=== PATIENT | female | born 1950 | race Two or more races ===

== ENCOUNTER 2024-10-14 10:28 | Inpatient (IN) | payer OTHER, MEDICAID ==
[~2024-10-14] VITALS: Ht 157.5 cm; Wt 70.5 kg
--- NOTE | 2024-10-14 10:34 | ED.PDOC ---
Altered Mental Status HPI Comments HPI: 74y F who presents to the ED via EMS for chief complaint of altered mental status and presents to the ED with the following: - EMS states pt has been having weakness for the past 2 days according to family - pt has been having nausea and vomiting in this time period and has been unable to keep anything down - pt is noted to be awake and alert in the ED and is alert and oriented x 1 only oriented to self name. - pt has history of liver cirrhosis and is noted to have abdominal distention with pt family telling EMS pt had paracentesis recently - pt noted to have lower extremity swelling and is known to not be complaint with Lasix. - pt unable to answer any further questions due to alerted mental status. VITALS: Temp: 98.0F RR: 14 02 sat : 98% on room air HR: 88 BP: 120/76 PMH: cirrhosis, HTN, PSH: unknown Social history: denies tobacco use, denies ETOH use, denies drug use Medications: spironolactone, lasix, omeprazole Allergies: nkda HPI: Poor Historian. Past Medcial History: Past Surgical History: REVIEW OF SYSTEMS: CONSTITUTIONAL: Denies acute: fever, diaphoresis, chills, HEAD: Denies acute: headache, photophobia Eyes: Denies acute: Double vision, vision loss, eye pain, eye discharge. EARS: Denies acute: tinnitus, hearing loss, ear discharge, ear pain, THROAT: Denies acute: sore throat, swelling, difficulty swallowing , pain with swallowing, change in voice. NECK: Denies acute: neck pain, neck swelling, stiff neck. HEART: Denies acute : chest pain, palpitations, LUNGS: Denies acute: SOB, wheezing, cough, hemoptysis ABDOMEN: Denies acute: abdominal pain, diarrhea, melena , hematemesis, hematochezia SKIN: Denies acute: rash, redness, lesions, itchiness. EXTREMITIES: Denies acute: calf pain, numbness, tingling, weakness, denies pain in extremity. Denies acute: Low back pain. Neuro: Denies acute: focal neurological deficit, motor or sensory focal neurological deficit, tremors, seizure like activity, loss of bowel or bladder function, cauda equina like symptoms. : Denies acute: dysuria, hematuria, flank pain, increase in urinary frequency. PSYCH: Denies acute: hallucination, suicidal ideation, homicidal ideation. FEMALE: Denies acute: abnormal vaginal bleeding, foul odor, unusual discharge. PHYSICAL EXAM: General: no acute distress, awake and alert. Head: normocephalic, atraumatic. Neck: supple, trachea is midline, no swelling. Throat: Normal phonation. Eyes:, no erythema, no purulent discharge, no proptosis, no icterus. Heart: regular rate, regular rhythm, no significant murmur appreciated. Lungs: no apparent respiratory distress, Able to speak in full sentences. No wheezing, no rhonchi, no crackles. No stridors Clear to auscultation bilaterally. Abdomen: non tender to palpation, noted distention , soft, no guarding, no rebound, + bowel sounds. Neuro: Awake, Alert, oriented to name, self, follows commands Skin: no petechia, no purpura, no cyanosis, non-pale, not jaundice. Lower extremities: --1/4 - Pitting edema no deformity, no focal swelling, no calf TTP. Makes eye contact. moves all four extremities. Face: no apparent facial droop. Time Seen by MD: 10:31 Reviewed Notes: Nurses Notes, Allergies Allergies: Coded Allergies: NO KNOWN ALLERGIES (Unverified , 10/14/24) Information Source: Patient, Emergency Med Personnel Mode of Arrival: EMS Past Medical History PAST MEDICAL HISTORY: HTN, Liver Surgical History: Unknown [employer]IC History: Unknown Family History Family History: Unknown Social History Smoker: Non-Smoker Alcohol: Denies ETOH Use Drugs: Denies Drug Use Lives In: Home Was a procedure done? Was a procedure done?: No Differential Diagnosis (ALOC) Differential Diagnosis: Other (DDX include CVA, TGA, cerebellar ischemia/infarct, carotid stenosis, Intracranial mass/infection/bleed, encephalopathy, electrolyte abnormality, thyroid disease, hydrocephalus, hypoglycemia, drug toxicity, cardiac arrhythmia, seizure, infection in the elderly, Hyperammonemia., kidney failure., sepsis.) X-Ray, Labs, Meds, VS Vital Signs Date Time Temp Pulse Resp B/P (MAP) Pulse Ox O2 Delivery O2 Flow Rate FiO2 10/14/24 14:00 86 12 108/61 (77) 100 10/14/24 12:00 86 10/14/24 11:27 80 18 98 Room Air* 0 21 10/14/24 11:26 98.0 80 18 122/72 (89) 98 98.0 10/14/24 10:52 126/42 10/14/24 10:36 98.0 88 14 120/76 (91) 98 10/14/24 10:33 83 Lab Test 10/14/24 11:00 Range/Units White Blood Count 3.0 L 4.4-10.8 10^3/uL Red Blood Count 3.34 L 4.0-5.20 10^6/uL Hemoglobin 8.0 L 12.2-16.2 g/dL Hematocrit 26.5 L 36.0-46.0 % Mean Corpuscular Volume 79.4 L 80.0-100.0 fL Mean Corpuscular Hemoglobin 24.0 L 28.0-32.0 pg Mean Corpuscular Hemoglobin Concent 30.3 L 32.0-36.0 g/dL Red Cell Distribution Width 17.5 H 11.8-14.3 % Platelet Count 74 L 140-450 10^3/uL Mean Platelet Volume 8.4 6.9-10.8 fL Neutrophils (%) (Auto) 70.4 37.0-80.0 % Lymphocytes (%) (Auto) 21.9 10.0-50.0 % Monocytes (%) (Auto) 6.3 0.0-12.0 % Eosinophils (%) (Auto) 0.1 0.0-7.0 % Basophils (%) (Auto) 1.3 0.0-2.0 % Neutrophils # (Auto) 2.1 1.6-8.6 10 ^3/uL Lymphocytes # (Auto) 0.7 0.4-5.4 10 ^3/uL Monocytes # (Auto) 0.2 0-1.3 10 ^3/uL Eosinophils # (Auto) 0 0-0.8 10 ^3/uL Basophils # (Auto) 0 0-0.2 10 ^3/uL Nucleated Red Blood Cells 0.7 % Sodium Level 146 H 136-145 mmol/L Potassium Level 4.4 3.5-5.1 mmol/L Chloride Level 118 H 98-107 mmol/L Carbon Dioxide Level 19 L 20-31 mmol/L Anion Gap 9 5-15 Blood Urea Nitrogen 44 H 9-23 mg/dL Creatinine 1.79 H 0.550-1.02 mg/dL Glomerular Filtration Rate Calc 30 >90 mL/min BUN/Creatinine Ratio 24.6 H 10.0-20.0 Serum Glucose 74 74-106 mg/dL Lactic Acid Level 1.7 0.4-2.0 mmol/L Calcium Level 9.0 8.7-10.4 mg/dL Magnesium Level 2.6 1.6-2.6 mg/dL Total Bilirubin 0.8 0.2-1.0 mg/dL Aspartate Amino Transferase (AST) 66 H 13-40 U/L Alanine Aminotransferase (ALT) 36 7-40 U/L Alkaline Phosphatase 97 46-116 U/L Ammonia 105 H 11-32 umol/L Troponin I High Sensitivity 74 *H </=34 ng/L B-Type Natriuretic Peptide 128.70 0-100 pg/mL Total Protein 5.2 L 5.7-8.2 g/dL Albumin 2.4 L 3.2-4.8 g/dL Current Medications Medications (Trade) Dose Ordered Sig/Leti Route Start Time Stop Time Status Last Admin Furosemide (Lasix Injection) 40 mg ONCE ONCE IV 10/14/24 10:45 10/14/24 10:46 DC 10/14/24 10:52 Lactulose 60 ml ONCE ONCE PO 10/14/24 10:45 10/14/24 10:46 DC 10/14/24 10:52 Ondansetron HCl (Zofran) 4 mg ONCE ONCE IV 10/14/24 12:15 10/14/24 12:16 DC 10/14/24 12:19 [place] [id number] Ph: [phone] DIAGNOSTIC IMAGING Diagnostic Imaging Report : [id number] Signed PATIENT: GEORGE ZUNIGA ACCT: [id number] UNIT: [id number] : 1950 LOC: ER ROOM / BED: / AGE / SEX: 74 / F ADM STATUS: REG ER SERVICE 1418 ORDERING PHYSICIAN: KEVIN RYDER DO PROCEDURE(s): ABDL - ABDOMEN LIMITED REASON: EVAL ASCITES ORDER NUMBER(s): [id number], ACCESSION NUMBER(s): [id number] ULTRASOUND ABDOMEN LIMITED INDICATION: EVAL ASCITES TECHNIQUE: Ultrasound of the 4 quadrants of the abdominal cavity. COMPARISON: None FINDINGS: There is moderate amount of fluid seen in all 4 quadrants of the abdominal cavity. IMPRESSION: 1. Moderate amount of ascites. HS:Y ATED BY: HUSSEIN CARMONA MD DICTATED DATE/TIME: 10/14/24 1440 SIGNED BY: HUSSEIN CARMONA MD SIGNED DATE/TIME: 10/14/24 1440 CC: [place] [id number] Ph: [phone] DIAGNOSTIC IMAGING Diagnostic Imaging Report : [id number] Signed PATIENT: GEORGE ZUNIGA ACCT: [id number] UNIT: [id number] : 1950 LOC: ER ROOM / BED: / AGE / SEX: 74 / F ADM STATUS: REG ER SERVICE 1238 ORDERING PHYSICIAN: KEVIN RYDER DO PROCEDURE(s): HWOCT - HEAD WITHOUT CONTRAST REASON: [facility] ORDER NUMBER(s): [id number], ACCESSION NUMBER(s): [id number] EXAM: CT HEAD WITHOUT CONTRAST HISTORY: AMS COMPARISON: None TECHNIQUE: Axial images of the head were obtained and reformatted in coronal and sagittal planes. All CT scans at this medical facility are performed using dose modulation techniques as appropriate to a performed exam including the following: Automated exposure control was utilized; adjustment of the MA and/or KV according to patient size; and use of iterative reconstruction technique. CT Dose: CTDI volume is 52 mGy. Dose-length product is 925 mGy*cm FINDINGS: There is no evidence of acute intracranial hemorrhage, mass, mass effect midline shift. There is no hydrocephalus or extra-axial fluid collection. There are several small hypodense foci in the left caudate head region which may represent chronic lacunar infarcts. Cardenas-white matter differentiation is maintained. Cardenas- white matter differentiation otherwise appears maintained. The visualized paranasal sinuses and mastoid air cells are clear. The calvarium is intact. IMPRESSION: 1. No acute intracranial process. HS:Y ATED BY: HUSSEIN CARMONA MD DICTATED DATE/TIME: 10/14/24 1320 SIGNED BY: HUSSEIN CARMONA MD SIGNED DATE/TIME: 10/14/24 1320 CC: [place] [id number] Ph: [phone] DIAGNOSTIC IMAGING Diagnostic Imaging Report : [id number] Signed PATIENT: GEORGE ZUNIGA ACCT: [id number] UNIT: [id number] : 1950 LOC: ER ROOM / BED: / AGE / SEX: 74 / F ADM STATUS: REG ER SERVICE 10 ORDERING PHYSICIAN: KEVIN RYDER DO PROCEDURE(s): ABPL - CT AB PEL WO CON-NO ORAL OR IV REASON: NAUSEA/VOMITING ORDER NUMBER(s): [id number], ACCESSION NUMBER(s): [id number] Exam: CT CT AB PEL WO CON-NO ORAL OR IV History: NAUSEA/VOMITING Comparison Study: None available at time of dictation. TECHNIQUE: Multidetector CT of the abdomen was performed from lung bases to pubic symphysis. Imaging was performed without IV contrast. Axial, coronal and sagittal multiplanar reformats were obtained from the axial data set by the technologist. Radiation Dose Information: CT Dose: CTDI volume is 14.47 mGy. Dose-length product is 794.27 mGy*cm FINDINGS: Evaluation of solid organs is limited due to lack of intravenous contrast use. Findings: Lung Bases: Scattered bibasilar ground-glass opacities. Normal heart size. No pleural or pericardial effusion. Liver: Cirrhotic liver morphology. No focal lesions are identified, though evaluation is severely limited in the absence of IV contrast. Gallbladder and Biliary Tree: Cholelithiasis. Spleen: Unremarkable Pancreas: The pancreas is grossly normal in appearance. Adrenal Glands: Unremarkable Kidneys: Kidneys are grossly normal without calculi or hydronephrosis. Bladder: Issa catheter within the urinary bladder. Bowel: Large hiatal hernia Small bowel and colon are normal in caliber and distribution. Diverticulosis. The appendix is not visualized. Ascites: Absent Lymphadenopathy: No mesenteric, retroperitoneal or periportal lymphadenopathy. Abdominal Wall and Mesentery: Diffuse corporal anasarca. Mesenteric edema. Vasculature: The visualized abdominal aorta is normal in size and caliber. Evaluation of abdominal and pelvic vessels is limited due to lack of intravenous contrast. Pelvic Organs: Curvilinear metallic density within the lower pelvis Musculoskeletal: No aggressive focal bony lesions, acute fractures or dislocation. Severe degenerative changes of the spine. Soft tissues: Unremarkable IMPRESSION: 1. Cirrhosis with large volume abdominal ascites. 2. Corporal anasarca and mesenteric edema. 3. Curvilinear metallic density within the lower pelvis of uncertain significance. 4. Cholelithiasis. 5. Large hiatal hernia. 6. Issa catheter in place. 7. Nonvisualized appendix. 8. Diverticulosis. Radiation optimization: All CT scans at this facility use at least one of these dose optimization techniques: automated exposure control mA and/or kV adjustment per patient size (includes targeted exams where dose is matched to clinical indication) or iterative reconstruction. HS:Y ATED BY: MANDIE ODELL DO DICTATED DATE/TIME: 10/14/241306 SIGNED BY: MANDIE ODELL DO SIGNED DATE/TIME: 10/14/241306 CC: [place] [id number] Ph: [phone] DIAGNOSTIC IMAGING Diagnostic Imaging Report : [id number] Signed PATIENT: GEORGE ZUNIGA ACCT: [id number] UNIT: [id number] : 1950 LOC: ER ROOM / BED: / AGE / SEX: 74 / F ADM STATUS: REG ER SERVICE 1034 ORDERING PHYSICIAN: KEVIN RYEDR DO PROCEDURE(s): CXRP - CHEST PORTABLE REASON: AMS ORDER NUMBER(s): [id number], ACCESSION NUMBER(s): [id number] CHEST RADIOGRAPH Indication: AMS Technique: Single frontal view of the chest was obtained COMPARISON: None FINDINGS: Lines and Tubes: None Lungs: Congestion Pleura: No effusion. No pneumothorax. Cardiomediastinal contours: Unremarkable Bones: Unremarkable IMPRESSION: Congestion ATED BY: REJI MACEDO MD DICTATED DATE/TIME: 10/14/241107 SIGNED BY: REJI MACEDO MD SIGNED DATE/TIME: 10/14/241107 CC: Time of 1ST Reevaluation: 12:41 (The case was discussed with the admitting team (HPI, physical exam, labs and diagnostic tests that were available at the time of disposition, ED course, treatment plan) on the phone. They agreed to admit the patient to their service and assume care of this patient from this point forward. ) Patient Education/Counseling: Other (altered) Family Education/Counseling: No Family Present Comments Patient presented with the above HPI.---altered mental status---workup was initiated. patient was found with the above mentioned diagnosis. the following medications were ordered: Lasix, lactulose, the following tests were ordered: EKGx1, chest x-ray, ammonia level, UA, troponin 1, magnesium, lactic acid, CMP, CBC, BNP, Patient ED course and VS have been stabilized. Patient has been reassessed in the ED and remained in a stable condition. Patient has been observed in the ED adequate length of time to insure improvement/stability. Escalation of care considered: Consideration of escalation to observation or admission. patient was admitted to the medicine team for further evaluation and treatment of their presentation. All the reports of any imaging studies that were ordered by myself were reviewed by myself. Departure 1 Departure Time of Disposition: 12:04 Impression: Primary Impression: Hepatic encephalopathy Additional Impressions: Hyperammonemia Anemia Thrombocytopenia Ascites Liver cirrhosis Disposition: ADMITTED INPATIENT Admit to: Tele Condition: Guarded Discharged With: Self Critical Care Note Critical Care Time?: No I personally scribed for KEVIN RYDER DO ([email or web address]) on 10/14/24 at 10:34. Electronically submitted by Jillian Rankin ([email or web address] I personally scribed for KEVIN RYDER DO ([email or web address]) on 10/14/24 at 11:22. Electronically submitted by Jillian Rankin ([email or web address]). I personally scribed for KEVIN RYDER DO ([email or web address]) on 10/14/24 at 14:36. Electronically submitted by Jillian Rankin ([email or web address]). I personally scribed for KEVIN RYDER DO ([email or web address]) on 10/14/24 at 21:59. Electronically submitted by Jillian Rankin ([email or web address]). KEVIN RYDER DO Oct 14, 2024 10:34
[2024-10-14] MEDS: LACTULOSE 20Gm/30ML SOLN PO ONE (10:52)
[2024-10-14] MEDS: FUROSEMIDE 40 MG/4 ML VIAL IV ONE (10:52)
--- NOTE | 2024-10-14 11:10 | DVH ---
CHEST RADIOGRAPH Indication: AMS Technique: Single frontal view of the chest was obtained COMPARISON: None FINDINGS: Lines and Tubes: None Lungs: Congestion Pleura: No effusion. No pneumothorax. Cardiomediastinal contours: Unremarkable Bones: Unremarkable IMPRESSION: Congestion
[2024-10-14 11:25] LABS: Basophils # (auto) 0 10 ^3/uL (0-0.2); Eosinophils # (auto) 0 10 ^3/uL (0-0.8); Eosinophils % (auto) 0.1 % (0.0-7.0); Monocytes # (auto) 0.2 10 ^3/uL (0-1.3); Monocytes % (auto) 6.3 % (0.0-12.0); Neutrophils # (auto) 2.1 10 ^3/uL (1.6-8.6); Red Cell Distribution Width 17.5 % (11.8-14.3)
[2024-10-14 11:27] VITALS: PULSE 80; RESP 18; O2SAT 98
[2024-10-14 11:27] LABS: Basophils % (auto) 1.3 % (0.0-2.0); Hematocrit 26.5 % (36.0-46.0); Lymphocytes # (auto) 0.7 10 ^3/uL (0.4-5.4); Lymphocytes % (auto) 21.9 % (10.0-50.0); Mean Corpuscular Hgb Conc. 30.3 g/dL (32.0-36.0); Mean Corpuscular Volume 79.4 fL (80.0-100.0); Neutrophils % (auto) 70.4 % (37.0-80.0); Nucleated Red Blood Cells % 0.7 %; Platelet Count (auto) 74 10^3/uL (140-450); Red Blood Cells 3.34 10^6/uL (4.0-5.20)
[2024-10-14 11:39] LABS: Alanine Aminotransferase 36 U/L (7-40); Alkaline Phosphatase 97 U/L (46-116); Anion Gap 9 (5-15); BUN/Creatinine Ratio 24.6 (10.0-20.0); Glucose 74 mg/dL (74-106); Magnesium 2.6 mg/dL (1.6-2.6); Potassium 4.4 mmol/L (3.5-5.1)
[2024-10-14 11:52] LABS: Albumin 2.4 g/dL (3.2-4.8); Aspartate Aminotransferase 66 U/L (13-40); Blood Urea Nitrogen 44 mg/dL (9-23); Carbon Dioxide 19 mmol/L (20-31); Chloride 118 mmol/L (98-107); Sodium 146 mmol/L (136-145); Total Protein 5.2 g/dL (5.7-8.2)
[2024-10-14 12:16] LABS: Bilirubin, Total 0.8 mg/dL (0.2-1.0)
[2024-10-14] MEDS: ONDANSETRON HCL 4 MG/2 ML VIAL IV ONE (12:19)
--- NOTE | 2024-10-14 13:09 | DVH ---
Exam: CT CT AB PEL WO CON-NO ORAL OR IV History: NAUSEA/VOMITING Comparison Study: None available at time of dictation. TECHNIQUE: Multidetector CT of the abdomen was performed from lung bases to pubic symphysis. Imaging was performed without IV contrast. Axial, coronal and sagittal multiplanar reformats were obtained fr om the axial data set by the technologist. Radiation Dose Information: CT Dose: CTDI volume is 14.47 mGy. Dose-length product is 794.27 mGy*cm FINDINGS: Evaluation of solid organs is limited due to lack of intravenous contrast use. Findings: Lung Bases: Scattered bibasilar ground-glass opacities. Normal heart size. No pleural or pericardial effusion. Liver: Cirrhotic liver morphology. No focal lesions are identified, though evaluation is severely li mited in the absence of IV contrast. Gallbladder and Biliary Tree: Cholelithiasis. Spleen: Unremarkable Pancreas: The pancreas is grossly normal in appearance. Adrenal Glands: Unremarkable Kidneys: Kidneys are grossly normal without calculi or hydronephrosis. Bladder: Issa catheter within the urinary bladder. Bowel: Large hiatal hernia Small bowel and colon are normal in caliber and distribution. Diverticulos is. The appendix is not visualized. Ascites: Absent Lymphadenopathy: No mesenteric, retroperitoneal or periportal lymphadenopathy. Abdominal Wall and Mesentery: Diffuse corporal anasarca. Mesenteric edema. Vasculature: The visualized abdominal aorta is normal in size and caliber. Evaluation of abdominal a nd pelvic vessels is limited due to lack of intravenous contrast. Pelvic Organs: Curvilinear metallic density within the lower pelvis Musculoskeletal: No aggressive focal bony lesions, acute fractures or dislocation. Severe degenerativ e changes of the spine. Soft tissues: Unremarkable IMPRESSION: 1. Cirrhosis with large volume abdominal ascites. 2. Corporal anasarca and mesenteric edema. 3. Curvilinear metallic density within the lower pelvis of uncertain significance. 4. Cholelithiasis. 5. Large hiatal hernia. 6. Issa catheter in place. 7. Nonvisualized appendix. 8. Diverticulosis. Radiation optimization: All CT scans at this facility use at least one of these dose optimization te chniques: automated exposure control mA and/or kV adjustment per patient size (includes targeted exa ms where dose is matched to clinical indication) or iterative reconstruction. HS:Y
--- NOTE | 2024-10-14 13:21 | DVH ---
EXAM: CT HEAD WITHOUT CONTRAST HISTORY: AMS COMPARISON: None TECHNIQUE: Axial images of the head were obtained and reformatted in coronal and sagittal planes. All CT scans at this medical facility are performed using dose modulation techniques as appropriate t o a performed exam including the following: Automated exposure control was utilized; adjustment of th e MA and/or KV according to patient size; and use of iterative reconstruction technique. CT Dose: CTDI volume is 52 mGy. Dose-length product is 925 mGy*cm FINDINGS: There is no evidence of acute intracranial hemorrhage, mass, mass effect midline shift. There is no h ydrocephalus or extra-axial fluid collection. There are several small hypodense foci in the left caud ate head region which may represent chronic lacunar infarcts. Cardenas-white matter differentiation is ma intained. Cardenas-white matter differentiation otherwise appears maintained. The visualized paranasal sinuses and mastoid air cells are clear. The calvarium is intact. IMPRESSION: 1. No acute intracranial process. HS:Y
[2024-10-14] MEDS ORDERED: MORPHINE SULFATE INJ 2 MG/ml SYRG IV PRN (14:30)
[2024-10-14] MEDS ORDERED: NITROGLYCERIN 0.4 MG SL TAB SL PRN (14:30)
[2024-10-14] MEDS: SODIUM CHLORIDE 0.9% 1,000 ML IV SCH (14:30)
--- NOTE | 2024-10-14 14:41 | DVH ---
ULTRASOUND ABDOMEN LIMITED INDICATION: EVAL ASCITES TECHNIQUE: Ultrasound of the 4 quadrants of the abdominal cavity. COMPARISON: None FINDINGS: There is moderate amount of fluid seen in all 4 quadrants of the abdominal cavity. IMPRESSION: 1. Moderate amount of ascites. HS:Y
[2024-10-14 15:33] LABS: INR 1.41 (0.9-1.15); Partial Thromboplastin Time 38.8 SEC (24.5-34.5); Prothrombin Time 14.6 sec (9.3-11.8)
--- NOTE | 2024-10-14 15:55 | DVHHP2 ---
History of Present Illness Reason for Visit: Altered level of sensorium History of Present Illness - EMS states pt has been having weakness for the past 2 days according to family - pt has been having nausea and vomiting in this time period and has been unable to keep anything down - pt is noted to be awake and alert in the ED and is alert and oriented x 1 only oriented to self name. - pt has history of liver cirrhosis and is noted to have abdominal distention with pt family telling EMS pt had paracentesis recently - pt noted to have lower extremity swelling and is known to not be complaint with Lasix. - pt unable to answer any further questions due to alerted mental status. Past Medical History Cirrhosis of the liver, end-stage liver disease with ascites, hepatic encephalopathy Past Surgical History: None Family History: Hypertension Smoke: No ALCOHOL: rare Drugs: None Lives: with Family Review of Systems Review of Systems Swazi-speaking female. Says yes no but unable to give much history when asked questions. Allergies: Coded Allergies: NO KNOWN ALLERGIES (Unverified , 10/14/24) Medications Current Medications Medications Dose Ordered Sig/Leti Route Start Time Stop Time Status Last Admin Dose Admin Nitroglycerin 0.4 mg Q5MINP PRN SL 10/14/24 14:30 Morphine Sulfate 2 mg Q30M PRN IV 10/14/24 14:30 Sodium Chloride 1,000 ml @ 100 mls/hr Q10H IV 10/14/24 14:30 10/14/24 14:30 100 MLS/HR Lactulose 30 ml Q4HR PO 10/14/24 18:00 Rifaximin 550 mg BID PO 10/14/24 22:00 Ondansetron HCl 4 mg Q4HPRN PRN IV 10/14/24 14:30 Acetaminophen 650 mg Q4HP PRN PO 10/14/24 14:30 Pantoprazole Sodium 40 mg BID IV 10/14/24 22:00 Exam Vital Signs Vital Signs Date Time Temp Pulse Resp B/P (MAP) Pulse Ox O2 Delivery O2 Flow Rate FiO2 10/14/24 15:37 82 18 118/68 (85) 100 10/14/24 11:27 Room Air* 0 21 10/14/24 11:26 98.0 98.0 Exam Elderly female in bed comfortable alert awake oriented to self only. HEENT notable for poor dentition. Pupils equal round react to light. Neck supple no JVD. Heart regular rate and rhythm S1 plus S2 without audible murmurs. Lungs fair air movement chest tube will expansion. No wheezing noted. Abdomen is distended. Tympanic to palpation. Nontender. Positive bowel sounds. Unable to palpate any organomegaly. Extremities trace edema around the ankles. Chronic venous stasis noted around the ankles/calf region in lower extremities. No focal neurological deficits noted Labs/Xrays Labs Test 10/14/24 14:48 10/14/24 11:00 Range/Units Prothrombin Time 14.6 H 9.3-11.8 sec Prothrombin Time INR 1.41 H 0.9-1.15 Activated Partial Thromboplast Time 38.8 H 24.5-34.5 SEC Lactic Acid Level 1.7 0.4-2.0 mmol/L Troponin I High Sensitivity 64 *H </=34 ng/L White Blood Count 3.0 L 4.4-10.8 10^3/uL Red Blood Count 3.34 L 4.0-5.20 10^6/uL Hemoglobin 8.0 L 12.2-16.2 g/dL Hematocrit 26.5 L 36.0-46.0 % Mean Corpuscular Volume 79.4 L 80.0-100.0 fL Mean Corpuscular Hemoglobin 24.0 L 28.0-32.0 pg Mean Corpuscular Hemoglobin Concent 30.3 L 32.0-36.0 g/dL Red Cell Distribution Width 17.5 H 11.8-14.3 % Platelet Count 74 L 140-450 10^3/uL Mean Platelet Volume 8.4 6.9-10.8 fL Neutrophils (%) (Auto) 70.4 37.0-80.0 % Lymphocytes (%) (Auto) 21.9 10.0-50.0 % Monocytes (%) (Auto) 6.3 0.0-12.0 % Eosinophils (%) (Auto) 0.1 0.0-7.0 % Basophils (%) (Auto) 1.3 0.0-2.0 % Neutrophils # (Auto) 2.1 1.6-8.6 10 ^3/uL Lymphocytes # (Auto) 0.7 0.4-5.4 10 ^3/uL Monocytes # (Auto) 0.2 0-1.3 10 ^3/uL Eosinophils # (Auto) 0 0-0.8 10 ^3/uL Basophils # (Auto) 0 0-0.2 10 ^3/uL Nucleated Red Blood Cells 0.7 % Sodium Level 146 H 136-145 mmol/L Potassium Level 4.4 3.5-5.1 mmol/L Chloride Level 118 H 98-107 mmol/L Carbon Dioxide Level 19 L 20-31 mmol/L Anion Gap 9 5-15 Blood Urea Nitrogen 44 H 9-23 mg/dL Creatinine 1.79 H 0.550-1.02 mg/dL Glomerular Filtration Rate Calc 30 >90 mL/min BUN/Creatinine Ratio 24.6 H 10.0-20.0 Serum Glucose 74 74-106 mg/dL Calcium Level 9.0 8.7-10.4 mg/dL Magnesium Level 2.6 1.6-2.6 mg/dL Total Bilirubin 0.8 0.2-1.0 mg/dL Aspartate Amino Transferase (AST) 66 H 13-40 U/L Alanine Aminotransferase (ALT) 36 7-40 U/L Alkaline Phosphatase 97 46-116 U/L B-Type Natriuretic Peptide 128.70 0-100 pg/mL Total Protein 5.2 L 5.7-8.2 g/dL Albumin 2.4 L 3.2-4.8 g/dL Assessment/Plan Assessment/Plan Head CT is negative for any acute stroke. Labs reviewed. We will admit to hospital. We will do serial troponins, 2D echo and cardiac eval. Patient is started on lactulose for elevated ammonia level. We will continue this. We will have GI consultation. We will try to obtain a paracentesis once again given abdominal distention. Otherwise continue rest of supportive care and t reatment. Further clinical management per clinical course and pending evaluations studies. Overall prognosis remains guarded given her advanced liver cirrhosis with ascites and hepatic encephalopathy. Plan discussed with: Patient, Other My Orders Orders - ABHISHEK FINE MD Procedure Category Date Status Time Paracentesis 10/14/24 Logged 14:16 * Radiologist Consult CONS 10/14/24 Transmitted 14:16 Admit ADMIT 10/14/24 Transmitted 14:20 Clear Liq Diet DIET 10/14/24 Transmitted Dinner * Gi Dvh Blind Lacer CONS 10/14/24 Transmitted 14:20 * Cardiology Consult CONS 10/14/24 Transmitted 14:20 Ammonia LAB 10/14/24 In Process 14:20 Complete Blood Count LAB 10/15/24 Verified 04:00 Comprehensive LAB 10/15/24 Verified Metabolic Panel 04:00 Ammonia LAB 10/15/24 Verified 04:00 Urinalysis LAB 10/15/24 Verified 04:00 Urine Bacterial BERT 10/14/24 Logged Culture 14:20 Lactic Acid W/ Reflex LAB 10/15/24 Verified Order 04:00 Nitroglycerin PHA 10/14/24 In Process Sublingual (Ntrostat 14:30 Morphine Sulfate PHA 10/14/24 In Process Injection 14:30 Stat Ekg For Chest ARCHANA 10/14/24 In Process Pain 14:20 Notify Of Changes ARCHANA 10/14/24 In Process From Base 14:20 Dress Shoe Inspector For ARCHANA 10/14/24 In Process 24 Hours 14:20 Emergency Dysrhythmia [facility] 10/14/24 In Process Protocol 14:20 Rhythm Strips Once [facility] 10/14/24 In Process Every Shift 14:20 Oxygen By Nasal RT 10/14/24 Transmitted Cannula 14:20 Troponin-I Hs LAB 10/14/24 Logged 17:20 Sodium Chloride 0.9% PHA 10/14/24 In Process 14:30 Lactulose Oral PHA 10/14/24 In Process 18:00 Rifaximin (Xifaxan) PHA 10/14/24 In Process 22:00 Ondansetron Hcl PHA 10/14/24 In Process (Zofran) 14:30 Acetaminophen Tablet PHA 10/14/24 In Process (Tylenol Tablet) 14:30 Pantoprazole PHA 10/14/24 In Process (Protonix) 22:00 Troponin-I Hs LAB 10/15/24 Verified 06:00 Covid19 Antigen [facility] LAB 10/14/24 Logged Rapid Influenza A&B LAB 10/14/24 Logged 14:25 Pt Request For Service PT 10/14/24 Logged 14:26 *Consult CONS 10/14/24 Transmitted / 15:34 Problem List: (1) Hepatic encephalopathy (2) Anemia (3) Thrombocytopenia (4) Hyperammonemia ABHISHEK FINE MD Oct 14, 2024 15:55
--- NOTE | 2024-10-14 16:29 | DVHINCON2 ---
Date of service: Oct 14, [address] Soledad Garvin Reason for Consultation Hepatic encephalopathy History of Present Illness 74y F who presents to the ED via EMS for chief complaint of altered mental status ; two day history of weakness nausea vomiting and inability to keep food down. There was no reported GI bleeding. Patient has some mild abdominal discomfort and has a history of ascites and had recent paracentesis. Patient is somewhat altered awake and alert and oriented x1. I was asked to evaluate her for underlying history of cirrhosis ascites and hepatic encephalopathy Past Medical History Past Medical History Cirrhosis of the liver, end-stage liver disease with ascites, hepatic encephalopathy Past Surgical History Past Surgical History: Paracentesis Allergies: Coded Allergies: NO KNOWN ALLERGIES (Unverified , 10/14/24) Current Medications Current Medications Medications (Trade) Dose Ordered Sig/Leti Route PRN Reason Start Time Stop Time Status Last Admin Nitroglycerin (Ntrostat Sublingual) 0.4 mg Q5MINP PRN SL FOR CHEST PAIN 10/14/24 14:30 Morphine Sulfate 2 mg Q30M PRN IV FOR CHEST PAIN 10/14/24 14:30 Sodium Chloride 1,000 ml @ 100 mls/hr Q10H IV 10/14/24 14:30 10/14/24 14:30 Lactulose 30 ml Q4HR PO 10/14/24 18:00 Rifaximin (Xifaxan) 550 mg BID PO 10/14/24 22:00 Ondansetron HCl (Zofran) 4 mg Q4HPRN PRN IV NAUSEA / VOMITING 10/14/24 14:30 Acetaminophen (Tylenol Tablet) 650 mg Q4HP PRN PO PAIN SCALE 1-3 OR TEMP>100.4 10/14/24 14:30 Pantoprazole Sodium (Protonix) 40 mg BID IV 10/14/24 22:00 Vital Signs Vital Signs Date Time Temp Pulse Resp B/P (MAP) Pulse Ox O2 Delivery O2 Flow Rate FiO2 10/14/24 15:37 82 18 118/68 (85) 100 10/14/24 11:27 Room Air* 0 21 10/14/24 11:26 98.0 98.0 Physical Exam Elderly thin female in bed comfortable alert awake oriented to self only. HEENT notable for poor dentition. Pupils equal round react to light. Neck supple no JVD. Lungs fair air movement chest tube will expansion. No wheezing noted Heart regular rate and rhythm S1 plus S2 without audible murmurs. Abdomen is distended. Tympanic to palpation. Nontender. Positive bowel sounds. Extremities trace edema around the ankles. Chronic venous stasis noted around the ankles/calf region in lower extremities. No focal neurological deficits noted Labs/Diagnostic Data Labs Test 10/14/24 14:48 10/14/24 11:00 Range/Units Prothrombin Time 14.6 H 9.3-11.8 sec Prothrombin Time INR 1.41 H 0.9-1.15 Activated Partial Thromboplast Time 38.8 H 24.5-34.5 SEC Lactic Acid Level 1.7 0.4-2.0 mmol/L Ammonia 89 H 11-32 umol/L Troponin I High Sensitivity 64 *H </=34 ng/L White Blood Count 3.0 L 4.4-10.8 10^3/uL Red Blood Count 3.34 L 4.0-5.20 10^6/uL Hemoglobin 8.0 L 12.2-16.2 g/dL Hematocrit 26.5 L 36.0-46.0 % Mean Corpuscular Volume 79.4 L 80.0-100.0 fL Mean Corpuscular Hemoglobin 24.0 L 28.0-32.0 pg Mean Corpuscular Hemoglobin Concent 30.3 L 32.0-36.0 g/dL Red Cell Distribution Width 17.5 H 11.8-14.3 % Platelet Count 74 L 140-450 10^3/uL Mean Platelet Volume 8.4 6.9-10.8 fL Neutrophils (%) (Auto) 70.4 37.0-80.0 % Lymphocytes (%) (Auto) 21.9 10.0-50.0 % Monocytes (%) (Auto) 6.3 0.0-12.0 % Eosinophils (%) (Auto) 0.1 0.0-7.0 % Basophils (%) (Auto) 1.3 0.0-2.0 % Neutrophils # (Auto) 2.1 1.6-8.6 10 ^3/uL Lymphocytes # (Auto) 0.7 0.4-5.4 10 ^3/uL Monocytes # (Auto) 0.2 0-1.3 10 ^3/uL Eosinophils # (Auto) 0 0-0.8 10 ^3/uL Basophils # (Auto) 0 0-0.2 10 ^3/uL Nucleated Red Blood Cells 0.7 % Sodium Level 146 H 136-145 mmol/L Potassium Level 4.4 3.5-5.1 mmol/L Chloride Level 118 H 98-107 mmol/L Carbon Dioxide Level 19 L 20-31 mmol/L Anion Gap 9 5-15 Blood Urea Nitrogen 44 H 9-23 mg/dL Creatinine 1.79 H 0.550-1.02 mg/dL Glomerular Filtration Rate Calc 30 >90 mL/min BUN/Creatinine Ratio 24.6 H 10.0-20.0 Serum Glucose 74 74-106 mg/dL Calcium Level 9.0 8.7-10.4 mg/dL Magnesium Level 2.6 1.6-2.6 mg/dL Total Bilirubin 0.8 0.2-1.0 mg/dL Aspartate Amino Transferase (AST) 66 H 13-40 U/L Alanine Aminotransferase (ALT) 36 7-40 U/L Alkaline Phosphatase 97 46-116 U/L B-Type Natriuretic Peptide 128.70 0-100 pg/mL Total Protein 5.2 L 5.7-8.2 g/dL Albumin 2.4 L 3.2-4.8 g/dL USG IMPRESSION: 1. Moderate amount of ascites. CT SCAN ABD PELVIS IMPRESSION: 1. Cirrhosis with large volume abdominal ascites. 2. Corporal anasarca and mesenteric edema. 3. Curvilinear metallic density within the lower pelvis of uncertain s ignificance. 4. Cholelithiasis. 5. Large hiatal hernia. 6. Issa catheter in place. 7. Nonvisualized appendix. 8. Diverticulosis. Problems(with codes): (1) Hyperammonemia (2) Thrombocytopenia (3) Anemia (4) Hepatic encephalopathy Plan/Recommendation Plan IV fluid hydration Lactulose 30 mL p.o. q.6 hours until diarrhea and then drop it down to 30 mL p.o. twice a day Patient has also been started on Xifaxan Patient is awaiting paracentesis and we will send fluid for analysis Vitamin K 10 mg IV to correct her coagulopathy Repeat labs in a.m. including CBC CMP PT INR hepatitis profile JORGE and ferritin Prognosis remains guarded Plan discussed with: Patient LINA DIAZ MD Oct 14, 2024 16:29
[2024-10-14] MEDS: phytonadione 10 MG in SODIUM CHL 0.9% 50 ML IV ONE (16:47)
[2024-10-14] MEDS: LACTULOSE 20Gm/30ML SOLN PO SCH (17:52)
--- NOTE | 2024-10-14 18:55 | ECG ---
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
[2024-10-14 19:25] LABS: Urine Bacteria None Seen /hpf (None Seen); Urine WBC None Seen /hpf (0 - 5)
[2024-10-14 19:40] LABS: Urine Blood Negative /uL (Negative); Urine Clarity Clear (Clear); Urine Color Light-Yellow (Yellow); Urine Hyaline Cast MOD /lpf (0 - 2); Urine Protein, UAD Negative (Negative); Urine Specific Gravity 1.011 (1.001-1.035); Urine Urobilinogen Normal (Negative)
[2024-10-14 20:38] VITALS: PULSE 98; RESP 12; O2SAT 100
[2024-10-14 21:57] LABS: COVID19 ANTIGEN SOFIA FIA NEGATIVE (NEGATIVE); Rapid Influenza A Negative (Negative); Rapid Influenza B Negative (Negative)
[2024-10-14] MEDS: rifAXIMin 550 MG TAB PO SCH (22:55)
[2024-10-14] MEDS: PANTOPRAZOLE 40 MG/10 ML VIAL INJ IV SCH (22:55)
[2024-10-15 07:15] LABS: Basophils # (auto) 0 10 ^3/uL (0-0.2); Basophils % (auto) 0.8 % (0.0-2.0); Eosinophils # (auto) 0 10 ^3/uL (0-0.8); Eosinophils % (auto) 0.2 % (0.0-7.0); Hematocrit 25.9 % (36.0-46.0); Hemoglobin 7.7 g/dL (12.2-16.2); Lymphocytes # (auto) 0.9 10 ^3/uL (0.4-5.4); Lymphocytes % (auto) 21.2 % (10.0-50.0); Mean Corpuscular Hemoglobin 24.2 pg (28.0-32.0); Mean Corpuscular Hgb Conc. 29.8 g/dL (32.0-36.0); Mean Corpuscular Volume 81.2 fL (80.0-100.0); Monocytes # (auto) 0.4 10 ^3/uL (0-1.3); Monocytes % (auto) 8.7 % (0.0-12.0); Neutrophils # (auto) 2.9 10 ^3/uL (1.6-8.6); Neutrophils % (auto) 69.1 % (37.0-80.0); Nucleated Red Blood Cells % 0.7 %; Platelet Count (auto) 84 10^3/uL (140-450); Red Blood Cells 3.19 10^6/uL (4.0-5.20); Red Cell Distribution Width 18.1 % (11.8-14.3); White Blood Cell 4.2 10^3/uL (4.4-10.8)
[2024-10-15 07:37] LABS: Alanine Aminotransferase 36 U/L (7-40); Alkaline Phosphatase 93 U/L (46-116); Anion Gap 12 (5-15); BUN/Creatinine Ratio 17.4 (10.0-20.0); Potassium 4.2 mmol/L (3.5-5.1)
[2024-10-15 07:38] LABS: Bilirubin, Total 0.9 mg/dL (0.2-1.0)
[2024-10-15 07:43] LABS: Albumin 2.4 g/dL (3.2-4.8); Aspartate Aminotransferase 58 U/L (13-40); Blood Urea Nitrogen 37 mg/dL (9-23); Carbon Dioxide 17 mmol/L (20-31); Chloride 121 mmol/L (98-107); Glucose 62 mg/dL (74-106); Sodium 150 mmol/L (136-145); Total Protein 5.3 g/dL (5.7-8.2)
[2024-10-15] MEDS: LACTULOSE 20Gm/30ML SOLN PO SCH ×2 (08:07→14:06)
[2024-10-15 08:25] VITALS: PULSE 101; RESP 12; O2SAT 100
--- NOTE | 2024-10-15 11:23 | DVHSR ---
APPROVED REPORT EXAM: Two-dimensional and M-mode echocardiogram with Doppler and color Doppler. Blood Pressure: 122/72 mmHg INDICATION eval for right heart failure elevated trop RISK FACTORS Height: 5'2, Weight: 99 DIMENSIONS LVDd3.6 (3.8-5.7cm)LA (2D)3.7 (1.9-4.0cm)Aortic Root3.2 (2.0-3.7cm) LVDs2.8 (2.5-4.0cm)LA (MM) (1.9-4.0cm)Aortic Cusp Exc1.7 (1.5-2.0cm) EF (%) 50.0 (55-70%)Rt. Atrium3.9 (1.9-4.0cm)Asc. Aorta3.6 cm IVSd1.1 (0.7-1.1cm)RV (D) (1.8-2.4cm) PWd1.0 (0.7-1.1cm) Mitral Valve MitralMitral Stenosis E wave0.49m/sMV Mean GR.mmHg A wave0.78m/sMV Peak GR.mmHg E/A ratio0.62D MVAcm2 DECEL [id number] 1/2 [place] Aortic Valve Aortic ValveAortic Stenosis V11.11m/[place] Mean GR.3mmHg V21.17m/[place] Peak GR.5mmHg LVOT Diameter2.2 (1.8-2.4cm)Doppler AVA3.60cm2 Pulmonic Valve V21.07m/s Tricuspid Valve TR Velocity2.38m/s [id number] Other Information Technically limited study due to pt confused unable to follow directions Conclusion lvef 65% LA markedly enlarged RV enlarged, normal function mild tricuspid regurg, not well seen however
[2024-10-15] MEDS: ACETAMINOPHEN 325 MG TAB PO PRN (12:07)
[2024-10-15] MEDS: ONDANSETRON HCL 4 MG/2 ML VIAL IV PRN (12:07)
[2024-10-15] MEDS: D5W 5% 1,000 ML IV SCH (12:09)
--- NOTE | 2024-10-15 12:40 | DVHINCON2 ---
Date of service: Oct 15, 2024 History of Present Illness History of Present Illness - EMS states pt has been having weakness for the past 2 days according to family - pt has been having nausea and vomiting in this time period and has been unable to keep anything down - pt is noted to be awake and alert in the ED and is alert and oriented x 1 only oriented to self name. - pt has history of liver cirrhosis and is noted to have abdominal distention with pt family telling EMS pt had paracentesis recently - pt noted to have lower extremity swelling and is known to not be complaint with Lasix. - pt unable to answer any further questions due to alerted mental status. Past Medical History Cirrhosis of the liver, end-stage liver disease with ascites, hepatic encephalopathy Past Surgical History: None Family History: Hypertension Smoke: No ALCOHOL: rare Drugs: None Lives: with Family Past Medical History reviewed Allergies: Coded Allergies: NO KNOWN ALLERGIES (Unverified , 10/14/24) Current Medications Current Medications Medications (Trade) Dose Ordered Sig/Leti Route PRN Reason Start Time Stop Time Status Last Admin Nitroglycerin (Ntrostat Sublingual) 0.4 mg Q5MINP PRN SL FOR CHEST PAIN 10/14/24 14:30 Morphine Sulfate 2 mg Q30M PRN IV FOR CHEST PAIN 10/14/24 14:30 Sodium Chloride 1,000 ml @ 100 mls/hr Q10H IV 10/14/24 14:30 10/15/24 11:43 DC 10/15/24 10:13 Lactulose 30 ml Q4HR PO 10/14/24 18:00 10/15/24 06:07 DC 10/15/24 04:02 Rifaximin (Xifaxan) 550 mg BID PO 10/14/24 22:00 10/15/24 10:03 Ondansetron HCl (Zofran) 4 mg Q4HPRN PRN IV NAUSEA / VOMITING 10/14/24 14:30 10/15/24 12:07 Acetaminophen (Tylenol Tablet) 650 mg Q4HP PRN PO PAIN SCALE 1-3 OR TEMP>100.4 10/14/24 14:30 10/15/24 12:07 Pantoprazole Sodium (Protonix) 40 mg BID IV 10/14/24 22:00 10/15/24 10:01 Lactulose 30 ml Q4H PO 10/15/24 08:00 10/15/24 11:43 DC 10/15/24 08:07 Lactulose 30 ml Q6H PO 10/15/24 14:00 Dextrose 1,000 ml @ 100 mls/hr Q10H IV 10/15/24 11:45 10/15/24 12:09 Review of Systems 10 pt ros otherwise negative Vital Signs Vital Signs Date Time Temp Pulse Resp B/P (MAP) Pulse Ox O2 Delivery O2 Flow Rate FiO2 10/15/24 09:30 98.0 101 11 102/61 (75) 100 98.0 10/15/24 08:25 Room Air* 0 21 Physical Exam nad s1 s2 rrr ctab +tender no edema Labs/Diagnostic Data Labs Test 10/15/24 06:24 10/14/24 20:24 10/14/24 19:05 10/14/24 14:48 Range/Units White Blood Count 4.2 #L 4.4-10.8 10^3/uL Red Blood Count 3.19 L 4.0-5.20 10^6/uL Hemoglobin 7.7 L 12.2-16.2 g/dL Hematocrit 25.9 L 36.0-46.0 % Mean Corpuscular Volume 81.2 80.0-100.0 fL Mean Corpuscular Hemoglobin 24.2 L 28.0-32.0 pg Mean Corpuscular Hemoglobin Concent 29.8 L 32.0-36.0 g/dL Red Cell Distribution Width 18.1 H 11.8-14.3 % Platelet Count 84 L 140-450 10^3/uL Mean Platelet Volume 8.4 6.9-10.8 fL Neutrophils (%) (Auto) 69.1 37.0-80.0 % Lymphocytes (%) (Auto) 21.2 10.0-50.0 % Monocytes (%) (Auto) 8.7 0.0-12.0 % Eosinophils (%) (Auto) 0.2 0.0-7.0 % Basophils (%) (Auto) 0.8 0.0-2.0 % Neutrophils # (Auto) 2.9 1.6-8.6 10 ^3/uL Lymphocytes # (Auto) 0.9 0.4-5.4 10 ^3/uL Monocytes # (Auto) 0.4 0-1.3 10 ^3/uL Eosinophils # (Auto) 0 0-0.8 10 ^3/uL Basophils # (Auto) 0 0-0.2 10 ^3/uL Nucleated Red Blood Cells 0.7 % Sodium Level 150 H 136-145 mmol/L Potassium Level 4.2 3.5-5.1 mmol/L Chloride Level 121 H 98-107 mmol/L Carbon Dioxide Level 17 L 20-31 mmol/L Anion Gap 12 5-15 Blood Urea Nitrogen 37 H 9-23 mg/dL Creatinine 2.13 H 0.550-1.02 mg/dL Glomerular Filtration Rate Calc 24 >90 mL/min BUN/Creatinine Ratio 17.4 10.0-20.0 Serum Glucose 62 L 74-106 mg/dL Lactic Acid Level 1.7 0.4-2.0 mmol/L Calcium Level 9.0 8.7-10.4 mg/dL Ferritin 35.4 10-291 ng/mL Total Bilirubin 0.9 0.2-1.0 mg/dL Aspartate Amino Transferase (AST) 58 H 13-40 U/L Alanine Aminotransferase (ALT) 36 7-40 U/L Alkaline Phosphatase 93 46-116 U/L Ammonia 61 H 11-32 umol/L Troponin I High Sensitivity 73 *H </=34 ng/L Total Protein 5.3 L 5.7-8.2 g/dL Albumin 2.4 L 3.2-4.8 g/dL Influenza Type A Antigen Negative Negative Influenza Type B Antigen Negative Negative SARS-CoV-2 Antigen (Rapid) Negative NEGATIVE Urine Color Light-yellow Yellow Urine Clarity Clear Clear Urine pH 5.0 5.0-9.0 Urine Specific [place] 1.011 1.001-1.035 Urine Protein Negative Negative Urine Ketones Negative Negative Urine Blood Negative Negative /uL Urine Nitrite Negative Negative Urine Bilirubin Negative Negative Urine Urobilinogen Normal Negative mg/dL Urine Leukocyte Esterase Negative Negative /uL Urine RBC None seen 0 - 4 /hpf Urine WBC None seen 0 - 5 /hpf Urine Squamous Epithelial Cells Few <5 /hpf Urine Bacteria None seen None Seen /hpf Urine Hyaline Casts Mod 0 - 2 /lpf Urine Glucose Normal Normal mg/dL Prothrombin Time 14.6 H 9.3-11.8 sec Prothrombin Time INR 1.41 H 0.9-1.15 Activated Partial Thromboplast Time 38.8 H 24.5-34.5 SEC Test 10/14/24 11:00 Range/Units Magnesium Level 2.6 1.6-2.6 mg/dL B-Type Natriuretic Peptide 128.70 0-100 pg/mL Assessment live failure ascites frailty hypotension elevated troponin Plan/Recommendation GI workup non cardiac cause of troponin rise normal lvef on echo diastolic dysfunction liver workup ongoing no further cv testing indicated Plan discussed with: Patient CHRISTIANO WORLEY MD Oct 15, 2024 12:40
--- NOTE | 2024-10-15 16:04 | DVHINCON2 ---
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 Nephrology consulted due to elevated creatinine level. Patient's baseline renal function is unknown to me. Patient is mildly lethargic and could not provide history. Allergies: Coded Allergies: NO KNOWN ALLERGIES (Unverified , 10/14/24) Current Medications Current Medications Medications (Trade) Dose Ordered Sig/Leti Route PRN Reason Start Time Stop Time Status Last Admin Lactulose 30 ml Q4HR PO 10/14/24 18:00 10/15/24 06:07 DC 10/15/24 04:02 Rifaximin (Xifaxan) 550 mg BID PO 10/14/24 22:00 10/15/24 10:03 Pantoprazole Sodium (Protonix) 40 mg BID IV 10/14/24 22:00 10/15/24 10:01 Lactulose 30 ml Q4H PO 10/15/24 08:00 10/15/24 11:43 DC 10/15/24 08:07 Lactulose 30 ml Q6H PO 10/15/24 14:00 10/15/24 14:06 Dextrose 1,000 ml @ 100 mls/hr Q10H IV 10/15/24 11:45 10/15/24 12:09 Review of Systems Abdominal distention decreased appetite H&P Exam Vital Signs/I&O Vital Sign Date Time Temp Pulse Resp B/P (MAP) Pulse Ox O2 Delivery O2 Flow Rate FiO2 10/15/24 15:27 83 12 104/77 (86) 97 10/15/24 09:30 98.0 98.0 10/15/24 08:25 Room Air* 0 21 Intake and Output 10/14/24 10/15/24 19:00 07:00 Intake Total 100 ml Balance 100 ml Intake IV Total 100 ml Physical Exam Elderly female Mildly lethargic but arousable Low blood pressure Mildly elevated JVD No peripheral edema Significantly distended abdomen with positive fluid wave Issa catheter minimal urinary output Jaundice Labs/Diagnostic Data Labs/Diagnostic Data Laboratory Tests Test 10/15/24 06:24 10/14/24 20:24 10/14/24 19:05 10/14/24 17:25 Range/Units White Blood Count 4.2 #L 4.4-10.8 10^3/uL Red Blood Count 3.19 L 4.0-5.20 10^6/uL Hemoglobin 7.7 L 12.2-16.2 g/dL Hematocrit 25.9 L 36.0-46.0 % Mean Corpuscular Volume 81.2 80.0-100.0 fL Mean Corpuscular Hemoglobin 24.2 L 28.0-32.0 pg Mean Corpuscular Hemoglobin Concent 29.8 L 32.0-36.0 g/dL Red Cell Distribution Width 18.1 H 11.8-14.3 % Platelet Count 84 L 140-450 10^3/uL Mean Platelet Volume 8.4 6.9-10.8 fL Neutrophils (%) (Auto) 69.1 37.0-80.0 % Lymphocytes (%) (Auto) 21.2 10.0-50.0 % Monocytes (%) (Auto) 8.7 0.0-12.0 % Eosinophils (%) (Auto) 0.2 0.0-7.0 % Basophils (%) (Auto) 0.8 0.0-2.0 % Neutrophils # (Auto) 2.9 1.6-8.6 10 ^3/uL Lymphocytes # (Auto) 0.9 0.4-5.4 10 ^3/uL Monocytes # (Auto) 0.4 0-1.3 10 ^3/uL Eosinophils # (Auto) 0 0-0.8 10 ^3/uL Basophils # (Auto) 0 0-0.2 10 ^3/uL Nucleated Red Blood Cells 0.7 % Sodium Level 150 H 136-145 mmol/L Potassium Level 4.2 3.5-5.1 mmol/L Chloride Level 121 H 98-107 mmol/L Carbon Dioxide Level 17 L 20-31 mmol/L Anion Gap 12 5-15 Blood Urea Nitrogen 37 H 9-23 mg/dL Creatinine 2.13 H 0.550-1.02 mg/dL Glomerular Filtration Rate Calc 24 >90 mL/min BUN/Creatinine Ratio 17.4 10.0-20.0 Serum Glucose 62 L 74-106 mg/dL Lactic Acid Level 1.7 0.4-2.0 mmol/L Calcium Level 9.0 8.7-10.4 mg/dL Ferritin 35.4 10-291 ng/mL Total Bilirubin 0.9 0.2-1.0 mg/dL Aspartate Amino Transferase (AST) 58 H 13-40 U/L Alanine Aminotransferase (ALT) 36 7-40 U/L Alkaline Phosphatase 93 46-116 U/L Ammonia 61 H 11-32 umol/L Troponin I High Sensitivity 73 *H 67 *H </=34 ng/L Total Protein 5.3 L 5.7-8.2 g/dL Albumin 2.4 L 3.2-4.8 g/dL Influenza Type A Antigen Negative Negative Influenza Type B Antigen Negative Negative SARS-CoV-2 Antigen (Rapid) Negative NEGATIVE Urine Color Light-yellow Yellow Urine Clarity Clear Clear Urine pH 5.0 5.0-9.0 Urine Specific [place] 1.011 1.001-1.035 Urine Protein Negative Negative Urine Ketones Negative Negative Urine Blood Negative Negative /uL Urine Nitrite Negative Negative Urine Bilirubin Negative Negative Urine Urobilinogen Normal Negative mg/dL Urine Leukocyte Esterase Negative Negative /uL Urine RBC None seen 0 - 4 /hpf Urine WBC None seen 0 - 5 /hpf Urine Squamous Epithelial Cells Few <5 /hpf Urine Bacteria None seen None Seen /hpf Urine Hyaline Casts Mod 0 - 2 /lpf Urine Glucose Normal Normal mg/dL Test 10/14/24 14:48 10/14/24 11:00 Range/Units Prothrombin Time 14.6 H 9.3-11.8 sec Prothrombin Time INR 1.41 H 0.9-1.15 Activated Partial Thromboplast Time 38.8 H 24.5-34.5 SEC Lactic Acid Level 1.7 1.7 0.4-2.0 mmol/L Ammonia 89 H 105 H 11-32 umol/L Troponin I High Sensitivity 64 *H 74 *H </=34 ng/L White Blood Count 3.0 L 4.4-10.8 10^3/uL Red Blood Count 3.34 L 4.0-5.20 10^6/uL Hemoglobin 8.0 L 12.2-16.2 g/dL Hematocrit 26.5 L 36.0-46.0 % Mean Corpuscular Volume 79.4 L 80.0-100.0 fL Mean Corpuscular Hemoglobin 24.0 L 28.0-32.0 pg Mean Corpuscular Hemoglobin Concent 30.3 L 32.0-36.0 g/dL Red Cell Distribution Width 17.5 H 11.8-14.3 % Platelet Count 74 L 140-450 10^3/uL Mean Platelet Volume 8.4 6.9-10.8 fL Neutrophils (%) (Auto) 70.4 37.0-80.0 % Lymphocytes (%) (Auto) 21.9 10.0-50.0 % Monocytes (%) (Auto) 6.3 0.0-12.0 % Eosinophils (%) (Auto) 0.1 0.0-7.0 % Basophils (%) (Auto) 1.3 0.0-2.0 % Neutrophils # (Auto) 2.1 1.6-8.6 10 ^3/uL Lymphocytes # (Auto) 0.7 0.4-5.4 10 ^3/uL Monocytes # (Auto) 0.2 0-1.3 10 ^3/uL Eosinophils # (Auto) 0 0-0.8 10 ^3/uL Basophils # (Auto) 0 0-0.2 10 ^3/uL Nucleated Red Blood Cells 0.7 % Sodium Level 146 H 136-145 mmol/L Potassium Level 4.4 3.5-5.1 mmol/L Chloride Level 118 H 98-107 mmol/L Carbon Dioxide Level 19 L 20-31 mmol/L Anion Gap 9 5-15 Blood Urea Nitrogen 44 H 9-23 mg/dL Creatinine 1.79 H 0.550-1.02 mg/dL Glomerular Filtration Rate Calc 30 >90 mL/min BUN/Creatinine Ratio 24.6 H 10.0-20.0 Serum Glucose 74 74-106 mg/dL Calcium Level 9.0 8.7-10.4 mg/dL Magnesium Level 2.6 1.6-2.6 mg/dL Total Bilirubin 0.8 0.2-1.0 mg/dL Aspartate Amino Transferase (AST) 66 H 13-40 U/L Alanine Aminotransferase (ALT) 36 7-40 U/L Alkaline Phosphatase 97 46-116 U/L B-Type Natriuretic Peptide 128.70 0-100 pg/mL Total Protein 5.2 L 5.7-8.2 g/dL Albumin 2.4 L 3.2-4.8 g/dL Assessment Acute kidney injury likely prerenal can not exclude hepatorenal syndrome No previous baseline to determine evidence of CKD at this time Cirrhosis due to liver disease with large volume ascites Anemia likely due to blood loss Thrombocytopenia Hepatic encephalopathy Hypoalbuminemia Recommend low-salt diet Avoid hypotension IV albumin Maintain mean arterial pressure greater than 65 Midodrine, octreotide, Paracentesis Strict Is&Os Monitor urinary output Iron replacement Gastroenterology No evidence of urinary obstruction Plan discussed with: Patient DEEPA SHANKS MD Oct 15, 2024 16:04
[2024-10-15] MEDS: ALBUMIN 25% 50 ML IV SCH (16:28)
--- NOTE | 2024-10-15 17:25 | DVHPN2 ---
Progress Note - Dictate Date Seen: Oct 15, 2024 Medical Necessity Reason Pt with a Central, PICC or Fol: No Subjective Comfortable in bed. No complaints. Ammonia level has improved. Evaluated by clinical laboratory aide. vital signs Vital Sign Date Time Temp Pulse Resp B/P (MAP) Pulse Ox O2 Delivery O2 Flow Rate FiO2 10/15/24 15:27 83 12 104/77 (86) 97 10/15/24 09:30 98.0 98.0 10/15/24 08:25 Room Air* 0 21 Total Intake and Output 10/14/24 10/14/24 10/15/24 15:00 23:00 07:00 Intake Total 100 ml Balance 100 ml medications Current Medications Medications Dose Ordered Sig/Leti Route Start Time Stop Time Status Last Admin Dose Admin Nitroglycerin 0.4 mg Q5MINP PRN SL 10/14/24 14:30 Morphine Sulfate 2 mg Q30M PRN IV 10/14/24 14:30 Rifaximin 550 mg BID PO 10/14/24 22:00 10/15/24 10:03 550 MG Ondansetron HCl 4 mg Q4HPRN PRN IV 10/14/24 14:30 10/15/24 12:07 4 MG Acetaminophen 650 mg Q4HP PRN PO 10/14/24 14:30 10/15/24 12:07 650 MG Pantoprazole Sodium 40 mg BID IV 10/14/24 22:00 10/15/24 10:01 40 MG Lactulose 30 ml Q6H PO 10/15/24 14:00 10/15/24 14:06 30 ML Albumin Human 50 ml @ 100 mls/hr Q8H IV 10/15/24 16:15 10/16/24 08:44 10/15/24 16:28 100 MLS/HR Midodrine 2.5 mg TID@0600,1200,1800 PO 10/15/24 18:00 objective Abdomen soft positive bowel sounds nontender. Extremities no edema. Heart regular rate and rhythm S1 plus S2. Lungs without rales wheezes. laboratory and microbiology Laboratory Tests 10/15/24 06:24 Test 10/15/24 06:24 Range/Units Serum Glucose 62 L 74-106 mg/dL Assessment/Plan Advance diet as tolerated. Physical therapy evaluation. Continue rest of supportive care and treatment. Follow clinical management per clinical course. Still waiting for paracentesis. Problems(with codes): (1) Liver cirrhosis (2) Thrombocytopenia (3) Hyperammonemia (4) Ascites (5) Hepatic encephalopathy Plan discussed with: Other ABHISHEK FINE MD Oct 15, 2024 17:25
[2024-10-15] MEDS: MIDODRINE HCL 10 MG TAB PO SCH (17:31)
[2024-10-15 19:43] VITALS: PULSE 80; RESP 14; O2SAT 99
--- NOTE | 2024-10-15 22:14 | DVHPN2 ---
Progress Note - Dictate Date Seen: Oct 15, 2024 Medical Necessity Reason Pt with a Central, PICC or Fol: No Subjective Patient seen at bedside in ER bed 18 She is tolerating clear liquid diet Patient is more awake alert however she is still oriented x2 There was no GI bleeding reported vital signs Vital Sign Date Time Temp Pulse Resp B/P (MAP) Pulse Ox O2 Delivery O2 Flow Rate FiO2 10/15/24 21:00 100 13 110/68 (82) 100 10/15/24 19:43 Room Air* 0 21 10/15/24 19:43 98.0 98.0 Total Intake and Output 10/14/24 10/14/24 10/15/24 15:00 23:00 07:00 Intake Total 100 ml Balance 100 ml medications Current Medications Medications Dose Ordered Sig/Leti Route Start Time Stop Time Status Last Admin Dose Admin Nitroglycerin 0.4 mg Q5MINP PRN SL 10/14/24 14:30 Morphine Sulfate 2 mg Q30M PRN IV 10/14/24 14:30 Rifaximin 550 mg BID PO 10/14/24 22:00 10/15/24 10:03 550 MG Ondansetron HCl 4 mg Q4HPRN PRN IV 10/14/24 14:30 10/15/24 12:07 4 MG Acetaminophen 650 mg Q4HP PRN PO 10/14/24 14:30 10/15/24 12:07 650 MG Pantoprazole Sodium 40 mg BID IV 10/14/24 22:00 10/15/24 10:01 40 MG Lactulose 30 ml Q6H PO 10/15/24 14:00 10/15/24 20:15 30 ML Albumin Human 50 ml @ 100 mls/hr Q8H IV 10/15/24 16:15 10/16/24 08:44 10/15/24 16:28 100 MLS/HR Midodrine 2.5 mg TID@0600,1200,1800 PO 10/15/24 18:00 10/15/24 17:31 2.5 MG objective Elderly thin female in bed comfortable alert awake oriented to self only. HEENT notable for poor dentition. Pupils equal round react to light. Neck supple no JVD. Lungs fair air movement chest tube will expansion. No wheezing noted Heart regular rate and rhythm S1 plus S2 without audible murmurs. Abdomen is distended. Tympanic to palpation. Nontender. Positive bowel sounds. Extremities trace edema around the ankles. Chronic venous stasis noted around the ankles/calf region in lower extremities. No focal neurological deficits noted laboratory and microbiology Laboratory Tests 10/15/24 06:24 Test 10/15/24 06:24 Range/Units Serum Glucose 62 L 74-106 mg/dL Problems(with codes): (1) Hyperammonemia (2) Thrombocytopenia (3) Liver cirrhosis (4) Ascites (5) Anemia (6) Hepatic encephalopathy Prognosis Plan MELD score is 18 points, low mortality risk IV fluid hydration Lactulose 30 mL p.o. q.6 hours until diarrhea and then drop it down to 30 mL p.o. twice a day Patient has also been started on Xifaxan Patient is awaiting paracentesis and we will send fluid for analysis Vitamin K 10 mg IV to correct her coagulopathy Repeat labs in a.m. including CBC CMP PT INR hepatitis profile JORGE and ferritin Prognosis remains guarded Plan discussed with: Patient, Other (ER Nurse) LINA DIAZ MD Oct 15, 2024 22:14
[2024-10-15 22:50] VITALS: BP 111/64; PULSE 84; RESP 16; TEMP 97.9; O2SAT 98
[2024-10-16] VITALS (8 sets, daily range): BP systolic 94–101; BP diastolic 44–62; PULSE 57–86; RESP 16–19; TEMP 97.6–98.3; O2SAT 95–99
[2024-10-16 06:09] LABS: Calcium 9.1 mg/dL (8.7-10.4); Potassium 3.8 mmol/L (3.5-5.1)
[2024-10-16 06:10] LABS: Anion Gap 11 (5-15)
[2024-10-16 06:15] LABS: BUN/Creatinine Ratio 16.4 (10.0-20.0)
[2024-10-16 06:17] LABS: Blood Urea Nitrogen 40 mg/dL (9-23); Carbon Dioxide 17 mmol/L (20-31); Chloride 121 mmol/L (98-107); Glucose 65 mg/dL (74-106); Sodium 149 mmol/L (136-145)
[2024-10-16 06:21] LABS: % Iron Saturation 4.8 % (15-50)
--- NOTE | 2024-10-16 13:47 | DVHPN2 ---
Progress Note Date Seen: Oct 16, 2024 Medical Necessity Reason Pt with a Central, PICC or Fol: Yes The following are medically ne: Issa Catheter Subjective Patient reports: Other Review of Systems: GI:Abnormal Objective vital signs Vital Sign Date Time Temp Pulse Resp B/P (MAP) Pulse Ox O2 Delivery O2 Flow Rate FiO2 10/16/24 12:33 98.1 86 17 101/44 (63) 95 98.1 10/16/24 07:50 Room Air* 0 21 Total Intake and Output 10/15/24 10/15/24 10/16/24 15:00 23:00 07:00 Intake Total 800 ml 150 ml 240 ml Output Total 350 ml Balance 800 ml 150 ml -110 ml medications Current Medications Medications Dose Ordered Sig/Leti Route Start Time Stop Time Status Last Admin Dose Admin Nitroglycerin 0.4 mg Q5MINP PRN SL 10/14/24 14:30 Morphine Sulfate 2 mg Q30M PRN IV 10/14/24 14:30 Rifaximin 550 mg BID PO 10/14/24 22:00 10/16/24 09:03 550 MG Ondansetron HCl 4 mg Q4HPRN PRN IV 10/14/24 14:30 10/15/24 12:07 4 MG Acetaminophen 650 mg Q4HP PRN PO 10/14/24 14:30 10/15/24 12:07 650 MG Pantoprazole Sodium 40 mg BID IV 10/14/24 22:00 10/16/24 09:03 40 MG Midodrine 2.5 mg TID@0600,1200,1800 PO 10/15/24 18:00 10/16/24 12:03 2.5 MG Lactulose 30 ml Q8H PO 10/16/24 16:00 UNV Examination: GENERAL:Abnormal, CVS:Abnormal, ABDOMEN:Abnormal, SKIN:Abnormal laboratory and microbiology Laboratory Tests 10/16/24 05:01 10/15/24 06:24 Test 10/16/24 05:01 Range/Units Serum Glucose 65 L 74-106 mg/dL Microbiology Date/Time Source Procedure Growth Status 10/14/24 19:05 Urine - Midstream Clean Catch Urine Culture - Preliminary Resulted Problem List/Assessment/Plan Problem List/Assessment/Plan Acute kidney injury likely prerenal can not exclude hepatorenal syndrome No previous baseline to determine evidence of CKD at this time Cirrhosis due to liver disease with large volume ascites Anemia likely due to blood loss Thrombocytopenia Hepatic encephalopathy Hypoalbuminemia Recommend low-salt diet Avoid hypotension IV albumin completed Maintain mean arterial pressure greater than 65 Midodrine, octreotide, Paracentesis Strict Is&Os Monitor urinary output Iron replacement IV IVF Gastroenterology No evidence of urinary obstruction Plan discussed with: Patient My Orders My Orders Orders - DEEPA SHANKS MD Procedure Category Date Status Time Midodrine Tablet PHA 10/15/24 In Process (Proamatine Tablet) 18:00 DEEPA SHANKS MD Oct 16, 2024 13:47
--- NOTE | 2024-10-16 15:24 | DVHPN2 ---
Progress Note - Dictate Date Seen: Oct 16, 2024 Medical Necessity Reason Pt with a Central, PICC or Fol: Yes The following are medically ne: Issa Catheter Subjective Comfortable in bed. No complaints. Patient's granddaughters are at bedside. Ammonia level is normalized. vital signs Vital Sign Date Time Temp Pulse Resp B/P (MAP) Pulse Ox O2 Delivery O2 Flow Rate FiO2 10/16/24 12:33 98.1 86 17 101/44 (63) 95 98.1 10/16/24 07:50 Room Air* 0 21 Total Intake and Output 10/15/24 10/15/24 10/16/24 15:00 23:00 07:00 Intake Total 800 ml 150 ml 240 ml Output Total 350 ml Balance 800 ml 150 ml -110 ml medications Current Medications Medications Dose Ordered Sig/Leti Route Start Time Stop Time Status Last Admin Dose Admin Nitroglycerin 0.4 mg Q5MINP PRN SL 10/14/24 14:30 Morphine Sulfate 2 mg Q30M PRN IV 10/14/24 14:30 Rifaximin 550 mg BID PO 10/14/24 22:00 10/16/24 09:03 550 MG Ondansetron HCl 4 mg Q4HPRN PRN IV 10/14/24 14:30 10/15/24 12:07 4 MG Acetaminophen 650 mg Q4HP PRN PO 10/14/24 14:30 10/15/24 12:07 650 MG Pantoprazole Sodium 40 mg BID IV 10/14/24 22:00 10/16/24 09:03 40 MG Midodrine 2.5 mg TID@0600,1200,1800 PO 10/15/24 18:00 10/16/24 12:03 2.5 MG Lactulose 30 ml Q8H PO 10/16/24 16:00 Iron Sucrose 110 ml @ 110 mls/hr DAILY@1200 IV 10/17/24 12:00 10/21/24 12:59 objective Alert and awake knows her name. HEENT notable for poor dentition. Pupils equal round react to light. Abdomen soft positive bowel sounds nontender. Extremities no edema. Heart regular rate and rhythm S1 plus S2. Lungs without rales wheezes. laboratory and microbiology Laboratory Tests 10/16/24 05:01 10/15/24 06:24 Test 10/16/24 05:01 Range/Units Serum Glucose 65 L 74-106 mg/dL Assessment/Plan Advance diet as tolerated. Physical therapy evaluation. Proceed with paracentesis hopefully will done tomorrow. No interventional radiologist or GI available for paracentesis over the weekend. Cut down lactulose to twice a day. Continue rest of supportive care and treatment. Further management for clinical course and recommendations of the consultants. Discussed with the the patient's/granddaughters as well as nurse regarding care plan at bedside. Problems(with codes): (1) Hepatic encephalopathy (2) Anemia (3) Ascites (4) Liver cirrhosis (5) Thrombocytopenia (6) Hyperammonemia Plan discussed with: Patient, Other ABHISHEK FINE MD Oct 16, 2024 15:24
[2024-10-16] MEDS: SOD CHL 0.45% 1,000 ML IV ONE (16:16)
[2024-10-16] MEDS: LACTULOSE 20Gm/30ML SOLN PO SCH (16:17)
--- NOTE | 2024-10-16 21:30 | DVHPN2 ---
Progress Note - Dictate Date Seen: Oct 16, 2024 Medical Necessity Reason Pt with a Central, PICC or Fol: Yes The following are medically ne: Issa Catheter Subjective Patient is clinically improving Awake and alert Tolerating diet Ammonia has normalized vital signs Vital Sign Date Time Temp Pulse Resp B/P (MAP) Pulse Ox O2 Delivery O2 Flow Rate FiO2 10/16/24 21:00 98.0 74 19 97/55 (69) 98 98.0 10/16/24 20:00 Room Air* 0 21 Total Intake and Output 10/15/24 10/15/24 10/16/24 15:00 23:00 07:00 Intake Total 800 ml 150 ml 240 ml Output Total 350 ml Balance 800 ml 150 ml -110 ml medications Current Medications Medications Dose Ordered Sig/Leti Route Start Time Stop Time Status Last Admin Dose Admin Nitroglycerin 0.4 mg Q5MINP PRN SL 10/14/24 14:30 Morphine Sulfate 2 mg Q30M PRN IV 10/14/24 14:30 Rifaximin 550 mg BID PO 10/14/24 22:00 10/16/24 09:03 550 MG Ondansetron HCl 4 mg Q4HPRN PRN IV 10/14/24 14:30 10/15/24 12:07 4 MG Acetaminophen 650 mg Q4HP PRN PO 10/14/24 14:30 10/15/24 12:07 650 MG Pantoprazole Sodium 40 mg BID IV 10/14/24 22:00 10/16/24 09:03 40 MG Midodrine 2.5 mg TID@0600,1200,1800 PO 10/15/24 18:00 10/16/24 18:58 2.5 MG Lactulose 30 ml Q8H PO 10/16/24 16:00 10/16/24 16:17 30 ML Iron Sucrose 110 ml @ 110 mls/hr DAILY@1200 IV 10/17/24 12:00 10/21/24 12:59 objective Elderly thin female in bed comfortable alert awake oriented to self only. HEENT notable for poor dentition. Pupils equal round react to light. Neck supple no JVD. Lungs fair air movement chest tube will expansion. No wheezing noted Heart regular rate and rhythm S1 plus S2 without audible murmurs. Abdomen is distended. Tympanic to palpation. Nontender. Positive bowel sounds. Extremities trace edema around the ankles. Chronic venous stasis noted around the ankles/calf region in lower extremities. No focal neurological deficits noted laboratory and microbiology Laboratory Tests 10/16/24 05:01 10/15/24 06:24 Test 10/16/24 05:01 Range/Units Serum Glucose 65 L 74-106 mg/dL Problems(with codes): (1) Hyperammonemia (2) Thrombocytopenia (3) Liver cirrhosis (4) Ascites (5) Anemia (6) Hepatic encephalopathy Prognosis Plan Waiting paracentesis and fluid analysis Discharge planning after above Outpatient follow up with GI Services for further monitoring of her chronic liver disease MELD score is 18 points, low mortality risk IV fluid hydration Lactulose 30 mL p.o. twice a day Patient has also been started on Xifaxan Vitamin K 10 mg IV was given to correct her coagulopathy Ferritin is normal, hemoglobin is down to 7.7 Prognosis remains guarded Plan discussed with: Patient, Other (None) LINA DIAZ MD Oct 16, 2024 21:29
[2024-10-17] VITALS (13 sets, daily range): BP systolic 83–119; BP diastolic 43–80; PULSE 52–83; RESP 14–19; TEMP 94.3–98.1; O2SAT 65–99
[2024-10-17 09:29] LABS: Hepatitis B Surface Antigen Negative (Negative)
[2024-10-17 09:35] LABS: Hepatitis B Core Total AB Negative (Negative)
[2024-10-17 09:46] LABS: Basophils # (auto) 0 10 ^3/uL (0-0.2); Basophils % (auto) 1.1 % (0.0-2.0); Eosinophils # (auto) 0 10 ^3/uL (0-0.8); Eosinophils % (auto) 0.3 % (0.0-7.0); Hematocrit 23.2 % (36.0-46.0); Lymphocytes # (auto) 0.5 10 ^3/uL (0.4-5.4); Lymphocytes % (auto) 21.6 % (10.0-50.0); Mean Corpuscular Hemoglobin 24.2 pg (28.0-32.0); Mean Corpuscular Hgb Conc. 29.9 g/dL (32.0-36.0); Mean Corpuscular Volume 80.9 fL (80.0-100.0); Monocytes # (auto) 0.2 10 ^3/uL (0-1.3); Monocytes % (auto) 6.9 % (0.0-12.0); Neutrophils # (auto) 1.6 10 ^3/uL (1.6-8.6); Neutrophils % (auto) 70.1 % (37.0-80.0); Nucleated Red Blood Cells % 0.3 %; Platelet Count (auto) 55 10^3/uL (140-450); Red Blood Cells 2.87 10^6/uL (4.0-5.20); Red Cell Distribution Width 17.7 % (11.8-14.3); White Blood Cell 2.3 10^3/uL (4.4-10.8)
[2024-10-17 09:55] LABS: Hemoglobin 6.9 g/dL (12.2-16.2)
[2024-10-17 09:56] LABS: Hepatitis C Antibody Negative (Negative)
[2024-10-17 10:10] LABS: Alanine Aminotransferase 29 U/L (7-40); Alkaline Phosphatase 79 U/L (46-116); Anion Gap 10 (5-15); Glucose 75 mg/dL (74-106)
[2024-10-17 10:11] LABS: Bilirubin, Total 0.7 mg/dL (0.2-1.0)
[2024-10-17 10:28] LABS: INR 1.45 (0.9-1.15); Partial Thromboplastin Time 46.5 SEC (24.5-34.5)
[2024-10-17 10:47] LABS: Albumin 2.3 g/dL (3.2-4.8); Aspartate Aminotransferase 65 U/L (13-40); BUN/Creatinine Ratio 14.3 (10.0-20.0); Blood Urea Nitrogen 37 mg/dL (9-23); Calcium 8.7 mg/dL (8.7-10.4); Carbon Dioxide 17 mmol/L (20-31); Chloride 120 mmol/L (98-107); Potassium 3.3 mmol/L (3.5-5.1); Sodium 147 mmol/L (136-145); Total Protein 4.7 g/dL (5.7-8.2)
[2024-10-17] MEDS: MIDODRINE HCL 10 MG TAB PO SCH (11:54)
[2024-10-17] MEDS: IRON SUCROSE COMPLEX 110 ML IV SCH (11:54)
[2024-10-17 12:33] LABS: Hepatitis A Total Antibody Positive (Negative); Hepatitis B Surface Antibody Negative (Negative); Hepatitis B Surface Antigen Negative (Negative); Hepatitis C Antibody Negative (Negative)
--- NOTE | 2024-10-17 12:37 | DVHPN2 ---
Progress Note Date Seen: Oct 17, 2024 Medical Necessity Reason Pt with a Central, PICC or Fol: Yes The following are medically ne: Issa Catheter Subjective Patient reports: No new complaints Other Systems: Patient seen and examined by myself on follow-up today Objective vital signs Vital Sign Date Time Temp Pulse Resp B/P (MAP) Pulse Ox O2 Delivery O2 Flow Rate FiO2 10/17/24 09:00 97.7 77 16 90/49 (63) 98 97.7 10/16/24 20:00 Room Air* 0 21 Total Intake and Output 10/16/24 10/16/24 10/17/24 15:00 23:00 07:00 Intake Total 50 ml 360 ml 1260 ml Output Total 200 ml 250 ml Balance 50 ml 160 ml 1010 ml medications Current Medications Medications Dose Ordered Sig/Leti Route Start Time Stop Time Status Last Admin Dose Admin Nitroglycerin 0.4 mg Q5MINP PRN SL 10/14/24 14:30 Morphine Sulfate 2 mg Q30M PRN IV 10/14/24 14:30 Rifaximin 550 mg BID PO 10/14/24 22:00 10/17/24 09:26 550 MG Ondansetron HCl 4 mg Q4HPRN PRN IV 10/14/24 14:30 10/15/24 12:07 4 MG Acetaminophen 650 mg Q4HP PRN PO 10/14/24 14:30 10/15/24 12:07 650 MG Pantoprazole Sodium 40 mg BID IV 10/14/24 22:00 10/17/24 09:19 40 MG Lactulose 30 ml Q8H PO 10/16/24 16:00 10/17/24 09:19 30 ML Iron Sucrose 110 ml @ 110 mls/hr DAILY@1200 IV 10/17/24 12:00 10/21/24 12:59 10/17/24 11:54 110 MLS/HR Midodrine 10 mg TID@0600,1200,1800 PO 10/17/24 10:45 10/17/24 11:54 10 MG Octreotide Acetate 100 mcg TID SUBCUT 10/17/24 14:00 Examination: LUNGS:Normal, CVS:Normal, MSK:Normal laboratory and microbiology Laboratory Tests 10/17/24 09:36 Test 10/17/24 09:36 Range/Units Serum Glucose 75 74-106 mg/dL Microbiology Date/Time Source Procedure Growth Status 10/14/24 19:05 Urine - Midstream Clean Catch Urine Culture - Preliminary Resulted Problem List/Assessment/Plan Problem List/Assessment/Plan Acute kidney injury likely prerenal can not exclude hepatorenal syndrome Cirrhosis due to liver disease with large volume ascites Anemia likely due to blood loss Thrombocytopenia Hepatic encephalopathy Hypoalbuminemia Hyponatremia due to dehydration Recommendations IV fluid half NS at 100 cc/hour Octreotide Midodrine Avoid hypotension IV albumin completed Maintain mean arterial pressure greater than 65 Midodrine, octreotide, Paracentesis Strict Is&Os Continue to follow up Plan discussed with: Patient My Orders My Orders Orders - ZAINAB QUIJANO MD Procedure Category Date Status Time Midodrine Tablet PHA 10/17/24 In Process (Proamatine Tablet) 10:45 Octreotide Acetate PHA 10/17/24 In Process (Sandostatin) 14:00 Urine Sodium LAB 10/17/24 Logged 10:40 Urine Creatinine LAB 10/17/24 Logged 10:40 1/2 Ns PHA 10/17/24 Verified 12:45 ZAINAB QUIJANO MD Oct 17, 2024 12:37
--- NOTE | 2024-10-17 12:42 | DVH ---
US PARACENTESIS, HISTORY: ASCITES PROCEDURE: Informed consent was obtained. The patient was placed in supine position. A limited locali zation ultrasound of the abdomen was obtained, and the skin site over the largest pocket of fluid was marked and entry site was prepped with chlorhexidine which was allowed to dry and draped in the usua l sterile fashion. Time out was performed. Following administration of 1% lidocaine local anesthetic, a 5 [place] centesis needle catheter was percutaneously inserted into the peritoneal collection until fluid was aspirated. The catheter was advanced into the fluid collection and the needle removed. Abo ut 7100 cc of fluid was aspirated . The catheter was then removed and a sterile dressing applied. No immediate complication was identified. FINDINGS: Limited ultrasound imaging demonstrates moderate ascites. Aspirated fluid was clear and ser ous. IMPRESSION: US-guided paracentesis with 7.1L removed.
[2024-10-17 12:45] LABS: Body Fluid Polymorphonuclear 3 % (0-25); Body Fluid Red Blood Cells 173 CUMM (0-2000); Body Fluid White Blood Cells 214 CUMM (0-200)
[2024-10-17] MEDS: OCTREOTIDE ACETATE 100 MCG/ML VL SUBCUT SCH (13:33)
[2024-10-17] MEDS: SOD CHL 0.45% 1,000 ML IV SCH (13:34)
--- NOTE | 2024-10-17 15:39 | DVHPN2 ---
Progress Note - Dictate Date Seen: Oct 17, 2024 Medical Necessity Reason Pt with a Central, PICC or Fol: Yes The following are medically ne: Issa Catheter Subjective Comfortable in bed. No complaints. Underwent paracentesis in the apparently 7 L of fluid removed. Patient is mildly hypotensive post removal. vital signs Vital Sign Date Time Temp Pulse Resp B/P (MAP) Pulse Ox O2 Delivery O2 Flow Rate FiO2 10/17/24 12:30 97.8 62 16 83/43 (56) 99 97.8 10/17/24 08:00 Room Air* 0 21 Total Intake and Output 10/16/24 10/16/24 10/17/24 15:00 23:00 07:00 Intake Total 50 ml 360 ml 1260 ml Output Total 200 ml 250 ml Balance 50 ml 160 ml 1010 ml medications Current Medications Medications Dose Ordered Sig/Leti Route Start Time Stop Time Status Last Admin Dose Admin Nitroglycerin 0.4 mg Q5MINP PRN SL 10/14/24 14:30 Morphine Sulfate 2 mg Q30M PRN IV 10/14/24 14:30 Rifaximin 550 mg BID PO 10/14/24 22:00 10/17/24 09:26 550 MG Ondansetron HCl 4 mg Q4HPRN PRN IV 10/14/24 14:30 10/15/24 12:07 4 MG Acetaminophen 650 mg Q4HP PRN PO 10/14/24 14:30 10/15/24 12:07 650 MG Pantoprazole Sodium 40 mg BID IV 10/14/24 22:00 10/17/24 09:19 40 MG Lactulose 30 ml Q8H PO 10/16/24 16:00 10/17/24 09:19 30 ML Iron Sucrose 110 ml @ 110 mls/hr DAILY@1200 IV 10/17/24 12:00 10/21/24 12:59 10/17/24 11:54 110 MLS/HR Midodrine 10 mg TID@0600,1200,1800 PO 10/17/24 10:45 10/17/24 11:54 10 MG Octreotide Acetate 100 mcg TID SUBCUT 10/17/24 14:00 10/17/24 13:33 100 MCG Sodium Chloride 1,000 ml @ 100 mls/hr Q10H IV 10/17/24 12:45 10/17/24 13:34 100 MLS/HR objective Alert and awake knows her name. HEENT notable for poor dentition. Pupils equal round react to light. Abdomen soft positive bowel sounds nontender. Extremities no edema. Heart regular rate and rhythm S1 plus S2. Lungs without rales wheezes. laboratory and microbiology Laboratory Tests 10/17/24 09:36 Test 10/17/24 09:36 Range/Units Serum Glucose 75 74-106 mg/dL Assessment/Plan Given the low blood pressure we will transfuse 1 unit of blood and IV albumin. Continue physical therapy evaluation. Social Service consultation for discharge planning. Otherwise continue rest of supportive care and treatment further clinical management per clinical course. Discussed with the nurse regarding care plan Problems(with codes): (1) Hepatic encephalopathy (2) Anemia (3) Ascites (4) Liver cirrhosis (5) Thrombocytopenia (6) Hyperammonemia Plan discussed with: Other ABHISHEK FINE MD Oct 17, 2024 15:39
[2024-10-17] MEDS: ALBUMIN 25% 100 ML IV SCH (18:55)
[2024-10-17 19:34] LABS: Urine Bacteria FEW /hpf (None Seen); Urine Blood 3+ /uL (Negative); Urine Clarity Turbid (Clear); Urine Color Light-Orange (Yellow); Urine Hyaline Cast MOD /lpf (0 - 2); Urine Protein, UAD 1+ (Negative); Urine Urobilinogen Normal (Negative); Urine WBC 217 /hpf (0 - 5); Urine WBC Clumps PRESENT /hpf (None Seen)
[2024-10-17 19:42] LABS: Creatinine, Urine 164.31 mg/dL (30.0-125.0)
[2024-10-18] VITALS (63 sets, daily range): BP systolic 77–159; BP diastolic 44–98; PULSE 55–99; RESP 7–16; TEMP 97.1–99.2; O2SAT 94–99
[2024-10-18 06:00] LABS: Hematocrit 25.3 % (36.0-46.0); Mean Corpuscular Hemoglobin 25.9 pg (28.0-32.0); Mean Corpuscular Hgb Conc. 31.5 g/dL (32.0-36.0); Mean Corpuscular Volume 82.1 fL (80.0-100.0); Platelet Count (auto) 46 10^3/uL (140-450); Red Blood Cells 3.08 10^6/uL (4.0-5.20); Red Cell Distribution Width 18.2 % (11.8-14.3); White Blood Cell 2.8 10^3/uL (4.4-10.8)
[2024-10-18 06:04] LABS: Anion Gap 13 (5-15); Potassium 3.7 mmol/L (3.5-5.1)
[2024-10-18 06:05] LABS: Calcium 8.8 mg/dL (8.7-10.4)
[2024-10-18 06:10] LABS: BUN/Creatinine Ratio 13.6 (10.0-20.0); Glucose 76 mg/dL (74-106)
[2024-10-18 06:15] LABS: Blood Urea Nitrogen 33 mg/dL (9-23); Carbon Dioxide 16 mmol/L (20-31); Chloride 119 mmol/L (98-107); Sodium 148 mmol/L (136-145)
[2024-10-18 06:41] LABS: Band Neutrophils % (manual) 0; Basophils % (manual) 0 (0.0-2.0); Blast Cells 0; Metamyelocytes % 0; Promyelocytes % 0; Reactive Lymphocytes 0
[2024-10-18 09:15] LABS: Eosinophils % (manual) 1 (0-7); Lymphocytes % (manual) 14 (10.0-50.0); Monocytes % (manual) 7 (0-12); Myelocytes % 1; Platelet Estimate Decreased
[2024-10-18 09:16] LABS: Ovalocytes FEW
--- NOTE | 2024-10-18 10:03 | DVH ---
EXAM: MRI BRAIN HEAD WO CONTRAST HISTORY: RULE OUT STROKE COMPARISON: CT HEAD WITHOUT CONTRAST on DOS: 10/14/24 TECHNIQUE: MRI was performed utilizing multiple appropriate imaging planes and pulse sequences. FINDINGS: SUPRATENTORIAL REGION: No evidence for acute ischemia or intracranial hemorrhage. Scattered ill-defi sandra FLAIR hyperintensities are noted within the bilateral periventricular region, garcia radiata and subcortical white matter. POSTERIOR FOSSA: Unremarkable. BRAINSTEM: Unremarkable. SELLAR/SUPRASELLAR REGION: Unremarkable. VENTRICLES, CISTERNS, SULCI: Age-appropriate. ORBITS: Unremarkable. PARANASAL SINUSES: Mild diffuse paranasal sinus mucosal thickening reflecting mild chronic sinusitis . MASTOID AIR CELLS: Unremarkable. VASCULATURE: Unremarkable. BONES/ SOFT TISSUES: Unremarkable. OTHER: A 1.4 x 1.1 cm septated cystic extra-axial structure noted in the region of confluence of the left transverse and sigmoid dural venous sinuses. IMPRESSION: 1. No acute intracranial process identified. Wall 2. Moderate chronic microvascular ischemic changes. 3. A 1.4 cm septated extra-axial cystic lesion in the left parietal region at the confluence of the t ransverse and sigmoid dural venous sinuses most likely an arachnoid cyst or granulation tissue. Evalu ation is limited without IV contrast. 4. Mild chronic paranasal sinusitis.
--- NOTE | 2024-10-18 10:08 | DVHINCON2 ---
Date of service: Oct 17, 2024 Referring Physician Miguelangel Zamora MD Reason for Consultation Shortness of breath, paracentesis. History of Present Illness A 74-year-old woman w/ past medical history of liver cirrhosis, end-stage liver disease with ascites, and hepatic encephalopathy who presented to the ED via EMS on 10/14/24 with chief complaint of altered mental status along with 2-day history of weakness, nausea, vomiting and inability to keep anything down. History is limited as patient was somewhat altered; awake, alert and oriented x1 (only to self). Patient was noted to have abdominal distention, per family she is s/p recent paracentesis. Patient also with SOB and bilateral lower extremity swelling (known to be noncompliant with Lasix). CXR was notable for pulmonary congestion. Patient was admitted for further care and pulmonary consultation is requested for evaluation and management d/t the above findings. Review of Systems: 14-point review of systems negative unless otherwise noted above. Past Medical History: Liver cirrhosis, end-stage liver disease with ascites, and hepatic encephalopathy Past Surgical History: Paracentesis. Medications: Reviewed. Allergies: No known drug allergies. Family History: Hypertension, Alzheimer's disease, CVA. Social History: Nonsmoker. Rare alcohol use. No illicit drug use. Family History: Alzheimer's disease Cerebrovascular accident (CVA) G8 SISTER G8 SISTER Allergies: Coded Allergies: NO KNOWN ALLERGIES (Unverified , 10/14/24) Current Medications Current Medications Medications (Trade) Dose Ordered Sig/Leti Route PRN Reason Start Time Stop Time Status Last Admin Iron Sucrose 110 ml @ 110 mls/hr DAILY@1200 IV 10/17/24 12:00 10/21/24 12:59 10/17/24 11:54 Midodrine (Proamatine Tablet) 10 mg TID@0600,1200,1800 PO 10/17/24 10:45 10/18/24 05:54 Octreotide Acetate (SandoSTATIN) 100 mcg TID SUBCUT 10/17/24 14:00 10/18/24 06:26 Sodium Chloride 1,000 ml @ 100 mls/hr Q10H IV 10/17/24 12:45 10/17/24 22:48 Albumin Human 100 ml @ 100 mls/hr Q8H IV 10/17/24 15:45 10/18/24 08:44 DC 10/18/24 08:01 Vital Signs Vital Signs Date Time Temp Pulse Resp B/P (MAP) Pulse Ox O2 Delivery O2 Flow Rate FiO2 10/18/24 09:00 98.4 90 14 90/50 (63) 95 98.4 10/17/24 20:00 Room Air* 0 21 Physical Exam Gen.: Patient lying in bed in no apparent distress. Breathing on room air. Head: Normocephalic, atraumatic. Eyes: EOMI/PERRLA. Ears: Normal hearing. Normal anatomy. Neck/trachea: Trachea midline, supple. Nose: Normal external anatomy. Mouth: Moist mucous membranes. Chest: Decreased air entry bilaterally. No wheezing or rhonchi. Cardiovascular: Positive S1, positive S2. Regular rate and rhythm. Abdomen: Positive bowel sounds in all 4 quadrants. Soft, non-tender, non- distended. : Deferred. Rectal: Deferred. Skin: Warm, dry. Intact. Extremities: 2+ radial pulses bilaterally. No lower extremity edema. Neuro: Awake, alert, oriented x3. No gross motor or sensory deficits. Cranial nerves II through XII intact. Gait not assessed. Labs/Diagnostic Data Labs Test 10/18/24 05:13 10/17/24 18:16 10/17/24 17:23 10/17/24 10:25 Range/Units White Blood Count 2.8 L 4.4-10.8 10^3/uL Red Blood Count 3.08 L 4.0-5.20 10^6/uL Hemoglobin 8.0 #L 12.2-16.2 g/dL Hematocrit 25.3 L 36.0-46.0 % Mean Corpuscular Volume 82.1 80.0-100.0 fL Mean Corpuscular Hemoglobin 25.9 L 28.0-32.0 pg Mean Corpuscular Hemoglobin Concent 31.5 L 32.0-36.0 g/dL Red Cell Distribution Width 18.2 H 11.8-14.3 % Platelet Count 46 L 140-450 10^3/uL Mean Platelet Volume 8.6 6.9-10.8 fL Neutrophils (%) (Auto) 37.0-80.0 % Lymphocytes (%) (Auto) 10.0-50.0 % Monocytes (%) (Auto) 0.0-12.0 % Basophils (%) (Auto) 0.0-2.0 % Neutrophils # (Auto) 1.6-8.6 10 ^3/uL Lymphocytes # (Auto) 0.4-5.4 10 ^3/uL Monocytes # (Auto) 0-1.3 10 ^3/uL Differential Total Cells Counted 100.0 100 Neutrophils % (Manual) 77 37.0-80.0 Band Neutrophils % (Manual) 0 Lymphocytes % (Manual) 14 10.0-50.0 Monocytes % (Manual) 7 0-12 Eosinophils % (Manual) 1 0-7 Basophils % (Manual) 0 0.0-2.0 Metamyelocytes % (manual) 0 Myelocytes % (Manual) 1 Promyelocytes % (Manual) 0 Blast Cells % (Manual) 0 Nucleated Red Blood Cells 1.0 % Reactive Lymphocytes 0 Platelet Estimate Decreased Ovalocytes Few Schistocytes Few Sodium Level 148 H 136-145 mmol/L Potassium Level 3.7 3.5-5.1 mmol/L Chloride Level 119 H 98-107 mmol/L Carbon Dioxide Level 16 L 20-31 mmol/L Anion Gap 13 5-15 Blood Urea Nitrogen 33 H 9-23 mg/dL Creatinine 2.43 H 0.550-1.02 mg/dL Glomerular Filtration Rate Calc 21 >90 mL/min BUN/Creatinine Ratio 13.6 10.0-20.0 Serum Glucose 76 74-106 mg/dL Calcium Level 8.8 8.7-10.4 mg/dL Urine Color Light-orange Yellow Urine Clarity Turbid H Clear Urine pH 5.0 5.0-9.0 Urine Specific [place] 1.020 1.001-1.035 Urine Protein 1+ H Negative Urine Ketones Negative Negative Urine Blood 3+ H Negative /uL Urine Nitrite Negative Negative Urine Bilirubin Negative Negative Urine Urobilinogen Normal Negative mg/dL Urine Leukocyte Esterase 3+ Negative /uL Urine RBC 746 0 - 4 /hpf Urine WBC 217 0 - 5 /hpf Urine WBC Clumps Present None Seen /hpf Urine Squamous Epithelial Cells Few <5 /hpf Urine Bacteria Few H None Seen /hpf Urine Hyaline Casts Mod 0 - 2 /lpf Urine Creatinine 164.31 H 30.0-125.0 mg/dL Urine Sodium 15 L 40-220 mmol/L Urine Glucose Normal Normal mg/dL Free Thyroxine (T4) Calculated 0.79 L 0.89-1.76 ng/dL Body Fluid Source Peritoneal fluid Body Fluid pH 8.0 Body Fluid WBC (Manual) 214 H 0-200 CUMM Body Fluid RBC (Manual) 173 0-2000 CUMM Body Fluid Mononuclear Cells 97 % Body Fluid Polymorphonuclear Cells 3 0-25 % Test 10/17/24 10:10 10/17/24 09:36 10/16/24 05:01 10/15/24 06:24 Range/Units Eosinophils (%) (Auto) 0.3 0.0-7.0 % Eosinophils # (Auto) 0 0-0.8 10 ^3/uL Basophils # (Auto) 0 0-0.2 10 ^3/uL Prothrombin Time 15.0 H 9.3-11.8 sec Prothrombin Time INR 1.45 H 0.9-1.15 Activated Partial Thromboplast Time 46.5 H 24.5-34.5 SEC Total Bilirubin 0.7 0.2-1.0 mg/dL Aspartate Amino Transferase (AST) 65 H 13-40 U/L Alanine Aminotransferase (ALT) 29 7-40 U/L Alkaline Phosphatase 79 46-116 U/L Total Protein 4.7 L 5.7-8.2 g/dL Albumin 2.3 L 3.2-4.8 g/dL Thyroid Stimulating Hormone (TSH) 10.24 H 0.55-4.78 uIU/mL Iron Level 13 L 50-170 ug/dL Total Iron Binding Capacity 272 250-425 ug/dL Percent Iron Saturation 4.8 L 15-50 % Ferritin 32.6 10-291 ng/mL Ammonia 18 11-32 umol/L Hepatitis B Surface Antigen Negative Negative Hepatitis C Antibody Negative Negative Lactic Acid Level 1.7 0.4-2.0 mmol/L Troponin I High Sensitivity 73 *H </=34 ng/L Hepatitis A Antibody Total Positive H Negative Hepatitis B Surface Antibody Negative Negative Hepatitis B Core Total Antibody Negative Negative Test 10/14/24 20:24 10/14/24 11:00 Range/Units Influenza Type A Antigen Negative Negative Influenza Type B Antigen Negative Negative SARS-CoV-2 Antigen (Rapid) Negative NEGATIVE Magnesium Level 2.6 1.6-2.6 mg/dL B-Type Natriuretic Peptide 128.70 0-100 pg/mL Microbiology Date/Time Source Procedure Growth Status 10/14/24 19:05 Urine - Midstream Clean Catch Urine Culture - Final Complete Assessment Impression: Dyspnea Hepatic encephalopathy Anemia Ascites Liver cirrhosis Thrombocytopenia Hyperammonemia Plan: Supplemental oxygen PRN Titrate to keep O2 sats above 92%. Patient noted to be confused. Patient underwent ultrasound-guided paracentesis by IR with removal of 7.1 L ascitic fluid. Monitor hemoglobin Transfusing 1 unit PRBC. Monitor abdominal distension. On lactulose. Monitor renal function. Monitor electrolytes. Supplement as necessary. Monitor ins and outs. Updated daughter at bedside. GI prophylaxis - Protonix DVT prophylaxis. Prognosis: Poor given patient's multiple co-morbidities. Condition: Critical Rest of plan per hospitalist and other consultants. A total of 35 minutes of critical care time was spent reviewing the patient record, examining the patient, making a diagnostic and therapeutic plan, discussing this plan with the medical personnel, following up on diagnostic studies and following the patient for clinical stability excluding any and all procedures. At least 50% of this time was spent in direct, [id number] contact. Thank you, Dr. Ragsdale, for allowing me to participate in this patient's care. Further recommendations will depend on the patient's clinical course. Please do not hesitate to contact me if you have any questions or concerns. This medical document was created using an electronic medical record system with [employer] dictation system. Although these documentations are being carefully reviewed, there may still be some phonetic and typographical changes. The errors are purely typographical, due to imperfection on the software program, and do not reflect any compromise in the patient's medical care. Plan discussed with: Patient, Other (GLADYS Beth/Dr. Ragsdale) SCOTT NELSON MD Oct 18, 2024 10:07
--- NOTE | 2024-10-18 10:52 | DVHPN2 ---
Progress Note Date Seen: Oct 18, 2024 Medical Necessity Reason Pt with a Central, PICC or Fol: Yes The following are medically ne: Issa Catheter Subjective Patient reports: No new complaints Other Systems: Patient seen and examined by myself today in follow-up Objective vital signs Vital Sign Date Time Temp Pulse Resp B/P (MAP) Pulse Ox O2 Delivery O2 Flow Rate FiO2 10/18/24 09:00 98.4 90 14 90/50 (63) 95 98.4 10/17/24 20:00 Room Air* 0 21 Total Intake and Output 10/17/24 10/17/24 10/18/24 15:00 23:00 07:00 Intake Total 970 ml 0 ml Output Total 350 ml Balance 620 ml 0 ml medications Current Medications Medications Dose Ordered Sig/Leti Route Start Time Stop Time Status Last Admin Dose Admin Nitroglycerin 0.4 mg Q5MINP PRN SL 10/14/24 14:30 Morphine Sulfate 2 mg Q30M PRN IV 10/14/24 14:30 Rifaximin 550 mg BID PO 10/14/24 22:00 10/17/24 09:26 550 MG Ondansetron HCl 4 mg Q4HPRN PRN IV 10/14/24 14:30 10/15/24 12:07 4 MG Acetaminophen 650 mg Q4HP PRN PO 10/14/24 14:30 10/15/24 12:07 650 MG Pantoprazole Sodium 40 mg BID IV 10/14/24 22:00 10/18/24 09:38 40 MG Lactulose 30 ml Q8H PO 10/16/24 16:00 10/18/24 00:00 30 ML Iron Sucrose 110 ml @ 110 mls/hr DAILY@1200 IV 10/17/24 12:00 10/21/24 12:59 10/17/24 11:54 110 MLS/HR Midodrine 10 mg TID@0600,1200,1800 PO 10/17/24 10:45 10/18/24 05:54 10 MG Octreotide Acetate 100 mcg TID SUBCUT 10/17/24 14:00 10/18/24 06:26 100 MCG Sodium Chloride 1,000 ml @ 100 mls/hr Q10H IV 10/17/24 12:45 10/17/24 22:48 100 MLS/HR Examination: LUNGS:Normal, CVS:Normal, ABDOMEN:Abnormal, MSK:Normal laboratory and microbiology Laboratory Tests 10/18/24 05:13 Test 10/18/24 05:13 Range/Units Serum Glucose 76 74-106 mg/dL Microbiology Date/Time Source Procedure Growth Status 10/14/24 19:05 Urine - Midstream Clean Catch Urine Culture - Final Complete Problem List/Assessment/Plan Problem List/Assessment/Plan Acute kidney injury secondary hemodynamic mediated, FeNa < 1% hepatorenal syndrome Cirrhosis due to liver disease with large volume ascites Anemia likely due to blood loss Thrombocytopenia Hepatic encephalopathy Hypoalbuminemia Hypernatremia due to dehydration Recommendations Kidney function slightly improving today Issa catheter Strict I&Os IVF1/2 NS at 100 cc/hour Octreotide Midodrine Avoid hypotension IV albumin completed Paracentesis Strict Is&Os Continue to follow up Plan discussed with: Patient My Orders My Orders Orders - ZAINAB QUIJANO MD Procedure Category Date Status Time Sod Chl 0.45% (Sodium PHA 10/17/24 In Process Chloride 0.45% Via 12:45 ZAINAB QUIJANO MD Oct 18, 2024 10:52
[2024-10-18] MEDS: ALBUMIN 25% 100 ML IV SCH (12:45)
[2024-10-18] MEDS: NOREPINEPHRINE 8 MG/250ML KIT 250 ML IV SCH (12:45)
[2024-10-18] MEDS ORDERED: levoFLOXacin 500MG 100 ML IV ONE (13:30)
--- NOTE | 2024-10-18 13:37 | DVHPN2 ---
Progress Note - Dictate Date Seen: Oct 18, 2024 Medical Necessity Reason Pt with a Central, PICC or Fol: No The following are medically ne: Issa Catheter Subjective Comfortable in bed. No complaints. Daughter is at bedside. Overnight events noted. She was noted to be hypotensive yesterday. Received blood and albumin and blood pressure slightly improved. vital signs Vital Sign Date Time Temp Pulse Resp B/P (MAP) Pulse Ox O2 Delivery O2 Flow Rate FiO2 10/18/24 13:15 85 102/65 (77) 10/18/24 09:00 98.4 14 95 98.4 10/18/24 08:00 Room Air* 0 21 Total Intake and Output 10/17/24 10/17/24 10/18/24 14:59 22:59 06:59 Intake Total 970 ml 0 ml Output Total 350 ml Balance 620 ml 0 ml medications Current Medications Medications Dose Ordered Sig/Leti Route Start Time Stop Time Status Last Admin Dose Admin Nitroglycerin 0.4 mg Q5MINP PRN SL 10/14/24 14:30 Morphine Sulfate 2 mg Q30M PRN IV 10/14/24 14:30 Rifaximin 550 mg BID PO 10/14/24 22:00 10/17/24 09:26 550 MG Ondansetron HCl 4 mg Q4HPRN PRN IV 10/14/24 14:30 10/15/24 12:07 4 MG Acetaminophen 650 mg Q4HP PRN PO 10/14/24 14:30 10/15/24 12:07 650 MG Pantoprazole Sodium 40 mg BID IV 10/14/24 22:00 10/18/24 09:38 40 MG Lactulose 30 ml Q8H PO 10/16/24 16:00 10/18/24 00:00 30 ML Iron Sucrose 110 ml @ 110 mls/hr DAILY@1200 IV 10/17/24 12:00 10/21/24 12:59 10/17/24 11:54 110 MLS/HR Midodrine 10 mg TID@0600,1200,1800 PO 10/17/24 10:45 10/18/24 05:54 10 MG Octreotide Acetate 100 mcg TID SUBCUT 10/17/24 14:00 10/18/24 06:26 100 MCG Sodium Chloride 1,000 ml @ 100 mls/hr Q10H IV 10/17/24 12:45 10/18/24 11:10 100 MLS/HR Albumin Human 100 ml @ 100 mls/hr Q8H IV 10/18/24 12:45 10/18/24 21:44 Norepinephrine Bitartrate 250 ml @ 3.75 mls/hr Q24H IV 10/18/24 12:45 Levofloxacin/ Dextrose 100 ml @ 100 mls/hr DAILY IV 10/19/24 10:00 UNV objective Alert and awake knows her name. Daughter at bedside. Heart regular rate and rhythm S1-S2. Lungs fair air movement poor inspiratory effort. Abdomen soft nontender positive bowel sounds. Extremities no edema. laboratory and microbiology Laboratory Tests 10/18/24 05:13 Test 10/18/24 05:13 Range/Units Serum Glucose 76 74-106 mg/dL Assessment/Plan Her blood pressure trending down this morning. Therefore she was started on Levophed. We will give her few more dose of IV albumin. Her paracentesis show white cell count of 214 however preliminary culture no organisms. We will empirically start her on IV antibiotics possible peritonitis. We will send blood cultures as well. To continue rest of supportive care and treatment as she is on. Discussed with the daughter at length regarding her end-stage liver disease and poor prognosis given a on her hepatic encephalopathy with hypotension along with the nurse at bedside. Problems(with codes): (1) Hepatic encephalopathy (2) Anemia (3) Ascites (4) Liver cirrhosis (5) Thrombocytopenia (6) Hyperammonemia Dietary Evaluation Review Comments: Encourage feeding and increase PO intake to meet 75% of her needs. Consider nutrition supplementation after further assessment of her kidney function. Expected Outcomes/Goals: Improved nutrition status and gradual weight gains. Plan discussed with: Patient, Daughter, Other ABHISHEK FINE MD Oct 18, 2024 13:37
[2024-10-18] MEDS: cefTRIAXone 1GM/50ML D5W 50 ML IV ONE (13:45)
--- NOTE | 2024-10-18 18:03 | DVHPN2 ---
Progress Note - Dictate Date Seen: Oct 18, 2024 Medical Necessity Reason Pt with a Central, PICC or Fol: No The following are medically ne: Issa Catheter Subjective Patient was transferred to [facility] today because of persistent hypotension which started after her large volume paracentesis Patient is currently on Levophed at four mics per hour and her blood pressure has improved Patient also received albumin There was no nausea vomiting abdominal pain or GI bleeding She had a midline placed A paracentesis fluid showed 214 WBC mostly mononuclear cells which does not meet criteria for spontaneous bacterial peritonitis vital signs Vital Sign Date Time Temp Pulse Resp B/P (MAP) Pulse Ox O2 Delivery O2 Flow Rate FiO2 10/18/24 15:32 82 9 120/82 (95) 98 10/18/24 14:50 Room Air* 0 21 10/18/24 13:00 97.4 97.4 Total Intake and Output 10/17/24 10/17/24 10/18/24 15:00 23:00 07:00 Intake Total 970 ml 0 ml Output Total 350 ml Balance 620 ml 0 ml medications Current Medications Medications Dose Ordered Sig/Leti Route Start Time Stop Time Status Last Admin Dose Admin Nitroglycerin 0.4 mg Q5MINP PRN SL 10/14/24 14:30 Morphine Sulfate 2 mg Q30M PRN IV 10/14/24 14:30 Rifaximin 550 mg BID PO 10/14/24 22:00 10/17/24 09:26 550 MG Ondansetron HCl 4 mg Q4HPRN PRN IV 10/14/24 14:30 10/15/24 12:07 4 MG Acetaminophen 650 mg Q4HP PRN PO 10/14/24 14:30 10/15/24 12:07 650 MG Pantoprazole Sodium 40 mg BID IV 10/14/24 22:00 10/18/24 09:38 40 MG Lactulose 30 ml Q8H PO 10/16/24 16:00 10/18/24 00:00 30 ML Iron Sucrose 110 ml @ 110 mls/hr DAILY@1200 IV 10/17/24 12:00 10/21/24 12:59 10/17/24 11:54 110 MLS/HR Midodrine 10 mg TID@0600,1200,1800 PO 10/17/24 10:45 10/18/24 05:54 10 MG Octreotide Acetate 100 mcg TID SUBCUT 10/17/24 14:00 10/18/24 06:26 100 MCG Sodium Chloride 1,000 ml @ 100 mls/hr Q10H IV 10/17/24 12:45 10/18/24 11:10 100 MLS/HR Albumin Human 100 ml @ 100 mls/hr Q8H IV 10/18/24 12:45 10/18/24 21:44 Norepinephrine Bitartrate 250 ml @ 3.75 mls/hr Q24H IV 10/18/24 12:45 Ceftriaxone Sodium 50 ml @ 100 mls/hr DAILY@09 IV 10/19/24 09:00 objective Elderly thin female in bed comfortable alert awake oriented to self only. HEENT notable for poor dentition. Pupils equal round react to light. Neck supple no JVD. Lungs fair air movement chest tube will expansion. No wheezing noted Heart regular rate and rhythm S1 plus S2 without audible murmurs. Abdomen is distended. Tympanic to palpation. Nontender. Positive bowel sounds. Extremities trace edema around the ankles. Chronic venous stasis noted around the ankles/calf region in lower extremities. No focal neurological deficits noted laboratory and microbiology Laboratory Tests 10/18/24 05:13 Test 10/18/24 05:13 Range/Units Serum Glucose 76 74-106 mg/dL Problems(with codes): (1) Hypotension (2) Hyperammonemia (3) Thrombocytopenia (4) Liver cirrhosis (5) Ascites (6) Anemia (7) Hepatic encephalopathy Prognosis Plan Continue supportive care Taper down her Levophed if blood pressure improves Lactulose 30 mL p.o. daily Patient is currently on IV antibiotics Diet as tolerated Hepatitis panel is negative and ferritin is normal JORGE is pending Etiology of cirrhosis unclear possibly related to previous alcohol use Dietary Evaluation Review Comments: Encourage feeding and increase PO intake to meet 75% of her needs. Consider nutrition supplementation after further assessment of her kidney function. Expected Outcomes/Goals: Improved nutrition status and gradual weight gains. Plan discussed with: Other ([facility] nurse) LINA DIAZ MD Oct 18, 2024 18:03
--- NOTE | 2024-10-18 21:50 | DVHPN2 ---
Progress Note - Dictate Date Seen: Oct 18, 2024 Medical Necessity Reason Pt with a Central, PICC or Fol: No The following are medically ne: Issa Catheter Subjective Patient seen and examined at bedside. Breathing comfortably on room air. Overnight events reviewed. vital signs Vital Sign Date Time Temp Pulse Resp B/P (MAP) Pulse Ox O2 Delivery O2 Flow Rate FiO2 10/18/24 20:00 81 10/18/24 20:00 97.1 9 113/70 (84) 98 97.1 10/18/24 20:00 Room Air* 0 21 Total Intake and Output 10/17/24 10/17/24 10/18/24 15:00 23:00 07:00 Intake Total 970 ml 0 ml Output Total 350 ml Balance 620 ml 0 ml medications Current Medications Medications Dose Ordered Sig/Leti Route Start Time Stop Time Status Last Admin Dose Admin Nitroglycerin 0.4 mg Q5MINP PRN SL 10/14/24 14:30 Morphine Sulfate 2 mg Q30M PRN IV 10/14/24 14:30 Rifaximin 550 mg BID PO 10/14/24 22:00 10/17/24 09:26 550 MG Ondansetron HCl 4 mg Q4HPRN PRN IV 10/14/24 14:30 10/15/24 12:07 4 MG Acetaminophen 650 mg Q4HP PRN PO 10/14/24 14:30 10/15/24 12:07 650 MG Pantoprazole Sodium 40 mg BID IV 10/14/24 22:00 10/18/24 09:38 40 MG Lactulose 30 ml Q8H PO 10/16/24 16:00 10/18/24 00:00 30 ML Iron Sucrose 110 ml @ 110 mls/hr DAILY@1200 IV 10/17/24 12:00 10/21/24 12:59 10/18/24 14:00 110 MLS/HR Midodrine 10 mg TID@0600,1200,1800 PO 10/17/24 10:45 10/18/24 19:38 10 MG Octreotide Acetate 100 mcg TID SUBCUT 10/17/24 14:00 10/18/24 06:26 100 MCG Sodium Chloride 1,000 ml @ 100 mls/hr Q10H IV 10/17/24 12:45 10/18/24 18:45 100 MLS/HR Albumin Human 100 ml @ 100 mls/hr Q8H IV 10/18/24 12:45 10/18/24 21:44 Norepinephrine Bitartrate 250 ml @ 3.75 mls/hr Q24H IV 10/18/24 12:45 10/18/24 12:45 3.75 MLS/HR Ceftriaxone Sodium 50 ml @ 100 mls/hr DAILY@09 IV 10/19/24 09:00 objective Gen.: Patient lying in bed in no apparent distress. Breathing on room air. Head: Normocephalic, atraumatic. Eyes: EOMI/PERRLA. Ears: Normal hearing. Normal anatomy. Neck/trachea: Trachea midline, supple. Nose: Normal external anatomy. Mouth: Moist mucous membranes. Chest: Decreased air entry bilaterally. No wheezing or rhonchi. Cardiovascular: Positive S1, positive S2. Regular rate and rhythm. Abdomen: Positive bowel sounds in all 4 quadrants. Soft, non-tender, non- distended. : Deferred. Rectal: Deferred. Skin: Warm, dry. Intact. Extremities: 2+ radial pulses bilaterally. No lower extremity edema. Neuro: Awake, alert, oriented x3. No gross motor or sensory deficits. Cranial nerves II through XII intact. Gait not assessed. laboratory and microbiology Laboratory Tests 10/18/24 05:13 Test 10/18/24 05:13 Range/Units Serum Glucose 76 74-106 mg/dL Assessment/Plan Impression: Hepatic encephalopathy Anemia Ascites Liver cirrhosis Thrombocytopenia Hyperammonemia Events: Breathing on room air No respiratory distress. On pressors for hemodynamic support Levophed 4 mcg/min Titrate to keep mean arterial pressure greater than 65 mmHg Brain MRI showed no e/o acute abnormalities; Moderate chronic microvascular ischemic changes. A 1.4 cm septated extra-axial cystic lesion in the left parietal region at the confluence of the transverse and sigmoid dural venous sinuses, most likely an arachnoid cyst or granulation tissue. Head of bed elevation Aspiration precautions S/p 1 unit PRBC today. Monitor hemoglobin Labs and imaging reviewed. Rest of plan as noted below. Plan: Supplemental oxygen PRN Titrate to keep O2 sats above 92%. 10/17 - Patient underwent ultrasound-guided paracentesis by IR with removal of 7.1 L ascitic fluid. Monitor hemoglobin Monitor abdominal distension. On lactulose. Monitor renal function. Monitor electrolytes. Supplement as necessary. Monitor ins and outs. GI prophylaxis - Protonix DVT prophylaxis. Prognosis: Poor given patient's multiple co-morbidities. Condition: Critical Rest of plan per hospitalist and other consultants. A total of 35 minutes of critical care time was spent reviewing the patient record, examining the patient, making a diagnostic and therapeutic plan, discussing this plan with the medical personnel, following up on diagnostic studies and following the patient for clinical stability excluding any and all procedures. At least 50% of this time was spent in direct, [id number] contact. Thank you, Dr. Ragsdale, for allowing me to participate in this patient's care. Further recommendations will depend on the patient's clinical course. Please do not hesitate to contact me if you have any questions or concerns. This medical document was created using an electronic medical record system with [id number] dictation system. Although these documentations are being carefully reviewed, there may still be some phonetic and typographical changes. The errors are purely typographical, due to imperfection on the software program, and do not reflect any compromise in the patient's medical care. Dietary Evaluation Review Comments: Encourage feeding and increase PO intake to meet 75% of her needs. Consider nutrition supplementation after further assessment of her kidney function. Expected Outcomes/Goals: Improved nutrition status and gradual weight gains. Plan discussed with: Other (GLADYS Siegel) Critical Care Time(min): 35 SCOTT NELSON MD Oct 18, 2024 21:50
[2024-10-19] VITALS (89 sets, daily range): BP systolic 88–157; BP diastolic 52–88; PULSE 54–100; RESP 7–17; TEMP 93.8–98.8; O2SAT 93–100
[2024-10-19 08:04] LABS: Sodium 144 mmol/L (136-145)
[2024-10-19 08:05] LABS: Anion Gap 8 (5-15)
[2024-10-19 08:08] LABS: Calcium 8.6 mg/dL (8.7-10.4); Carbon Dioxide 17 mmol/L (20-31); Chloride 119 mmol/L (98-107)
[2024-10-19 08:10] LABS: BUN/Creatinine Ratio 13.5 (10.0-20.0); Blood Urea Nitrogen 30 mg/dL (9-23); Glucose 117 mg/dL (74-106)
[2024-10-19 08:22] LABS: Basophils # (auto) 0 10 ^3/uL (0-0.2); Basophils % (auto) 0.5 % (0.0-2.0); Eosinophils # (auto) 0 10 ^3/uL (0-0.8); Eosinophils % (auto) 0.1 % (0.0-7.0); Hematocrit 27.9 % (36.0-46.0); Hemoglobin 8.6 g/dL (12.2-16.2); Lymphocytes # (auto) 0.7 10 ^3/uL (0.4-5.4); Lymphocytes % (auto) 15.4 % (10.0-50.0); Mean Corpuscular Hemoglobin 25.3 pg (28.0-32.0); Mean Corpuscular Hgb Conc. 30.9 g/dL (32.0-36.0); Mean Corpuscular Volume 82.1 fL (80.0-100.0); Monocytes # (auto) 0.5 10 ^3/uL (0-1.3); Monocytes % (auto) 10.1 % (0.0-12.0); Neutrophils # (auto) 3.6 10 ^3/uL (1.6-8.6); Neutrophils % (auto) 73.9 % (37.0-80.0); Nucleated Red Blood Cells % 0.6 %; Red Cell Distribution Width 18.3 % (11.8-14.3); White Blood Cell 4.8 10^3/uL (4.4-10.8)
[2024-10-19 08:25] LABS: Platelet Count (auto) 57 10^3/uL (140-450)
[2024-10-19] MEDS: cefTRIAXone 1GM/50ML D5W 50 ML IV SCH (09:51)
[2024-10-19] MEDS ORDERED: levoFLOXacin 500MG 100 ML IV SCH (10:00)
[2024-10-19] MEDS ORDERED: DOPamine 1600MCG/ML D5W 250 ML IV SCH (10:15)
[2024-10-19] MEDS: SODIUM BICARB 50mEq/50ml Vial 50 ML in D5W 5% 1,000 ML IV SCH (11:30)
[2024-10-19] MEDS: DOPamine 1600MCG/ML D5W 250 ML IV SCH (11:40)
--- NOTE | 2024-10-19 11:43 | DVHPN2 ---
Progress Note Date Seen: Oct 19, 2024 Medical Necessity Reason Pt with a Central, PICC or Fol: No The following are medically ne: Issa Catheter Subjective Patient reports: No new complaints Other Systems: Patient seen and examined by myself on follow-up today Objective vital signs Vital Sign Date Time Temp Pulse Resp B/P (MAP) Pulse Ox O2 Delivery O2 Flow Rate FiO2 10/19/24 11:40 117/71 10/19/24 11:15 96.3 61 10 100 205.3 10/19/24 10:00 Room Air* 0 21 Total Intake and Output 10/18/24 10/18/24 10/19/24 15:00 23:00 07:00 Intake Total 427.0 ml 1321.25 ml 1070.00 ml Output Total 1600 ml Balance 427.0 ml -278.75 ml 1070.00 ml medications Current Medications Medications Dose Ordered Sig/Leti Route Start Time Stop Time Status Last Admin Dose Admin Nitroglycerin 0.4 mg Q5MINP PRN SL 10/14/24 14:30 Morphine Sulfate 2 mg Q30M PRN IV 10/14/24 14:30 Rifaximin 550 mg BID PO 10/14/24 22:00 10/19/24 09:51 550 MG Ondansetron HCl 4 mg Q4HPRN PRN IV 10/14/24 14:30 10/15/24 12:07 4 MG Acetaminophen 650 mg Q4HP PRN PO 10/14/24 14:30 10/15/24 12:07 650 MG Pantoprazole Sodium 40 mg BID IV 10/14/24 22:00 10/19/24 09:50 40 MG Lactulose 30 ml Q8H PO 10/16/24 16:00 10/18/24 23:35 30 ML Iron Sucrose 110 ml @ 110 mls/hr DAILY@1200 IV 10/17/24 12:00 10/21/24 12:59 10/18/24 14:00 110 MLS/HR Midodrine 10 mg TID@0600,1200,1800 PO 10/17/24 10:45 10/19/24 05:43 10 MG Octreotide Acetate 100 mcg TID SUBCUT 10/17/24 14:00 10/19/24 05:43 100 MCG Norepinephrine Bitartrate 250 ml @ 3.75 mls/hr Q24H IV 10/18/24 12:45 10/18/24 12:45 3.75 MLS/HR Ceftriaxone Sodium 50 ml @ 100 mls/hr DAILY@09 IV 10/19/24 09:00 10/19/24 09:51 100 MLS/HR Sodium Bicarbonate 50 ml/ Dextrose 1,050 ml @ 100 mls/hr [id number] IV 10/19/24 10:15 10/19/24 11:30 100 MLS/HR Dopamine HCl/ Dextrose 250 ml @ 5.25 mls/hr Q24H IV 10/19/24 11:15 10/19/24 11:40 5.25 MLS/HR Examination: LUNGS:Normal, CVS:Normal, MSK:Normal laboratory and microbiology Laboratory Tests 10/19/24 07:37 Test 10/19/24 07:37 Range/Units Serum Glucose 117 H 74-106 mg/dL Microbiology Date/Time Source Procedure Growth Status 10/17/24 10:25 Ascities Fluid Gram Stain - Final Resulted 10/17/24 10:25 Ascities Fluid Body Fluid Culture - Preliminary Resulted 10/14/24 19:05 Urine - Midstream Clean Catch Urine Culture - Final Complete Problem List/Assessment/Plan Problem List/Assessment/Plan Acute kidney injury secondary hemodynamic mediated, FeNa < 1% hepatorenal syndrome Cirrhosis due to liver disease with large volume ascites Anemia likely due to blood loss Metabolic acidosis Thrombocytopenia Hepatic encephalopathy Hypoalbuminemia Hypernatremia due to dehydration Recommendations Kidney function slightly improving today Issa catheter Strict I&Os IVF D5W with sodium bicarb 50 mEq/L at 100 cc/hour Low-dose dopamine Octreotide Midodrine Avoid hypotension IV albumin completed Paracentesis Strict Is&Os Continue to follow up Plan discussed with: Patient, Daughter My Orders My Orders Orders - ZAINAB QUIJANO MD Procedure Category Date Status Time D5w 5% (Dextrose 5%) PHA 10/19/24 In Process W/Sodium Bicarb 50m 10:15 Dopamine 1600mcg/Ml PHA 10/19/24 In Process D5W 11:15 Dietary Evaluation Review Comments: Encourage feeding and increase PO intake to meet 75% of her needs. Consider nutrition supplementation after further assessment of her kidney function. Expected Outcomes/Goals: Improved nutrition status and gradual weight gains. ZAINAB QUIJANO MD Oct 19, 2024 11:43
[2024-10-19] MEDS: LACTULOSE 20Gm/30ML SOLN PO SCH (14:17)
--- NOTE | 2024-10-19 15:19 | DVHPN2 ---
Progress Note - Dictate Date Seen: Oct 19, 2024 Medical Necessity Reason Pt with a Central, PICC or Fol: No The following are medically ne: Issa Catheter Subjective Patient is still in [place] She is off the Levophed Patient is receiving dopamine for renal perfusion; creatinine down to 2.2 to Patient also received albumin There was no nausea vomiting abdominal pain or GI bleeding ; hemoglobin stable at 8.6 She had a midline placed A paracentesis fluid showed 214 WBC mostly mononuclear cells which does not meet criteria for spontaneous bacterial peritonitis vital signs Vital Sign Date Time Temp Pulse Resp B/P (MAP) Pulse Ox O2 Delivery O2 Flow Rate FiO2 10/19/24 12:45 157/88 10/19/24 11:15 96.3 61 10 100 205.3 10/19/24 10:00 Room Air* 0 21 Total Intake and Output 10/18/24 10/18/24 10/19/24 15:00 23:00 07:00 Intake Total 427.0 ml 1321.25 ml 1070.00 ml Output Total 1600 ml Balance 427.0 ml -278.75 ml 1070.00 ml medications Current Medications Medications Dose Ordered Sig/Leti Route Start Time Stop Time Status Last Admin Dose Admin Nitroglycerin 0.4 mg Q5MINP PRN SL 10/14/24 14:30 Morphine Sulfate 2 mg Q30M PRN IV 10/14/24 14:30 Rifaximin 550 mg BID PO 10/14/24 22:00 10/19/24 09:51 550 MG Ondansetron HCl 4 mg Q4HPRN PRN IV 10/14/24 14:30 10/15/24 12:07 4 MG Acetaminophen 650 mg Q4HP PRN PO 10/14/24 14:30 10/15/24 12:07 650 MG Pantoprazole Sodium 40 mg BID IV 10/14/24 22:00 10/19/24 09:50 40 MG Iron Sucrose 110 ml @ 110 mls/hr DAILY@1200 IV 10/17/24 12:00 10/21/24 12:59 10/19/24 12:10 110 MLS/HR Midodrine 10 mg TID@0600,1200,1800 PO 10/17/24 10:45 10/19/24 12:10 10 MG Octreotide Acetate 100 mcg TID SUBCUT 10/17/24 14:00 10/19/24 14:17 100 MCG Norepinephrine Bitartrate 250 ml @ 3.75 mls/hr Q24H IV 10/18/24 12:45 10/18/24 12:45 3.75 MLS/HR Ceftriaxone Sodium 50 ml @ 100 mls/hr DAILY@09 IV 10/19/24 09:00 10/19/24 09:51 100 MLS/HR Sodium Bicarbonate 50 ml/ Dextrose 1,050 ml @ 100 mls/hr [id number] IV 10/19/24 10:15 10/19/24 11:30 100 MLS/HR Dopamine HCl/ Dextrose 250 ml @ 5.25 mls/hr Q24H IV 10/19/24 11:15 10/19/24 11:40 5.25 MLS/HR Lactulose 30 ml Q6H PO 10/19/24 14:00 10/19/24 14:17 30 ML objective Elderly thin female in bed comfortable alert awake oriented to self only. HEENT notable for poor dentition. Pupils equal round react to light. Neck supple no JVD. Lungs fair air movement chest tube will expansion. No wheezing noted Heart regular rate and rhythm S1 plus S2 without audible murmurs. Abdomen is distended. Tympanic to palpation. Nontender. Positive bowel sounds. Extremities trace edema around the ankles. Chronic venous stasis noted around the ankles/calf region in lower extremities. No focal neurological deficits noted laboratory and microbiology Laboratory Tests 10/19/24 07:37 Test 10/19/24 07:37 Range/Units Serum Glucose 117 H 74-106 mg/dL Problems(with codes): (1) Acute renal failure (2) Hypotension (3) Hyperammonemia (4) Thrombocytopenia (5) Liver cirrhosis (6) Ascites (7) Anemia (8) Hepatic encephalopathy Prognosis Plan Continue supportive care Lactulose 30 mL p.o. daily Patient is currently on IV antibiotics Diet as tolerated Hepatitis panel is negative and ferritin is normal JORGE is negative Etiology of cirrhosis unclear possibly related to previous alcohol use MELD score is 18 points, continue observation Dietary Evaluation Review Comments: Encourage feeding and increase PO intake to meet 75% of her needs. Consider nutrition supplementation after further assessment of her kidney function. Expected Outcomes/Goals: Improved nutrition status and gradual weight gains. Plan discussed with: Other (MARCE Nurse) LINA DIAZ MD Oct 19, 2024 15:19
--- NOTE | 2024-10-19 20:13 | DVHPN2 ---
Progress Note - Dictate Date Seen: Oct 19, 2024 Medical Necessity Reason Pt with a Central, PICC or Fol: No The following are medically ne: Issa Catheter Subjective Comfortable in bed. No complaints. Daughter is at bedside. Started on dopamine and bicarb drip for Nephrology. Off of Levophed. Blood pressure is stable. Ammonia level is elevated. vital signs Vital Sign Date Time Temp Pulse Resp B/P (MAP) Pulse Ox O2 Delivery O2 Flow Rate FiO2 10/19/24 20:00 93.8 72 10 136/79 (98) 100 93.8 10/19/24 18:00 Room Air* 0 21 Total Intake and Output 10/18/24 10/18/24 10/19/24 15:00 23:00 07:00 Intake Total 427.0 ml 1321.25 ml 1070.00 ml Output Total 1600 ml Balance 427.0 ml -278.75 ml 1070.00 ml medications Current Medications Medications Dose Ordered Sig/Leti Route Start Time Stop Time Status Last Admin Dose Admin Nitroglycerin 0.4 mg Q5MINP PRN SL 10/14/24 14:30 Morphine Sulfate 2 mg Q30M PRN IV 10/14/24 14:30 Rifaximin 550 mg BID PO 10/14/24 22:00 10/19/24 09:51 550 MG Ondansetron HCl 4 mg Q4HPRN PRN IV 10/14/24 14:30 10/15/24 12:07 4 MG Acetaminophen 650 mg Q4HP PRN PO 10/14/24 14:30 10/15/24 12:07 650 MG Pantoprazole Sodium 40 mg BID IV 10/14/24 22:00 10/19/24 09:50 40 MG Iron Sucrose 110 ml @ 110 mls/hr DAILY@1200 IV 10/17/24 12:00 10/21/24 12:59 10/19/24 12:10 110 MLS/HR Midodrine 10 mg TID@0600,1200,1800 PO 10/17/24 10:45 10/19/24 18:02 10 MG Octreotide Acetate 100 mcg TID SUBCUT 10/17/24 14:00 10/19/24 14:17 100 MCG Norepinephrine Bitartrate 250 ml @ 3.75 mls/hr Q24H IV 10/18/24 12:45 10/18/24 12:45 3.75 MLS/HR Ceftriaxone Sodium 50 ml @ 100 mls/hr DAILY@09 IV 10/19/24 09:00 10/19/24 09:51 100 MLS/HR Sodium Bicarbonate 50 ml/ Dextrose 1,050 ml @ 100 mls/hr [id number] IV 10/19/24 10:15 10/19/24 11:30 100 MLS/HR Dopamine HCl/ Dextrose 250 ml @ 5.25 mls/hr Q24H IV 10/19/24 11:15 10/19/24 11:40 5.25 MLS/HR Lactulose 30 ml Q6H PO 10/19/24 14:00 10/19/24 14:17 30 ML objective Alert and awake knows her name. Daughter at bedside. Heart regular rate and rhythm S1-S2. Lungs fair air movement poor inspiratory effort. Abdomen soft nontender positive bowel sounds. Extremities no edema. laboratory and microbiology Laboratory Tests 10/19/24 07:37 Test 10/19/24 07:37 Range/Units Serum Glucose 117 H 74-106 mg/dL Assessment/Plan Continue current antibiotics and rest of supportive care and treatment as she is on. We will increase lactulose frequency due to elevated ammonia levels. Once again discussed with the patient and her daughter along with the nurse at bedside regarding her overall guarded condition with the end-stage liver disease. Further clinical management per clinical course and recommendations from the consultants. Problems(with codes): (1) Ascites (2) Liver cirrhosis (3) Hepatic encephalopathy (4) Anemia (5) Thrombocytopenia (6) Hyperammonemia (7) Hypotension (8) Acute renal failure Dietary Evaluation Review Comments: Encourage feeding and increase PO intake to meet 75% of her needs. Consider nutrition supplementation after further assessment of her kidney function. Expected Outcomes/Goals: Improved nutrition status and gradual weight gains. Plan discussed with: Patient, Daughter ABHISHEK FINE MD Oct 19, 2024 20:13
--- NOTE | 2024-10-19 22:34 | DVHPN2 ---
Progress Note - Dictate Date Seen: Oct 19, 2024 Medical Necessity Reason Pt with a Central, PICC or Fol: No The following are medically ne: Issa Catheter Subjective Patient seen and examined at bedside. Breathing comfortably on room air. Overnight events reviewed. vital signs Vital Sign Date Time Temp Pulse Resp B/P (MAP) Pulse Ox O2 Delivery O2 Flow Rate FiO2 10/19/24 21:15 66 9 123/70 (87) 100 10/19/24 20:00 Room Air* 0 21 10/19/24 20:00 93.8 93.8 Total Intake and Output 10/18/24 10/18/24 10/19/24 15:00 23:00 07:00 Intake Total 427.0 ml 1321.25 ml 1070.00 ml Output Total 1600 ml Balance 427.0 ml -278.75 ml 1070.00 ml medications Current Medications Medications Dose Ordered Sig/Leti Route Start Time Stop Time Status Last Admin Dose Admin Nitroglycerin 0.4 mg Q5MINP PRN SL 10/14/24 14:30 Morphine Sulfate 2 mg Q30M PRN IV 10/14/24 14:30 Rifaximin 550 mg BID PO 10/14/24 22:00 10/19/24 22:20 550 MG Ondansetron HCl 4 mg Q4HPRN PRN IV 10/14/24 14:30 10/15/24 12:07 4 MG Acetaminophen 650 mg Q4HP PRN PO 10/14/24 14:30 10/15/24 12:07 650 MG Pantoprazole Sodium 40 mg BID IV 10/14/24 22:00 10/19/24 22:20 40 MG Iron Sucrose 110 ml @ 110 mls/hr DAILY@1200 IV 10/17/24 12:00 10/21/24 12:59 10/19/24 12:10 110 MLS/HR Midodrine 10 mg TID@0600,1200,1800 PO 10/17/24 10:45 10/19/24 18:02 10 MG Octreotide Acetate 100 mcg TID SUBCUT 10/17/24 14:00 10/19/24 22:20 100 MCG Norepinephrine Bitartrate 250 ml @ 3.75 mls/hr Q24H IV 10/18/24 12:45 10/18/24 12:45 3.75 MLS/HR Ceftriaxone Sodium 50 ml @ 100 mls/hr DAILY@09 IV 10/19/24 09:00 10/19/24 09:51 100 MLS/HR Sodium Bicarbonate 50 ml/ Dextrose 1,050 ml @ 100 mls/hr [id number] IV 10/19/24 10:15 10/19/24 22:25 100 MLS/HR Dopamine HCl/ Dextrose 250 ml @ 5.25 mls/hr Q24H IV 10/19/24 11:15 10/19/24 11:40 5.25 MLS/HR Lactulose 30 ml Q6H PO 10/19/24 14:00 10/19/24 22:20 30 ML objective Gen.: Patient lying in bed in no apparent distress. Breathing on room air. Head: Normocephalic, atraumatic. Eyes: EOMI/PERRLA. Ears: Normal hearing. Normal anatomy. Neck/trachea: Trachea midline, supple. Nose: Normal external anatomy. Mouth: Moist mucous membranes. Chest: Decreased air entry bilaterally. No wheezing or rhonchi. Cardiovascular: Positive S1, positive S2. Regular rate and rhythm. Abdomen: Positive bowel sounds in all 4 quadrants. Soft, non-tender, non- distended. : Deferred. Rectal: Deferred. Skin: Warm, dry. Intact. Extremities: 2+ radial pulses bilaterally. No lower extremity edema. Neuro: Awake, alert, oriented x3. No gross motor or sensory deficits. Cranial nerves II through XII intact. Gait not assessed. laboratory and microbiology Laboratory Tests 10/19/24 07:37 Test 10/19/24 07:37 Range/Units Serum Glucose 117 H 74-106 mg/dL Assessment/Plan Impression: Hepatic encephalopathy Anemia Ascites Liver cirrhosis Thrombocytopenia Hyperammonemia Events: Breathing on room air No respiratory distress. On dopamine drip 2 mcg/min for renal dosing. Titrate to keep mean arterial pressure greater than 65 mmHg. Off Levophed. On bicarb drip. Continue abx Head of bed elevation Aspiration precautions Iron supplementation Monitor hemoglobin Labs and imaging reviewed. Rest of plan as noted below. Plan: Supplemental oxygen PRN Titrate to keep O2 sats above 92%. 10/17 - Patient underwent ultrasound-guided paracentesis by IR with removal of 7.1 L ascitic fluid. Monitor hemoglobin Monitor abdominal distension. On lactulose. Monitor renal function. Monitor electrolytes. Supplement as necessary. Monitor ins and outs. GI prophylaxis - Protonix DVT prophylaxis. Prognosis: Poor given patient's multiple co-morbidities. Condition: Critical Rest of plan per hospitalist and other consultants. A total of 35 minutes of critical care time was spent reviewing the patient record, examining the patient, making a diagnostic and therapeutic plan, discussing this plan with the medical personnel, following up on diagnostic studies and following the patient for clinical stability excluding any and all procedures. At least 50% of this time was spent in direct, [id number] contact. Thank you, Dr. Ragsdale, for allowing me to participate in this patient's care. Further recommendations will depend on the patient's clinical course. Please do not hesitate to contact me if you have any questions or concerns. This medical document was created using an electronic medical record system with [employer] dictation system. Although these documentations are being carefully reviewed, there may still be some phonetic and typographical changes. The errors are purely typographical, due to imperfection on the software program, and do not reflect any compromise in the patient's medical care. Dietary Evaluation Review Comments: Encourage feeding and increase PO intake to meet 75% of her needs. Consider nutrition supplementation after further assessment of her kidney function. Expected Outcomes/Goals: Improved nutrition status and gradual weight gains. Plan discussed with: Patient, Other (GLADYS Brown) Critical Care Time(min): 35 SCOTT NELSON MD Oct 19, 2024 22:34
[2024-10-20] VITALS (54 sets, daily range): BP systolic 79–131; BP diastolic 41–82; PULSE 67–117; RESP 8–17; TEMP 97.1–98.4; O2SAT 89–100
[2024-10-20 05:55] LABS: Sodium 143 mmol/L (136-145)
[2024-10-20 05:56] LABS: Anion Gap 9 (5-15)
[2024-10-20 05:57] LABS: Basophils # (auto) 0 10 ^3/uL (0-0.2); Eosinophils # (auto) 0 10 ^3/uL (0-0.8); Eosinophils % (auto) 0.1 % (0.0-7.0); Hemoglobin 8.7 g/dL (12.2-16.2); Lymphocytes # (auto) 0.5 10 ^3/uL (0.4-5.4); Monocytes # (auto) 0.4 10 ^3/uL (0-1.3); Platelet Count (auto) 46 10^3/uL (140-450); White Blood Cell 2.9 10^3/uL (4.4-10.8)
[2024-10-20 06:00] LABS: Basophils % (auto) 0.7 % (0.0-2.0); Hematocrit 27.6 % (36.0-46.0); Lymphocytes % (auto) 17.4 % (10.0-50.0); Mean Corpuscular Hemoglobin 25.6 pg (28.0-32.0); Mean Corpuscular Hgb Conc. 31.4 g/dL (32.0-36.0); Mean Corpuscular Volume 81.5 fL (80.0-100.0); Monocytes % (auto) 14.2 % (0.0-12.0); Neutrophils % (auto) 67.6 % (37.0-80.0); Nucleated Red Blood Cells % 0.8 %; Red Blood Cells 3.39 10^6/uL (4.0-5.20); Red Cell Distribution Width 19.2 % (11.8-14.3)
[2024-10-20 06:01] LABS: BUN/Creatinine Ratio 15.3 (10.0-20.0)
[2024-10-20 06:07] LABS: Blood Urea Nitrogen 29 mg/dL (9-23); Calcium 8.4 mg/dL (8.7-10.4); Carbon Dioxide 19 mmol/L (20-31); Chloride 115 mmol/L (98-107); Glucose 168 mg/dL (74-106); Potassium 3.4 mmol/L (3.5-5.1)
--- NOTE | 2024-10-20 09:17 | DVHPN2 ---
Progress Note - Dictate Date Seen: Oct 20, 2024 Medical Necessity Reason Pt with a Central, PICC or Fol: No The following are medically ne: Issa Catheter Subjective Patient is still in DO you She is off the Levophed Patient is receiving dopamine for renal perfusion; creatinine down to 1.89 Patient also received albumin Patient is receiving lactulose 30 mL every 6 hours She had one formed bowel movement yesterday and none reported last night There was no nausea vomiting abdominal pain or GI bleeding ; hemoglobin stable at 8.7 Patient is still fairly lethargic and weak She is noted to have increasing abdominal distention and firmness A paracentesis fluid showed 214 WBC mostly mononuclear cells which does not meet criteria for spontaneous bacterial peritonitis vital signs Vital Sign Date Time Temp Pulse Resp B/P (MAP) Pulse Ox O2 Delivery O2 Flow Rate FiO2 10/20/24 08:45 106 10 96/65 (75) 94 10/20/24 08:00 Room Air* 0 21 10/20/24 07:30 98.2 98.2 Total Intake and Output 10/19/24 10/19/24 10/20/24 15:00 23:00 07:00 Intake Total 735.75 ml 1296 ml 1066 ml Output Total 400 ml Balance 735.75 ml 896 ml 1066 ml medications Current Medications Medications Dose Ordered Sig/Leti Route Start Time Stop Time Status Last Admin Dose Admin Nitroglycerin 0.4 mg Q5MINP PRN SL 10/14/24 14:30 Morphine Sulfate 2 mg Q30M PRN IV 10/14/24 14:30 Rifaximin 550 mg BID PO 10/14/24 22:00 10/19/24 22:20 550 MG Ondansetron HCl 4 mg Q4HPRN PRN IV 10/14/24 14:30 10/15/24 12:07 4 MG Acetaminophen 650 mg Q4HP PRN PO 10/14/24 14:30 10/15/24 12:07 650 MG Pantoprazole Sodium 40 mg BID IV 10/14/24 22:00 10/19/24 22:20 40 MG Iron Sucrose 110 ml @ 110 mls/hr DAILY@1200 IV 10/17/24 12:00 10/21/24 12:59 10/19/24 12:10 110 MLS/HR Midodrine 10 mg TID@0600,1200,1800 PO 10/17/24 10:45 10/20/24 06:04 10 MG Octreotide Acetate 100 mcg TID SUBCUT 10/17/24 14:00 10/20/24 06:04 100 MCG Norepinephrine Bitartrate 250 ml @ 3.75 mls/hr Q24H IV 10/18/24 12:45 10/18/24 12:45 3.75 MLS/HR Ceftriaxone Sodium 50 ml @ 100 mls/hr DAILY@09 IV 10/19/24 09:00 10/20/24 08:19 100 MLS/HR Sodium Bicarbonate 50 ml/ Dextrose 1,050 ml @ 100 mls/hr [id number] IV 10/19/24 10:15 10/20/24 08:44 100 MLS/HR Dopamine HCl/ Dextrose 250 ml @ 5.25 mls/hr Q24H IV 10/19/24 11:15 10/19/24 11:40 5.25 MLS/HR Lactulose 30 ml Q6H PO 10/19/24 14:00 10/20/24 08:19 30 ML objective Elderly thin female in bed comfortable alert awake oriented to self only. HEENT notable for poor dentition. Pupils equal round react to light. Neck supple no JVD. Lungs fair air movement chest tube will expansion. No wheezing noted Heart regular rate and rhythm S1 plus S2 without audible murmurs. Abdomen is distended. Tympanic to palpation. Nontender. Positive bowel sounds. Extremities trace edema around the ankles. Chronic venous stasis noted around the ankles/calf region in lower extremities. No focal neurological deficits noted laboratory and microbiology Laboratory Tests 10/20/24 04:45 Test 10/20/24 04:45 Range/Units Serum Glucose 168 H 74-106 mg/dL Problems(with codes): (1) Acute renal failure (2) Hypotension (3) Hyperammonemia (4) Thrombocytopenia (5) Liver cirrhosis (6) Ascites (7) Anemia (8) Hepatic encephalopathy Prognosis Plan Increase lactulose to 30 mL every 4 hours until she has diarrhea and then decrease it back to 30 mL p.o. q.8 hours Patient will likely need repeat paracentesis in the next 24-48 hours Continue supportive care Soft diet as tolerated Dietary Evaluation Review Comments: Encourage feeding and increase PO intake to meet 75% of her needs. Consider nutrition supplementation after further assessment of her kidney function. Expected Outcomes/Goals: Improved nutrition status and gradual weight gains. Plan discussed with: Patient, Other ([facility] Nurse) LINA DIAZ MD Oct 20, 2024 09:17
[2024-10-20] MEDS: LACTULOSE 20Gm/30ML SOLN PO SCH (12:07)
--- NOTE | 2024-10-20 16:41 | DVHPN2 ---
Progress Note Date Seen: Oct 20, 2024 Medical Necessity Reason Pt with a Central, PICC or Fol: No The following are medically ne: Issa Catheter Subjective Patient reports: No new complaints Other Systems: Patient seen and examined by myself in follow-up today Objective vital signs Vital Sign Date Time Temp Pulse Resp B/P (MAP) Pulse Ox O2 Delivery O2 Flow Rate FiO2 10/20/24 14:13 98.3 94 16 103/66 (78) 93 98.3 10/20/24 12:00 Room Air* 0 21 Total Intake and Output 10/19/24 10/19/24 10/20/24 15:00 23:00 07:00 Intake Total 735.75 ml 1296 ml 1066 ml Output Total 400 ml Balance 735.75 ml 896 ml 1066 ml medications Current Medications Medications Dose Ordered Sig/Leti Route Start Time Stop Time Status Last Admin Dose Admin Nitroglycerin 0.4 mg Q5MINP PRN SL 10/14/24 14:30 Morphine Sulfate 2 mg Q30M PRN IV 10/14/24 14:30 Rifaximin 550 mg BID PO 10/14/24 22:00 10/20/24 09:52 550 MG Ondansetron HCl 4 mg Q4HPRN PRN IV 10/14/24 14:30 10/15/24 12:07 4 MG Acetaminophen 650 mg Q4HP PRN PO 10/14/24 14:30 10/15/24 12:07 650 MG Pantoprazole Sodium 40 mg BID IV 10/14/24 22:00 10/20/24 09:53 40 MG Iron Sucrose 110 ml @ 110 mls/hr DAILY@1200 IV 10/17/24 12:00 10/21/24 12:59 10/20/24 12:06 110 MLS/HR Midodrine 10 mg TID@0600,1200,1800 PO 10/17/24 10:45 10/20/24 12:06 10 MG Octreotide Acetate 100 mcg TID SUBCUT 10/17/24 14:00 10/20/24 15:30 100 MCG Norepinephrine Bitartrate 250 ml @ 3.75 mls/hr Q24H IV 10/18/24 12:45 10/18/24 12:45 3.75 MLS/HR Ceftriaxone Sodium 50 ml @ 100 mls/hr DAILY@09 IV 10/19/24 09:00 10/20/24 08:19 100 MLS/HR Sodium Bicarbonate 50 ml/ Dextrose 1,050 ml @ 100 mls/hr [id number] IV 10/19/24 10:15 10/20/24 08:44 100 MLS/HR Dopamine HCl/ Dextrose 250 ml @ 5.25 mls/hr Q24H IV 10/19/24 11:15 10/20/24 12:05 5.25 MLS/HR Lactulose 30 ml Q4HR PO 10/20/24 12:00 10/20/24 15:22 30 ML Examination: LUNGS:Normal, CVS:Normal, MSK:Normal laboratory and microbiology Laboratory Tests 10/20/24 04:45 Test 10/20/24 04:45 Range/Units Serum Glucose 168 H 74-106 mg/dL Microbiology Date/Time Source Procedure Growth Status 10/18/24 16:31 Blood Blood Culture - Preliminary NO GROWTH AFTER 24 HOURS OF INCUBATION. Resulted 10/17/24 10:25 Ascities Fluid Gram Stain - Final Resulted 10/17/24 10:25 Ascities Fluid Body Fluid Culture - Preliminary Resulted 10/14/24 19:05 Urine - Midstream Clean Catch Urine Culture - Final Complete Problem List/Assessment/Plan Problem List/Assessment/Plan Acute kidney injury secondary hemodynamic mediated, FeNa < 1% hepatorenal syndrome Cirrhosis due to liver disease with large volume ascites Anemia likely due to blood loss Metabolic acidosis Thrombocytopenia Hepatic encephalopathy Hypoalbuminemia Hypernatremia due to dehydration Recommendations Kidney function continues to improve Increased urine output Issa catheter Strict I&Os IVF D5W with sodium bicarb 50 mEq/L at 100 cc/hour KCL replacement Low-dose dopamine Octreotide Midodrine Avoid hypotension IV albumin completed Paracentesis Strict Is&Os Continue to follow up Plan discussed with: Patient Dietary Evaluation Review Comments: Encourage feeding and increase PO intake to meet 75% of her needs. Consider nutrition supplementation after further assessment of her kidney function. Expected Outcomes/Goals: Improved nutrition status and gradual weight gains. ZAINAB QUIJANO MD Oct 20, 2024 16:41
[2024-10-20] MEDS: POTASSIUM CHL 20MEQ/100ML 100 ML IV SCH (17:45)
--- NOTE | 2024-10-20 21:58 | DVHPN2 ---
Progress Note - Dictate Date Seen: Oct 20, 2024 Medical Necessity Reason Pt with a Central, PICC or Fol: No The following are medically ne: Issa Catheter Subjective Comfortable in bed. No complaints. Daughter is at bedside. I then had significant bowel movements. Ammonia log still elevated. vital signs Vital Sign Date Time Temp Pulse Resp B/P (MAP) Pulse Ox O2 Delivery O2 Flow Rate FiO2 10/20/24 21:29 97.5 83 17 122/76 (91) 94 97.5 10/20/24 20:00 Room Air* 0 21 Total Intake and Output 10/19/24 10/19/24 10/20/24 15:00 23:00 07:00 Intake Total 735.75 ml 1296 ml 1066 ml Output Total 400 ml Balance 735.75 ml 896 ml 1066 ml medications Current Medications Medications Dose Ordered Sig/Leti Route Start Time Stop Time Status Last Admin Dose Admin Nitroglycerin 0.4 mg Q5MINP PRN SL 10/14/24 14:30 Morphine Sulfate 2 mg Q30M PRN IV 10/14/24 14:30 Rifaximin 550 mg BID PO 10/14/24 22:00 10/20/24 09:52 550 MG Ondansetron HCl 4 mg Q4HPRN PRN IV 10/14/24 14:30 10/15/24 12:07 4 MG Acetaminophen 650 mg Q4HP PRN PO 10/14/24 14:30 10/15/24 12:07 650 MG Pantoprazole Sodium 40 mg BID IV 10/14/24 22:00 10/20/24 09:53 40 MG Iron Sucrose 110 ml @ 110 mls/hr DAILY@1200 IV 10/17/24 12:00 10/21/24 12:59 10/20/24 12:06 110 MLS/HR Midodrine 10 mg TID@0600,1200,1800 PO 10/17/24 10:45 10/20/24 18:47 10 MG Octreotide Acetate 100 mcg TID SUBCUT 10/17/24 14:00 10/20/24 15:30 100 MCG Norepinephrine Bitartrate 250 ml @ 3.75 mls/hr Q24H IV 10/18/24 12:45 10/18/24 12:45 3.75 MLS/HR Ceftriaxone Sodium 50 ml @ 100 mls/hr DAILY@09 IV 10/19/24 09:00 10/20/24 08:19 100 MLS/HR Sodium Bicarbonate 50 ml/ Dextrose 1,050 ml @ 100 mls/hr [id number] IV 10/19/24 10:15 10/20/24 08:44 100 MLS/HR Dopamine HCl/ Dextrose 250 ml @ 5.25 mls/hr Q24H IV 10/19/24 11:15 10/20/24 12:05 5.25 MLS/HR Lactulose 30 ml Q4HR PO 10/20/24 12:00 10/20/24 15:22 30 ML objective Alert and awake knows her name. Daughter at bedside. Heart regular rate and rhythm S1-S2. Lungs fair air movement poor inspiratory effort. Abdomen soft nontender positive bowel sounds. Extremities no edema. laboratory and microbiology Laboratory Tests 10/20/24 04:45 Test 10/20/24 04:45 Range/Units Serum Glucose 168 H 74-106 mg/dL Assessment/Plan No changes to present management. Continue current antibiotics and rest of supportive care and treatment as she is on. We will increase lactulose frequency due to elevated ammonia levels. Once again discussed with the patient and her daughter along with the nurse at bedside regarding her overall guarded condition with the end-stage liver disease. Further clinical management per clinical course and recommendations from the consultants. Problems(with codes): (1) Acute renal failure (2) Hyperammonemia (3) Thrombocytopenia (4) Liver cirrhosis (5) Ascites (6) Hepatic encephalopathy Dietary Evaluation Review Comments: Encourage feeding and increase PO intake to meet 75% of her needs. Consider nutrition supplementation after further assessment of her kidney function. Expected Outcomes/Goals: Improved nutrition status and gradual weight gains. Plan discussed with: Daughter, Other ABHISHEK FINE MD Oct 20, 2024 21:58
--- NOTE | 2024-10-20 23:11 | DVHPN2 ---
Progress Note - Dictate Date Seen: Oct 20, 2024 Medical Necessity Reason Pt with a Central, PICC or Fol: No The following are medically ne: Issa Catheter Subjective Patient seen and examined at bedside. Breathing comfortably on room air. Overnight events reviewed. vital signs Vital Sign Date Time Temp Pulse Resp B/P (MAP) Pulse Ox O2 Delivery O2 Flow Rate FiO2 10/20/24 21:29 97.5 83 17 122/76 (91) 94 97.5 10/20/24 20:00 Room Air* 0 21 Total Intake and Output 10/19/24 10/19/24 10/20/24 15:00 23:00 07:00 Intake Total 735.75 ml 1296 ml 1066 ml Output Total 400 ml Balance 735.75 ml 896 ml 1066 ml medications Current Medications Medications Dose Ordered Sig/Leti Route Start Time Stop Time Status Last Admin Dose Admin Nitroglycerin 0.4 mg Q5MINP PRN SL 10/14/24 14:30 Morphine Sulfate 2 mg Q30M PRN IV 10/14/24 14:30 Rifaximin 550 mg BID PO 10/14/24 22:00 10/20/24 09:52 550 MG Ondansetron HCl 4 mg Q4HPRN PRN IV 10/14/24 14:30 10/15/24 12:07 4 MG Acetaminophen 650 mg Q4HP PRN PO 10/14/24 14:30 10/15/24 12:07 650 MG Pantoprazole Sodium 40 mg BID IV 10/14/24 22:00 10/20/24 09:53 40 MG Iron Sucrose 110 ml @ 110 mls/hr DAILY@1200 IV 10/17/24 12:00 10/21/24 12:59 10/20/24 12:06 110 MLS/HR Midodrine 10 mg TID@0600,1200,1800 PO 10/17/24 10:45 10/20/24 18:47 10 MG Octreotide Acetate 100 mcg TID SUBCUT 10/17/24 14:00 10/20/24 15:30 100 MCG Norepinephrine Bitartrate 250 ml @ 3.75 mls/hr Q24H IV 10/18/24 12:45 10/18/24 12:45 3.75 MLS/HR Ceftriaxone Sodium 50 ml @ 100 mls/hr DAILY@09 IV 10/19/24 09:00 10/20/24 08:19 100 MLS/HR Sodium Bicarbonate 50 ml/ Dextrose 1,050 ml @ 100 mls/hr [id number] IV 10/19/24 10:15 10/20/24 08:44 100 MLS/HR Dopamine HCl/ Dextrose 250 ml @ 5.25 mls/hr Q24H IV 10/19/24 11:15 10/20/24 12:05 5.25 MLS/HR Lactulose 30 ml Q4HR PO 10/20/24 12:00 10/20/24 15:22 30 ML objective Gen.: Patient lying in bed in no apparent distress. Breathing on room air. Head: Normocephalic, atraumatic. Eyes: EOMI/PERRLA. Ears: Normal hearing. Normal anatomy. Neck/trachea: Trachea midline, supple. Nose: Normal external anatomy. Mouth: Moist mucous membranes. Chest: Decreased air entry bilaterally. No wheezing or rhonchi. Cardiovascular: Positive S1, positive S2. Regular rate and rhythm. Abdomen: Positive bowel sounds in all 4 quadrants. Soft, non-tender, non- distended. : Deferred. Rectal: Deferred. Skin: Warm, dry. Intact. Extremities: 2+ radial pulses bilaterally. No lower extremity edema. Neuro: Awake, alert, oriented x3. No gross motor or sensory deficits. Cranial nerves II through XII intact. Gait not assessed. laboratory and microbiology Laboratory Tests 10/20/24 04:45 Test 10/20/24 04:45 Range/Units Serum Glucose 168 H 74-106 mg/dL Assessment/Plan Impression: Hepatic encephalopathy Anemia Ascites Liver cirrhosis Thrombocytopenia Hyperammonemia Events: Breathing on room air No respiratory distress. On dopamine drip 2 mcg/min for renal dosing. Titrate to keep mean arterial pressure greater than 65 mmHg. On bicarb drip. Nausea/vomiting - Reglan/antiemetics. Lactulose q.4 hours Monitor abdomen for fluid buildup. Patient is NPO Continue abx Head of bed elevation Aspiration precautions Iron supplementation Monitor hemoglobin Labs and imaging reviewed. Rest of plan as noted below. Plan: Supplemental oxygen PRN Titrate to keep O2 sats above 92%. 10/17 - Patient underwent ultrasound-guided paracentesis by IR with removal of 7.1 L ascitic fluid. Monitor hemoglobin Monitor abdominal distension. On lactulose. Monitor renal function. Monitor electrolytes. Supplement as necessary. Monitor ins and outs. GI prophylaxis - Protonix DVT prophylaxis. Prognosis: Poor given patient's multiple co-morbidities. Condition: Critical Rest of plan per hospitalist and other consultants. A total of 35 minutes of critical care time was spent reviewing the patient record, examining the patient, making a diagnostic and therapeutic plan, discussing this plan with the medical personnel, following up on diagnostic studies and following the patient for clinical stability excluding any and all procedures. At least 50% of this time was spent in direct, [id number] contact. Thank you, Dr. Ragsdale, for allowing me to participate in this patient's care. Further recommendations will depend on the patient's clinical course. Please do not hesitate to contact me if you have any questions or concerns. This medical document was created using an electronic medical record system with [employer] dictation system. Although these documentations are being carefully reviewed, there may still be some phonetic and typographical changes. The errors are purely typographical, due to imperfection on the software program, and do not reflect any compromise in the patient's medical care. Dietary Evaluation Review Comments: Encourage feeding and increase PO intake to meet 75% of her needs. Consider nutrition supplementation after further assessment of her kidney function. Expected Outcomes/Goals: Improved nutrition status and gradual weight gains. Plan discussed with: Patient, Other (GLADYS Siegel) Critical Care Time(min): 35 SCOTT NELSON MD Oct 20, 2024 23:11
[2024-10-21] VITALS (9 sets, daily range): BP systolic 99–146; BP diastolic 59–87; PULSE 61–91; RESP 15–18; TEMP 94.2–97.5; O2SAT 95–100
--- NOTE | 2024-10-21 07:14 | DVH ---
ULTRASOUND ABDOMEN limited, 4 QUADRANTS INDICATION: EVAL ASCITES Evaluate for ascites. TECHNIQUE: The four quadrants of the abdomen were scanned in godinez-scale to assess for the presence of ascites. N o solid organ assessment was performed. FINDINGS/IMPRESSIONS: There is large volume 4 quadrant ascites.
--- NOTE | 2024-10-21 11:14 | DVH ---
US PARACENTESIS, HISTORY: ASCITES PROCEDURE: Informed consent was obtained. The patient was placed in supine position. A limited locali zation ultrasound of the abdomen was obtained, and the skin site over the largest pocket of fluid was marked and entry site was prepped with chlorhexidine which was allowed to dry and draped in the usua l sterile fashion. Time out was performed. Following administration of 1% lidocaine local anesthetic, a 5 Nigerian centesis needle catheter was percutaneously inserted into the peritoneal collection until fluid was aspirated. The catheter was advanced into the fluid collection and the needle removed. Abo ut 6950 cc of fluid was aspirated and specimen sent for appropriate cultures/cytology/cultures and cy tology. The catheter was then removed and a sterile dressing applied. No immediate complication was identified. FINDINGS: Limited ultrasound imaging demonstrates moderate ascites. Aspirated fluid was clear and ser ous. IMPRESSION: US-guided paracentesis with 7L removed.
--- NOTE | 2024-10-21 14:52 | DVHPN2 ---
Progress Note Date Seen: Oct 21, 2024 Medical Necessity Reason Pt with a Central, PICC or Fol: No The following are medically ne: Issa Catheter Subjective Patient reports: No new complaints Other Systems: Patient seen and examined by myself on follow-up today Objective vital signs Vital Sign Date Time Temp Pulse Resp B/P (MAP) Pulse Ox O2 Delivery O2 Flow Rate FiO2 10/21/24 12:59 94.2 69 16 137/77 (97) 98 94.2 10/20/24 20:00 Room Air* 0 21 Total Intake and Output 10/20/24 10/20/24 10/21/24 15:00 23:00 07:00 Intake Total 466 ml 783.9 ml 1163 ml Output Total 120 ml Balance 466 ml 663.9 ml 1163 ml medications Current Medications Medications Dose Ordered Sig/Leti Route Start Time Stop Time Status Last Admin Dose Admin Nitroglycerin 0.4 mg Q5MINP PRN SL 10/14/24 14:30 Morphine Sulfate 2 mg Q30M PRN IV 10/14/24 14:30 Rifaximin 550 mg BID PO 10/14/24 22:00 10/21/24 12:49 550 MG Ondansetron HCl 4 mg Q4HPRN PRN IV 10/14/24 14:30 10/21/24 06:26 4 MG Acetaminophen 650 mg Q4HP PRN PO 10/14/24 14:30 10/15/24 12:07 650 MG Pantoprazole Sodium 40 mg BID IV 10/14/24 22:00 10/21/24 12:49 40 MG Midodrine 10 mg TID@0600,1200,1800 PO 10/17/24 10:45 10/21/24 06:26 10 MG Octreotide Acetate 100 mcg TID SUBCUT 10/17/24 14:00 10/21/24 06:36 100 MCG Norepinephrine Bitartrate 250 ml @ 3.75 mls/hr Q24H IV 10/18/24 12:45 10/18/24 12:45 3.75 MLS/HR Ceftriaxone Sodium 50 ml @ 100 mls/hr DAILY@09 IV 10/19/24 09:00 10/21/24 12:49 100 MLS/HR Sodium Bicarbonate 50 ml/ Dextrose 1,050 ml @ 100 mls/hr [id number] IV 10/19/24 10:15 12/20/24 01:51 100 MLS/HR Dopamine HCl/ Dextrose 250 ml @ 5.25 mls/hr Q24H IV 10/19/24 11:15 10/20/24 12:05 5.25 MLS/HR Lactulose 30 ml Q4HR PO 10/20/24 12:00 10/21/24 06:26 30 ML Examination: LUNGS:Normal, CVS:Normal, MSK:Normal laboratory and microbiology Laboratory Tests 10/20/24 04:45 Test 10/20/24 04:45 Range/Units Serum Glucose 168 H 74-106 mg/dL Microbiology Date/Time Source Procedure Growth Status 10/18/24 16:31 Blood Blood Culture - Preliminary NO GROWTH AFTER 48 HOURS OF INCUBATION. Resulted 10/17/24 10:25 Ascities Fluid Gram Stain - Final Resulted 10/17/24 10:25 Ascities Fluid Body Fluid Culture - Preliminary Resulted 10/14/24 19:05 Urine - Midstream Clean Catch Urine Culture - Final Complete Problem List/Assessment/Plan Problem List/Assessment/Plan Acute kidney injury secondary hemodynamic mediated, FeNa < 1% hepatorenal syndrome Cirrhosis due to liver disease with large volume ascites Anemia likely due to blood loss Metabolic acidosis Thrombocytopenia Hepatic encephalopathy Hypoalbuminemia Hypernatremia due to dehydration Recommendations Kidney function continues to improve Increased urine output Issa catheter Strict I&Os IVF D5W with sodium bicarb 50 mEq/L at 100 cc/hour KCL replacement Low-dose dopamine Octreotide Midodrine Avoid hypotension IV albumin completed Paracentesis Strict Is&Os Continue to follow up Plan discussed with: Patient Dietary Evaluation Review Comments: Encourage feeding and increase PO intake to meet 75% of her needs. Consider nutrition supplementation after further assessment of her kidney function. Expected Outcomes/Goals: Improved nutrition status and gradual weight gains. ZAINAB QUIJANO MD Oct 21, 2024 14:51
--- NOTE | 2024-10-21 16:08 | DVHPN2 ---
Progress Note - Dictate Date Seen: Oct 21, 2024 Medical Necessity Reason Pt with a Central, PICC or Fol: No The following are medically ne: Issa Catheter Subjective Comfortable in bed. Alert and awake. Follow simple commands. Nurse noted her to be hypothermic today. vital signs Vital Sign Date Time Temp Pulse Resp B/P (MAP) Pulse Ox O2 Delivery O2 Flow Rate FiO2 10/21/24 12:59 94.2 69 16 137/77 (97) 98 94.2 10/21/24 08:15 Room Air* 0 21 Total Intake and Output 10/20/24 10/20/24 10/21/24 15:00 23:00 07:00 Intake Total 466 ml 783.9 ml 1163 ml Output Total 120 ml Balance 466 ml 663.9 ml 1163 ml medications Current Medications Medications Dose Ordered Sig/Leti Route Start Time Stop Time Status Last Admin Dose Admin Nitroglycerin 0.4 mg Q5MINP PRN SL 10/14/24 14:30 Morphine Sulfate 2 mg Q30M PRN IV 10/14/24 14:30 Rifaximin 550 mg BID PO 10/14/24 22:00 10/21/24 12:49 550 MG Ondansetron HCl 4 mg Q4HPRN PRN IV 10/14/24 14:30 10/21/24 06:26 4 MG Acetaminophen 650 mg Q4HP PRN PO 10/14/24 14:30 10/15/24 12:07 650 MG Pantoprazole Sodium 40 mg BID IV 10/14/24 22:00 10/21/24 12:49 40 MG Midodrine 10 mg TID@0600,1200,1800 PO 10/17/24 10:45 10/21/24 06:26 10 MG Octreotide Acetate 100 mcg TID SUBCUT 10/17/24 14:00 10/21/24 15:11 100 MCG Norepinephrine Bitartrate 250 ml @ 3.75 mls/hr Q24H IV 10/18/24 12:45 10/18/24 12:45 3.75 MLS/HR Ceftriaxone Sodium 50 ml @ 100 mls/hr DAILY@09 IV 10/19/24 09:00 10/21/24 12:49 100 MLS/HR Sodium Bicarbonate 50 ml/ Dextrose 1,050 ml @ 100 mls/hr [id number] IV 10/19/24 10:15 10/21/24 01:51 100 MLS/HR Dopamine HCl/ Dextrose 250 ml @ 5.25 mls/hr Q24H IV 10/19/24 11:15 10/20/24 12:05 5.25 MLS/HR Lactulose 30 ml Q4HR PO 10/20/24 12:00 10/21/24 15:07 30 ML objective Alert and awake knows her name. No acute cardiopulmonary distress. Heart regular rate and rhythm S1-S2. Lungs fair air movement poor inspiratory effort. Abdomen soft nontender positive bowel sounds. Extremities no edema. laboratory and microbiology Laboratory Tests 10/20/24 04:45 Test 10/20/24 04:45 Range/Units Serum Glucose 168 H 74-106 mg/dL Assessment/Plan Josefina Hugger for hypothermia. Etiology unclear at present. Her recent blood cultures are negative for any infectious etiology. Ammonia level is improved. Continue present management. Physical therapy evaluation. Further clinical management per clinical course. Discussed with the nurse regarding care plan. Dietary Evaluation Review Comments: Encourage feeding and increase PO intake to meet 75% of her needs. Consider nutrition supplementation after further assessment of her kidney function. Expected Outcomes/Goals: Improved nutrition status and gradual weight gains. Plan discussed with: Patient, Other ABHISHEK FINE MD Oct 21, 2024 16:08
--- NOTE | 2024-10-21 16:50 | DVHPN2 ---
Progress Note - Dictate Date Seen: Oct 21, 2024 Medical Necessity Reason Pt with a Central, PICC or Fol: No The following are medically ne: Issa Catheter Subjective Patient is downgraded to floor She appears clinically improved Patient underwent paracentesis with removal of 7 L of fluid Renal function improving Ammonia level is improved down to 72 Patient is receiving lactulose 30 mL every 4 hours ; one bowel movement recorded There was no nausea vomiting abdominal pain or GI bleeding ; hemoglobin stable at 8.7 vital signs Vital Sign Date Time Temp Pulse Resp B/P (MAP) Pulse Ox O2 Delivery O2 Flow Rate FiO2 10/21/24 12:59 94.2 69 16 137/77 (97) 98 94.2 10/21/24 08:15 Room Air* 0 21 Total Intake and Output 10/20/24 10/20/24 10/21/24 15:00 23:00 07:00 Intake Total 466 ml 783.9 ml 1163 ml Output Total 120 ml Balance 466 ml 663.9 ml 1163 ml medications Current Medications Medications Dose Ordered Sig/Leti Route Start Time Stop Time Status Last Admin Dose Admin Nitroglycerin 0.4 mg Q5MINP PRN SL 10/14/24 14:30 Morphine Sulfate 2 mg Q30M PRN IV 10/14/24 14:30 Rifaximin 550 mg BID PO 10/14/24 22:00 10/21/24 12:49 550 MG Ondansetron HCl 4 mg Q4HPRN PRN IV 10/14/24 14:30 10/21/24 06:26 4 MG Acetaminophen 650 mg Q4HP PRN PO 10/14/24 14:30 10/15/24 12:07 650 MG Pantoprazole Sodium 40 mg BID IV 10/14/24 22:00 10/21/24 12:49 40 MG Midodrine 10 mg TID@0600,1200,1800 PO 10/17/24 10:45 10/21/24 06:26 10 MG Octreotide Acetate 100 mcg TID SUBCUT 10/17/24 14:00 10/21/24 15:11 100 MCG Norepinephrine Bitartrate 250 ml @ 3.75 mls/hr Q24H IV 10/18/24 12:45 10/18/24 12:45 3.75 MLS/HR Ceftriaxone Sodium 50 ml @ 100 mls/hr DAILY@09 IV 10/19/24 09:00 10/21/24 12:49 100 MLS/HR Lactulose 30 ml Q4HR PO 10/20/24 12:00 10/21/24 15:07 30 ML Sodium Bicarbonate 50 ml/ Dextrose 1,050 ml @ 60 mls/hr [id number] IV 10/21/24 16:30 objective Elderly thin female in bed comfortable alert awake oriented to self only. HEENT notable for poor dentition. Pupils equal round react to light. Neck supple no JVD. Lungs fair air movement chest tube will expansion. No wheezing noted Heart regular rate and rhythm S1 plus S2 without audible murmurs. Abdomen is distended. Tympanic to palpation. Nontender. Positive bowel sounds. Extremities trace edema around the ankles. Chronic venous stasis noted around the ankles/calf region in lower extremities. No focal neurological deficits noted laboratory and microbiology Laboratory Tests 10/20/24 04:45 Test 10/20/24 04:45 Range/Units Serum Glucose 168 H 74-106 mg/dL Problems(with codes): (1) Acute renal failure (2) Hypotension (3) Hyperammonemia (4) Thrombocytopenia (5) Liver cirrhosis (6) Ascites (7) Anemia (8) Hepatic encephalopathy Prognosis Plan Continue supportive care Prognosis guarded Start physical therapy Continue current medical management Awaiting management of hypothermia Dietary Evaluation Review Comments: Encourage feeding and increase PO intake to meet 75% of her needs. Consider nutrition supplementation after further assessment of her kidney function. Expected Outcomes/Goals: Improved nutrition status and gradual weight gains. Plan discussed with: Patient, Daughter LINA DIAZ MD Oct 21, 2024 16:50
[2024-10-21] MEDS: SODIUM BICARB 50mEq/50ml Vial 50 ML in D5W 5% 1,000 ML IV SCH (17:35)
--- NOTE | 2024-10-21 23:10 | DVHPN2 ---
Progress Note - Dictate Date Seen: Oct 21, 2024 Medical Necessity Reason Pt with a Central, PICC or Fol: No The following are medically ne: Issa Catheter Subjective Patient seen and examined at bedside. Breathing comfortably on room air. Overnight events reviewed. vital signs Vital Sign Date Time Temp Pulse Resp B/P (MAP) Pulse Ox O2 Delivery O2 Flow Rate FiO2 10/21/24 16:46 94.3 61 17 129/72 (91) 98 94.3 10/21/24 08:15 Room Air* 0 21 Total Intake and Output 10/20/24 10/20/24 10/21/24 15:00 23:00 07:00 Intake Total 466 ml 783.9 ml 1163 ml Output Total 120 ml Balance 466 ml 663.9 ml 1163 ml medications Current Medications Medications Dose Ordered Sig/Leti Route Start Time Stop Time Status Last Admin Dose Admin Nitroglycerin 0.4 mg Q5MINP PRN SL 10/14/24 14:30 Morphine Sulfate 2 mg Q30M PRN IV 10/14/24 14:30 Rifaximin 550 mg BID PO 10/14/24 22:00 10/21/24 21:36 550 MG Ondansetron HCl 4 mg Q4HPRN PRN IV 10/14/24 14:30 10/21/24 06:26 4 MG Acetaminophen 650 mg Q4HP PRN PO 10/14/24 14:30 10/15/24 12:07 650 MG Pantoprazole Sodium 40 mg BID IV 10/14/24 22:00 10/21/24 21:38 40 MG Midodrine 10 mg TID@0600,1200,1800 PO 10/17/24 10:45 10/21/24 06:26 10 MG Octreotide Acetate 100 mcg TID SUBCUT 10/17/24 14:00 10/21/24 21:37 100 MCG Norepinephrine Bitartrate 250 ml @ 3.75 mls/hr Q24H IV 10/18/24 12:45 10/18/24 12:45 3.75 MLS/HR Ceftriaxone Sodium 50 ml @ 100 mls/hr DAILY@09 IV 10/19/24 09:00 10/21/24 12:49 100 MLS/HR Lactulose 30 ml Q4HR PO 10/20/24 12:00 10/21/24 21:38 30 ML Sodium Bicarbonate 50 ml/ Dextrose 1,050 ml @ 60 mls/hr [id number] IV 10/21/24 16:30 10/21/24 17:35 60 MLS/HR objective Gen.: Patient lying in bed in no apparent distress. Breathing on room air. Head: Normocephalic, atraumatic. Eyes: EOMI/PERRLA. Ears: Normal hearing. Normal anatomy. Neck/trachea: Trachea midline, supple. Nose: Normal external anatomy. Mouth: Moist mucous membranes. Chest: Decreased air entry bilaterally. No wheezing or rhonchi. Cardiovascular: Positive S1, positive S2. Regular rate and rhythm. Abdomen: Positive bowel sounds in all 4 quadrants. Soft, non-tender, non- distended. : Deferred. Rectal: Deferred. Skin: Warm, dry. Intact. Extremities: 2+ radial pulses bilaterally. No lower extremity edema. Neuro: Awake, alert, oriented x3. No gross motor or sensory deficits. Cranial nerves II through XII intact. Gait not assessed. laboratory and microbiology Laboratory Tests 10/20/24 04:45 Test 10/20/24 04:45 Range/Units Serum Glucose 168 H 74-106 mg/dL Assessment/Plan Impression: Hepatic encephalopathy Anemia Ascites Liver cirrhosis Thrombocytopenia Hyperammonemia Events: Breathing on room air No respiratory distress. Off dopamine drip Continue abx Rifaximin On midodrine Lactulose q.4 hours Monitor abdomen for fluid buildup. Patient is NPO S/p paracentesis with 7 liters removed. Head of bed elevation Aspiration precautions Iron supplementation Monitor hemoglobin Potassium supplementation Monitor renal function. Monitor electrolytes. Supplement as necessary. 10/17 - S/p ultrasound-guided paracentesis by IR with removal of 7.1 L ascitic fluid. Labs and imaging reviewed. Rest of plan as noted below. Plan: Supplemental oxygen PRN Titrate to keep O2 sats above 92%. Monitor hemoglobin Monitor abdominal distension. On lactulose. Monitor renal function. Monitor electrolytes. Supplement as necessary. Monitor ins and outs. GI prophylaxis - Protonix DVT prophylaxis. Prognosis: Poor given patient's multiple co-morbidities. Condition: Critical Rest of plan per hospitalist and other consultants. A total of 35 minutes of critical care time was spent reviewing the patient record, examining the patient, making a diagnostic and therapeutic plan, discussing this plan with the medical personnel, following up on diagnostic studies and following the patient for clinical stability excluding any and all procedures. At least 50% of this time was spent in direct, [id number] contact. Thank you, Dr. Ragsdale, for allowing me to participate in this patient's care. Further recommendations will depend on the patient's clinical course. Please do not hesitate to contact me if you have any questions or concerns. This medical document was created using an electronic medical record system with [employer] dictation system. Although these documentations are being carefully reviewed, there may still be some phonetic and typographical changes. The errors are purely typographical, due to imperfection on the software program, and do not reflect any compromise in the patient's medical care. Dietary Evaluation Review Comments: Encourage feeding and increase PO intake to meet 75% of her needs. Consider nutrition supplementation after further assessment of her kidney function. Expected Outcomes/Goals: Improved nutrition status and gradual weight gains. Plan discussed with: Other (GLADYS Grajeda) Critical Care Time(min): 35 SCOTT NELSON MD Oct 21, 2024 23:10
[2024-10-22] VITALS (8 sets, daily range): BP systolic 46–122; BP diastolic 59–75; PULSE 51–75; RESP 15–19; TEMP 91.6–97.3; O2SAT 96–100
--- NOTE | 2024-10-22 10:24 | DVHPN2 ---
Progress Note Date Seen: Oct 22, 2024 Medical Necessity Reason Pt with a Central, PICC or Fol: No The following are medically ne: Issa Catheter Subjective Patient reports: No new complaints Other Systems: PATIENT SEEN AND EXAMINED BY MYSELF ON FOLLOW-UP TODAY Objective vital signs Vital Sign Date Time Temp Pulse Resp B/P (MAP) Pulse Ox O2 Delivery O2 Flow Rate FiO2 10/22/24 09:00 91.6 59 15 122/75 (91) 98 91.6 10/21/24 20:00 Room Air* 0 21 Total Intake and Output 10/21/24 10/21/24 10/22/24 15:00 23:00 07:00 Intake Total 50 ml 1592.25 ml 100 ml Balance 50 ml 1592.25 ml 100 ml medications Current Medications Medications Dose Ordered Sig/Leti Route Start Time Stop Time Status Last Admin Dose Admin Nitroglycerin 0.4 mg Q5MINP PRN SL 10/14/24 14:30 Morphine Sulfate 2 mg Q30M PRN IV 10/14/24 14:30 Rifaximin 550 mg BID PO 10/14/24 22:00 10/22/24 10:03 550 MG Ondansetron HCl 4 mg Q4HPRN PRN IV 10/14/24 14:30 10/21/24 06:26 4 MG Acetaminophen 650 mg Q4HP PRN PO 10/14/24 14:30 10/15/24 12:07 650 MG Pantoprazole Sodium 40 mg BID IV 10/14/24 22:00 10/22/24 10:03 40 MG Midodrine 10 mg TID@0600,1200,1800 PO 10/17/24 10:45 10/22/24 05:43 10 MG Octreotide Acetate 100 mcg TID SUBCUT 10/17/24 14:00 10/22/24 05:43 100 MCG Norepinephrine Bitartrate 250 ml @ 3.75 mls/hr Q24H IV 10/18/24 12:45 10/18/24 12:45 3.75 MLS/HR Ceftriaxone Sodium 50 ml @ 100 mls/hr DAILY@09 IV 10/19/24 09:00 10/22/24 10:02 100 MLS/HR Lactulose 30 ml Q4HR PO 10/20/24 12:00 10/22/24 10:02 30 ML Sodium Bicarbonate 50 ml/ Dextrose 1,050 ml @ 60 mls/hr [id number] IV 10/21/24 16:30 10/22/24 10:04 60 MLS/HR Examination: LUNGS:Normal, CVS:Normal, MSK:Normal laboratory and microbiology Laboratory Tests 10/20/24 04:45 Test 10/20/24 04:45 Range/Units Serum Glucose 168 H 74-106 mg/dL Microbiology Date/Time Source Procedure Growth Status 10/18/24 16:31 Blood Blood Culture - Preliminary NO GROWTH AFTER 72 HOURS OF INCUBATION. 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 Consider nutrition supplementation after further assessment of her kidney function. Expected Outcomes/Goals: Improved nutrition status and gradual weight gains. ZAINAB QUIJANO MD Oct 22, 2024 10:24
[2024-10-22] MEDS: POTASSIUM EFFERVESENT TAB 25 MEQ PO ONE (11:31)
[2024-10-22 11:38] LABS: Lactic Acid w/Reflex 2.9 mmol/L (0.4-2.0)
[2024-10-22] MEDS: SODIUM CHLORIDE 0.9% 1,000 ML IV SCH ×2 (14:40→17:00)
--- NOTE | 2024-10-22 16:24 | DVHPN2 ---
Progress Note - Dictate Date Seen: Oct 22, 2024 Medical Necessity Reason Pt with a Central, PICC or Fol: No The following are medically ne: Issa Catheter Subjective Patient seen and examined at bedside. Breathing comfortably on room air. Overnight events reviewed. vital signs Vital Sign Date Time Temp Pulse Resp B/P (MAP) Pulse Ox O2 Delivery O2 Flow Rate FiO2 10/22/24 13:00 93.5 53 16 96/61 (73) 96 93.5 10/22/24 08:00 Room Air* 0 21 Total Intake and Output 10/21/24 10/21/24 10/22/24 15:00 23:00 07:00 Intake Total 50 ml 1592.25 ml 100 ml Balance 50 ml 1592.25 ml 100 ml medications Current Medications Medications Dose Ordered Sig/Leti Route Start Time Stop Time Status Last Admin Dose Admin Nitroglycerin 0.4 mg Q5MINP PRN SL 10/14/24 14:30 Morphine Sulfate 2 mg Q30M PRN IV 10/14/24 14:30 Rifaximin 550 mg BID PO 10/14/24 22:00 10/22/24 10:03 550 MG Ondansetron HCl 4 mg Q4HPRN PRN IV 10/14/24 14:30 10/21/24 06:26 4 MG Acetaminophen 650 mg Q4HP PRN PO 10/14/24 14:30 10/15/24 12:07 650 MG Pantoprazole Sodium 40 mg BID IV 10/14/24 22:00 10/22/24 10:03 40 MG Midodrine 10 mg TID@0600,1200,1800 PO 10/17/24 10:45 10/22/24 11:31 10 MG Octreotide Acetate 100 mcg TID SUBCUT 10/17/24 14:00 10/22/24 13:36 100 MCG Ceftriaxone Sodium 50 ml @ 100 mls/hr DAILY@09 IV 10/19/24 09:00 10/22/24 10:02 100 MLS/HR Lactulose 30 ml Q4HR PO 10/20/24 12:00 10/22/24 13:36 30 ML Sodium Bicarbonate 50 ml/ Dextrose 1,050 ml @ 60 mls/hr [id number] IV 10/21/24 16:30 10/22/24 10:04 60 MLS/HR Sodium Chloride 1,000 ml @ 100 mls/hr Q10H IV 10/22/24 14:45 10/22/24 14:40 100 MLS/HR objective Gen.: Patient lying in bed in no apparent distress. Breathing on room air. Head: Normocephalic, atraumatic. Eyes: EOMI/PERRLA. Ears: Normal hearing. Normal anatomy. Neck/trachea: Trachea midline, supple. Nose: Normal external anatomy. Mouth: Moist mucous membranes. Chest: Decreased air entry bilaterally. No wheezing or rhonchi. Cardiovascular: Positive S1, positive S2. Regular rate and rhythm. Abdomen: Positive bowel sounds in all 4 quadrants. Soft, non-tender, non- distended. : Deferred. Rectal: Deferred. Skin: Warm, dry. Intact. Extremities: 2+ radial pulses bilaterally. No lower extremity edema. Neuro: Awake, alert, oriented x3. No gross motor or sensory deficits. Cranial nerves II through XII intact. Gait not assessed. laboratory and microbiology Laboratory Tests 10/20/24 04:45 Test 10/20/24 04:45 Range/Units Serum Glucose 168 H 74-106 mg/dL Assessment/Plan Impression: Hepatic encephalopathy Anemia Ascites Liver cirrhosis Thrombocytopenia Hyperammonemia Events: Breathing on room air No respiratory distress. Continue bronchodilators Continue abx Rifaximin On midodrine Antiemetics Lactulose q.4 hours Monitor abdomen for fluid buildup. Patient is NPO Head of bed elevation Aspiration precautions Monitor hemoglobin Potassium supplementation Monitor renal function. Monitor electrolytes. Supplement as necessary. Plan for higher level of care. 10/21/24 - S/p paracentesis with 7 liters ascitic fluid removed. 10/17/24 - S/p ultrasound-guided paracentesis by IR with removal of 7.1 L ascitic fluid. Labs and imaging reviewed. Rest of plan as noted below. Plan: Supplemental oxygen PRN Titrate to keep O2 sats above 92%. Monitor hemoglobin Monitor abdominal distension. On lactulose. Monitor renal function. Monitor electrolytes. Supplement as necessary. Monitor ins and outs. GI prophylaxis - Protonix DVT prophylaxis. Prognosis: Poor given patient's multiple co-morbidities. Rest of plan per hospitalist and other consultants. Thank you, Dr. Ragsdale, for allowing me to participate in this patient's care. Further recommendations will depend on the patient's clinical course. Please do not hesitate to contact me if you have any questions or concerns. This medical document was created using an electronic medical record system with [employer]yp[employer] dictation system. Although these documentations are being carefully reviewed, there may still be some phonetic and typographical changes. The errors are purely typographical, due to imperfection on the software program, and do not reflect any compromise in the patient's medical care. Dietary Evaluation Review Comments: Encourage feeding and increase PO intake to meet 75% of her needs. Consider nutrition supplementation after further assessment of her kidney function. Expected Outcomes/Goals: Improved nutrition status and gradual weight gains. Plan discussed with: Patient, Other (GLADYS Cheung) SCOTT NELSON MD Oct 22, 2024 16:24
--- NOTE | 2024-10-22 19:11 | DVHPN2 ---
Subjective 73-year-old female with a known history of end-stage liver disease, recurrent ascites initially presented to the hospital with altered mental status and nausea and vomiting found to have hepatic encephalopathy and large volume ascites status post paracentesis with more than 7 L removal, overnight events noted. Reviewed: Care Plan Changes from previous H/P or p: No Changes Objective Vitals Vital Signs Date Time Temp Pulse Resp B/P (MAP) Pulse Ox O2 Delivery O2 Flow Rate FiO2 10/22/24 17:00 94.2 61 16 116/61 (79) 98 94.2 10/22/24 08:00 Room Air* 0 21 Intake/Output Intake and Output 10/22/24 07:00 Intake Total 1742.25 ml Balance 1742.25 ml Intake Oral 425 ml IV Total 1317.25 ml # Voids 3 # Bowel Movements 6 Medications Current Medications Medications Dose Ordered Sig/Leti Route Start Time Stop Time Status Last Admin Dose Admin Nitroglycerin 0.4 mg Q5MINP PRN SL 10/14/24 14:30 Morphine Sulfate 2 mg Q30M PRN IV 10/14/24 14:30 Rifaximin 550 mg BID PO 10/14/24 22:00 10/22/24 10:03 550 MG Ondansetron HCl 4 mg Q4HPRN PRN IV 10/14/24 14:30 10/21/24 06:26 4 MG Acetaminophen 650 mg Q4HP PRN PO 10/14/24 14:30 10/15/24 12:07 650 MG Pantoprazole Sodium 40 mg BID IV 10/14/24 22:00 10/22/24 10:03 40 MG Midodrine 10 mg TID@0600,1200,1800 PO 10/17/24 10:45 10/22/24 17:25 10 MG Octreotide Acetate 100 mcg TID SUBCUT 10/17/24 14:00 10/22/24 13:36 100 MCG Ceftriaxone Sodium 50 ml @ 100 mls/hr DAILY@09 IV 10/19/24 09:00 10/22/24 10:02 100 MLS/HR Lactulose 30 ml Q4HR PO 10/20/24 12:00 10/22/24 17:25 30 ML Sodium Bicarbonate 50 ml/ Dextrose 1,050 ml @ 60 mls/hr [id number] IV 10/21/24 16:30 10/22/24 10:04 60 MLS/HR Sodium Chloride 1,000 ml @ 125 mls/hr Q8H IV 10/22/24 17:00 10/22/24 17:00 125 MLS/HR Laboratory Results Laboratory Tests 10/20/24 04:45 Urinalysis Test 10/17/24 18:16 Urine Color Light-orange (Yellow) Urine Clarity Turbid (Clear) H Urine pH 5.0 (5.0-9.0) Urine Specific [place] 1.020 (1.001-1.035) Urine Protein 1+ (Negative) H Urine Ketones Negative (Negative) Urine Blood 3+ /uL (Negative) H Urine Nitrite Negative (Negative) Urine Bilirubin Negative (Negative) Urine Urobilinogen Normal mg/dL (Negative) Urine Leukocyte Esterase 3+ /uL (Negative) Urine RBC 746 /hpf (0 - 4) Urine WBC 217 /hpf (0 - 5) Urine WBC Clumps Present /hpf (None Seen) Urine Squamous Epithelial Cells Few /hpf (<5) Urine Bacteria Few /hpf (None Seen) H Urine Hyaline Casts Mod /lpf (0 - 2) Urine Creatinine 164.31 mg/dL (30.0-125.0) H Urine Sodium 15 mmol/L (40-220) L Urine Glucose Normal mg/dL (Normal) Microbiology Microbiology Date/Time Source Procedure Growth Status 10/18/24 16:31 Blood Blood Culture - Preliminary NO GROWTH AFTER 72 HOURS OF INCUBATION. Resulted 10/17/24 10:25 Ascities Fluid Gram Stain - Final Resulted 10/17/24 10:25 Ascities Fluid Body Fluid Culture - Preliminary Resulted 10/14/24 19:05 Urine - Midstream Clean Catch Urine Culture - Final Complete Assessment/Plan Assessment/Plan 73-year-old female with a known history of end-stage liver disease, recurrent ascites initially presented to the hospital with altered mental status and nausea and vomiting found to have hepatic encephalopathy and large volume ascites status post paracentesis with more than 7 L removal, found to have 1. Acute hepatic encephalopathy 2. Hyperammonemia 3. Acute kidney injury suspect hepatorenal syndrome 4. Ascites status post paracentesis 5. End-stage liver disease 6. Anemia status post 1 unit of packed RBC 7. Thrombocytopenia -continue current management. Follow up Nephrology- Discharge plan -physical therapy evaluation and lety Plan discussed with: Patient, Daughter My Orders Orders - JUMANA MANCILLA MD Procedure Category Date Status Time Sodium Chloride 0.9% PHA 10/22/24 In Process 17:00 Date of Service: Oct 22, 2024 Billing Provider: JUMANA MANCILLA MD Common Visit Codes: NOT BILLABLE JUMANA MANCILLA MD Oct 22, 2024 19:11
--- NOTE | 2024-10-22 20:16 | DVHPN2 ---
Progress Note - Dictate Date Seen: Oct 22, 2024 Medical Necessity Reason Pt with a Central, PICC or Fol: No The following are medically ne: Issa Catheter Subjective Patient was seen at bedside She appears clinically much improved and was smiling at me She denies any nausea or vomiting no abdominal pain diarrhea or bleeding Her ammonia level was trending down Patient had paracentesis on Thursday with removal of 7 L of fluid Renal function improving Patient is receiving lactulose 30 mL every 4 hours ; multiple bowel movement recorded vital signs Vital Sign Date Time Temp Pulse Resp B/P (MAP) Pulse Ox O2 Delivery O2 Flow Rate FiO2 10/22/24 17:00 94.2 61 16 116/61 (79) 98 94.2 10/22/24 08:00 Room Air* 0 21 Total Intake and Output 10/21/24 10/21/24 10/22/24 15:00 23:00 07:00 Intake Total 50 ml 1592.25 ml 100 ml Balance 50 ml 1592.25 ml 100 ml medications Current Medications Medications Dose Ordered Sig/Leti Route Start Time Stop Time Status Last Admin Dose Admin Nitroglycerin 0.4 mg Q5MINP PRN SL 10/14/24 14:30 Morphine Sulfate 2 mg Q30M PRN IV 10/14/24 14:30 Rifaximin 550 mg BID PO 10/14/24 22:00 10/22/24 10:03 550 MG Ondansetron HCl 4 mg Q4HPRN PRN IV 10/14/24 14:30 10/21/24 06:26 4 MG Acetaminophen 650 mg Q4HP PRN PO 10/14/24 14:30 10/15/24 12:07 650 MG Pantoprazole Sodium 40 mg BID IV 10/14/24 22:00 10/22/24 10:03 40 MG Midodrine 10 mg TID@0600,1200,1800 PO 10/17/24 10:45 10/22/24 17:25 10 MG Octreotide Acetate 100 mcg TID SUBCUT 10/17/24 14:00 10/22/24 13:36 100 MCG Ceftriaxone Sodium 50 ml @ 100 mls/hr DAILY@09 IV 10/19/24 09:00 10/22/24 10:02 100 MLS/HR Lactulose 30 ml Q4HR PO 10/20/24 12:00 10/22/24 17:25 30 ML Sodium Bicarbonate 50 ml/ Dextrose 1,050 ml @ 60 mls/hr [id number] IV 10/21/24 16:30 10/22/24 10:04 60 MLS/HR Sodium Chloride 1,000 ml @ 125 mls/hr Q8H IV 10/22/24 17:00 10/22/24 17:00 125 MLS/HR objective Elderly thin female in bed comfortable alert awake oriented to self only. HEENT notable for poor dentition. Pupils equal round react to light. Neck supple no JVD. Lungs fair air movement chest tube will expansion. No wheezing noted Heart regular rate and rhythm S1 plus S2 without audible murmurs. Abdomen is distended. Tympanic to palpation. Nontender. Positive bowel sounds. Extremities trace edema around the ankles. Chronic venous stasis noted around the ankles/calf region in lower extremities. No focal neurological deficits noted laboratory and microbiology Laboratory Tests 10/20/24 04:45 Test 10/20/24 04:45 Range/Units Serum Glucose 168 H 74-106 mg/dL Problems(with codes): (1) Acute renal failure (2) Hypotension (3) Hyperammonemia (4) Thrombocytopenia (5) Liver cirrhosis (6) Ascites (7) Anemia (8) Hepatic encephalopathy Prognosis Plan Monitor labs Check serum ammonia CMP and PT INR IV iron Supportive care Discontinue alcohol Dietary Evaluation Review Comments: Encourage feeding and increase PO intake to meet 75% of her needs. Consider nutrition supplementation after further assessment of her kidney function. Expected Outcomes/Goals: Improved nutrition status and gradual weight gains. Plan discussed with: Patient LINA DIAZ MD Oct 22, 2024 20:16
[2024-10-22] MEDS: LACTULOSE 20Gm/30ML SOLN PO SCH (23:55)
[2024-10-23] VITALS (9 sets, daily range): BP systolic 95–128; BP diastolic 58–68; PULSE 48–63; RESP 12–19; TEMP 96.9–98.4; O2SAT 96–100
[2024-10-23 07:27] LABS: Basophils # (auto) 0 10 ^3/uL (0-0.2); Eosinophils # (auto) 0 10 ^3/uL (0-0.8); Lymphocytes # (auto) 0.4 10 ^3/uL (0.4-5.4); Monocytes # (auto) 0.2 10 ^3/uL (0-1.3); Neutrophils # (auto) 1.5 10 ^3/uL (1.6-8.6); White Blood Cell 2.2 10^3/uL (4.4-10.8)
[2024-10-23 07:31] LABS: Basophils % (auto) 1.7 % (0.0-2.0); Eosinophils % (auto) 0.2 % (0.0-7.0); Hemoglobin 8.8 g/dL (12.2-16.2); Lymphocytes % (auto) 20.5 % (10.0-50.0); Mean Corpuscular Hemoglobin 25.8 pg (28.0-32.0); Mean Corpuscular Hgb Conc. 31.6 g/dL (32.0-36.0); Mean Corpuscular Volume 81.6 fL (80.0-100.0); Monocytes % (auto) 9.8 % (0.0-12.0); Neutrophils % (auto) 67.8 % (37.0-80.0); Nucleated Red Blood Cells % 0.3 %; Platelet Count (auto) 32 10^3/uL (140-450); Red Blood Cells 3.43 10^6/uL (4.0-5.20)
[2024-10-23 07:41] LABS: Alanine Aminotransferase 19 U/L (7-40); Alkaline Phosphatase 54 U/L (46-116); Anion Gap 4 (5-15); Aspartate Aminotransferase 26 U/L (13-40); BUN/Creatinine Ratio 16.3 (10.0-20.0); Bilirubin, Total 0.6 mg/dL (0.2-1.0); Blood Urea Nitrogen 22 mg/dL (9-23); Carbon Dioxide 25 mmol/L (20-31); INR 1.55 (0.9-1.15); Potassium 4.5 mmol/L (3.5-5.1); Prothrombin Time 15.9 sec (9.3-11.8); Sodium 140 mmol/L (136-145)
[2024-10-23 07:49] LABS: Albumin 2.1 g/dL (3.2-4.8); Calcium 7.8 mg/dL (8.7-10.4); Chloride 111 mmol/L (98-107); Glucose 111 mg/dL (74-106); Total Protein 3.8 g/dL (5.7-8.2)
--- NOTE | 2024-10-23 12:29 | DVHPN2 ---
Progress Note Date Seen: Oct 23, 2024 Medical Necessity Reason Pt with a Central, PICC or Fol: No The following are medically ne: Issa Catheter Subjective Patient reports: No new complaints Other Systems: Patient seen and examined by myself today in follow-up Objective vital signs Vital Sign Date Time Temp Pulse Resp B/P (MAP) Pulse Ox O2 Delivery O2 Flow Rate FiO2 10/23/24 09:02 97.6 60 14 107/66 (80) 100 97.6 10/23/24 07:53 Room Air* 0 21 Total Intake and Output 10/22/24 10/22/24 10/23/24 15:00 23:00 07:00 Intake Total 330 ml 1265 ml 2390 ml Balance 330 ml 1265 ml 2390 ml medications Current Medications Medications Dose Ordered Sig/Leti Route Start Time Stop Time Status Last Admin Dose Admin Nitroglycerin 0.4 mg Q5MINP PRN SL 10/14/24 14:30 Morphine Sulfate 2 mg Q30M PRN IV 10/14/24 14:30 Rifaximin 550 mg BID PO 10/14/24 22:00 10/23/24 09:39 550 MG Ondansetron HCl 4 mg Q4HPRN PRN IV 10/14/24 14:30 10/21/24 06:26 4 MG Acetaminophen 650 mg Q4HP PRN PO 10/14/24 14:30 10/15/24 12:07 650 MG Pantoprazole Sodium 40 mg BID IV 10/14/24 22:00 10/23/24 09:39 40 MG Midodrine 10 mg TID@0600,1200,1800 PO 10/17/24 10:45 10/23/24 06:26 10 MG Octreotide Acetate 100 mcg TID SUBCUT 10/17/24 14:00 10/23/24 06:26 100 MCG Ceftriaxone Sodium 50 ml @ 100 mls/hr DAILY@09 IV 10/19/24 09:00 10/23/24 09:39 100 MLS/HR Sodium Bicarbonate 50 ml/ Dextrose 1,050 ml @ 60 mls/hr [id number] IV 10/21/24 16:30 10/23/24 03:25 60 MLS/HR Sodium Chloride 1,000 ml @ 125 mls/hr Q8H IV 10/22/24 17:00 12/22/24 09:39 125 MLS/HR Lactulose 30 ml Q6HP PO 10/23/24 00:00 10/23/24 06:26 30 ML Examination: LUNGS:Normal, CVS:Normal, MSK:Normal laboratory and microbiology Laboratory Tests 10/23/24 06:58 Test 10/23/24 06:58 Range/Units Serum Glucose 111 H 74-106 mg/dL Microbiology Date/Time Source Procedure Growth Status 10/22/24 11:00 Blood Blood Culture - Preliminary NO GROWTH AFTER 24 HOURS OF INCUBATION. 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 Consider nutrition supplementation after further assessment of her kidney function. Expected Outcomes/Goals: Improved nutrition status and gradual weight gains. ZAINAB QUIJANO MD Oct 23, 2024 12:29
--- NOTE | 2024-10-23 15:29 | DVHPN2 ---
Subjective 73-year-old female with a known history of end-stage liver disease, recurrent ascites initially presented to the hospital with altered mental status and nausea and vomiting found to have hepatic encephalopathy and large volume ascites status post paracentesis with more than 7 L removal, overnight events noted. Reviewed: Care Plan Changes from previous H/P or p: No Changes Objective Vitals Vital Signs Date Time Temp Pulse Resp B/P (MAP) Pulse Ox O2 Delivery O2 Flow Rate FiO2 10/23/24 12:33 97.8 63 12 102/61 (75) 98 97.8 10/23/24 07:53 Room Air* 0 21 Intake/Output Intake and Output 10/23/24 07:00 Intake Total 3985 ml Balance 3985 ml Intake Oral 550 ml IV Total 3435 ml # Voids 6 # Bowel Movements 8 Medications Current Medications Medications Dose Ordered Sig/Leti Route Start Time Stop Time Status Last Admin Dose Admin Nitroglycerin 0.4 mg Q5MINP PRN SL 10/14/24 14:30 Morphine Sulfate 2 mg Q30M PRN IV 10/14/24 14:30 Rifaximin 550 mg BID PO 10/14/24 22:00 10/23/24 09:39 550 MG Ondansetron HCl 4 mg Q4HPRN PRN IV 10/14/24 14:30 10/21/24 06:26 4 MG Acetaminophen 650 mg Q4HP PRN PO 10/14/24 14:30 10/15/24 12:07 650 MG Pantoprazole Sodium 40 mg BID IV 10/14/24 22:00 10/23/24 09:39 40 MG Midodrine 10 mg TID@0600,1200,1800 PO 10/17/24 10:45 10/23/24 13:16 10 MG Octreotide Acetate 100 mcg TID SUBCUT 10/17/24 14:00 10/23/24 13:17 100 MCG Ceftriaxone Sodium 50 ml @ 100 mls/hr DAILY@09 IV 10/19/24 09:00 10/23/24 09:39 100 MLS/HR Sodium Bicarbonate 50 ml/ Dextrose 1,050 ml @ 60 mls/hr [id number] IV 10/21/24 16:30 10/23/24 03:25 60 MLS/HR Sodium Chloride 1,000 ml @ 125 mls/hr Q8H IV 10/22/24 17:00 10/23/24 09:39 125 MLS/HR Lactulose 30 ml Q6HP PO 10/23/24 00:00 10/23/24 13:16 30 ML Laboratory Results Laboratory Tests 10/23/24 06:58 Chemistry Test 10/23/24 06:58 Albumin 2.1 g/dL (3.2-4.8) L Calcium Level 7.8 mg/dL (8.7-10.4) L Total Protein 3.8 g/dL (5.7-8.2) L Coagulation Test 10/23/24 06:58 Prothrombin Time 15.9 sec (9.3-11.8) H Prothrombin Time INR 1.55 (0.9-1.15) H LFT Test 10/23/24 06:58 Alanine Aminotransferase (ALT) 19 U/L (7-40) Alkaline Phosphatase 54 U/L (46-116) Aspartate Amino Transferase (AST) 26 U/L (13-40) Total Bilirubin 0.6 mg/dL (0.2-1.0) Urinalysis Test 10/17/24 18:16 Urine Color Light-orange (Yellow) Urine Clarity Turbid (Clear) H Urine pH 5.0 (5.0-9.0) Urine Specific [place] 1.020 (1.001-1.035) Urine Protein 1+ (Negative) H Urine Ketones Negative (Negative) Urine Blood 3+ /uL (Negative) H Urine Nitrite Negative (Negative) Urine Bilirubin Negative (Negative) Urine Urobilinogen Normal mg/dL (Negative) Urine Leukocyte Esterase 3+ /uL (Negative) Urine RBC 746 /hpf (0 - 4) Urine WBC 217 /hpf (0 - 5) Urine WBC Clumps Present /hpf (None Seen) Urine Squamous Epithelial Cells Few /hpf (<5) Urine Bacteria Few /hpf (None Seen) H Urine Hyaline Casts Mod /lpf (0 - 2) Urine Creatinine 164.31 mg/dL (30.0-125.0) H Urine Sodium 15 mmol/L (40-220) L Urine Glucose Normal mg/dL (Normal) Microbiology Microbiology Date/Time Source Procedure Growth Status 10/22/24 11:00 Blood Blood Culture - Preliminary NO GROWTH AFTER 24 HOURS OF INCUBATION. Resulted 10/17/24 10:25 Ascities Fluid Gram Stain - Final Complete 10/17/24 10:25 Ascities Fluid Body Fluid Culture - Final Complete 10/14/24 19:05 Urine - Midstream Clean Catch Urine Culture - Final Complete Assessment/Plan Assessment/Plan 73-year-old female with a known history of end-stage liver disease, recurrent ascites initially presented to the hospital with altered mental status and nausea and vomiting found to have hepatic encephalopathy and large volume ascites status post paracentesis with more than 7 L removal, found to have 1. Acute hepatic encephalopathy 2. Hyperammonemia 3. Acute kidney injury suspect hepatorenal syndrome 4. Ascites status post paracentesis 5. End-stage liver disease 6. Anemia status post 1 unit of packed RBC 7. Thrombocytopenia -continue current management. Follow up Nephrology- Discharge plan 24 hours -physical therapy evaluation and treatment Plan discussed with: Patient, Other My Orders Orders - JUMANA MANCILLA MD Procedure Category Date Status Time Sodium Chloride 0.9% PHA 10/22/24 In Process 17:00 Date of Service: Oct 23, 2024 Billing Provider: JUMANA MANCILLA MD Common Visit Codes: NOT BILLABLE JUMANA MANCILLA MD Oct 23, 2024 15:29
--- NOTE | 2024-10-23 23:12 | DVHPN2 ---
Progress Note - Dictate Date Seen: Oct 23, 2024 Medical Necessity Reason Pt with a Central, PICC or Fol: No The following are medically ne: Issa Catheter Subjective Patient seen and examined at bedside. Breathing comfortably on room air. Overnight events reviewed. vital signs Vital Sign Date Time Temp Pulse Resp B/P (MAP) Pulse Ox O2 Delivery O2 Flow Rate FiO2 10/23/24 21:00 98.4 59 16 95/58 (70) 96 98.4 10/23/24 07:53 Room Air* 0 21 Total Intake and Output 10/22/24 10/22/24 10/23/24 15:00 23:00 07:00 Intake Total 330 ml 1265 ml 2390 ml Balance 330 ml 1265 ml 2390 ml medications Current Medications Medications Dose Ordered Sig/Leti Route Start Time Stop Time Status Last Admin Dose Admin Nitroglycerin 0.4 mg Q5MINP PRN SL 10/14/24 14:30 Morphine Sulfate 2 mg Q30M PRN IV 10/14/24 14:30 Rifaximin 550 mg BID PO 10/14/24 22:00 10/23/24 21:45 550 MG Ondansetron HCl 4 mg Q4HPRN PRN IV 10/14/24 14:30 10/21/24 06:26 4 MG Acetaminophen 650 mg Q4HP PRN PO 10/14/24 14:30 10/15/24 12:07 650 MG Pantoprazole Sodium 40 mg BID IV 10/14/24 22:00 10/23/24 21:45 40 MG Midodrine 10 mg TID@0600,1200,1800 PO 10/17/24 10:45 10/23/24 17:03 10 MG Octreotide Acetate 100 mcg TID SUBCUT 10/17/24 14:00 10/23/24 23:05 100 MCG Ceftriaxone Sodium 50 ml @ 100 mls/hr DAILY@09 IV 10/19/24 09:00 10/23/24 09:39 100 MLS/HR Sodium Bicarbonate 50 ml/ Dextrose 1,050 ml @ 60 mls/hr [id number] IV 10/21/24 16:30 10/23/24 21:02 60 MLS/HR Sodium Chloride 1,000 ml @ 125 mls/hr Q8H IV 10/22/24 17:00 10/23/24 17:02 125 MLS/HR Lactulose 30 ml Q6HP PO 10/23/24 00:00 10/23/24 17:03 30 ML objective Gen.: Patient lying in bed in no apparent distress. Breathing on room air. Head: Normocephalic, atraumatic. Eyes: EOMI/PERRLA. Ears: Normal hearing. Normal anatomy. Neck/trachea: Trachea midline, supple. Nose: Normal external anatomy. Mouth: Moist mucous membranes. Chest: Decreased air entry bilaterally. No wheezing or rhonchi. Cardiovascular: Positive S1, positive S2. Regular rate and rhythm. Abdomen: Positive bowel sounds in all 4 quadrants. Soft, non-tender, non- distended. : Deferred. Rectal: Deferred. Skin: Warm, dry. Intact. Extremities: 2+ radial pulses bilaterally. No lower extremity edema. Neuro: Awake, alert, oriented x3. No gross motor or sensory deficits. Cranial nerves II through XII intact. Gait not assessed. laboratory and microbiology Laboratory Tests 10/23/24 06:58 Test 10/23/24 06:58 Range/Units Serum Glucose 111 H 74-106 mg/dL Assessment/Plan Impression: Hepatic encephalopathy Anemia Ascites Liver cirrhosis Thrombocytopenia Hyperammonemia Events: Breathing on room air No respiratory distress. Continue bronchodilators Continue antibiotics On midodrine Antiemetics Lactulose q.4 hours Monitor abdomen for fluid buildup. Patient is NPO Head of bed elevation Aspiration precautions Monitor hemoglobin Plan for higher level of care. 10/21/24 - S/p paracentesis with 7 liters ascitic fluid removed. 10/17/24 - S/p ultrasound-guided paracentesis by IR with removal of 7.1 L ascitic fluid. Labs and imaging reviewed. Rest of plan as noted below. Plan: Supplemental oxygen PRN Titrate to keep O2 sats above 92%. Monitor hemoglobin Monitor abdominal distension. On lactulose. Monitor renal function. Monitor electrolytes. Supplement as necessary. Monitor ins and outs. GI prophylaxis - Protonix DVT prophylaxis. Prognosis: Poor given patient's multiple co-morbidities. Rest of plan per hospitalist and other consultants. Thank you, Dr. Ragsdale, for allowing me to participate in this patient's care. Further recommendations will depend on the patient's clinical course. Please do not hesitate to contact me if you have any questions or concerns. This medical document was created using an electronic medical record system with [email or web address] dictation system. Although these documentations are being carefully reviewed, there may still be some phonetic and typographical changes. The errors are purely typographical, due to imperfection on the software program, and do not reflect any compromise in the patient's medical care. Dietary Evaluation Review Comments: Encourage feeding and increase PO intake to meet 75% of her needs. Consider nutrition supplementation after further assessment of her kidney function. Expected Outcomes/Goals: Improved nutrition status and gradual weight gains. Plan discussed with: Patient, Other (GLADYS Cho) SCOTT NELSON MD Oct 23, 2024 23:12
--- NOTE | 2024-10-23 23:33 | DVHPN2 ---
Progress Note - Dictate Date Seen: Oct 23, 2024 Medical Necessity Reason Pt with a Central, PICC or Fol: No The following are medically ne: Issa Catheter Subjective Patient was seen at bedside She appears clinically much improved Ammonia level has normalized ;lactic acidosis has resolved Patient is noted to have mild worsening pancytopenia due to underlying chronic liver disease She denies any nausea or vomiting no abdominal pain diarrhea or bleeding Patient had paracentesis on Thursday with removal of 7 L of fluid Renal function improving Patient is receiving lactulose 30 mL every 4 hours ; multiple bowel movement recorded vital signs Vital Sign Date Time Temp Pulse Resp B/P (MAP) Pulse Ox O2 Delivery O2 Flow Rate FiO2 10/23/24 21:00 98.4 59 16 95/58 (70) 96 98.4 10/23/24 07:53 Room Air* 0 21 Total Intake and Output 10/22/24 10/22/24 10/23/24 15:00 23:00 07:00 Intake Total 330 ml 1265 ml 2390 ml Balance 330 ml 1265 ml 2390 ml medications Current Medications Medications Dose Ordered Sig/Leti Route Start Time Stop Time Status Last Admin Dose Admin Nitroglycerin 0.4 mg Q5MINP PRN SL 10/14/24 14:30 Morphine Sulfate 2 mg Q30M PRN IV 10/14/24 14:30 Rifaximin 550 mg BID PO 10/14/24 22:00 10/23/24 21:45 550 MG Ondansetron HCl 4 mg Q4HPRN PRN IV 10/14/24 14:30 10/21/24 06:26 4 MG Acetaminophen 650 mg Q4HP PRN PO 10/14/24 14:30 10/15/24 12:07 650 MG Pantoprazole Sodium 40 mg BID IV 10/14/24 22:00 10/23/24 21:45 40 MG Midodrine 10 mg TID@0600,1200,1800 PO 10/17/24 10:45 10/23/24 17:03 10 MG Octreotide Acetate 100 mcg TID SUBCUT 10/17/24 14:00 10/23/24 23:05 100 MCG Ceftriaxone Sodium 50 ml @ 100 mls/hr DAILY@09 IV 10/19/24 09:00 10/23/24 09:39 100 MLS/HR Sodium Bicarbonate 50 ml/ Dextrose 1,050 ml @ 60 mls/hr [id number] IV 10/21/24 16:30 10/23/24 21:02 60 MLS/HR Sodium Chloride 1,000 ml @ 125 mls/hr Q8H IV 10/22/24 17:00 10/23/24 17:02 125 MLS/HR Lactulose 30 ml Q6HP PO 10/23/24 00:00 10/23/24 17:03 30 ML objective Elderly thin female in bed comfortable alert awake oriented to self only. HEENT notable for poor dentition. Pupils equal round react to light. Neck supple no JVD. Lungs fair air movement chest tube will expansion. No wheezing noted Heart regular rate and rhythm S1 plus S2 without audible murmurs. Abdomen is distended. Tympanic to palpation. Nontender. Positive bowel sounds. Extremities trace edema around the ankles. Chronic venous stasis noted around the ankles/calf region in lower extremities. No focal neurological deficits noted laboratory and microbiology Laboratory Tests 10/23/24 06:58 Test 10/23/24 06:58 Range/Units Serum Glucose 111 H 74-106 mg/dL Problems(with codes): (1) Pancytopenia (2) Acute renal failure (3) Hypotension (4) Hyperammonemia (5) Thrombocytopenia (6) Liver cirrhosis (7) Ascites (8) Anemia (9) Hepatic encephalopathy Prognosis Plan . Her MELD score has improved to 14 points suggestive of good prognosis Decrease lactulose to 30 mL p.o. three times a day as patient is having multiple bowel movements Continue Xifaxan Supportive care ; monitor labs Discharge planning ongoing Dietary Evaluation Review Comments: Encourage feeding and increase PO intake to meet 75% of her needs. Consider nutrition supplementation after further assessment of her kidney function. Expected Outcomes/Goals: Improved nutrition status and gradual weight gains. Plan discussed with: Patient LINA DIAZ MD Oct 23, 2024 23:33
[2024-10-24 01:00] VITALS: BP 106/61; PULSE 60; RESP 17; TEMP 98.4; O2SAT 99
[2024-10-24 05:00] VITALS: BP 120/70; PULSE 64; RESP 16; TEMP 98; O2SAT 98
[2024-10-24 08:05] VITALS: PULSE 58
[2024-10-24 09:00] VITALS: BP 105/67; PULSE 60; RESP 18; TEMP 97.9; O2SAT 96
[2024-10-24 13:00] VITALS: BP 99/54; PULSE 60; RESP 17; TEMP 98; O2SAT 99
--- NOTE | 2024-10-24 16:10 | DVHPN2 ---
Progress Note Date Seen: Oct 24, 2024 Medical Necessity Reason Pt with a Central, PICC or Fol: No The following are medically ne: Issa Catheter Subjective Patient reports: Other Objective vital signs Vital Sign Date Time Temp Pulse Resp B/P (MAP) Pulse Ox O2 Delivery O2 Flow Rate FiO2 10/24/24 13:00 98.0 60 17 99/54 (69) 99 98.0 10/24/24 08:05 Room Air* 0 21 Total Intake and Output 10/23/24 10/23/24 10/24/24 15:00 23:00 07:00 Intake Total 50 ml 2305 ml 250 ml Output Total 3 ml Balance 50 ml 2305 ml 247 ml medications Current Medications Medications Dose Ordered Sig/Leti Route Start Time Stop Time Status Last Admin Dose Admin Nitroglycerin 0.4 mg Q5MINP PRN SL 10/14/24 14:30 Morphine Sulfate 2 mg Q30M PRN IV 10/14/24 14:30 Rifaximin 550 mg BID PO 10/14/24 22:00 10/24/24 10:26 550 MG Ondansetron HCl 4 mg Q4HPRN PRN IV 10/14/24 14:30 10/21/24 06:26 4 MG Acetaminophen 650 mg Q4HP PRN PO 10/14/24 14:30 10/15/24 12:07 650 MG Pantoprazole Sodium 40 mg BID IV 10/14/24 22:00 10/24/24 10:26 40 MG Midodrine 10 mg TID@0600,1200,1800 PO 10/17/24 10:45 10/24/24 13:10 10 MG Octreotide Acetate 100 mcg TID SUBCUT 10/17/24 14:00 10/24/24 06:33 100 MCG Ceftriaxone Sodium 50 ml @ 100 mls/hr DAILY@09 IV 10/19/24 09:00 10/24/24 08:46 100 MLS/HR Sodium Bicarbonate 50 ml/ Dextrose 1,050 ml @ 60 mls/hr [id number] IV 10/21/24 16:30 10/23/24 21:02 60 MLS/HR Sodium Chloride 1,000 ml @ 125 mls/hr Q8H IV 10/22/24 17:00 10/24/24 13:11 125 MLS/HR Lactulose 30 ml Q6HP PO 10/23/24 00:00 10/24/24 13:10 30 ML Examination: GENERAL:Normal, GENERAL:Abnormal, ABDOMEN:Abnormal, SKIN:Abnormal laboratory and microbiology Laboratory Tests 10/23/24 06:58 Test 10/23/24 06:58 Range/Units Serum Glucose 111 H 74-106 mg/dL Microbiology Date/Time Source Procedure Growth Status 10/22/24 11:00 Blood Blood Culture - Preliminary NO GROWTH AFTER 48 HOURS OF INCUBATION. 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 Consider nutrition supplementation after further assessment of her kidney function. Expected Outcomes/Goals: Improved nutrition status and gradual weight gains. DEEPA SHANKS MD Oct 24, 2024 16:09
--- NOTE | 2024-10-24 16:10 | DVHDS2 ---
Discharge Summary Date of Admission Oct 14, 2024 at 14:20 Date of Discharge: Oct 24, 2024 Labs/Diagnostic Data: Laboratory Results Test 10/23/24 06:58 10/18/24 05:13 10/17/24 18:16 10/17/24 17:23 White Blood Count 2.2 10^3/uL (4.4-10.8) Red Blood Count 3.43 10^6/uL (4.0-5.20) Hemoglobin 8.8 g/dL (12.2-16.2) Hematocrit 28.0 % (36.0-46.0) Mean Corpuscular Volume 81.6 fL (80.0-100.0) Mean Corpuscular Hemoglobin 25.8 pg (28.0-32.0) Mean Corpuscular Hemoglobin Concent 31.6 g/dL (32.0-36.0) Red Cell Distribution Width 19.0 % (11.8-14.3) Platelet Count 32 10^3/uL (140-450) Mean Platelet Volume 8.8 fL (6.9-10.8) Neutrophils (%) (Auto) 67.8 % (37.0-80.0) Lymphocytes (%) (Auto) 20.5 % (10.0-50.0) Monocytes (%) (Auto) 9.8 % (0.0-12.0) Eosinophils (%) (Auto) 0.2 % (0.0-7.0) Basophils (%) (Auto) 1.7 % (0.0-2.0) Neutrophils # (Auto) 1.5 10 ^3/uL (1.6-8.6) Lymphocytes # (Auto) 0.4 10 ^3/uL (0.4-5.4) Monocytes # (Auto) 0.2 10 ^3/uL (0-1.3) Eosinophils # (Auto) 0 10 ^3/uL (0-0.8) Basophils # (Auto) 0 10 ^3/uL (0-0.2) Nucleated Red Blood Cells 0.3 % Prothrombin Time 15.9 sec (9.3-11.8) Prothrombin Time INR 1.55 (0.9-1.15) Sodium Level 140 mmol/L (136-145) Potassium Level 4.5 mmol/L (3.5-5.1) Chloride Level 111 mmol/L (98-107) Carbon Dioxide Level 25 mmol/L (20-31) Anion Gap 4 (5-15) Blood Urea Nitrogen 22 mg/dL (9-23) Creatinine 1.35 mg/dL (0.550-1.02) Glomerular Filtration Rate Calc 42 mL/min (>90) BUN/Creatinine Ratio 16.3 (10.0-20.0) Serum Glucose 111 mg/dL (74-106) Lactic Acid Level 1.9 mmol/L (0.4-2.0) Calcium Level 7.8 mg/dL (8.7-10.4) Total Bilirubin 0.6 mg/dL (0.2-1.0) Aspartate Amino Transferase (AST) 26 U/L (13-40) Alanine Aminotransferase (ALT) 19 U/L (7-40) Alkaline Phosphatase 54 U/L (46-116) Ammonia 22 umol/L (11-32) Total Protein 3.8 g/dL (5.7-8.2) Albumin 2.1 g/dL (3.2-4.8) Differential Total Cells Counted 100.0 (100) Neutrophils % (Manual) 77 (37.0-80.0) Band Neutrophils % (Manual) 0 Lymphocytes % (Manual) 14 (10.0-50.0) Monocytes % (Manual) 7 (0-12) Eosinophils % (Manual) 1 (0-7) Basophils % (Manual) 0 (0.0-2.0) Metamyelocytes % (manual) 0 Myelocytes % (Manual) 1 Promyelocytes % (Manual) 0 Blast Cells % (Manual) 0 Reactive Lymphocytes 0 Platelet Estimate Decreased Ovalocytes Few Schistocytes Few Urine Color Light-orange (Yellow) Urine Clarity Turbid (Clear) Urine pH 5.0 (5.0-9.0) Urine Specific [place] 1.020 (1.001-1.035) Urine Protein 1+ (Negative) Urine Ketones Negative (Negative) Urine Blood 3+ /uL (Negative) Urine Nitrite Negative (Negative) Urine Bilirubin Negative (Negative) Urine Urobilinogen Normal mg/dL (Negative) Urine Leukocyte Esterase 3+ /uL (Negative) Urine RBC 746 /hpf (0 - 4) Urine WBC 217 /hpf (0 - 5) Urine WBC Clumps Present /hpf (None Seen) Urine Squamous Epithelial Cells Few /hpf (<5) Urine Bacteria Few /hpf (None Seen) Urine Hyaline Casts Mod /lpf (0 - 2) Urine Creatinine 164.31 mg/dL (30.0-125.0) Urine Sodium 15 mmol/L (40-220) Urine Glucose Normal mg/dL (Normal) Free Thyroxine (T4) Calculated 0.79 ng/dL (0.89-1.76) Test 10/17/24 10:25 10/17/24 10:10 10/17/24 09:36 10/16/24 05:01 Body Fluid Source Peritoneal fluid Body Fluid pH 8.0 Body Fluid WBC (Manual) 214 CUMM (0-200) Body Fluid RBC (Manual) 173 CUMM (0-2000) Body Fluid Mononuclear Cells 97 % Body Fluid Polymorphonuclear Cells 3 % (0-25) Body Fluid Glucose 71 mg/dL (.) Body Fluid Total Protein 1.0 g/dL (.) Body Fluid Lactate Dehydrogenase 66 IU/L (.) Activated Partial Thromboplast Time 46.5 SEC (24.5-34.5) Thyroid Stimulating Hormone (TSH) 10.24 uIU/mL (0.55-4.78) Iron Level 13 ug/dL (50-170) Total Iron Binding Capacity 272 ug/dL (250-425) Percent Iron Saturation 4.8 % (15-50) Ferritin 32.6 ng/mL (10-291) Hepatitis B Surface Antigen Negative (Negative) Hepatitis C Antibody Negative (Negative) Test 10/15/24 06:24 10/14/24 20:24 10/14/24 11:00 Troponin I High Sensitivity 73 ng/L (</=34) Anti-Nuclear Antibody Screen Negative (Negative) Hepatitis A Antibody Total Positive (Negative) Hepatitis B Surface Antibody Negative (Negative) Hepatitis B Core Total Antibody Negative (Negative) Influenza Type A Antigen Negative (Negative) Influenza Type B Antigen Negative (Negative) SARS-CoV-2 Antigen (Rapid) Negative (NEGATIVE) Magnesium Level 2.6 mg/dL (1.6-2.6) B-Type Natriuretic Peptide 128.70 pg/mL (0-100) Other Laboratory Tests 10/23/24 06:58 Brief Hx & Hospital Course: 73-year-old female with a known history of end-stage liver disease, recurrent ascites initially presented to the hospital with altered mental status and nausea and vomiting found to have hepatic encephalopathy and large volume ascites status post paracentesis with more than 7 L removal, found to have hepatic encephalopathy. Patient was was admitted. Patient was initially in the [facility] currently on tele floor. Patient was walked with the physical therapy patient was being discharged under stable condition. Condition at Discharge: Stable Final Diagnosis/Problems List 1. Acute hepatic encephalopathy 2. Hyperammonemia 3. Acute kidney injury suspect hepatorenal syndrome 4. Ascites status post paracentesis 5. End-stage liver disease 6. Anemia status post 1 unit of packed RBC 7. Thrombocytopenia -continue current management. Discharge Disposition: Home with Health Services SNF Discharge Will this Physician continue t: No Discharge Instruct/Medications Diet: Cardiac 2g Na,low cholest Activity: No Restrictions, As Tolerated Follow Up/Referral: Follow up with the PCP in 1-2 weeks Follow up with the GI gastro group in 1-2 weeks Medications: Resume home medication Discharge Statement: "Patient was advised to return to the ER or call 911 if any headaches, dizziness, shortness of breath, chest pain, abdominal pain, bleeding, fevers, or worsening of medical condition. Patient was counseled about treatment plan, medications, possible side effects, patientverbalized understanding. All questions were answered to the best of my ability. This discharge took greater then 30 minutes in planning, reviewing documentation, counseling the patient, and discussing with other team members." ASSESSMENT ASSESSMENT Assessment 1. Acute hepatic encephalopathy 2. Hyperammonemia 3. Acute kidney injury suspect hepatorenal syndrome 4. Ascites status post paracentesis 5. End-stage liver disease 6. Anemia status post 1 unit of packed RBC 7. Thrombocytopenia -continue current management. Date of Service: Oct 24, 2024 Billing Provider: JUMANA MANCILLA MD Common Visit Codes: NOT BILLABLE JUMANA MANCILLA MD Oct 24, 2024 16:10
[2024-10-24 17:00] VITALS: BP 110/61; PULSE 80; RESP 16; TEMP 98; O2SAT 96
[2024-10-24 17:54] LABS: Potassium 3.7 mmol/L (3.5-5.1); Sodium 139 mmol/L (136-145)
[2024-10-24 17:55] LABS: Anion Gap 7 (5-15); Carbon Dioxide 22 mmol/L (20-31)
[2024-10-24 18:01] LABS: BUN/Creatinine Ratio 12.8 (10.0-20.0); Blood Urea Nitrogen 19 mg/dL (9-23)
[2024-10-24 18:02] LABS: Chloride 110 mmol/L (98-107); Glucose 112 mg/dL (74-106)
[2024-10-24 18:03] LABS: Calcium 7.7 mg/dL (8.7-10.4)
--- NOTE | 2024-10-24 22:55 | DVHPN2 ---
Progress Note - Dictate Date Seen: Oct 24, 2024 Medical Necessity Reason Pt with a Central, PICC or Fol: No The following are medically ne: Issa Catheter Subjective Patient seen and examined at bedside. Breathing comfortably on room air. Overnight events reviewed. vital signs Vital Sign Date Time Temp Pulse Resp B/P (MAP) Pulse Ox O2 Delivery O2 Flow Rate FiO2 10/24/24 17:00 98.0 80 16 110/61 (77) 96 98.0 10/24/24 08:05 Room Air* 0 21 Total Intake and Output 10/23/24 10/23/24 10/24/24 15:00 23:00 07:00 Intake Total 50 ml 2305 ml 250 ml Output Total 3 ml Balance 50 ml 2305 ml 247 ml objective Gen.: Patient lying in bed in no apparent distress. Breathing on room air. Head: Normocephalic, atraumatic. Eyes: EOMI/PERRLA. Ears: Normal hearing. Normal anatomy. Neck/trachea: Trachea midline, supple. Nose: Normal external anatomy. Mouth: Moist mucous membranes. Chest: Decreased air entry bilaterally. No wheezing or rhonchi. Cardiovascular: Positive S1, positive S2. Regular rate and rhythm. Abdomen: Positive bowel sounds in all 4 quadrants. Soft, non-tender, non- distended. : Deferred. Rectal: Deferred. Skin: Warm, dry. Intact. Extremities: 2+ radial pulses bilaterally. No lower extremity edema. Neuro: Awake, alert, oriented x3. No gross motor or sensory deficits. Cranial nerves II through XII intact. Gait not assessed. laboratory and microbiology Laboratory Tests 10/24/24 17:00 10/23/24 06:58 Test 10/24/24 17:00 Range/Units Serum Glucose 112 H 74-106 mg/dL Assessment/Plan Impression: Hepatic encephalopathy Anemia Ascites Liver cirrhosis Thrombocytopenia Hyperammonemia Events: Breathing on room air No respiratory distress. Continue antibiotics Head of bed elevation Aspiration precautions Plan for higher level of care. Patient is stable for discharge from the pulmonary standpoint. Follow up in 1-2 weeks with PCP. 10/21/24 - S/p paracentesis with 7 liters ascitic fluid removed. 10/17/24 - S/p ultrasound-guided paracentesis by IR with removal of 7.1 L ascitic fluid. Labs and imaging reviewed. Rest of plan as noted below. Plan: Supplemental oxygen PRN Titrate to keep O2 sats above 92%. Monitor hemoglobin Antibiotics Monitor abdominal distension. Lactulose. Monitor renal function. Monitor electrolytes. Supplement as necessary. Monitor ins and outs. GI prophylaxis - Protonix DVT prophylaxis. Prognosis: Poor given patient's multiple co-morbidities. Rest of plan per hospitalist and other consultants. Thank you, Dr. Ragsdale, for allowing me to participate in this patient's care. Further recommendations will depend on the patient's clinical course. Please do not hesitate to contact me if you have any questions or concerns. This medical document was created using an electronic medical record system with [employer] dictation system. Although these documentations are being carefully reviewed, there may still be some phonetic and typographical changes. The errors are purely typographical, due to imperfection on the software program, and do not reflect any compromise in the patient's medical care. Dietary Evaluation Review Comments: Encourage feeding and increase PO intake to meet 75% of her needs. Consider nutrition supplementation after further assessment of her kidney function. Expected Outcomes/Goals: Improved nutrition status and gradual weight gains. Plan discussed with: Patient, Other (GLADYS Bliss) SCOTT NELSON MD Oct 24, 2024 22:55
== END 2024-10-24 19:04 | disposition home health service (06) | DRG 441 ==
LOC: EDBD 10:28 → ER 10:28 → TELE 14:20 → TELE-EAST 14:24 → DOU IN ICU 10-18 14:02 → ICU CENTRL 10-18 14:03 → TELE-WESTW 10-20 13:53
PROVIDERS: ADMIT Hospitalist; ATTEND Internal Medicine
PROC: 30233N1 Transfusion of Nonautologous Red Blood Cells into Peripheral Vein, Percutaneous Approach (ICD-10-PCS; principal; 2024-10-17)
PROC: 0W9G3ZZ Drainage of Peritoneal Cavity, Percutaneous Approach (ICD-10-PCS; 2024-10-17)
PROC: 05HB33Z Insertion of Infusion Device into Right Basilic Vein, Percutaneous Approach (ICD-10-PCS; 2024-10-18)
PROC: B54MZZA Ultrasonography of Right Upper Extremity Veins, Guidance (ICD-10-PCS; 2024-10-18)
PROC: 0W9G3ZX Drainage of Peritoneal Cavity, Percutaneous Approach, Diagnostic (ICD-10-PCS; 2024-10-21)
DX: K76.82 Hepatic encephalopathy (principal); K76.7 Hepatorenal syndrome; D61.818 Other pancytopenia; E87.1 Hypo-osmolality and hyponatremia; N17.9 Acute kidney failure, unspecified; R18.8 Other ascites; E87.20 Acidosis, unspecified; K74.60 Unspecified cirrhosis of liver; Z20.822 Contact with and (suspected) exposure to COVID-19; K80.20 Calculus of gallbladder without cholecystitis without obstruction; E86.0 Dehydration; K72.10 Chronic hepatic failure without coma; E88.09 Other disorders of plasma-protein metabolism, not elsewhere classified; D50.0 Iron deficiency anemia secondary to blood loss (chronic); Z82.49 Family history of ischemic heart disease and other diseases of the circulatory system; Z91.199 Patient's noncompliance with other medical treatment and regimen due to unspecified reason; Z82.3 Family history of stroke; Z82.0 Family history of epilepsy and other diseases of the nervous system
CPT/HCPCS: 36415; 49083; 70450; 70551; 71045; 74176; 76705; 76942; 80048; 80053; 81001; 82140; 82570; 82728; 83540; 83550; 83605; 83735; 83880; 83986; 84300; 84439; 84443; 84484; 85007; 85025; 85027; 85610; 85730; 86038; 86704; 86706; 86708; 86803; 86850; 86900; 86901; 86920; 87040; 87086; 87205; 87340; 87426; 87804; 89051; 93005; 93306; 97110; 97116; 97163; 97530; G0378; J1756; J2405; J2470; J3430; J3480; P9047

== ENCOUNTER 2024-12-12 18:43 | Inpatient (IN) | payer OTHER, MEDICAID ==
[~2024-12-12] VITALS: Ht 157.5 cm; Wt 60.2 kg
--- NOTE | 2024-12-12 19:35 | ED.PDOC ---
GI ASSESSMENT HPI Comments 74y F who presents to the ED via EMS for chief complaint of nausea and vomiting. Per EMS, family called EMS after they noticed pt had approx 50 ml of vomit in bag which contained bright red blood. Upon EMS, arrival, pt was not able to answer questions and appeared and was constantly repeating her name mariangel appeared altered but states upon arrival to ED, she was able to state she was having diffuse abdominal pain. Pt family told EMS that pt PCP told her she has esophageal varices that developed from history of liver cirrhosis. EMS states pt did not having vomiting episode en route but was given zofran. EMS states pt had noted BP was hypotensive upon arrival to residence. Pt has noted stable vitals in the ED. Pt otherwise denies any other symptoms at this time. Chief Complaint: Nausea/Vomiting Time Seen by MD: 19:34 Primary Care Provider: ASHLEY Allergies: Coded Allergies: NO KNOWN ALLERGIES (Unverified , 10/14/24) Home Meds No Active Prescriptions or Reported Meds Information Source: Patient, Emergency Med Personnel Mode of Arrival: EMS Brought in by: EMS Vital Signs Vital Signs Date Time Temp Pulse Resp B/P (MAP) Pulse Ox O2 Delivery O2 Flow Rate FiO2 12/12/24 23:00 80 14 99 Room Air 12/12/24 23:00 98.6 106/64 (78) 98.6 Physical Exam General: Awake, alert and oriented. No acute distress. Skin: Jaundice HEENT: The head is normocephalic and atraumatic. Conjunctivae are clear without exudates or hemorrhage. Sclera is non-icteric. Neck: Normal range of motion. No JVD. Cardiac: Regular rate Respiratory: No signs of respiratory distress. No Stridor. Abdomen: Distended Extremities: Upper and lower extremities are atraumatic in appearance without tenderness or deformity. Neurological: The patient is awake, alert and oriented to person, place, and time with normal speech. Speech is clear. There is no facial asymmetry. Psychiatric: Appropriate mood and affect. Good judgement and insight. No visual or auditory hallucinations. No suicidal or homicidal ideation. Review of Systems: Unable to obtain Past Medical History PAST MEDICAL HISTORY: HTN, Liver Surgical History: Unknown LUBE MAN History: Unknown Family History Family History: Unknown Social History Smoker: Non-Smoker Alcohol: Denies ETOH Use Drugs: Denies Drug Use Lives In: Home EKG EKG : Pulse Rate (adult): 79 Randall: Normal Cardiac Rhythm: Afib Block: None Hypertrophy: None ST: Normal Comments abnormal lateral Q waves, prolonged QT interval, Was a procedure done? Was a procedure done?: No GI differential Dx Differential Diagnosis: Esophageal rupture, Esophagitis, GI hemorrhage, Pancreatitis, Dehydration Other Differential Diagnosis liver disease, varices, hepatic encephalopathy, X-Ray, Labs, Meds, VS Vital Signs Date Time Temp Pulse Resp B/P (MAP) Pulse Ox O2 Delivery O2 Flow Rate FiO2 12/12/24 23:00 80 14 99 Room Air 12/12/24 23:00 98.6 80 14 106/64 (78) 99 98.6 12/12/24 20:31 79 12/12/24 18:55 79 12/12/24 18:50 98.6 80 14 114/76 (89) 100 Lab Test 12/12/24 21:50 12/12/24 20:00 Range/Units Lactic Acid Level 2.1 *H 2.1 *H 0.4-2.0 mmol/L White Blood Count 2.7 L 4.4-10.8 10^3/uL Red Blood Count 3.33 L 4.0-5.20 10^6/uL Hemoglobin 9.6 L 12.2-16.2 g/dL Hematocrit 30.0 L 36.0-46.0 % Mean Corpuscular Volume 90.3 80.0-100.0 fL Mean Corpuscular Hemoglobin 28.7 28.0-32.0 pg Mean Corpuscular Hemoglobin Concent 31.8 L 32.0-36.0 g/dL Red Cell Distribution Width 34.0 H 11.8-14.3 % Platelet Count 75 L 140-450 10^3/uL Mean Platelet Volume 9.3 6.9-10.8 fL Neutrophils (%) (Auto) 69.2 37.0-80.0 % Lymphocytes (%) (Auto) 23.6 10.0-50.0 % Monocytes (%) (Auto) 5.8 0.0-12.0 % Eosinophils (%) (Auto) 0.2 0.0-7.0 % Basophils (%) (Auto) 1.2 0.0-2.0 % Neutrophils # (Auto) 1.9 1.6-8.6 10 ^3/uL Lymphocytes # (Auto) 0.6 0.4-5.4 10 ^3/uL Monocytes # (Auto) 0.2 0-1.3 10 ^3/uL Eosinophils # (Auto) 0 0-0.8 10 ^3/uL Basophils # (Auto) 0 0-0.2 10 ^3/uL Nucleated Red Blood Cells 0.6 % Platelet Estimate Decreased Anisocytosis (manual) Moderate Tear Drop Cells Few Ovalocytes Few Prothrombin Time 12.2 H 9.3-11.8 sec Prothrombin Time INR 1.17 H 0.9-1.15 Sodium Level 141 136-145 mmol/L Potassium Level 3.4 L 3.5-5.1 mmol/L Chloride Level 109 H 98-107 mmol/L Carbon Dioxide Level 20 20-31 mmol/L Anion Gap 12 5-15 Blood Urea Nitrogen 52 H 9-23 mg/dL Creatinine 2.51 H 0.550-1.02 mg/dL Glomerular Filtration Rate Calc 20 >90 mL/min BUN/Creatinine Ratio 20.7 H 10.0-20.0 Serum Glucose 70 L 74-106 mg/dL Calcium Level 8.5 L 8.7-10.4 mg/dL Total Bilirubin 0.7 0.2-1.0 mg/dL Aspartate Amino Transferase (AST) 46 H 13-40 U/L Alanine Aminotransferase (ALT) 36 7-40 U/L Alkaline Phosphatase 104 46-116 U/L Ammonia 197 *H 11-32 umol/L Total Protein 4.7 L 5.7-8.2 g/dL Albumin 2.2 L 3.2-4.8 g/dL Current Medications Medications (Trade) Dose Ordered Sig/Leti Route Start Time Stop Time Status Last Admin Pantoprazole Sodium (Protonix) 40 mg ONCE ONCE IV 12/12/24 19:30 12/12/24 19:31 DC 12/12/24 23:02 Ceftriaxone Sodium 50 ml @ 100 mls/hr ONCE ONCE IV 12/12/24 19:30 12/12/24 19:59 DC 12/12/24 23:[address] [address] Ph: [phone] DIAGNOSTIC IMAGING Diagnostic Imaging Report : [id number] Signed PATIENT: GAVIDICKSONGEORGE Lemons ACCT: [id number] UNIT: [id number] : 1950 LOC: ER ROOM / BED: / AGE / SEX: 74 / F ADM STATUS: REG ER SERVICE 56 ORDERING PHYSICIAN: GONZALO PINEDA MD PROCEDURE(s): HWOCT - HEAD WITHOUT CONTRAST REASON: Altered mental status, generalized weakness ORDER NUMBER(s): [id number], ACCESSION NUMBER(s): [id number] EXAM: CT HEAD WITHOUT CONTRAST HISTORY: Altered mental status, generalized weakness COMPARISON: None TECHNIQUE: Axial images were obtained and reformatted in coronal and sagittal planes. All CT scans at this medical facility are performed using dose modulation techniques as appropriate to a performed exam including the following: Automated exposure control was utilized; adjustment of the MA and/or KV according to patient size; and use of iterative reconstruction technique. CT Dose: CTDI volume is 48 mGy. Dose-length product is 395 mGy*cm FINDINGS: Supratentorial Region: No evidence for large acute territorial ischemia. No intracranial hemorrhage is noted. Confluent white matter hypoattenuating foci are noted bilaterally, which typically reflect chronic microvascular ischemic changes. Posterior Fossa: No acute abnormality. Brainstem: Unremarkable. Sellar/Suprasellar Region: Unremarkable. Ventricles, Cisterns, Sulci: Age-appropriate. Orbits: Unremarkable. Paranasal Sinuses: Unremarkable. Mastoid Air Cells: Unremarkable. Vasculature: Unremarkable. Bones/Soft Tissues: No acute abnormality. Other: None. IMPRESSION: 1. No acute intracranial process. ATED BY: ANNA DODGE MD DICTATED DATE/TIME: 12/12/242133 SIGNED BY: ANNA DODGE MD SIGNED DATE/TIME: 12/12/242133 CC: [place] [id number] Ph: [phone] DIAGNOSTIC IMAGING Diagnostic Imaging Report : [id number] Signed PATIENT: GEORGE ZUNIGA ACCT: [id number] UNIT: [id number] : 1950 LOC: ER ROOM / BED: / AGE / SEX: 74 / F ADM STATUS: REG ER SERVICE 56 ORDERING PHYSICIAN: GONZALO PINEDA MD PROCEDURE(s): CXR1 - CHEST XRAY 1 VIEW REASON: Altered mental status, generalized weakness ORDER NUMBER(s): [id number], ACCESSION NUMBER(s): [id number] CHEST RADIOGRAPH Indication: Altered mental status, generalized weakness Technique: Single frontal view of the chest was obtained COMPARISON: Chest AP 10/14/2024 FINDINGS: Lines and Tubes: None Lungs: Lung volumes are low. Mild pulmonary edema. Pleura: No effusion. No pneumothorax. Cardiomediastinal contours: Unremarkable Bones: Unremarkable IMPRESSION: Low lung volumes. Mild pulmonary edema. ATED BY: FERMIN BENITEZ MD DICTATED DATE/TIME: 12/12/242119 SIGNED BY: FERMIN BENITEZ MD SIGNED DATE/TIME: 12/12/242119 CC: Time of 1ST Reevaluation: 21:35 Reevaluation 1ST: Unchanged Patient Education/Counseling: Other Family Education/Counseling: No Family Present Departure 1 Departure Time of Disposition: 21:35 Impression: Primary Impression: Hyperammonemia Additional Impressions: Hepatic encephalopathy Anemia Hematemesis Acute renal failure Disposition: ADMITTED INPATIENT Condition: Stable e-Prescriptions No Active Prescriptions or Reported Meds Comments 74-year-old female with known history of cirrhosis presents with episode of hematemesis at home as well as ascites. Ammonia level found to be elevated, lactulose IL initiated in the emergency department as well as Rocephin and IV fluids.. Extensive evaluation was performed in attempt to identify or rule out: (See differential diagnosis section) The following tests were ordered, and results were reviewed by me: (See diagnostic results section) The following test were independently interpreted by me: EKG I reviewed and agreed with the following test results read by other providers: CT abdomen and pelvis I reviewed the following notes from the pt's past medical encounters: Previous visit for hepatic encephalopathy Additional information was gathered from interviewing the following independent historians: EMS personnel Discussion of management or test interpretation with external physician/other qualified health home care consultant: CLEMENTE Parkinson Addressed an acute or chronic illness that poses a threat to life or bodily function: Hepatic encephalopathy, hyperammonemia, acute renal failure Decision regarding hospitalization or escalation of hospital level of care: Risk and benefits of admission for further treatment of patient's condition was considered. Due to patient's current clinical condition, high risk of decline and poor outcome if discharged and need for further inpatient management and monitoring, patient will be admitted to the hospital. Drug therapy requiring intensive monitoring for toxicity: N/A Parenteral controlled substances: N/A Decision regarding elective major surgery with identified patient or procedure risk factors: N/A Decision regarding emergency major surgery: N/A Decision not to resuscitate or to de-escalate care because of poor prognosis: N/A Diagnosis or treatment significantly limited by social determinants of health: N/A Critical Care Note Critical Care Time?: No Stability Stability form required: No Heart Score Heart Score: Heart Score Response (Comments) Value History N/A 0 EKG N/A 0 Age N/A 0 Risk Factors N/A 0 Troponin N/A 0 Total 0 I personally scribed for GONZALO PINEDA MD ([email or web address]) on 12/12/24 at 19:35. Electronically submitted by Jillian Rankin ([email or web address]). I personally scribed for GONZALO PINEDA MD ([email or web address]) on 12/12/24 at 20:31. Electronically submitted by Jillian Rankin ([email or web address]). I personally scribed for GONZALO PINEDA MD ([email or web address]) on 12/12/24 at 21:56. Electronically submitted by Jillian Rankin ([email or web address]). GONZALO PINEDA MD Dec 12, 2024 19:35
[2024-12-12 20:18] LABS: Basophils # (auto) 0 10 ^3/uL (0-0.2); Basophils % (auto) 1.2 % (0.0-2.0); Eosinophils # (auto) 0 10 ^3/uL (0-0.8); Eosinophils % (auto) 0.2 % (0.0-7.0); Hemoglobin 9.6 g/dL (12.2-16.2); Lymphocytes # (auto) 0.6 10 ^3/uL (0.4-5.4); Lymphocytes % (auto) 23.6 % (10.0-50.0); Mean Corpuscular Hemoglobin 28.7 pg (28.0-32.0); Mean Corpuscular Hgb Conc. 31.8 g/dL (32.0-36.0); Mean Corpuscular Volume 90.3 fL (80.0-100.0); Monocytes # (auto) 0.2 10 ^3/uL (0-1.3); Monocytes % (auto) 5.8 % (0.0-12.0); Neutrophils # (auto) 1.9 10 ^3/uL (1.6-8.6); Neutrophils % (auto) 69.2 % (37.0-80.0); Nucleated Red Blood Cells % 0.6 %; Platelet Count (auto) 75 10^3/uL (140-450); Red Blood Cells 3.33 10^6/uL (4.0-5.20); White Blood Cell 2.7 10^3/uL (4.4-10.8)
[2024-12-12 20:46] LABS: Alanine Aminotransferase 36 U/L (7-40); Alkaline Phosphatase 104 U/L (46-116); Anion Gap 12 (5-15); BUN/Creatinine Ratio 20.7 (10.0-20.0); Sodium 141 mmol/L (136-145)
[2024-12-12 20:47] LABS: Bilirubin, Total 0.7 mg/dL (0.2-1.0)
[2024-12-12 20:54] LABS: INR 1.17 (0.9-1.15); Prothrombin Time 12.2 sec (9.3-11.8)
[2024-12-12 20:56] LABS: Albumin 2.2 g/dL (3.2-4.8); Aspartate Aminotransferase 46 U/L (13-40); Blood Urea Nitrogen 52 mg/dL (9-23); Calcium 8.5 mg/dL (8.7-10.4); Carbon Dioxide 20 mmol/L (20-31); Chloride 109 mmol/L (98-107); Glucose 70 mg/dL (74-106); Potassium 3.4 mmol/L (3.5-5.1); Total Protein 4.7 g/dL (5.7-8.2)
[2024-12-12 20:58] LABS: Lactic Acid w/Reflex 2.1 mmol/L (0.4-2.0)
[2024-12-12 21:00] LABS: Anisocytosis Moderate; Ovalocytes FEW; Platelet Estimate Decreased; Tear Drop Cells FEW
[2024-12-12] MEDS ORDERED: SODIUM CHLORIDE 0.9% 1,000 ML IV ONE (21:00)
--- NOTE | 2024-12-12 21:11 | ECG ---
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
--- NOTE | 2024-12-12 21:22 | DVH ---
CHEST RADIOGRAPH Indication: Altered mental status, generalized weakness Technique: Single frontal view of the chest was obtained COMPARISON: Chest AP 10/14/2024 FINDINGS: Lines and Tubes: None Lungs: Lung volumes are low. Mild pulmonary edema. Pleura: No effusion. No pneumothorax. Cardiomediastinal contours: Unremarkable Bones: Unremarkable IMPRESSION: Low lung volumes. Mild pulmonary edema.
--- NOTE | 2024-12-12 21:36 | DVH ---
EXAM: CT HEAD WITHOUT CONTRAST HISTORY: Altered mental status, generalized weakness COMPARISON: None TECHNIQUE: Axial images were obtained and reformatted in coronal and sagittal planes. All CT scans at this medical facility are performed using dose modulation techniques as appropriate t o a performed exam including the following: Automated exposure control was utilized; adjustment of th e MA and/or KV according to patient size; and use of iterative reconstruction technique. CT Dose: CTDI volume is 48 mGy. Dose-length product is 395 mGy*cm FINDINGS: Supratentorial Region: No evidence for large acute territorial ischemia. No intracranial hemorrhage is noted. Confluent white matter hypoattenuating foci are noted bilaterally, which typically reflect chronic microvascular ischemic changes. Posterior Fossa: No acute abnormality. Brainstem: Unremarkable. Sellar/Suprasellar Region: Unremarkable. Ventricles, Cisterns, Sulci: Age-appropriate. Orbits: Unremarkable. Paranasal Sinuses: Unremarkable. Mastoid Air Cells: Unremarkable. Vasculature: Unremarkable. Bones/Soft Tissues: No acute abnormality. Other: None. IMPRESSION: 1. No acute intracranial process.
--- NOTE | 2024-12-12 21:51 | DVH ---
Exam: CT CT AB PEL WO CON-NO ORAL OR IV History: Ascites, AMS Comparison Study: October 14, 2024 Technique: Multidetector spiral CT of the abdomen was performed from lung bases to pubic symphysis. Imaging was performed without IV contrast. Axial, coronal and sagittal multiplanar reformats were ob tained from the axial data set by the technologist. Radiation Dose : 1. Abdomen/Pelvis: CTDIvol 6.9 mGy, DLP 1281 mGy*cm. Findings: Evaluation of solid organs is limited due to lack of intravenous contrast use. Lung Bases: Mild interstitial pulmonary edema. Trace bilateral pleural effusions. Liver: Cirrhotic liver. Gallbladder and Biliary Tree: Cholelithiasis. Spleen: Unremarkable Pancreas: The pancreas is grossly normal in appearance. Adrenal Glands: Unremarkable Kidneys: Kidneys are grossly normal without calculi or hydronephrosis. Bladder: Grossly unremarkable for degree of distention. Bowel: Large hiatal hernia. Small bowel and colon are normal in caliber and distribution. Normal robert endix is visualized in the right lower quadrant without findings of appendicitis. Ascites: Large volume abdominopelvic ascites. Lymphadenopathy: No mesenteric, retroperitoneal or periportal lymphadenopathy. Abdominal Wall and Mesentery: Unremarkable. Vasculature: The visualized abdominal aorta is normal in size and caliber. Evaluation of abdominal a nd pelvic vessels is limited due to lack of intravenous contrast. Pelvic Organs: Unremarkable. Pessary in place. Musculoskeletal: No aggressive focal bony lesions, acute fractures or dislocation. IMPRESSION: 1. Cirrhotic liver with large volume ascites. 2. Large hiatal hernia. 3. Trace bilateral pleural effusions. 4. Mild interstitial pulmonary edema. Radiation optimization: All CT scans at this facility use at least one of these dose optimization akash hniques: automated exposure control mA and/or kV adjustment per patient size (includes targeted exam s where dose is matched to clinical indication) or iterative reconstruction.
[2024-12-12] MEDS: cefTRIAXone 1GM/50ML D5W 50 ML IV ONE (23:02)
[2024-12-12] MEDS: PANTOPRAZOLE 40 MG/10 ML VIAL INJ IV ONE (23:02)
[2024-12-13] VITALS (71 sets, daily range): BP systolic 86–157; BP diastolic 43–112; PULSE 45–130; RESP 11–18; TEMP 92.5–97.8; O2SAT 95–100
[2024-12-13] MEDS ORDERED: NITROGLYCERIN 0.4 MG SL TAB SL PRN (00:15)
[2024-12-13] MEDS ORDERED: MORPHINE SULFATE INJ 2 MG/ml SYRG IV PRN (00:15)
--- NOTE | 2024-12-13 00:48 | DVH ---
INDICATION: ASCITES TECHNIQUE: Multiple real-time sonographic images of the abdomen were obtained. COMPARISON: None FINDINGS: IMPRESSION: Limited ultrasound examination of the abdomen demonstrates large amount of ascites in all 4 quadrants .
[2024-12-13] MEDS: ALBUMIN 25% 100 ML IV ONE (02:04)
--- NOTE | 2024-12-13 02:12 | DVHHP2 ---
JS ABDULLAHI SEEDLING PULLER 12/13/24 0212: History of Present Illness Reason for Visit: aloc blood in emesis History of Present Illness Information in this HPI is limited due to patient BYRON. 74-year-old female past medical history of liver cirrhosis sent into the emergency department For blood in emesis. At this time patient is alert to her name. Patient found to have elevated ammonia level 197 And large volume ascites. Patient admitted for further evaluation and treatment Hepatobiliary: Cirrhosis Endocrine: Diabetes Past Social History Unable to obtain social history Review of Systems Review of Systems Unable to obtain ROS Allergies: Coded Allergies: NO KNOWN ALLERGIES (Unverified , 10/14/24) Medications Current Medications Medications Dose Ordered Sig/Leti Route Start Time Stop Time Status Last Admin Dose Admin Ondansetron HCl 4 mg Q4HP PRN IV 12/13/24 00:15 Nitroglycerin 0.4 mg Q5MINP PRN SL 12/13/24 00:15 Morphine Sulfate 2 mg Q30M PRN IV 12/13/24 00:15 Lactulose 300 ml Q6HR PA 12/13/24 06:00 Pantoprazole Sodium 40 mg DAILY IV 12/13/24 10:00 Exam Vital Signs Vital Signs Date Time Temp Pulse Resp B/P (MAP) Pulse Ox O2 Delivery O2 Flow Rate FiO2 12/12/24 23:00 80 14 99 Room Air 12/12/24 23:00 98.6 106/64 (78) 98.6 General Appearance: Alert ([place]), moderate distress HEENT: Atraumatic, PERRLA Respiratory: Other (Diminished Air exchange) Cardiovascular: Normal S1, Normal S2 Abdominal: Normal bowel sounds, Other (Round, distended, Firm, ) Extremities: No cyanosis, Other (BLE edematous) Skin: No rashes Neuro: Other (AMS) Psych/Mental Status: Other (Altered) Labs/Xrays Labs Test 12/12/24 21:50 12/12/24 20:00 Range/Units Lactic Acid Level 2.1 *H 0.4-2.0 mmol/L White Blood Count 2.7 L 4.4-10.8 10^3/uL Red Blood Count 3.33 L 4.0-5.20 10^6/uL Hemoglobin 9.6 L 12.2-16.2 g/dL Hematocrit 30.0 L 36.0-46.0 % Mean Corpuscular Volume 90.3 80.0-100.0 fL Mean Corpuscular Hemoglobin 28.7 28.0-32.0 pg Mean Corpuscular Hemoglobin Concent 31.8 L 32.0-36.0 g/dL Red Cell Distribution Width 34.0 H 11.8-14.3 % Platelet Count 75 L 140-450 10^3/uL Mean Platelet Volume 9.3 6.9-10.8 fL Neutrophils (%) (Auto) 69.2 37.0-80.0 % Lymphocytes (%) (Auto) 23.6 10.0-50.0 % Monocytes (%) (Auto) 5.8 0.0-12.0 % Eosinophils (%) (Auto) 0.2 0.0-7.0 % Basophils (%) (Auto) 1.2 0.0-2.0 % Neutrophils # (Auto) 1.9 1.6-8.6 10 ^3/uL Lymphocytes # (Auto) 0.6 0.4-5.4 10 ^3/uL Monocytes # (Auto) 0.2 0-1.3 10 ^3/uL Eosinophils # (Auto) 0 0-0.8 10 ^3/uL Basophils # (Auto) 0 0-0.2 10 ^3/uL Nucleated Red Blood Cells 0.6 % Platelet Estimate Decreased Anisocytosis (manual) Moderate Tear Drop Cells Few Ovalocytes Few Prothrombin Time 12.2 H 9.3-11.8 sec Prothrombin Time INR 1.17 H 0.9-1.15 Sodium Level 141 136-145 mmol/L Potassium Level 3.4 L 3.5-5.1 mmol/L Chloride Level 109 H 98-107 mmol/L Carbon Dioxide Level 20 20-31 mmol/L Anion Gap 12 5-15 Blood Urea Nitrogen 52 H 9-23 mg/dL Creatinine 2.51 H 0.550-1.02 mg/dL Glomerular Filtration Rate Calc 20 >90 mL/min BUN/Creatinine Ratio 20.7 H 10.0-20.0 Serum Glucose 70 L 74-106 mg/dL Calcium Level 8.5 L 8.7-10.4 mg/dL Total Bilirubin 0.7 0.2-1.0 mg/dL Aspartate Amino Transferase (AST) 46 H 13-40 U/L Alanine Aminotransferase (ALT) 36 7-40 U/L Alkaline Phosphatase 104 46-116 U/L Ammonia 197 *H 11-32 umol/L Total Protein 4.7 L 5.7-8.2 g/dL Albumin 2.2 L 3.2-4.8 g/dL Assessment/Plan Assessment/Plan Hepatic Encephalopathy Hyperammonemia Liver cirrhosis Large volume ascites Thrombocytopenia Anemia, chronic GER on CKD Lactic acidosis Plan Admit to telemetry / Due to change condition patient upgraded to SDU Consult gastroenterology. Lactulose enema every 6 hours Consult interventional radiology for paracentesis Consult Nephrology. Monitor BMP. Trend BUN/creatinine. Correct electrolytes as needed. strict intake and output. FC. Monitor LA, CBC fall precautions GI ppx protonix / DVT ppx scd Condition critical prognosis poor Patient condition, Results and prognosis discussed with patient's Family member Nani via telephone. Patient remains full code at this time. Plan discussed with: Patient, Daughter, Other My Orders Orders - JS ABDULLAHI NP Procedure Category Date Status Time Admit ADMIT 12/13/24 Transmitted 00:02 Code Status CODE 12/13/24 Transmitted 00:02 Vital Signs [facility] [place] 12/13/24 In Process 00:02 Review Orders With ARCHANA 12/13/24 In Process Adm. 00:02 Encourage Activity As [facility] 12/13/24 In Process Tolerate 00:02 Npo (Nothing By DIET 12/13/24 Transmitted Mouth) Diet Breakfast Oxygen By Face Mask RT 12/13/24 Transmitted 00:02 Notify Of Changes [facility]NA 12/13/24 In Process From Base 00:02 Advance Directive [facility]NA 12/13/24 In Process 00:02 Basic Metabolic Panel LAB 12/13/24 Logged 00:02 Urinalysis LAB 12/13/24 Logged 00:02 Complete Blood Count LAB 12/13/24 Logged 00:02 Patient Condition ORDERS 12/13/24 Transmitted 00:02 Allergies ARCHANA 12/13/24 In Process 00:02 Ondansetron Hcl PHA 12/13/24 In Process (Zofran) 00:15 Sequential [facility]NA 12/13/24 In Process Compression Device Nitroglycerin PHA 12/13/24 In Process Sublingual (Ntrostat 00:15 Morphine Sulfate PHA 12/13/24 In Process Injection 00:15 Stat Ekg For Chest AR[facility]NA 12/13/24 In Process Pain 00:02 Notify Of Changes AR[facility]NA 12/13/24 In Process From Base 00:02 Mold Mover For ARCHANA 12/13/24 In Process 24 Hours 00:02 Emergency Dysrhythmia AR[facility]NA 12/13/24 In Process Protocol 00:02 Rhythm Strips Once [facility]NA 12/13/24 In Process Every Shift 00:02 Oxygen By Nasal RT 12/13/24 Transmitted Cannula 00:02 Lactulose Rectal PHA 12/13/24 In Process 06:00 *[facility] CONS 12/13/24 Transmitted 00:02 Fall Precautions ACRHANA 12/13/24 In Process Initiated 00:02 Paracentesis US 12/13/24 Logged 00:02 Pantoprazole PHA 12/13/24 In Process (Protonix) 10:00 Communication Order ORDERS 12/13/24 Transmitted 00:19 *Dr. Gabe Ascencio CONS 12/13/24 Transmitted -[place] 01:57 Date of Service: Dec 13, 2024 Billing Provider: ABHISHEK FINE MD Common Visit Codes: NOT BILLABLE ABHISHEK FINE MD 12/13/24 1734: Review of Systems Allergies: Coded Allergies: NO KNOWN ALLERGIES (Unverified , 10/14/24) Assessment/Plan Assessment/Plan Patient is seen and evaluated in the ICU. Patient's chart is reviewed and discussed with the nurse practitioner. Patient seen evaluated and admitted by nurse practitioner conductor pullman. I agree with his evaluation, documentation, assessment and care plan as outlined. Plan discussed with: JS Le NP Dec 13, 2024 02:12 ABHISHEK FINE MD Dec 13, 2024 17:34
[2024-12-13] MEDS: LACTULOSE 10g/15ml SOLN 473ML PR ONE ×2 (02:58→04:24)
[2024-12-13 04:18] LABS: Base Excess -3.9 mmol/L (-2.0-3.0)
[2024-12-13] MEDS: SODIUM CHLORIDE 0.9% 500 ML IV ONE (04:24)
[2024-12-13 04:29] LABS: Potassium 3.5 mmol/L (3.5-5.1); Sodium 142 mmol/L (136-145)
[2024-12-13 04:30] LABS: Anion Gap 13 (5-15); Calcium 8.7 mg/dL (8.7-10.4)
[2024-12-13 04:35] LABS: Glucose 75 mg/dL (74-106)
[2024-12-13 04:38] LABS: Basophils # (auto) 0 10 ^3/uL (0-0.2); Basophils % (auto) 0.6 % (0.0-2.0); Eosinophils # (auto) 0 10 ^3/uL (0-0.8); Eosinophils % (auto) 0.2 % (0.0-7.0); Hematocrit 25.4 % (36.0-46.0); Hemoglobin 8.2 g/dL (12.2-16.2); Lymphocytes # (auto) 0.9 10 ^3/uL (0.4-5.4); Lymphocytes % (auto) 27.2 % (10.0-50.0); Mean Corpuscular Hgb Conc. 32.3 g/dL (32.0-36.0); Mean Corpuscular Volume 89.9 fL (80.0-100.0); Monocytes # (auto) 0.2 10 ^3/uL (0-1.3); Monocytes % (auto) 6.8 % (0.0-12.0); Neutrophils # (auto) 2.1 10 ^3/uL (1.6-8.6); Neutrophils % (auto) 65.2 % (37.0-80.0); Nucleated Red Blood Cells % 0.1 %; Platelet Count (auto) 60 10^3/uL (140-450); Red Blood Cells 2.83 10^6/uL (4.0-5.20); White Blood Cell 3.3 10^3/uL (4.4-10.8)
[2024-12-13 04:39] LABS: Blood Urea Nitrogen 62 mg/dL (9-23); Carbon Dioxide 20 mmol/L (20-31); Chloride 109 mmol/L (98-107)
--- NOTE | 2024-12-13 04:43 | DVH ---
CHEST RADIOGRAPH Indication: DECOMPENSATION Technique: Single frontal view of the chest was obtained Comparison: 12/12/2024 FINDINGS: Lines and Tubes: None Lungs: Bilateral pulmonary vascular congestion. Pleura: No effusion. No pneumothorax. Cardiomediastinal contours: Stable cardiovascular silhouette. Bones: No acute osseous abnormality. IMPRESSION: 1. Stable pulmonary vascular congestion.
[2024-12-13 04:52] LABS: Red Cell Distribution Width 33.8 % (11.8-14.3)
[2024-12-13 05:45] LABS: Anisocytosis Moderate; Tear Drop Cells FEW
[2024-12-13 05:46] LABS: Ovalocytes FEW; Platelet Estimate Decreased
[2024-12-13] MEDS: LACTULOSE 10g/15ml SOLN 473ML PR SCH (06:00)
[2024-12-13] MEDS: SODIUM CHLORIDE 0.9% 500 ML IV SCH (06:33)
[2024-12-13] MEDS: ROCURONIUM 10MG/ML 10ML VIAL IV ONE ×2 (06:37→06:40)
[2024-12-13] MEDS: ETOMIDATE (2MG/ML) 20ML VIAL IV ONE ×2 (06:38→06:39)
[2024-12-13] MEDS: PROPOFOL 100 ML IV ONE (07:00)
--- NOTE | 2024-12-13 07:10 | DVH ---
EXAM: XR Chest, 1 View CLINICAL INDICATION: S/P INTUBATION TECHNIQUE: Frontal view of the chest. COMPARISON: XY CHEST XRAY 1 VIEW on DOS: 12/13/24, XY CHEST XRAY 1 VIEW on DOS: 12/12/24, XY CHEST PO RTABLE on DOS: 10/14/24 FINDINGS: LUNGS AND PLEURAL SPACES: Pulmonary venous congestion. No consolidation. No pneumothorax. HEART: Unremarkable. No cardiomegaly. MEDIASTINUM: Unremarkable. Normal mediastinal contour. BONES/JOINTS: Unremarkable. No acute fracture. OTHER FINDINGS: . . . .. IMPRESSION: Pulmonary venous congestion.
[2024-12-13 07:14] LABS: Urine Bacteria MANY /hpf (None Seen); Urine Blood TRACE /uL (Negative); Urine Clarity Turbid (Clear); Urine Color Yellow (Yellow); Urine Hyaline Cast FEW /lpf (0 - 2); Urine Mucus FEW (None Seen); Urine Protein, UAD TRACE (Negative); Urine Specific Gravity 1.016 (1.001-1.035); Urine Squamous Epithelial Cell FEW /hpf (<5); Urine Urobilinogen Normal (Negative); Urine WBC 177 /HPF (0-5); Urine WBC Clumps PRESENT /hpf (None Seen); Urine pH 5.5 (5.0-9.0)
[2024-12-13] MEDS: NOREPINEPHRINE 8 MG/250ML KIT 250 ML IV SCH (08:15)
[2024-12-13] MEDS: PROPOFOL 100 ML IV SCH (08:39)
--- NOTE | 2024-12-13 09:33 | ED.PDOC ---
Was a procedure done? 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: Attending Physician Indication: Hypotension, Volume resuscitation Room prepared for procedure: Yes [employer] Planting Equipment Operator performed hand hygien: Yes Maximal sterile barrier precau: Mask/Eye shield, Sterlie gloves, Large sterlie drape Skin Preparation: Chlorhexidine gluconate Skin preparation completely dr: Yes Insertion site: Right, Femoral Central line catheter type: [id number] dialysis Number of lumens: 3 Central line exchanged over a: Yes Antiseptic ointment applied to: Yes Post Assessment: Proper placement Informed consent obtained: No Risks/benefits/alt described: No Intubation Indication: Respiratory Insufficiency, Altered Mental Status Prep: Preoxygenation Pretreated with: Other (Etomidate) Medicated with: Other (Rocuronium) Intubation Approach: Orotracheal Intubation size: cm (8) Informed consent obtained: No Risks/benefits/alt described: No Critical Care Note Critical Care Time?: Yes Critical care comment: Acute respiratory failure Authorized and Performed by: Bobby Babb MD Total critical care time: Approximately 49 minutes Due to a high probability of clinically significant, life threatening deterioration, the patient required my highest level of preparedness to intervene emergently and I personally spent this critical care time directly and personally managing the patient. This critical care time included obtaining a history; examining the patient; pulse oximetry; ordering and review of studies; arranging urgent treatment with development of a management plan; evaluation of patient's response to treatment; frequent reassessment; and, discussions with other providers. This critical care time was performed to assess and manage the high probability of imminent, life-threatening deterioration that could result in multi-organ failure. It was exclusive of separately billable procedures and treating other patients and teaching time. Please see my other sections and the rest of the note for further information on patient assessment and treatment. BOBBY BABB MD Dec 13, 2024 09:33
[2024-12-13 09:39] LABS: Base Excess -7.3 mmol/L (-2.0-3.0)
[2024-12-13] MEDS: fentaNYL Drip 2500mCg/250mlNS 250 ML IV SCH (10:00)
[2024-12-13] MEDS: cefTRIAXone 1GM/50ML D5W 50 ML IV SCH (10:35)
[2024-12-13] MEDS: SODIUM BICARB 8.4% 50Meq/50ml SYR Vial IV ONE (10:35)
[2024-12-13] MEDS: PANTOPRAZOLE 40 MG/10 ML VIAL INJ IV SCH ×2 (10:37→21:47)
[2024-12-13] MEDS: ALBUMIN 25% 50 ML IV ONE (10:37)
[2024-12-13] MEDS ORDERED: PANTOPRAZOLE 40 MG/10 ML VIAL INJ IV ONE (10:45)
[2024-12-13] MEDS ORDERED: cefTRIAXone 2GM/50ML D5W 50 ML IV ONE (10:45)
--- NOTE | 2024-12-13 10:49 | DVH ---
PROCEDURE: ULTRASOUND GUIDED PARACENTESIS HISTORY: 74 Female requiring paracentesis. TECHNIQUE: The risks and benefits of the procedure including but not limited to bleeding, infection and injury t o abdominal organs were explained to the patient and written informed consent was obtained. Optimal site for puncture was determined using ultrasound and the area sterilized and draped. Using a 5 [employer] [employer] catheter, paracentesis was performed in the right lower quadrant abdomen. Approximate ly 6.9 liters of serous fluid was removed. The patient tolerated the procedure well. There were no immediate complications. IMPRESSION: Ultrasound-guided paracentesis with no immediate complications.
--- NOTE | 2024-12-13 12:15 | DVHINCON2 ---
Date of service: Dec 13, 2024 Referring Physician Salvador Arias, nurse practitioner Reason for Consultation Acute kidney injury History of Present Illness Patient is a 74-year-old female past medical history of liver cirrhosis is admitted for altered level of consciousness. Patient intubated in the ER for airway protection on the ventilator. On admission patient found to have elevated BUN and creatinine nephrology is consulted for acute kidney injury Past Medical History Liver cirrhosis, ascites Past Surgical History Unknown Allergies: Coded Allergies: NO KNOWN ALLERGIES (Unverified , 10/14/24) Home Meds No Active Prescriptions or Reported Meds Current Medications Current Medications Medications (Trade) Dose Ordered Sig/Leti Route PRN Reason Start Time Stop Time Status Last Admin Ondansetron HCl (Zofran) 4 mg Q4HP PRN IV NAUSEA / VOMITING 12/13/24 00:15 Nitroglycerin (Ntrostat Sublingual) 0.4 mg Q5MINP PRN SL FOR CHEST PAIN 12/13/24 00:15 Morphine Sulfate 2 mg Q30M PRN IV FOR CHEST PAIN 12/13/24 00:15 Lactulose 300 ml Q6HR MN 12/13/24 06:00 Pantoprazole Sodium (Protonix) 40 mg DAILY IV 12/13/24 10:00 12/13/24 10:52 DC 12/13/24 10:37 Ceftriaxone Sodium 50 ml @ 100 mls/hr DAILY@1999 IV 12/13/24 20:00 Cancel Sodium Chloride 500 ml @ 100 mls/hr Q5H IV 12/13/24 06:15 12/13/24 10:52 DC 12/13/24 06:33 Propofol 100 ml @ 1.8 mls/hr Q24H IV 12/13/24 07:00 12/13/24 08:39 Norepinephrine Bitartrate 250 ml @ 3.75 mls/hr Q24H IV 12/13/24 08:15 Fentanyl Citrate 250 ml @ 2.5 mls/hr Q24H IV 12/13/24 10:00 Ceftriaxone Sodium 50 ml @ 100 mls/hr DAILY@ IV 12/13/24 10:00 12/13/24 10:52 DC 12/13/24 10:35 Pantoprazole Sodium (Protonix) 40 mg BID IV 12/13/24 22:00 Octreotide Acetate 500 mcg/ Sodium Chloride 100 ml @ 10 mls/hr Q10H IV 12/13/24 10:45 12/13/24 13:37 Ceftriaxone Sodium/Dextrose 50 ml @ 50 mls/hr DAILY IV 12/14/24 10:00 Family History: Alzheimer's disease Cerebrovascular accident (CVA) G8 SISTER G8 SISTER Review of Systems Can not be obtained H&P Exam Vital Signs/I&O Vital Sign Date Time Temp Pulse Resp B/P (MAP) Pulse Ox O2 Delivery O2 Flow Rate FiO2 12/13/24 12:45 89 16 138/90 (106) 99 30 12/13/24 12:00 Mechanical Ventilator+ 12/13/24 08:36 97.8 60.0 97.8 Physical Exam Patient intubated on ventilator and sedated Lungs clear to auscultation bilaterally Cardiac exam regular rate and rhythm GI ascites, bowel sounds positive Issa catheter Extremities no clubbing cyanosis or edema Neuro patient was sedated Labs/Diagnostic Data Labs/Diagnostic Data Laboratory Tests Test 12/13/24 11:57 12/13/24 10:15 12/13/24 09:15 12/13/24 06:00 Range/Units Hemoglobin 7.4 L 12.2-16.2 g/dL Hematocrit 23.2 L 36.0-46.0 % Ammonia 127 *H 11-32 umol/L Parathyroid Hormone (Intact) 140.8 H 18.4-80.1 pg/mL Body Fluid Source Peritoneal fluid Body Fluid pH 8.0 Body Fluid WBC (Manual) 29 0-200 CUMM Body Fluid RBC (Manual) 127 0-2000 CUMM Body Fluid Mononuclear Cells 95 % Body Fluid Polymorphonuclear Cells 5 0-25 % Blood Gas Specimen Type Arterial Blood Gas Sample Site Left radial Blood Gas Patient Temperature 37.0 Arterial Blood Date Drawn [id number] Arterial Blood pH 7.394 7.350-7.450 Arterial Blood Partial Pressure CO2 27.8 L 32.0-45.0 mmHg Arterial Blood Partial Pressure O2 217.8 H 83.0-108.0 mmHg Arterial Blood HCO3 16.6 L 21.0-28.0 mmol/L Arterial Blood Oxygen Saturation 99.0 H 94.0-98.0 % Arterial Blood Base Excess -7.3 L -2.0-3.0 mmol/L Arterial Blood Oxyhemoglobin 97.8 94.0-98.0 % Arterial Blood Carboxyhemoglobin 0.3 L 0.5-1.5 % Arterial Blood Methemoglobin 0.9 0.0-1.5 % Shviam Test Modified Blood Gas Total Hemoglobin 8.90 L 12.0-16.0 g/dL Blood Gas Set Respiration Rate 16.0 Blood Gas Modality Vent - ac FiO2 % 50.0 Blood Gas Tidal Volume 450.0 Blood Gas PEEP or CPAP 5.0 Urine Color Yellow Yellow Urine Clarity Turbid H Clear Urine pH 5.5 5.0-9.0 Urine Specific [place] 1.016 1.001-1.035 Urine Protein Trace H Negative Urine Ketones Negative Negative Urine Blood Trace H Negative /uL Urine Nitrite Negative Negative Urine Bilirubin Negative Negative Urine Urobilinogen Normal Negative mg/dL Urine Leukocyte Esterase 3+ Negative /uL Urine RBC 2 0 - 4 /hpf Urine WBC Clumps Present None Seen /hpf Urine Microscopic WBC 177 H 0-5 /HPF Urine Squamous Epithelial Cells Few <5 /hpf Urine Bacteria Many H None Seen /hpf Urine Hyaline Casts Few 0 - 2 /lpf Urine Mucus Few None Seen Urine Glucose Normal Normal mg/dL Test 12/13/24 04:10 12/13/24 04:08 12/12/24 21:50 12/12/24 20:00 Range/Units Blood Gas Specimen Type Arterial Blood Gas Sample Site Left radial Blood Gas Patient Temperature 37.0 Arterial Blood Date Drawn [id number] Arterial Blood pH 7.499 H 7.350-7.450 Arterial Blood Partial Pressure CO2 24.4 L 32.0-45.0 mmHg Arterial Blood Partial Pressure O2 173.6 H 83.0-108.0 mmHg Arterial Blood HCO3 18.6 L 21.0-28.0 mmol/L Arterial Blood Oxygen Saturation 99.0 H 94.0-98.0 % Arterial Blood Base Excess -3.9 L -2.0-3.0 mmol/L Arterial Blood Oxyhemoglobin 97.6 94.0-98.0 % Arterial Blood Carboxyhemoglobin 0.5 0.5-1.5 % Arterial Blood Methemoglobin 0.9 0.0-1.5 % Shivam Test Modified Blood Gas Total Hemoglobin 7.90 L 12.0-16.0 g/dL Blood Gas Liter Flow 2.00 Blood Gas Modality Nasal cannula FiO2 % 28.0 White Blood Count 3.3 L 2.7 L 4.4-10.8 10^3/uL Red Blood Count 2.83 L 3.33 L 4.0-5.20 10^6/uL Hemoglobin 8.2 L 9.6 L 12.2-16.2 g/dL Hematocrit 25.4 #L 30.0 L 36.0-46.0 % Mean Corpuscular Volume 89.9 90.3 80.0-100.0 fL Mean Corpuscular Hemoglobin 29.0 28.7 28.0-32.0 pg Mean Corpuscular Hemoglobin Concent 32.3 31.8 L 32.0-36.0 g/dL Red Cell Distribution Width 33.8 H 34.0 H 11.8-14.3 % Platelet Count 60 L 75 L 140-450 10^3/uL Mean Platelet Volume 9.3 9.3 6.9-10.8 fL Neutrophils (%) (Auto) 65.2 69.2 37.0-80.0 % Lymphocytes (%) (Auto) 27.2 23.6 10.0-50.0 % Monocytes (%) (Auto) 6.8 5.8 0.0-12.0 % Eosinophils (%) (Auto) 0.2 0.2 0.0-7.0 % Basophils (%) (Auto) 0.6 1.2 0.0-2.0 % Neutrophils # (Auto) 2.1 1.9 1.6-8.6 10 ^3/uL Lymphocytes # (Auto) 0.9 0.6 0.4-5.4 10 ^3/uL Monocytes # (Auto) 0.2 0.2 0-1.3 10 ^3/uL Eosinophils # (Auto) 0 0 0-0.8 10 ^3/uL Basophils # (Auto) 0 0 0-0.2 10 ^3/uL Nucleated Red Blood Cells 0.1 0.6 % Platelet Estimate Decreased Decreased Anisocytosis (manual) Moderate Moderate Tear Drop Cells Few Few Ovalocytes Few Few [place] Cells Few Sodium Level 142 141 136-145 mmol/L Potassium Level 3.5 3.4 L 3.5-5.1 mmol/L Chloride Level 109 H 109 H 98-107 mmol/L Carbon Dioxide Level 20 20 20-31 mmol/L Anion Gap 13 12 5-15 Blood Urea Nitrogen 62 #H 52 H 9-23 mg/dL Creatinine 2.58 H 2.51 H 0.550-1.02 mg/dL Glomerular Filtration Rate Calc 19 20 >90 mL/min BUN/Creatinine Ratio 24.0 H 20.7 H 10.0-20.0 Serum Glucose 75 70 L 74-106 mg/dL Calcium Level 8.7 8.5 L 8.7-10.4 mg/dL Phosphorus Level 3.7 2.4-5.1 mg/dL Magnesium Level 2.6 1.6-2.6 mg/dL Vitamin D 25-Hydroxy 41.3 30.0-100 ng/mL Hepatitis B Surface Antigen Negative Negative Hepatitis C Antibody Negative Negative Lactic Acid Level 2.1 *H 2.1 *H 0.4-2.0 mmol/L Prothrombin Time 12.2 H 9.3-11.8 sec Prothrombin Time INR 1.17 H 0.9-1.15 Total Bilirubin 0.7 0.2-1.0 mg/dL Aspartate Amino Transferase (AST) 46 H 13-40 U/L Alanine Aminotransferase (ALT) 36 7-40 U/L Alkaline Phosphatase 104 46-116 U/L Ammonia 197 *H 11-32 umol/L Total Protein 4.7 L 5.7-8.2 g/dL Albumin 2.2 L 3.2-4.8 g/dL Assessment Acute kidney injury superimposed Chronic 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 IV antibiotics Albumin 25% IVPB Paracentesis Octreotide Lactulose We will continue to follow Patient seen and examined by myself. I discussed my plan of care with the primary nurse at the bedside I would like to thank Salvador for the consult, will follow Plan discussed with: Other (Nurse) ZAINAB QUIJANO MD Dec 13, 2024 12:14
[2024-12-13 12:19] LABS: Hemoglobin 7.4 g/dL (12.2-16.2)
[2024-12-13 12:22] LABS: Hematocrit 23.2 % (36.0-46.0)
[2024-12-13 12:37] LABS: Magnesium 2.6 mg/dL (1.6-2.6)
[2024-12-13 12:38] LABS: Phosphorus 3.7 mg/dL (2.4-5.1)
[2024-12-13] MEDS: OCTREOTIDE ACETATE 50 MCG in SODIUM CHL 0.9% 50 ML IV ONE (13:05)
[2024-12-13 13:07] LABS: Body Fluid Polymorphonuclear 5 % (0-25); Body Fluid Red Blood Cells 127 CUMM (0-2000); Body Fluid White Blood Cells 29 CUMM (0-200)
[2024-12-13] MEDS: PHYTONADIONE (VIT K)10 MG/ML 1ML VIAL SUBCUT ONE (13:15)
[2024-12-13] MEDS: PANTOPRAZOLE 40 MG/10 ML VIAL INJ IV ONE (13:16)
[2024-12-13 13:32] LABS: Hepatitis B Surface Antigen Negative (Negative); Hepatitis C Antibody Negative (Negative)
[2024-12-13] MEDS: OCTREOTIDE ACETATE 500 MCG in SODIUM CHL 0.9% 99 ML IV SCH (13:37)
--- NOTE | 2024-12-13 14:29 | DVH ---
INDICATION: elieser TECHNIQUE: Multiple real-time sonographic images of the kidneys and bladder were obtained. COMPARISON: None FINDINGS: The right kidney measures 8 cm in length, which is normal in size. No hydronephrosis. The left kidney measures 9 cm in length, which is normal in size. No hydronephrosis. No large intraluminal masses are seen in the bladder. IMPRESSION: Bilateral minimal renal disease. Small volume ascites.
[2024-12-13] MEDS: cefTRIAXone 1GM/50ML D5W 50 ML IV ONE (14:43)
--- NOTE | 2024-12-13 16:11 | DVHCONRES ---
Date Seen: Dec 13, 2024 Resident Creating Document: PATRICIA BRITTON RESIDENT Referring Physician Hugo Reason for Consultation GI bleed History of Present Illness Patient is 74-year-old female with known medical history of liver cirrhosis who brought to the hospital for altered mental level of consciousness. Over the night of hospitalization patient's mental status continued to be worsened, early in the morning on 12/13/2024 patient started having hematemesis and patient was intubated in ER for airway protection and started on mechanical ventilation. GI consultation has been done for GI bleed and management of liver cirrhosis. Past Medical History Liver cirrhosis, esophageal varices, end-stage liver disease with the ascites , hepatic encephalopathy Past Surgical History History of paracentesis Family History: Alzheimer's disease Cerebrovascular accident (CVA) G8 SISTER G8 SISTER Allergies: Coded Allergies: NO KNOWN ALLERGIES (Unverified , 10/14/24) Home Meds No Active Prescriptions or Reported Meds Current Medications Current Medications Medications (Trade) Dose Ordered Sig/Leti Route PRN Reason Start Time Stop Time Status Last Admin Ondansetron HCl (Zofran) 4 mg Q4HP PRN IV NAUSEA / VOMITING 12/13/24 00:15 Nitroglycerin (Ntrostat Sublingual) 0.4 mg Q5MINP PRN SL FOR CHEST PAIN 12/13/24 00:15 Morphine Sulfate 2 mg Q30M PRN IV FOR CHEST PAIN 12/13/24 00:15 Lactulose 300 ml Q6HR NM 12/13/24 06:00 Pantoprazole Sodium (Protonix) 40 mg DAILY IV 12/13/24 10:00 12/13/24 10:52 DC 12/13/24 10:37 Ceftriaxone Sodium 50 ml @ 100 mls/hr DAILY@1999 IV 12/13/24 20:00 Cancel Sodium Chloride 500 ml @ 100 mls/hr Q5H IV 12/13/24 06:15 12/13/24 10:52 DC 12/13/24 06:33 Propofol 100 ml @ 1.8 mls/hr Q24H IV 12/13/24 07:00 12/13/24 08:39 Norepinephrine Bitartrate 250 ml @ 3.75 mls/hr Q24H IV 12/13/24 08:15 Fentanyl Citrate 250 ml @ 2.5 mls/hr Q24H IV 12/13/24 10:00 Ceftriaxone Sodium 50 ml @ 100 mls/hr DAILY@09 IV 12/13/24 10:00 12/13/24 10:52 DC 12/13/24 10:35 Pantoprazole Sodium (Protonix) 40 mg BID IV 12/13/24 22:00 Octreotide Acetate 500 mcg/ Sodium Chloride 100 ml @ 10 mls/hr Q10H IV 12/13/24 10:45 12/13/24 13:37 Ceftriaxone Sodium/Dextrose 50 ml @ 50 mls/hr DAILY IV 12/14/24 10:00 Review of Systems ROS can not be obtained given patient is intubated and sedated. Vital Signs Vital Signs Date Time Temp Pulse Resp B/P (MAP) Pulse Ox O2 Delivery O2 Flow Rate FiO2 12/13/24 15:38 97.0 70 16 88/52 97.0 12/13/24 14:00 30 12/13/24 14:00 100 Mechanical Ventilator+ 12/13/24 08:36 60.0 Physical Exam General Appearance: Intubated, sedated on mechanical ventilation. Head Exam: Normal inspection Neck Exam: Normal inspection. Non-tender. Normal alignment Pulmonary/Respiratory: Chest non-tender. Clear bilateral breath sounds Cardiovascular/Chest: Regular rate and rhythm. No murmurs. No JVD. Peripheral Pulses: 2+ Radial (R). 2+ Radial (L). 2+ Pedal (R). 2+ Pedal (L) Abdominal Exam: Abdomen is soft, nontender. Positive bowel sounds. Ankle Exam: Negative ankle edema Lower extremities: 2+ lower extremity edema, chronic venous stasis. Neuro/Mental Status: A&O x4. Coherent Thoughts/Psych: Normal thought pattern. Appropriate mood and affect. Good judgement and insight Appearance: In no acute distress Skin Exam: Normal inspection. Normal color. Warm. Dry Labs/Diagnostic Data Labs Test 12/13/24 11:57 12/13/24 10:15 12/13/24 09:15 12/13/24 06:00 Range/Units Hemoglobin 7.4 L 12.2-16.2 g/dL Hematocrit 23.2 L 36.0-46.0 % Ammonia 127 *H 11-32 umol/L Parathyroid Hormone (Intact) 140.8 H 18.4-80.1 pg/mL Body Fluid Source Peritoneal fluid Body Fluid pH 8.0 Body Fluid WBC (Manual) 29 0-200 CUMM Body Fluid RBC (Manual) 127 0-2000 CUMM Body Fluid Mononuclear Cells 95 % Body Fluid Polymorphonuclear Cells 5 0-25 % Blood Gas Specimen Type Arterial Blood Gas Sample Site Left radial Blood Gas Patient Temperature 37.0 Arterial Blood Date Drawn [id number] Arterial Blood pH 7.394 7.350-7.450 Arterial Blood Partial Pressure CO2 27.8 L 32.0-45.0 mmHg Arterial Blood Partial Pressure O2 217.8 H 83.0-108.0 mmHg Arterial Blood HCO3 16.6 L 21.0-28.0 mmol/L Arterial Blood Oxygen Saturation 99.0 H 94.0-98.0 % Arterial Blood Base Excess -7.3 L -2.0-3.0 mmol/L Arterial Blood Oxyhemoglobin 97.8 94.0-98.0 % Arterial Blood Carboxyhemoglobin 0.3 L 0.5-1.5 % Arterial Blood Methemoglobin 0.9 0.0-1.5 % Shivam Test Modified Blood Gas Total Hemoglobin 8.90 L 12.0-16.0 g/dL Blood Gas Set Respiration Rate 16.0 Blood Gas Modality Vent - ac FiO2 % 50.0 Blood Gas Tidal Volume 450.0 Blood Gas PEEP or CPAP 5.0 Urine Color Yellow Yellow Urine Clarity Turbid H Clear Urine pH 5.5 5.0-9.0 Urine Specific [place] 1.016 1.001-1.035 Urine Protein Trace H Negative Urine Ketones Negative Negative Urine Blood Trace H Negative /uL Urine Nitrite Negative Negative Urine Bilirubin Negative Negative Urine Urobilinogen Normal Negative mg/dL Urine Leukocyte Esterase 3+ Negative /uL Urine RBC 2 0 - 4 /hpf Urine WBC Clumps Present None Seen /hpf Urine Microscopic WBC 177 H 0-5 /HPF Urine Squamous Epithelial Cells Few <5 /hpf Urine Bacteria Many H None Seen /hpf Urine Hyaline Casts Few 0 - 2 /lpf Urine Mucus Few None Seen Urine Glucose Normal Normal mg/dL Test 12/13/24 04:10 12/13/24 04:08 12/12/24 21:50 12/12/24 20:00 Range/Units Blood Gas Liter Flow 2.00 White Blood Count 3.3 L 4.4-10.8 10^3/uL Red Blood Count 2.83 L 4.0-5.20 10^6/uL Mean Corpuscular Volume 89.9 80.0-100.0 fL Mean Corpuscular Hemoglobin 29.0 28.0-32.0 pg Mean Corpuscular Hemoglobin Concent 32.3 32.0-36.0 g/dL Red Cell Distribution Width 33.8 H 11.8-14.3 % Platelet Count 60 L 140-450 10^3/uL Mean Platelet Volume 9.3 6.9-10.8 fL Neutrophils (%) (Auto) 65.2 37.0-80.0 % Lymphocytes (%) (Auto) 27.2 10.0-50.0 % Monocytes (%) (Auto) 6.8 0.0-12.0 % Eosinophils (%) (Auto) 0.2 0.0-7.0 % Basophils (%) (Auto) 0.6 0.0-2.0 % Neutrophils # (Auto) 2.1 1.6-8.6 10 ^3/uL Lymphocytes # (Auto) 0.9 0.4-5.4 10 ^3/uL Monocytes # (Auto) 0.2 0-1.3 10 ^3/uL Eosinophils # (Auto) 0 0-0.8 10 ^3/uL Basophils # (Auto) 0 0-0.2 10 ^3/uL Nucleated Red Blood Cells 0.1 % Platelet Estimate Decreased Anisocytosis (manual) Moderate Tear Drop Cells Few Ovalocytes Few Praful Cells Few Sodium Level 142 136-145 mmol/L Potassium Level 3.5 3.5-5.1 mmol/L Chloride Level 109 H 98-107 mmol/L Carbon Dioxide Level 20 20-31 mmol/L Anion Gap 13 5-15 Blood Urea Nitrogen 62 #H 9-23 mg/dL Creatinine 2.58 H 0.550-1.02 mg/dL Glomerular Filtration Rate Calc 19 >90 mL/min BUN/Creatinine Ratio 24.0 H 10.0-20.0 Serum Glucose 75 74-106 mg/dL Calcium Level 8.7 8.7-10.4 mg/dL Phosphorus Level 3.7 2.4-5.1 mg/dL Magnesium Level 2.6 1.6-2.6 mg/dL Vitamin D 25-Hydroxy 41.3 30.0-100 ng/mL Hepatitis B Surface Antigen Negative Negative Hepatitis C Antibody Negative Negative Lactic Acid Level 2.1 *H 0.4-2.0 mmol/L Prothrombin Time 12.2 H 9.3-11.8 sec Prothrombin Time INR 1.17 H 0.9-1.15 Total Bilirubin 0.7 0.2-1.0 mg/dL Aspartate Amino Transferase (AST) 46 H 13-40 U/L Alanine Aminotransferase (ALT) 36 7-40 U/L Alkaline Phosphatase 104 46-116 U/L Total Protein 4.7 L 5.7-8.2 g/dL Albumin 2.2 L 3.2-4.8 g/dL Assessment Liver cirrhosis Hepatic encephalopathy Esophageal variceal bleeding Moderate ascites Hypoalbuminemia Hyperammonemia Upper GI bleed Thrombocytopenia GER hemodynamically mediated UTI Plan/recommendation. Dr Foley Plan for EGD tomorrow. -initiated octreotide, 50 mcg bolus, continuous 50 microgram/hour -given bolus of 80 mg IV Protonix, continue with Protonix 40 mg b.i.d.. -lactulose per rectum, repeat ammonia level in a.m.. -continue to monitor H&H, q.12. -PRBC transfusion as needed, target hemoglobin greater than seven. -possible endoscopy tomorrow for evaluation upper GI bleed. -administration IV albumin given paracentesis: Removed fluid around 6.9 L. -IV antibiotics: Paracentesis fluid analysis showed WBC less than 200, less likely spontaneous bacterial peritonitis. -closely monitor fluid and electrolyte status, maintain map greater than 65. Can initiate vasopressor Levophed if needed. -we will continue to monitor and following up. Plan discussed with: PATRICIA Abernathy RESIDENT Dec 13, 2024 16:11
[2024-12-13] MEDS: VASOPRESSIN 20 UNITS in SODIUM CHL 0.9% 99 ML IV SCH (16:38)
[2024-12-13 18:37] LABS: Hematocrit 28.3 % (36.0-46.0); Hemoglobin 9.3 g/dL (12.2-16.2)
[2024-12-13] MEDS ORDERED: MIDO10TA3 PO (19:25)
[2024-12-13] MEDS ORDERED: SPIR50TA5 PO (19:28)
[2024-12-13] MEDS ORDERED: LACT10SO3 PO (19:28)
[2024-12-13] MEDS ORDERED: BUME2TAB5 PO (19:28)
[2024-12-13] MEDS ORDERED: FERR325T20 PO (19:28)
[2024-12-13] MEDS ORDERED: SUCR1TAB31 OR (19:28)
[2024-12-13] MEDS ORDERED: OMEP20TA PO (19:28)
[2024-12-13] MEDS ORDERED: RIFA550T PO (19:28)
[2024-12-13] MEDS ORDERED: cefTRIAXone 1GM/50ML D5W 50 ML IV SCH (20:00)
--- NOTE | 2024-12-13 20:58 | DVHINCON2 ---
Date of service: Dec 13, 2024 Referring Physician MASSIEL Arias Reason for Consultation Acute hypoxic respiratory failure, mechanical ventilation management History of Present Illness 74-year-old woman history of cirrhosis, diabetes mellitus type 2 who was sent to the emergency department due to emesis. She was currently sedated, intubated on mechanical ventilator. She was found to have an elevated ammonia low vol and la rge volume ascites. Pulmonary consultation is called due to acute hypoxic respiratory failure on mechanical ventilator management. Review of systems: Unable to obtain due to patient's critical condition. Past medical history: Cirrhosis, diabetes mellitus type 2 Past surgical history: Status post paracentesis Medications: Reviewed Allergies: No known drug allergies. Family history: No family history of premature CAD. No family history of lung disease. Social history: Unable to obtain due to patient's critical condition. Family History: Alzheimer's disease Cerebrovascular accident (CVA) G8 SISTER G8 SISTER Allergies: Coded Allergies: NO KNOWN ALLERGIES (Unverified , 10/14/24) Home Meds Reported Medications Spironolactone (Spironolactone) 50 Mg Tab, 1 TAB PO BID, #30 TAB 5 Refills 12/13/24 Ferrous Sulfate (Ferosul) 325 Mg Tab, 325 MG PO DAILY, TAB 12/13/24 Bumetanide (Bumetanide) 2 Mg Tab, 2 MG PO BID for 30 Days, MG 12/13/24 Omeprazole (Gnp Omeprazole) 20 Mg Tab, 1 TAB PO DAILY, #90 TAB 1 Refill 12/13/24 Lactulose (Lactulose) 10 Gm/15 Ml Risa, 10 GM PO DAILY, ML 12/13/24 Sucralfate (CARAFATE) 1 Gm Tab, 1 GM OR ACHS, TAB 12/13/24 Rifaximin (Xifaxan) 550 Mg Tab, 1 TAB PO BID, #28 TAB 12/13/24 Midodrine Hcl (Midodrine Hcl) 10 Mg Tab, 10 MG PO BID, TAB 12/13/24 Current Medications Current Medications Medications (Trade) Dose Ordered Sig/Leti Route PRN Reason Start Time Stop Time Status Last Admin Ondansetron HCl (Zofran) 4 mg Q4HP PRN IV NAUSEA / VOMITING 12/13/24 00:15 Nitroglycerin (Ntrostat Sublingual) 0.4 mg Q5MINP PRN SL FOR CHEST PAIN 12/13/24 00:15 Morphine Sulfate 2 mg Q30M PRN IV FOR CHEST PAIN 12/13/24 00:15 Lactulose 300 ml Q6HR OR 12/13/24 06:00 12/13/24 17:27 Pantoprazole Sodium (Protonix) 40 mg DAILY IV 12/13/24 10:00 12/13/24 10:52 DC 12/13/24 10:37 Ceftriaxone Sodium 50 ml @ 100 mls/hr DAILY@2000 IV 12/13/24 20:00 Cancel Sodium Chloride 500 ml @ 100 mls/hr Q5H IV 12/13/24 06:15 12/13/24 10:52 DC 12/13/24 06:33 Propofol 100 ml @ 1.8 mls/hr Q24H IV 12/13/24 07:00 12/13/24 08:39 Norepinephrine Bitartrate 250 ml @ 3.75 mls/hr Q24H IV 12/13/24 08:15 Fentanyl Citrate 250 ml @ 2.5 mls/hr Q24H IV 12/13/24 10:00 Ceftriaxone Sodium 50 ml @ 100 mls/hr DAILY@09 IV 12/13/24 10:00 12/13/24 10:52 DC 12/13/24 10:35 Pantoprazole Sodium (Protonix) 40 mg BID IV 12/13/24 22:00 Octreotide Acetate 500 mcg/ Sodium Chloride 100 ml @ 10 mls/hr Q10H IV 12/13/24 10:45 12/13/24 15:53 DC 12/13/24 13:37 Ceftriaxone Sodium/Dextrose 50 ml @ 50 mls/hr DAILY IV 12/14/24 10:00 Vasopressin 20 units/Sodium Chloride 100 ml @ 9 mls/hr Q11H7M IV 12/13/24 16:00 12/13/24 16:38 Vital Signs Vital Signs Date Time Temp Pulse Resp B/P (MAP) Pulse Ox O2 Delivery O2 Flow Rate FiO2 12/13/24 19:59 63 16 114/70 (85) 100 30 12/13/24 18:00 Mechanical Ventilator+ 12/13/24 17:30 96.5 96.5 12/13/24 08:36 60.0 Physical Exam Gen.: Patient lying in bed in medical ICU. Sedated, intubated on mechanical ventilator. Head: Normocephalic, atraumatic. Eyes: PERRLA. Ears: Normal external anatomy. Throat: Endotracheal tube and orogastric tube in place. Neck: Supple, trachea midline. Chest: Transmitted breath sounds bilaterally. Decreased air entry bilaterally. No wheezing. Bibasilar crackles. Cardio vascular: Positive S1, positive S2. Regular rate and rhythm. Abdomen: Positive bowel sounds in all 4 quadrants. Soft, nontender, nondistended. : Issa in place. Normal external genitalia. Rectal: Deferred Skin: Warm, dry. Intact. Extremities: 2+ radial pulses bilaterally. No lower extremity edema. Neuro: Sedated. Labs/Diagnostic Data Labs Test 12/13/24 18:02 12/13/24 16:43 12/13/24 11:57 12/13/24 10:15 Range/Units Hemoglobin 9.3 #L 12.2-16.2 g/dL Hematocrit 28.3 #L 36.0-46.0 % Stool Occult Blood Positive Negative Stool Occult Blood Sample #3 Negative Ammonia 127 *H 11-32 umol/L Parathyroid Hormone (Intact) 140.8 H 18.4-80.1 pg/mL Body Fluid Source Peritoneal fluid Body Fluid pH 8.0 Body Fluid WBC (Manual) 29 0-200 CUMM Body Fluid RBC (Manual) 127 0-2000 CUMM Body Fluid Mononuclear Cells 95 % Body Fluid Polymorphonuclear Cells 5 0-25 % Test 12/13/24 09:15 12/13/24 06:00 12/13/24 04:10 12/13/24 04:08 Range/Units Blood Gas Specimen Type Arterial Blood Gas Sample Site Left radial Blood Gas Patient Temperature 37.0 Arterial Blood Date Drawn [id number] Arterial Blood pH 7.394 7.350-7.450 Arterial Blood Partial Pressure CO2 27.8 L 32.0-45.0 mmHg Arterial Blood Partial Pressure O2 217.8 H 83.0-108.0 mmHg Arterial Blood HCO3 16.6 L 21.0-28.0 mmol/L Arterial Blood Oxygen Saturation 99.0 H 94.0-98.0 % Arterial Blood Base Excess -7.3 L -2.0-3.0 mmol/L Arterial Blood Oxyhemoglobin 97.8 94.0-98.0 % Arterial Blood Carboxyhemoglobin 0.3 L 0.5-1.5 % Arterial Blood Methemoglobin 0.9 0.0-1.5 % Shivam Test Modified Blood Gas Total Hemoglobin 8.90 L 12.0-16.0 g/dL Blood Gas Set Respiration Rate 16.0 Blood Gas Modality Vent - ac FiO2 % 50.0 Blood Gas Tidal Volume 450.0 Blood Gas PEEP or CPAP 5.0 Urine Color Yellow Yellow Urine Clarity Turbid H Clear Urine pH 5.5 5.0-9.0 Urine Specific [place] 1.016 1.001-1.035 Urine Protein Trace H Negative Urine Ketones Negative Negative Urine Blood Trace H Negative /uL Urine Nitrite Negative Negative Urine Bilirubin Negative Negative Urine Urobilinogen Normal Negative mg/dL Urine Leukocyte Esterase 3+ Negative /uL Urine RBC 2 0 - 4 /hpf Urine WBC Clumps Present None Seen /hpf Urine Microscopic WBC 177 H 0-5 /HPF Urine Squamous Epithelial Cells Few <5 /hpf Urine Bacteria Many H None Seen /hpf Urine Hyaline Casts Few 0 - 2 /lpf Urine Mucus Few None Seen Urine Glucose Normal Normal mg/dL Blood Gas Liter Flow 2.00 White Blood Count 3.3 L 4.4-10.8 10^3/uL Red Blood Count 2.83 L 4.0-5.20 10^6/uL Mean Corpuscular Volume 89.9 80.0-100.0 fL Mean Corpuscular Hemoglobin 29.0 28.0-32.0 pg Mean Corpuscular Hemoglobin Concent 32.3 32.0-36.0 g/dL Red Cell Distribution Width 33.8 H 11.8-14.3 % Platelet Count 60 L 140-450 10^3/uL Mean Platelet Volume 9.3 6.9-10.8 fL Neutrophils (%) (Auto) 65.2 37.0-80.0 % Lymphocytes (%) (Auto) 27.2 10.0-50.0 % Monocytes (%) (Auto) 6.8 0.0-12.0 % Eosinophils (%) (Auto) 0.2 0.0-7.0 % Basophils (%) (Auto) 0.6 0.0-2.0 % Neutrophils # (Auto) 2.1 1.6-8.6 10 ^3/uL Lymphocytes # (Auto) 0.9 0.4-5.4 10 ^3/uL Monocytes # (Auto) 0.2 0-1.3 10 ^3/uL Eosinophils # (Auto) 0 0-0.8 10 ^3/uL Basophils # (Auto) 0 0-0.2 10 ^3/uL Nucleated Red Blood Cells 0.1 % Platelet Estimate Decreased Anisocytosis (manual) Moderate Tear Drop Cells Few Ovalocytes Few Praful Cells Few Sodium Level 142 136-145 mmol/L Potassium Level 3.5 3.5-5.1 mmol/L Chloride Level 109 H 98-107 mmol/L Carbon Dioxide Level 20 20-31 mmol/L Anion Gap 13 5-15 Blood Urea Nitrogen 62 #H 9-23 mg/dL Creatinine 2.58 H 0.550-1.02 mg/dL Glomerular Filtration Rate Calc 19 >90 mL/min BUN/Creatinine Ratio 24.0 H 10.0-20.0 Serum Glucose 75 74-106 mg/dL Calcium Level 8.7 8.7-10.4 mg/dL Phosphorus Level 3.7 2.4-5.1 mg/dL Magnesium Level 2.6 1.6-2.6 mg/dL Vitamin D 25-Hydroxy 41.3 30.0-100 ng/mL Hepatitis B Surface Antigen Negative Negative Hepatitis C Antibody Negative Negative Test 12/12/24 21:50 12/12/24 20:00 Range/Units Lactic Acid Level 2.1 *H 0.4-2.0 mmol/L Prothrombin Time 12.2 H 9.3-11.8 sec Prothrombin Time INR 1.17 H 0.9-1.15 Total Bilirubin 0.7 0.2-1.0 mg/dL Aspartate Amino Transferase (AST) 46 H 13-40 U/L Alanine Aminotransferase (ALT) 36 7-40 U/L Alkaline Phosphatase 104 46-116 U/L Total Protein 4.7 L 5.7-8.2 g/dL Albumin 2.2 L 3.2-4.8 g/dL Microbiology Date/Time Source Procedure Growth Status 12/12/24 20:00 Blood Blood Culture - Preliminary NO GROWTH AFTER 24 HOURS OF INCUBATION. Resulted Assessment Impression: Acute hypoxic respiratory failure On mechanical ventilator Hepatic encephalopathy Hyperammonemia Liver cirrhosis Large volume ascites Thrombocytopenia Anemia, chronic Acute on chronic kidney disease Lactic acidosis Metabolic acidosis Plan: s/p intubation on mechanical ventilator CXR image and report reviewed. Pulmonary vascular congestion. No pneumothorax. Devices in place. ABG reviewed. Compensated. On assist control with a respiratory rate of 16, tidal volume 450, peep of five, FiO2 at 60%. Titrate FIO2 to keep O2 saturation above 92%. VAP bundle Daily ABG and CXR while intubated. Sedate for ventilatory synchrony Start pressors if necessary for hemodynamic support. Titrate to keep MAP above 65 mmHg/SBP above 90 mmHg. Continue antibiotics. F/u cultures. On IV fluids at 100 mL an hours Monitor renal function due to Acute kidney injury. Monitor electrolytes. Supplement as necessary. Monitor ins and outs Nephrology recommendations appreciated. Metabolic acidosis, received one ampule of bicarbonate. Status post paracentesis, give albumin. Nutritional support. Accucheks, ISS. GI/DVT prophylaxis. Condition: Critical Prognosis: Poor given multiple comorbidities. Rest of plan per hospitalist and other consultants. A total of 36 minutes of critical care time was spent reviewing the patient record, examining the patient, making a diagnostic and therapeutic plan, discussing this plan with the medical personnel, following up on diagnostic studies and following the patient for clinical stability excluding any and all procedures. At least 50% of this time was spent in direct, [id number] contact. Thank you MASSIEL Arias for allowing me to participate in this patient's care. Further recommendations will depend on patient's clinical course. Please do not hesitate to contact me if you have any questions or concerns. This medical document was created using an electronic medical record system with [employer] dictation system. Although this document has been carefully reviewed, there may still be some phonetic and typographical errors. These areas are purely typographical due to imperfections of the software programs, and do not reflect any compromise in the patient's medical care. Plan discussed with: Other (RN Harpreet, RT, GLOBAL CMO) SCOTT NELSON MD Dec 13, 2024 20:58
[2024-12-14] VITALS (104 sets, daily range): BP systolic 98–134; BP diastolic 47–83; PULSE 56–105; RESP 13–26; TEMP 86.4–99.5; O2SAT 99–100
[2024-12-14] MEDS: LACTULOSE 20Gm/30ML SOLN NG SCH
[2024-12-14 00:26] LABS: Hematocrit 33.3 % (36.0-46.0)
[2024-12-14 04:54] LABS: Alanine Aminotransferase 26 U/L (7-40); Alkaline Phosphatase 76 U/L (46-116); Anion Gap 17 (5-15); Aspartate Aminotransferase 32 U/L (13-40); BUN/Creatinine Ratio 22.7 (10.0-20.0); Glucose 97 mg/dL (74-106); Sodium 143 mmol/L (136-145)
[2024-12-14 04:55] LABS: Albumin 2.5 g/dL (3.2-4.8); Bilirubin, Total 0.8 mg/dL (0.2-1.0); Blood Urea Nitrogen 59 mg/dL (9-23); Calcium 8.4 mg/dL (8.7-10.4); Carbon Dioxide 16 mmol/L (20-31); Chloride 110 mmol/L (98-107); Potassium 3.2 mmol/L (3.5-5.1)
[2024-12-14 05:04] LABS: Total Protein 4.6 g/dL (5.7-8.2)
[2024-12-14 05:11] LABS: Basophils # (auto) 0.1 10 ^3/uL (0-0.2); Basophils % (auto) 2.4 % (0.0-2.0); Eosinophils # (auto) 0 10 ^3/uL (0-0.8); Eosinophils % (auto) 0.3 % (0.0-7.0); Hematocrit 32.1 % (36.0-46.0); Hemoglobin 10.5 g/dL (12.2-16.2); Lymphocytes # (auto) 0.4 10 ^3/uL (0.4-5.4); Lymphocytes % (auto) 7.1 % (10.0-50.0); Mean Corpuscular Hemoglobin 29.5 pg (28.0-32.0); Mean Corpuscular Hgb Conc. 32.9 g/dL (32.0-36.0); Mean Corpuscular Volume 89.7 fL (80.0-100.0); Monocytes # (auto) 0.3 10 ^3/uL (0-1.3); Monocytes % (auto) 5.3 % (0.0-12.0); Neutrophils # (auto) 4.7 10 ^3/uL (1.6-8.6); Neutrophils % (auto) 84.9 % (37.0-80.0); Nucleated Red Blood Cells % 0.3 %; Platelet Count (auto) 93 10^3/uL (140-450); Red Blood Cells 3.58 10^6/uL (4.0-5.20); White Blood Cell 5.5 10^3/uL (4.4-10.8)
--- NOTE | 2024-12-14 05:17 | DVH ---
EXAM: XR Chest, 1 View CLINICAL INDICATION: INTUBATED TECHNIQUE: Frontal view of the chest. COMPARISON: XY CHEST PORTABLE on DOS: 12/13/24, XY CHEST XRAY 1 VIEW on DOS: 12/13/24, XY CHEST XRAY 1 VIEW on DOS: 12/12/24, XY CHEST PORTABLE on DOS: 10/14/24 FINDINGS: LUNGS AND PLEURAL SPACES: Pulmonary congestion. No consolidation. No pneumothorax. HEART: Unremarkable. No cardiomegaly. MEDIASTINUM: Unremarkable. Normal mediastinal contour. BONES/JOINTS: Unremarkable. No acute fracture. TUBES, LINES AND DEVICES: The endotracheal tube (ETT) is in satisfactory position. OTHER FINDINGS: No significant change from the prior exam. . None. . .. IMPRESSION: No significant change from the prior exam.
[2024-12-14 05:39] LABS: Red Cell Distribution Width 30.6 % (11.8-14.3)
[2024-12-14 06:04] LABS: Anisocytosis Moderate; Tear Drop Cells FEW
[2024-12-14 06:05] LABS: Large Platelets FEW; Platelet Estimate Decrea
[2024-12-14 07:43] LABS: Base Excess -8.5 mmol/L (-2.0-3.0)
[2024-12-14] MEDS: POTASSIUM CHL 20MEQ/100ML 100 ML IV SCH (08:30)
[2024-12-14] MEDS: cefTRIAXone 2GM/50ML D5W 50 ML IV SCH (09:46)
[2024-12-14] MEDS ORDERED: POTASSIUM CHL 20MEQ/100ML 100 ML IV SCH (10:45)
--- NOTE | 2024-12-14 10:48 | DVHPN2 ---
Progress Note Date Seen: Dec 14, 2024 Medical Necessity Reason Pt with a Central, PICC or Fol: No Subjective Review of Systems: RESPIRATORY:Abnormal Other Systems: Patient seen and examined by myself today in follow-up Patient remained intubated on ventilator Objective vital signs Vital Sign Date Time Temp Pulse Resp B/P (MAP) Pulse Ox O2 Delivery O2 Flow Rate FiO2 12/14/24 09:50 105 17 110/64 (79) 100 30 12/14/24 06:00 Mechanical Ventilator+ 12/14/24 04:45 97.9 208.2 12/13/24 08:36 60.0 Total Intake and Output 12/13/24 12/13/24 12/14/24 15:00 23:00 07:00 Intake Total 483.1 ml 1453.05 ml 2314.55 ml Output Total 6900 ml 1325 ml 1300 ml Balance -6416.9 ml 128.05 ml 1014.55 ml medications Current Medications Medications Dose Ordered Sig/Leti Route Start Time Stop Time Status Last Admin Dose Admin Ondansetron HCl 4 mg Q4HP PRN IV 12/13/24 00:15 Nitroglycerin 0.4 mg Q5MINP PRN SL 12/13/24 00:15 Morphine Sulfate 2 mg Q30M PRN IV 12/13/24 00:15 Lactulose 300 ml Q6HR [place] 12/13/24 06:00 12/14/24 06:01 300 ML Ceftriaxone Sodium 50 ml @ 100 mls/hr DAILY@2000 IV 12/13/24 20:00 Cancel Propofol 100 ml @ 1.8 mls/hr Q24H IV 12/13/24 07:00 12/13/24 21:52 1.8 MLS/HR Norepinephrine Bitartrate 250 ml @ 3.75 mls/hr Q24H IV 12/13/24 08:15 Fentanyl Citrate 250 ml @ 2.5 mls/hr Q24H IV 12/13/24 10:00 12/13/24 23:54 2.5 MLS/HR Pantoprazole Sodium 40 mg BID IV 12/13/24 22:00 12/14/24 09:57 40 MG Ceftriaxone Sodium/Dextrose 50 ml @ 50 mls/hr DAILY IV 12/14/24 10:00 12/14/24 09:46 50 MLS/HR Vasopressin 20 units/Sodium Chloride 100 ml @ 9 mls/hr Q11H7M IV 12/13/24 16:00 12/14/24 03:32 9 MLS/HR Potassium Chloride 100 ml @ 50 mls/hr Q2H IV 12/14/24 08:30 12/14/24 12:29 12/14/24 08:30 50 MLS/HR Examination: LUNGS:Normal, CVS:Normal, MSK:Normal laboratory and microbiology Laboratory Tests 12/14/24 03:15 Test 12/14/24 03:15 Range/Units Serum Glucose 97 74-106 mg/dL Microbiology Date/Time Source Procedure Growth Status 12/13/24 10:15 Ascities Fluid Gram Stain - Final Resulted 12/13/24 10:15 Ascities Fluid Body Fluid Culture - Preliminary Resulted 12/13/24 06:50 Sputum Gram Stain - Final Resulted 12/13/24 06:50 Sputum Respiratory Culture - Preliminary Resulted 12/13/24 06:00 Urine - [place] Urine Culture - Preliminary Resulted 12/12/24 20:00 Blood Blood Culture - Preliminary NO GROWTH AFTER 24 HOURS OF INCUBATION. Resulted Problem List/Assessment/Plan Problem List/Assessment/Plan Acute kidney injury superimposed Chronic Kidney Disease secondary hemodynamic mediated Hepatorenal syndrome Acute respiratory failure, intubated on ventilator Hepatic encephalopathy Urinary tract infection GI bleeding Liver cirrhosis Ascites Hypoalbuminemia Pancytopenia Recommendations Kidney function stable Increased urine output Issa catheter Strict I&Os Check urine electrolytes kidney ultrasound reported no hydronephrosis Packed red blood cell transfusion p.r.n. IV antibiotics Albumin 25% IVPB KCL replacement Low-dose dopamine Paracentesis Octreotide GI consult We will continue to follow Plan discussed with: Other (Nurse) My Orders My Orders Orders - ZAINAB QUIJANO MD Procedure Category Date Status Time Kidney US 12/13/24 Resulted 11:32 Urine LAB 12/13/24 In Process Protein/Creatinine Urine Sodium LAB 12/13/24 In Process UNK Sodium Chl 0.9% PHA 12/13/24 In Process (So... W/Vasopressin 16:00 Albumin Ivpb PHA 12/14/24 Transmitted 10:45 Dopamine Drip PHA 12/14/24 Transmitted 10:45 Potassium Chl Slim PHA 12/14/24 Transmitted KCL 10:45 ZAINAB QUIJANO MD Dec 14, 2024 10:48
[2024-12-14 11:27] LABS: INR 1.19 (0.9-1.15); Partial Thromboplastin Time 44.1 SEC (24.5-34.5); Prothrombin Time 12.4 sec (9.3-11.8)
[2024-12-14 11:29] LABS: Base Excess -8.7 mmol/L (-2.0-3.0)
[2024-12-14] MEDS: ALBUMIN 25% 100 ML IV SCH (12:25)
[2024-12-14] MEDS: DOPamine 1600MCG/ML D5W 250 ML IV SCH (12:31)
--- NOTE | 2024-12-14 13:10 | DVHPN2 ---
Progress Note - Dictate Date Seen: Dec 14, 2024 Medical Necessity Reason Pt with a Central, PICC or Fol: No Subjective Remains intubated on ventilator support critically ill in ICU. Patient's daughter is at bedside along with the nurse at bedside. Discussed with the contact person in ICU regarding the renal failure and further wound care plan. Patient is scheduled to undergo EGD this afternoon. vital signs Vital Sign Date Time Temp Pulse Resp B/P (MAP) Pulse Ox O2 Delivery O2 Flow Rate FiO2 12/14/24 12:31 105/57 12/14/24 12:30 82 22 100 30 12/14/24 06:00 Mechanical Ventilator+ 12/14/24 04:45 97.9 208.2 12/13/24 08:36 60.0 Total Intake and Output 12/13/24 12/13/24 12/14/24 15:00 23:00 07:00 Intake Total 483.1 ml 1453.05 ml 2314.55 ml Output Total 6900 ml 1325 ml 1300 ml Balance -6416.9 ml 128.05 ml 1014.55 ml medications Current Medications Medications Dose Ordered Sig/Leti Route Start Time Stop Time Status Last Admin Dose Admin Ondansetron HCl 4 mg Q4HP PRN IV 12/13/24 00:15 Nitroglycerin 0.4 mg Q5MINP PRN SL 12/13/24 00:15 Morphine Sulfate 2 mg Q30M PRN IV 12/13/24 00:15 Lactulose 300 ml Q6HR PA 12/13/24 06:00 12/14/24 12:24 300 ML Ceftriaxone Sodium 50 ml @ 100 mls/hr DAILY@2000 IV 12/13/24 20:00 Cancel Propofol 100 ml @ 1.8 mls/hr Q24H IV 12/13/24 07:00 12/13/24 21:52 1.8 MLS/HR Norepinephrine Bitartrate 250 ml @ 3.75 mls/hr Q24H IV 12/13/24 08:15 Fentanyl Citrate 250 ml @ 2.5 mls/hr Q24H IV 12/13/24 10:00 12/13/24 23:54 2.5 MLS/HR Pantoprazole Sodium 40 mg BID IV 12/13/24 22:00 12/14/24 09:57 40 MG Ceftriaxone Sodium/Dextrose 50 ml @ 50 mls/hr DAILY IV 12/14/24 10:00 12/14/24 09:46 50 MLS/HR Vasopressin 20 units/Sodium Chloride 100 ml @ 9 mls/hr Q11H7M IV 12/13/24 16:00 12/14/24 03:32 9 MLS/HR Albumin Human 100 ml @ 100 mls/hr Q8H IV 12/14/24 10:45 12/15/24 03:44 12/14/24 12:25 100 MLS/HR Dopamine HCl/ Dextrose 250 ml @ 4.613 mls/ hr Q24H IV 12/14/24 10:45 12/14/24 12:31 4.613 MLS/HR Potassium Chloride 100 ml @ 50 mls/hr Q2H IV 12/14/24 10:45 Hold objective Sedated comfortable on ventilator without acute cardiopulmonary distress. HEENT pupils equal round react to light. Heart regular and rhythm as well as S2. Lungs fair wound without any audible wheezing. Abdomen is slightly distended tympanic to palpation soft. Extremities trace edema around ankles. laboratory and microbiology Laboratory Tests 12/14/24 03:15 Test 12/14/24 03:15 Range/Units Serum Glucose 97 74-106 mg/dL Assessment/Plan Continue present management as she is on. Patient is started on renal dose dopamine for diuresis via Nephrology. Continue vasopressin. Proceed with EGD. Continue proton pump inhibitor in the pressors as she is on. Continue current sedation. Continue lactulose via rectal tube for I ammonia. Replace electrolytes as needed. Continue rest of supportive care and treatment and further management per clinical course. I updated the patient's daughter and with the nurse at bedside regarding care plan. Problems(with codes): (1) Hematemesis (2) Hepatic encephalopathy (3) Acute renal failure (4) Anemia (5) Hyperammonemia (6) Thrombocytopenia (7) Liver cirrhosis (8) Ascites (9) Pancytopenia Dietary Evaluation Review Comments: 1. Considering high propofol requirements, recommend EN initiation with trickle-tube feeds of Vital HP @ 15 ml/hr 2. Provide minimal free water flushes for tube patency of 30 ml Q6 hrs (120 ml total) or per MD discretion 3. Monitor BMP/lytes and replete to WNL/PRN Expected Outcomes/Goals: Improved nutritional status Plan discussed with: Daughter, Other GANAPAVARAPU,ABHISHEK MD Dec 14, 2024 13:10
[2024-12-14 13:17] LABS: Protein, Urine 27.9 mg/dL (1-14)
[2024-12-14 13:18] LABS: Creatinine, Urine 134.12 mg/dL (30.0-125.0); Urine Protein/Creatinine Ratio 0.21
[2024-12-14 13:26] LABS: Sodium Urine < 10 mmol/L (40-220)
[2024-12-14] MEDS ORDERED: LACTULOSE 20Gm/30ML SOLN PO SCH (14:00)
[2024-12-14 14:06] LABS: Protein, Body Fluid 0.7 g/dL (.)
[2024-12-14] MEDS ORDERED: EPINEPHrine HCL 1 MG/1 ML AMP ONE (15:04)
[2024-12-14] MEDS ORDERED: LACTULOSE 10g/15ml SOLN 473ML PR SCH (18:00)
--- NOTE | 2024-12-14 18:24 | DVHOP2 ---
Operative Report DATE OF OPERATION: 12/14/24 PROCEDURE: Upper Endoscopy with biopsy and hot snare polypectomy. PREOPERATIVE INDICATION: The patient is a 74 -year-old female undergoing endoscopy for upper GI bleed POSTOPERATIVE DIAGNOSES: 1. Patient had trace distal esophageal varices without stigmata of bleeding from the varices 2. Patient had a moderate amount of old blood in the stomach after this was aspirated patient was noted to have underlying [id number] gastropathy and gastritis with multiple areas of oozing from the stomach lining 3. There was a 1.5-2 cm pre-pyloric inflammatory antral polyp that was oozing, it was initially biopsied and then removed completely via hot snare polypectomy 4. There were three benign-appearing gastric polyps in the body of the that were seen and removed via hot snare polypectomy 5. Otherwise normal examination up to the 2nd and 3rd part of the duodenum PROCEDURE PERFORMED BY: Lina Foley GI NURSE: Miroslava SCOPE: Olympus videoendoscope. ASA CLASS: 3 PREOPERATIVE MEDICATIONS: Patient was previously intubated and sedated on the ventilator PROCEDURE IN DETAIL: After obtaining an informed consent, the patient was placed on left lateral decubitus position. The patient was then sedated with the above medications. A bite block was placed between her teeth. The endoscope was then passed through the oropharynx, into the esophagus, and through the stomach and pylorus up to the second and third part of the duodenum. The endoscope was then withdrawn. The 2nd and 3rd part of the duodenum and the duodenal bulb were normal and there was greenish bile in this area The patient had moderate amount of old coffee-ground and blood in the stomach. This was all aspirated Patient had underlying severe gastropathy and gastritis with multiple areas of oozing from the stomach lining There was a 1.5 cm pre-pyloric inflammatory antral gastric polyp which was also oozing. This was initially biopsied and then completely removed by hot snare polypectomy There were three other benign-appearing polyp seen in the body of the stomach that were also removed via hot snare polypectomy. Duodenal and gastric biopsies were also obtained. On retroflexion there were no gastric varices and no Marcelina-Lee tear The endoscope was then withdrawn into the distal esophagus where the patient had a 1-2 cm sliding-type hiatal hernia. The patient had trace prominence of the distal esophageal veins and trace esophageal varices but without stigmata of recent bleeding The remaining mid to proximal esophagus was otherwise unremarkable The patient tolerated the procedure well without difficulty. COMPLICATIONS : None SPECIMENS: Antral gastric polyp Benign gastric polyps in the body of the stomach Duodenal biopsy Gastric body biopsies DISPOSITION: Continue to monitor in ICU Patient currently sedated intubated PLAN: 1. Await for biopsy result 2. Change Protonix to a Protonix drip at 8 milligrams/hour 3. Transfuse 2 units of FFP 4. Check H&H every 12 hours and if the hemoglobin is below eight transfuse 1 unit PRBC 5. Okay to insert NG tube and start lactulose 30 mL via NG tube q.6 hours 6. Keep NPO for now but once her bleeding resolves patient can be started on enteral tube feedings 7. If the patient continues to bleed then I will consider a relook endoscopy in the next 48-72 hours 8. Discussed with patient's family in the lobby and ICU nurse LINA FOLEY MD Dec 14, 2024 18:24
--- NOTE | 2024-12-14 18:56 | DVH ---
EXAM: XR Chest, 1 View CLINICAL INDICATION: NG inocencio placment ET tube placment TECHNIQUE: Frontal view of the chest. COMPARISON: XY CHEST PORTABLE on DOS: 12/14/24, XY CHEST PORTABLE on DOS: 12/13/24, XY CHEST XRAY 1 V IEW on DOS: 12/13/24, XY CHEST XRAY 1 VIEW on DOS: 12/12/24, XY CHEST PORTABLE on DOS: 10/14/24 FINDINGS: LUNGS AND PLEURAL SPACES: See below. HEART: Cardiomegaly with mild congestion. MEDIASTINUM: Unremarkable. Normal mediastinal contour. BONES/JOINTS: Unremarkable. No acute fracture. TUBES, LINES AND DEVICES: Enteric tube tip in the stomach. OTHER FINDINGS: . None. IMPRESSION: Cardiomegaly with mild congestion.
--- NOTE | 2024-12-14 18:57 | DVHPN2 ---
Progress Note - Dictate Date Seen: Dec 14, 2024 Medical Necessity Reason Pt with a Central, PICC or Fol: Yes The following are medically ne: Waterman Catheter Reason for waterman catheter: Strict I&O Subjective Patient seen and examined at bedside. Sedated, intubated on mechanical ventilator. Overnight events reviewed. vital signs Vital Sign Date Time Temp Pulse Resp B/P (MAP) Pulse Ox O2 Delivery O2 Flow Rate FiO2 12/14/24 18:15 97.5 73 15 127/54 (78) 207.5 12/14/24 18:00 100 Mechanical Ventilator+ 30 30 12/13/24 08:36 60.0 Total Intake and Output 12/13/24 12/13/24 12/14/24 15:00 23:00 07:00 Intake Total 483.1 ml 1453.05 ml 2370.75 ml Output Total 6900 ml 1325 ml 1300 ml Balance -6416.9 ml 128.05 ml 1070.75 ml medications Current Medications Medications Dose Ordered Sig/Leti Route Start Time Stop Time Status Last Admin Dose Admin Ondansetron HCl 4 mg Q4HP PRN IV 12/13/24 00:15 Nitroglycerin 0.4 mg Q5MINP PRN SL 12/13/24 00:15 Morphine Sulfate 2 mg Q30M PRN IV 12/13/24 00:15 Ceftriaxone Sodium 50 ml @ 100 mls/hr DAILY@2000 IV 12/13/24 20:00 Cancel Propofol 100 ml @ 1.8 mls/hr Q24H IV 12/13/24 07:00 12/14/24 17:09 7.2 MLS/HR Norepinephrine Bitartrate 250 ml @ 3.75 mls/hr Q24H IV 12/13/24 08:15 12/14/24 15:41 15 MLS/HR Fentanyl Citrate 250 ml @ 2.5 mls/hr Q24H IV 12/13/24 10:00 12/13/24 23:54 2.5 MLS/HR Ceftriaxone Sodium/Dextrose 50 ml @ 50 mls/hr DAILY IV 12/14/24 10:00 12/14/24 09:46 50 MLS/HR Vasopressin 20 units/Sodium Chloride 100 ml @ 9 mls/hr Q11H7M IV 12/13/24 16:00 12/14/24 14:33 9 MLS/HR Albumin Human 100 ml @ 100 mls/hr Q8H IV 12/14/24 10:45 12/15/24 03:44 12/14/24 12:25 100 MLS/HR Dopamine HCl/ Dextrose 250 ml @ 4.613 mls/ hr Q24H IV 12/14/24 10:45 12/14/24 12:31 4.613 MLS/HR Pantoprazole Sodium 50 ml @ 10 mls/hr Q5H IV 12/14/24 18:15 12/15/24 20:00 Lactulose 30 ml Q6HR NG 12/14/24 20:00 UNV objective Gen.: Patient lying in bed in medical ICU. Sedated, intubated on mechanical ventilator. Head: Normocephalic, atraumatic. Eyes: PERRLA. Ears: Normal external anatomy. Throat: Endotracheal tube and orogastric tube in place. Neck: Supple, trachea midline. Chest: Transmitted breath sounds bilaterally. Decreased air entry bilaterally. No wheezing. Bibasilar crackles. Cardiovascular: Positive S1, positive S2. Regular rate and rhythm. Abdomen: Positive bowel sounds in all 4 quadrants. Soft, nontender, nondistended. : Waterman in place. Normal external genitalia. Rectal: Deferred. Skin: Warm, dry. Intact. Extremities: 2+ radial pulses bilaterally. No lower extremity edema. Neuro: Sedated. laboratory and microbiology Laboratory Tests 12/14/24 03:15 Test 12/14/24 03:15 Range/Units Serum Glucose 97 74-106 mg/dL Assessment/Plan Impression: Acute hypoxic respiratory failure On mechanical ventilator Hepatic encephalopathy Hyperammonemia Liver cirrhosis Large volume ascites Thrombocytopenia Anemia, chronic Acute on chronic kidney disease Lactic acidosis Metabolic acidosis Events: Remains on vent support On assist control with a respiratory rate of 16, tidal volume 450, PEEP of 5, FiO2 at 60-->30%. Sedated on Propofol, Fentanyl ABG reviewed, notable for alkalemia Chest x-ray reviewed, demonstrates pulmonary edema, right greater than left. No pleural effusion or pneumothorax. Monitor renal function. Monitor electrolytes. Supplement as necessary. Potassium supplementation Elevated ammonia Continue lactulose. Albumin given Pressors for hemodynamic support. On Levophed 16 mcg/min, vasopressin 0.03 units/min Titrate to keep MAP above 65 mmHg/SBP above 90 mmHg. Octreotide drip Protonix BID Continue abx Follow up cultures Blood cultures show no growth in 24 hours. Ascitic cultures show no growth. Urine culture positive for GNR, follow up ID and sensitivities. Monitor hemoglobin Follow up GI recommendations Pt will undergo EGD by GI today. Obtain consent for arterial line placement SBT/JOHNNIE - plan CPAP for AM. Labs and imaging reviewed. Rest of plan as noted below. Plan: s/p intubation on mechanical ventilator On assist control with a respiratory rate of 16, tidal volume 450, PEEP of 5, FiO2 at 30%. Titrate FIO2 to keep O2 saturation above 92%. VAP bundle Daily ABG and CXR while intubated. Sedate for ventilatory synchrony Pressors for hemodynamic support. Titrate to keep MAP above 65 mmHg/SBP above 90 mmHg. Continue antibiotics. F/u cultures. On IV fluids at 100 mL an hour Monitor renal function due to Acute kidney injury. Monitor electrolytes. Supplement as necessary. Monitor ins and outs Nephrology recommendations appreciated. Metabolic acidosis - received one ampule of bicarbonate on 12/13. Status post paracentesis, albumin given. Nutritional support. Accucheks, ISS. GI/DVT prophylaxis. Condition: Critical Prognosis: Poor given multiple comorbidities. Rest of plan per hospitalist and other consultants. A total of 35 minutes of critical care time was spent reviewing the patient record, examining the patient, making a diagnostic and therapeutic plan, discussing this plan with the medical personnel, following up on diagnostic studies and following the patient for clinical stability excluding any and all procedures. At least 50% of this time was spent in direct, [id number] contact. Thank you MASSIEL Arias for allowing me to participate in this patient's care. Further recommendations will depend on patient's clinical course. Please do not hesitate to contact me if you have any questions or concerns. This medical document was created using an electronic medical record system with [employer] dictation system. Although this document has been carefully reviewed, there may still be some phonetic and typographical errors. These areas are purely typographical due to imperfections of the software programs, and do not reflect any compromise in the patient's medical care. Dietary Evaluation Review Comments: 1. Considering high propofol requirements, recommend EN initiation with trickle-tube feeds of Vital HP @ 15 ml/hr 2. Provide minimal free water flushes for tube patency of 30 ml Q6 hrs (120 ml total) or per MD discretion 3. Monitor BMP/lytes and replete to WNL/PRN Expected Outcomes/Goals: Improved nutritional status Plan discussed with: Other (GLADYS Mullins) Critical Care Time(min): 35 SCOTT NELSON MD Dec 14, 2024 18:57
[2024-12-14 19:23] LABS: Hematocrit 31.9 % (36.0-46.0); Hemoglobin 10.5 g/dL (12.2-16.2)
[2024-12-14] MEDS: PANTOPRAZOLE 40mg/50ML NS AE 50 ML IV SCH (20:37)
[2024-12-15] VITALS (117 sets, daily range): BP systolic 82–141; BP diastolic 49–96; PULSE 58–107; RESP 14–20; TEMP 96.6–98.8; O2SAT 10–100
[2024-12-15 03:33] LABS: Basophils # (auto) 0 10 ^3/uL (0-0.2); Basophils % (auto) 0.7 % (0.0-2.0); Eosinophils # (auto) 0 10 ^3/uL (0-0.8); Hematocrit 23.4 % (36.0-46.0); Hemoglobin 7.8 g/dL (12.2-16.2); Lymphocytes # (auto) 0.8 10 ^3/uL (0.4-5.4); Mean Corpuscular Hemoglobin 30.4 pg (28.0-32.0); Mean Corpuscular Hgb Conc. 33.5 g/dL (32.0-36.0); Mean Corpuscular Volume 90.6 fL (80.0-100.0); Monocytes # (auto) 0.5 10 ^3/uL (0-1.3); Monocytes % (auto) 8.3 % (0.0-12.0); Neutrophils # (auto) 4.4 10 ^3/uL (1.6-8.6); Nucleated Red Blood Cells % 0.1 %; Platelet Count (auto) 51 10^3/uL (140-450); Red Blood Cells 2.58 10^6/uL (4.0-5.20); White Blood Cell 5.7 10^3/uL (4.4-10.8)
[2024-12-15 03:40] LABS: Alanine Aminotransferase 19 U/L (7-40); Albumin 3.6 g/dL (3.2-4.8); Alkaline Phosphatase 56 U/L (46-116); Anion Gap 16 (5-15); Aspartate Aminotransferase 17 U/L (13-40); BUN/Creatinine Ratio 20.8 (10.0-20.0); Potassium 3.8 mmol/L (3.5-5.1); Sodium 144 mmol/L (136-145)
[2024-12-15 03:41] LABS: Bilirubin, Total 0.6 mg/dL (0.2-1.0)
[2024-12-15 04:01] LABS: Blood Urea Nitrogen 61 mg/dL (9-23); Carbon Dioxide 17 mmol/L (20-31); Chloride 111 mmol/L (98-107); Glucose 140 mg/dL (74-106); Total Protein 5.3 g/dL (5.7-8.2)
[2024-12-15 04:07] LABS: Red Cell Distribution Width 30.7 % (11.8-14.3)
[2024-12-15 05:02] LABS: Anisocytosis Moderate; Large Platelets FEW; Platelet Estimate Decrea; Tear Drop Cells FEW
--- NOTE | 2024-12-15 05:24 | DVH ---
EXAM: XR Chest, 1 View CLINICAL INDICATION: intubated TECHNIQUE: Frontal view of the chest. COMPARISON: XY CHEST XRAY 1 VIEW on DOS: 12/14/24, XY CHEST PORTABLE on DOS: 12/14/24, XY CHEST ALLAN BLE on DOS: 12/13/24, XY CHEST XRAY 1 VIEW on DOS: 12/13/24, XY CHEST XRAY 1 VIEW on DOS: 12/12/24 FINDINGS: LUNGS AND PLEURAL SPACES: Congestion and edema. No pneumothorax. HEART: Unremarkable. No cardiomegaly. MEDIASTINUM: Unremarkable. Normal mediastinal contour. BONES/JOINTS: Unremarkable. No acute fracture. TUBES, LINES AND DEVICES: The endotracheal tube (ETT) is in satisfactory position. Enteric tube ti p in the stomach. OTHER FINDINGS: . . . . .. IMPRESSION: Congestion and edema.
[2024-12-15 08:06] LABS: Base Excess -7.4 mmol/L (-2.0-3.0)
--- NOTE | 2024-12-15 09:15 | DVHPN2 ---
Progress Note Date Seen: Dec 15, 2024 Medical Necessity Reason Pt with a Central, PICC or Fol: Yes The following are medically ne: Waterman Catheter Reason for waterman catheter: Strict I&O Subjective Review of Systems: RESPIRATORY:Abnormal Other Systems: Patient seen and examined by myself today in follow-up Patient remained intubated on ventilator Objective vital signs Vital Sign Date Time Temp Pulse Resp B/P (MAP) Pulse Ox O2 Delivery O2 Flow Rate FiO2 12/15/24 08:29 86 18 114/96 (102) 100 30 12/15/24 07:44 Mechanical Ventilator+ 12/15/24 06:45 98.6 209.5 12/13/24 08:36 60.0 Total Intake and Output 12/14/24 12/14/24 12/15/24 15:00 23:00 07:00 Intake Total 435.739 ml 1422.904 ml 1956.904 ml Output Total 100 ml 1300 ml 255 ml Balance 335.739 ml 122.904 ml 1701.904 ml medications Current Medications Medications Dose Ordered Sig/Leti Route Start Time Stop Time Status Last Admin Dose Admin Ondansetron HCl 4 mg Q4HP PRN IV 12/13/24 00:15 Nitroglycerin 0.4 mg Q5MINP PRN SL 12/13/24 00:15 Morphine Sulfate 2 mg Q30M PRN IV 12/13/24 00:15 Ceftriaxone Sodium 50 ml @ 100 mls/hr DAILY@2000 IV 12/13/24 20:00 Cancel Propofol 100 ml @ 1.8 mls/hr Q24H IV 12/13/24 07:00 12/15/24 03:00 3.6 MLS/HR Norepinephrine Bitartrate 250 ml @ 3.75 mls/hr Q24H IV 12/13/24 08:15 12/15/24 05:54 7.5 MLS/HR Fentanyl Citrate 250 ml @ 2.5 mls/hr Q24H IV 12/13/24 10:00 12/15/24 06:45 2.5 MLS/HR Ceftriaxone Sodium/Dextrose 50 ml @ 50 mls/hr DAILY IV 12/14/24 10:00 12/14/24 09:46 50 MLS/HR Vasopressin 20 units/Sodium Chloride 100 ml @ 9 mls/hr Q11H7M IV 12/13/24 16:00 12/15/24 01:50 9 MLS/HR Dopamine HCl/ Dextrose 250 ml @ 4.613 mls/ hr Q24H IV 12/14/24 10:45 12/14/24 12:31 4.613 MLS/HR Pantoprazole Sodium 50 ml @ 10 mls/hr Q5H IV 12/14/24 18:15 12/15/24 20:00 12/15/24 04:18 10 MLS/HR Lactulose 30 ml Q6HR NG 12/14/24 20:00 12/15/24 06:14 30 ML Examination: LUNGS:Normal, CVS:Normal, MSK:Normal laboratory and microbiology Laboratory Tests 12/15/24 02:53 Test 12/15/24 02:53 Range/Units Serum Glucose 140 H 74-106 mg/dL Microbiology Date/Time Source Procedure Growth Status 12/13/24 12:54 Nose MRSA Screen - Preliminary Resulted 12/13/24 10:15 Ascities Fluid Gram Stain - Final Resulted 12/13/24 10:15 Ascities Fluid Body Fluid Culture - Preliminary Resulted 12/13/24 06:50 Sputum Gram Stain - Final Resulted 12/13/24 06:50 Sputum Respiratory Culture - Preliminary Resulted 12/13/24 06:00 Urine - Waterman [place] Urine Culture - Preliminary Resulted 12/12/24 20:00 Blood Blood Culture - Preliminary NO GROWTH AFTER 48 HOURS OF INCUBATION. Resulted Problem List/Assessment/Plan Problem List/Assessment/Plan Acute kidney injury superimposed Chronic Kidney Disease secondary hemodynamic mediated, FeNa < 1% Hepatorenal syndrome Acute respiratory failure, intubated on ventilator Hepatic encephalopathy Urinary tract infection GI bleeding Liver cirrhosis Ascites Hypoalbuminemia Pancytopenia Recommendations Kidney function slightly worsened today Increased urine output Waterman catheter Strict I&Os kidney ultrasound reported no hydronephrosis Packed red blood cell transfusion p.r.n. IV antibiotics Albumin 25% IVPB KCL replacement Low-dose dopamine Paracentesis Octreotide GI consult We will continue to follow Plan discussed with: Other (Nurse) My Orders My Orders Orders - ZAINAB QUIJANO MD Procedure Category Date Status Time Dopamine 1600mcg/Ml PHA 12/14/24 In Process D5W 10:45 Dietary Evaluation Review Comments: 1. Considering high propofol requirements, recommend EN initiation with trickle-tube feeds of Vital HP @ 15 ml/hr 2. Provide minimal free water flushes for tube patency of 30 ml Q6 hrs (120 ml total) or per MD discretion 3. Monitor BMP/lytes and replete to WNL/PRN Expected Outcomes/Goals: Improved nutritional status ZAINAB QUIJANO MD Dec 15, 2024 09:15
--- NOTE | 2024-12-15 11:09 | DVHPNRES ---
Progress Note Date Seen: Dec 15, 2024 Resident Creating Document: PATRICIA BRITTON RESIDENT Medical Necessity Reason Pt with a Central, PICC or Fol: Yes The following are medically ne: Waterman Catheter Reason for waterman catheter: Strict I&O Subjective Review of Systems Reason for Consultation GI bleed History of Present Illness Patient is 74-year-old female with known medical history of liver cirrhosis who brought to the hospital for altered mental level of consciousness. Over the night of hospitalization patient's mental status continued to be worsened, early in the morning on 12/13/2024 patient started having hematemesis and patient was intubated in ER for airway protection and started on mechanical ventilation. GI consultation has been done for GI bleed and management of liver cirrhosis. Past Medical History Liver cirrhosis, esophageal varices, end-stage liver disease with the ascites , hepatic encephalopathy Past Surgical History History of paracentesis Patient seen and examined at bedside. Continued to be on mechanical ventilation, intubated. Off vasopressors. On Protonix drip. NG tube with negative suction showed blood. No any other new events. Objective vital signs Vital Sign Date Time Temp Pulse Resp B/P (MAP) Pulse Ox O2 Delivery O2 Flow Rate FiO2 12/15/24 11:00 122/75 12/15/24 10:29 78 16 100 30 12/15/24 10:15 98.0 98.0 12/15/24 10:00 Mechanical Ventilator+ 12/13/24 08:36 60.0 Total Intake and Output 12/14/24 12/14/24 12/15/24 15:00 23:00 07:00 Intake Total 435.739 ml 1422.904 ml 1956.904 ml Output Total 100 ml 1300 ml 255 ml Balance 335.739 ml 122.904 ml 1701.904 ml medications Current Medications Medications Dose Ordered Sig/Leti Route Start Time Stop Time Status Last Admin Dose Admin Ondansetron HCl 4 mg Q4HP PRN IV 12/13/24 00:15 Nitroglycerin 0.4 mg Q5MINP PRN SL 12/13/24 00:15 Morphine Sulfate 2 mg Q30M PRN IV 12/13/24 00:15 Ceftriaxone Sodium 50 ml @ 100 mls/hr DAILY@2000 IV 12/13/24 20:00 Cancel Propofol 100 ml @ 1.8 mls/hr Q24H IV 12/13/24 07:00 12/15/24 03:00 3.6 MLS/HR Norepinephrine Bitartrate 250 ml @ 3.75 mls/hr Q24H IV 12/13/24 08:15 12/15/24 05:54 7.5 MLS/HR Fentanyl Citrate 250 ml @ 2.5 mls/hr Q24H IV 12/13/24 10:00 12/15/24 06:45 2.5 MLS/HR Ceftriaxone Sodium/Dextrose 50 ml @ 50 mls/hr DAILY IV 12/14/24 10:00 12/15/24 09:45 50 MLS/HR Vasopressin 20 units/Sodium Chloride 100 ml @ 9 mls/hr Q11H7M IV 12/13/24 16:00 12/15/24 01:50 9 MLS/HR Dopamine HCl/ Dextrose 250 ml @ 4.613 mls/ hr Q24H IV 12/14/24 10:45 12/14/24 12:31 4.613 MLS/HR Pantoprazole Sodium 50 ml @ 10 mls/hr Q5H IV 12/14/24 18:15 12/15/24 20:00 12/15/24 09:42 10 MLS/HR Lactulose 30 ml Q6HR NG 12/14/24 20:00 12/15/24 06:14 30 ML Examination General Appearance: Intubated, sedated on mechanical ventilation. Head Exam: Normal inspection Neck Exam: Normal inspection. Non-tender. Normal alignment Pulmonary/Respiratory: Chest non-tender. Clear bilateral breath sounds Cardiovascular/Chest: Regular rate and rhythm. No murmurs. No JVD. Peripheral Pulses: 2+ Radial (R). 2+ Radial (L). 2+ Pedal (R). 2+ Pedal (L) Abdominal Exam: Abdomen is soft, nontender. Positive bowel sounds. Ankle Exam: Negative ankle edema Lower extremities: 2+ lower extremity edema, chronic venous stasis. Neuro/Mental Status: A&O x4. Coherent Thoughts/Psych: Normal thought pattern. Appropriate mood and affect. Good judgement and insight Appearance: In no acute distress Skin Exam: Normal inspection. Normal color. Warm. Dry laboratory and microbiology Laboratory Tests 12/15/24 02:53 Test 12/15/24 02:53 Range/Units Serum Glucose 140 H 74-106 mg/dL Microbiology Date/Time Source Procedure Growth Status 12/13/24 12:54 Nose MRSA Screen - Preliminary Resulted 12/13/24 10:15 Ascities Fluid Gram Stain - Final Resulted 12/13/24 10:15 Ascities Fluid Body Fluid Culture - Preliminary Resulted 12/13/24 06:50 Sputum Gram Stain - Final Resulted 12/13/24 06:50 Sputum Respiratory Culture - Preliminary Resulted 12/13/24 06:00 Urine - Waterman [place] Urine Culture - Final Escherichia coli Complete 12/12/24 20:00 Blood Blood Culture - Preliminary NO GROWTH AFTER 48 HOURS OF INCUBATION. Resulted Problem List/Assessment/Plan Problem List/Assessment/Plan Liver cirrhosis Trace distal esophageal varices without bleeding Active upper GI bleed due to Severe gastropathy with gastritis Antral polyps of stomach Hepatic encephalopathy Esophageal variceal Moderate ascites Hypoalbuminemia Hyperammonemia Upper GI bleed Thrombocytopenia GER hemodynamically mediated UTI Plan/recommendation. Dr Foley EGD on 12/14/2024:1. Patient had trace distal esophageal varices without stigmata of bleeding from the varices 2. Patient had a moderate amount of old blood in the stomach after this was aspirated patient was noted to have underlying [id number] gastropathy and gastritis with multiple areas of oozing from the stomach lining 3. There was a 1.5-2 cm pre-pyloric inflammatory antral polyp that was oozing, it was initially biopsied and then removed completely via hot snare polypectomy 4. There were three benign-appearing gastric polyps in the body of the that were seen and removed via hot snare polypectomy 5. Otherwise normal examination up to the 2nd and 3rd part of the duodenum -continue Protonix drip 8 microgram/hour, continue to monitor H and H q.12, GI we will be standby if repeat EGD as needed in next 24-48 hours. -lactulose 30 mg q.6 via NG tube, ammonia is trending down, continue to monitor. -1 unit of PRBC given hemoglobin less than eight, with active GI bleed. 2 PRBC has been given yesterday. -administration IV albumin given after paracentesis: Removed fluid around 6.9 L. -IV antibiotics: Paracentesis fluid analysis showed WBC less than 200, less likely spontaneous bacterial peritonitis. -closely monitor fluid and electrolyte status, maintain map greater than 65. Can initiate vasopressor Levophed if needed. -we will continue to monitor and following up. Plan discussed with: Patient, Other (RN) My Orders My Orders Orders - PATRICIA BRITTON Procedure Category Date Status Time Hemoglobin & LAB 12/15/24 Logged Hematocrit 22:00 Hemoglobin & LAB 12/16/24 Verified Hematocrit 10:00 Hemoglobin & LAB 12/16/24 Verified Hematocrit 22:00 Dietary Evaluation Review Comments: 1. Considering high propofol requirements, recommend EN initiation with trickle-tube feeds of Vital HP @ 15 ml/hr 2. Provide minimal free water flushes for tube patency of 30 ml Q6 hrs (120 ml total) or per MD discretion 3. Monitor BMP/lytes and replete to WNL/PRN Expected Outcomes/Goals: Improved nutritional status PATRICIA BRITTON RESIDENT Dec 15, 2024 11:09
--- NOTE | 2024-12-15 13:17 | DVHPN2 ---
Progress Note - Dictate Date Seen: Dec 15, 2024 Medical Necessity Reason Pt with a Central, PICC or Fol: Yes The following are medically ne: Waterman Catheter Reason for waterman catheter: Strict I&O Subjective Remains intubated on ventilator support critically ill in ICU. Patient's daughter is at bedside along with the nurse at bedside. Underwent EGD apparently showed some old blood clots in the gastric region and oozing. With a CT detailed EGD report. Currently she is receiving blood transfusion. vital signs Vital Sign Date Time Temp Pulse Resp B/P (MAP) Pulse Ox O2 Delivery O2 Flow Rate FiO2 12/15/24 13:00 94/54 12/15/24 12:30 97.7 66 16 99 97.7 12/15/24 12:04 30 12/15/24 11:45 Mechanical Ventilator+ 12/13/24 08:36 60.0 Total Intake and Output 12/14/24 12/14/24 12/15/24 15:00 23:00 07:00 Intake Total 435.739 ml 1422.904 ml 1956.904 ml Output Total 100 ml 1300 ml 255 ml Balance 335.739 ml 122.904 ml 1701.904 ml medications Current Medications Medications Dose Ordered Sig/Leti Route Start Time Stop Time Status Last Admin Dose Admin Ondansetron HCl 4 mg Q4HP PRN IV 12/13/24 00:15 Nitroglycerin 0.4 mg Q5MINP PRN SL 12/13/24 00:15 Morphine Sulfate 2 mg Q30M PRN IV 12/13/24 00:15 Ceftriaxone Sodium 50 ml @ 100 mls/hr DAILY@1999 IV 12/13/24 20:00 Cancel Propofol 100 ml @ 1.8 mls/hr Q24H IV 12/13/24 07:00 12/15/24 03:00 3.6 MLS/HR Norepinephrine Bitartrate 250 ml @ 3.75 mls/hr Q24H IV 12/13/24 08:15 12/15/24 05:54 7.5 MLS/HR Fentanyl Citrate 250 ml @ 2.5 mls/hr Q24H IV 12/13/24 10:00 12/15/24 06:45 2.5 MLS/HR Ceftriaxone Sodium/Dextrose 50 ml @ 50 mls/hr DAILY IV 12/14/24 10:00 12/15/24 09:45 50 MLS/HR Vasopressin 20 units/Sodium Chloride 100 ml @ 9 mls/hr Q11H7M IV 12/13/24 16:00 12/15/24 01:50 9 MLS/HR Dopamine HCl/ Dextrose 250 ml @ 4.613 mls/ hr Q24H IV 12/14/24 10:45 12/14/24 12:31 4.613 MLS/HR Pantoprazole Sodium 50 ml @ 10 mls/hr Q5H IV 12/14/24 18:15 12/15/24 20:00 12/15/24 12:54 10 MLS/HR Lactulose 30 ml Q6HR NG 12/14/24 20:00 12/15/24 12:07 30 ML Diagnostic Test (Pha) 1 strip BID 12/15/24 22:00 objective Sedated comfortable on ventilator without acute cardiopulmonary distress. HEENT pupils equal round react to light. Heart regular and rhythm as well as S2. Lungs fair wound without any audible wheezing. Abdomen is slightly distended tympanic to palpation soft. Extremities trace edema around ankles. laboratory and microbiology Laboratory Tests 12/15/24 02:53 Test 12/15/24 02:53 Range/Units Serum Glucose 140 H 74-106 mg/dL Assessment/Plan Continue present management as she is on. Continue blood transfusion as needed for hemoglobin below 7.5. Continue current medications and drips as she is on. Ammonia levels have significantly improved. Further clinical management per clinical course and recommendations of consultants. Once hemoglobin is stable then consider CPAP trials and eventual extubation. Updated the daughter at bedside regarding care plan as well as nurse at bedside Problems(with codes): (1) Ascites (2) Hyperammonemia (3) Acute renal failure (4) Hepatic encephalopathy (5) Liver cirrhosis (6) Thrombocytopenia (7) Hematemesis Dietary Evaluation Review Comments: 1. Considering high propofol requirements, recommend EN initiation with trickle-tube feeds of Vital HP @ 15 ml/hr 2. Provide minimal free water flushes for tube patency of 30 ml Q6 hrs (120 ml total) or per MD discretion 3. Monitor BMP/lytes and replete to WNL/PRN Expected Outcomes/Goals: Improved nutritional status Plan discussed with: Daughter ABHISHEK FINE MD Dec 15, 2024 13:17
--- NOTE | 2024-12-15 16:43 | MEDREC ---
[facility] ASP Intervention Section I [facility] ASP Intervention: Dose optimization(PK/PD) (PLEASE CONSIDER CHANGING DOSE OF CEFTRIAXONE TO 1 G DAILY IF UTI IS THE ONLY CONCERN FOR PATIENT) REGIS ALICEA Dec 15, 2024 16:43
--- NOTE | 2024-12-15 21:47 | DVHPN2 ---
Progress Note - Dictate Date Seen: Dec 15, 2024 Medical Necessity Reason Pt with a Central, PICC or Fol: Yes The following are medically ne: Waterman Catheter Reason for waterman catheter: Strict I&O Subjective Patient seen and examined at bedside. Sedated, intubated on mechanical ventilator. Overnight events reviewed. vital signs Vital Sign Date Time Temp Pulse Resp B/P (MAP) Pulse Ox O2 Delivery O2 Flow Rate FiO2 12/15/24 20:20 63 16 120/66 (84) 99 30 12/15/24 19:00 97.7 207.9 12/15/24 18:00 Mechanical Ventilator+ 12/13/24 08:36 60.0 Total Intake and Output 12/14/24 12/14/24 12/15/24 15:00 23:00 07:00 Intake Total 435.739 ml 1422.904 ml 1956.904 ml Output Total 100 ml 1300 ml 255 ml Balance 335.739 ml 122.904 ml 1701.904 ml medications Current Medications Medications Dose Ordered Sig/Leti Route Start Time Stop Time Status Last Admin Dose Admin Ondansetron HCl 4 mg Q4HP PRN IV 12/13/24 00:15 Nitroglycerin 0.4 mg Q5MINP PRN SL 12/13/24 00:15 Morphine Sulfate 2 mg Q30M PRN IV 12/13/24 00:15 Ceftriaxone Sodium 50 ml @ 100 mls/hr DAILY@2000 IV 12/13/24 20:00 Cancel Propofol 100 ml @ 1.8 mls/hr Q24H IV 12/13/24 07:00 12/15/24 16:27 3.6 MLS/HR Norepinephrine Bitartrate 250 ml @ 3.75 mls/hr Q24H IV 12/13/24 08:15 12/15/24 05:54 7.5 MLS/HR Fentanyl Citrate 250 ml @ 2.5 mls/hr Q24H IV 12/13/24 10:00 12/15/24 06:45 2.5 MLS/HR Ceftriaxone Sodium/Dextrose 50 ml @ 50 mls/hr DAILY IV 12/14/24 10:00 12/15/24 09:45 50 MLS/HR Vasopressin 20 units/Sodium Chloride 100 ml @ 9 mls/hr Q11H7M IV 12/13/24 16:00 12/15/24 14:06 9 MLS/HR Dopamine HCl/ Dextrose 250 ml @ 4.613 mls/ hr Q24H IV 12/14/24 10:45 12/14/24 12:31 4.613 MLS/HR Lactulose 30 ml Q6HR NG 12/14/24 20:00 12/15/24 19:04 30 ML Diagnostic Test (Pha) 1 strip BID 12/15/24 22:00 objective Gen.: Patient lying in bed in medical ICU. Sedated, intubated on mechanical ventilator. Head: Normocephalic, atraumatic. Eyes: PERRLA. Ears: Normal external anatomy. Throat: Endotracheal tube and orogastric tube in place. Neck: Supple, trachea midline. Chest: Transmitted breath sounds bilaterally. Decreased air entry bilaterally. No wheezing. Bibasilar crackles. Cardiovascular: Positive S1, positive S2. Regular rate and rhythm. Abdomen: Positive bowel sounds in all 4 quadrants. Soft, nontender, nondistended. : Waterman in place. Normal external genitalia. Rectal: Deferred. Skin: Warm, dry. Intact. Extremities: 2+ radial pulses bilaterally. No lower extremity edema. Neuro: Sedated. laboratory and microbiology Laboratory Tests 12/15/24 02:53 Test 12/15/24 02:53 Range/Units Serum Glucose 140 H 74-106 mg/dL Assessment/Plan Impression: Acute hypoxic respiratory failure On mechanical ventilator Hepatic encephalopathy Hyperammonemia Liver cirrhosis Large volume ascites Thrombocytopenia Anemia, chronic Acute on chronic kidney disease Lactic acidosis Metabolic acidosis Events: Remains on vent support On assist control with a respiratory rate of 16, tidal volume 450 -->400, PEEP of 5, FiO2 at 30%. Sedated on Propofol, Fentanyl ABG reviewed, compensated Metabolic acidosis with respiratory compensation Chest x-ray reviewed, demonstrates pulmonary congestion and edema. No pleural effusion or pneumothorax. Hemoglobin 7.8 g/dL Plan 1 unit PRBC and 2 units FFP transfusion Held SBT/JOHNNIE due to drop in hemoglobin Dopamine 2 mcg/min renally dosed. Elevated ammonia Continue lactulose. Albumin Pressors for hemodynamic support. On Levophed 4 mcg/min, vasopressin 0.01 units/min Titrate to keep MAP above 65 mmHg/SBP above 90 mmHg. Improving pressor requirements Protonix BID Continue abx Follow up cultures Blood cultures show no growth in 48 hours. Ascitic cultures show no growth. Urine culture positive for GNR, follow up ID and sensitivities. Status post EGD by GI GI recommendations appreciated Monitor hemoglobin Updated daughter at bedside. Labs and imaging reviewed. Rest of plan as noted below. Plan: s/p intubation on mechanical ventilator On assist control with a respiratory rate of 16, tidal volume 400, PEEP of 5, FiO2 at 30%. Titrate FIO2 to keep O2 saturation above 92%. VAP bundle Daily ABG and CXR while intubated. Sedate for ventilatory synchrony Pressors for hemodynamic support. Titrate to keep MAP above 65 mmHg/SBP above 90 mmHg. Continue antibiotics. F/u cultures. On IV fluids at 100 mL an hour Monitor renal function due to Acute kidney injury. Monitor electrolytes. Supplement as necessary. Monitor ins and outs Nephrology recommendations appreciated. Metabolic acidosis - received one ampule of bicarbonate on 12/13. Status post paracentesis, albumin given. Nutritional support. Accucheks, ISS. GI/DVT prophylaxis. Condition: Critical Prognosis: Poor given multiple comorbidities. Rest of plan per hospitalist and other consultants. A total of 35 minutes of critical care time was spent reviewing the patient record, examining the patient, making a diagnostic and therapeutic plan, discussing this plan with the medical personnel, following up on diagnostic studies and following the patient for clinical stability excluding any and all procedures. At least 50% of this time was spent in direct, [id number] contact. Thank you MASSIEL Arias for allowing me to participate in this patient's care. Further recommendations will depend on patient's clinical course. Please do not hesitate to contact me if you have any questions or concerns. This medical document was created using an electronic medical record system with [employer] dictation system. Although this document has been carefully reviewed, there may still be some phonetic and typographical errors. These areas are purely typographical due to imperfections of the software programs, and do not reflect any compromise in the patient's medical care. Dietary Evaluation Review Comments: 1. Considering high propofol requirements, recommend EN initiation with trickle-tube feeds of Vital HP @ 15 ml/hr 2. Provide minimal free water flushes for tube patency of 30 ml Q6 hrs (120 ml total) or per MD discretion 3. Monitor BMP/lytes and replete to WNL/PRN Expected Outcomes/Goals: Improved nutritional status Plan discussed with: Other (GLADYS Wang) Critical Care Time(min): 35 SCOTT NELSON MD Dec 15, 2024 21:47
[2024-12-15] MEDS: ACCU-CHEK COMFORT CURVE STRIP VI SCH (22:18)
[2024-12-15 22:29] LABS: Hemoglobin 8.8 g/dL (12.2-16.2)
[2024-12-15 22:31] LABS: Hematocrit 26.5 % (36.0-46.0)
[2024-12-16] VITALS (106 sets, daily range): BP systolic 95–140; BP diastolic 53–88; PULSE 50–112; RESP 8–24; TEMP 97.2–99.3; O2SAT 93–100
[2024-12-16 04:29] LABS: Basophils # (auto) 0 10 ^3/uL (0-0.2); Basophils % (auto) 0.6 % (0.0-2.0); Eosinophils # (auto) 0 10 ^3/uL (0-0.8); Eosinophils % (auto) 0.2 % (0.0-7.0); Lymphocytes # (auto) 0.5 10 ^3/uL (0.4-5.4)
[2024-12-16 04:31] LABS: Lymphocytes % (auto) 14.1 % (10.0-50.0); Mean Corpuscular Hemoglobin 29.4 pg (28.0-32.0); Mean Corpuscular Hgb Conc. 33.1 g/dL (32.0-36.0); Mean Corpuscular Volume 88.8 fL (80.0-100.0); Monocytes # (auto) 0.3 10 ^3/uL (0-1.3); Monocytes % (auto) 9.3 % (0.0-12.0); Neutrophils # (auto) 2.7 10 ^3/uL (1.6-8.6); Neutrophils % (auto) 75.8 % (37.0-80.0); Nucleated Red Blood Cells % 0.4 %; Platelet Count (auto) 33 10^3/uL (140-450); Red Blood Cells 3.04 10^6/uL (4.0-5.20); Red Cell Distribution Width 26.9 % (11.8-14.3); White Blood Cell 3.6 10^3/uL (4.4-10.8)
[2024-12-16 04:38] LABS: Alanine Aminotransferase 17 U/L (7-40); Alkaline Phosphatase 48 U/L (46-116); Anion Gap 12 (5-15); Aspartate Aminotransferase 14 U/L (13-40); BUN/Creatinine Ratio 19.9 (10.0-20.0); Carbon Dioxide 21 mmol/L (20-31); Glucose 101 mg/dL (74-106)
[2024-12-16 04:39] LABS: Bilirubin, Total 0.6 mg/dL (0.2-1.0)
[2024-12-16 04:41] LABS: Blood Urea Nitrogen 59 mg/dL (9-23); Chloride 115 mmol/L (98-107); Sodium 148 mmol/L (136-145); Total Protein 4.6 g/dL (5.7-8.2)
--- NOTE | 2024-12-16 06:05 | DVH ---
EXAM: XR Chest, 1 View CLINICAL INDICATION: intubated. TECHNIQUE: Frontal view of the chest. COMPARISON: XY CHEST PORTABLE on DOS: 12/15/24, XY CHEST XRAY 1 VIEW on DOS: 12/14/24, XY CHEST ALLAN BLE on DOS: 12/14/24, XY CHEST PORTABLE on DOS: 12/13/24, XY CHEST XRAY 1 VIEW on DOS: 12/13/24 FINDINGS: LUNGS AND PLEURAL SPACES: Mild congestive heart failure. No consolidation. No pneumothorax. HEART: Unremarkable. No cardiomegaly. MEDIASTINUM: Unremarkable. Normal mediastinal contour. BONES/JOINTS: Unremarkable. No acute fracture. TUBES, LINES AND DEVICES: The endotracheal tube (ETT) is in satisfactory position. Enteric tube ti p in the stomach. OTHER FINDINGS: . None. . .. IMPRESSION: Mild congestive heart failure.
[2024-12-16 06:23] LABS: Anisocytosis Slight; Large Platelets FEW; Platelet Estimate Decreased; Tear Drop Cells FEW
[2024-12-16 06:27] LABS: Base Excess -5.5 mmol/L (-2.0-3.0)
[2024-12-16] MEDS: POTASSIUM CHL 20MEQ/100ML 100 ML IV SCH (09:19)
[2024-12-16 11:35] LABS: Hemoglobin 9.4 g/dL (12.2-16.2)
[2024-12-16 11:39] LABS: Hematocrit 28.3 % (36.0-46.0)
--- NOTE | 2024-12-16 14:38 | ECG ---
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
--- NOTE | 2024-12-16 14:38 | ECG ---
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
--- NOTE | 2024-12-16 15:39 | DVHPN2 ---
Progress Note - Dictate Date Seen: Dec 16, 2024 Medical Necessity Reason Pt with a Central, PICC or Fol: Yes The following are medically ne: Waterman Catheter Reason for waterman catheter: Strict I&O Subjective Somnolent, family member at bedside vital signs Vital Sign Date Time Temp Pulse Resp B/P (MAP) Pulse Ox O2 Delivery O2 Flow Rate FiO2 12/16/24 14:45 98.6 71 12 113/64 (80) 99 209.5 12/16/24 14:00 Mechanical Ventilator+ 30 30 Total Intake and Output 12/15/24 12/15/24 12/16/24 15:00 23:00 07:00 Intake Total 368.667 ml 561.204 ml 264.3 ml Output Total 925 ml 625 ml Balance 368.667 ml -363.796 ml -360.7 ml medications Current Medications Medications Dose Ordered Sig/Leti Route Start Time Stop Time Status Last Admin Dose Admin Ondansetron HCl 4 mg Q4HP PRN IV 12/13/24 00:15 Nitroglycerin 0.4 mg Q5MINP PRN SL 12/13/24 00:15 Morphine Sulfate 2 mg Q30M PRN IV 12/13/24 00:15 Ceftriaxone Sodium 50 ml @ 100 mls/hr DAILY@2000 IV 12/13/24 20:00 Cancel Propofol 100 ml @ 1.8 mls/hr Q24H IV 12/13/24 07:00 12/15/24 16:27 3.6 MLS/HR Norepinephrine Bitartrate 250 ml @ 3.75 mls/hr Q24H IV 12/13/24 08:15 12/15/24 05:54 7.5 MLS/HR Fentanyl Citrate 250 ml @ 2.5 mls/hr Q24H IV 12/13/24 10:00 12/15/24 06:45 2.5 MLS/HR Ceftriaxone Sodium/Dextrose 50 ml @ 50 mls/hr DAILY IV 12/14/24 10:00 12/16/24 09:14 50 MLS/HR Vasopressin 20 units/Sodium Chloride 100 ml @ 9 mls/hr Q11H7M IV 12/13/24 16:00 12/16/24 07:44 9 MLS/HR Dopamine HCl/ Dextrose 250 ml @ 4.613 mls/ hr Q24H IV 12/14/24 10:45 12/16/24 13:44 4.613 MLS/HR Lactulose 30 ml Q6HR NG 12/14/24 20:00 12/16/24 13:43 30 ML Diagnostic Test (Pha) 1 strip BID 12/15/24 22:00 12/16/24 10:14 1 STRIP Potassium Bicarbonate 50 meq BID NG 12/16/24 22:00 Pantoprazole Sodium 40 mg BID IV 12/16/24 22:00 objective Gen: nad, thin heent: nc/at, mmm lungs: cta anteriorly cvs: no rub laboratory and microbiology Laboratory Tests 12/16/24 10:30 12/16/24 03:00 Test 12/16/24 03:00 Range/Units Serum Glucose 101 74-106 mg/dL Assessment/Plan Problem List/Assessment/Plan Acute kidney injury superimposed Chronic Kidney Disease secondary hemodynamic mediated, FeNa < 1% Hepatorenal syndrome Acute respiratory failure, intubated on ventilator Hepatic encephalopathy Urinary tract infection GI bleeding Liver cirrhosis Ascites Hypoalbuminemia Pancytopenia Recommendations - essentially stable GFR - electrolyte repletion as needed - we will continue to follow closely. Dietary Evaluation Review Comments: 1. Considering high propofol requirements, recommend EN initiation with trickle-tube feeds of Vital HP @ 15 ml/hr 2. Provide minimal free water flushes for tube patency of 30 ml Q6 hrs (120 ml total) or per MD discretion 3. Monitor BMP/lytes and replete to WNL/PRN Expected Outcomes/Goals: Improved nutritional status Plan discussed with: Other CINTHYA EVANS MD Dec 16, 2024 15:39
--- NOTE | 2024-12-16 15:46 | DVHPN2 ---
Progress Note - Dictate Date Seen: Dec 16, 2024 Medical Necessity Reason Pt with a Central, PICC or Fol: Yes The following are medically ne: Waterman Catheter Reason for waterman catheter: Strict I&O Subjective Remains intubated on ventilator support critically ill in ICU. Patient's daughter is at bedside along with the nurse at bedside. Off of pressors. Ammonia level has improved. Patient undergoing CPAP trials. Off of sedation. vital signs Vital Sign Date Time Temp Pulse Resp B/P (MAP) Pulse Ox O2 Delivery O2 Flow Rate FiO2 12/16/24 14:45 98.6 71 12 113/64 (80) 99 209.5 12/16/24 14:00 Mechanical Ventilator+ 30 30 Total Intake and Output 12/15/24 12/15/24 12/16/24 15:00 23:00 07:00 Intake Total 368.667 ml 561.204 ml 264.3 ml Output Total 925 ml 625 ml Balance 368.667 ml -363.796 ml -360.7 ml medications Current Medications Medications Dose Ordered Sig/Leti Route Start Time Stop Time Status Last Admin Dose Admin Ondansetron HCl 4 mg Q4HP PRN IV 12/13/24 00:15 Nitroglycerin 0.4 mg Q5MINP PRN SL 12/13/24 00:15 Morphine Sulfate 2 mg Q30M PRN IV 12/13/24 00:15 Ceftriaxone Sodium 50 ml @ 100 mls/hr DAILY@2000 IV 12/13/24 20:00 Cancel Propofol 100 ml @ 1.8 mls/hr Q24H IV 12/13/24 07:00 12/15/24 16:27 3.6 MLS/HR Norepinephrine Bitartrate 250 ml @ 3.75 mls/hr Q24H IV 12/13/24 08:15 12/15/24 05:54 7.5 MLS/HR Fentanyl Citrate 250 ml @ 2.5 mls/hr Q24H IV 12/13/24 10:00 12/15/24 06:45 2.5 MLS/HR Ceftriaxone Sodium/Dextrose 50 ml @ 50 mls/hr DAILY IV 12/14/24 10:00 12/16/24 09:14 50 MLS/HR Vasopressin 20 units/Sodium Chloride 100 ml @ 9 mls/hr Q11H7M IV 12/13/24 16:00 12/16/24 07:44 9 MLS/HR Dopamine HCl/ Dextrose 250 ml @ 4.613 mls/ hr Q24H IV 12/14/24 10:45 12/16/24 13:44 4.613 MLS/HR Lactulose 30 ml Q6HR NG 12/14/24 20:00 12/16/24 13:43 30 ML Diagnostic Test (Pha) 1 strip BID 12/15/24 22:00 12/16/24 10:14 1 STRIP Potassium Bicarbonate 50 meq BID NG 12/16/24 22:00 Pantoprazole Sodium 40 mg BID IV 12/16/24 22:00 objective Sedated comfortable on ventilator without acute cardiopulmonary distress. HEENT pupils equal round react to light. Heart regular and rhythm as well as S2. Lungs fair wound without any audible wheezing. Abdomen is slightly distended tympanic to palpation soft. Extremities trace edema around ankles. laboratory and microbiology Laboratory Tests 12/16/24 10:30 12/16/24 03:00 Test 12/16/24 03:00 Range/Units Serum Glucose 101 74-106 mg/dL Assessment/Plan Continue present management as she is on. Proceed with a CPAP trials and possible extubation for pulmonology. Meantime we will cut down lactulose to Q 8 hours given the ammonia level is improved. Replace potassium aggressively and follow the labs. Otherwise continue rest of supportive care and treatment. Further clinical management per clinical course. Discussed with the patient's daughter as well as nurse at bedside and cheese specialist in the ICU regarding care plan Problems(with codes): (1) Acute renal failure (2) Hyperammonemia (3) Ascites (4) Liver cirrhosis (5) Pancytopenia (6) Hypotension (7) Hepatic encephalopathy Dietary Evaluation Review Comments: 1. Considering high propofol requirements, recommend EN initiation with trickle-tube feeds of Vital HP @ 15 ml/hr 2. Provide minimal free water flushes for tube patency of 30 ml Q6 hrs (120 ml total) or per MD discretion 3. Monitor BMP/lytes and replete to WNL/PRN Expected Outcomes/Goals: Improved nutritional status Plan discussed with: Daughter DENISALaylaABHISHEK HARE Dec 16, 2024 15:46
--- NOTE | 2024-12-16 16:47 | DVHPN2 ---
Progress Note Date Seen: Dec 16, 2024 Resident Creating Document: PATRICIA BRITTON RESIDENT Medical Necessity Reason Pt with a Central, PICC or Fol: Yes The following are medically ne: Waterman Catheter Reason for awterman catheter: Strict I&O Subjective Review of Systems Reason for Consultation GI bleed History of Present Illness Patient is 74-year-old female with known medical history of liver cirrhosis who brought to the hospital for altered mental level of consciousness. Over the night of hospitalization patient's mental status continued to be worsened, early in the morning on 12/13/2024 patient started having hematemesis and patient was intubated in ER for airway protection and started on mechanical ventilation. GI consultation has been done for GI bleed and management of liver cirrhosis. Past Medical History Liver cirrhosis, esophageal varices, end-stage liver disease with the ascites , hepatic encephalopathy Past Surgical History History of paracentesis Patient seen and examined at bedside. Continued to be on mechanical ventilation, intubated. Off vasopressors. No bleeding from NG suction. Hemoglobin stable. On Protonix IV b.i.d.. Undergoing CPAP trial today. Objective vital signs Vital Sign Date Time Temp Pulse Resp B/P (MAP) Pulse Ox O2 Delivery O2 Flow Rate FiO2 12/16/24 14:45 98.6 71 12 113/64 (80) 99 209.5 12/16/24 14:00 Mechanical Ventilator+ 30 30 Total Intake and Output 12/15/24 12/15/24 12/16/24 15:00 23:00 07:00 Intake Total 368.667 ml 561.204 ml 264.3 ml Output Total 925 ml 625 ml Balance 368.667 ml -363.796 ml -360.7 ml medications Current Medications Medications Dose Ordered Sig/Leti Route Start Time Stop Time Status Last Admin Dose Admin Ondansetron HCl 4 mg Q4HP PRN IV 12/13/24 00:15 Nitroglycerin 0.4 mg Q5MINP PRN SL 12/13/24 00:15 Morphine Sulfate 2 mg Q30M PRN IV 12/13/24 00:15 Ceftriaxone Sodium 50 ml @ 100 mls/hr DAILY@2000 IV 12/13/24 20:00 Cancel Propofol 100 ml @ 1.8 mls/hr Q24H IV 12/13/24 07:00 12/15/24 16:27 3.6 MLS/HR Norepinephrine Bitartrate 250 ml @ 3.75 mls/hr Q24H IV 12/13/24 08:15 12/15/24 05:54 7.5 MLS/HR Fentanyl Citrate 250 ml @ 2.5 mls/hr Q24H IV 12/13/24 10:00 12/15/24 06:45 2.5 MLS/HR Ceftriaxone Sodium/Dextrose 50 ml @ 50 mls/hr DAILY IV 12/14/24 10:00 12/16/24 09:14 50 MLS/HR Vasopressin 20 units/Sodium Chloride 100 ml @ 9 mls/hr Q11H7M IV 12/13/24 16:00 12/16/24 07:44 9 MLS/HR Dopamine HCl/ Dextrose 250 ml @ 4.613 mls/ hr Q24H IV 12/14/24 10:45 12/16/24 13:44 4.613 MLS/HR Lactulose 30 ml Q6HR NG 12/14/24 20:00 12/16/24 13:43 30 ML Diagnostic Test (Pha) 1 strip BID 12/15/24 22:00 12/16/24 10:14 1 STRIP Potassium Bicarbonate 50 meq BID NG 12/16/24 22:00 Pantoprazole Sodium 40 mg BID IV 12/16/24 22:00 Examination General Appearance: Intubated, sedated on mechanical ventilation. Head Exam: Normal inspection Neck Exam: Normal inspection. Non-tender. Normal alignment Pulmonary/Respiratory: Chest non-tender. Clear bilateral breath sounds Cardiovascular/Chest: Regular rate and rhythm. No murmurs. No JVD. Peripheral Pulses: 2+ Radial (R). 2+ Radial (L). 2+ Pedal (R). 2+ Pedal (L) Abdominal Exam: Abdomen is soft, nontender. Positive bowel sounds. Ankle Exam: Negative ankle edema Lower extremities: 2+ lower extremity edema, chronic venous stasis. Neuro/Mental Status: A&O x4. Coherent Thoughts/Psych: Normal thought pattern. Appropriate mood and affect. Good judgement and insight Appearance: In no acute distress Skin Exam: Normal inspection. Normal color. Warm. Dry laboratory and microbiology Laboratory Tests 12/16/24 10:30 12/16/24 03:00 Test 12/16/24 03:00 Range/Units Serum Glucose 101 74-106 mg/dL Microbiology Date/Time Source Procedure Growth Status 12/13/24 12:54 Nose MRSA Screen - Final Complete 12/13/24 10:15 Ascities Fluid Gram Stain - Final Resulted 12/13/24 10:15 Ascities Fluid Body Fluid Culture - Preliminary Resulted 12/13/24 06:50 Sputum Gram Stain - Final Resulted 12/13/24 06:50 Respiratory Culture - Preliminary Escherichia coli Resulted 12/13/24 06:00 Urine - Waterman [place] Urine Culture - Final Escherichia coli Complete 12/12/24 20:00 Blood Blood Culture - Preliminary NO GROWTH AFTER 72 HOURS OF INCUBATION. Resulted Problem List/Assessment/Plan Problem List/Assessment/Plan Liver cirrhosis Trace distal esophageal varices without bleeding Active upper GI bleed due to Severe gastropathy with gastritis Antral polyps of stomach Hepatic encephalopathy Esophageal variceal Moderate ascites Hypoalbuminemia Hyperammonemia Upper GI bleed Thrombocytopenia GER hemodynamically mediated UTI Plan/recommendation. Dr Foley EGD on 12/14/2024:1. Patient had trace distal esophageal varices without stigmata of bleeding from the varices 2. Patient had a moderate amount of old blood in the stomach after this was aspirated patient was noted to have underlying [id number] gastropathy and gastritis with multiple areas of oozing from the stomach lining 3. There was a 1.5-2 cm pre-pyloric inflammatory antral polyp that was oozing, it was initially biopsied and then removed completely via hot snare polypectomy 4. There were three benign-appearing gastric polyps in the body of the that were seen and removed via hot snare polypectomy 5. Otherwise normal examination up to the 2nd and 3rd part of the duodenum -continue Protonix 40 mg IV b.i.d., continue monitor H&H. -lactulose 30 mg q.6 via NG tube, ammonia is trending down, continue to monitor. -1 unit of PRBC given hemoglobin less than eight, with active GI bleed. 2 PRBC has been given yesterday. -administration IV albumin given after paracentesis: Removed fluid around 6.9 L. -IV antibiotics: Paracentesis fluid analysis showed WBC less than 200, less likely spontaneous bacterial peritonitis. -closely monitor fluid and electrolyte status, maintain map greater than 65. Can initiate vasopressor Levophed if needed. -we will continue to monitor and following up. Plan discussed with: Daughter, Other (RN) Dietary Evaluation Review Comments: 1. Considering high propofol requirements, recommend EN initiation with trickle-tube feeds of Vital HP @ 15 ml/hr 2. Provide minimal free water flushes for tube patency of 30 ml Q6 hrs (120 ml total) or per MD discretion 3. Monitor BMP/lytes and replete to WNL/PRN Expected Outcomes/Goals: Improved nutritional status PATRICIA BRITTON RESIDENT Dec 16, 2024 16:47
[2024-12-16 18:28] LABS: Magnesium 2.3 mg/dL (1.6-2.6)
--- NOTE | 2024-12-16 18:36 | DVHNC2 ---
Procedure - Bronchoscopy procedure note: Indications: Increased ET tube secretions, Possible mucous plugging. Medicines: See ELECTRIC TAPE SLITTER notes. Complications: None Procedure: Patient medications and allergies reviewed. The risks and benefits of the procedure and the sedation options and risk were discussed with the patient's healthcare proxy. All questions were answered and informed consent was obtained. Patient identification and proposed procedure were verified prior to the procedure by the physician, and a nurse, and the respiratory therapist in ICU room. The heart rate, respiratory rate, oxygen saturations, blood pressure, adequacy of pulmonary ventilation, and response to care were monitored throughout the procedure. The physical status of the patient was reassessed after the procedure. After obtaining informed consent, the bronchoscope was introduced through the endotracheal tube and advanced into the trachea bronchial tree of both lungs. The procedure was accomplished without difficulty. The patient tolerated the procedure well. Findings: The trachea is in normal caliber. The braden is sharp. The tracheobronchial tree of the right lung was examined to at least the first subsegmental level. The bronchial mucosa was erythemastous at RML/RLL bronchi. The anatomy in the right lung are normal. There are no endobronchial lesions. There was copious brownish secretions from right main stem bronchus onward throughout R4-R10. Right middle lobe (RML) Bronchoalveolar lavage (BAL) obtained. RML BAL sent for gram stain and culture. The left upper lobe, lingula, and left lower lobe were examined to at least the first subsegmental level. Bronchial mucosa and anatomy in the left upper lobe and lingula are normal. There were no endobronchial lesions. There was copious whitish secretions from left main stem bronchus onward throughout L6-L10. Mucous plugging removed from L6-L10. There was no active bleeding at the completion of the procedure. Estimated blood loss: Less than 5 mL. Impression: Right and Left lower lobe atelectasis due to mucous plugging Mucous plugging from L6-L10 and R6-R10 RML BAL performed Recommendation: Follow-up RML BAL results. Procedure codes: 65293, bronchoscopy, rigid and flexible, including fluoroscopic guidance, one performed; with bronchial endobronchial broncho-alveolar lavage, single or multiple sites SCOTT NELSON MD Dec 16, 2024 18:36
[2024-12-16 18:39] LABS: Potassium 3.5 mmol/L (3.5-5.1)
--- NOTE | 2024-12-16 21:11 | DVHPN2 ---
Progress Note - Dictate Date Seen: Dec 16, 2024 Medical Necessity Reason Pt with a Central, PICC or Fol: Yes The following are medically ne: Waterman Catheter Reason for waterman catheter: Strict I&O Subjective Patient seen and examined at bedside. Intubated on mechanical ventilator. Overnight events reviewed. vital signs Vital Sign Date Time Temp Pulse Resp B/P (MAP) Pulse Ox O2 Delivery O2 Flow Rate FiO2 12/16/24 20:13 72 17 133/71 (91) 100 50 12/16/24 20:00 Mechanical Ventilator+ 12/16/24 19:15 98.8 209.8 Total Intake and Output 12/15/24 12/15/24 12/16/24 15:00 23:00 07:00 Intake Total 368.667 ml 561.204 ml 264.3 ml Output Total 925 ml 625 ml Balance 368.667 ml -363.796 ml -360.7 ml medications Current Medications Medications Dose Ordered Sig/Leti Route Start Time Stop Time Status Last Admin Dose Admin Ondansetron HCl 4 mg Q4HP PRN IV 12/13/24 00:15 Nitroglycerin 0.4 mg Q5MINP PRN SL 12/13/24 00:15 Morphine Sulfate 2 mg Q30M PRN IV 12/13/24 00:15 Ceftriaxone Sodium 50 ml @ 100 mls/hr DAILY@2000 IV 12/13/24 20:00 Cancel Propofol 100 ml @ 1.8 mls/hr Q24H IV 12/13/24 07:00 12/15/24 16:27 3.6 MLS/HR Norepinephrine Bitartrate 250 ml @ 3.75 mls/hr Q24H IV 12/13/24 08:15 12/15/24 05:54 7.5 MLS/HR Fentanyl Citrate 250 ml @ 2.5 mls/hr Q24H IV 12/13/24 10:00 12/15/24 06:45 2.5 MLS/HR Ceftriaxone Sodium/Dextrose 50 ml @ 50 mls/hr DAILY IV 12/14/24 10:00 12/16/24 09:14 50 MLS/HR Vasopressin 20 units/Sodium Chloride 100 ml @ 9 mls/hr Q11H7M IV 12/13/24 16:00 12/16/24 18:32 9 MLS/HR Dopamine HCl/ Dextrose 250 ml @ 4.613 mls/ hr Q24H IV 12/14/24 10:45 12/16/24 13:44 4.613 MLS/HR Diagnostic Test (Pha) 1 strip BID 12/15/24 22:00 12/16/24 10:14 1 STRIP Potassium Bicarbonate 50 meq BID NG 12/16/24 22:00 Pantoprazole Sodium 40 mg BID IV 12/16/24 22:00 Lactulose 30 ml Q8H NG 12/16/24 22:00 objective Gen.: Patient lying in bed in medical ICU. Intubated on mechanical ventilator. Head: Normocephalic, atraumatic. Eyes: PERRLA. Ears: Normal external anatomy. Throat: Endotracheal tube and orogastric tube in place. Neck: Supple, trachea midline. Chest: Transmitted breath sounds bilaterally. Decreased air entry bilaterally. No wheezing. Bibasilar crackles. Cardiovascular: Positive S1, positive S2. Regular rate and rhythm. Abdomen: Positive bowel sounds in all 4 quadrants. Soft, nontender, nondistended. : Waterman in place. Normal external genitalia. Rectal: Deferred. Skin: Warm, dry. Intact. Extremities: 2+ radial pulses bilaterally. No lower extremity edema. Neuro: Off sedation laboratory and microbiology Laboratory Tests 12/16/24 18:00 12/16/24 10:30 12/16/24 03:00 Test 12/16/24 03:00 Range/Units Serum Glucose 101 74-106 mg/dL Assessment/Plan Impression: Acute hypoxic respiratory failure On mechanical ventilator Hepatic encephalopathy Hyperammonemia Liver cirrhosis Large volume ascites Thrombocytopenia Anemia, chronic Acute on chronic kidney disease Lactic acidosis Metabolic acidosis Events: Remains on vent support On assist control with a respiratory rate of 16, tidal volume 400, PEEP of 5, FiO2 at 30%. Off sedation Patient tolerated CPAP Awaiting for mentation to improve. ABG reviewed, compensated Chest x-ray reviewed, demonstrates mild congestive heart failure. No consolidation. No pneumothorax.. S/p 1 unit PRBC and 2 units FFP transfusion yesterday Hemoglobin stable - continue to monitor Elevated ammonia Continue lactulose. Pressors for hemodynamic support. On vasopressin 0.03 units/min Off Levophed Titrate to keep MAP above 65 mmHg/SBP above 90 mmHg. Improving pressor requirements Dopamine 2 mcg/min renally dosed. Protonix BID Continue antibiotics Follow up cultures Blood cultures show no growth in 72 hours. Ascitic cultures show no growth. Urine culture positive for GNR Monitor renal function Monitor electrolytes. Supplement as necessary. Potassium supplementation Therapeutic bronchoscopy with RML BAL performed today due to increased ET tube secretions - cleared mucous plugging from L6-L10 and R6-R10 Please see separate procedure note for details. Status post EGD by GI GI recommendations appreciated Monitor hemoglobin Labs and imaging reviewed. Rest of plan as noted below. Plan: s/p intubation on mechanical ventilator On assist control with a respiratory rate of 16, tidal volume 400, PEEP of 5, FiO2 at 30%. Titrate FIO2 to keep O2 saturation above 92%. VAP bundle Daily ABG and CXR while intubated. Off sedation Pressors for hemodynamic support. Titrate to keep MAP above 65 mmHg/SBP above 90 mmHg. Continue antibiotics. F/u cultures. On IV fluids at 100 mL an hour Monitor renal function due to Acute kidney injury. Monitor electrolytes. Supplement as necessary. Monitor ins and outs Nephrology recommendations appreciated. Metabolic acidosis - received one ampule of bicarbonate on 12/13. Status post paracentesis, albumin given. Nutritional support. Accu-Cheks, ISS. GI/DVT prophylaxis. Condition: Critical Prognosis: Poor given multiple comorbidities. Rest of plan per hospitalist and other consultants. A total of 35 minutes of critical care time was spent reviewing the patient record, examining the patient, making a diagnostic and therapeutic plan, discussing this plan with the medical personnel, following up on diagnostic studies and following the patient for clinical stability excluding any and all procedures. At least 50% of this time was spent in direct, [id number] contact. Thank you MASSIEL Arias for allowing me to participate in this patient's care. Further recommendations will depend on patient's clinical course. Please do not hesitate to contact me if you have any questions or concerns. This medical document was created using an electronic medical record system with [employer] dictation system. Although this document has been carefully reviewed, there may still be some phonetic and typographical errors. These areas are purely typographical due to imperfections of the software programs, and do not reflect any compromise in the patient's medical care. Dietary Evaluation Review Comments: 1. Considering high propofol requirements, recommend EN initiation with trickle-tube feeds of Vital HP @ 15 ml/hr 2. Provide minimal free water flushes for tube patency of 30 ml Q6 hrs (120 ml total) or per MD discretion 3. Monitor BMP/lytes and replete to WNL/PRN Expected Outcomes/Goals: Improved nutritional status Plan discussed with: Other (GLADYS Wang) Critical Care Time(min): 35 SCOTT NELSON MD Dec 16, 2024 21:11
[2024-12-16 22:53] LABS: Hematocrit 30.9 % (36.0-46.0); Hemoglobin 10.1 g/dL (12.2-16.2)
[2024-12-17] VITALS (108 sets, daily range): BP systolic 79–142; BP diastolic 52–90; PULSE 60–144; RESP 9–22; TEMP 95.5–99.1; O2SAT 90–100
[2024-12-17] MEDS: PANTOPRAZOLE 40 MG/10 ML VIAL INJ IV SCH (00:11)
[2024-12-17] MEDS: LACTULOSE 20Gm/30ML SOLN NG SCH (00:11)
[2024-12-17] MEDS: POTASSIUM EFFERVESENT TAB 25 MEQ NG SCH (00:12)
--- NOTE | 2024-12-17 01:11 | DVH ---
CHEST RADIOGRAPH Indication: POSSIBLE ASPIRATION Technique: Single frontal view of the chest was obtained Comparison: XY CHEST XRAY 1 VIEW on DOS: 12/16/24, XY CHEST PORTABLE on DOS: 12/15/24, XY CHEST XRAY 1 VIEW on DOS: 12/14/24 Findings/ IMPRESSION: Endotracheal tube and enteric tube appear in proper position. Right lower lung zone opacification con cerning for aspiration versus pneumonia. No pneumothorax
[2024-12-17 03:44] LABS: Hemoglobin 10.4 g/dL (12.2-16.2)
[2024-12-17 03:47] LABS: Hematocrit 31.6 % (36.0-46.0); Mean Corpuscular Hemoglobin 29.6 pg (28.0-32.0); Mean Corpuscular Hgb Conc. 32.8 g/dL (32.0-36.0); Mean Corpuscular Volume 90.3 fL (80.0-100.0); Platelet Count (auto) 40 10^3/uL (140-450); White Blood Cell 3.9 10^3/uL (4.4-10.8)
[2024-12-17 03:48] LABS: Anion Gap 13 (5-15); Potassium 3.9 mmol/L (3.5-5.1)
[2024-12-17 03:49] LABS: Calcium 9.2 mg/dL (8.7-10.4)
[2024-12-17 03:54] LABS: BUN/Creatinine Ratio 17.3 (10.0-20.0); Red Cell Distribution Width 27.3 % (11.8-14.3)
[2024-12-17 03:55] LABS: Basophils % (manual) 0 (0.0-2.0); Blast Cells 0; Eosinophils % (manual) 0 (0-7); Metamyelocytes % 0; Myelocytes % 0; Promyelocytes % 0; Reactive Lymphocytes 0
[2024-12-17 03:56] LABS: Blood Urea Nitrogen 49 mg/dL (9-23); Carbon Dioxide 18 mmol/L (20-31); Chloride 119 mmol/L (98-107); Glucose 115 mg/dL (74-106); Sodium 150 mmol/L (136-145)
[2024-12-17 05:08] LABS: Band Neutrophils % (manual) 3; Lymphocytes % (manual) 13 (10.0-50.0); Monocytes % (manual) 4 (0-12)
[2024-12-17 05:09] LABS: Anisocytosis Slight; Large Platelets FEW; Platelet Estimate Decrea; Tear Drop Cells FEW
[2024-12-17] MEDS: metroNIDAZOLE 500MG/100ML 100 ML IV SCH (05:48)
[2024-12-17 06:42] LABS: Base Excess -5.8 mmol/L (-2.0-3.0)
--- NOTE | 2024-12-17 10:16 | DVHPN2 ---
Progress Note - Dictate Date Seen: Dec 17, 2024 Medical Necessity Reason Pt with a Central, PICC or Fol: Yes The following are medically ne: Waterman Catheter Reason for waterman catheter: Strict I&O vital signs Vital Sign Date Time Temp Pulse Resp B/P (MAP) Pulse Ox O2 Delivery O2 Flow Rate FiO2 12/17/24 09:00 30 12/17/24 09:00 71 12/17/24 09:00 17 98 Mechanical Ventilator+ 12/17/24 08:44 104/63 12/17/24 07:45 98.8 209.8 Total Intake and Output 12/16/24 12/16/24 12/17/24 15:00 23:00 07:00 Intake Total 245.2 ml 168.8 ml 439.8 ml Output Total 975 ml 1330 ml Balance 245.2 ml -806.2 ml -890.2 ml medications Current Medications Medications Dose Ordered Sig/Leti Route Start Time Stop Time Status Last Admin Dose Admin Ondansetron HCl 4 mg Q4HP PRN IV 12/13/24 00:15 Nitroglycerin 0.4 mg Q5MINP PRN SL 12/13/24 00:15 Morphine Sulfate 2 mg Q30M PRN IV 12/13/24 00:15 Ceftriaxone Sodium 50 ml @ 100 mls/hr DAILY@2000 IV 12/13/24 20:00 Cancel Propofol 100 ml @ 1.8 mls/hr Q24H IV 12/13/24 07:00 12/15/24 16:27 3.6 MLS/HR Norepinephrine Bitartrate 250 ml @ 3.75 mls/hr Q24H IV 12/13/24 08:15 12/15/24 05:54 7.5 MLS/HR Fentanyl Citrate 250 ml @ 2.5 mls/hr Q24H IV 12/13/24 10:00 12/15/24 06:45 2.5 MLS/HR Ceftriaxone Sodium/Dextrose 50 ml @ 50 mls/hr DAILY IV 12/14/24 10:00 12/16/24 09:14 50 MLS/HR Vasopressin 20 units/Sodium Chloride 100 ml @ 9 mls/hr Q11H7M IV 12/13/24 16:00 12/16/24 18:32 9 MLS/HR Dopamine HCl/ Dextrose 250 ml @ 4.613 mls/ hr Q24H IV 12/14/24 10:45 12/16/24 13:44 4.613 MLS/HR Diagnostic Test (Pha) 1 strip BID 12/15/24 22:00 12/17/24 00:12 1 STRIP Potassium Bicarbonate 50 meq BID NG 12/16/24 22:00 12/17/24 00:12 50 MEQ Pantoprazole Sodium 40 mg BID IV 12/16/24 22:00 12/17/24 00:11 40 MG Lactulose 30 ml Q8H NG 12/16/24 22:00 12/17/24 05:49 30 ML Metronidazole 100 ml @ 100 mls/hr Q8HR IV 12/17/24 06:00 12/17/24 05:48 100 MLS/HR Dexmedetomidine HCl 400 mcg/ Dextrose 100 ml @ 3.065 mls/ hr Q24H IV 12/17/24 07:30 12/17/24 08:44 3.065 MLS/HR laboratory and microbiology Laboratory Tests 12/17/24 03:00 Test 12/17/24 03:00 Range/Units Serum Glucose 115 H 74-106 mg/dL Assessment/Plan Impression: Acute hypoxic respiratory failure On mechanical ventilator Hepatic encephalopathy Hyperammonemia Liver cirrhosis Large volume ascites Thrombocytopenia Anemia, chronic Acute on chronic kidney disease Lactic acidosis Metabolic acidosis Events: Remains on vent support On assist control with a respiratory rate of 16, tidal volume 400, PEEP of 5, FiO2 at 30%. on precedex minimal dose weak but beginning to wake up overnight secretions reported s/p bronch may need further pulmonary toilet /clearance prior to intubation family at bedside Plan: sedation holiday prededex cpap when more awake extub when ready otherwise supportive care Status post paracentesis, albumin given. abd soft GI/DVT prophylaxis. Condition: Critical Critical Care Time(min): 35 min Dietary Evaluation Review Comments: 1. Considering high propofol requirements, recommend EN initiation with trickle-tube feeds of Vital HP @ 15 ml/hr 2. Provide minimal free water flushes for tube patency of 30 ml Q6 hrs (120 ml total) or per MD discretion 3. Monitor BMP/lytes and replete to WNL/PRN Expected Outcomes/Goals: Improved nutritional status Plan discussed with: Daughter XUGILBERTOHAN BRYANTESTELA HARE Dec 17, 2024 10:16
--- NOTE | 2024-12-17 10:39 | DVHNC2 ---
Procedure - bronchoscopy and br washings indication: suspected aspiration and mucus plugs procedure in detail consent and t/out disposable scope used pt placed on 100% Fi02 scope advanced via ETT tracheo-br tree examined signs of severe inflammation moderate amount of mucus loosened with 3o cc of ns , friable mucosa no endobr lesions at the end of procedure scope removed no complications KALPESH LANGFORD MD Dec 17, 2024 10:39
--- NOTE | 2024-12-17 11:26 | DVHPN2 ---
Progress Note Date Seen: Dec 17, 2024 Resident Creating Document: VERONICA MIN RESIDENT Medical Necessity Reason Pt with a Central, PICC or Fol: Yes The following are medically ne: Waterman Catheter Reason for waterman catheter: Strict I&O Subjective Review of Systems Reason for Consultation GI bleed History of Present Illness Patient is 74-year-old female with known medical history of liver cirrhosis who brought to the hospital for altered mental level of consciousness. Over the night of hospitalization patient's mental status continued to be worsened, early in the morning on 12/13/2024 patient started having hematemesis and patient was intubated in ER for airway protection and started on mechanical ventilation. GI consultation has been done for GI bleed and management of liver cirrhosis. Past Medical History Liver cirrhosis, esophageal varices, end-stage liver disease with the ascites , hepatic encephalopathy Past Surgical History History of paracentesis Patient seen and examined at bedside. Continued to be on mechanical ventilation, intubated. Off vasopressors. No bleeding from NG suction. Hemoglobin stable. On Protonix IV b.i.d.. Undergoing CPAP trial and awaiting for extubation. Objective vital signs Vital Sign Date Time Temp Pulse Resp B/P (MAP) Pulse Ox O2 Delivery O2 Flow Rate FiO2 12/17/24 10:42 76 20 103/64 (77) 100 30 12/17/24 09:00 Mechanical Ventilator+ 12/17/24 07:45 98.8 209.8 Total Intake and Output 12/16/24 12/16/24 12/17/24 15:00 23:00 07:00 Intake Total 245.2 ml 168.8 ml 439.8 ml Output Total 975 ml 1330 ml Balance 245.2 ml -806.2 ml -890.2 ml medications Current Medications Medications Dose Ordered Sig/Leti Route Start Time Stop Time Status Last Admin Dose Admin Ondansetron HCl 4 mg Q4HP PRN IV 12/13/24 00:15 Nitroglycerin 0.4 mg Q5MINP PRN SL 12/13/24 00:15 Morphine Sulfate 2 mg Q30M PRN IV 12/13/24 00:15 Ceftriaxone Sodium 50 ml @ 100 mls/hr DAILY@2000 IV 12/13/24 20:00 Cancel Propofol 100 ml @ 1.8 mls/hr Q24H IV 12/13/24 07:00 12/15/24 16:27 3.6 MLS/HR Norepinephrine Bitartrate 250 ml @ 3.75 mls/hr Q24H IV 12/13/24 08:15 12/15/24 05:54 7.5 MLS/HR Fentanyl Citrate 250 ml @ 2.5 mls/hr Q24H IV 12/13/24 10:00 12/15/24 06:45 2.5 MLS/HR Ceftriaxone Sodium/Dextrose 50 ml @ 50 mls/hr DAILY IV 12/14/24 10:00 12/16/24 09:14 50 MLS/HR Vasopressin 20 units/Sodium Chloride 100 ml @ 9 mls/hr Q11H7M IV 12/13/24 16:00 12/16/24 18:32 9 MLS/HR Dopamine HCl/ Dextrose 250 ml @ 4.613 mls/ hr Q24H IV 12/14/24 10:45 12/16/24 13:44 4.613 MLS/HR Diagnostic Test (Pha) 1 strip BID 12/15/24 22:00 12/17/24 00:12 1 STRIP Potassium Bicarbonate 50 meq BID NG 12/16/24 22:00 12/17/24 00:12 50 MEQ Pantoprazole Sodium 40 mg BID IV 12/16/24 22:00 12/17/24 00:11 40 MG Lactulose 30 ml Q8H NG 12/16/24 22:00 12/17/24 05:49 30 ML Metronidazole 100 ml @ 100 mls/hr Q8HR IV 12/17/24 06:00 12/17/24 05:48 100 MLS/HR Dexmedetomidine HCl 400 mcg/ Dextrose 100 ml @ 3.065 mls/ hr Q24H IV 12/17/24 07:30 12/17/24 08:44 3.065 MLS/HR Examination Physical examination: General Appearance: Intubated with mechanical ventilation . HEENT: Atraumatic, PERRLA, EOMI, Mucous membrane moist/pink Respiratory: Clear to auscultation, Normal air movement Cardiovascular: Regular rate, Normal S1, Normal S2, No murmurs, no chest wall tenderness Abdominal: Normal bowel sounds, Soft, No tenderness, No hepatospenomegaly, No masses Extremities: No clubbing, No cyanosis, No edema, Normal pulses, No tenderness/swelling Skin: No rashes, No breakdown, No significant lesion laboratory and microbiology Laboratory Tests 12/17/24 03:00 Test 12/17/24 03:00 Range/Units Serum Glucose 115 H 74-106 mg/dL Microbiology Date/Time Source Procedure Growth Status 12/16/24 18:17 Bronchial Washings Gram Stain Pending Resulted 12/16/24 18:17 Bronchial Washings Respiratory Culture - Preliminary Resulted 12/13/24 12:54 Nose MRSA Screen - Final Complete 12/13/24 10:15 Ascities Fluid Gram Stain - Final Resulted 12/13/24 10:15 Ascities Fluid Body Fluid Culture - Preliminary Resulted 12/13/24 06:00 Urine - Waterman [place] Urine Culture - Final Escherichia coli Complete 12/12/24 20:00 Blood Blood Culture - Preliminary NO GROWTH AFTER 72 HOURS OF INCUBATION. Resulted Labs and/or images reviewed: Labs reviewed by me, Image(s) reviewed by me Problem List/Assessment/Plan Problem List/Assessment/Plan Problem List/Assessment/Plan Liver cirrhosis Trace distal esophageal varices without bleeding Active upper GI bleed due to Severe gastropathy with gastritis Antral polyps of stomach Hepatic encephalopathy Esophageal variceal Moderate ascites Hypoalbuminemia Hyperammonemia Upper GI bleed Thrombocytopenia GER hemodynamically mediated UTI Plan/recommendation. EGD on 12/14/2024:1. Patient had trace distal esophageal varices without stigmata of bleeding from the varices 2. Patient had a moderate amount of old blood in the stomach after this was aspirated patient was noted to have underlying [id number] gastropathy and gastritis with multiple areas of oozing from the stomach lining 3. There was a 1.5-2 cm pre-pyloric inflammatory antral polyp that was oozing, it was initially biopsied and then removed completely via hot snare polypectomy 4. There were three benign-appearing gastric polyps in the body of the that were seen and removed via hot snare polypectomy 5. Otherwise normal examination up to the 2nd and 3rd part of the duodenum -continue Protonix 40 mg IV b.i.d., continue monitor H&H. -lactulose 30 mg q.6 via NG tube, ammonia is trending down, continue to monitor. - H&H is stable 10.4/31.6 -administration IV albumin given after paracentesis: Removed fluid around 6.9 L. -IV antibiotics: Paracentesis fluid analysis showed WBC less than 200, less likely spontaneous bacterial peritonitis. -closely monitor fluid and electrolyte status, maintain map greater than 65. Can initiate vasopressor Levophed if needed. -we will continue to monitor and following up. Plan discussed with Plan discussed with: Patient, Other Dietary Evaluation Review Comments: 1. Considering high propofol requirements, recommend EN initiation with trickle-tube feeds of Vital HP @ 15 ml/hr 2. Provide minimal free water flushes for tube patency of 30 ml Q6 hrs (120 ml total) or per MD discretion 3. Monitor BMP/lytes and replete to WNL/PRN Expected Outcomes/Goals: Improved nutritional status VERONICA MIN RESIDENT Dec 17, 2024 11:26
--- NOTE | 2024-12-17 11:59 | DVHPN2 ---
Progress Note - Dictate Date Seen: Dec 17, 2024 Medical Necessity Reason Pt with a Central, PICC or Fol: Yes The following are medically ne: Waterman Catheter Reason for waterman catheter: Strict I&O Subjective Remains intubated on ventilator support critically ill in ICU. She underwent bronchoscopy this morning per refueler who is in the ICU. Apparently showed inflammatory changes but no evidence of aspiration. vital signs Vital Sign Date Time Temp Pulse Resp B/P (MAP) Pulse Ox O2 Delivery O2 Flow Rate FiO2 12/17/24 11:28 63 12 104/62 (76) 100 30 12/17/24 09:00 Mechanical Ventilator+ 12/17/24 07:45 98.8 209.8 Total Intake and Output 12/16/24 12/16/24 12/17/24 15:00 23:00 07:00 Intake Total 245.2 ml 168.8 ml 439.8 ml Output Total 975 ml 1330 ml Balance 245.2 ml -806.2 ml -890.2 ml medications Current Medications Medications Dose Ordered Sig/Leti Route Start Time Stop Time Status Last Admin Dose Admin Ondansetron HCl 4 mg Q4HP PRN IV 12/13/24 00:15 Nitroglycerin 0.4 mg Q5MINP PRN SL 12/13/24 00:15 Morphine Sulfate 2 mg Q30M PRN IV 12/13/24 00:15 Ceftriaxone Sodium 50 ml @ 100 mls/hr DAILY@2000 IV 12/13/24 20:00 Cancel Propofol 100 ml @ 1.8 mls/hr Q24H IV 12/13/24 07:00 12/15/24 16:27 3.6 MLS/HR Norepinephrine Bitartrate 250 ml @ 3.75 mls/hr Q24H IV 12/13/24 08:15 12/15/24 05:54 7.5 MLS/HR Fentanyl Citrate 250 ml @ 2.5 mls/hr Q24H IV 12/13/24 10:00 12/15/24 06:45 2.5 MLS/HR Ceftriaxone Sodium/Dextrose 50 ml @ 50 mls/hr DAILY IV 12/14/24 10:00 12/17/24 11:11 50 MLS/HR Vasopressin 20 units/Sodium Chloride 100 ml @ 9 mls/hr Q11H7M IV 12/13/24 16:00 12/16/24 18:32 9 MLS/HR Dopamine HCl/ Dextrose 250 ml @ 4.613 mls/ hr Q24H IV 12/14/24 10:45 12/16/24 13:44 4.613 MLS/HR Diagnostic Test (Pha) 1 strip BID 12/15/24 22:00 12/17/24 11:38 1 STRIP Pantoprazole Sodium 40 mg BID IV 12/16/24 22:00 12/17/24 11:11 40 MG Lactulose 30 ml Q8H NG 12/16/24 22:00 12/17/24 05:49 30 ML Metronidazole 100 ml @ 100 mls/hr Q8HR IV 12/17/24 06:00 12/17/24 05:48 100 MLS/HR Dexmedetomidine HCl 400 mcg/ Dextrose 100 ml @ 3.065 mls/ hr Q24H IV 12/17/24 07:30 12/17/24 08:44 3.065 MLS/HR objective Sedated comfortable on ventilator without acute cardiopulmonary distress. HEENT pupils equal round react to light. Heart regular and rhythm as well as S2. Lungs fair wound without any audible wheezing. Abdomen is slightly distended tympanic to palpation soft. Extremities trace edema around ankles. laboratory and microbiology Laboratory Tests 12/17/24 03:00 Test 12/17/24 03:00 Range/Units Serum Glucose 115 H 74-106 mg/dL Assessment/Plan We will do daily IV potassium replacement given patient is on lactulose. Ammonia level is normalized. Continue lactulose q.8 hours for now. Follow the labs in the morning. CPAP trials and extubation per pulmonology. Otherwise continue rest of supportive care and treatment and further clinical management per clinical course. Discussed with the nurse regarding care plan at bedside. Problems(with codes): (1) Hepatic encephalopathy (2) Anemia (3) Hyperammonemia (4) Ascites (5) Liver cirrhosis (6) Pancytopenia Dietary Evaluation Review Comments: 1. Considering high propofol requirements, recommend EN initiation with trickle-tube feeds of Vital HP @ 15 ml/hr 2. Provide minimal free water flushes for tube patency of 30 ml Q6 hrs (120 ml total) or per MD discretion 3. Monitor BMP/lytes and replete to WNL/PRN Expected Outcomes/Goals: Improved nutritional status Plan discussed with: Other ABHISHEK FINE MD Dec 17, 2024 11:59
[2024-12-17 13:35] LABS: Base Excess -5.4 mmol/L (-2.0-3.0)
[2024-12-17] MEDS: EPINEPHrine HCL 0.5 ML NEB ONE ×2 (15:31→18:29)
--- NOTE | 2024-12-17 16:39 | DVHPN2 ---
Progress Note - Dictate Date Seen: Dec 17, 2024 Medical Necessity Reason Pt with a Central, PICC or Fol: Yes The following are medically ne: Waterman Catheter Reason for waterman catheter: Strict I&O Subjective And extubated, family members at bedside, CATALOGUE MAKER at bedside vital signs Vital Sign Date Time Temp Pulse Resp B/P (MAP) Pulse Ox O2 Delivery O2 Flow Rate FiO2 12/17/24 16:00 17 99 Cool Aerosol 10 40 40 12/17/24 16:00 78 12/17/24 15:00 97.3 109/64 (79) 207.1 Total Intake and Output 12/16/24 12/16/24 12/17/24 15:00 23:00 07:00 Intake Total 245.2 ml 168.8 ml 439.8 ml Output Total 975 ml 1330 ml Balance 245.2 ml -806.2 ml -890.2 ml medications Current Medications Medications Dose Ordered Sig/Leti Route Start Time Stop Time Status Last Admin Dose Admin Ondansetron HCl 4 mg Q4HP PRN IV 12/13/24 00:15 Nitroglycerin 0.4 mg Q5MINP PRN SL 12/13/24 00:15 Morphine Sulfate 2 mg Q30M PRN IV 12/13/24 00:15 Ceftriaxone Sodium 50 ml @ 100 mls/hr DAILY@1999 IV 12/13/24 20:00 Cancel Propofol 100 ml @ 1.8 mls/hr Q24H IV 12/13/24 07:00 12/15/24 16:27 3.6 MLS/HR Norepinephrine Bitartrate 250 ml @ 3.75 mls/hr Q24H IV 12/13/24 08:15 12/15/24 05:54 7.5 MLS/HR Fentanyl Citrate 250 ml @ 2.5 mls/hr Q24H IV 12/13/24 10:00 12/15/24 06:45 2.5 MLS/HR Ceftriaxone Sodium/Dextrose 50 ml @ 50 mls/hr DAILY IV 12/14/24 10:00 12/17/24 11:11 50 MLS/HR Vasopressin 20 units/Sodium Chloride 100 ml @ 9 mls/hr Q11H7M IV 12/13/24 16:00 12/16/24 18:32 9 MLS/HR Dopamine HCl/ Dextrose 250 ml @ 4.613 mls/ hr Q24H IV 12/14/24 10:45 12/16/24 13:44 4.613 MLS/HR Diagnostic Test (Pha) 1 strip BID 12/15/24 22:00 12/17/24 11:38 1 STRIP Pantoprazole Sodium 40 mg BID IV 12/16/24 22:00 12/17/24 11:11 40 MG Lactulose 30 ml Q8H NG 12/16/24 22:00 12/17/24 05:49 30 ML Metronidazole 100 ml @ 100 mls/hr Q8HR IV 12/17/24 06:00 12/17/24 15:00 100 MLS/HR Dexmedetomidine HCl 400 mcg/ Dextrose 100 ml @ 3.065 mls/ hr Q24H IV 12/17/24 07:30 12/17/24 08:44 3.065 MLS/HR Potassium Chloride 50 ml @ 25 mls/hr DAILY IV 12/18/24 10:00 Lorazepam 0.5 mg Q6HP PRN IV 12/17/24 16:30 objective Gen: nad, thin heent: nc/at, mmm lungs: cta anteriorly cvs: no rub laboratory and microbiology Laboratory Tests 12/17/24 03:00 Test 12/17/24 03:00 Range/Units Serum Glucose 115 H 74-106 mg/dL Assessment/Plan Problem List/Assessment/Plan Acute kidney injury superimposed Chronic Kidney Disease secondary hemodynamic mediated, FeNa < 1% Hepatorenal syndrome Acute respiratory failure, intubated on ventilator Hepatic encephalopathy Urinary tract infection GI bleeding Liver cirrhosis Ascites Hypoalbuminemia Pancytopenia Recommendations - hypotonic IV fluids - discussed with family. Dietary Evaluation Review Comments: 1. Considering high propofol requirements, recommend EN initiation with trickle-tube feeds of Vital HP @ 15 ml/hr 2. Provide minimal free water flushes for tube patency of 30 ml Q6 hrs (120 ml total) or per MD discretion 3. Monitor BMP/lytes and replete to WNL/PRN Expected Outcomes/Goals: Improved nutritional status Plan discussed with: Daughter CINTHYA EVANS Missael HARE Dec 17, 2024 16:39
[2024-12-17] MEDS: LORazepam 2MG/ML-1ML VIAL IV PRN (16:43)
[2024-12-17] MEDS: SOD CHL 0.45% 1,000 ML IV SCH (16:45)
[2024-12-17] MEDS ORDERED: EPINEPHrine HCL 0.5 ML NEB NEB ONE (18:30)
[2024-12-17] MEDS: methylPREDNISolone SOD SUCC 125 MG/2 ML VL IV ONE (18:32)
[2024-12-17] MEDS: EPINEPHrine HCL 0.5 ML NEB NEB ONE (18:57)
[2024-12-17 19:16] LABS: Base Excess -6.5 mmol/L (-2.0-3.0)
[2024-12-17] MEDS ORDERED: FLUMAZENIL 0.1 MG/ML INJ 10ML MDV IV STA (20:22)
[2024-12-17] MEDS: FLUMAZENIL 0.1 MG/ML INJ 10ML MDV IV ONE ×2 (20:33→20:36)
[2024-12-17 20:44] LABS: Base Excess -7.2 mmol/L (-2.0-3.0)
[2024-12-18] VITALS (100 sets, daily range): BP systolic 86–144; BP diastolic 47–85; PULSE 66–154; RESP 8–18; TEMP 96.4–99.9; O2SAT 92–100
[2024-12-18 04:36] LABS: Basophils # (auto) 0 10 ^3/uL (0-0.2); Basophils % (auto) 0.1 % (0.0-2.0); Eosinophils # (auto) 0 10 ^3/uL (0-0.8); Lymphocytes # (auto) 0.3 10 ^3/uL (0.4-5.4); Monocytes # (auto) 0.1 10 ^3/uL (0-1.3); Neutrophils # (auto) 5.3 10 ^3/uL (1.6-8.6); White Blood Cell 5.7 10^3/uL (4.4-10.8)
[2024-12-18 04:39] LABS: Lymphocytes % (auto) 5.1 % (10.0-50.0); Mean Corpuscular Hgb Conc. 33.2 g/dL (32.0-36.0); Mean Corpuscular Volume 90.4 fL (80.0-100.0); Monocytes % (auto) 2.2 % (0.0-12.0); Neutrophils % (auto) 92.6 % (37.0-80.0); Nucleated Red Blood Cells % 0.1 %; Platelet Count (auto) 38 10^3/uL (140-450); Red Blood Cells 3.32 10^6/uL (4.0-5.20)
[2024-12-18 04:44] LABS: Red Cell Distribution Width 27.3 % (11.8-14.3)
[2024-12-18 04:45] LABS: Anion Gap 11 (5-15); Potassium 3.6 mmol/L (3.5-5.1)
[2024-12-18 04:46] LABS: Calcium 9.2 mg/dL (8.7-10.4)
[2024-12-18 04:51] LABS: BUN/Creatinine Ratio 19.5 (10.0-20.0); Magnesium 2.3 mg/dL (1.6-2.6)
[2024-12-18 05:07] LABS: Blood Urea Nitrogen 57 mg/dL (9-23); Carbon Dioxide 20 mmol/L (20-31); Chloride 119 mmol/L (98-107); Glucose 125 mg/dL (74-106); Sodium 150 mmol/L (136-145)
[2024-12-18 06:07] LABS: Anisocytosis Marked; Platelet Estimate Markedly Decreased
[2024-12-18 06:08] LABS: Macrocytosis Slight
[2024-12-18 08:25] LABS: Base Excess -4.8 mmol/L (-2.0-3.0)
--- NOTE | 2024-12-18 09:03 | DVHPN2 ---
Progress Note - Dictate Date Seen: Dec 18, 2024 Medical Necessity Reason Pt with a Central, PICC or Fol: Yes The following are medically ne: Waterman Catheter Reason for waterman catheter: Strict I&O Subjective Requiring facemask for supplemental oxygen vital signs Vital Sign Date Time Temp Pulse Resp B/P (MAP) Pulse Ox O2 Delivery O2 Flow Rate FiO2 12/18/24 07:45 76 128/80 99 Nasal BiPAP Mask 30 12/18/24 06:45 98.6 11 209.5 12/18/24 06:00 12 Total Intake and Output 12/17/24 12/17/24 12/18/24 15:00 23:00 07:00 Intake Total 105.294 ml 270.167 ml 819.141 ml Output Total 250 ml 200 ml Balance 105.294 ml 20.167 ml 619.141 ml medications Current Medications Medications Dose Ordered Sig/Leti Route Start Time Stop Time Status Last Admin Dose Admin Ondansetron HCl 4 mg Q4HP PRN IV 12/13/24 00:15 Nitroglycerin 0.4 mg Q5MINP PRN SL 12/13/24 00:15 Morphine Sulfate 2 mg Q30M PRN IV 12/13/24 00:15 Ceftriaxone Sodium 50 ml @ 100 mls/hr DAILY@2000 IV 12/13/24 20:00 Cancel Propofol 100 ml @ 1.8 mls/hr Q24H IV 12/13/24 07:00 12/15/24 16:27 3.6 MLS/HR Norepinephrine Bitartrate 250 ml @ 3.75 mls/hr Q24H IV 12/13/24 08:15 12/15/24 05:54 7.5 MLS/HR Fentanyl Citrate 250 ml @ 2.5 mls/hr Q24H IV 12/13/24 10:00 12/15/24 06:45 2.5 MLS/HR Ceftriaxone Sodium/Dextrose 50 ml @ 50 mls/hr DAILY IV 12/14/24 10:00 12/17/24 11:11 50 MLS/HR Vasopressin 20 units/Sodium Chloride 100 ml @ 9 mls/hr Q11H7M IV 12/13/24 16:00 12/16/24 18:32 9 MLS/HR Dopamine HCl/ Dextrose 250 ml @ 4.613 mls/ hr Q24H IV 12/14/24 10:45 12/16/24 13:44 4.613 MLS/HR Diagnostic Test (Pha) 1 strip BID 12/15/24 22:00 12/17/24 21:49 1 STRIP Pantoprazole Sodium 40 mg BID IV 12/16/24 22:00 12/17/24 22:06 40 MG Lactulose 30 ml Q8H NG 12/16/24 22:00 12/18/24 06:00 30 ML Metronidazole 100 ml @ 100 mls/hr Q8HR IV 12/17/24 06:00 12/18/24 06:00 100 MLS/HR Dexmedetomidine HCl 400 mcg/ Dextrose 100 ml @ 3.065 mls/ hr Q24H IV 12/17/24 07:30 12/17/24 08:44 3.065 MLS/HR Potassium Chloride 50 ml @ 25 mls/hr DAILY IV 12/18/24 10:00 Lorazepam 0.5 mg Q6HP PRN IV 12/17/24 16:30 12/17/24 16:43 0.5 MG Sodium Chloride 1,000 ml @ 100 mls/hr Q10H IV 12/17/24 16:45 12/18/24 02:45 100 MLS/HR Flumazenil 0.2 mg ONCE STAT IV 12/17/24 20:22 12/17/24 20:23 Cancel objective Gen: nad, thin heent: nc/at, mmm lungs: Occasional rhonchi cvs: no rub laboratory and microbiology Laboratory Tests 12/18/24 03:30 Test 12/18/24 03:30 Range/Units Serum Glucose 125 H 74-106 mg/dL Assessment/Plan Problem List/Assessment/Plan Acute kidney injury superimposed Chronic Kidney Disease secondary hemodynamic mediated, FeNa < 1% Hepatorenal syndrome Acute respiratory failure, intubated on ventilator Hepatic encephalopathy Urinary tract infection GI bleeding Liver cirrhosis Ascites Hypoalbuminemia Pancytopenia Recommendations -will up titrate hypotonic IV fluids given continued hypernatremia and worsening GFR Dietary Evaluation Review Comments: 1. Considering high propofol requirements, recommend EN initiation with trickle-tube feeds of Vital HP @ 15 ml/hr 2. Provide minimal free water flushes for tube patency of 30 ml Q6 hrs (120 ml total) or per MD discretion 3. Monitor BMP/lytes and replete to WNL/PRN Expected Outcomes/Goals: Improved nutritional status Plan discussed with: Other CNITHYA EVANS MD Dec 18, 2024 09:03
[2024-12-18] MEDS: POTASSIUM CHL 10MEQ/50ML 50 ML IV SCH (10:00)
--- NOTE | 2024-12-18 10:26 | DVHPN2 ---
Progress Note Date Seen: Dec 18, 2024 Resident Creating Document: PATRICIA BRITTON RESIDENT Medical Necessity Reason Pt with a Central, PICC or Fol: Yes The following are medically ne: Waterman Catheter Reason for waterman catheter: Strict I&O Subjective Review of Systems History of Present Illness Patient is 74-year-old female with known medical history of liver cirrhosis who brought to the hospital for altered mental level of consciousness. Over the night of hospitalization patient's mental status continued to be worsened, early in the morning on 12/13/2024 patient started having hematemesis and patient was intubated in ER for airway protection and started on mechanical ventilation. GI consultation has been done for GI bleed and management of liver cirrhosis. Past Medical History Liver cirrhosis, esophageal varices, end-stage liver disease with the ascites , hepatic encephalopathy Past Surgical History History of paracentesis Patient seen and examined at bedside. Extubated. On oxygen via mask. NG tube. No acute night events. No complaints of nausea, vomiting, diarrhea, any other complaints. Objective vital signs Vital Sign Date Time Temp Pulse Resp B/P (MAP) Pulse Ox O2 Delivery O2 Flow Rate FiO2 12/18/24 07:45 76 128/80 99 Nasal BiPAP Mask 30 12/18/24 06:45 98.6 11 209.5 12/18/24 06:00 12 Total Intake and Output 12/17/24 12/17/24 12/18/24 15:00 23:00 07:00 Intake Total 105.294 ml 270.167 ml 819.141 ml Output Total 250 ml 200 ml Balance 105.294 ml 20.167 ml 619.141 ml medications Current Medications Medications Dose Ordered Sig/Leti Route Start Time Stop Time Status Last Admin Dose Admin Ondansetron HCl 4 mg Q4HP PRN IV 12/13/24 00:15 Nitroglycerin 0.4 mg Q5MINP PRN SL 12/13/24 00:15 Morphine Sulfate 2 mg Q30M PRN IV 12/13/24 00:15 Ceftriaxone Sodium 50 ml @ 100 mls/hr DAILY@2000 IV 12/13/24 20:00 Cancel Propofol 100 ml @ 1.8 mls/hr Q24H IV 12/13/24 07:00 12/15/24 16:27 3.6 MLS/HR Norepinephrine Bitartrate 250 ml @ 3.75 mls/hr Q24H IV 12/13/24 08:15 12/15/24 05:54 7.5 MLS/HR Fentanyl Citrate 250 ml @ 2.5 mls/hr Q24H IV 12/13/24 10:00 12/15/24 06:45 2.5 MLS/HR Ceftriaxone Sodium/Dextrose 50 ml @ 50 mls/hr DAILY IV 12/14/24 10:00 12/18/24 09:16 50 MLS/HR Vasopressin 20 units/Sodium Chloride 100 ml @ 9 mls/hr Q11H7M IV 12/13/24 16:00 12/16/24 18:32 9 MLS/HR Dopamine HCl/ Dextrose 250 ml @ 4.613 mls/ hr Q24H IV 12/14/24 10:45 12/16/24 13:44 4.613 MLS/HR Diagnostic Test (Pha) 1 strip BID 12/15/24 22:00 12/18/24 09:17 1 STRIP Pantoprazole Sodium 40 mg BID IV 12/16/24 22:00 12/18/24 09:16 40 MG Lactulose 30 ml Q8H NG 12/16/24 22:00 12/18/24 06:00 30 ML Metronidazole 100 ml @ 100 mls/hr Q8HR IV 12/17/24 06:00 12/18/24 06:00 100 MLS/HR Dexmedetomidine HCl 400 mcg/ Dextrose 100 ml @ 3.065 mls/ hr Q24H IV 12/17/24 07:30 12/17/24 08:44 3.065 MLS/HR Potassium Chloride 50 ml @ 25 mls/hr DAILY IV 12/18/24 10:00 Lorazepam 0.5 mg Q6HP PRN IV 12/17/24 16:30 12/17/24 16:43 0.5 MG Flumazenil 0.2 mg ONCE STAT IV 12/17/24 20:22 12/17/24 20:23 Cancel Dextrose 1,000 ml @ 75 mls/hr [id number] IV 12/18/24 09:15 Examination General Appearance: Intubated, sedated on mechanical ventilation. Head Exam: Normal inspection Neck Exam: Normal inspection. Non-tender. Normal alignment Pulmonary/Respiratory: Chest non-tender. Clear bilateral breath sounds Cardiovascular/Chest: Regular rate and rhythm. No murmurs. No JVD. Peripheral Pulses: 2+ Radial (R). 2+ Radial (L). 2+ Pedal (R). 2+ Pedal (L) Abdominal Exam: Abdomen is soft, nontender. Positive bowel sounds. Ankle Exam: Negative ankle edema Lower extremities: 2+ lower extremity edema, chronic venous stasis. Neuro/Mental Status: A&O x4. Coherent Thoughts/Psych: Normal thought pattern. Appropriate mood and affect. Good judgement and insight Appearance: In no acute distress Skin Exam: Normal inspection. Normal color. Warm. Dry laboratory and microbiology Laboratory Tests 12/18/24 03:30 Test 12/18/24 03:30 Range/Units Serum Glucose 125 H 74-106 mg/dL Microbiology Date/Time Source Procedure Growth Status 12/16/24 18:17 Bronchial Washings Gram Stain - Final Complete 12/16/24 18:17 Respiratory Culture - Final Escherichia coli - ESBL Complete 12/13/24 12:54 Nose MRSA Screen - Final Complete 12/13/24 10:15 Ascities Fluid Gram Stain - Final Resulted 12/13/24 10:15 Ascities Fluid Body Fluid Culture - Preliminary Resulted 12/13/24 06:00 Urine - [place] Urine Culture - Final Escherichia coli Complete 12/12/24 20:00 Blood Blood Culture - Final NO GROWTH AFTER 5 DAYS OF INCUBATION. Complete Problem List/Assessment/Plan Problem List/Assessment/Plan Liver cirrhosis Trace distal esophageal varices without bleeding Active upper GI bleed due to Severe gastropathy with gastritis Antral polyps of stomach Hepatic encephalopathy Esophageal variceal Moderate ascites Hypoalbuminemia Hyperammonemia Upper GI bleed Thrombocytopenia GER hemodynamically mediated UTI Plan/recommendation. Dr Foley EGD on 12/14/2024:1. Patient had trace distal esophageal varices without stigmata of bleeding from the varices 2. Patient had a moderate amount of old blood in the stomach after this was aspirated patient was noted to have underlying qsyldrgd-ln-[id number] gastropathy and gastritis with multiple areas of oozing from the stomach lining 3. There was a 1.5-2 cm pre-pyloric inflammatory antral polyp that was oozing, it was initially biopsied and then removed completely via hot snare polypectomy 4. There were three benign-appearing gastric polyps in the body of the that were seen and removed via hot snare polypectomy 5. Otherwise normal examination up to the 2nd and 3rd part of the duodenum -continue Protonix 40 mg IV b.i.d., continue monitor H&H. -lactulose 30 mg q.6 via NG tube, ammonia is trending down, continue to monitor. -1 unit of PRBC given hemoglobin less than eight, with active GI bleed. 2 PRBC has been given yesterday. -administration IV albumin given after paracentesis: Removed fluid around 6.9 L. -IV antibiotics: Paracentesis fluid analysis showed WBC less than 200, less likely spontaneous bacterial peritonitis. -closely monitor fluid and electrolyte status, maintain map greater than 65. Can initiate vasopressor Levophed if needed. -we will continue to monitor and following up. Plan discussed with: Other (RN) Dietary Evaluation Review Comments: 1. Considering high propofol requirements, recommend EN initiation with trickle-tube feeds of Vital HP @ 15 ml/hr 2. Provide minimal free water flushes for tube patency of 30 ml Q6 hrs (120 ml total) or per MD discretion 3. Monitor BMP/lytes and replete to WNL/PRN Expected Outcomes/Goals: Improved nutritional status PATRICIA BRITTON RESIDENT Dec 18, 2024 10:26
--- NOTE | 2024-12-18 10:45 | DVHPN2 ---
Progress Note - Dictate Date Seen: Dec 18, 2024 Medical Necessity Reason Pt with a Central, PICC or Fol: Yes The following are medically ne: Waterman Catheter Reason for waterman catheter: Strict I&O vital signs Vital Sign Date Time Temp Pulse Resp B/P (MAP) Pulse Ox O2 Delivery O2 Flow Rate FiO2 12/18/24 07:45 76 128/80 99 Nasal BiPAP Mask 30 12/18/24 06:45 98.6 11 209.5 12/18/24 06:00 12 Total Intake and Output 12/17/24 12/17/24 12/18/24 15:00 23:00 07:00 Intake Total 105.294 ml 270.167 ml 819.141 ml Output Total 250 ml 200 ml Balance 105.294 ml 20.167 ml 619.141 ml medications Current Medications Medications Dose Ordered Sig/Leti Route Start Time Stop Time Status Last Admin Dose Admin Ondansetron HCl 4 mg Q4HP PRN IV 12/13/24 00:15 Nitroglycerin 0.4 mg Q5MINP PRN SL 12/13/24 00:15 Morphine Sulfate 2 mg Q30M PRN IV 12/13/24 00:15 Ceftriaxone Sodium 50 ml @ 100 mls/hr DAILY@2000 IV 12/13/24 20:00 Cancel Propofol 100 ml @ 1.8 mls/hr Q24H IV 12/13/24 07:00 12/15/24 16:27 3.6 MLS/HR Norepinephrine Bitartrate 250 ml @ 3.75 mls/hr Q24H IV 12/13/24 08:15 12/15/24 05:54 7.5 MLS/HR Fentanyl Citrate 250 ml @ 2.5 mls/hr Q24H IV 12/13/24 10:00 12/15/24 06:45 2.5 MLS/HR Ceftriaxone Sodium/Dextrose 50 ml @ 50 mls/hr DAILY IV 12/14/24 10:00 12/18/24 09:16 50 MLS/HR Vasopressin 20 units/Sodium Chloride 100 ml @ 9 mls/hr Q11H7M IV 12/13/24 16:00 12/16/24 18:32 9 MLS/HR Dopamine HCl/ Dextrose 250 ml @ 4.613 mls/ hr Q24H IV 12/14/24 10:45 12/16/24 13:44 4.613 MLS/HR Diagnostic Test (Pha) 1 strip BID 12/15/24 22:00 12/18/24 09:17 1 STRIP Pantoprazole Sodium 40 mg BID IV 12/16/24 22:00 12/18/24 09:16 40 MG Lactulose 30 ml Q8H NG 12/16/24 22:00 12/18/24 06:00 30 ML Metronidazole 100 ml @ 100 mls/hr Q8HR IV 12/17/24 06:00 12/18/24 06:00 100 MLS/HR Dexmedetomidine HCl 400 mcg/ Dextrose 100 ml @ 3.065 mls/ hr Q24H IV 12/17/24 07:30 12/17/24 08:44 3.065 MLS/HR Potassium Chloride 50 ml @ 25 mls/hr DAILY IV 12/18/24 10:00 Lorazepam 0.5 mg Q6HP PRN IV 12/17/24 16:30 12/17/24 16:43 0.5 MG Flumazenil 0.2 mg ONCE STAT IV 12/17/24 20:22 12/17/24 20:23 Cancel Dextrose 1,000 ml @ 75 mls/hr [id number] IV 12/18/24 09:15 laboratory and microbiology Laboratory Tests 12/18/24 03:30 Test 12/18/24 03:30 Range/Units Serum Glucose 125 H 74-106 mg/dL Assessment/Plan Impression: Acute hypoxic respiratory failure On mechanical ventilator Hepatic encephalopathy Hyperammonemia Liver cirrhosis Large volume ascites Thrombocytopenia Anemia, chronic Acute on chronic kidney disease Lactic acidosis Metabolic acidosis Events: pt s/p bronch and then extubation yesterday overnight on bipap lethargic abg this morning compensated Plan: suppl 02 prn bipap NPO swallow eval supportive care bronchodilators/abx abd soft s/p para GI/DVT prophylaxis. Condition: Critical Critical Care Time(min): 35 min Dietary Evaluation Review Comments: 1. Considering high propofol requirements, recommend EN initiation with trickle-tube feeds of Vital HP @ 15 ml/hr 2. Provide minimal free water flushes for tube patency of 30 ml Q6 hrs (120 ml total) or per MD discretion 3. Monitor BMP/lytes and replete to WNL/PRN Expected Outcomes/Goals: Improved nutritional status Plan discussed with: Patient KALPESH LANGFORD MD Dec 18, 2024 10:45
--- NOTE | 2024-12-18 11:14 | MEDREC ---
COUNTS INCLUDE 234 BEDS AT THE [facility] Intervention Section I COUNTS INCLUDE 234 BEDS AT THE [facility] Intervention: Review courses of therapy (PLEASE CONSIDER SWITCHING ANTIBIOTIC BASED ON CULTURE RESULTS ) LYNN HOUSTON PHARMACIST Dec 18, 2024 11:14
[2024-12-18 11:22] LABS: Base Excess -5.6 mmol/L (-2.0-3.0)
[2024-12-18] MEDS: D5W 5% 1,000 ML IV SCH ×2 (11:53→14:00)
--- NOTE | 2024-12-18 14:10 | DVHPN2 ---
Progress Note - Dictate Date Seen: Dec 18, 2024 Medical Necessity Reason Pt with a Central, PICC or Fol: Yes The following are medically ne: Waterman Catheter Reason for waterman catheter: Strict I&O Subjective Patient is extubated yesterday afternoon. Apparently overnight patient received benzodiazepine and IV and subsequently noted to be drowsy and altered. Therefore she received flumazenil to reverse the benzodiazepine. Currently she appears stable however still remains confused. Family at bedside vital signs Vital Sign Date Time Temp Pulse Resp B/P (MAP) Pulse Ox O2 Delivery O2 Flow Rate FiO2 12/18/24 11:24 100 Mask 10.0 12/18/24 09:45 N/A 12/18/24 08:15 127/79 12/18/24 07:45 76 12/18/24 06:45 98.6 11 209.5 Total Intake and Output 12/17/24 12/17/24 12/18/24 15:00 23:00 07:00 Intake Total 105.294 ml 270.167 ml 819.141 ml Output Total 250 ml 200 ml Balance 105.294 ml 20.167 ml 619.141 ml medications Current Medications Medications Dose Ordered Sig/Leti Route Start Time Stop Time Status Last Admin Dose Admin Ondansetron HCl 4 mg Q4HP PRN IV 12/13/24 00:15 Nitroglycerin 0.4 mg Q5MINP PRN SL 12/13/24 00:15 Ceftriaxone Sodium 50 ml @ 100 mls/hr DAILY@2000 IV 12/13/24 20:00 Cancel Norepinephrine Bitartrate 250 ml @ 3.75 mls/hr Q24H IV 12/13/24 08:15 12/15/24 05:54 7.5 MLS/HR Vasopressin 20 units/Sodium Chloride 100 ml @ 9 mls/hr Q11H7M IV 12/13/24 16:00 12/16/24 18:32 9 MLS/HR Dopamine HCl/ Dextrose 250 ml @ 4.613 mls/ hr Q24H IV 12/14/24 10:45 12/16/24 13:44 4.613 MLS/HR Diagnostic Test (Pha) 1 strip BID 12/15/24 22:00 12/18/24 09:17 1 STRIP Pantoprazole Sodium 40 mg BID IV 12/16/24 22:00 12/18/24 09:16 40 MG Lactulose 30 ml Q8H NG 12/16/24 22:00 12/18/24 06:00 30 ML Dexmedetomidine HCl 400 mcg/ Dextrose 100 ml @ 3.065 mls/ hr Q24H IV 12/17/24 07:30 12/17/24 08:44 3.065 MLS/HR Potassium Chloride 50 ml @ 25 mls/hr DAILY IV 12/18/24 10:00 12/18/24 10:00 25 MLS/HR Flumazenil 0.2 mg ONCE STAT IV 12/17/24 20:22 12/17/24 20:23 Cancel Meropenem 50 ml @ 17 mls/hr Q12H IV 12/18/24 11:30 Dextrose 1,000 ml @ 100 mls/hr Q10H IV 12/18/24 14:00 UNV objective Patient is comfortable in bed without distress. Family at bedside. Heart regular rate and rhythm S1-S2. lungs poor inspiratory without audible wheezes. abdomen soft positive bowel sounds extremities no significant edema laboratory and microbiology Laboratory Tests 12/18/24 03:30 Test 12/18/24 03:30 Range/Units Serum Glucose 125 H 74-106 mg/dL Assessment/Plan I will DC the benzodiazepines and any sedatives. Discussed with the nurse. We will get a CT of the head without contrast to further evaluate her confusion. Her ammonia level is normal. For hyponatremia we will increase the fluids to D5W at 100 an hour. Continue rest of supportive care and treatment as she is on. Further clinical management per clinical course. Problems(with codes): (1) Liver cirrhosis (2) Ascites (3) Pancytopenia (4) Hepatic encephalopathy (5) Acute renal failure (6) Anemia Dietary Evaluation Review Comments: 1. Considering high propofol requirements, recommend EN initiation with trickle-tube feeds of Vital HP @ 15 ml/hr 2. Provide minimal free water flushes for tube patency of 30 ml Q6 hrs (120 ml total) or per MD discretion 3. Monitor BMP/lytes and replete to WNL/PRN Expected Outcomes/Goals: Improved nutritional status Plan discussed with: ABHISHEK Putnam MD Dec 18, 2024 14:10
[2024-12-18] MEDS: MEROPENEM 500MG IVPB 50 ML IV SCH (16:08)
--- NOTE | 2024-12-18 17:24 | DVH ---
EXAM: CT HEAD WITHOUT CONTRAST HISTORY: ALOC COMPARISON: CT HEAD WITHOUT CONTRAST on DOS: 12/12/24, CT HEAD WITHOUT CONTRAST on DOS: 10/14/24 TECHNIQUE: Axial images were obtained and reformatted in coronal and sagittal planes. All CT scans at this medical facility are performed using dose modulation techniques as appropriate t o a performed exam including the following: Automated exposure control was utilized; adjustment of th e MA and/or KV according to patient size; and use of iterative reconstruction technique. CT Dose: CTDI volume is 52.6 mGy. Dose-length product is 997.22 mGy*cm FINDINGS: Supratentorial Region: No evidence for large acute territorial ischemia. No intracranial hemorrhage is noted. 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 Posterior Fossa: No acute abnormality. Brainstem: Unremarkable. Sellar/Suprasellar Region: Unremarkable. Ventricles, Cisterns, Sulci: Age-appropriate. Orbits: Unremarkable. Paranasal Sinuses: Large amount of fluid in the left sphenoid sinus. Mastoid Air Cells: Unremarkable. Vasculature: Unremarkable. Bones/Soft Tissues: No acute abnormality. Other: NG tube noted. IMPRESSION: 1. No acute intracranial process. 2. Acute left maxillary sinusitis.
--- NOTE | 2024-12-18 21:59 | DVHINCON2 ---
Date of service: Dec 17, 2024 Family History: Alzheimer's disease Cerebrovascular accident (CVA) G8 SISTER G8 SISTER Allergies: Coded Allergies: NO KNOWN ALLERGIES (Unverified , 10/14/24) Home Meds Reported Medications Spironolactone (Spironolactone) 50 Mg Tab, 1 TAB PO BID, #30 TAB 5 Refills 12/13/24 Ferrous Sulfate (Ferosul) 325 Mg Tab, 325 MG PO DAILY, TAB 12/13/24 Bumetanide (Bumetanide) 2 Mg Tab, 2 MG PO BID for 30 Days, MG 12/13/24 Omeprazole (Gnp Omeprazole) 20 Mg Tab, 1 TAB PO DAILY, #90 TAB 1 Refill 12/13/24 Lactulose (Lactulose) 10 Gm/15 Ml Risa, 10 GM PO DAILY, ML 12/13/24 Sucralfate (CARAFATE) 1 Gm Tab, 1 GM OR ACHS, TAB 12/13/24 Rifaximin (Xifaxan) 550 Mg Tab, 1 TAB PO BID, #28 TAB 12/13/24 Midodrine Hcl (Midodrine Hcl) 10 Mg Tab, 10 MG PO BID, TAB 12/13/24 Current Medications Current Medications Medications (Trade) Dose Ordered Sig/Leti Route PRN Reason Start Time Stop Time Status Last Admin Potassium Chloride 50 ml @ 25 mls/hr DAILY IV 12/18/24 10:00 12/18/24 10:00 Dextrose 1,000 ml @ 75 mls/hr [id number] IV 12/18/24 09:15 12/18/24 13:57 DC 12/18/24 11:53 Meropenem 50 ml @ 17 mls/hr Q12H IV 12/18/24 11:30 12/18/24 16:08 Dextrose 1,000 ml @ 100 mls/hr Q10H IV 12/18/24 14:00 12/18/24 14:00 Vital Signs Vital Signs Date Time Temp Pulse Resp B/P (MAP) Pulse Ox O2 Delivery O2 Flow Rate FiO2 12/18/24 18:45 98.2 74 11 124/71 (88) 99 208.8 12/18/24 17:30 Nasal Cannula* 2 28 Labs/Diagnostic Data Labs Test 12/18/24 11:10 12/18/24 09:20 12/18/24 07:29 12/18/24 03:30 Range/Units Blood Gas Specimen Type Arterial Blood Gas Sample Site Right radial Blood Gas Patient Temperature 37.0 Arterial Blood Date Drawn [id number] Arterial Blood pH 7.421 7.350-7.450 Arterial Blood Partial Pressure CO2 27.9 L 32.0-45.0 mmHg Arterial Blood Partial Pressure O2 145.8 H 83.0-108.0 mmHg Arterial Blood HCO3 17.7 L 21.0-28.0 mmol/L Arterial Blood Oxygen Saturation 98.2 H 94.0-98.0 % Arterial Blood Base Excess -5.6 L -2.0-3.0 mmol/L Arterial Blood Oxyhemoglobin 97.5 94.0-98.0 % Arterial Blood Carboxyhemoglobin 0.2 L 0.5-1.5 % Arterial Blood Methemoglobin 0.5 0.0-1.5 % Shivam Test Modified Blood Gas Total Hemoglobin 10.60 L 12.0-16.0 g/dL Blood Gas Modality Cool aerosol FiO2 % 40.0 Specimen Drawn By simon knight POC Glucose 120 H 70-106 mg/dl Blood Gas Set Respiration Rate 12.0 Blood Gas Spontaneous Rate 12 Blood Gas Spontaneous Tidal Volume 397 White Blood Count 5.7 # 4.4-10.8 10^3/uL Red Blood Count 3.32 L 4.0-5.20 10^6/uL Hemoglobin 10.0 L 12.2-16.2 g/dL Hematocrit 30.0 L 36.0-46.0 % Mean Corpuscular Volume 90.4 80.0-100.0 fL Mean Corpuscular Hemoglobin 30.0 28.0-32.0 pg Mean Corpuscular Hemoglobin Concent 33.2 32.0-36.0 g/dL Red Cell Distribution Width 27.3 H 11.8-14.3 % Platelet Count 38 L 140-450 10^3/uL Mean Platelet Volume 8.6 6.9-10.8 fL Neutrophils (%) (Auto) 92.6 H 37.0-80.0 % Lymphocytes (%) (Auto) 5.1 L 10.0-50.0 % Monocytes (%) (Auto) 2.2 0.0-12.0 % Eosinophils (%) (Auto) 0.0 0.0-7.0 % Basophils (%) (Auto) 0.1 0.0-2.0 % Neutrophils # (Auto) 5.3 1.6-8.6 10 ^3/uL Lymphocytes # (Auto) 0.3 L 0.4-5.4 10 ^3/uL Monocytes # (Auto) 0.1 0-1.3 10 ^3/uL Eosinophils # (Auto) 0 0-0.8 10 ^3/uL Basophils # (Auto) 0 0-0.2 10 ^3/uL Nucleated Red Blood Cells 0.1 % Platelet Estimate Markedly decreased Anisocytosis (manual) Marked Macrocytosis Slight Sodium Level 150 H 136-145 mmol/L Potassium Level 3.6 3.5-5.1 mmol/L Chloride Level 119 H 98-107 mmol/L Carbon Dioxide Level 20 20-31 mmol/L Anion Gap 11 5-15 Blood Urea Nitrogen 57 H 9-23 mg/dL Creatinine 2.93 H 0.550-1.02 mg/dL Glomerular Filtration Rate Calc 16 >90 mL/min BUN/Creatinine Ratio 19.5 10.0-20.0 Serum Glucose 125 H 74-106 mg/dL Calcium Level 9.2 8.7-10.4 mg/dL Magnesium Level 2.3 1.6-2.6 mg/dL Test 12/17/24 20:43 12/17/24 20:40 12/17/24 13:26 12/17/24 06:38 Range/Units Ammonia < 10 L 11-32 umol/L Blood Gas EPAP 7 Blood Gas IPAP 12 Blood Gas Inspiratory Pressure 15.0 Blood Gas Pressure Support 8 Blood Gas PEEP or CPAP 5.0 Bl Gas Inspiratory/Expiratory Ratio 1:4.1 Blood Gas Tidal Volume 400.0 Test 12/17/24 03:00 12/16/24 03:00 12/15/24 02:53 12/14/24 11:21 Range/Units Differential Total Cells Counted 100.0 100 Neutrophils % (Manual) 80 37.0-80.0 Band Neutrophils % (Manual) 3 Lymphocytes % (Manual) 13 10.0-50.0 Monocytes % (Manual) 4 0-12 Eosinophils % (Manual) 0 0-7 Basophils % (Manual) 0 0.0-2.0 Metamyelocytes % (manual) 0 Myelocytes % (Manual) 0 Promyelocytes % (Manual) 0 Blast Cells % (Manual) 0 Reactive Lymphocytes 0 Large Platelets Few Tear Drop Cells Few Praful Cells Few Total Bilirubin 0.6 0.2-1.0 mg/dL Aspartate Amino Transferase (AST) 14 13-40 U/L Alanine Aminotransferase (ALT) 17 7-40 U/L Alkaline Phosphatase 48 46-116 U/L Total Protein 4.6 L 5.7-8.2 g/dL Albumin 3.0 L 3.2-4.8 g/dL Schistocytes Few Ferritin 422.7 H 10-291 ng/mL Anti-Nuclear Antibody Screen Negative Negative Blood Gas Critical Value Read Back Yes Test 12/14/24 10:10 12/13/24 16:43 12/13/24 11:57 12/13/24 10:15 Range/Units Prothrombin Time 12.4 H 9.3-11.8 sec Prothrombin Time INR 1.19 H 0.9-1.15 Activated Partial Thromboplast Time 44.1 H 24.5-34.5 SEC Stool Occult Blood Positive Negative Stool Occult Blood Sample #3 Negative Parathyroid Hormone (Intact) 140.8 H 18.4-80.1 pg/mL Body Fluid Source Peritoneal fluid Body Fluid pH 8.0 Body Fluid WBC (Manual) 29 0-200 CUMM Body Fluid RBC (Manual) 127 0-2000 CUMM Body Fluid Mononuclear Cells 95 % Body Fluid Polymorphonuclear Cells 5 0-25 % Body Fluid Glucose 83 . mg/dL Body Fluid Total Protein 0.7 . g/dL Body Fluid Lactate Dehydrogenase 51 . IU/L Test 12/13/24 06:00 12/13/24 04:10 12/13/24 04:08 12/12/24 21:50 Range/Units Urine Color Yellow Yellow Urine Clarity Turbid H Clear Urine pH 5.5 5.0-9.0 Urine Specific [place] 1.016 1.001-1.035 Urine Protein Trace H Negative Urine Ketones Negative Negative Urine Blood Trace H Negative /uL Urine Nitrite Negative Negative Urine Bilirubin Negative Negative Urine Urobilinogen Normal Negative mg/dL Urine Leukocyte Esterase 3+ Negative /uL Urine RBC 2 0 - 4 /hpf Urine WBC Clumps Present None Seen /hpf Urine Microscopic WBC 177 H 0-5 /HPF Urine Squamous Epithelial Cells Few <5 /hpf Urine Bacteria Many H None Seen /hpf Urine Hyaline Casts Few 0 - 2 /lpf Urine Mucus Few None Seen Urine Creatinine 134.12 H 30.0-125.0 mg/dL Urine Protein/Creatinine Ratio 0.21 Urine Sodium < 10 L 40-220 mmol/L Urine Glucose Normal Normal mg/dL Urine Total Protein 27.9 H 1-14 mg/dL Blood Gas Liter Flow 2.00 Ovalocytes Few Phosphorus Level 3.7 2.4-5.1 mg/dL Vitamin D 25-Hydroxy 41.3 30.0-100 ng/mL Hepatitis B Surface Antigen Negative Negative Hepatitis C Antibody Negative Negative Lactic Acid Level 2.1 *H 0.4-2.0 mmol/L Microbiology Date/Time Source Procedure Growth Status 12/16/24 18:17 Bronchial Washings Gram Stain - Final Complete 12/16/24 18:17 Respiratory Culture - Final Escherichia coli - ESBL Complete 12/13/24 12:54 Nose MRSA Screen - Final Complete 12/13/24 10:15 Ascities Fluid Gram Stain - Final Complete 12/13/24 10:15 Ascities Fluid Body Fluid Culture - Final Complete 12/13/24 06:00 Urine - [place] Urine Culture - Final Escherichia coli Complete 12/12/24 20:00 Blood Blood Culture - Final NO GROWTH AFTER 5 DAYS OF INCUBATION. Complete Problems(with codes): (1) Sputum culture positive for ESBL E. coli (2) Pneumonia (3) Hypotension (4) Pancytopenia (5) Liver cirrhosis (6) Ascites Plan/Recommendation ASSESSMENT AND PLAN: ID Problem List: - Decompensated liver cirrhosis - Hepatic encephalopathy - Esophageal varices - ESBL E. coli pneumonia - E. coli UTI - Acute hypoxic respiratory failure - Septic shock - GER vs. CKD - Thrombocytopenia - Anemia - Diabetes mellitus - Diarrhea - Altered mental status - Anasarca Assessment This is a 74 y.o. female with a past medical history of liver cirrhosis and diabetes mellitus, who presents with bloody vomiting and altered mental status. Patient was only alert to her name upon admission with an elevated ammonia level of 197. She exhibited large volume ascites, anemia (Hb 9.6), thrombocytopenia (platelets 75), and leukopenia (WBC 2.7). Imaging revealed a cirrhotic liver with large volume ascites, esophageal varices, and evidence of pneumonia. She underwent upper endoscopy revealing trace distal esophageal varices without stigmata of bleeding, moderate to severe gastropathy and gastritis with multiple areas of oozing, and removal of gastric polyps via hot snare polypectomy. BAL cultures are growing ESBL E. coli sensitive to ertapenem, gentamicin, meropenem, and Zosyn; resistant to cefepime. Plan: - Agree with switch to meropenem; continue meropenem for treatment of pneumonia for a total of 7-10 days. - Monitor renal function; defer management of GER to nephrology. - Continue aspiration precautions; keep patient upright at 30 degrees. - Follow up on blood cultures; low concern for SBP at this time. - Provide pressor support as needed to maintain MAP >65 mmHg. - Fluid restriction due to liver cirrhosis and recurrent ascites. - Defer management of hepatic encephalopathy to GI team and primary care team. - Monitor electrolyte levels; sodium is slowly rising. - Continue rifaximin for hepatic encephalopathy. - Monitor for signs of recurrent pneumonia; repeat sputum cultures and chest X- ray if needed. Authorized and Performed by: Anai Ureña Total critical care time: Approximately 76 minutes Due to a high probability of clinically significant, life threatening deteri oration, the patient required my highest level of preparedness to intervene emergently and I personally spent this critical care time directly and personally managing the patient. This critical care time included obtaining a history; examining the patient; pulse oximetry; ordering and review of studies; arranging urgent treatment with development of a management plan; evaluation of patient's response to treatment; frequent reassessment; and, discussions with other providers. This critical care time was performed to assess and manage the high probability of imminent, life-threatening deterioration that could result in multi-organ gildardo lure. It was exclusive of separately billable procedures and treating other patients and teaching time. Isolation Precautions: contact ESBL Assessment and plan was discussed with the patient as written above Plan is subject to change pending incorporation of new incoming information/diagnostics. Updates may be added as addendum at the bottom (OR TOP) of this note Thank you for interesting consult. ID will continue to follow. Please contact Infectious Disease for any questions or concerns. Anai Ureña M.D. [facility] Ph: ? History: The patient's chart and medications were reviewed in detail, and the patient was seen and examined. History obtained from: chart (patient is unable to provide history due to altered mental status) Cyndee Marcos is a 74 y.o. female with a past medical history of liver cirrhosis and diabetes mellitus, who presents with bloody vomiting and altered mental status. She was found with an elevated ammonia level of 197, large volume ascites, anemia, thrombocytopenia, and renal insufficiency. Review of Systems: Unable to obtain a review of systems due to the patient's altered mental status. Past Medical History: Diagnosis Date Liver cirrhosis Diabetes mellitus Past Surgical History: History reviewed. No pertinent surgical history. Home Medications: Medication list not available. Allergies: No Known Allergies Family History: Family history not available. Social History: Social history not available due to patient's inability to provide information. Objective: Vital Signs on Arrival: Temp: 36.9 C (98.6 F) BP: 104/64 Pulse: 80 Resp: 14 SpO2: 99% on room air Most Recent Vital Signs: Temp: 36.9 C (98.6 F) BP: 104/64 Pulse: 80 Resp: 14 SpO2: 99% on room air Admission Weight: Weight not available BMI: Not available. Physical Exam: General: Patient is obtunded, only responsive to name. Neck: Supple. No masses. HEENT: PERRL. Normal lids and conjunctiva. Moist mucous membranes. Oropharynx without lesions, exudates or excessive erythema. Normal appearance of the external aspects of the nose and ears. Heart: Regular rhythm, normal rate. No murmur. No lower extremity edema. Lungs: Normal respiratory effort. Clear to auscultation bilaterally. No wheezes. No crackles. Abdomen: Distended abdomen with positive fluid wave. Msk: Diffuse edema in lower extremities. Skin: Mild jaundice, bruising on face. Neuro: Altered mental status; only alert to name. Psych: Unable to assess due to altered mental status. Oriented to person, place, time, and situation: No. Lines: Active Lines PIV Line Duration Peripheral IV Line 12/18/24 Left Upper Arm 20 gauge <1 day Diagnostic Studies: Available diagnostic studies were reviewed personally. Significant relevant results and findings are outlined below or addressed in the Assessment and Plan above. Pertinent Imaging: XR Chest - Impression: - 1. Stable pulmonary vascular congestion. - 2. Low lung volumes suggestive of pulmonary edema. - 3. Trace bilateral pleural effusions. CT Abdomen/Pelvis - Impression: - 1. Cirrhotic liver with large volume ascites. - 2. Large hiatal hernia. - 3. Mild interstitial pulmonary edema. Paracentesis fluid analysis: - WBC: 29 (mostly monocytes), not suggestive of SBP. - Culture: No growth to date. BAL Culture: - Growth of ESBL E. coli sensitive to ertapenem, gentamicin, meropenem, and Zosyn; resistant to cefepime. Plan discussed with: Patient ANAI UREÑA MD Dec 18, 2024 21:59
[2024-12-19] VITALS (101 sets, daily range): BP systolic 83–159; BP diastolic 47–100; PULSE 43–120; RESP 8–17; TEMP 93.9–100.2; O2SAT 94–100
[2024-12-19 04:15] LABS: Basophils # (auto) 0 10 ^3/uL (0-0.2); Eosinophils # (auto) 0 10 ^3/uL (0-0.8); Hemoglobin 10.2 g/dL (12.2-16.2); Lymphocytes # (auto) 0.6 10 ^3/uL (0.4-5.4); Monocytes # (auto) 0.3 10 ^3/uL (0-1.3); Neutrophils # (auto) 4.8 10 ^3/uL (1.6-8.6); Nucleated Red Blood Cells % 0.1 %; White Blood Cell 5.7 10^3/uL (4.4-10.8)
[2024-12-19 04:17] LABS: Hematocrit 30.4 % (36.0-46.0); Lymphocytes % (auto) 9.9 % (10.0-50.0); Mean Corpuscular Hemoglobin 30.1 pg (28.0-32.0); Mean Corpuscular Hgb Conc. 33.4 g/dL (32.0-36.0); Mean Corpuscular Volume 90.1 fL (80.0-100.0); Monocytes % (auto) 5.7 % (0.0-12.0); Neutrophils % (auto) 84.4 % (37.0-80.0); Platelet Count (auto) 40 10^3/uL (140-450); Red Blood Cells 3.37 10^6/uL (4.0-5.20)
[2024-12-19 04:25] LABS: Anion Gap 11 (5-15); Calcium 9.2 mg/dL (8.7-10.4); Carbon Dioxide 22 mmol/L (20-31)
[2024-12-19 04:28] LABS: Red Cell Distribution Width 28.4 % (11.8-14.3)
[2024-12-19 04:31] LABS: BUN/Creatinine Ratio 21.5 (10.0-20.0)
[2024-12-19 04:32] LABS: Blood Urea Nitrogen 58 mg/dL (9-23); Chloride 119 mmol/L (98-107); Glucose 157 mg/dL (74-106); Sodium 152 mmol/L (136-145)
[2024-12-19] MEDS: POTASSIUM CHL 20MEQ/100ML 100 ML IV SCH (06:01)
[2024-12-19 07:55] LABS: Platelet Estimate Decreased
--- NOTE | 2024-12-19 13:58 | DVHPN2 ---
Progress Note Date Seen: Dec 19, 2024 Medical Necessity Reason Pt with a Central, PICC or Fol: Yes The following are medically ne: Waterman Catheter Reason for waterman catheter: Strict I&O Subjective Patient reports: No new complaints Review of Systems: NEURO:Abnormal Objective vital signs Vital Sign Date Time Temp Pulse Resp B/P (MAP) Pulse Ox O2 Delivery O2 Flow Rate FiO2 12/19/24 13:51 86 12/19/24 13:51 14 97 Nasal Cannula* 2 28 12/19/24 12:00 95.2 121/73 (89) 203.4 Total Intake and Output 12/18/24 12/18/24 12/19/24 15:00 23:00 07:00 Intake Total 182 ml 953.065 ml 920.904 ml Output Total 225 ml 950 ml Balance 182 ml 728.065 ml -29.096 ml medications Current Medications Medications Dose Ordered Sig/Leti Route Start Time Stop Time Status Last Admin Dose Admin Ondansetron HCl 4 mg Q4HP PRN IV 12/13/24 00:15 Nitroglycerin 0.4 mg Q5MINP PRN SL 12/13/24 00:15 Ceftriaxone Sodium 50 ml @ 100 mls/hr DAILY@2000 IV 12/13/24 20:00 Cancel Norepinephrine Bitartrate 250 ml @ 3.75 mls/hr Q24H IV 12/13/24 08:15 12/15/24 05:54 7.5 MLS/HR Vasopressin 20 units/Sodium Chloride 100 ml @ 9 mls/hr Q11H7M IV 12/13/24 16:00 12/16/24 18:32 9 MLS/HR Dopamine HCl/ Dextrose 250 ml @ 4.613 mls/ hr Q24H IV 12/14/24 10:45 12/19/24 04:32 4.613 MLS/HR Diagnostic Test (Pha) 1 strip BID 12/15/24 22:00 12/19/24 10:25 1 STRIP Pantoprazole Sodium 40 mg BID IV 12/16/24 22:00 12/19/24 10:25 40 MG Lactulose 30 ml Q8H NG 12/16/24 22:00 12/19/24 05:20 30 ML Dexmedetomidine HCl 400 mcg/ Dextrose 100 ml @ 3.065 mls/ hr Q24H IV 12/17/24 07:30 12/17/24 08:44 3.065 MLS/HR Potassium Chloride 50 ml @ 25 mls/hr DAILY IV 12/18/24 10:00 12/18/24 10:00 25 MLS/HR Flumazenil 0.2 mg ONCE STAT IV 12/17/24 20:22 12/17/24 20:23 Cancel Meropenem 50 ml @ 17 mls/hr Q12H IV 12/18/24 11:30 12/19/24 10:41 17 MLS/HR Dextrose 1,000 ml @ 100 mls/hr Q10H IV 12/18/24 14:00 12/19/24 05:39 100 MLS/HR Examination: GENERAL:Abnormal, LUNGS:Abnormal, ABDOMEN:Abnormal, SKIN:Abnormal, NEURO:Abnormal laboratory and microbiology Laboratory Tests 12/19/24 03:47 Test 12/19/24 03:47 Range/Units Serum Glucose 157 H 74-106 mg/dL Microbiology Date/Time Source Procedure Growth Status 12/16/24 18:17 Bronchial Washings Gram Stain - Final Complete 12/16/24 18:17 Respiratory Culture - Final Escherichia coli - ESBL Complete 12/13/24 12:54 Nose MRSA Screen - Final Complete 12/13/24 10:15 Ascities Fluid Gram Stain - Final Complete 12/13/24 10:15 Ascities Fluid Body Fluid Culture - Final Complete 12/13/24 06:00 Urine - Waterman Port Urine Culture - Final Escherichia coli Complete 12/12/24 20:00 Blood Blood Culture - Final NO GROWTH AFTER 5 DAYS OF INCUBATION. Complete Problem List/Assessment/Plan Problem List/Assessment/Plan Acute kidney injury superimposed Chronic Kidney Disease secondary hemodynamic mediated, FeNa < 1% Hepatorenal syndrome Acute respiratory failure, intubated on ventilator Hepatic encephalopathy Urinary tract infection GI bleeding Liver cirrhosis Ascites Hypoalbuminemia Pancytopenia hypernatremia hypokalemia D5W for hypotonic fluids clinically has 3rd spaced fluids, resume lasix , aldactone replace potassium on lactulose daily electrolyte replacement IV albumin levophed to MAP > 65 family at bedside, explained drastic decline in functional status prior to this hospitalization Plan discussed with: Patient Dietary Evaluation Review Comments: 1. Considering high propofol requirements, recommend EN initiation with trickle-tube feeds of Vital HP @ 15 ml/hr 2. Provide minimal free water flushes for tube patency of 30 ml Q6 hrs (120 ml total) or per MD discretion 3. Monitor BMP/lytes and replete to WNL/PRN Expected Outcomes/Goals: Improved nutritional status Critical Care Time (mins): 33 DEEPA SHANKS MD Dec 19, 2024 13:58
[2024-12-19] MEDS: FUROSEMIDE 40 MG/4 ML VIAL IV ONE (14:43)
[2024-12-19] MEDS: ALBUMIN 25% 100 ML IV ONE (14:45)
--- NOTE | 2024-12-19 15:30 | DVHPN2 ---
Progress Note Date Seen: Dec 19, 2024 Resident Creating Document: PATRICIA BRITTON RESIDENT Medical Necessity Reason Pt with a Central, PICC or Fol: Yes The following are medically ne: Waterman Catheter Reason for waterman catheter: Strict I&O Subjective Review of Systems History of Present Illness Patient is 74-year-old female with known medical history of liver cirrhosis who brought to the hospital for altered mental level of consciousness. Over the night of hospitalization patient's mental status continued to be worsened, early in the morning on 12/13/2024 patient started having hematemesis and patient was intubated in ER for airway protection and started on mechanical ventilation. GI consultation has been done for GI bleed and management of liver cirrhosis. Past Medical History Liver cirrhosis, esophageal varices, end-stage liver disease with the ascites , hepatic encephalopathy Past Surgical History History of paracentesis Patient seen and examined at bedside. No other complains. On oxygen via mask. NG tube. No acute night events. No complaints of nausea, vomiting, diarrhea, any other complaints. Objective vital signs Vital Sign Date Time Temp Pulse Resp B/P (MAP) Pulse Ox O2 Delivery O2 Flow Rate FiO2 12/19/24 14:43 107/71 12/19/24 13:51 86 12/19/24 13:51 14 97 Nasal Cannula* 2 28 12/19/24 12:00 95.2 203.4 Total Intake and Output 12/18/24 12/18/24 12/19/24 15:00 23:00 07:00 Intake Total 182 ml 953.065 ml 920.904 ml Output Total 225 ml 950 ml Balance 182 ml 728.065 ml -29.096 ml medications Current Medications Medications Dose Ordered Sig/Leti Route Start Time Stop Time Status Last Admin Dose Admin Ondansetron HCl 4 mg Q4HP PRN IV 12/13/24 00:15 Nitroglycerin 0.4 mg Q5MINP PRN SL 12/13/24 00:15 Ceftriaxone Sodium 50 ml @ 100 mls/hr DAILY@2000 IV 12/13/24 20:00 Cancel Norepinephrine Bitartrate 250 ml @ 3.75 mls/hr Q24H IV 12/13/24 08:15 12/15/24 05:54 7.5 MLS/HR Vasopressin 20 units/Sodium Chloride 100 ml @ 9 mls/hr Q11H7M IV 12/13/24 16:00 12/16/24 18:32 9 MLS/HR Dopamine HCl/ Dextrose 250 ml @ 4.613 mls/ hr Q24H IV 12/14/24 10:45 12/19/24 04:32 4.613 MLS/HR Diagnostic Test (Pha) 1 strip BID 12/15/24 22:00 12/19/24 10:25 1 STRIP Pantoprazole Sodium 40 mg BID IV 12/16/24 22:00 12/19/24 10:25 40 MG Lactulose 30 ml Q8H NG 12/16/24 22:00 12/19/24 14:47 30 ML Dexmedetomidine HCl 400 mcg/ Dextrose 100 ml @ 3.065 mls/ hr Q24H IV 12/17/24 07:30 12/17/24 08:44 3.065 MLS/HR Potassium Chloride 50 ml @ 25 mls/hr DAILY IV 12/18/24 10:00 12/18/24 10:00 25 MLS/HR Flumazenil 0.2 mg ONCE STAT IV 12/17/24 20:22 12/17/24 20:23 Cancel Meropenem 50 ml @ 17 mls/hr Q12H IV 12/18/24 11:30 12/19/24 10:41 17 MLS/HR Dextrose 1,000 ml @ 100 mls/hr Q10H IV 12/18/24 14:00 12/19/24 05:39 100 MLS/HR Spironolactone 25 mg BIDD PO 12/19/24 18:00 Examination General Appearance: Intubated, sedated on mechanical ventilation. Head Exam: Normal inspection Neck Exam: Normal inspection. Non-tender. Normal alignment Pulmonary/Respiratory: Chest non-tender. Clear bilateral breath sounds Cardiovascular/Chest: Regular rate and rhythm. No murmurs. No JVD. Peripheral Pulses: 2+ Radial (R). 2+ Radial (L). 2+ Pedal (R). 2+ Pedal (L) Abdominal Exam: Abdomen is soft, nontender. Positive bowel sounds. Ankle Exam: Negative ankle edema Lower extremities: 2+ lower extremity edema, chronic venous stasis. Neuro/Mental Status: A&O x4. Coherent Thoughts/Psych: Normal thought pattern. Appropriate mood and affect. Good judgement and insight Appearance: In no acute distress Skin Exam: Normal inspection. Normal color. Warm. Dry laboratory and microbiology Laboratory Tests 12/19/24 03:47 Test 12/19/24 03:47 Range/Units Serum Glucose 157 H 74-106 mg/dL Microbiology Date/Time Source Procedure Growth Status 12/16/24 18:17 Bronchial Washings Gram Stain - Final Complete 12/16/24 18:17 Respiratory Culture - Final Escherichia coli - ESBL Complete 12/13/24 12:54 Nose MRSA Screen - Final Complete 12/13/24 10:15 Ascities Fluid Gram Stain - Final Complete 12/13/24 10:15 Ascities Fluid Body Fluid Culture - Final Complete 12/13/24 06:00 Urine - Waterman Port Urine Culture - Final Escherichia coli Complete 12/12/24 20:00 Blood Blood Culture - Final NO GROWTH AFTER 5 DAYS OF INCUBATION. Complete Problem List/Assessment/Plan Problem List/Assessment/Plan Liver cirrhosis Trace distal esophageal varices without bleeding Active upper GI bleed due to Severe gastropathy with gastritis Antral polyps of stomach Hepatic encephalopathy Esophageal variceal Moderate ascites Hypoalbuminemia Hyperammonemia Upper GI bleed Thrombocytopenia GER hemodynamically mediated UTI Plan/recommendation. Dr Foley EGD on 12/14/2024:1. Patient had trace distal esophageal varices without stigmata of bleeding from the varices 2. Patient had a moderate amount of old blood in the stomach after this was aspirated patient was noted to have underlying [id number] gastropathy and gastritis with multiple areas of oozing from the stomach lining 3. There was a 1.5-2 cm pre-pyloric inflammatory antral polyp that was oozing, it was initially biopsied and then removed completely via hot snare polypectomy 4. There were three benign-appearing gastric polyps in the body of the that were seen and removed via hot snare polypectomy 5. Otherwise normal examination up to the 2nd and 3rd part of the duodenum -continue Protonix 40 mg IV b.i.d., continue monitor H&H. -lactulose 30 mg q.6 via NG tube, ammonia is trending down, continue to monitor. -1 unit of PRBC given hemoglobin less than eight, with active GI bleed. 2 PRBC has been given yesterday. -administration IV albumin given after paracentesis: Removed fluid around 6.9 L. -IV antibiotics: Paracentesis fluid analysis showed WBC less than 200, less likely spontaneous bacterial peritonitis. -closely monitor fluid and electrolyte status, maintain map greater than 65. Can initiate vasopressor Levophed if needed. -we will continue to monitor and following up. Plan discussed with: Patient, Other (RN) Dietary Evaluation Review Comments: 1. Considering high propofol requirements, recommend EN initiation with trickle-tube feeds of Vital HP @ 15 ml/hr 2. Provide minimal free water flushes for tube patency of 30 ml Q6 hrs (120 ml total) or per MD discretion 3. Monitor BMP/lytes and replete to WNL/PRN Expected Outcomes/Goals: Improved nutritional status PATRICIA BRITTON RESIDENT Dec 19, 2024 15:30
--- NOTE | 2024-12-19 16:42 | DVHPN2 ---
Progress Note - Dictate Date Seen: Dec 19, 2024 Medical Necessity Reason Pt with a Central, PICC or Fol: Yes The following are medically ne: Waterman Catheter Reason for waterman catheter: Strict I&O Subjective Patient is alert awake but confused. Daughters at bedside. Poor oral intake. NPO. OG-tube in place. Evaluated by Nephrology received albumin and Lasix today. Urine output slightly improved. CT of the head no acute pathology. vital signs Vital Sign Date Time Temp Pulse Resp B/P (MAP) Pulse Ox O2 Delivery O2 Flow Rate FiO2 12/19/24 14:43 107/71 12/19/24 13:51 86 12/19/24 13:51 14 97 Nasal Cannula* 2 28 12/19/24 12:00 95.2 203.4 Total Intake and Output 12/18/24 12/18/24 12/19/24 15:00 23:00 07:00 Intake Total 182 ml 953.065 ml 920.904 ml Output Total 225 ml 950 ml Balance 182 ml 728.065 ml -29.096 ml medications Current Medications Medications Dose Ordered Sig/Leti Route Start Time Stop Time Status Last Admin Dose Admin Ondansetron HCl 4 mg Q4HP PRN IV 12/13/24 00:15 Nitroglycerin 0.4 mg Q5MINP PRN SL 12/13/24 00:15 Ceftriaxone Sodium 50 ml @ 100 mls/hr DAILY@2000 IV 12/13/24 20:00 Cancel Norepinephrine Bitartrate 250 ml @ 3.75 mls/hr Q24H IV 12/13/24 08:15 12/15/24 05:54 7.5 MLS/HR Dopamine HCl/ Dextrose 250 ml @ 4.613 mls/ hr Q24H IV 12/14/24 10:45 12/19/24 04:32 4.613 MLS/HR Diagnostic Test (Pha) 1 strip BID 12/15/24 22:00 12/19/24 10:25 1 STRIP Pantoprazole Sodium 40 mg BID IV 12/16/24 22:00 12/19/24 10:25 40 MG Potassium Chloride 50 ml @ 25 mls/hr DAILY IV 12/18/24 10:00 12/18/24 10:00 25 MLS/HR Flumazenil 0.2 mg ONCE STAT IV 12/17/24 20:22 12/17/24 20:23 Cancel Meropenem 50 ml @ 17 mls/hr Q12H IV 12/18/24 11:30 12/19/24 10:41 17 MLS/HR Spironolactone 25 mg BIDD PO 12/19/24 18:00 Lactulose 30 ml BID NG 12/19/24 22:00 UNV Sodium Chloride 1,000 ml @ 60 mls/hr [id number] IV 12/19/24 16:45 UNV objective Patient is comfortable lying in bed but confused. Family at bedside. Heart regular rate and rhythm S1-S2. lungs poor inspiratory without audible wheezes. abdomen soft positive bowel sounds extremities positive edema laboratory and microbiology Laboratory Tests 12/19/24 03:47 Test 12/19/24 03:47 Range/Units Serum Glucose 157 H 74-106 mg/dL Assessment/Plan Keep her NPO. Swallow eval in a.m.. Start to tube feeds given no intake via G- tube. Free water through the G-tube for hyponatremia. Continue proton pump inhibitor and supportive care and treatment for her liver and renal failure. Further clinical management per clinical course and recommendations from the hearing consultant. For now continue Waterman catheter and rectal tube till she was able to follow commands and be more awake and able to participate with some therapy prior to removal. Discussed with the nurse as well as the daughters at bedside regarding care plan. Overall prognosis remains poor. Patient appears appropriate for hospice. Problems(with codes): (1) Hepatic encephalopathy (2) Liver cirrhosis (3) Pancytopenia (4) Sputum culture positive for ESBL E. coli (5) Acute renal failure (6) Anemia Dietary Evaluation Review Comments: 1. Considering high propofol requirements, recommend EN initiation with trickle-tube feeds of Vital HP @ 15 ml/hr 2. Provide minimal free water flushes for tube patency of 30 ml Q6 hrs (120 ml total) or per MD discretion 3. Monitor BMP/lytes and replete to WNL/PRN Expected Outcomes/Goals: Improved nutritional status Plan discussed with: Other ABHISHEK FINE MD Dec 19, 2024 16:42
[2024-12-19] MEDS: ACCU-CHEK COMFORT CURVE STRIP VI SCH (17:00)
[2024-12-19] MEDS: SPIRONOLACTONE 25 MG TAB PO SCH (19:01)
[2024-12-19] MEDS: SODIUM CHLORIDE 0.9% 1,000 ML IV SCH (19:03)
--- NOTE | 2024-12-19 21:17 | DVHPN2 ---
Progress Note - Dictate Date Seen: Dec 19, 2024 Medical Necessity Reason Pt with a Central, PICC or Fol: Yes The following are medically ne: Waterman Catheter Reason for waterman catheter: Strict I&O Subjective Patient seen and examined at bedside. S/p extubation, on supplemental oxygen Overnight events reviewed. vital signs Vital Sign Date Time Temp Pulse Resp B/P (MAP) Pulse Ox O2 Delivery O2 Flow Rate FiO2 12/19/24 19:30 97.9 93 13 118/75 (89) 208.2 12/19/24 19:11 95 Nasal Cannula 2.0 12/19/24 19:11 28 Total Intake and Output 12/18/24 12/18/24 12/19/24 15:00 23:00 07:00 Intake Total 182 ml 953.065 ml 920.904 ml Output Total 225 ml 950 ml Balance 182 ml 728.065 ml -29.096 ml medications Current Medications Medications Dose Ordered Sig/Leti Route Start Time Stop Time Status Last Admin Dose Admin Ondansetron HCl 4 mg Q4HP PRN IV 12/13/24 00:15 Nitroglycerin 0.4 mg Q5MINP PRN SL 12/13/24 00:15 Ceftriaxone Sodium 50 ml @ 100 mls/hr DAILY@2000 IV 12/13/24 20:00 Cancel Norepinephrine Bitartrate 250 ml @ 3.75 mls/hr Q24H IV 12/13/24 08:15 12/15/24 05:54 7.5 MLS/HR Dopamine HCl/ Dextrose 250 ml @ 4.613 mls/ hr Q24H IV 12/14/24 10:45 12/19/24 04:32 4.613 MLS/HR Pantoprazole Sodium 40 mg BID IV 12/16/24 22:00 12/19/24 10:25 40 MG Potassium Chloride 50 ml @ 25 mls/hr DAILY IV 12/18/24 10:00 12/18/24 10:00 25 MLS/HR Flumazenil 0.2 mg ONCE STAT IV 12/17/24 20:22 12/17/24 20:23 Cancel Meropenem 50 ml @ 17 mls/hr Q12H IV 12/18/24 11:30 12/19/24 10:41 17 MLS/HR Spironolactone 25 mg BIDD PO 12/19/24 18:00 12/19/24 19:01 25 MG Lactulose 30 ml BID NG 12/19/24 22:00 Sodium Chloride 1,000 ml @ 60 mls/hr [id number] IV 12/19/24 16:45 12/19/24 19:03 60 MLS/HR Diagnostic Test (Pha) 1 strip ACHS 12/19/24 17:00 Dextrose 50 ml UD PRN IV 12/19/24 16:45 objective Gen.: Patient lying in bed in no apparent distress. On supplemental oxygen. Head: Normocephalic, atraumatic. Eyes: EOMI/PERRLA. Ears: Normal hearing. Normal anatomy. Neck/trachea: Trachea midline, supple. Nose: Normal external anatomy. Mouth: Moist mucous membranes. Chest: Decreased air entry bilaterally. No wheezing or rhonchi. Cardiovascular: Positive S1, positive S2. Regular rate and rhythm. Abdomen: Positive bowel sounds in all 4 quadrants. Soft, non-tender, non- distended. : Deferred. Rectal: Deferred. Skin: Warm, dry. Intact. Extremities: 2+ radial pulses bilaterally. No lower extremity edema. Neuro: Awake, alert, oriented x3. No gross motor or sensory deficits. Cranial nerves II through XII intact. Gait not assessed laboratory and microbiology Laboratory Tests 12/19/24 03:47 Test 12/19/24 03:47 Range/Units Serum Glucose 157 H 74-106 mg/dL Assessment/Plan Impression: Acute hypoxic respiratory failure Hepatic encephalopathy Hyperammonemia Liver cirrhosis Large volume ascites Thrombocytopenia Anemia, chronic Acute on chronic kidney disease Lactic acidosis Metabolic acidosis Events: Currently on 2 LPM NC supplemental oxygen Taper O2 as tolerated Head of bed elevation Aspiration precautions Supportive care Continue abx Follow up cultures Bronchial cultures growing ESBL E.coli Remains on Dopamine 2 mcg/min Hemoglobin stable - continue to monitor Elevated ammonia Continue lactulose. Protonix BID Diurese as tolerated w/ Lasix Monitor renal function Monitor electrolytes. Supplement as necessary. Potassium supplementation Awaiting results of chest x-ray. Status post EGD by GI GI recommendations appreciated Monitor hemoglobin Labs and imaging reviewed. Rest of plan as noted below. Plan: s/p extubation on 12/17/24 Supplemental oxygen Titrate to keep O2 sats above 92%. Off sedation Pressors as necessary for hemodynamic support. Titrate to keep MAP above 65 mmHg/SBP above 90 mmHg. Continue antibiotics. F/u cultures. On IV fluids w/ NS at 60 mL an hour Monitor renal function due to Acute kidney injury. Monitor electrolytes. Supplement as necessary. Monitor ins and outs Nephrology recommendations appreciated. Metabolic acidosis - received one ampule of bicarbonate on 12/13. Status post paracentesis, albumin given. Nutritional support. Accu-Cheks, ISS. GI/DVT prophylaxis. Condition: Critical Prognosis: Poor given multiple comorbidities. Rest of plan per hospitalist and other consultants. A total of 35 minutes of critical care time was spent reviewing the patient record, examining the patient, making a diagnostic and therapeutic plan, discussing this plan with the medical personnel, following up on diagnostic studies and following the patient for clinical stability excluding any and all procedures. At least 50% of this time was spent in direct, [id number] contact. Thank you MASSIEL Arias for allowing me to participate in this patient's care. Further recommendations will depend on patient's clinical course. Please do not hesitate to contact me if you have any questions or concerns. This medical document was created using an electronic medical record system with [employer] dictation system. Although this document has been carefully reviewed, there may still be some phonetic and typographical errors. These areas are purely typographical due to imperfections of the software programs, and do not reflect any compromise in the patient's medical care. Dietary Evaluation Review Comments: 1. Considering high propofol requirements, recommend EN initiation with trickle-tube feeds of Vital HP @ 15 ml/hr 2. Provide minimal free water flushes for tube patency of 30 ml Q6 hrs (120 ml total) or per MD discretion 3. Monitor BMP/lytes and replete to WNL/PRN Expected Outcomes/Goals: Improved nutritional status Plan discussed with: Other (GLADYS Mcneill) Critical Care Time(min): 35 SCOTT NELSON MD Dec 19, 2024 21:17
--- NOTE | 2024-12-19 21:35 | DVHPN2 ---
Consult Progress Note Date Seen: Dec 18, 2024 Subjective Patient reports: Other (remains off pressure , on 2 liters nasal canula and not bringing up much sputum , has a cough and is agitated , with a mildly distended abdomen and making a mild amount of urine and having a little diarrhea) Objective vital signs Vital Sign Date Time Temp Pulse Resp B/P (MAP) Pulse Ox O2 Delivery O2 Flow Rate FiO2 12/19/24 19:30 97.9 93 13 118/75 (89) 208.2 12/19/24 19:11 95 Nasal Cannula 2.0 12/19/24 19:11 28 Total Intake and Output 12/18/24 12/18/24 12/19/24 15:00 23:00 07:00 Intake Total 182 ml 953.065 ml 920.904 ml Output Total 225 ml 950 ml Balance 182 ml 728.065 ml -29.096 ml medications Current Medications Medications Dose Ordered Sig/Leti Route Start Time Stop Time Status Last Admin Dose Admin Ondansetron HCl 4 mg Q4HP PRN IV 12/13/24 00:15 Nitroglycerin 0.4 mg Q5MINP PRN SL 12/13/24 00:15 Ceftriaxone Sodium 50 ml @ 100 mls/hr DAILY@2000 IV 12/13/24 20:00 Cancel Norepinephrine Bitartrate 250 ml @ 3.75 mls/hr Q24H IV 12/13/24 08:15 12/15/24 05:54 7.5 MLS/HR Dopamine HCl/ Dextrose 250 ml @ 4.613 mls/ hr Q24H IV 12/14/24 10:45 12/19/24 04:32 4.613 MLS/HR Pantoprazole Sodium 40 mg BID IV 12/16/24 22:00 12/19/24 10:25 40 MG Potassium Chloride 50 ml @ 25 mls/hr DAILY IV 12/18/24 10:00 12/18/24 10:00 25 MLS/HR Flumazenil 0.2 mg ONCE STAT IV 12/17/24 20:22 12/17/24 20:23 Cancel Meropenem 50 ml @ 17 mls/hr Q12H IV 12/18/24 11:30 12/19/24 10:41 17 MLS/HR Spironolactone 25 mg BIDD PO 12/19/24 18:00 12/19/24 19:01 25 MG Lactulose 30 ml BID NG 12/19/24 22:00 Sodium Chloride 1,000 ml @ 60 mls/hr [id number] IV 12/19/24 16:45 12/19/24 19:03 60 MLS/HR Diagnostic Test (Pha) 1 strip ACHS 12/19/24 17:00 Dextrose 50 ml UD PRN IV 12/19/24 16:45 Physical Exam: General: Patient is obtunded, only responsive to name. Neck: Supple. No masses. HEENT: PERRL. Normal lids and conjunctiva. Moist mucous membranes. Oropharynx without lesions, exudates or excessive erythema. Normal appearance of the external aspects of the nose and ears. Heart: Regular rhythm, normal rate. No murmur. No lower extremity edema. Lungs: Normal respiratory effort. Clear to auscultation bilaterally. No wheezes. No crackles. Abdomen: Distended abdomen with positive fluid wave. Msk: Diffuse edema in lower extremities. Skin: Mild jaundice, bruising on face. Neuro: Altered mental status; only alert to name. Psych: Unable to assess due to altered mental status. Oriented to person, place, time, and situation: No. laboratory and microbiology Laboratory Tests 12/19/24 03:47 Test 12/19/24 03:47 Range/Units Serum Glucose 157 H 74-106 mg/dL Problem List/Assessment/Plan Problems(with codes): (1) Sputum culture positive for ESBL E. coli (2) Pneumonia (3) Hypotension (4) Thrombocytopenia (5) Pancytopenia (6) Liver cirrhosis (7) Ascites Problem List/Assessment/Plan ID Problem List: - Decompensated liver cirrhosis - Hepatic encephalopathy - Esophageal varices - ESBL E. coli pneumonia - E. coli UTI - Acute hypoxic respiratory failure - Septic shock - GER vs. CKD - Thrombocytopenia - Anemia - Diabetes mellitus - Diarrhea - Altered mental status - Anasarca Assessment This is a 74 y.o. female with a past medical history of liver cirrhosis and diabetes mellitus, who presents with bloody vomiting and altered mental status. Patient was only alert to her name upon admission with an elevated ammonia level of 197. She exhibited large volume ascites, anemia (Hb 9.6), thrombocytopenia (platelets 75), and leukopenia (WBC 2.7). Imaging revealed a cirrhotic liver with large volume ascites, esophageal varices, and evidence of pneumonia. She underwent upper endoscopy revealing trace distal esophageal varices without stigmata of bleeding, moderate to severe gastropathy and gastritis with multiple areas of oozing, and removal of gastric polyps via hot snare polypectomy. BAL cultures are growing ESBL E. coli sensitive to ertapenem, gentamicin, meropenem, and Zosyn; resistant to cefepime. 12/18: sodium is 150 , BUN is 59 which is likely contributing to patients altered mental status Plan: - Agree with switch to meropenem; continue meropenem for treatment of pneumonia for a total of 7-10 days. - Monitor renal function; defer management of GER to nephrology. - Continue aspiration precautions; keep patient upright at 30 degrees. - Follow up on blood cultures; low concern for SBP at this time. - Provide pressor support as needed to maintain MAP >65 mmHg. - Fluid restriction due to liver cirrhosis and recurrent ascites. - Defer management of hepatic encephalopathy to GI team and primary care team. - Monitor electrolyte levels; sodium is slowly rising. - Continue rifaximin for hepatic encephalopathy. - Monitor for signs of recurrent pneumonia; repeat sputum cultures and chest X- ray if needed. Authorized and Performed by: Anai Ureña Total critical care time: Approximately 76 minutes Due to a high probability of clinically significant, life threatening deterioration, the patient required my highest level of preparedness to intervene emergently and I personally spent this critical care time directly and personally managing the patient. This critical care time included obtaining a history; examining the patient; pulse oximetry; ordering and review of studies; arranging urgent treatment with development of a management plan; evaluation of patient's response to treatment; frequent reassessment; and, discussions with other providers. This critical care time was performed to assess and manage the high probability of imminent, life-threatening deterioration that could result in multi-organ failure. It was exclusive of separately billable procedures and treating other patients and teaching time. Isolation Precautions: contact ESBL Plan discussed with: Other Dietary Evaluation Review Comments: 1. Considering high propofol requirements, recommend EN initiation with trickle-tube feeds of Vital HP @ 15 ml/hr 2. Provide minimal free water flushes for tube patency of 30 ml Q6 hrs (120 ml total) or per MD discretion 3. Monitor BMP/lytes and replete to WNL/PRN Expected Outcomes/Goals: Improved nutritional status ANAI UREÑA MD Dec 19, 2024 21:35
[2024-12-19] MEDS: FREE WATER GT SCH (22:00)
[2024-12-19] MEDS: LACTULOSE 20Gm/30ML SOLN NG SCH (22:21)
[2024-12-19 22:44] LABS: Anion Gap 13 (5-15); Carbon Dioxide 21 mmol/L (20-31)
[2024-12-19 22:45] LABS: Calcium 9.5 mg/dL (8.7-10.4)
[2024-12-19 22:51] LABS: Blood Urea Nitrogen 56 mg/dL (9-23); Chloride 119 mmol/L (98-107); Glucose 72 mg/dL (74-106); Potassium 2.9 mmol/L (3.5-5.1); Sodium 153 mmol/L (136-145)
[2024-12-19] MEDS: POTASSIUM CHLORIDE 40 MEQ, LIDOCAINE 1% (LOCAL ANESTH.) 4 ML in SODIUM CHL 0.9% 250 ML IV ONE (23:17)
[2024-12-20] VITALS (96 sets, daily range): BP systolic 71–145; BP diastolic 40–92; PULSE 62–112; RESP 9–26; TEMP 95.5–99.1; O2SAT 81–100
--- NOTE | 2024-12-20 01:35 | DVH ---
CHEST RADIOGRAPH Indication: NGT Placement Confirmation. Technique: Single frontal view of the chest was obtained COMPARISON: XY CHEST XRAY 1 VIEW on DOS: 12/17/24, XY CHEST XRAY 1 VIEW on DOS: 12/16/24, XY CHEST PORT ABLE on DOS: 12/15/24, XY CHEST XRAY 1 VIEW on DOS: 12/14/24, XY CHEST PORTABLE on DOS: 12/14/24 FINDINGS/IMPRESSION: Lines and Tubes: NG tube extends below the diaphragm and is coiled in the gastric fundus. Lungs / Pleura: Wprwi-gl-wkbindfl-sized bilateral pleural effusions and associated bibasilar atelecta sis/consolidation. No evidence of pulmonary edema. Cardiomediastinal contours: Mild cardiomegaly. Hiatal hernia again noted.
--- NOTE | 2024-12-20 02:27 | DVH ---
Procedure: CT CHEST WITHOUT CONTRAST Reason for study/Clinical History: evaluate for pleural effusion, empyema Comparison Study: None available at time of dictation. Exam Date: 12/19/2024 05:48 PM TECHNIQUE: Multidetector CT of the chest was performed from the lung apices to the upper abdomen with out the use of intravenous contract. Axial, coronal and sagittal multiplanar reformats were performed . Radiation Dose Information: CT Dose: CTDI volume is 5.48 mGy. Dose-length product is 153.38 mGy*cm The dose indicators for CT are the volume Computed Tomography (CT) Dose Index (CTDIvol) and the Dose Length Product (DLP), and are measured in units of mGy and mGy-cm, respectively. These indicators are not patient dose, but values generated from the CT scanner acquisition factors. The report includes radiation exposure data for exposures received during this examination. Radiation optimization: All C T scans at this facility use at least one of these dose optimization techniques: automated exposure c ontrol mA and/or kV adjustment per patient size (includes targeted exams where dose is matched to cl inical indication) or iterative reconstruction. FINDINGS: The airway appears patent. Enteric tube tip within the stomach. There are coronary artery calcificati ons and cardiomegaly. Small somewhat loculated appearing bilateral pleural effusions with bibasilar c onsolidation. Lungs appear otherwise clear. Visualized portions of the abdomen demonstrate large volume ascites. The liver appears shrunken in c ontour. No suspicious osseous lesion. IMPRESSION: 1. Bilateral small likely loculated pleural effusions with lower lobe consolidation, likely infectiou s over atelectasis. 2. Cirrhotic appearance of the liver with large volume intra-abdominal ascites.
[2024-12-20 03:52] LABS: Hemoglobin 10.1 g/dL (12.2-16.2); Mean Corpuscular Hemoglobin 29.6 pg (28.0-32.0); Mean Corpuscular Hgb Conc. 32.4 g/dL (32.0-36.0); Mean Corpuscular Volume 91.5 fL (80.0-100.0); Red Blood Cells 3.39 10^6/uL (4.0-5.20); White Blood Cell 4.1 10^3/uL (4.4-10.8)
[2024-12-20 03:56] LABS: Platelet Count (auto) 40 10^3/uL (140-450)
[2024-12-20 04:08] LABS: Anion Gap 10 (5-15); Carbon Dioxide 21 mmol/L (20-31)
[2024-12-20 04:10] LABS: Red Cell Distribution Width 28.4 % (11.8-14.3)
[2024-12-20 04:11] LABS: Band Neutrophils % (manual) 0; Basophils % (manual) 0 (0.0-2.0); Blast Cells 0; Eosinophils % (manual) 0 (0-7); Metamyelocytes % 0; Myelocytes % 0; Promyelocytes % 0; Reactive Lymphocytes 0
[2024-12-20 04:14] LABS: BUN/Creatinine Ratio 21.9 (10.0-20.0); Magnesium 2.1 mg/dL (1.6-2.6)
[2024-12-20 04:32] LABS: Blood Urea Nitrogen 54 mg/dL (9-23); Chloride 122 mmol/L (98-107); Glucose 69 mg/dL (74-106); Potassium 3.4 mmol/L (3.5-5.1); Sodium 153 mmol/L (136-145)
[2024-12-20 05:35] LABS: Anisocytosis Moderate; Lymphocytes % (manual) 15 (10.0-50.0); Monocytes % (manual) 5 (0-12); Platelet Estimate Decreased; Target Cell FEW
[2024-12-20] MEDS: DEXTROSE (50%) 50ML SYRG IV PRN (05:39)
[2024-12-20] MEDS ORDERED: D5W 5% 1,000 ML IV SCH (10:00)
[2024-12-20] MEDS: POTASSIUM CHL 20MEQ/100ML 100 ML IV SCH (11:17)
--- NOTE | 2024-12-20 14:37 | DVHPN2 ---
Progress Note - Dictate Date Seen: Dec 20, 2024 Medical Necessity Reason Pt with a Central, PICC or Fol: Yes The following are medically ne: Waterman Catheter Reason for waterman catheter: Strict I&O Subjective Patient is alert awake but confused. Daughters at bedside. Poor oral intake. On dopamine drip. Receiving free water through OG tube. vital signs Vital Sign Date Time Temp Pulse Resp B/P (MAP) Pulse Ox O2 Delivery O2 Flow Rate FiO2 12/20/24 14:15 78 12/20/24 14:15 12 98 Nasal Cannula* 2 28 12/20/24 13:06 130/77 12/20/24 12:30 97.7 97.7 Total Intake and Output 12/19/24 12/19/24 12/20/24 15:00 23:00 07:00 Intake Total 237.8 ml 343.865 ml 1087.904 ml Output Total 825 ml 1300 ml Balance 237.8 ml -481.135 ml -212.096 ml medications Current Medications Medications Dose Ordered Sig/Leti Route Start Time Stop Time Status Last Admin Dose Admin Ondansetron HCl 4 mg Q4HP PRN IV 12/13/24 00:15 Nitroglycerin 0.4 mg Q5MINP PRN SL 12/13/24 00:15 Ceftriaxone Sodium 50 ml @ 100 mls/hr DAILY@2000 IV 12/13/24 20:00 Cancel Norepinephrine Bitartrate 250 ml @ 3.75 mls/hr Q24H IV 12/13/24 08:15 12/15/24 05:54 7.5 MLS/HR Dopamine HCl/ Dextrose 250 ml @ 4.613 mls/ hr Q24H IV 12/14/24 10:45 12/20/24 13:06 4.613 MLS/HR Pantoprazole Sodium 40 mg BID IV 12/16/24 22:00 12/20/24 10:24 40 MG Flumazenil 0.2 mg ONCE STAT IV 12/17/24 20:22 12/17/24 20:23 Cancel Meropenem 50 ml @ 17 mls/hr Q12H IV 12/18/24 11:30 12/20/24 10:25 17 MLS/HR Spironolactone 25 mg BIDD PO 12/19/24 18:00 12/20/24 05:18 25 MG Lactulose 30 ml BID NG 12/19/24 22:00 12/20/24 10:24 30 ML Diagnostic Test (Pha) 1 strip ACHS 12/19/24 17:00 12/20/24 12:14 1 STRIP Dextrose 50 ml UD PRN IV 12/19/24 16:45 12/20/24 05:39 50 ML Purified Water 200 ml Q4HR GT 12/19/24 22:00 12/20/24 10:25 200 ML Dextrose 1,000 ml @ 50 mls/hr Q20H IV 12/20/24 10:00 Cancel Potassium Chloride 100 ml @ 100 mls/hr DAILY@1100 IV 12/20/24 11:00 12/20/24 11:17 100 MLS/HR Enteral Nutritional Formula 1,000 ml 50ML/HR GT 12/20/24 12:30 objective Patient is comfortable lying in bed but confused. Family at bedside. Heart regular rate and rhythm S1-S2. lungs poor inspiratory without audible wheezes. abdomen soft positive bowel sounds extremities positive edema laboratory and microbiology Laboratory Tests 12/20/24 03:15 Test 12/20/24 03:15 Range/Units Serum Glucose 69 L 74-106 mg/dL Assessment/Plan Keep her NPO. Still not fully awake for swallow eval. Continue nutrition through the G-tube. Continue free water. Continue dopamine. She can be downgraded to step-down unit. Discussed with the nurse at bedside. Continue rest of supportive care and treatment as she is on and further clinical management per clinical course. We will consider repeat paracentesis once patient is more fully awake and kidney function improves. Incoming hospitalist Dr. Jerome we will take over care and follow as appropriate. Problems(with codes): (1) Sputum culture positive for ESBL E. coli (2) Pneumonia (3) Pancytopenia (4) Liver cirrhosis (5) Ascites (6) Hepatic encephalopathy (7) Acute renal failure Dietary Evaluation Review Comments: 1. Considering high propofol requirements, recommend EN initiation with trickle-tube feeds of Vital HP @ 15 ml/hr 2. Provide minimal free water flushes for tube patency of 30 ml Q6 hrs (120 ml total) or per MD discretion 3. Monitor BMP/lytes and replete to WNL/PRN Expected Outcomes/Goals: Improved nutritional status Plan discussed with: Other ABHISHEK FINE MD Dec 20, 2024 14:37
--- NOTE | 2024-12-20 14:43 | DVHPN2 ---
Progress Note Date Seen: Dec 20, 2024 Resident Creating Document: PATRICIA BRITTON RESIDENT Medical Necessity Reason Pt with a Central, PICC or Fol: Yes The following are medically ne: Waterman Catheter Reason for waterman catheter: Strict I&O Subjective Review of Systems Patient is 74-year-old female with known medical history of liver cirrhosis who brought to the hospital for altered mental level of consciousness. Over the night of hospitalization patient's mental status continued to be worsened, early in the morning on 12/13/2024 patient started having hematemesis and patient was intubated in ER for airway protection and started on mechanical ventilation. GI consultation has been done for GI bleed and management of liver cirrhosis. Past Medical History Liver cirrhosis, esophageal varices, end-stage liver disease with the ascites , hepatic encephalopathy Past Surgical History History of paracentesis Patient seen and examined at bedside. No other complains. Swallow eval pending, Not following command, start feeding via NG tube Objective vital signs Vital Sign Date Time Temp Pulse Resp B/P (MAP) Pulse Ox O2 Delivery O2 Flow Rate FiO2 12/20/24 14:15 78 12/20/24 14:15 12 98 Nasal Cannula* 2 28 12/20/24 13:06 130/77 12/20/24 12:30 97.7 97.7 Total Intake and Output 12/19/24 12/19/24 12/20/24 15:00 23:00 07:00 Intake Total 237.8 ml 343.865 ml 1087.904 ml Output Total 825 ml 1300 ml Balance 237.8 ml -481.135 ml -212.096 ml medications Current Medications Medications Dose Ordered Sig/Leti Route Start Time Stop Time Status Last Admin Dose Admin Ondansetron HCl 4 mg Q4HP PRN IV 12/13/24 00:15 Nitroglycerin 0.4 mg Q5MINP PRN SL 12/13/24 00:15 Ceftriaxone Sodium 50 ml @ 100 mls/hr DAILY@1999 IV 12/13/24 20:00 Cancel Norepinephrine Bitartrate 250 ml @ 3.75 mls/hr Q24H IV 12/13/24 08:15 12/15/24 05:54 7.5 MLS/HR Dopamine HCl/ Dextrose 250 ml @ 4.613 mls/ hr Q24H IV 12/14/24 10:45 12/20/24 13:06 4.613 MLS/HR Pantoprazole Sodium 40 mg BID IV 12/16/24 22:00 12/20/24 10:24 40 MG Flumazenil 0.2 mg ONCE STAT IV 12/17/24 20:22 12/17/24 20:23 Cancel Meropenem 50 ml @ 17 mls/hr Q12H IV 12/18/24 11:30 12/20/24 10:25 17 MLS/HR Spironolactone 25 mg BIDD PO 12/19/24 18:00 12/20/24 05:18 25 MG Lactulose 30 ml BID NG 12/19/24 22:00 12/20/24 10:24 30 ML Diagnostic Test (Pha) 1 strip ACHS 12/19/24 17:00 12/20/24 12:14 1 STRIP Dextrose 50 ml UD PRN IV 12/19/24 16:45 12/20/24 05:39 50 ML Purified Water 200 ml Q4HR GT 12/19/24 22:00 12/20/24 10:25 200 ML Dextrose 1,000 ml @ 50 mls/hr Q20H IV 12/20/24 10:00 Cancel Potassium Chloride 100 ml @ 100 mls/hr DAILY@1100 IV 12/20/24 11:00 12/20/24 11:17 100 MLS/HR Enteral Nutritional Formula 1,000 ml 50ML/HR GT 12/20/24 12:30 Examination General Appearance: Intubated, sedated on mechanical ventilation. Head Exam: Normal inspection Neck Exam: Normal inspection. Non-tender. Normal alignment Pulmonary/Respiratory: Chest non-tender. Clear bilateral breath sounds Cardiovascular/Chest: Regular rate and rhythm. No murmurs. No JVD. Peripheral Pulses: 2+ Radial (R). 2+ Radial (L). 2+ Pedal (R). 2+ Pedal (L) Abdominal Exam: Abdomen is soft, nontender. Positive bowel sounds. Ankle Exam: Negative ankle edema Lower extremities: 2+ lower extremity edema, chronic venous stasis. Neuro/Mental Status: A&O x4. Coherent Thoughts/Psych: Normal thought pattern. Appropriate mood and affect. Good judgement and insight Appearance: In no acute distress Skin Exam: Normal inspection. Normal color. Warm. Dry laboratory and microbiology Laboratory Tests 12/20/24 03:15 Test 12/20/24 03:15 Range/Units Serum Glucose 69 L 74-106 mg/dL Microbiology Date/Time Source Procedure Growth Status 12/16/24 18:17 Bronchial Washings Gram Stain - Final Complete 12/16/24 18:17 Respiratory Culture - Final Escherichia coli - ESBL Complete 12/13/24 12:54 Nose MRSA Screen - Final Complete 12/13/24 10:15 Ascities Fluid Gram Stain - Final Complete 12/13/24 10:15 Ascities Fluid Body Fluid Culture - Final Complete 12/13/24 06:00 Urine - Waterman Port Urine Culture - Final Escherichia coli Complete 12/12/24 20:00 Blood Blood Culture - Final NO GROWTH AFTER 5 DAYS OF INCUBATION. Complete Problem List/Assessment/Plan Problem List/Assessment/Plan Liver cirrhosis Trace distal esophageal varices without bleeding Active upper GI bleed due to Severe gastropathy with gastritis Antral polyps of stomach Hepatic encephalopathy Esophageal variceal Moderate ascites Hypoalbuminemia Hyperammonemia Upper GI bleed Thrombocytopenia GER hemodynamically mediated UTI Plan/recommendation. Dr Foley EGD on 12/14/2024:1. Patient had trace distal esophageal varices without stigmata of bleeding from the varices 2. Patient had a moderate amount of old blood in the stomach after this was aspirated patient was noted to have underlying [id number] gastropathy and gastritis with multiple areas of oozing from the stomach lining 3. There was a 1.5-2 cm pre-pyloric inflammatory antral polyp that was oozing, it was initially biopsied and then removed completely via hot snare polypectomy 4. There were three benign-appearing gastric polyps in the body of the that were seen and removed via hot snare polypectomy 5. Otherwise normal examination up to the 2nd and 3rd part of the duodenum Feeding via NG tube while pending for swallow eval, Vital AF 10 ml/hr, traget 50 ml/hr -continue Protonix 40 mg IV b.i.d., continue monitor H&H. -lactulose 30 mg q.6 via NG tube, ammonia is trending down, continue to monitor. -1 unit of PRBC given hemoglobin less than eight, with active GI bleed. 2 PRBC has been given yesterday. -administration IV albumin given after paracentesis: Removed fluid around 6.9 L. -IV antibiotics: Paracentesis fluid analysis showed WBC less than 200, less likely spontaneous bacterial peritonitis. -closely monitor fluid and electrolyte status, maintain map greater than 65. Can initiate vasopressor Levophed if needed. -we will continue to monitor and following up. Plan discussed with: Patient, Other (RN) My Orders My Orders Orders - PATRICIA BRITTON Procedure Category Date Status Time Nutritional PHA 12/20/24 In Process Supplements (Vital Af 12:30 Dietary Evaluation Review Comments: 1. Considering high propofol requirements, recommend EN initiation with trickle-tube feeds of Vital HP @ 15 ml/hr 2. Provide minimal free water flushes for tube patency of 30 ml Q6 hrs (120 ml total) or per MD discretion 3. Monitor BMP/lytes and replete to WNL/PRN Expected Outcomes/Goals: Improved nutritional status PATRICIA BRITTON RESIDENT Dec 20, 2024 14:43
--- NOTE | 2024-12-20 17:20 | DVHPN2 ---
Progress Note Date Seen: Dec 20, 2024 Medical Necessity Reason Pt with a Central, PICC or Fol: Yes The following are medically ne: Waterman Catheter Reason for waterman catheter: Strict I&O Subjective Patient reports: Other Review of Systems: Deferred Objective vital signs Vital Sign Date Time Temp Pulse Resp B/P (MAP) Pulse Ox O2 Delivery O2 Flow Rate FiO2 12/20/24 16:30 73 12 112/70 (84) 98 12/20/24 16:00 Nasal Cannula* 2 28 12/20/24 15:30 97.0 97.0 Total Intake and Output 12/19/24 12/19/24 12/20/24 15:00 23:00 07:00 Intake Total 237.8 ml 343.865 ml 1087.904 ml Output Total 825 ml 1300 ml Balance 237.8 ml -481.135 ml -212.096 ml medications Current Medications Medications Dose Ordered Sig/Ltei Route Start Time Stop Time Status Last Admin Dose Admin Ondansetron HCl 4 mg Q4HP PRN IV 12/13/24 00:15 Nitroglycerin 0.4 mg Q5MINP PRN SL 12/13/24 00:15 Ceftriaxone Sodium 50 ml @ 100 mls/hr DAILY@2000 IV 12/13/24 20:00 Cancel Norepinephrine Bitartrate 250 ml @ 3.75 mls/hr Q24H IV 12/13/24 08:15 12/15/24 05:54 7.5 MLS/HR Dopamine HCl/ Dextrose 250 ml @ 4.613 mls/ hr Q24H IV 12/14/24 10:45 12/20/24 13:06 4.613 MLS/HR Pantoprazole Sodium 40 mg BID IV 12/16/24 22:00 12/20/24 10:24 40 MG Flumazenil 0.2 mg ONCE STAT IV 12/17/24 20:22 12/17/24 20:23 Cancel Meropenem 50 ml @ 17 mls/hr Q12H IV 12/18/24 11:30 12/20/24 10:25 17 MLS/HR Spironolactone 25 mg BIDD PO 12/19/24 18:00 12/20/24 05:18 25 MG Lactulose 30 ml BID NG 12/19/24 22:00 12/20/24 10:24 30 ML Diagnostic Test (Pha) 1 strip ACHS 12/19/24 17:00 12/20/24 12:14 1 STRIP Dextrose 50 ml UD PRN IV 12/19/24 16:45 12/20/24 05:39 50 ML Purified Water 200 ml Q4HR GT 12/19/24 22:00 12/20/24 14:30 200 ML Dextrose 1,000 ml @ 50 mls/hr Q20H IV 12/20/24 10:00 Cancel Potassium Chloride 100 ml @ 100 mls/hr DAILY@1100 IV 12/20/24 11:00 12/20/24 11:17 100 MLS/HR Enteral Nutritional Formula 1,000 ml 50ML/HR GT 12/20/24 12:30 Examination: GENERAL:Abnormal, ABDOMEN:Abnormal, MSK:Abnormal laboratory and microbiology Laboratory Tests 12/20/24 03:15 Test 12/20/24 03:15 Range/Units Serum Glucose 69 L 74-106 mg/dL Microbiology Date/Time Source Procedure Growth Status 12/16/24 18:17 Bronchial Washings Gram Stain - Final Complete 12/16/24 18:17 Respiratory Culture - Final Escherichia coli - ESBL Complete 12/13/24 12:54 Nose MRSA Screen - Final Complete 12/13/24 10:15 Ascities Fluid Gram Stain - Final Complete 12/13/24 10:15 Ascities Fluid Body Fluid Culture - Final Complete 12/13/24 06:00 Urine - Waterman Port Urine Culture - Final Escherichia coli Complete 12/12/24 20:00 Blood Blood Culture - Final NO GROWTH AFTER 5 DAYS OF INCUBATION. Complete Problem List/Assessment/Plan Problem List/Assessment/Plan Acute kidney injury superimposed Chronic Kidney Disease secondary hemodynamic mediated, FeNa < 1% Hepatorenal syndrome Acute respiratory failure, intubated on ventilator Hepatic encephalopathy Urinary tract infection GI bleeding Liver cirrhosis Ascites Hypoalbuminemia Pancytopenia hypernatremia hypokalemia recs dc all ivf kcl prn replace free water for sodium correction on spironolactone Plan discussed with: Other My Orders My Orders Orders - BRENDA HANSON MD Procedure Category Date Status Time Potassium Chl PHA 12/20/24 In Process 20meq/100ml 11:00 Communication Order ORDERS 12/20/24 Transmitted 17:10 Dietary Evaluation Review Comments: 1. Considering high propofol requirements, recommend EN initiation with trickle-tube feeds of Vital HP @ 15 ml/hr 2. Provide minimal free water flushes for tube patency of 30 ml Q6 hrs (120 ml total) or per MD discretion 3. Monitor BMP/lytes and replete to WNL/PRN Expected Outcomes/Goals: Improved nutritional status BRENDA HANSON MD Dec 20, 2024 17:20
--- NOTE | 2024-12-20 23:17 | DVHPN2 ---
Progress Note - Dictate Date Seen: Dec 20, 2024 Medical Necessity Reason Pt with a Central, PICC or Fol: Yes The following are medically ne: Waterman Catheter Reason for waterman catheter: Strict I&O Subjective Patient seen and examined at bedside. Remains on supplemental oxygen Overnight events reviewed. vital signs Vital Sign Date Time Temp Pulse Resp B/P (MAP) Pulse Ox O2 Delivery O2 Flow Rate FiO2 12/20/24 18:30 76 14 118/68 (85) 98 12/20/24 18:30 Nasal Cannula* 2 28 12/20/24 17:00 97.6 97.6 Total Intake and Output 12/19/24 12/19/24 12/20/24 14:59 22:59 06:59 Intake Total 387.813 ml 266.852 ml 1104.904 ml Output Total 825 ml 1300 ml Balance 387.813 ml -558.148 ml -195.096 ml medications Current Medications Medications Dose Ordered Sig/Leti Route Start Time Stop Time Status Last Admin Dose Admin Ondansetron HCl 4 mg Q4HP PRN IV 12/13/24 00:15 Nitroglycerin 0.4 mg Q5MINP PRN SL 12/13/24 00:15 Ceftriaxone Sodium 50 ml @ 100 mls/hr DAILY@2000 IV 12/13/24 20:00 Cancel Norepinephrine Bitartrate 250 ml @ 3.75 mls/hr Q24H IV 12/13/24 08:15 12/15/24 05:54 7.5 MLS/HR Dopamine HCl/ Dextrose 250 ml @ 4.613 mls/ hr Q24H IV 12/14/24 10:45 12/20/24 13:06 4.613 MLS/HR Pantoprazole Sodium 40 mg BID IV 12/16/24 22:00 12/20/24 21:11 40 MG Flumazenil 0.2 mg ONCE STAT IV 12/17/24 20:22 12/17/24 20:23 Cancel Meropenem 50 ml @ 17 mls/hr Q12H IV 12/18/24 11:30 12/20/24 10:25 17 MLS/HR Spironolactone 25 mg BIDD PO 12/19/24 18:00 12/20/24 05:18 25 MG Lactulose 30 ml BID NG 12/19/24 22:00 12/20/24 21:11 30 ML Diagnostic Test (Pha) 1 strip ACHS 12/19/24 17:00 12/20/24 21:10 1 STRIP Dextrose 50 ml UD PRN IV 12/19/24 16:45 12/20/24 05:39 50 ML Purified Water 200 ml Q4HR GT 12/19/24 22:00 12/20/24 21:11 200 ML Dextrose 1,000 ml @ 50 mls/hr Q20H IV 12/20/24 10:00 Cancel Potassium Chloride 100 ml @ 100 mls/hr DAILY@1100 IV 12/20/24 11:00 12/20/24 11:17 100 MLS/HR Enteral Nutritional Formula 1,000 ml 50ML/HR GT 12/20/24 12:30 objective Gen.: Patient lying in bed in no apparent distress. On supplemental oxygen. Head: Normocephalic, atraumatic. Eyes: EOMI/PERRLA. Ears: Normal hearing. Normal anatomy. Neck/trachea: Trachea midline, supple. Nose: Normal external anatomy. Mouth: Moist mucous membranes. Chest: Decreased air entry bilaterally. No wheezing or rhonchi. Cardiovascular: Positive S1, positive S2. Regular rate and rhythm. Abdomen: Positive bowel sounds in all 4 quadrants. Soft, non-tender, non- distended. : Deferred. Rectal: Deferred. Skin: Warm, dry. Intact. Extremities: 2+ radial pulses bilaterally. No lower extremity edema. Neuro: Awake, alert, oriented x3. No gross motor or sensory deficits. Cranial nerves II through XII intact. Gait not assessed laboratory and microbiology Laboratory Tests 12/20/24 03:15 Test 12/20/24 03:15 Range/Units Serum Glucose 69 L 74-106 mg/dL Assessment/Plan Impression: Acute hypoxic respiratory failure Hepatic encephalopathy Hyperammonemia Liver cirrhosis Large volume ascites Thrombocytopenia Anemia, chronic Acute on chronic kidney disease Lactic acidosis Metabolic acidosis Events: Remains on 2 LPM NC supplemental oxygen Taper O2 as tolerated Head of bed elevation Aspiration precautions Supportive care Continue abx Continue lactulose. Remains on Dopamine 2 mcg/min Hemoglobin stable - continue to monitor Protonix BID Monitor renal function Monitor electrolytes. Supplement as necessary. Potassium supplementation Tube feeds for nutritional support Patient is more awake, alert. Patient is stable from the pulmonary standpoint for downgrade to MARCE. Labs and imaging reviewed. Rest of plan as noted below. Plan: s/p extubation on 12/17/24 Supplemental oxygen Titrate to keep O2 sats above 92%. Off sedation Pressors as necessary for hemodynamic support. Titrate to keep MAP above 65 mmHg/SBP above 90 mmHg. Continue antibiotics. Follow up cultures Bronchial cultures grew ESBL E.coli On IV fluids w/ NS at 60 mL an hour Monitor renal function due to Acute kidney injury. Monitor electrolytes. Supplement as necessary. Monitor ins and outs Nephrology recommendations appreciated. Metabolic acidosis - received one ampule of bicarbonate on 12/13. Status post paracentesis, albumin given. Nutritional support. Accu-Cheks, ISS. GI/DVT prophylaxis. Condition: Critical Prognosis: Guarded given multiple comorbidities. Rest of plan per hospitalist and other consultants. A total of 35 minutes of critical care time was spent reviewing the patient record, examining the patient, making a diagnostic and therapeutic plan, discussing this plan with the medical personnel, following up on diagnostic studies and following the patient for clinical stability excluding any and all procedures. At least 50% of this time was spent in direct, [id number] contact. Thank you MASSIEL Arias for allowing me to participate in this patient's care. Further recommendations will depend on patient's clinical course. Please do not hesitate to contact me if you have any questions or concerns. This medical document was created using an electronic medical record system with [employer] dictation system. Although this document has been carefully reviewed, there may still be some phonetic and typographical errors. These areas are purely typographical due to imperfections of the software programs, and do not reflect any compromise in the patient's medical care. Dietary Evaluation Review Comments: 1. Considering high propofol requirements, recommend EN initiation with trickle-tube feeds of Vital HP @ 15 ml/hr 2. Provide minimal free water flushes for tube patency of 30 ml Q6 hrs (120 ml total) or per MD discretion 3. Monitor BMP/lytes and replete to WNL/PRN Expected Outcomes/Goals: Improved nutritional status Plan discussed with: Other (GLADYS Garcia) Critical Care Time(min): 35 SCOTT NELSON MD Dec 20, 2024 23:17
[2024-12-21] VITALS (102 sets, daily range): BP systolic 67–162; BP diastolic 36–99; PULSE 60–125; RESP 8–16; TEMP 96.8–98; O2SAT 93–100
[2024-12-21] MEDS: MEROPENEM 500MG IVPB 50 ML IV ONE (00:22)
[2024-12-21 03:29] LABS: Anion Gap 12 (5-15); Carbon Dioxide 21 mmol/L (20-31)
[2024-12-21 03:31] LABS: Mean Corpuscular Hgb Conc. 32.9 g/dL (32.0-36.0)
[2024-12-21 03:35] LABS: BUN/Creatinine Ratio 20.8 (10.0-20.0); Glucose 84 mg/dL (74-106)
[2024-12-21 03:37] LABS: Blood Urea Nitrogen 47 mg/dL (9-23); Chloride 121 mmol/L (98-107); Potassium 3.3 mmol/L (3.5-5.1); Sodium 154 mmol/L (136-145)
[2024-12-21 03:40] LABS: Hemoglobin 10.9 g/dL (12.2-16.2); Mean Corpuscular Hemoglobin 29.9 pg (28.0-32.0); Mean Corpuscular Volume 90.8 fL (80.0-100.0); Platelet Count (auto) 44 10^3/uL (140-450); Red Blood Cells 3.64 10^6/uL (4.0-5.20); White Blood Cell 3.7 10^3/uL (4.4-10.8)
[2024-12-21 03:51] LABS: Red Cell Distribution Width 28.8 % (11.8-14.3)
[2024-12-21 03:53] LABS: Band Neutrophils % (manual) 0; Basophils % (manual) 0 (0.0-2.0); Blast Cells 0; Eosinophils % (manual) 0 (0-7); Metamyelocytes % 0; Myelocytes % 0; Promyelocytes % 0; Reactive Lymphocytes 0
[2024-12-21 07:38] LABS: Anisocytosis Moderate; Hypochromia Slight; Lymphocytes % (manual) 13 (10.0-50.0); Monocytes % (manual) 10 (0-12); Platelet Estimate Decreased; Target Cell FEW
[2024-12-21] MEDS: NOREPINEPHRINE 8 MG/250ML KIT 250 ML IV SCH (10:00)
[2024-12-21 12:16] LABS: Phosphorus 2.6 mg/dL (2.4-5.1)
--- NOTE | 2024-12-21 15:01 | DVHPN2 ---
Progress Note Date Seen: Dec 21, 2024 Resident Creating Document: PATRICIA BRITTON RESIDENT Medical Necessity Reason Pt with a Central, PICC or Fol: Yes The following are medically ne: Waterman Catheter Reason for waterman catheter: Strict I&O Subjective Review of Systems Patient is 74-year-old female with known medical history of liver cirrhosis who brought to the hospital for altered mental level of consciousness. Over the night of hospitalization patient's mental status continued to be worsened, early in the morning on 12/13/2024 patient started having hematemesis and patient was intubated in ER for airway protection and started on mechanical ventilation. GI consultation has been done for GI bleed and management of liver cirrhosis. Past Medical History Liver cirrhosis, esophageal varices, end-stage liver disease with the ascites , hepatic encephalopathy Past Surgical History History of paracentesis Patient seen and examined at bedside. No other complains. Swallow eval pending, Not following command, start feeding via NG tube. Restarted on levophed. Objective vital signs Vital Sign Date Time Temp Pulse Resp B/P (MAP) Pulse Ox O2 Delivery O2 Flow Rate FiO2 12/21/24 14:06 80 12/21/24 14:06 12 98 Nasal Cannula* 2 28 12/21/24 14:00 119/72 (88) 12/21/24 12:15 98.0 98.0 Total Intake and Output 12/20/24 12/20/24 12/21/24 15:00 23:00 07:00 Intake Total 186.8 ml 638.8 ml 820 ml Output Total 950 ml 750 ml Balance 186.8 ml -311.2 ml 70 ml medications Current Medications Medications Dose Ordered Sig/Leti Route Start Time Stop Time Status Last Admin Dose Admin Ondansetron HCl 4 mg Q4HP PRN IV 12/13/24 00:15 Nitroglycerin 0.4 mg Q5MINP PRN SL 12/13/24 00:15 Ceftriaxone Sodium 50 ml @ 100 mls/hr DAILY@2000 IV 12/13/24 20:00 Cancel Dopamine HCl/ Dextrose 250 ml @ 4.613 mls/ hr Q24H IV 12/14/24 10:45 12/20/24 13:06 4.613 MLS/HR Pantoprazole Sodium 40 mg BID IV 12/16/24 22:00 12/21/24 09:53 40 MG Flumazenil 0.2 mg ONCE STAT IV 12/17/24 20:22 12/17/24 20:23 Cancel Meropenem 50 ml @ 17 mls/hr Q12H IV 12/18/24 11:30 12/21/24 12:28 17 MLS/HR Spironolactone 25 mg BIDD PO 12/19/24 18:00 12/21/24 05:09 25 MG Lactulose 30 ml BID NG 12/19/24 22:00 12/21/24 09:53 30 ML Diagnostic Test (Pha) 1 strip ACHS 12/19/24 17:00 12/21/24 11:30 1 STRIP Dextrose 50 ml UD PRN IV 12/19/24 16:45 12/20/24 05:39 50 ML Purified Water 200 ml Q4HR GT 12/19/24 22:00 12/21/24 09:53 200 ML Dextrose 1,000 ml @ 50 mls/hr Q20H IV 12/20/24 10:00 Cancel Potassium Chloride 100 ml @ 100 mls/hr DAILY@1100 IV 12/20/24 11:00 12/21/24 10:48 100 MLS/HR Enteral Nutritional Formula 1,000 ml 50ML/HR GT 12/20/24 12:30 Norepinephrine Bitartrate 250 ml @ 3.75 mls/hr Q24H IV 12/21/24 10:00 12/21/24 10:00 1.875 MLS/HR Examination General Appearance: Intubated, sedated on mechanical ventilation. Head Exam: Normal inspection Neck Exam: Normal inspection. Non-tender. Normal alignment Pulmonary/Respiratory: Chest non-tender. Clear bilateral breath sounds Cardiovascular/Chest: Regular rate and rhythm. No murmurs. No JVD. Peripheral Pulses: 2+ Radial (R). 2+ Radial (L). 2+ Pedal (R). 2+ Pedal (L) Abdominal Exam: Abdomen is soft, nontender. Positive bowel sounds. Ankle Exam: Negative ankle edema Lower extremities: 2+ lower extremity edema, chronic venous stasis. Neuro/Mental Status: A&O x4. Coherent Thoughts/Psych: Normal thought pattern. Appropriate mood and affect. Good judgement and insight Appearance: In no acute distress Skin Exam: Normal inspection. Normal color. Warm. Dry laboratory and microbiology Laboratory Tests 12/21/24 02:52 Test 12/21/24 02:52 Range/Units Serum Glucose 84 74-106 mg/dL Microbiology Date/Time Source Procedure Growth Status 12/16/24 18:17 Bronchial Washings Gram Stain - Final Complete 12/16/24 18:17 Respiratory Culture - Final Escherichia coli - ESBL Complete 12/13/24 12:54 Nose MRSA Screen - Final Complete 12/13/24 10:15 Ascities Fluid Gram Stain - Final Complete 12/13/24 10:15 Ascities Fluid Body Fluid Culture - Final Complete 12/13/24 06:00 Urine - [place] Urine Culture - Final Escherichia coli Complete 12/12/24 20:00 Blood Blood Culture - Final NO GROWTH AFTER 5 DAYS OF INCUBATION. Complete Problem List/Assessment/Plan Problem List/Assessment/Plan Liver cirrhosis Trace distal esophageal varices without bleeding Active upper GI bleed due to Severe gastropathy with gastritis Antral polyps of stomach Hepatic encephalopathy Esophageal variceal Moderate ascites Hypoalbuminemia Hyperammonemia Upper GI bleed Thrombocytopenia GER hemodynamically mediated UTI Plan/recommendation. Dr Foley EGD on 12/14/2024:1. Patient had trace distal esophageal varices without stigmata of bleeding from the varices 2. Patient had a moderate amount of old blood in the stomach after this was aspirated patient was noted to have underlying [id number] gastropathy and gastritis with multiple areas of oozing from the stomach lining 3. There was a 1.5-2 cm pre-pyloric inflammatory antral polyp that was oozing, it was initially biopsied and then removed completely via hot snare polypectomy 4. There were three benign-appearing gastric polyps in the body of the that were seen and removed via hot snare polypectomy 5. Otherwise normal examination up to the 2nd and 3rd part of the duodenum Feeding via NG tube while pending for swallow eval, Vital AF 10 ml/hr, traget 30 ml/hr. Continue feeding as tolerated -continue Protonix 40 mg IV b.i.d., continue monitor H&H. -lactulose 30 mg q.6 via NG tube, ammonia is trending down, continue to monitor. -1 unit of PRBC given hemoglobin less than eight, with active GI bleed. 2 PRBC has been given yesterday. -administration IV albumin given after paracentesis: Removed fluid around 6.9 L. -IV antibiotics: Paracentesis fluid analysis showed WBC less than 200, less likely spontaneous bacterial peritonitis. -closely monitor fluid and electrolyte status, maintain map greater than 65. Can initiate vasopressor Levophed if needed. -we will continue to monitor and following up. Plan discussed with: Other (RN) Dietary Evaluation Review Comments: 1. Considering high propofol requirements, recommend EN initiation with trickle-tube feeds of Vital HP @ 15 ml/hr 2. Provide minimal free water flushes for tube patency of 30 ml Q6 hrs (120 ml total) or per MD discretion 3. Monitor BMP/lytes and replete to WNL/PRN Expected Outcomes/Goals: Improved nutritional status PATRICIA BRITTON RESIDENT Dec 21, 2024 15:01
--- NOTE | 2024-12-21 17:15 | DVHPN2 ---
Subjective Assuming the care of the patient from today onwards. This is a 74-year-old female with a known history of end-stage liver disease, hepatic encephalopathy who initially presented to the hospital with altered mental status eventually found to have hematemesis in the ER intubated for airway protection. Patient is currently extubated on continuous O2 supplementation by nasal cannula, patient's mental status slowly improving. Reviewed: Care Plan Changes from previous H/P or p: No Changes Objective Vitals Vital Signs Date Time Temp Pulse Resp B/P (MAP) Pulse Ox O2 Delivery O2 Flow Rate FiO2 12/21/24 15:05 95/66 12/21/24 14:06 80 12/21/24 14:06 12 98 Nasal Cannula* 2 28 12/21/24 12:15 98.0 98.0 Intake/Output Intake and Output 12/21/24 07:00 Intake Total 1645.6 ml Output Total 1700 ml Balance -54.4 ml Intake Oral 600 ml IV Total 321.6 ml Tube Feeding 124 ml Other 600 ml Output Urine Total 1300 ml Stool Total 400 ml Exam HEENT pupils are reactive Neck is supple CVS S1-S2 regular rate and rhythm Respiratory diminished breath sounds bases GI positive bowel sounds positive ascites Extremity trace edema BREAKER BOSS patient minimally following commands Medications Current Medications Medications Dose Ordered Sig/Leti Route Start Time Stop Time Status Last Admin Dose Admin Ondansetron HCl 4 mg Q4HP PRN IV 12/13/24 00:15 Nitroglycerin 0.4 mg Q5MINP PRN SL 12/13/24 00:15 Ceftriaxone Sodium 50 ml @ 100 mls/hr DAILY@2000 IV 12/13/24 20:00 Cancel Dopamine HCl/ Dextrose 250 ml @ 4.613 mls/ hr Q24H IV 12/14/24 10:45 12/21/24 15:05 4.613 MLS/HR Pantoprazole Sodium 40 mg BID IV 12/16/24 22:00 12/21/24 09:53 40 MG Flumazenil 0.2 mg ONCE STAT IV 12/17/24 20:22 12/17/24 20:23 Cancel Meropenem 50 ml @ 17 mls/hr Q12H IV 12/18/24 11:30 12/21/24 12:28 17 MLS/HR Spironolactone 25 mg BIDD PO 12/19/24 18:00 12/21/24 05:09 25 MG Lactulose 30 ml BID NG 12/19/24 22:00 12/21/24 09:53 30 ML Diagnostic Test (Pha) 1 strip ACHS 12/19/24 17:00 12/21/24 16:55 1 STRIP Dextrose 50 ml UD PRN IV 12/19/24 16:45 12/20/24 05:39 50 ML Purified Water 200 ml Q4HR GT 12/19/24 22:00 12/21/24 14:20 200 ML Dextrose 1,000 ml @ 50 mls/hr Q20H IV 12/20/24 10:00 Cancel Potassium Chloride 100 ml @ 100 mls/hr DAILY@1100 IV 12/20/24 11:00 12/21/24 10:48 100 MLS/HR Enteral Nutritional Formula 1,000 ml 50ML/HR GT 12/20/24 12:30 Norepinephrine Bitartrate 250 ml @ 3.75 mls/hr Q24H IV 12/21/24 10:00 12/21/24 10:00 1.875 MLS/HR Morphine Sulfate 2 mg Q4HPRN PRN IV 12/21/24 16:00 UNV Laboratory Results Laboratory Tests 12/21/24 02:52 Chemistry Test 12/21/24 02:52 Calcium Level 9.0 mg/dL (8.7-10.4) Magnesium Level 2.0 mg/dL (1.6-2.6) Phosphorus Level 2.6 mg/dL (2.4-5.1) Urinalysis Test 12/13/24 06:00 Urine Color Yellow (Yellow) Urine Clarity Turbid (Clear) H Urine pH 5.5 (5.0-9.0) Urine Specific [place] 1.016 (1.001-1.035) Urine Protein Trace (Negative) H Urine Ketones Negative (Negative) Urine Blood Trace /uL (Negative) H Urine Nitrite Negative (Negative) Urine Bilirubin Negative (Negative) Urine Urobilinogen Normal mg/dL (Negative) Urine Leukocyte Esterase 3+ /uL (Negative) Urine RBC 2 /hpf (0 - 4) Urine WBC Clumps Present /hpf (None Seen) Urine Microscopic WBC 177 /HPF (0-5) H Urine Squamous Epithelial Cells Few /hpf (<5) Urine Bacteria Many /hpf (None Seen) H Urine Hyaline Casts Few /lpf (0 - 2) Urine Mucus Few (None Seen) Urine Creatinine 134.12 mg/dL (30.0-125.0) H Urine Protein/Creatinine Ratio 0.21 Urine Sodium < 10 mmol/L (40-220) L Urine Glucose Normal mg/dL (Normal) Urine Total Protein 27.9 mg/dL (1-14) H Microbiology Microbiology Date/Time Source Procedure Growth Status 12/16/24 18:17 Bronchial Washings Gram Stain - Final Complete 12/16/24 18:17 Respiratory Culture - Final Escherichia coli - ESBL Complete 12/13/24 12:54 Nose MRSA Screen - Final Complete 12/13/24 10:15 Ascities Fluid Gram Stain - Final Complete 12/13/24 10:15 Ascities Fluid Body Fluid Culture - Final Complete 12/13/24 06:00 Urine - [place] Urine Culture - Final Escherichia coli Complete 12/12/24 20:00 Blood Blood Culture - Final NO GROWTH AFTER 5 DAYS OF INCUBATION. Complete Assessment/Plan Assessment/Plan 74-year-old female with known history of end-stage liver disease, who initially presented to the hospital with a hematemesis altered mental status found to have 1. Acute hypoxic respiratory failure status post intubation, status post extubation currently on O2 supplementation 2. Upper GI bleed with esophageal varices and severe gastropathy status post EGD, status post biopsy of the gastric polyp and snare polypectomy 3. Hepatic encephalopathy, slowly improving 4. ESBL pneumonia 5. ESBL UTI 6. Acute kidney injury suspected secondary to vasomotor nephropathy 7. Moderate ascites status post paracentesis -continue Protonix lactulose as tolerated follow up with GI recommendation follow up Pulmonary recommendations Continue antibiotics follow up Infectious Disease recommendations. Plan discussed with: Patient, Other My Orders Orders - JUMANA MANCILLA MD Procedure Category Date Status Time Morphine Sulfate PHA 12/21/24 Logged Injection 16:00 Date of Service: Dec 21, 2024 Billing Provider: JUMANA MANCILLA MD Common Visit Codes: NOT BILLABLE JUMANA MANCILLA MD Dec 21, 2024 17:15
--- NOTE | 2024-12-21 18:57 | DVHPN2 ---
Progress Note Date Seen: Dec 21, 2024 Medical Necessity Reason Pt with a Central, PICC or Fol: Yes The following are medically ne: Waterman Catheter Reason for waterman catheter: Strict I&O Subjective Patient reports: Other (No new events ) Review of Systems: Deferred Objective vital signs Vital Sign Date Time Temp Pulse Resp B/P (MAP) Pulse Ox O2 Delivery O2 Flow Rate FiO2 12/21/24 18:45 101 12 116/74 (88) 97 12/21/24 18:15 Nasal Cannula* 2 28 12/21/24 16:15 97.9 97.9 Total Intake and Output 12/20/24 12/20/24 12/21/24 15:00 23:00 07:00 Intake Total 186.8 ml 638.8 ml 820 ml Output Total 950 ml 750 ml Balance 186.8 ml -311.2 ml 70 ml medications Current Medications Medications Dose Ordered Sig/Leti Route Start Time Stop Time Status Last Admin Dose Admin Ondansetron HCl 4 mg Q4HP PRN IV 12/13/24 00:15 Nitroglycerin 0.4 mg Q5MINP PRN SL 12/13/24 00:15 Ceftriaxone Sodium 50 ml @ 100 mls/hr DAILY@2000 IV 12/13/24 20:00 Cancel Dopamine HCl/ Dextrose 250 ml @ 4.613 mls/ hr Q24H IV 12/14/24 10:45 12/21/24 15:05 4.613 MLS/HR Pantoprazole Sodium 40 mg BID IV 12/16/24 22:00 12/21/24 09:53 40 MG Flumazenil 0.2 mg ONCE STAT IV 12/17/24 20:22 12/17/24 20:23 Cancel Meropenem 50 ml @ 17 mls/hr Q12H IV 12/18/24 11:30 12/21/24 12:28 17 MLS/HR Spironolactone 25 mg BIDD PO 12/19/24 18:00 12/21/24 17:56 25 MG Lactulose 30 ml BID NG 12/19/24 22:00 12/21/24 09:53 30 ML Diagnostic Test (Pha) 1 strip ACHS 12/19/24 17:00 12/21/24 16:55 1 STRIP Dextrose 50 ml UD PRN IV 12/19/24 16:45 12/20/24 05:39 50 ML Purified Water 200 ml Q4HR GT 12/19/24 22:00 12/21/24 17:57 200 ML Dextrose 1,000 ml @ 50 mls/hr Q20H IV 12/20/24 10:00 Cancel Potassium Chloride 100 ml @ 100 mls/hr DAILY@1100 IV 12/20/24 11:00 12/21/24 10:48 100 MLS/HR Enteral Nutritional Formula 1,000 ml 50ML/HR GT 12/20/24 12:30 Norepinephrine Bitartrate 250 ml @ 3.75 mls/hr Q24H IV 12/21/24 10:00 12/21/24 10:00 1.875 MLS/HR Morphine Sulfate 2 mg Q4HPRN PRN IV 12/21/24 16:00 UNV Examination: GENERAL:Abnormal, LUNGS:Abnormal, NEURO:Abnormal laboratory and microbiology Laboratory Tests 12/21/24 02:52 Test 12/21/24 02:52 Range/Units Serum Glucose 84 74-106 mg/dL Microbiology Date/Time Source Procedure Growth Status 12/16/24 18:17 Bronchial Washings Gram Stain - Final Complete 12/16/24 18:17 Respiratory Culture - Final Escherichia coli - ESBL Complete 12/13/24 12:54 Nose MRSA Screen - Final Complete 12/13/24 10:15 Ascities Fluid Gram Stain - Final Complete 12/13/24 10:15 Ascities Fluid Body Fluid Culture - Final Complete 12/13/24 06:00 Urine - [place] Urine Culture - Final Escherichia coli Complete 12/12/24 20:00 Blood Blood Culture - Final NO GROWTH AFTER 5 DAYS OF INCUBATION. Complete Problem List/Assessment/Plan Problem List/Assessment/Plan Acute kidney injury superimposed Chronic Kidney Disease secondary hemodynamic mediated, FeNa < 1% Hepatorenal syndrome Acute respiratory failure, intubated on ventilator Hepatic encephalopathy Urinary tract infection GI bleeding Liver cirrhosis Ascites Hypoalbuminemia Pancytopenia hypernatremia hypokalemia recs . Stop Dopamine and spironolactone kcl prn replace free water for sodium correction increase dose Plan discussed with: Other Dietary Evaluation Review Comments: 1. Considering high propofol requirements, recommend EN initiation with trickle-tube feeds of Vital HP @ 15 ml/hr 2. Provide minimal free water flushes for tube patency of 30 ml Q6 hrs (120 ml total) or per MD discretion 3. Monitor BMP/lytes and replete to WNL/PRN Expected Outcomes/Goals: Improved nutritional status BRENDA HANSON MD Dec 21, 2024 18:57
--- NOTE | 2024-12-21 19:56 | DVHPN2 ---
Consult Progress Note Date Seen: Dec 19, 2024 Subjective Patient reports: Other (improving mentation and able to answer questions in ukrainian and follow simple commands , track with eye movements , abdomen is distended with a positive fluid wave and has 300ccs of diarrhea output ) Objective vital signs Vital Sign Date Time Temp Pulse Resp B/P (MAP) Pulse Ox O2 Delivery O2 Flow Rate FiO2 12/21/24 18:45 101 12 116/74 (88) 97 12/21/24 18:15 Nasal Cannula* 2 28 12/21/24 16:15 97.9 97.9 Total Intake and Output 12/20/24 12/20/24 12/21/24 15:00 23:00 07:00 Intake Total 186.8 ml 638.8 ml 820 ml Output Total 950 ml 750 ml Balance 186.8 ml -311.2 ml 70 ml medications Current Medications Medications Dose Ordered Sig/Leti Route Start Time Stop Time Status Last Admin Dose Admin Ondansetron HCl 4 mg Q4HP PRN IV 12/13/24 00:15 Nitroglycerin 0.4 mg Q5MINP PRN SL 12/13/24 00:15 Ceftriaxone Sodium 50 ml @ 100 mls/hr DAILY@2000 IV 12/13/24 20:00 Cancel Pantoprazole Sodium 40 mg BID IV 12/16/24 22:00 12/21/24 09:53 40 MG Flumazenil 0.2 mg ONCE STAT IV 12/17/24 20:22 12/17/24 20:23 Cancel Meropenem 50 ml @ 17 mls/hr Q12H IV 12/18/24 11:30 12/21/24 12:28 17 MLS/HR Lactulose 30 ml BID NG 12/19/24 22:00 12/21/24 09:53 30 ML Diagnostic Test (Pha) 1 strip ACHS 12/19/24 17:00 12/21/24 16:55 1 STRIP Dextrose 50 ml UD PRN IV 12/19/24 16:45 12/20/24 05:39 50 ML Dextrose 1,000 ml @ 50 mls/hr Q20H IV 12/20/24 10:00 Cancel Potassium Chloride 100 ml @ 100 mls/hr DAILY@1100 IV 12/20/24 11:00 12/21/24 10:48 100 MLS/HR Enteral Nutritional Formula 1,000 ml 50ML/HR GT 12/20/24 12:30 Norepinephrine Bitartrate 250 ml @ 3.75 mls/hr Q24H IV 12/21/24 10:00 12/21/24 10:00 1.875 MLS/HR Morphine Sulfate 2 mg Q4HPRN PRN IV 12/21/24 16:00 Purified Water 300 ml Q4HR GT 12/21/24 22:00 Physical Exam: General: Patient is obtunded, only responsive to name. Neck: Supple. No masses. HEENT: PERRL. Normal lids and conjunctiva. Moist mucous membranes. Oropharynx without lesions, exudates or excessive erythema. Normal appearance of the external aspects of the nose and ears. Heart: Regular rhythm, normal rate. No murmur. No lower extremity edema. Lungs: Normal respiratory effort. Clear to auscultation bilaterally. No wheezes. No crackles. Abdomen: Distended abdomen with positive fluid wave. Msk: Diffuse edema in lower extremities. Skin: Mild jaundice, bruising on face. Neuro: Altered mental status; only alert to name. Psych: Unable to assess due to altered mental status. Oriented to person, place, time, and situation: No. laboratory and microbiology Laboratory Tests 12/21/24 02:52 Test 12/21/24 02:52 Range/Units Serum Glucose 84 74-106 mg/dL Problem List/Assessment/Plan Problems(with codes): (1) Sputum culture positive for ESBL E. coli (2) Pneumonia (3) Hypotension (4) Thrombocytopenia (5) Pancytopenia (6) Liver cirrhosis (7) Ascites (8) Hyperammonemia (9) Anemia (10) Acute renal failure (11) Hepatic encephalopathy (12) Hematemesis Problem List/Assessment/Plan ID Problem List: - Decompensated liver cirrhosis - Hepatic encephalopathy - Esophageal varices - ESBL E. coli pneumonia - E. coli UTI - Acute hypoxic respiratory failure - Septic shock - GER vs. CKD - Thrombocytopenia - Anemia - Diabetes mellitus - Diarrhea - Altered mental status - Anasarca Assessment This is a 74 y.o. female with a past medical history of liver cirrhosis and diabetes mellitus, who presents with bloody vomiting and altered mental status. Patient was only alert to her name upon admission with an elevated ammonia level of 197. She exhibited large volume ascites, anemia (Hb 9.6), thrombocytopenia (platelets 75), and leukopenia (WBC 2.7). Imaging revealed a cirrhotic liver with large volume ascites, esophageal varices, and evidence of pneumonia. She underwent upper endoscopy revealing trace distal esophageal varices without stigmata of bleeding, moderate to severe gastropathy and gastritis with multiple areas of oozing, and removal of gastric polyps via hot snare polypectomy. BAL cultures are growing ESBL E. coli sensitive to ertapenem, gentamicin, meropenem, and Zosyn; resistant to cefepime. 12/18: sodium is 150 , BUN is 59 which is likely contributing to patients altered mental status 12/19: responding to antibiotic , diarrhea is likely related to refaxmen use and trying to improve mentation with adequate bowel movements Plan: - Agree with switch to meropenem; continue meropenem for treatment of pneumonia for a total of 7-10 days. - Monitor renal function; defer management of GER to nephrology. - Continue aspiration precautions; keep patient upright at 30 degrees. - Follow up on blood cultures; low concern for SBP at this time. - Provide pressor support as needed to maintain MAP >65 mmHg. - Fluid restriction due to liver cirrhosis and recurrent ascites. - Defer management of hepatic encephalopathy to GI team and primary care team. - Monitor electrolyte levels; sodium is slowly rising. - Continue rifaximin for hepatic encephalopathy. - Monitor for signs of recurrent pneumonia; repeat sputum cultures and chest X- ray if needed. Authorized and Performed by: Anai Ureña Total critical care time: Approximately 76 minutes Due to a high probability of clinically significant, life threatening deterioration, the patient required my highest level of preparedness to intervene emergently and I personally spent this critical care time directly and personally managing the patient. This critical care time included obtaining a history; examining the patient; pulse oximetry; ordering and review of studies; arranging urgent treatment with development of a management plan; evaluation of patient's response to treatment; frequent reassessment; and, discussions with other providers. This critical care time was performed to assess and manage the high probability of imminent, life-threatening deterioration that could result in multi-organ failure. It was exclusive of separately billable procedures and treating other patients and teaching time. Isolation Precautions: contact ESBL Plan discussed with: Other Dietary Evaluation Review Comments: 1. Considering high propofol requirements, recommend EN initiation with trickle-tube feeds of Vital HP @ 15 ml/hr 2. Provide minimal free water flushes for tube patency of 30 ml Q6 hrs (120 ml total) or per MD discretion 3. Monitor BMP/lytes and replete to WNL/PRN Expected Outcomes/Goals: Improved nutritional status ANAI UREÑA MD Dec 21, 2024 19:56
[2024-12-21] MEDS: ONDANSETRON HCL 4 MG/2 ML VIAL IV PRN (19:59)
[2024-12-21] MEDS: MORPHINE SULFATE INJ 2 MG/ml SYRG IV PRN (20:00)
--- NOTE | 2024-12-21 20:52 | DVHPN2 ---
Consult Progress Note Date Seen: Dec 21, 2024 Subjective Patient reports: Other (briefly on pressures today but now off , good urine output and still on drip , 400ccs od diarrhea ) Objective vital signs Vital Sign Date Time Temp Pulse Resp B/P (MAP) Pulse Ox O2 Delivery O2 Flow Rate FiO2 12/21/24 20:30 73 8 104/68 12/21/24 18:45 97 12/21/24 18:15 Nasal Cannula* 2 28 12/21/24 16:15 97.9 97.9 Total Intake and Output 12/20/24 12/20/24 12/21/24 15:00 23:00 07:00 Intake Total 186.8 ml 638.8 ml 820 ml Output Total 950 ml 750 ml Balance 186.8 ml -311.2 ml 70 ml medications Current Medications Medications Dose Ordered Sig/Leti Route Start Time Stop Time Status Last Admin Dose Admin Ondansetron HCl 4 mg Q4HP PRN IV 12/13/24 00:15 12/21/24 19:59 4 MG Nitroglycerin 0.4 mg Q5MINP PRN SL 12/13/24 00:15 Ceftriaxone Sodium 50 ml @ 100 mls/hr DAILY@2000 IV 12/13/24 20:00 Cancel Pantoprazole Sodium 40 mg BID IV 12/16/24 22:00 12/21/24 09:53 40 MG Flumazenil 0.2 mg ONCE STAT IV 12/17/24 20:22 12/17/24 20:23 Cancel Lactulose 30 ml BID NG 12/19/24 22:00 12/21/24 09:53 30 ML Diagnostic Test (Pha) 1 strip ACHS 12/19/24 17:00 12/21/24 16:55 1 STRIP Dextrose 50 ml UD PRN IV 12/19/24 16:45 12/20/24 05:39 50 ML Dextrose 1,000 ml @ 50 mls/hr Q20H IV 12/20/24 10:00 Cancel Potassium Chloride 100 ml @ 100 mls/hr DAILY@1100 IV 12/20/24 11:00 12/21/24 10:48 100 MLS/HR Enteral Nutritional Formula 1,000 ml 50ML/HR GT 12/20/24 12:30 Norepinephrine Bitartrate 250 ml @ 3.75 mls/hr Q24H IV 12/21/24 10:00 2/19/25 10:00 1.875 MLS/HR Morphine Sulfate 2 mg Q4HPRN PRN IV 12/21/24 16:00 12/21/24 20:00 2 MG Purified Water 300 ml Q4HR GT 12/21/24 22:00 Piperacillin Sod/ Tazobactam Sod 100 ml @ 25 mls/hr Q12HR IV 12/21/24 22:00 UNV Physical Exam: General: Patient is obtunded, only responsive to name. Neck: Supple. No masses. HEENT: PERRL. Normal lids and conjunctiva. Moist mucous membranes. Oropharynx without lesions, exudates or excessive erythema. Normal appearance of the external aspects of the nose and ears. Heart: Regular rhythm, normal rate. No murmur. No lower extremity edema. Lungs: Normal respiratory effort. Clear to auscultation bilaterally. No wheezes. No crackles. Abdomen: Distended abdomen with positive fluid wave. Msk: Diffuse edema in lower extremities. Skin: Mild jaundice, bruising on face. Neuro: Altered mental status; only alert to name. Psych: Unable to assess due to altered mental status. Oriented to person, place, time, and situation: No. laboratory and microbiology Laboratory Tests 12/21/24 02:52 Test 12/21/24 02:52 Range/Units Serum Glucose 84 74-106 mg/dL Problem List/Assessment/Plan Problems(with codes): (1) Sputum culture positive for ESBL E. coli (2) Pneumonia (3) Hypotension (4) Thrombocytopenia (5) Liver cirrhosis (6) Pancytopenia (7) Ascites (8) Hyperammonemia (9) Anemia (10) Acute renal failure Problem List/Assessment/Plan ID Problem List: - Decompensated liver cirrhosis - Hepatic encephalopathy - Esophageal varices - ESBL E. coli pneumonia - E. coli UTI - Acute hypoxic respiratory failure - Septic shock - GER vs. CKD - Thrombocytopenia - Anemia - Diabetes mellitus - Diarrhea - Altered mental status - Anasarca Assessment This is a 74 y.o. female with a past medical history of liver cirrhosis and diabetes mellitus, who presents with bloody vomiting and altered mental status. Patient was only alert to her name upon admission with an elevated ammonia level of 197. She exhibited large volume ascites, anemia (Hb 9.6), thrombocytopenia (platelets 75), and leukopenia (WBC 2.7). Imaging revealed a cirrhotic liver with large volume ascites, esophageal varices, and evidence of pneumonia. She underwent upper endoscopy revealing trace distal esophageal varices without stigmata of bleeding, moderate to severe gastropathy and gastritis with multiple areas of oozing, and removal of gastric polyps via hot snare polypectomy. BAL cultures are growing ESBL E. coli sensitive to ertapenem, gentamicin, meropenem, and Zosyn; resistant to cefepime. 12/18: sodium is 150 , BUN is 59 which is likely contributing to patients altered mental status 12/19: responding to antibiotic , diarrhea is likely related to refaxmen use and trying to improve mentation with adequate bowel movements 12/20: sodium is 153 12/21: sodium is 154 Plan: - Stop Meropenem and switch to ertapenem to reduce sodium for an additional 7 day course - Monitor renal function; defer management of GER to nephrology. - Continue aspiration precautions; keep patient upright at 30 degrees. - Follow up on blood cultures; low concern for SBP at this time. - Provide pressor support as needed to maintain MAP >65 mmHg. - Fluid restriction due to liver cirrhosis and recurrent ascites. - Defer management of hepatic encephalopathy to GI team and primary care team. - Monitor electrolyte levels; sodium is slowly rising. - Continue rifaximin for hepatic encephalopathy. - Monitor for signs of recurrent pneumonia; repeat sputum cultures and chest X- ray if needed. Authorized and Performed by: Anai Ureña Total critical care time: Approximately 76 minutes Due to a high probability of clinically significant, life threatening deterioration, the patient required my highest level of preparedness to intervene emergently and I personally spent this critical care time directly and personally managing the patient. This critical care time included obtaining a history; examining the patient; pulse oximetry; ordering and review of studies; arranging urgent treatment with development of a management plan; evaluation of patient's response to treatment; frequent reassessment; and, discussions with other providers. This critical care time was performed to assess and manage the high probability of imminent, life-threatening deterioration that could result in multi-organ failure. It was exclusive of separately billable procedures and treating other patients and teaching time. Isolation Precautions: contact ESBL Plan discussed with: Other Dietary Evaluation Review Comments: 1. Considering high propofol requirements, recommend EN initiation with trickle-tube feeds of Vital HP @ 15 ml/hr 2. Provide minimal free water flushes for tube patency of 30 ml Q6 hrs (120 ml total) or per MD discretion 3. Monitor BMP/lytes and replete to WNL/PRN Expected Outcomes/Goals: Improved nutritional status ANAI UREÑA MD Dec 21, 2024 20:52
[2024-12-21] MEDS ORDERED: PIPERACILLIN-TAZOB 3.375GM 100 ML IV SCH (22:00)
[2024-12-21] MEDS: FREE WATER GT SCH (22:16)
--- NOTE | 2024-12-21 23:36 | DVHPN2 ---
Progress Note - Dictate Date Seen: Dec 21, 2024 Medical Necessity Reason Pt with a Central, PICC or Fol: Yes The following are medically ne: Waterman Catheter Reason for waterman catheter: Strict I&O Subjective Patient seen and examined at bedside. Remains on supplemental oxygen Overnight events reviewed. vital signs Vital Sign Date Time Temp Pulse Resp B/P (MAP) Pulse Ox O2 Delivery O2 Flow Rate FiO2 12/21/24 22:00 71 12/21/24 22:00 9 99 Nasal Cannula* 2 28 12/21/24 20:30 104/68 12/21/24 16:15 97.9 97.9 Total Intake and Output 12/20/24 12/20/24 12/21/24 15:00 23:00 07:00 Intake Total 186.8 ml 638.8 ml 820 ml Output Total 950 ml 750 ml Balance 186.8 ml -311.2 ml 70 ml medications Current Medications Medications Dose Ordered Sig/Leti Route Start Time Stop Time Status Last Admin Dose Admin Ondansetron HCl 4 mg Q4HP PRN IV 12/13/24 00:15 12/21/24 19:59 4 MG Nitroglycerin 0.4 mg Q5MINP PRN SL 12/13/24 00:15 Ceftriaxone Sodium 50 ml @ 100 mls/hr DAILY@2000 IV 12/13/24 20:00 Cancel Pantoprazole Sodium 40 mg BID IV 12/16/24 22:00 12/21/24 22:16 40 MG Flumazenil 0.2 mg ONCE STAT IV 12/17/24 20:22 12/17/24 20:23 Cancel Lactulose 30 ml BID NG 12/19/24 22:00 12/21/24 22:16 30 ML Diagnostic Test (Pha) 1 strip ACHS 12/19/24 17:00 12/21/24 22:16 1 STRIP Dextrose 50 ml UD PRN IV 12/19/24 16:45 12/20/24 05:39 50 ML Dextrose 1,000 ml @ 50 mls/hr Q20H IV 12/20/24 10:00 Cancel Potassium Chloride 100 ml @ 100 mls/hr DAILY@1100 IV 12/20/24 11:00 12/21/24 10:48 100 MLS/HR Enteral Nutritional Formula 1,000 ml 50ML/HR GT 12/20/24 12:30 Norepinephrine Bitartrate 250 ml @ 3.75 mls/hr Q24H IV 12/21/24 10:00 12/21/24 10:00 1.875 MLS/HR Morphine Sulfate 2 mg Q4HPRN PRN IV 12/21/24 16:00 12/21/24 20:00 2 MG Purified Water 300 ml Q4HR GT 12/21/24 22:00 12/21/24 22:16 300 ML Piperacillin Sod/ Tazobactam Sod 100 ml @ 25 mls/hr Q12HR IV 12/21/24 22:00 UNV Ertapenem 0.5 gm/ Sodium Chloride 50 ml @ 100 mls/hr DAILY IV 12/22/24 10:00 objective Gen.: Patient lying in bed in no apparent distress. On supplemental oxygen. Head: Normocephalic, atraumatic. Eyes: EOMI/PERRLA. Ears: Normal hearing. Normal anatomy. Neck/trachea: Trachea midline, supple. Nose: Normal external anatomy. Mouth: Moist mucous membranes. Chest: Decreased air entry bilaterally. No wheezing or rhonchi. Cardiovascular: Positive S1, positive S2. Regular rate and rhythm. Abdomen: Positive bowel sounds in all 4 quadrants. Soft, non-tender, non- distended. : Deferred. Rectal: Deferred. Skin: Warm, dry. Intact. Extremities: 2+ radial pulses bilaterally. No lower extremity edema. Neuro: Awake, alert, oriented x3. No gross motor or sensory deficits. Cranial nerves II through XII intact. Gait not assessed laboratory and microbiology Laboratory Tests 12/21/24 02:52 Test 12/21/24 02:52 Range/Units Serum Glucose 84 74-106 mg/dL Assessment/Plan Impression: Acute hypoxic respiratory failure Hepatic encephalopathy Hyperammonemia Liver cirrhosis Large volume ascites Thrombocytopenia Anemia, chronic Acute on chronic kidney disease Lactic acidosis Metabolic acidosis Events: Remains on 2 LPM NC supplemental oxygen Taper O2 as tolerated Head of bed elevation Aspiration precautions Supportive care Continue abx Continue lactulose. Remains on Dopamine 2 mcg/min Off Levophed. Hemoglobin stable - continue to monitor Protonix BID Monitor renal function Monitor electrolytes. Supplement as necessary. Potassium supplementation Follow up Nephrology recommendations Tube feeds for nutritional support Pain control Avoid oversedation Labs and imaging reviewed. Rest of plan as noted below. Plan: s/p extubation on 12/17/24 Supplemental oxygen Titrate to keep O2 sats above 92%. Off sedation Pressors as necessary for hemodynamic support. Titrate to keep MAP above 65 mmHg/SBP above 90 mmHg. Continue antibiotics. Follow up cultures Bronchial cultures grew ESBL E.coli Monitor renal function due to acute kidney injury. Monitor electrolytes. Supplement as necessary. Monitor ins and outs Nephrology recommendations appreciated. Metabolic acidosis - received one ampule of bicarbonate on 12/13. Status post paracentesis, albumin given. Nutritional support. Accu-Cheks, ISS. GI/DVT prophylaxis. Condition: Critical Prognosis: Guarded given multiple comorbidities. Rest of plan per hospitalist and other consultants. A total of 35 minutes of critical care time was spent reviewing the patient record, examining the patient, making a diagnostic and therapeutic plan, discussing this plan with the medical personnel, following up on diagnostic studies and following the patient for clinical stability excluding any and all procedures. At least 50% of this time was spent in direct, [id number] contact. Thank you MASSIEL Arias for allowing me to participate in this patient's care. Further recommendations will depend on patient's clinical course. Please do not hesitate to contact me if you have any questions or concerns. This medical document was created using an electronic medical record system with [employer] dictation system. Although this document has been carefully reviewed, there may still be some phonetic and typographical errors. These areas are purely typographical due to imperfections of the software programs, and do not reflect any compromise in the patient's medical care. Dietary Evaluation Review Comments: 1. Considering high propofol requirements, recommend EN initiation with trickle-tube feeds of Vital HP @ 15 ml/hr 2. Provide minimal free water flushes for tube patency of 30 ml Q6 hrs (120 ml total) or per MD discretion 3. Monitor BMP/lytes and replete to WNL/PRN Expected Outcomes/Goals: Improved nutritional status Plan discussed with: Patient, Other (GLADYS Van) Critical Care Time(min): 35 SCOTT NELSON MD Dec 21, 2024 23:36
[2024-12-22] VITALS (101 sets, daily range): BP systolic 58–139; BP diastolic 39–88; PULSE 59–121; RESP 8–19; TEMP 97.6–99.2; O2SAT 92–100
[2024-12-22] MEDS: NOREPINEPHRINE 8 MG/250ML KIT 250 ML IV SCH
[2024-12-22 08:34] LABS: Basophils # (auto) 0 10 ^3/uL (0-0.2); Eosinophils # (auto) 0 10 ^3/uL (0-0.8); Eosinophils % (auto) 0.2 % (0.0-7.0); Hemoglobin 10.1 g/dL (12.2-16.2); Mean Corpuscular Volume 91.4 fL (80.0-100.0); Neutrophils # (auto) 3.2 10 ^3/uL (1.6-8.6); White Blood Cell 4.3 10^3/uL (4.4-10.8)
[2024-12-22 08:36] LABS: Basophils % (auto) 0.4 % (0.0-2.0); Hematocrit 30.9 % (36.0-46.0); Lymphocytes # (auto) 0.7 10 ^3/uL (0.4-5.4); Lymphocytes % (auto) 16.4 % (10.0-50.0); Mean Corpuscular Hgb Conc. 32.8 g/dL (32.0-36.0); Monocytes # (auto) 0.4 10 ^3/uL (0-1.3); Monocytes % (auto) 8.4 % (0.0-12.0); Neutrophils % (auto) 74.6 % (37.0-80.0); Nucleated Red Blood Cells % 0.4 %; Platelet Count (auto) 60 10^3/uL (140-450); Red Blood Cells 3.38 10^6/uL (4.0-5.20); Red Cell Distribution Width 28.8 % (11.8-14.3)
[2024-12-22 08:48] LABS: Potassium 3.7 mmol/L (3.5-5.1)
[2024-12-22 08:49] LABS: Anion Gap 11 (5-15)
[2024-12-22 08:53] LABS: Calcium 8.6 mg/dL (8.7-10.4); Carbon Dioxide 20 mmol/L (20-31); Chloride 122 mmol/L (98-107); Sodium 153 mmol/L (136-145)
[2024-12-22 08:54] LABS: BUN/Creatinine Ratio 21.6 (10.0-20.0); Glucose 77 mg/dL (74-106)
[2024-12-22 08:55] LABS: Blood Urea Nitrogen 48 mg/dL (9-23)
[2024-12-22] MEDS: Vital AF 1.2 Cal 1 liter bottle GT SCH (09:31)
[2024-12-22] MEDS: ERTAPENEM SOD INJ 0.5 GM in SODIUM CHL 0.9% 50 ML IV SCH (09:58)
[2024-12-22 10:40] LABS: Phosphorus 2.5 mg/dL (2.4-5.1)
[2024-12-22] MEDS: D5W 5% 1,000 ML IV SCH (11:05)
--- NOTE | 2024-12-22 11:30 | DVHPN2 ---
Progress Note Date Seen: Dec 22, 2024 Resident Creating Document: PATRICIA BRITTON RESIDENT Medical Necessity Reason Pt with a Central, PICC or Fol: Yes The following are medically ne: Waterman Catheter Reason for waterman catheter: Strict I&O Subjective Review of Systems Patient is 74-year-old female with known medical history of liver cirrhosis who brought to the hospital for altered mental level of consciousness. Over the night of hospitalization patient's mental status continued to be worsened, early in the morning on 12/13/2024 patient started having hematemesis and patient was intubated in ER for airway protection and started on mechanical ventilation. GI consultation has been done for GI bleed and management of liver cirrhosis. Past Medical History Liver cirrhosis, esophageal varices, end-stage liver disease with the ascites , hepatic encephalopathy Past Surgical History History of paracentesis Patient seen and examined at bedside. No other complains. Swallow eval pending, more awake compare to yesterday. Objective vital signs Vital Sign Date Time Temp Pulse Resp B/P (MAP) Pulse Ox O2 Delivery O2 Flow Rate FiO2 12/22/24 09:29 136/81 12/22/24 08:20 93 12 97 Nasal Cannula* 2 28 12/22/24 04:00 99.2 99.2 Total Intake and Output 12/21/24 12/21/24 12/22/24 15:00 23:00 07:00 Intake Total 197.330 ml 856.143 ml 951.79 ml Output Total 730 ml 325 ml Balance 197.330 ml 126.143 ml 626.79 ml medications Current Medications Medications Dose Ordered Sig/Leti Route Start Time Stop Time Status Last Admin Dose Admin Ondansetron HCl 4 mg Q4HP PRN IV 12/13/24 00:15 12/21/24 19:59 4 MG Nitroglycerin 0.4 mg Q5MINP PRN SL 12/13/24 00:15 Ceftriaxone Sodium 50 ml @ 100 mls/hr DAILY@1999 IV 12/13/24 20:00 Cancel Pantoprazole Sodium 40 mg BID IV 12/16/24 22:00 12/22/24 09:44 40 MG Flumazenil 0.2 mg ONCE STAT IV 12/17/24 20:22 12/17/24 20:23 Cancel Lactulose 30 ml BID NG 12/19/24 22:00 12/22/24 09:35 30 ML Diagnostic Test (Pha) 1 strip ACHS 12/19/24 17:00 12/22/24 07:30 1 STRIP Dextrose 50 ml UD PRN IV 12/19/24 16:45 12/20/24 05:39 50 ML Dextrose 1,000 ml @ 50 mls/hr Q20H IV 12/20/24 10:00 Cancel Potassium Chloride 100 ml @ 100 mls/hr DAILY@1100 IV 12/20/24 11:00 12/22/24 10:59 100 MLS/HR Enteral Nutritional Formula 1,000 ml 50ML/HR GT 12/20/24 12:30 12/22/24 09:31 1,000 ML Morphine Sulfate 2 mg Q4HPRN PRN IV 12/21/24 16:00 12/21/24 20:00 2 MG Purified Water 300 ml Q4HR GT 12/21/24 22:00 12/22/24 10:35 300 ML Piperacillin Sod/ Tazobactam Sod 100 ml @ 25 mls/hr Q12HR IV 12/21/24 22:00 UNV Ertapenem 0.5 gm/ Sodium Chloride 50 ml @ 100 mls/hr DAILY IV 12/22/24 10:00 12/22/24 09:58 100 MLS/HR Norepinephrine Bitartrate 250 ml @ 1.875 mls/ hr Q24H IV 12/22/24 00:00 Dextrose 1,000 ml @ 50 mls/hr Q20H IV 12/22/24 10:45 UNV Examination General Appearance: extubated, more awake . Head Exam: Normal inspection Neck Exam: Normal inspection. Non-tender. Normal alignment Pulmonary/Respiratory: Chest non-tender. Clear bilateral breath sounds Cardiovascular/Chest: Regular rate and rhythm. No murmurs. No JVD. Peripheral Pulses: 2+ Radial (R). 2+ Radial (L). 2+ Pedal (R). 2+ Pedal (L) Abdominal Exam: Abdomen is soft, nontender. Positive bowel sounds. Ankle Exam: Negative ankle edema Lower extremities: 2+ lower extremity edema, chronic venous stasis. Neuro/Mental Status: Alert, not answering question in words. laboratory and microbiology Laboratory Tests 12/22/24 08:22 Test 12/22/24 08:22 Range/Units Serum Glucose 77 74-106 mg/dL Microbiology Date/Time Source Procedure Growth Status 12/16/24 18:17 Bronchial Washings Gram Stain - Final Complete 12/16/24 18:17 Respiratory Culture - Final Escherichia coli - ESBL Complete 12/13/24 12:54 Nose MRSA Screen - Final Complete 12/13/24 10:15 Ascities Fluid Gram Stain - Final Complete 12/13/24 10:15 Ascities Fluid Body Fluid Culture - Final Complete 12/13/24 06:00 Urine - [place] Urine Culture - Final Escherichia coli Complete 12/12/24 20:00 Blood Blood Culture - Final NO GROWTH AFTER 5 DAYS OF INCUBATION. Complete Problem List/Assessment/Plan Problem List/Assessment/Plan Liver cirrhosis Trace distal esophageal varices without bleeding Active upper GI bleed due to Severe gastropathy with gastritis Antral polyps of stomach Hepatic encephalopathy Esophageal variceal Moderate ascites Hypoalbuminemia Hyperammonemia Upper GI bleed Thrombocytopenia GER hemodynamically mediated UTI Plan/recommendation. Dr Foley EGD on 12/14/2024:1. Patient had trace distal esophageal varices without stigmata of bleeding from the varices 2. Patient had a moderate amount of old blood in the stomach after this was aspirated patient was noted to have underlying jictjwix-dy-nyozae gastropathy and gastritis with multiple areas of oozing from the stomach lining 3. There was a 1.5-2 cm pre-pyloric inflammatory antral polyp that was oozing, it was initially biopsied and then removed completely via hot snare polypectomy 4. There were three benign-appearing gastric polyps in the body of the that were seen and removed via hot snare polypectomy 5. Otherwise normal examination up to the 2nd and 3rd part of the duodenum Feeding via NG tube while pending for swallow eval, Vital AF 10 ml/hr, traget 30 ml/hr. Once swallow test pass , can start thick liquids. -continue Protonix 40 mg IV b.i.d., continue monitor H&H. -lactulose 30 mg q.6 via NG tube, ammonia is trending down, continue to monitor. -1 unit of PRBC given hemoglobin less than eight, with active GI bleed. 2 PRBC has been given yesterday. -administration IV albumin given after paracentesis: Removed fluid around 6.9 L. -IV antibiotics: Paracentesis fluid analysis showed WBC less than 200, less likely spontaneous bacterial peritonitis. -closely monitor fluid and electrolyte status, maintain map greater than 65. Can initiate vasopressor Levophed if needed. -we will continue to monitor and following up. Plan discussed with: Patient, Other (RN) My Orders My Orders Orders - PATRICIA BRITTON Procedure Category Date Status Time * Swallow Request ST 12/22/24 Transmitted 08:36 Dietary Evaluation Review Comments: 1. Considering high propofol requirements, recommend EN initiation with trickle-tube feeds of Vital HP @ 15 ml/hr 2. Provide minimal free water flushes for tube patency of 30 ml Q6 hrs (120 ml total) or per MD discretion 3. Monitor BMP/lytes and replete to WNL/PRN Expected Outcomes/Goals: Improved nutritional status PATRICIA BRITTON RESIDENT Dec 22, 2024 11:30
--- NOTE | 2024-12-22 16:26 | DVHPN2 ---
Progress Note Date Seen: Dec 22, 2024 Medical Necessity Reason Pt with a Central, PICC or Fol: Yes The following are medically ne: Waterman Catheter Reason for waterman catheter: Strict I&O Subjective Patient reports: Other Review of Systems: Deferred Objective vital signs Vital Sign Date Time Temp Pulse Resp B/P (MAP) Pulse Ox O2 Delivery O2 Flow Rate FiO2 12/22/24 16:08 12 96 Nasal Cannula* 2 28 12/22/24 15:35 94 12/22/24 15:23 79/53 12/22/24 12:00 98.1 98.1 Total Intake and Output 12/21/24 12/21/24 12/22/24 15:00 23:00 07:00 Intake Total 197.330 ml 856.143 ml 951.79 ml Output Total 730 ml 325 ml Balance 197.330 ml 126.143 ml 626.79 ml medications Current Medications Medications Dose Ordered Sig/Leti Route Start Time Stop Time Status Last Admin Dose Admin Ondansetron HCl 4 mg Q4HP PRN IV 12/13/24 00:15 12/21/24 19:59 4 MG Nitroglycerin 0.4 mg Q5MINP PRN SL 12/13/24 00:15 Ceftriaxone Sodium 50 ml @ 100 mls/hr DAILY@2000 IV 12/13/24 20:00 Cancel Pantoprazole Sodium 40 mg BID IV 12/16/24 22:00 12/22/24 09:44 40 MG Flumazenil 0.2 mg ONCE STAT IV 12/17/24 20:22 12/17/24 20:23 Cancel Lactulose 30 ml BID NG 12/19/24 22:00 12/22/24 09:35 30 ML Diagnostic Test (Pha) 1 strip ACHS 12/19/24 17:00 12/22/24 11:55 1 STRIP Dextrose 50 ml UD PRN IV 12/19/24 16:45 12/20/24 05:39 50 ML Dextrose 1,000 ml @ 50 mls/hr Q20H IV 12/20/24 10:00 Cancel Potassium Chloride 100 ml @ 100 mls/hr DAILY@1100 IV 12/20/24 11:00 12/22/24 10:59 100 MLS/HR Enteral Nutritional Formula 1,000 ml 50ML/HR GT 12/20/24 12:30 12/22/24 09:31 1,000 ML Morphine Sulfate 2 mg Q4HPRN PRN IV 12/21/24 16:00 12/21/24 20:00 2 MG Purified Water 300 ml Q4HR GT 12/21/24 22:00 12/22/24 14:17 300 ML Piperacillin Sod/ Tazobactam Sod 100 ml @ 25 mls/hr Q12HR IV 12/21/24 22:00 UNV Ertapenem 0.5 gm/ Sodium Chloride 50 ml @ 100 mls/hr DAILY IV 12/22/24 10:00 12/22/24 09:58 100 MLS/HR Norepinephrine Bitartrate 250 ml @ 1.875 mls/ hr Q24H IV 12/22/24 00:00 Dextrose 1,000 ml @ 50 mls/hr Q20H IV 12/22/24 10:45 12/22/24 11:05 50 MLS/HR Examination: GENERAL:Abnormal, LUNGS:Abnormal, MSK:Abnormal laboratory and microbiology Laboratory Tests 12/22/24 08:22 Test 12/22/24 08:22 Range/Units Serum Glucose 77 74-106 mg/dL Microbiology Date/Time Source Procedure Growth Status 12/16/24 18:17 Bronchial Washings Gram Stain - Final Complete 12/16/24 18:17 Respiratory Culture - Final Escherichia coli - ESBL Complete 12/13/24 12:54 Nose MRSA Screen - Final Complete 12/13/24 10:15 Ascities Fluid Gram Stain - Final Complete 12/13/24 10:15 Ascities Fluid Body Fluid Culture - Final Complete 12/13/24 06:00 Urine - [place] Urine Culture - Final Escherichia coli Complete 12/12/24 20:00 Blood Blood Culture - Final NO GROWTH AFTER 5 DAYS OF INCUBATION. Complete Problem List/Assessment/Plan Problem List/Assessment/Plan Acute kidney injury superimposed Chronic Kidney Disease secondary hemodynamic mediated, FeNa < 1% Hepatorenal syndrome Acute respiratory failure, intubated on ventilator Hepatic encephalopathy Urinary tract infection GI bleeding Liver cirrhosis Ascites Hypoalbuminemia Pancytopenia hypernatremia hypokalemia recs d5w iv for Na correction .Stop spironolactone kcl prn replace free water for sodium correction Plan discussed with: Daughter My Orders My Orders Orders - BRENDA HANSON MD Procedure Category Date Status Time Free Water PHA 12/21/24 In Process 22:00 D5w 5% (Dextrose 5%) PHA 12/22/24 In Process 10:45 Dietary Evaluation Review Comments: 1. Considering high propofol requirements, recommend EN initiation with trickle-tube feeds of Vital HP @ 15 ml/hr 2. Provide minimal free water flushes for tube patency of 30 ml Q6 hrs (120 ml total) or per MD discretion 3. Monitor BMP/lytes and replete to WNL/PRN Expected Outcomes/Goals: Improved nutritional status BRENDA HANSON MD Dec 22, 2024 16:26
--- NOTE | 2024-12-22 17:38 | DVHPN2 ---
Subjective This is a 74-year-old female with a known history of end-stage liver disease, hepatic encephalopathy who initially presented to the hospital with altered mental status eventually found to have hematemesis in the ER intubated for airway protection. Patient is currently extubated on continuous O2 supplementation by nasal cannula, patient's mental status is continues to improve. Reviewed: Care Plan Changes from previous H/P or p: No Changes Objective Vitals Vital Signs Date Time Temp Pulse Resp B/P (MAP) Pulse Ox O2 Delivery O2 Flow Rate FiO2 12/22/24 16:08 12 96 Nasal Cannula* 2 28 12/22/24 15:35 94 12/22/24 15:23 79/53 12/22/24 12:00 98.1 98.1 Intake/Output Intake and Output 12/22/24 07:00 Intake Total 2005.263 ml Output Total 1055 ml Balance 950.263 ml Intake Oral 1540 ml IV Total 242.263 ml Tube Feeding 223 ml Output Urine Total 555 ml Stool Total 500 ml Exam HEENT pupils are reactive Neck is supple CVS S1-S2 regular rate and rhythm Respiratory diminished breath sounds bases GI positive bowel sounds positive ascites Extremity trace edema PROCESS [employer]ATION [employer]INE[employer] patient minimally following commands Medications Current Medications Medications Dose Ordered Sig/Leti Route Start Time Stop Time Status Last Admin Dose Admin Ondansetron HCl 4 mg Q4HP PRN IV 12/13/24 00:15 12/21/24 19:59 4 MG Nitroglycerin 0.4 mg Q5MINP PRN SL 12/13/24 00:15 Ceftriaxone Sodium 50 ml @ 100 mls/hr DAILY@2000 IV 12/13/24 20:00 Cancel Pantoprazole Sodium 40 mg BID IV 12/16/24 22:00 12/22/24 09:44 40 MG Flumazenil 0.2 mg ONCE STAT IV 12/17/24 20:22 12/17/24 20:23 Cancel Lactulose 30 ml BID NG 12/19/24 22:00 12/22/24 09:35 30 ML Diagnostic Test (Pha) 1 strip ACHS 12/19/24 17:00 12/22/24 11:55 1 STRIP Dextrose 50 ml UD PRN IV 12/19/24 16:45 12/20/24 05:39 50 ML Dextrose 1,000 ml @ 50 mls/hr Q20H IV 12/20/24 10:00 Cancel Potassium Chloride 100 ml @ 100 mls/hr DAILY@1100 IV 12/20/24 11:00 12/22/24 10:59 100 MLS/HR Enteral Nutritional Formula 1,000 ml 50ML/HR GT 12/20/24 12:30 12/22/24 09:31 1,000 ML Morphine Sulfate 2 mg Q4HPRN PRN IV 12/21/24 16:00 12/21/24 20:00 2 MG Purified Water 300 ml Q4HR GT 12/21/24 22:00 12/22/24 14:17 300 ML Piperacillin Sod/ Tazobactam Sod 100 ml @ 25 mls/hr Q12HR IV 12/21/24 22:00 UNV Ertapenem 0.5 gm/ Sodium Chloride 50 ml @ 100 mls/hr DAILY IV 12/22/24 10:00 12/22/24 09:58 100 MLS/HR Norepinephrine Bitartrate 250 ml @ 1.875 mls/ hr Q24H IV 12/22/24 00:00 Dextrose 1,000 ml @ 50 mls/hr Q20H IV 12/22/24 10:45 12/22/24 11:05 50 MLS/HR Laboratory Results Laboratory Tests 12/22/24 08:22 Chemistry Test 12/22/24 08:22 12/22/24 08:29 Calcium Level 8.6 mg/dL (8.7-10.4) L Magnesium Level 2.0 mg/dL (1.6-2.6) Phosphorus Level 2.5 mg/dL (2.4-5.1) Urinalysis Test 12/13/24 06:00 Urine Color Yellow (Yellow) Urine Clarity Turbid (Clear) H Urine pH 5.5 (5.0-9.0) Urine Specific [place] 1.016 (1.001-1.035) Urine Protein Trace (Negative) H Urine Ketones Negative (Negative) Urine Blood Trace /uL (Negative) H Urine Nitrite Negative (Negative) Urine Bilirubin Negative (Negative) Urine Urobilinogen Normal mg/dL (Negative) Urine Leukocyte Esterase 3+ /uL (Negative) Urine RBC 2 /hpf (0 - 4) Urine WBC Clumps Present /hpf (None Seen) Urine Microscopic WBC 177 /HPF (0-5) H Urine Squamous Epithelial Cells Few /hpf (<5) Urine Bacteria Many /hpf (None Seen) H Urine Hyaline Casts Few /lpf (0 - 2) Urine Mucus Few (None Seen) Urine Creatinine 134.12 mg/dL (30.0-125.0) H Urine Protein/Creatinine Ratio 0.21 Urine Sodium < 10 mmol/L (40-220) L Urine Glucose Normal mg/dL (Normal) Urine Total Protein 27.9 mg/dL (1-14) H Microbiology Microbiology Date/Time Source Procedure Growth Status 12/16/24 18:17 Bronchial Washings Gram Stain - Final Complete 12/16/24 18:17 Respiratory Culture - Final Escherichia coli - ESBL Complete 12/13/24 12:54 Nose MRSA Screen - Final Complete 12/13/24 10:15 Ascities Fluid Gram Stain - Final Complete 12/13/24 10:15 Ascities Fluid Body Fluid Culture - Final Complete 12/13/24 06:00 Urine - [place] Urine Culture - Final Escherichia coli Complete 12/12/24 20:00 Blood Blood Culture - Final NO GROWTH AFTER 5 DAYS OF INCUBATION. Complete Assessment/Plan Assessment/Plan 74-year-old female with known history of end-stage liver disease, who initially presented to the hospital with a hematemesis altered mental status found to have 1. Acute hypoxic respiratory failure status post intubation, status post extubation currently on O2 supplementation 2. Upper GI bleed with esophageal varices and severe gastropathy status post EGD, status post biopsy of the gastric polyp and snare polypectomy 3. Hepatic encephalopathy, slowly improving 4. ESBL pneumonia 5. ESBL UTI 6. Acute kidney injury suspected secondary to vasomotor nephropathy 7. Moderate ascites status post paracentesis -continue Protonix lactulose as tolerated follow up with GI recommendation follow up Pulmonary recommendations Continue antibiotics follow up Infectious Disease recommendations. Plan discussed with: Patient, Other My Orders Orders - JUMANA MANCILLA MD Procedure Category Date Status Time Norepinephrine 8 PHA 12/22/24 In Process Mg/250ml Kit 00:00 Date of Service: Dec 22, 2024 Billing Provider: JUMANA MANCILLA MD Common Visit Codes: NOT BILLABLE JUMANA MANCILLA MD Dec 22, 2024 17:38
--- NOTE | 2024-12-22 22:38 | DVHNC2 ---
Procedure - PARACENTESIS PROCEDURE NOTE: INDICATION: ASCITES PROCEDURE PROSPECTING OBSERVER: DR SCOTT NELSON ULTRASOUND USED TO [facility] LOCATION: YES CONSENT: CONSENT WAS OBTAINED FROM [facility] PRIOR TO THE PROCEDURE. INDICATIONS, RISKS, AND BENEFITS WERE EXPLAINED AT LENGTH. TIME OUT TIME: 2220 PM PATIENT MEDICATIONS AND ALLERGIES REVIEWED. THE RISKS AND BENEFITS OF THE PROCEDURE AND THE SEDATION OPTIONS AND RISK WERE DISCUSSED WITH THE PATIENT'S HEALTHCARE PROXY. ALL QUESTIONS WERE ANSWERED AND INFORMED CONSENT WAS OBTAINED. PATIENT IDENTIFICATION AND PROPOSED PROCEDURE WERE VERIFIED PRIOR TO THE PROCEDURE BY THE PHYSICIAN, AND A NURSE IN THE PATIENT'S ROOM. THE HEART RATE, RESPIRATORY RATE, OXYGEN SATURATIONS, BLOOD PRESSURE, ADEQUACY OF PULMONARY VENTILATION, AND RESPONSE TO CARE WERE MONITORED THROUGHOUT THE PROCEDURE. THE PHYSICAL STATUS OF THE PATIENT WAS REASSESSED AFTER THE PROCEDURE. PROCEDURE SUMMARY: A TIME-OUT WAS PERFORMED. MY HANDS WERE WASHED IMMEDIATELY PRIOR TO THE PROCEDURE. I WORE A SURGICAL CAP, MASK WITH PROTECTIVE EYEWEAR, STERILE GOWN AND STERILE GLOVES THROUGHOUT THE PROCEDURE. THE AREA WAS CLEANSED AND DRAPED IN USUAL STERILE FASHION USING CHLORHEXIDINE SCRUB. ANESTHESIA WAS ACHIEVED WITH 1% LIDOCAINE. THE RIGHT LOWER QUADRANT OF THE ABDOMEN WAS PREPPED AND DRAPED IN A STERILE FASHION USING CHLORHEXIDINE SCRUB. 1% LIDOCAINE WAS USED TO NUMB THE SKIN, SOFT TISSUE AND PERITONEUM. THE PARACENTESIS CATHETER WAS INSERTED AND ADVANCED WITH NEGATIVE PRESSURE UNTIL SHARONDA COLORED FLUID WAS ASPIRATED. APPROXIMATELY 60 ML OF ASCITIC FLUID WAS COLLECTED AND SENT FOR LABORATORY ANALYSIS. THE CATHETER WAS THEN CONNECTED TO THE VACCUTAINER AND 4.5 LITERS OF ADDITIONAL ASCITIC FLUID WERE DRAINED. THE CATHETER WAS REMOVED AND NO LEAKING WAS NOTED. A BAND AID WAS PLACED OVER THE PUNCTURE WOUND. THE PATIENT TOLERATED THE PROCEDURE WELL WITHOUT ANY IMMEDIATE COMPLICATIONS. ESTIMATED BLOOD LOSS WAS LESS THAN 5 ML. CPT 60121 SCOTT NELSON MD Dec 22, 2024 22:38
--- NOTE | 2024-12-22 22:48 | DVHPN2 ---
Progress Note - Dictate Date Seen: Dec 22, 2024 Medical Necessity Reason Pt with a Central, PICC or Fol: Yes The following are medically ne: Waterman Catheter Reason for waterman catheter: Strict I&O Subjective Patient seen and examined at bedside. Remains on supplemental oxygen Overnight events reviewed. vital signs Vital Sign Date Time Temp Pulse Resp B/P (MAP) Pulse Ox O2 Delivery O2 Flow Rate FiO2 12/22/24 19:00 86 10 118/73 (88) 12/22/24 18:00 97 12/22/24 18:00 Nasal Cannula* 2 28 12/22/24 16:15 98.2 98.2 Total Intake and Output 12/21/24 12/21/24 12/22/24 15:00 23:00 07:00 Intake Total 197.330 ml 856.143 ml 951.79 ml Output Total 730 ml 325 ml Balance 197.330 ml 126.143 ml 626.79 ml medications Current Medications Medications Dose Ordered Sig/Leti Route Start Time Stop Time Status Last Admin Dose Admin Ondansetron HCl 4 mg Q4HP PRN IV 12/13/24 00:15 12/21/24 19:59 4 MG Nitroglycerin 0.4 mg Q5MINP PRN SL 12/13/24 00:15 Ceftriaxone Sodium 50 ml @ 100 mls/hr DAILY@2000 IV 12/13/24 20:00 Cancel Pantoprazole Sodium 40 mg BID IV 12/16/24 22:00 12/22/24 09:44 40 MG Flumazenil 0.2 mg ONCE STAT IV 12/17/24 20:22 12/17/24 20:23 Cancel Lactulose 30 ml BID NG 12/19/24 22:00 12/22/24 09:35 30 ML Diagnostic Test (Pha) 1 strip ACHS 12/19/24 17:00 12/22/24 17:58 1 STRIP Dextrose 50 ml UD PRN IV 12/19/24 16:45 12/20/24 05:39 50 ML Dextrose 1,000 ml @ 50 mls/hr Q20H IV 12/20/24 10:00 Cancel Potassium Chloride 100 ml @ 100 mls/hr DAILY@1100 IV 12/20/24 11:00 12/22/24 10:59 100 MLS/HR Enteral Nutritional Formula 1,000 ml 50ML/HR GT 12/20/24 12:30 12/22/24 09:31 1,000 ML Morphine Sulfate 2 mg Q4HPRN PRN IV 12/21/24 16:00 12/21/24 20:00 2 MG Purified Water 300 ml Q4HR GT 12/21/24 22:00 12/22/24 14:17 300 ML Piperacillin Sod/ Tazobactam Sod 100 ml @ 25 mls/hr Q12HR IV 12/21/24 22:00 UNV Ertapenem 0.5 gm/ Sodium Chloride 50 ml @ 100 mls/hr DAILY IV 12/22/24 10:00 12/22/24 09:58 100 MLS/HR Norepinephrine Bitartrate 250 ml @ 1.875 mls/ hr Q24H IV 12/22/24 00:00 12/22/24 17:59 1.875 MLS/HR Dextrose 1,000 ml @ 50 mls/hr Q20H IV 12/22/24 10:45 12/22/24 11:05 50 MLS/HR objective Gen.: Patient lying in bed in no apparent distress. On supplemental oxygen. Head: Normocephalic, atraumatic. Eyes: EOMI/PERRLA. Ears: Normal hearing. Normal anatomy. Neck/trachea: Trachea midline, supple. Nose: Normal external anatomy. Mouth: Moist mucous membranes. Chest: Decreased air entry bilaterally. No wheezing or rhonchi. Cardiovascular: Positive S1, positive S2. Regular rate and rhythm. Abdomen: Positive bowel sounds in all 4 quadrants. Soft, non-tender, non- distended. : Deferred. Rectal: Deferred. Skin: Warm, dry. Intact. Extremities: 2+ radial pulses bilaterally. No lower extremity edema. Neuro: Awake, alert, oriented x3. No gross motor or sensory deficits. Cranial nerves II through XII intact. Gait not assessed laboratory and microbiology Laboratory Tests 12/22/24 08:22 Test 12/22/24 08:22 Range/Units Serum Glucose 77 74-106 mg/dL Assessment/Plan Impression: Acute hypoxic respiratory failure Hepatic encephalopathy Hyperammonemia Liver cirrhosis Large volume ascites Thrombocytopenia Anemia, chronic Acute on chronic kidney disease Lactic acidosis Metabolic acidosis Events: Remains on 2 LPM NC supplemental oxygen Taper O2 as tolerated Patient is more awake, alert, following commands Swallow evaluation Head of bed elevation Aspiration precautions Supportive care Continue abx Continue lactulose. On pressors for hemodynamic support On Levophed 1 mcg/min Titrate to keep MAP above 65 mmHg/SBP above 90 mmHg. Hemoglobin stable - continue to monitor Protonix BID Monitor renal function Monitor electrolytes. Supplement as necessary. Potassium supplementation Nephrology recommendations appreciated. Tube feeds for nutritional support Limited abdominal ultrasound will be performed to assess if ascites amenable for paracentesis. Labs and imaging reviewed. Rest of plan as noted below. Plan: s/p extubation on 12/17/24 Supplemental oxygen Titrate to keep O2 sats above 92%. Off sedation Pressors as necessary for hemodynamic support. Titrate to keep MAP above 65 mmHg/SBP above 90 mmHg. Continue antibiotics. Follow up cultures Bronchial cultures grew ESBL E.coli Monitor renal function due to acute kidney injury. Monitor electrolytes. Supplement as necessary. Monitor ins and outs Nephrology recommendations appreciated. Metabolic acidosis - received one ampule of bicarbonate on 12/13. Status post paracentesis, albumin given. Nutritional support. Accu-Cheks, ISS. GI/DVT prophylaxis. Condition: Critical Prognosis: Guarded given multiple comorbidities. Rest of plan per hospitalist and other consultants. A total of 35 minutes of critical care time was spent reviewing the patient record, examining the patient, making a diagnostic and therapeutic plan, discussing this plan with the medical personnel, following up on diagnostic studies and following the patient for clinical stability excluding any and all procedures. At least 50% of this time was spent in direct, [id number] contact. Thank you MASSIEL Arias for allowing me to participate in this patient's care. Further recommendations will depend on patient's clinical course. Please do not hesitate to contact me if you have any questions or concerns. This medical document was created using an electronic medical record system with [employer] dictation system. Although this document has been carefully reviewed, there may still be some phonetic and typographical errors. These areas are purely typographical due to imperfections of the software programs, and do not reflect any compromise in the patient's medical care. Dietary Evaluation Review Comments: 1. Considering high propofol requirements, recommend EN initiation with trickle-tube feeds of Vital HP @ 15 ml/hr 2. Provide minimal free water flushes for tube patency of 30 ml Q6 hrs (120 ml total) or per MD discretion 3. Monitor BMP/lytes and replete to WNL/PRN Expected Outcomes/Goals: Improved nutritional status Plan discussed with: Other (GLADYS Barba) Critical Care Time(min): 35 SCOTT NELSON MD Dec 22, 2024 22:48
--- NOTE | 2024-12-22 23:50 | DVHPN2 ---
Consult Progress Note Date Seen: Dec 22, 2024 Subjective Patient reports: Other (underwent parasynthesis and is still altered but following simple commands , 60ccs of acidic fluid was collected for analysis . condainer collected an additional 4.5 liters , abdomen is no longer distended ,catheter site is clean) Objective vital signs Vital Sign Date Time Temp Pulse Resp B/P (MAP) Pulse Ox O2 Delivery O2 Flow Rate FiO2 12/22/24 19:00 86 10 118/73 (88) 12/22/24 18:00 97 12/22/24 18:00 Nasal Cannula* 2 28 12/22/24 16:15 98.2 98.2 Total Intake and Output 12/21/24 12/21/24 12/22/24 15:00 23:00 07:00 Intake Total 197.330 ml 856.143 ml 951.79 ml Output Total 730 ml 325 ml Balance 197.330 ml 126.143 ml 626.79 ml medications Current Medications Medications Dose Ordered Sig/Leti Route Start Time Stop Time Status Last Admin Dose Admin Ondansetron HCl 4 mg Q4HP PRN IV 12/13/24 00:15 12/21/24 19:59 4 MG Nitroglycerin 0.4 mg Q5MINP PRN SL 12/13/24 00:15 Ceftriaxone Sodium 50 ml @ 100 mls/hr DAILY@2000 IV 12/13/24 20:00 Cancel Pantoprazole Sodium 40 mg BID IV 12/16/24 22:00 12/22/24 23:24 40 MG Flumazenil 0.2 mg ONCE STAT IV 12/17/24 20:22 12/17/24 20:23 Cancel Lactulose 30 ml BID NG 12/19/24 22:00 12/22/24 23:24 30 ML Diagnostic Test (Pha) 1 strip ACHS 12/19/24 17:00 12/22/24 23:24 1 STRIP Dextrose 50 ml UD PRN IV 12/19/24 16:45 12/20/24 05:39 50 ML Dextrose 1,000 ml @ 50 mls/hr Q20H IV 12/20/24 10:00 Cancel Potassium Chloride 100 ml @ 100 mls/hr DAILY@1100 IV 12/20/24 11:00 12/22/24 10:59 100 MLS/HR Enteral Nutritional Formula 1,000 ml 50ML/HR GT 12/20/24 12:30 12/22/24 09:31 1,000 ML Morphine Sulfate 2 mg Q4HPRN PRN IV 12/21/24 16:00 12/21/24 20:00 2 MG Purified Water 300 ml Q4HR GT 12/21/24 22:00 12/22/24 23:24 300 ML Piperacillin Sod/ Tazobactam Sod 100 ml @ 25 mls/hr Q12HR IV 12/21/24 22:00 UNV Ertapenem 0.5 gm/ Sodium Chloride 50 ml @ 100 mls/hr DAILY IV 12/22/24 10:00 12/22/24 09:58 100 MLS/HR Norepinephrine Bitartrate 250 ml @ 1.875 mls/ hr Q24H IV 12/22/24 00:00 12/22/24 17:59 1.875 MLS/HR Dextrose 1,000 ml @ 50 mls/hr Q20H IV 12/22/24 10:45 12/22/24 11:05 50 MLS/HR Physical Exam: General: Patient is obtunded, only responsive to name. Neck: Supple. No masses. HEENT: PERRL. Normal lids and conjunctiva. Moist mucous membranes. Oropharynx without lesions, exudates or excessive erythema. Normal appearance of the external aspects of the nose and ears. Heart: Regular rhythm, normal rate. No murmur. No lower extremity edema. Lungs: Normal respiratory effort. Clear to auscultation bilaterally. No wheezes. No crackles. Abdomen: Distended abdomen with positive fluid wave. Msk: Diffuse edema in lower extremities. Skin: Mild jaundice, bruising on face. Neuro: Altered mental status; only alert to name. Psych: Unable to assess due to altered mental status. Oriented to person, place, time, and situation: No. laboratory and microbiology Laboratory Tests 12/22/24 08:22 Test 12/22/24 08:22 Range/Units Serum Glucose 77 74-106 mg/dL Problem List/Assessment/Plan Problems(with codes): (1) Sputum culture positive for ESBL E. coli (2) Pneumonia (3) Hypotension (4) Thrombocytopenia (5) Pancytopenia (6) Liver cirrhosis (7) Ascites (8) Hyperammonemia Problem List/Assessment/Plan ID Problem List: - Decompensated liver cirrhosis - Hepatic encephalopathy - Esophageal varices - ESBL E. coli pneumonia - E. coli UTI - Acute hypoxic respiratory failure - Septic shock - GER vs. CKD - Thrombocytopenia - Anemia - Diabetes mellitus - Diarrhea - Altered mental status - Anasarca Assessment This is a 74 y.o. female with a past medical history of liver cirrhosis and diabetes mellitus, who presents with bloody vomiting and altered mental status. Patient was only alert to her name upon admission with an elevated ammonia level of 197. She exhibited large volume ascites, anemia (Hb 9.6), thrombocytopenia (platelets 75), and leukopenia (WBC 2.7). Imaging revealed a cirrhotic liver with large volume ascites, esophageal varices, and evidence of pneumonia. She underwent upper endoscopy revealing trace distal esophageal varices without stigmata of bleeding, moderate to severe gastropathy and gastritis with multiple areas of oozing, and removal of gastric polyps via hot snare polypectomy. BAL cultures are growing ESBL E. coli sensitive to ertapenem, gentamicin, meropenem, and Zosyn; resistant to cefepime. 12/18: sodium is 150 , BUN is 59 which is likely contributing to patients altered mental status 12/19: responding to antibiotic , diarrhea is likely related to refaxmen use and trying to improve mentation with adequate bowel movements 12/20: sodium is 153 12/21: sodium is 154 12/22: peritoneal fluid analysis shows 5pnms 29 wbcs which is not consistent with sbp Plan: - follow up on peritoneal cultures - continue ertapenem to reduce sodium for an additional 7 day course - Monitor renal function; defer management of GER to nephrology. - Continue aspiration precautions; keep patient upright at 30 degrees. - Follow up on blood cultures; low concern for SBP at this time. - Provide pressor support as needed to maintain MAP >65 mmHg. - Fluid restriction due to liver cirrhosis and recurrent ascites. - Defer management of hepatic encephalopathy to GI team and primary care team. - Monitor electrolyte levels; sodium is slowly rising. - Continue rifaximin for hepatic encephalopathy. - Monitor for signs of recurrent pneumonia; repeat sputum cultures and chest X- ray if needed. Authorized and Performed by: Anai Ureña Total critical care time: Approximately 76 minutes Due to a high probability of clinically significant, life threatening deterioration, the patient required my highest level of preparedness to intervene emergently and I personally spent this critical care time directly and personally managing the patient. This critical care time included obtaining a history; examining the patient; pulse oximetry; ordering and review of studies; arranging urgent treatment with development of a management plan; evaluation of patient's response to treatment; frequent reassessment; and, discussions with other providers. This critical care time was performed to assess and manage the high probability of imminent, life-threatening deterioration that could result in multi-organ failure. It was exclusive of separately billable procedures and treating other patients and teaching time. Isolation Precautions: contact ESBL Plan discussed with: Other Dietary Evaluation Review Comments: 1. Considering high propofol requirements, recommend EN initiation with trickle-tube feeds of Vital HP @ 15 ml/hr 2. Provide minimal free water flushes for tube patency of 30 ml Q6 hrs (120 ml total) or per MD discretion 3. Monitor BMP/lytes and replete to WNL/PRN Expected Outcomes/Goals: Improved nutritional status ANAI UREÑA MD Dec 22, 2024 23:50
[2024-12-23] VITALS (92 sets, daily range): BP systolic 88–145; BP diastolic 46–105; PULSE 50–107; RESP 7–18; TEMP 94.3–97.1; O2SAT 54–100
[2024-12-23 01:18] LABS: Body Fluid Polymorphonuclear 20 % (0-25); Body Fluid Red Blood Cells 1121 CUMM (0-2000); Body Fluid White Blood Cells 200 CUMM (0-200)
[2024-12-23 10:39] LABS: Basophils # (auto) 0 10 ^3/uL (0-0.2); Eosinophils # (auto) 0 10 ^3/uL (0-0.8); Hemoglobin 9.7 g/dL (12.2-16.2); Lymphocytes # (auto) 0.6 10 ^3/uL (0.4-5.4); Monocytes # (auto) 0.3 10 ^3/uL (0-1.3); Neutrophils # (auto) 1.8 10 ^3/uL (1.6-8.6); White Blood Cell 2.8 10^3/uL (4.4-10.8)
[2024-12-23 10:43] LABS: Eosinophils % (auto) 0.2 % (0.0-7.0); Hematocrit 29.4 % (36.0-46.0); Lymphocytes % (auto) 22.9 % (10.0-50.0); Mean Corpuscular Hemoglobin 30.6 pg (28.0-32.0); Mean Corpuscular Hgb Conc. 32.9 g/dL (32.0-36.0); Monocytes % (auto) 9.7 % (0.0-12.0); Neutrophils % (auto) 66.2 % (37.0-80.0); Nucleated Red Blood Cells % 0.5 %; Platelet Count (auto) 42 10^3/uL (140-450); Red Blood Cells 3.17 10^6/uL (4.0-5.20)
[2024-12-23 10:46] LABS: Red Cell Distribution Width 29.6 % (11.8-14.3)
[2024-12-23 11:04] LABS: Alanine Aminotransferase 19 U/L (7-40); Albumin 2.4 g/dL (3.2-4.8); Alkaline Phosphatase 66 U/L (46-116); Anion Gap 8 (5-15); Aspartate Aminotransferase 38 U/L (13-40); BUN/Creatinine Ratio 19.8 (10.0-20.0); Bilirubin, Total 0.7 mg/dL (0.2-1.0); Blood Urea Nitrogen 41 mg/dL (9-23); Calcium 8.3 mg/dL (8.7-10.4); Carbon Dioxide 21 mmol/L (20-31); Chloride 118 mmol/L (98-107); Glucose 111 mg/dL (74-106); Potassium 3.7 mmol/L (3.5-5.1); Sodium 147 mmol/L (136-145)
[2024-12-23 11:05] LABS: Anisocytosis Moderate; Ovalocytes FEW; Total Protein 4.2 g/dL (5.7-8.2)
[2024-12-23 11:06] LABS: Large Platelets FEW; Platelet Estimate Decrea
--- NOTE | 2024-12-23 12:38 | DVHPN2 ---
Progress Note Date Seen: Dec 23, 2024 Medical Necessity Reason Pt with a Central, PICC or Fol: Yes The following are medically ne: Waterman Catheter Reason for waterman catheter: Strict I&O Subjective Patient reports: No new complaints Other Systems: Patient seen and examined by myself today in follow-up Objective vital signs Vital Sign Date Time Temp Pulse Resp B/P (MAP) Pulse Ox O2 Delivery O2 Flow Rate FiO2 12/23/24 07:00 58 8 106/59 (75) 100 12/23/24 06:00 Nasal Cannula* 2 28 12/23/24 00:00 96.9 96.9 Total Intake and Output 12/22/24 12/22/24 12/23/24 15:00 23:00 07:00 Intake Total 416.875 ml 1489.875 ml 1310 ml Output Total 625 ml 350 ml Balance 416.875 ml 864.875 ml 960 ml medications Current Medications Medications Dose Ordered Sig/Leti Route Start Time Stop Time Status Last Admin Dose Admin Ondansetron HCl 4 mg Q4HP PRN IV 12/13/24 00:15 12/21/24 19:59 4 MG Nitroglycerin 0.4 mg Q5MINP PRN SL 12/13/24 00:15 Ceftriaxone Sodium 50 ml @ 100 mls/hr DAILY@2000 IV 12/13/24 20:00 Cancel Pantoprazole Sodium 40 mg BID IV 12/16/24 22:00 12/23/24 10:38 40 MG Flumazenil 0.2 mg ONCE STAT IV 12/17/24 20:22 12/17/24 20:23 Cancel Lactulose 30 ml BID NG 12/19/24 22:00 12/23/24 10:39 30 ML Diagnostic Test (Pha) 1 strip ACHS 12/19/24 17:00 12/23/24 12:31 1 STRIP Dextrose 50 ml UD PRN IV 12/19/24 16:45 12/20/24 05:39 50 ML Dextrose 1,000 ml @ 50 mls/hr Q20H IV 12/20/24 10:00 Cancel Potassium Chloride 100 ml @ 100 mls/hr DAILY@1100 IV 12/20/24 11:00 12/23/24 12:32 100 MLS/HR Enteral Nutritional Formula 1,000 ml 50ML/HR GT 12/20/24 12:30 12/22/24 09:31 1,000 ML Morphine Sulfate 2 mg Q4HPRN PRN IV 12/21/24 16:00 12/21/24 20:00 2 MG Purified Water 300 ml Q4HR GT 12/21/24 22:00 12/23/24 10:40 300 ML Piperacillin Sod/ Tazobactam Sod 100 ml @ 25 mls/hr Q12HR IV 12/21/24 22:00 UNV Ertapenem 0.5 gm/ Sodium Chloride 50 ml @ 100 mls/hr DAILY IV 12/22/24 10:00 12/23/24 10:40 100 MLS/HR Norepinephrine Bitartrate 250 ml @ 1.875 mls/ hr Q24H IV 12/22/24 00:00 12/22/24 17:59 1.875 MLS/HR Dextrose 1,000 ml @ 50 mls/hr Q20H IV 12/22/24 10:45 12/23/24 08:35 50 MLS/HR Midodrine 10 mg TID@0600,1200,1800 PO 12/23/24 18:00 UNV Octreotide Acetate 100 mcg TID SUBCUT 12/23/24 14:00 UNV Examination: LUNGS:Normal, CVS:Normal, MSK:Normal laboratory and microbiology Laboratory Tests 12/23/24 10:15 Test 12/23/24 10:15 Range/Units Serum Glucose 111 H 74-106 mg/dL Microbiology Date/Time Source Procedure Growth Status 12/16/24 18:17 Bronchial Washings Gram Stain - Final Complete 12/16/24 18:17 Respiratory Culture - Final Escherichia coli - ESBL Complete 12/13/24 12:54 Nose MRSA Screen - Final Complete 12/13/24 10:15 Ascities Fluid Gram Stain - Final Complete 12/13/24 10:15 Ascities Fluid Body Fluid Culture - Final Complete 12/13/24 06:00 Urine - [place] Urine Culture - Final Escherichia coli Complete 12/12/24 20:00 Blood Blood Culture - Final NO GROWTH AFTER 5 DAYS OF INCUBATION. Complete Problem List/Assessment/Plan Problem List/Assessment/Plan Acute kidney injury superimposed Chronic Kidney Disease secondary hemodynamic mediated, FeNa < 1% Hepatorenal syndrome Acute respiratory failure, intubated on ventilator Hepatic encephalopathy Urinary tract infection GI bleeding Liver cirrhosis Ascites Hypoalbuminemia Pancytopenia Recommendations Kidney function slightly improving today Increased urine output Waterman catheter Strict I&Os kidney ultrasound reported no hydronephrosis Packed red blood cell transfusion p.r.n. IV antibiotics Albumin 25% IVPB KCL replacement Low-dose dopamin Paracentesis Octreotide GI consult We will continue to follow Plan discussed with: Patient My Orders My Orders Orders - ZAINAB QUIJANO MD Procedure Category Date Status Time Midodrine Tablet PHA 12/23/24 Logged (Proamatine Tablet) 18:00 Octreotide Acetate PHA 12/23/24 Logged (Sandostatin) 14:00 Dietary Evaluation Review Comments: 1. Considering high propofol requirements, recommend EN initiation with trickle-tube feeds of Vital HP @ 15 ml/hr 2. Provide minimal free water flushes for tube patency of 30 ml Q6 hrs (120 ml total) or per MD discretion 3. Monitor BMP/lytes and replete to WNL/PRN Expected Outcomes/Goals: Improved nutritional status ZAINAB QUIJANO MD Dec 23, 2024 12:38
--- NOTE | 2024-12-23 13:10 | DVHPN2 ---
Progress Note Date Seen: Dec 23, 2024 Resident Creating Document: PATRICIA BRITTON RESIDENT Medical Necessity Reason Pt with a Central, PICC or Fol: Yes The following are medically ne: Waterman Catheter Reason for waterman catheter: Strict I&O Subjective Review of Systems Patient is 74-year-old female with known medical history of liver cirrhosis who brought to the hospital for altered mental level of consciousness. Over the night of hospitalization patient's mental status continued to be worsened, early in the morning on 12/13/2024 patient started having hematemesis and patient was intubated in ER for airway protection and started on mechanical ventilation. GI consultation has been done for GI bleed and management of liver cirrhosis. Past Medical History Liver cirrhosis, esophageal varices, end-stage liver disease with the ascites , hepatic encephalopathy Past Surgical History History of paracentesis Patient seen and examined at bedside. No other complains. able to tolerate diet. Objective vital signs Vital Sign Date Time Temp Pulse Resp B/P (MAP) Pulse Ox O2 Delivery O2 Flow Rate FiO2 12/23/24 07:00 58 8 106/59 (75) 100 12/23/24 06:00 Nasal Cannula* 2 28 12/23/24 00:00 96.9 96.9 Total Intake and Output 12/22/24 12/22/24 12/23/24 15:00 23:00 07:00 Intake Total 416.875 ml 1489.875 ml 1310 ml Output Total 625 ml 350 ml Balance 416.875 ml 864.875 ml 960 ml medications Current Medications Medications Dose Ordered Sig/Leti Route Start Time Stop Time Status Last Admin Dose Admin Ondansetron HCl 4 mg Q4HP PRN IV 12/13/24 00:15 12/21/24 19:59 4 MG Nitroglycerin 0.4 mg Q5MINP PRN SL 12/13/24 00:15 Ceftriaxone Sodium 50 ml @ 100 mls/hr DAILY@2000 IV 12/13/24 20:00 Cancel Pantoprazole Sodium 40 mg BID IV 12/16/24 22:00 12/23/24 10:38 40 MG Flumazenil 0.2 mg ONCE STAT IV 12/17/24 20:22 12/17/24 20:23 Cancel Lactulose 30 ml BID NG 12/19/24 22:00 12/23/24 10:39 30 ML Diagnostic Test (Pha) 1 strip ACHS 12/19/24 17:00 12/23/24 12:31 1 STRIP Dextrose 50 ml UD PRN IV 12/19/24 16:45 12/20/24 05:39 50 ML Dextrose 1,000 ml @ 50 mls/hr Q20H IV 12/20/24 10:00 Cancel Potassium Chloride 100 ml @ 100 mls/hr DAILY@1100 IV 12/20/24 11:00 12/23/24 12:32 100 MLS/HR Enteral Nutritional Formula 1,000 ml 50ML/HR GT 12/20/24 12:30 12/22/24 09:31 1,000 ML Morphine Sulfate 2 mg Q4HPRN PRN IV 12/21/24 16:00 12/21/24 20:00 2 MG Purified Water 300 ml Q4HR GT 12/21/24 22:00 12/23/24 10:40 300 ML Piperacillin Sod/ Tazobactam Sod 100 ml @ 25 mls/hr Q12HR IV 12/21/24 22:00 UNV Ertapenem 0.5 gm/ Sodium Chloride 50 ml @ 100 mls/hr DAILY IV 12/22/24 10:00 12/23/24 10:40 100 MLS/HR Norepinephrine Bitartrate 250 ml @ 1.875 mls/ hr Q24H IV 12/22/24 00:00 12/22/24 17:59 1.875 MLS/HR Dextrose 1,000 ml @ 50 mls/hr Q20H IV 12/22/24 10:45 12/23/24 08:35 50 MLS/HR Midodrine 10 mg TID@0600,1200,1800 PO 12/23/24 18:00 UNV Octreotide Acetate 100 mcg TID SUBCUT 12/23/24 14:00 UNV Examination General Appearance: extubated, more awake . Head Exam: Normal inspection Neck Exam: Normal inspection. Non-tender. Normal alignment Pulmonary/Respiratory: Chest non-tender. Clear bilateral breath sounds Cardiovascular/Chest: Regular rate and rhythm. No murmurs. No JVD. Peripheral Pulses: 2+ Radial (R). 2+ Radial (L). 2+ Pedal (R). 2+ Pedal (L) Abdominal Exam: Abdomen is soft, nontender. Positive bowel sounds. Ankle Exam: Negative ankle edema Lower extremities: 2+ lower extremity edema, chronic venous stasis. Neuro/Mental Status: Alert, not answering question in words. laboratory and microbiology Laboratory Tests 12/23/24 10:15 Test 12/23/24 10:15 Range/Units Serum Glucose 111 H 74-106 mg/dL Microbiology Date/Time Source Procedure Growth Status 12/16/24 18:17 Bronchial Washings Gram Stain - Final Complete 12/16/24 18:17 Respiratory Culture - Final Escherichia coli - ESBL Complete 12/13/24 12:54 Nose MRSA Screen - Final Complete 12/13/24 10:15 Ascities Fluid Gram Stain - Final Complete 12/13/24 10:15 Ascities Fluid Body Fluid Culture - Final Complete 12/13/24 06:00 Urine - [place] Urine Culture - Final Escherichia coli Complete 12/12/24 20:00 Blood Blood Culture - Final NO GROWTH AFTER 5 DAYS OF INCUBATION. Complete Problem List/Assessment/Plan Problem List/Assessment/Plan Liver cirrhosis Trace distal esophageal varices without bleeding Active upper GI bleed due to Severe gastropathy with gastritis Antral polyps of stomach Hepatic encephalopathy Esophageal variceal Moderate ascites Hypoalbuminemia Hyperammonemia Upper GI bleed Thrombocytopenia GER hemodynamically mediated UTI Plan/recommendation. Dr Foley EGD on 12/14/2024:1. Patient had trace distal esophageal varices without stigmata of bleeding from the varices 2. Patient had a moderate amount of old blood in the stomach after this was aspirated patient was noted to have underlying [id number] gastropathy and gastritis with multiple areas of oozing from the stomach lining 3. There was a 1.5-2 cm pre-pyloric inflammatory antral polyp that was oozing, it was initially biopsied and then removed completely via hot snare polypectomy 4. There were three benign-appearing gastric polyps in the body of the that were seen and removed via hot snare polypectomy 5. Otherwise normal examination up to the 2nd and 3rd part of the duodenum -Puree diet, advance as tolerated. -continue Protonix 40 mg IV b.i.d. -1 unit of PRBC given hemoglobin less than eight, with active GI bleed. 2 PRBC has been given yesterday. -administration IV albumin given after paracentesis: Removed fluid around 6.9 L. -IV antibiotics: Paracentesis fluid analysis showed WBC less than 200, less likely spontaneous bacterial peritonitis. -closely monitor fluid and electrolyte status, maintain map greater than 65. Can initiate vasopressor Levophed if needed. -we will continue to monitor and following up. Plan discussed with: Patient, Other (RN) Dietary Evaluation Review Comments: 1. Considering high propofol requirements, recommend EN initiation with trickle-tube feeds of Vital HP @ 15 ml/hr 2. Provide minimal free water flushes for tube patency of 30 ml Q6 hrs (120 ml total) or per MD discretion 3. Monitor BMP/lytes and replete to WNL/PRN Expected Outcomes/Goals: Improved nutritional status PATRICIA BRITTON RESIDENT Dec 23, 2024 13:10
--- NOTE | 2024-12-23 16:35 | DVHPN2 ---
Subjective This is a 74-year-old female with a known history of end-stage liver disease, hepatic encephalopathy who initially presented to the hospital with altered mental status eventually found to have hematemesis in the ER intubated for airway protection. Patient is currently extubated on continuous O2 supplementation by nasal cannula, patient's mental status is continues to improve. Reviewed: Care Plan Changes from previous H/P or p: No Changes Objective Vitals Vital Signs Date Time Temp Pulse Resp B/P (MAP) Pulse Ox O2 Delivery O2 Flow Rate FiO2 12/23/24 16:00 10 100 Nasal Cannula* 1 24 12/23/24 14:00 68 12/23/24 07:00 106/59 (75) 12/23/24 00:00 96.9 96.9 Intake/Output Intake and Output 12/23/24 07:00 Intake Total 3216.750 ml Output Total 975 ml Balance 2241.750 ml Intake Oral 1890 ml IV Total 1183.750 ml Tube Feeding 143 ml Output Urine Total 350 ml Stool Total 625 ml Exam HEENT pupils are reactive Neck is supple CVS S1-S2 regular rate and rhythm Respiratory diminished breath sounds bases GI positive bowel sounds positive ascites Extremity trace edema FIELD ARTILLERY BASIC patient minimally following commands Medications Current Medications Medications Dose Ordered Sig/Leti Route Start Time Stop Time Status Last Admin Dose Admin Ondansetron HCl 4 mg Q4HP PRN IV 12/13/24 00:15 12/21/24 19:59 4 MG Nitroglycerin 0.4 mg Q5MINP PRN SL 12/13/24 00:15 Ceftriaxone Sodium 50 ml @ 100 mls/hr DAILY@2000 IV 12/13/24 20:00 Cancel Pantoprazole Sodium 40 mg BID IV 12/16/24 22:00 12/23/24 10:38 40 MG Flumazenil 0.2 mg ONCE STAT IV 12/17/24 20:22 12/17/24 20:23 Cancel Lactulose 30 ml BID NG 12/19/24 22:00 12/23/24 10:39 30 ML Diagnostic Test (Pha) 1 strip ACHS 12/19/24 17:00 12/23/24 12:31 1 STRIP Dextrose 50 ml UD PRN IV 12/19/24 16:45 12/20/24 05:39 50 ML Dextrose 1,000 ml @ 50 mls/hr Q20H IV 12/20/24 10:00 Cancel Potassium Chloride 100 ml @ 100 mls/hr DAILY@1100 IV 12/20/24 11:00 12/23/24 12:32 100 MLS/HR Enteral Nutritional Formula 1,000 ml 50ML/HR GT 12/20/24 12:30 12/22/24 09:31 1,000 ML Morphine Sulfate 2 mg Q4HPRN PRN IV 12/21/24 16:00 12/21/24 20:00 2 MG Purified Water 300 ml Q4HR GT 12/21/24 22:00 12/23/24 10:40 300 ML Piperacillin Sod/ Tazobactam Sod 100 ml @ 25 mls/hr Q12HR IV 12/21/24 22:00 UNV Ertapenem 0.5 gm/ Sodium Chloride 50 ml @ 100 mls/hr DAILY IV 12/22/24 10:00 12/23/24 10:40 100 MLS/HR Norepinephrine Bitartrate 250 ml @ 1.875 mls/ hr Q24H IV 12/22/24 00:00 12/22/24 17:59 1.875 MLS/HR Dextrose 1,000 ml @ 50 mls/hr Q20H IV 12/22/24 10:45 12/23/24 08:35 50 MLS/HR Midodrine 10 mg TID@0600,1200,1800 PO 12/23/24 18:00 Octreotide Acetate 100 mcg TID SUBCUT 12/23/24 14:00 Laboratory Results Laboratory Tests 12/23/24 10:15 Chemistry Test 12/23/24 10:15 Albumin 2.4 g/dL (3.2-4.8) L Calcium Level 8.3 mg/dL (8.7-10.4) L Total Protein 4.2 g/dL (5.7-8.2) L LFT Test 12/23/24 10:15 Alanine Aminotransferase (ALT) 19 U/L (7-40) Alkaline Phosphatase 66 U/L (46-116) Aspartate Amino Transferase (AST) 38 U/L (13-40) Total Bilirubin 0.7 mg/dL (0.2-1.0) Urinalysis Test 12/13/24 06:00 Urine Color Yellow (Yellow) Urine Clarity Turbid (Clear) H Urine pH 5.5 (5.0-9.0) Urine Specific [place] 1.016 (1.001-1.035) Urine Protein Trace (Negative) H Urine Ketones Negative (Negative) Urine Blood Trace /uL (Negative) H Urine Nitrite Negative (Negative) Urine Bilirubin Negative (Negative) Urine Urobilinogen Normal mg/dL (Negative) Urine Leukocyte Esterase 3+ /uL (Negative) Urine RBC 2 /hpf (0 - 4) Urine WBC Clumps Present /hpf (None Seen) Urine Microscopic WBC 177 /HPF (0-5) H Urine Squamous Epithelial Cells Few /hpf (<5) Urine Bacteria Many /hpf (None Seen) H Urine Hyaline Casts Few /lpf (0 - 2) Urine Mucus Few (None Seen) Urine Creatinine 134.12 mg/dL (30.0-125.0) H Urine Protein/Creatinine Ratio 0.21 Urine Sodium < 10 mmol/L (40-220) L Urine Glucose Normal mg/dL (Normal) Urine Total Protein 27.9 mg/dL (1-14) H Microbiology Microbiology Date/Time Source Procedure Growth Status 12/22/24 22:40 Ascities Fluid Gram Stain - Preliminary Resulted 12/22/24 22:40 Ascities Fluid Body Fluid Culture Pending Resulted 12/16/24 18:17 Bronchial Washings Gram Stain - Final Complete 12/16/24 18:17 Respiratory Culture - Final Escherichia coli - ESBL Complete 12/13/24 12:54 Nose MRSA Screen - Final Complete 12/13/24 06:00 Urine - [place] Urine Culture - Final Escherichia coli Complete 12/12/24 20:00 Blood Blood Culture - Final NO GROWTH AFTER 5 DAYS OF INCUBATION. Complete Assessment/Plan Assessment/Plan 74-year-old female with known history of end-stage liver disease, who initially presented to the hospital with a hematemesis altered mental status found to have 1. Acute hypoxic respiratory failure status post intubation, status post extubation currently on O2 supplementation 2. Upper GI bleed with esophageal varices and severe gastropathy status post EGD, status post biopsy of the gastric polyp and snare polypectomy 3. Hepatic encephalopathy, slowly improving 4. ESBL pneumonia 5. ESBL UTI 6. Acute kidney injury suspected secondary to vasomotor nephropathy 7. Moderate ascites status post paracentesis -continue Protonix lactulose as tolerated follow up with GI recommendation follow up Pulmonary recommendations Continue antibiotics follow up Infectious Disease recommendations. -downgraded to the D OU. Plan discussed with: Patient, Other My Orders Orders - JUMANA MANCILLA MD Procedure Category Date Status Time Pureed DIET 12/22/24 Transmitted Dinner Date of Service: Dec 23, 2024 Billing Provider: JUMANA MANCILLA MD Common Visit Codes: NOT BILLABLE JUMANA MANCILLA MD Dec 23, 2024 16:35
[2024-12-23] MEDS: OCTREOTIDE ACETATE 100 MCG/ML VL SUBCUT SCH (17:13)
[2024-12-23] MEDS: MIDODRINE HCL 10 MG TAB PO SCH (17:17)
--- NOTE | 2024-12-23 22:29 | DVHPN2 ---
Progress Note - Dictate Date Seen: Dec 23, 2024 Medical Necessity Reason Pt with a Central, PICC or Fol: Yes The following are medically ne: Waterman Catheter Reason for waterman catheter: Strict I&O Subjective Patient seen and examined at bedside. Remains on supplemental oxygen Overnight events reviewed. vital signs Vital Sign Date Time Temp Pulse Resp B/P (MAP) Pulse Ox O2 Delivery O2 Flow Rate FiO2 12/23/24 18:45 58 12 119/76 (90) 99 12/23/24 18:00 Nasal Cannula* 2 28 12/23/24 12:00 96.8 96.8 Total Intake and Output 12/22/24 12/22/24 12/23/24 15:00 23:00 07:00 Intake Total 416.875 ml 1489.875 ml 1360 ml Output Total 625 ml 350 ml Balance 416.875 ml 864.875 ml 1010 ml medications Current Medications Medications Dose Ordered Sig/Leti Route Start Time Stop Time Status Last Admin Dose Admin Ondansetron HCl 4 mg Q4HP PRN IV 12/13/24 00:15 12/21/24 19:59 4 MG Nitroglycerin 0.4 mg Q5MINP PRN SL 12/13/24 00:15 Ceftriaxone Sodium 50 ml @ 100 mls/hr DAILY@2000 IV 12/13/24 20:00 Cancel Pantoprazole Sodium 40 mg BID IV 12/16/24 22:00 12/23/24 10:38 40 MG Flumazenil 0.2 mg ONCE STAT IV 12/17/24 20:22 12/17/24 20:23 Cancel Lactulose 30 ml BID NG 12/19/24 22:00 12/23/24 10:39 30 ML Diagnostic Test (Pha) 1 strip ACHS 12/19/24 17:00 12/23/24 17:13 1 STRIP Dextrose 50 ml UD PRN IV 12/19/24 16:45 12/20/24 05:39 50 ML Dextrose 1,000 ml @ 50 mls/hr Q20H IV 12/20/24 10:00 Cancel Potassium Chloride 100 ml @ 100 mls/hr DAILY@1100 IV 12/20/24 11:00 12/23/24 12:32 100 MLS/HR Enteral Nutritional Formula 1,000 ml 50ML/HR GT 12/20/24 12:30 12/22/24 09:31 1,000 ML Morphine Sulfate 2 mg Q4HPRN PRN IV 12/21/24 16:00 12/21/24 20:00 2 MG Purified Water 300 ml Q4HR GT 12/21/24 22:00 12/23/24 17:14 300 ML Piperacillin Sod/ Tazobactam Sod 100 ml @ 25 mls/hr Q12HR IV 12/21/24 22:00 UNV Ertapenem 0.5 gm/ Sodium Chloride 50 ml @ 100 mls/hr DAILY IV 12/22/24 10:00 12/23/24 10:40 100 MLS/HR Norepinephrine Bitartrate 250 ml @ 1.875 mls/ hr Q24H IV 12/22/24 00:00 12/22/24 17:59 1.875 MLS/HR Dextrose 1,000 ml @ 50 mls/hr Q20H IV 12/22/24 10:45 12/23/24 08:35 50 MLS/HR Midodrine 10 mg TID@0600,1200,1800 PO 12/23/24 18:00 12/23/24 17:17 10 MG Octreotide Acetate 100 mcg TID SUBCUT 12/23/24 14:00 12/23/24 17:13 100 MCG objective Gen.: Patient lying in bed in no apparent distress. On supplemental oxygen. Head: Normocephalic, atraumatic. Eyes: EOMI/PERRLA. Ears: Normal hearing. Normal anatomy. Neck/trachea: Trachea midline, supple. Nose: Normal external anatomy. Mouth: Moist mucous membranes. Chest: Decreased air entry bilaterally. No wheezing or rhonchi. Cardiovascular: Positive S1, positive S2. Regular rate and rhythm. Abdomen: Positive bowel sounds in all 4 quadrants. Soft, non-tender, non- distended. : Deferred. Rectal: Deferred. Skin: Warm, dry. Intact. Extremities: 2+ radial pulses bilaterally. No lower extremity edema. Neuro: Awake, alert, oriented x2. No gross motor or sensory deficits. Cranial nerves II through XII intact. Gait not assessed laboratory and microbiology Laboratory Tests 12/23/24 10:15 Test 12/23/24 10:15 Range/Units Serum Glucose 111 H 74-106 mg/dL Assessment/Plan Impression: Acute hypoxic respiratory failure Hepatic encephalopathy Hyperammonemia Liver cirrhosis Large volume ascites Thrombocytopenia Anemia, chronic Acute on chronic kidney disease Lactic acidosis Metabolic acidosis Events: Status post paracentesis, removed 4.5 L on 12/22/24 Patient is more awake, alert, following commands. Awake, oriented to self and place. Remains on 2 LPM NC supplemental oxygen Taper O2 as tolerated Labs reviewed Accu-Cheks, monitor for hypoglycemia (glucose today 68) Swallow evaluation Head of bed elevation Aspiration precautions Supportive care Continue abx Continue lactulose. Off pressors since 2299 yesterday - monitor hemodynamics Hemoglobin stable - continue to monitor Protonix BID Monitor renal function Monitor electrolytes. Supplement as necessary. Potassium supplementation Nephrology recommendations appreciated. Tube feeds for nutritional support Labs and imaging reviewed. Rest of plan as noted below. Plan: s/p extubation on 12/17/24 Supplemental oxygen Titrate to keep O2 sats above 92%. Pressors if necessary for hemodynamic support. Titrate to keep MAP above 65 mmHg/SBP above 90 mmHg. Continue antibiotics. Follow up cultures Bronchial cultures grew ESBL E.coli Monitor renal function due to acute kidney injury. Monitor electrolytes. Supplement as necessary. Monitor ins and outs Nephrology recommendations appreciated. Metabolic acidosis - received one ampule of bicarbonate on 12/13. Status post paracentesis, albumin given. Nutritional support. Accu-Cheks, ISS. GI/DVT prophylaxis. Condition: Critical Prognosis: Guarded given multiple comorbidities. Rest of plan per hospitalist and other consultants. A total of 35 minutes of critical care time was spent reviewing the patient record, examining the patient, making a diagnostic and therapeutic plan, discussing this plan with the medical personnel, following up on diagnostic studies and following the patient for clinical stability excluding any and all procedures. At least 50% of this time was spent in direct, [id number] contact. Thank you MASSIEL Arias for allowing me to participate in this patient's care. Further recommendations will depend on patient's clinical course. Please do not hesitate to contact me if you have any questions or concerns. This medical document was created using an electronic medical record system with [employer] system. Although this document has been carefully reviewed, there may still be some phonetic and typographical errors. These areas are purely typographical due to imperfections of the software programs, and do not reflect any compromise in the patient's medical care. Dietary Evaluation Review Comments: 1. Considering high propofol requirements, recommend EN initiation with trickle-tube feeds of Vital HP @ 15 ml/hr 2. Provide minimal free water flushes for tube patency of 30 ml Q6 hrs (120 ml total) or per MD discretion 3. Monitor BMP/lytes and replete to WNL/PRN Expected Outcomes/Goals: Improved nutritional status Plan discussed with: Other (RN January) Critical Care Time(min): 35 SCOTT NELSON MD Dec 23, 2024 22:29
[2024-12-24] VITALS (93 sets, daily range): BP systolic 81–138; BP diastolic 42–82; PULSE 42–110; RESP 8–28; TEMP 97–99.3; O2SAT 88–100
[2024-12-24 04:40] LABS: Basophils # (auto) 0 10 ^3/uL (0-0.2); Eosinophils # (auto) 0 10 ^3/uL (0-0.8); Hemoglobin 9.5 g/dL (12.2-16.2); Lymphocytes # (auto) 0.6 10 ^3/uL (0.4-5.4); Mean Corpuscular Hemoglobin 29.8 pg (28.0-32.0); Mean Corpuscular Hgb Conc. 32.1 g/dL (32.0-36.0); Monocytes # (auto) 0.3 10 ^3/uL (0-1.3); Neutrophils # (auto) 2.3 10 ^3/uL (1.6-8.6)
[2024-12-24 04:42] LABS: Basophils % (auto) 1.2 % (0.0-2.0); Eosinophils % (auto) 0.2 % (0.0-7.0); Hematocrit 29.6 % (36.0-46.0); Lymphocytes % (auto) 18.8 % (10.0-50.0); Monocytes % (auto) 8.8 % (0.0-12.0); Nucleated Red Blood Cells % 0.7 %; Platelet Count (auto) 52 10^3/uL (140-450); Red Blood Cells 3.19 10^6/uL (4.0-5.20); Red Cell Distribution Width 29.3 % (11.8-14.3); White Blood Cell 3.2 10^3/uL (4.4-10.8)
[2024-12-24 05:03] LABS: Alanine Aminotransferase 19 U/L (7-40); Albumin 2.3 g/dL (3.2-4.8); Alkaline Phosphatase 66 U/L (46-116); Anion Gap 9 (5-15); Aspartate Aminotransferase 39 U/L (13-40); BUN/Creatinine Ratio 20.4 (10.0-20.0); Bilirubin, Total 0.6 mg/dL (0.2-1.0); Blood Urea Nitrogen 40 mg/dL (9-23); Calcium 8.2 mg/dL (8.7-10.4); Carbon Dioxide 18 mmol/L (20-31); Chloride 118 mmol/L (98-107); Glucose 132 mg/dL (74-106); Potassium 4.3 mmol/L (3.5-5.1); Sodium 145 mmol/L (136-145); Total Protein 4.1 g/dL (5.7-8.2)
[2024-12-24 05:19] LABS: Anisocytosis Marked; Ovalocytes FEW; Platelet Estimate Decreased; Tear Drop Cells FEW
--- NOTE | 2024-12-24 09:36 | DVHPN2 ---
Progress Note Date Seen: Dec 24, 2024 Medical Necessity Reason Pt with a Central, PICC or Fol: Yes The following are medically ne: Waterman Catheter Reason for waterman catheter: Strict I&O Subjective Patient reports: No new complaints Other Systems: Patient seen and examined by myself today in follow-up Objective vital signs Vital Sign Date Time Temp Pulse Resp B/P (MAP) Pulse Ox O2 Delivery O2 Flow Rate FiO2 12/24/24 08:45 61 12 88/58 (68) 98 12/24/24 08:00 97.9 97.9 12/24/24 08:00 Nasal Cannula* 2 28 Total Intake and Output 12/23/24 12/23/24 12/24/24 15:00 23:00 07:00 Intake Total 550 ml 700 ml 1200 ml Output Total 300 ml 300 ml Balance 550 ml 400 ml 900 ml medications Current Medications Medications Dose Ordered Sig/Leti Route Start Time Stop Time Status Last Admin Dose Admin Ondansetron HCl 4 mg Q4HP PRN IV 12/13/24 00:15 12/21/24 19:59 4 MG Nitroglycerin 0.4 mg Q5MINP PRN SL 12/13/24 00:15 Ceftriaxone Sodium 50 ml @ 100 mls/hr DAILY@2000 IV 12/13/24 20:00 Cancel Pantoprazole Sodium 40 mg BID IV 12/16/24 22:00 12/23/24 22:23 40 MG Flumazenil 0.2 mg ONCE STAT IV 12/17/24 20:22 12/17/24 20:23 Cancel Lactulose 30 ml BID NG 12/19/24 22:00 12/23/24 22:23 30 ML Diagnostic Test (Pha) 1 strip ACHS 12/19/24 17:00 12/24/24 07:55 1 STRIP Dextrose 50 ml UD PRN IV 12/19/24 16:45 12/20/24 05:39 50 ML Dextrose 1,000 ml @ 50 mls/hr Q20H IV 12/20/24 10:00 Cancel Potassium Chloride 100 ml @ 100 mls/hr DAILY@1100 IV 12/20/24 11:00 12/23/24 12:32 100 MLS/HR Enteral Nutritional Formula 1,000 ml 50ML/HR GT 12/20/24 12:30 12/22/24 09:31 1,000 ML Morphine Sulfate 2 mg Q4HPRN PRN IV 12/21/24 16:00 12/21/24 20:00 2 MG Purified Water 300 ml Q4HR GT 12/21/24 22:00 12/24/24 06:16 300 ML Piperacillin Sod/ Tazobactam Sod 100 ml @ 25 mls/hr Q12HR IV 12/21/24 22:00 UNV Ertapenem 0.5 gm/ Sodium Chloride 50 ml @ 100 mls/hr DAILY IV 12/22/24 10:00 12/23/24 10:40 100 MLS/HR Norepinephrine Bitartrate 250 ml @ 1.875 mls/ hr Q24H IV 12/22/24 00:00 12/22/24 17:59 1.875 MLS/HR Dextrose 1,000 ml @ 50 mls/hr Q20H IV 12/22/24 10:45 12/24/24 05:00 50 MLS/HR Midodrine 10 mg TID@0600,1200,1800 PO 12/23/24 18:00 12/24/24 06:16 10 MG Octreotide Acetate 100 mcg TID SUBCUT 12/23/24 14:00 12/24/24 06:16 100 MCG Examination: LUNGS:Normal, CVS:Normal, MSK:Normal laboratory and microbiology Laboratory Tests 12/24/24 03:19 Test 12/24/24 03:19 Range/Units Serum Glucose 132 H 74-106 mg/dL Microbiology Date/Time Source Procedure Growth Status 12/22/24 22:40 Ascities Fluid Gram Stain - Preliminary Resulted 12/22/24 22:40 Ascities Fluid Body Fluid Culture Pending Resulted 12/16/24 18:17 Bronchial Washings Gram Stain - Final Complete 12/16/24 18:17 Respiratory Culture - Final Escherichia coli - ESBL Complete 12/13/24 12:54 Nose MRSA Screen - Final Complete 12/13/24 06:00 Urine - [place] Port Urine Culture - Final Escherichia coli Complete 12/12/24 20:00 Blood Blood Culture - Final NO GROWTH AFTER 5 DAYS OF INCUBATION. Complete Problem List/Assessment/Plan Problem List/Assessment/Plan Acute kidney injury superimposed Chronic Kidney Disease secondary hemodynamic mediated, FeNa < 1% Hepatorenal syndrome Acute respiratory failure, extubated Hepatic encephalopathy Urinary tract infection GI bleeding Liver cirrhosis Ascites Hypoalbuminemia Pancytopenia Recommendations Kidney function continued to improve Increased urine output Waterman catheter Strict I&Os kidney ultrasound reported no hydronephrosis Packed red blood cell transfusion p.r.n. IV antibiotics Albumin 25% IVPB KCL replacement Low-dose dopamin Paracentesis Octreotide GI consult We will continue to follow Plan discussed with: Patient My Orders My Orders Orders - ZAINAB QUIJANO MD Procedure Category Date Status Time Midodrine Tablet PHA 12/23/24 In Process (Proamatine Tablet) 18:00 Octreotide Acetate PHA 12/23/24 In Process (Sandostatin) 14:00 Dietary Evaluation Review Comments: 1. Considering high propofol requirements, recommend EN initiation with trickle-tube feeds of Vital HP @ 15 ml/hr 2. Provide minimal free water flushes for tube patency of 30 ml Q6 hrs (120 ml total) or per MD discretion 3. Monitor BMP/lytes and replete to WNL/PRN Expected Outcomes/Goals: Improved nutritional status ZAINAB QUIJANO MD Dec 24, 2024 09:36
[2024-12-24] MEDS: SOD CHL 0.45% 1,000 ML IV SCH (11:45)
--- NOTE | 2024-12-24 12:32 | DVHPN2 ---
Subjective This is a 74-year-old female with a known history of end-stage liver disease, hepatic encephalopathy who initially presented to the hospital with altered mental status eventually found to have hematemesis in the ER intubated for airway protection. Patient is currently extubated on continuous O2 supplementation by nasal cannula, patient's mental status is continues to improve. Overnight events noted. Reviewed: Care Plan Changes from previous H/P or p: No Changes Objective Vitals Vital Signs Date Time Temp Pulse Resp B/P (MAP) Pulse Ox O2 Delivery O2 Flow Rate FiO2 12/24/24 08:45 61 12 88/58 (68) 98 12/24/24 08:00 97.9 97.9 12/24/24 08:00 Nasal Cannula* 2 28 Intake/Output Intake and Output 12/24/24 07:00 Intake Total 2500 ml Output Total 600 ml Balance 1900 ml Intake Oral 1200 ml IV Total 1300 ml Output Urine Total 100 ml Stool Total 500 ml Exam HEENT pupils are reactive Neck is supple CVS S1-S2 regular rate and rhythm Respiratory diminished breath sounds bases GI positive bowel sounds positive ascites Extremity trace edema [place] patient minimally following commands Medications Current Medications Medications Dose Ordered Sig/Leti Route Start Time Stop Time Status Last Admin Dose Admin Ondansetron HCl 4 mg Q4HP PRN IV 12/13/24 00:15 12/21/24 19:59 4 MG Nitroglycerin 0.4 mg Q5MINP PRN SL 12/13/24 00:15 Ceftriaxone Sodium 50 ml @ 100 mls/hr DAILY@2000 IV 12/13/24 20:00 Cancel Pantoprazole Sodium 40 mg BID IV 12/16/24 22:00 12/24/24 09:53 40 MG Flumazenil 0.2 mg ONCE STAT IV 12/17/24 20:22 12/17/24 20:23 Cancel Lactulose 30 ml BID NG 12/19/24 22:00 12/24/24 09:53 30 ML Diagnostic Test (Pha) 1 strip ACHS 12/19/24 17:00 12/24/24 11:51 1 STRIP Dextrose 50 ml UD PRN IV 12/19/24 16:45 12/20/24 05:39 50 ML Dextrose 1,000 ml @ 50 mls/hr Q20H IV 12/20/24 10:00 Cancel Potassium Chloride 100 ml @ 100 mls/hr DAILY@1100 IV 12/20/24 11:00 12/23/24 12:32 100 MLS/HR Enteral Nutritional Formula 1,000 ml 50ML/HR GT 12/20/24 12:30 12/22/24 09:31 1,000 ML Morphine Sulfate 2 mg Q4HPRN PRN IV 12/21/24 16:00 12/21/24 20:00 2 MG Purified Water 300 ml Q4HR GT 12/21/24 22:00 12/24/24 06:16 300 ML Piperacillin Sod/ Tazobactam Sod 100 ml @ 25 mls/hr Q12HR IV 12/21/24 22:00 UNV Ertapenem 0.5 gm/ Sodium Chloride 50 ml @ 100 mls/hr DAILY IV 12/22/24 10:00 12/24/24 09:54 100 MLS/HR Norepinephrine Bitartrate 250 ml @ 1.875 mls/ hr Q24H IV 12/22/24 00:00 12/22/24 17:59 1.875 MLS/HR Midodrine 10 mg TID@0600,1200,1800 PO 12/23/24 18:00 12/24/24 11:51 10 MG Octreotide Acetate 100 mcg TID SUBCUT 12/23/24 14:00 12/24/24 06:16 100 MCG Sodium Chloride 1,000 ml @ 100 mls/hr Q10H IV 12/24/24 11:45 Laboratory Results Laboratory Tests 12/24/24 03:19 Chemistry Test 12/24/24 03:19 Albumin 2.3 g/dL (3.2-4.8) L Calcium Level 8.2 mg/dL (8.7-10.4) L Total Protein 4.1 g/dL (5.7-8.2) L LFT Test 12/24/24 03:19 Alanine Aminotransferase (ALT) 19 U/L (7-40) Alkaline Phosphatase 66 U/L (46-116) Aspartate Amino Transferase (AST) 39 U/L (13-40) Total Bilirubin 0.6 mg/dL (0.2-1.0) Urinalysis Test 12/13/24 06:00 Urine Color Yellow (Yellow) Urine Clarity Turbid (Clear) H Urine pH 5.5 (5.0-9.0) Urine Specific [place] 1.016 (1.001-1.035) Urine Protein Trace (Negative) H Urine Ketones Negative (Negative) Urine Blood Trace /uL (Negative) H Urine Nitrite Negative (Negative) Urine Bilirubin Negative (Negative) Urine Urobilinogen Normal mg/dL (Negative) Urine Leukocyte Esterase 3+ /uL (Negative) Urine RBC 2 /hpf (0 - 4) Urine WBC Clumps Present /hpf (None Seen) Urine Microscopic WBC 177 /HPF (0-5) H Urine Squamous Epithelial Cells Few /hpf (<5) Urine Bacteria Many /hpf (None Seen) H Urine Hyaline Casts Few /lpf (0 - 2) Urine Mucus Few (None Seen) Urine Creatinine 134.12 mg/dL (30.0-125.0) H Urine Protein/Creatinine Ratio 0.21 Urine Sodium < 10 mmol/L (40-220) L Urine Glucose Normal mg/dL (Normal) Urine Total Protein 27.9 mg/dL (1-14) H Microbiology Microbiology Date/Time Source Procedure Growth Status 12/22/24 22:40 Ascities Fluid Gram Stain - Preliminary Resulted 12/22/24 22:40 Ascities Fluid Body Fluid Culture Pending Resulted 12/16/24 18:17 Bronchial Washings Gram Stain - Final Complete 12/16/24 18:17 Respiratory Culture - Final Escherichia coli - ESBL Complete 12/13/24 12:54 Nose MRSA Screen - Final Complete 12/13/24 06:00 Urine - [place] Urine Culture - Final Escherichia coli Complete 12/12/24 20:00 Blood Blood Culture - Final NO GROWTH AFTER 5 DAYS OF INCUBATION. Complete Assessment/Plan Assessment/Plan 74-year-old female with known history of end-stage liver disease, who initially presented to the hospital with a hematemesis altered mental status found to have 1. Acute hypoxic respiratory failure status post intubation, status post extubation currently on O2 supplementation continuous nasal cannula 2. Upper GI bleed with esophageal varices and severe gastropathy status post EGD, status post biopsy of the gastric polyp and snare polypectomy 3. Hepatic encephalopathy, improved significantly 4. ESBL pneumonia 5. ESBL UTI 6. Acute kidney injury suspected secondary to vasomotor nephropathy, improving 7. Moderate ascites status post paracentesis 8. Hyperammonemia, resolved 9. Hypernatremia -continue Protonix lactulose as tolerated follow up with GI recommendation follow up Pulmonary recommendations Continue antibiotics follow up Infectious Disease recommendations. -downgraded to the D OU. Plan discussed with: Patient, Other My Orders Orders - JUMANA MANCILLA MD Procedure Category Date Status Time Transfer Orders XFER 12/23/24 Transmitted 17:09 Date of Service: Dec 24, 2024 Billing Provider: JUMANA MANCILLA MD Common Visit Codes: NOT BILLABLE JUMANA MANCILLA MD Dec 24, 2024 12:32
[2024-12-24 13:07] LABS: Albumin, Body Fluid 0.8 g/dL (Not Estab.); Protein, Body Fluid 1.3 g/dL (.)
--- NOTE | 2024-12-24 16:43 | DVHPN2 ---
Consult Progress Note Date Seen: Dec 23, 2024 Subjective Patient reports: Other (mildly hypotensive after parasynthesis , also getting a swallow evaluation and is transotioning to oral intake , abdomen is more distended today and is filling up with fluid again ) Objective vital signs Vital Sign Date Time Temp Pulse Resp B/P (MAP) Pulse Ox O2 Delivery O2 Flow Rate FiO2 12/24/24 16:00 52 12/24/24 16:00 9 100 Room Air* 0 21 12/24/24 08:45 88/58 (68) 12/24/24 08:00 97.9 97.9 Total Intake and Output 12/23/24 12/23/24 12/24/24 15:00 23:00 07:00 Intake Total 550 ml 700 ml 1250 ml Output Total 300 ml 300 ml Balance 550 ml 400 ml 950 ml medications Current Medications Medications Dose Ordered Sig/Leti Route Start Time Stop Time Status Last Admin Dose Admin Ondansetron HCl 4 mg Q4HP PRN IV 12/13/24 00:15 12/21/24 19:59 4 MG Nitroglycerin 0.4 mg Q5MINP PRN SL 12/13/24 00:15 Ceftriaxone Sodium 50 ml @ 100 mls/hr DAILY@2000 IV 12/13/24 20:00 Cancel Pantoprazole Sodium 40 mg BID IV 12/16/24 22:00 12/24/24 09:53 40 MG Flumazenil 0.2 mg ONCE STAT IV 12/17/24 20:22 12/17/24 20:23 Cancel Lactulose 30 ml BID NG 12/19/24 22:00 12/24/24 09:53 30 ML Diagnostic Test (Pha) 1 strip ACHS 12/19/24 17:00 12/24/24 11:51 1 STRIP Dextrose 50 ml UD PRN IV 12/19/24 16:45 12/20/24 05:39 50 ML Dextrose 1,000 ml @ 50 mls/hr Q20H IV 12/20/24 10:00 Cancel Potassium Chloride 100 ml @ 100 mls/hr DAILY@1100 IV 12/20/24 11:00 12/23/24 12:32 100 MLS/HR Enteral Nutritional Formula 1,000 ml 50ML/HR GT 12/20/24 12:30 12/22/24 09:31 1,000 ML Morphine Sulfate 2 mg Q4HPRN PRN IV 12/21/24 16:00 12/21/24 20:00 2 MG Purified Water 300 ml Q4HR GT 12/21/24 22:00 12/24/24 14:58 300 ML Piperacillin Sod/ Tazobactam Sod 100 ml @ 25 mls/hr Q12HR IV 12/21/24 22:00 UNV Ertapenem 0.5 gm/ Sodium Chloride 50 ml @ 100 mls/hr DAILY IV 12/22/24 10:00 12/24/24 09:54 100 MLS/HR Norepinephrine Bitartrate 250 ml @ 1.875 mls/ hr Q24H IV 12/22/24 00:00 12/22/24 17:59 1.875 MLS/HR Midodrine 10 mg TID@0600,1200,1800 PO 12/23/24 18:00 12/24/24 11:51 10 MG Octreotide Acetate 100 mcg TID SUBCUT 12/23/24 14:00 12/24/24 14:58 100 MCG Sodium Chloride 1,000 ml @ 100 mls/hr Q10H IV 12/24/24 11:45 12/24/24 11:45 100 MLS/HR Physical Exam: General: Patient is obtunded, only responsive to name. Neck: Supple. No masses. HEENT: PERRL. Normal lids and conjunctiva. Moist mucous membranes. Oropharynx without lesions, exudates or excessive erythema. Normal appearance of the external aspects of the nose and ears. Heart: Regular rhythm, normal rate. No murmur. No lower extremity edema. Lungs: Normal respiratory effort. Clear to auscultation bilaterally. No wheezes. No crackles. Abdomen: Distended abdomen with positive fluid wave. Msk: Diffuse edema in lower extremities. Skin: Mild jaundice, bruising on face. Neuro: Altered mental status; only alert to name. Psych: Unable to assess due to altered mental status. Oriented to person, place, time, and situation: No. laboratory and microbiology Laboratory Tests 12/24/24 03:19 Test 12/24/24 03:19 Range/Units Serum Glucose 132 H 74-106 mg/dL Problem List/Assessment/Plan Problems(with codes): (1) Sputum culture positive for ESBL E. coli (2) Pneumonia (3) Hypotension (4) Thrombocytopenia (5) Pancytopenia (6) Liver cirrhosis (7) Ascites (8) Hyperammonemia (9) Anemia (10) Acute renal failure Problem List/Assessment/Plan ID Problem List: - Decompensated liver cirrhosis - Hepatic encephalopathy - Esophageal varices - ESBL E. coli pneumonia - E. coli UTI - Acute hypoxic respiratory failure - Septic shock - GER vs. CKD - Thrombocytopenia - Anemia - Diabetes mellitus - Diarrhea - Altered mental status - Anasarca Assessment This is a 74 y.o. female with a past medical history of liver cirrhosis and diabetes mellitus, who presents with bloody vomiting and altered mental status. Patient was only alert to her name upon admission with an elevated ammonia level of 197. She exhibited large volume ascites, anemia (Hb 9.6), thrombocytopenia (platelets 75), and leukopenia (WBC 2.7). Imaging revealed a cirrhotic liver with large volume ascites, esophageal varices, and evidence of pneumonia. She underwent upper endoscopy revealing trace distal esophageal varices without stigmata of bleeding, moderate to severe gastropathy and gastritis with multiple areas of oozing, and removal of gastric polyps via hot snare polypectomy. BAL cultures are growing ESBL E. coli sensitive to ertapenem, gentamicin, meropenem, and Zosyn; resistant to cefepime. 12/18: sodium is 150 , BUN is 59 which is likely contributing to patients altered mental status 12/19: responding to antibiotic , diarrhea is likely related to refaxmen use and trying to improve mentation with adequate bowel movements 12/20: sodium is 153 12/21: sodium is 154 12/22: peritoneal fluid analysis shows 5pnms 29 wbcs which is not consistent with sbp 12/23: patients peritoneal fluid cultures are no growth to date , pneumonia appears resolving Plan: - follow up on peritoneal cultures - continue ertapenem to reduce sodium for an additional 7 day course - Monitor renal function; defer management of GER to nephrology. - Continue aspiration precautions; keep patient upright at 30 degrees. - Follow up on blood cultures; low concern for SBP at this time. - Provide pressor support as needed to maintain MAP >65 mmHg. - Fluid restriction due to liver cirrhosis and recurrent ascites. - Defer management of hepatic encephalopathy to GI team and primary care team. - Monitor electrolyte levels; sodium is slowly rising. - Continue rifaximin for hepatic encephalopathy. - Monitor for signs of recurrent pneumonia; repeat sputum cultures and chest X- ray if needed. Authorized and Performed by: Anai Ureña Total critical care time: Approximately 76 minutes Due to a high probability of clinically significant, life threatening deterioration, the patient required my highest level of preparedness to intervene emergently and I personally spent this critical care time directly and personally managing the patient. This critical care time included obtaining a history; examining the patient; pulse oximetry; ordering and review of studies; arranging urgent treatment with development of a management plan; evaluation of patient's response to treatment; frequent reassessment; and, discussions with other providers. This critical care time was performed to assess and manage the high probability of imminent, life-threatening deterioration that could result in multi-organ failure. It was exclusive of separately billable procedures and treating other patients and teaching time. Isolation Precautions: contact ESBL Plan discussed with: Other Dietary Evaluation Review Comments: 1. Considering high propofol requirements, recommend EN initiation with trickle-tube feeds of Vital HP @ 15 ml/hr 2. Provide minimal free water flushes for tube patency of 30 ml Q6 hrs (120 ml total) or per MD discretion 3. Monitor BMP/lytes and replete to WNL/PRN Expected Outcomes/Goals: Improved nutritional status ANAI UREÑA MD Dec 24, 2024 16:43
--- NOTE | 2024-12-24 21:16 | DVHPN2 ---
Progress Note - Dictate Date Seen: Dec 24, 2024 Medical Necessity Reason Pt with a Central, PICC or Fol: Yes The following are medically ne: Waterman Catheter Reason for waterman catheter: Strict I&O Subjective Patient seen and examined at bedside. Breathing on room air Overnight events reviewed. vital signs Vital Sign Date Time Temp Pulse Resp B/P (MAP) Pulse Ox O2 Delivery O2 Flow Rate FiO2 12/24/24 20:00 9 98 Room Air* 0 21 12/24/24 20:00 49 12/24/24 19:15 134/66 (88) 12/24/24 16:00 97.0 97.0 Total Intake and Output 12/23/24 12/23/24 12/24/24 15:00 23:00 07:00 Intake Total 550 ml 700 ml 1250 ml Output Total 300 ml 300 ml Balance 550 ml 400 ml 950 ml medications Current Medications Medications Dose Ordered Sig/Leti Route Start Time Stop Time Status Last Admin Dose Admin Ondansetron HCl 4 mg Q4HP PRN IV 12/13/24 00:15 12/21/24 19:59 4 MG Nitroglycerin 0.4 mg Q5MINP PRN SL 12/13/24 00:15 Ceftriaxone Sodium 50 ml @ 100 mls/hr DAILY@2000 IV 12/13/24 20:00 Cancel Pantoprazole Sodium 40 mg BID IV 12/16/24 22:00 12/24/24 09:53 40 MG Flumazenil 0.2 mg ONCE STAT IV 12/17/24 20:22 12/17/24 20:23 Cancel Lactulose 30 ml BID NG 12/19/24 22:00 12/24/24 09:53 30 ML Diagnostic Test (Pha) 1 strip ACHS 12/19/24 17:00 12/24/24 17:44 1 STRIP Dextrose 50 ml UD PRN IV 12/19/24 16:45 12/20/24 05:39 50 ML Dextrose 1,000 ml @ 50 mls/hr Q20H IV 12/20/24 10:00 Cancel Potassium Chloride 100 ml @ 100 mls/hr DAILY@1100 IV 12/20/24 11:00 12/23/24 12:32 100 MLS/HR Enteral Nutritional Formula 1,000 ml 50ML/HR GT 12/20/24 12:30 12/22/24 09:31 1,000 ML Morphine Sulfate 2 mg Q4HPRN PRN IV 12/21/24 16:00 12/21/24 20:00 2 MG Purified Water 300 ml Q4HR GT 12/21/24 22:00 12/24/24 17:44 300 ML Piperacillin Sod/ Tazobactam Sod 100 ml @ 25 mls/hr Q12HR IV 12/21/24 22:00 UNV Ertapenem 0.5 gm/ Sodium Chloride 50 ml @ 100 mls/hr DAILY IV 12/22/24 10:00 12/24/24 09:54 100 MLS/HR Norepinephrine Bitartrate 250 ml @ 1.875 mls/ hr Q24H IV 12/22/24 00:00 12/22/24 17:59 1.875 MLS/HR Midodrine 10 mg TID@0600,1200,1800 PO 12/23/24 18:00 12/24/24 17:49 10 MG Octreotide Acetate 100 mcg TID SUBCUT 12/23/24 14:00 12/24/24 14:58 100 MCG Sodium Chloride 1,000 ml @ 100 mls/hr Q10H IV 12/24/24 11:45 12/24/24 11:45 100 MLS/HR Atropine Sulfate 1 mg ONCE PRN IV 12/24/24 20:45 objective Gen.: Patient lying in bed in no apparent distress. On room air. Head: Normocephalic, atraumatic. Eyes: EOMI/PERRLA. Ears: Normal hearing. Normal anatomy. Neck/trachea: Trachea midline, supple. Nose: Normal external anatomy. Mouth: Moist mucous membranes. Chest: Decreased air entry bilaterally. No wheezing or rhonchi. Cardiovascular: Positive S1, positive S2. Regular rate and rhythm. Abdomen: Positive bowel sounds in all 4 quadrants. Soft, non-tender, non- distended. : Deferred. Rectal: Deferred. Skin: Warm, dry. Intact. Extremities: 2+ radial pulses bilaterally. No lower extremity edema. Neuro: Awake, alert, oriented x2. No gross motor or sensory deficits. Cranial nerves II through XII intact. Gait not assessed laboratory and microbiology Laboratory Tests 12/24/24 03:19 Test 12/24/24 03:19 Range/Units Serum Glucose 132 H 74-106 mg/dL Assessment/Plan Impression: Acute hypoxic respiratory failure Hepatic encephalopathy Hyperammonemia Liver cirrhosis Large volume ascites Thrombocytopenia Anemia, chronic Acute on chronic kidney disease Lactic acidosis Metabolic acidosis Events: Patient is more awake, alert, following commands. Awake, oriented to self and place. Off supplemental oxygen, currently on room air. Supplemental oxygen PRN Labs reviewed Accu-Cheks, monitor for hypoglycemia - glucose today 132 Swallow evaluation Head of bed elevation Aspiration precautions Supportive care Continue abx Continue lactulose. Off pressors - monitor hemodynamics Monitor hemoglobin -9.5 g/dL Protonix BID IV fluids with 1/2 NS at 100 ml/hr. Monitor renal function - Cr trending down to 1.96 Monitor electrolytes. Supplement as necessary. Monitor sodium Nephrology recommendations appreciated. Metabolic acidosis - bicarb 18 On D5W. Tube feeds for nutritional support Status post paracentesis, removed 4.5 L on 12/22/24 Labs and imaging reviewed. Rest of plan as noted below. Plan: s/p extubation on 12/17/24 Supplemental oxygen PRN Titrate to keep O2 sats above 92%. Pressors if necessary for hemodynamic support. Titrate to keep MAP above 65 mmHg/SBP above 90 mmHg. Continue antibiotics. Follow up cultures Bronchial cultures grew ESBL E.coli Monitor renal function due to acute kidney injury. Monitor electrolytes. Supplement as necessary. Monitor ins and outs Nephrology recommendations appreciated. Metabolic acidosis - received one ampule of bicarbonate on 12/13. Status post paracentesis, albumin given. Nutritional support. Accu-Cheks, ISS. GI/DVT prophylaxis. Condition: Critical Prognosis: Guarded given multiple comorbidities. Rest of plan per hospitalist and other consultants. A total of 35 minutes of critical care time was spent reviewing the patient record, examining the patient, making a diagnostic and therapeutic plan, discussing this plan with the medical personnel, following up on diagnostic studies and following the patient for clinical stability excluding any and all procedures. At least 50% of this time was spent in direct, [id number] contact. Thank you MASSIEL Arias for allowing me to participate in this patient's care. Further recommendations will depend on patient's clinical course. Please do not hesitate to contact me if you have any questions or concerns. This medical document was created using an electronic medical record system with [employer] dictation system. Although this document has been carefully reviewed, there may still be some phonetic and typographical errors. These areas are purely typographical due to imperfections of the software programs, and do not reflect any compromise in the patient's medical care. Dietary Evaluation Review Comments: 1. Considering high propofol requirements, recommend EN initiation with trickle-tube feeds of Vital HP @ 15 ml/hr 2. Provide minimal free water flushes for tube patency of 30 ml Q6 hrs (120 ml total) or per MD discretion 3. Monitor BMP/lytes and replete to WNL/PRN Expected Outcomes/Goals: Improved nutritional status Plan discussed with: Patient, Other (RN January) Critical Care Time(min): 35 SCOTT NELSON MD Dec 24, 2024 21:16
[2024-12-24] MEDS: ATROPINE SULF 1 MG/10ml SYR IV PRN (23:31)
[2024-12-25] VITALS (47 sets, daily range): BP systolic 83–108; BP diastolic 49–68; PULSE 58–114; RESP 9–15; TEMP 96.8–98.3; O2SAT 90–98
[2024-12-25 04:41] LABS: Basophils # (auto) 0 10 ^3/uL (0-0.2); Basophils % (auto) 1.6 % (0.0-2.0); Eosinophils # (auto) 0 10 ^3/uL (0-0.8); Eosinophils % (auto) 0.4 % (0.0-7.0); Hematocrit 30.3 % (36.0-46.0); Hemoglobin 9.6 g/dL (12.2-16.2); Lymphocytes % (auto) 30.4 % (10.0-50.0); Mean Corpuscular Hemoglobin 30.2 pg (28.0-32.0); Mean Corpuscular Hgb Conc. 31.7 g/dL (32.0-36.0); Mean Corpuscular Volume 95.1 fL (80.0-100.0); Monocytes # (auto) 0.3 10 ^3/uL (0-1.3); Monocytes % (auto) 10.1 % (0.0-12.0); Neutrophils # (auto) 1.8 10 ^3/uL (1.6-8.6); Neutrophils % (auto) 57.5 % (37.0-80.0); Nucleated Red Blood Cells % 0.3 %; Platelet Count (auto) 72 10^3/uL (140-450); Red Blood Cells 3.19 10^6/uL (4.0-5.20); Red Cell Distribution Width 29.3 % (11.8-14.3); White Blood Cell 3.1 10^3/uL (4.4-10.8)
[2024-12-25 05:08] LABS: Alanine Aminotransferase 18 U/L (7-40); Alkaline Phosphatase 63 U/L (46-116); Anion Gap 8 (5-15); Aspartate Aminotransferase 35 U/L (13-40); BUN/Creatinine Ratio 21.2 (10.0-20.0); Bilirubin, Total 0.8 mg/dL (0.2-1.0); Potassium 4.3 mmol/L (3.5-5.1); Sodium 142 mmol/L (136-145)
[2024-12-25 05:13] LABS: Albumin 2.1 g/dL (3.2-4.8); Blood Urea Nitrogen 38 mg/dL (9-23); Calcium 7.9 mg/dL (8.7-10.4); Carbon Dioxide 17 mmol/L (20-31); Chloride 117 mmol/L (98-107); Glucose 64 mg/dL (74-106); Total Protein 3.7 g/dL (5.7-8.2)
[2024-12-25 06:51] LABS: Ovalocytes FEW; Platelet Estimate Decreased; Tear Drop Cells FEW
[2024-12-25 06:52] LABS: Anisocytosis Marked
[2024-12-25 08:19] LABS: Base Excess -7.2 mmol/L (-2.0-3.0)
--- NOTE | 2024-12-25 09:58 | DVHPN2 ---
Progress Note - Dictate Date Seen: Dec 25, 2024 Medical Necessity Reason Pt with a Central, PICC or Fol: Yes The following are medically ne: Waterman Catheter Reason for waterman catheter: Strict I&O Subjective Patient is extubated awake and arousable Nurse reports that she was having some trouble swallowing this morning and was choking on liquids No active GI bleeding is reported Patient is still very weak lethargic and mildly altered Ammonia level was up to 51 vital signs Vital Sign Date Time Temp Pulse Resp B/P (MAP) Pulse Ox O2 Delivery O2 Flow Rate FiO2 12/25/24 09:27 117 14 108/67 12/25/24 07:15 94 12/25/24 06:00 Room Air* 0 21 12/25/24 04:00 97.8 97.8 Total Intake and Output 12/24/24 12/24/24 12/25/24 15:00 23:00 07:00 Intake Total 650 ml 1180 ml 800 ml Output Total 400 ml 250 ml Balance 650 ml 780 ml 550 ml medications Current Medications Medications Dose Ordered Sig/Leti Route Start Time Stop Time Status Last Admin Dose Admin Ondansetron HCl 4 mg Q4HP PRN IV 12/13/24 00:15 12/21/24 19:59 4 MG Nitroglycerin 0.4 mg Q5MINP PRN SL 12/13/24 00:15 Ceftriaxone Sodium 50 ml @ 100 mls/hr DAILY@2000 IV 12/13/24 20:00 Cancel Pantoprazole Sodium 40 mg BID IV 12/16/24 22:00 12/24/24 22:04 40 MG Flumazenil 0.2 mg ONCE STAT IV 12/17/24 20:22 12/17/24 20:23 Cancel Lactulose 30 ml BID NG 12/19/24 22:00 12/24/24 22:04 30 ML Diagnostic Test (Pha) 1 strip ACHS 12/19/24 17:00 12/25/24 06:25 1 STRIP Dextrose 50 ml UD PRN IV 12/19/24 16:45 12/25/24 06:55 50 ML Dextrose 1,000 ml @ 50 mls/hr Q20H IV 12/20/24 10:00 Cancel Potassium Chloride 100 ml @ 100 mls/hr DAILY@1100 IV 12/20/24 11:00 12/23/24 12:32 100 MLS/HR Enteral Nutritional Formula 1,000 ml 50ML/HR GT 12/20/24 12:30 12/22/24 09:31 1,000 ML Morphine Sulfate 2 mg Q4HPRN PRN IV 12/21/24 16:00 12/25/24 09:27 2 MG Purified Water 300 ml Q4HR GT 12/21/24 22:00 12/25/24 06:24 300 ML Piperacillin Sod/ Tazobactam Sod 100 ml @ 25 mls/hr Q12HR IV 12/21/24 22:00 UNV Ertapenem 0.5 gm/ Sodium Chloride 50 ml @ 100 mls/hr DAILY IV 12/22/24 10:00 12/24/24 09:54 100 MLS/HR Norepinephrine Bitartrate 250 ml @ 1.875 mls/ hr Q24H IV 12/22/24 00:00 12/22/24 17:59 1.875 MLS/HR Midodrine 10 mg TID@0600,1200,1800 PO 12/23/24 18:00 12/25/24 06:25 10 MG Octreotide Acetate 100 mcg TID SUBCUT 12/23/24 14:00 12/25/24 06:25 100 MCG Sodium Chloride 1,000 ml @ 100 mls/hr Q10H IV 12/24/24 11:45 12/25/24 00:39 100 MLS/HR Atropine Sulfate 1 mg ONCE PRN IV 12/24/24 20:45 12/24/24 23:31 1 MG objective General Appearance: extubated, more awake arousable but still slightly altered. Pulmonary/Respiratory: Chest non-tender. Clear bilateral breath sounds Cardiovascular/Chest: Regular rate and rhythm. No murmurs. No JVD. Abdominal Exam: Abdomen is soft, nontender. Positive bowel sounds. Lower extremities: 2+ lower extremity edema, chronic venous stasis.; Multiple areas of ecchymosis and petechial hemorrhages on her chest Neuro/Mental Status: Alert, not answering question in words. laboratory and microbiology Laboratory Tests 12/25/24 03:26 Test 12/25/24 03:26 Range/Units Serum Glucose 64 L 74-106 mg/dL Problems(with codes): (1) Sputum culture positive for ESBL E. coli (2) Pneumonia (3) Thrombocytopenia (4) Pancytopenia (5) Liver cirrhosis (6) Hyperammonemia (7) Anemia (8) Acute renal failure (9) Hepatic encephalopathy (10) Gastropathy Prognosis Plan One dose of IV Tylenol for pain as requested by ICU nurse Repeat swallow evaluation If the patient is unable to swallow then we will reinsert NG tube and start medications and lactulose via NG tube Continue to monitor labs Supportive care Prognosis remains guarded Nutritional support Dietary Evaluation Review Comments: 1. Considering high propofol requirements, recommend EN initiation with trickle-tube feeds of Vital HP @ 15 ml/hr 2. Provide minimal free water flushes for tube patency of 30 ml Q6 hrs (120 ml total) or per MD discretion 3. Monitor BMP/lytes and replete to WNL/PRN Expected Outcomes/Goals: Improved nutritional status Plan discussed with: Patient, Other (ICU Nurse) LINA DIAZ MD Dec 25, 2024 09:57
--- NOTE | 2024-12-25 10:23 | DVHPN2 ---
Progress Note Date Seen: Dec 25, 2024 Medical Necessity Reason Pt with a Central, PICC or Fol: Yes The following are medically ne: Waterman Catheter Reason for waterman catheter: Strict I&O Subjective Patient reports: No new complaints Other Systems: Patient seen and examined by myself today in follow-up Objective vital signs Vital Sign Date Time Temp Pulse Resp B/P (MAP) Pulse Ox O2 Delivery O2 Flow Rate FiO2 12/25/24 10:04 103 14 83/55 12/25/24 07:15 94 12/25/24 06:00 Room Air* 0 21 12/25/24 04:00 97.8 97.8 Total Intake and Output 12/24/24 12/24/24 12/25/24 14:59 22:59 06:59 Intake Total 600 ml 1180 ml 800 ml Output Total 400 ml 250 ml Balance 600 ml 780 ml 550 ml medications Current Medications Medications Dose Ordered Sig/Leti Route Start Time Stop Time Status Last Admin Dose Admin Ondansetron HCl 4 mg Q4HP PRN IV 12/13/24 00:15 12/21/24 19:59 4 MG Nitroglycerin 0.4 mg Q5MINP PRN SL 12/13/24 00:15 Ceftriaxone Sodium 50 ml @ 100 mls/hr DAILY@2000 IV 12/13/24 20:00 Cancel Pantoprazole Sodium 40 mg BID IV 12/16/24 22:00 12/25/24 10:09 40 MG Flumazenil 0.2 mg ONCE STAT IV 12/17/24 20:22 12/17/24 20:23 Cancel Lactulose 30 ml BID NG 12/19/24 22:00 12/24/24 22:04 30 ML Diagnostic Test (Pha) 1 strip ACHS 12/19/24 17:00 12/25/24 06:25 1 STRIP Dextrose 50 ml UD PRN IV 12/19/24 16:45 12/25/24 06:55 50 ML Dextrose 1,000 ml @ 50 mls/hr Q20H IV 12/20/24 10:00 Cancel Potassium Chloride 100 ml @ 100 mls/hr DAILY@1100 IV 12/20/24 11:00 12/23/24 12:32 100 MLS/HR Enteral Nutritional Formula 1,000 ml 50ML/HR GT 12/20/24 12:30 12/22/24 09:31 1,000 ML Morphine Sulfate 2 mg Q4HPRN PRN IV 12/21/24 16:00 12/25/24 09:27 2 MG Purified Water 300 ml Q4HR GT 12/21/24 22:00 12/25/24 06:24 300 ML Piperacillin Sod/ Tazobactam Sod 100 ml @ 25 mls/hr Q12HR IV 12/21/24 22:00 UNV Ertapenem 0.5 gm/ Sodium Chloride 50 ml @ 100 mls/hr DAILY IV 12/22/24 10:00 12/25/24 10:09 100 MLS/HR Norepinephrine Bitartrate 250 ml @ 1.875 mls/ hr Q24H IV 12/22/24 00:00 12/22/24 17:59 1.875 MLS/HR Midodrine 10 mg TID@0600,1200,1800 PO 12/23/24 18:00 12/25/24 06:25 10 MG Octreotide Acetate 100 mcg TID SUBCUT 12/23/24 14:00 12/25/24 06:25 100 MCG Sodium Chloride 1,000 ml @ 100 mls/hr Q10H IV 12/24/24 11:45 12/25/24 00:39 100 MLS/HR Atropine Sulfate 1 mg ONCE PRN IV 12/24/24 20:45 12/24/24 23:31 1 MG Lactulose 300 ml BID [place] 12/25/24 22:00 Examination: LUNGS:Normal, CVS:Normal, MSK:Normal laboratory and microbiology Laboratory Tests 12/25/24 03:26 Test 12/25/24 03:26 Range/Units Serum Glucose 64 L 74-106 mg/dL Microbiology Date/Time Source Procedure Growth Status 12/22/24 22:40 Ascities Fluid Gram Stain - Final Resulted 12/22/24 22:40 Ascities Fluid Body Fluid Culture - Preliminary Resulted 12/16/24 18:17 Bronchial Washings Gram Stain - Final Complete 12/16/24 18:17 Respiratory Culture - Final Escherichia coli - ESBL Complete 12/13/24 12:54 Nose MRSA Screen - Final Complete 12/13/24 06:00 Urine - [place] Port Urine Culture - Final Escherichia coli Complete 12/12/24 20:00 Blood Blood Culture - Final NO GROWTH AFTER 5 DAYS OF INCUBATION. Complete Problem List/Assessment/Plan Problem List/Assessment/Plan Acute kidney injury superimposed Chronic Kidney Disease secondary hemodynamic mediated, FeNa < 1% Hepatorenal syndrome Acute respiratory failure, extubated Hepatic encephalopathy Urinary tract infection GI bleeding Liver cirrhosis Ascites Hypoalbuminemia Pancytopenia Recommendations Kidney function continued to improve Increased urine output Waterman catheter Strict I&Os kidney ultrasound reported no hydronephrosis Packed red blood cell transfusion p.r.n. IV antibiotics Albumin 25% IVPB KCL replacement Paracentesis Octreotide GI consult I will sign off this case please reconsult as needed thank you for the consult Plan discussed with: Patient My Orders My Orders Orders - ZAINAB QUIJANO MD Procedure Category Date Status Time Sod Chl 0.45% (Sodium PHA 12/24/24 In Process Chloride 0.45% Via 11:45 Dietary Evaluation Review Comments: 1. Considering high propofol requirements, recommend EN initiation with trickle-tube feeds of Vital HP @ 15 ml/hr 2. Provide minimal free water flushes for tube patency of 30 ml Q6 hrs (120 ml total) or per MD discretion 3. Monitor BMP/lytes and replete to WNL/PRN Expected Outcomes/Goals: Improved nutritional status ZAINAB QUIJANO MD Dec 25, 2024 10:23
[2024-12-25] MEDS: ACETAMINOPHEN 120 MG RECT SUPP PR ONE (10:45)
[2024-12-25] MEDS: DEXTROSE 10% 1,000 ML IV SCH (12:59)
[2024-12-25 13:04] LABS: Basophils # (auto) 0.1 10 ^3/uL (0-0.2); Basophils % (auto) 2.6 % (0.0-2.0); Eosinophils # (auto) 0 10 ^3/uL (0-0.8); Eosinophils % (auto) 0.2 % (0.0-7.0); Hematocrit 34.1 % (36.0-46.0); Hemoglobin 11.1 g/dL (12.2-16.2); Lymphocytes # (auto) 0.8 10 ^3/uL (0.4-5.4); Lymphocytes % (auto) 21.1 % (10.0-50.0); Mean Corpuscular Hgb Conc. 32.4 g/dL (32.0-36.0); Mean Corpuscular Volume 92.5 fL (80.0-100.0); Monocytes # (auto) 0.3 10 ^3/uL (0-1.3); Monocytes % (auto) 8.6 % (0.0-12.0); Neutrophils # (auto) 2.6 10 ^3/uL (1.6-8.6); Neutrophils % (auto) 67.5 % (37.0-80.0); Nucleated Red Blood Cells % 0.3 %; Platelet Count (auto) 92 10^3/uL (140-450); Red Blood Cells 3.69 10^6/uL (4.0-5.20); White Blood Cell 3.8 10^3/uL (4.4-10.8)
[2024-12-25 13:06] LABS: Red Cell Distribution Width 29.1 % (11.8-14.3)
[2024-12-25 13:10] LABS: Potassium 4.6 mmol/L (3.5-5.1); Sodium 142 mmol/L (136-145)
[2024-12-25 13:11] LABS: Anion Gap 10 (5-15); Chloride 114 mmol/L (98-107)
[2024-12-25 13:15] LABS: INR 1.2 (0.9-1.15); Prothrombin Time 12.5 sec (9.3-11.8)
[2024-12-25 13:16] LABS: BUN/Creatinine Ratio 21.5 (10.0-20.0); Glucose 84 mg/dL (74-106)
[2024-12-25 13:17] LABS: Blood Urea Nitrogen 41 mg/dL (9-23); Calcium 8.3 mg/dL (8.7-10.4); Carbon Dioxide 18 mmol/L (20-31); Magnesium 1.9 mg/dL (1.6-2.6)
[2024-12-25 13:19] LABS: Phosphorus 2.8 mg/dL (2.4-5.1)
[2024-12-25] MEDS ORDERED: CLINIMIX PER PHARMACY 0 ML IV SCH (14:30)
--- NOTE | 2024-12-25 16:15 | DVHPN2 ---
Subjective This is a 74-year-old female with a known history of end-stage liver disease, hepatic encephalopathy who initially presented to the hospital with altered mental status eventually found to have hematemesis in the ER intubated for airway protection. Patient is currently extubated on continuous O2 supplementation by nasal cannula, patient's mental status is continues to improve. Overnight events noted. Patient's could not swallow today, also blood sugars were running low currently on D10 drip. Also urine about produce has been decreasing. Reviewed: Care Plan Changes from previous H/P or p: No Changes Objective Vitals Vital Signs Date Time Temp Pulse Resp B/P (MAP) Pulse Ox O2 Delivery O2 Flow Rate FiO2 12/25/24 14:00 81 12/25/24 14:00 9 97 Room Air* 0 21 12/25/24 14:00 102/63 (76) 12/25/24 12:00 97.4 97.4 Intake/Output Intake and Output 12/25/24 07:00 Intake Total 2630 ml Output Total 650 ml Balance 1980 ml Intake Oral 380 ml IV Total 2250 ml Output Urine Total 250 ml Stool Total 400 ml Exam HEENT pupils are reactive Neck is supple CVS S1-S2 regular rate and rhythm Respiratory diminished breath sounds bases GI positive bowel sounds positive ascites Extremity trace edema [employer] patient minimally following commands Medications Current Medications Medications Dose Ordered Sig/Leti Route Start Time Stop Time Status Last Admin Dose Admin Ondansetron HCl 4 mg Q4HP PRN IV 12/13/24 00:15 12/21/24 19:59 4 MG Nitroglycerin 0.4 mg Q5MINP PRN SL 12/13/24 00:15 Ceftriaxone Sodium 50 ml @ 100 mls/hr DAILY@1999 IV 12/13/24 20:00 Cancel Pantoprazole Sodium 40 mg BID IV 12/16/24 22:00 12/25/24 10:09 40 MG Flumazenil 0.2 mg ONCE STAT IV 12/17/24 20:22 12/17/24 20:23 Cancel Lactulose 30 ml BID NG 12/19/24 22:00 12/24/24 22:04 30 ML Diagnostic Test (Pha) 1 strip ACHS 12/19/24 17:00 12/25/24 11:36 1 STRIP Dextrose 50 ml UD PRN IV 12/19/24 16:45 12/25/24 06:55 50 ML Dextrose 1,000 ml @ 50 mls/hr Q20H IV 12/20/24 10:00 Cancel Potassium Chloride 100 ml @ 100 mls/hr DAILY@1100 IV 12/20/24 11:00 12/25/24 10:47 100 MLS/HR Enteral Nutritional Formula 1,000 ml 50ML/HR GT 12/20/24 12:30 12/22/24 09:31 1,000 ML Morphine Sulfate 2 mg Q4HPRN PRN IV 12/21/24 16:00 12/25/24 09:27 2 MG Purified Water 300 ml Q4HR GT 12/21/24 22:00 12/25/24 06:24 300 ML Piperacillin Sod/ Tazobactam Sod 100 ml @ 25 mls/hr Q12HR IV 12/21/24 22:00 UNV Ertapenem 0.5 gm/ Sodium Chloride 50 ml @ 100 mls/hr DAILY IV 12/22/24 10:00 12/25/24 10:09 100 MLS/HR Norepinephrine Bitartrate 250 ml @ 1.875 mls/ hr Q24H IV 12/22/24 00:00 12/22/24 17:59 1.875 MLS/HR Midodrine 10 mg TID@0600,1200,1800 PO 12/23/24 18:00 12/25/24 06:25 10 MG Octreotide Acetate 100 mcg TID SUBCUT 12/23/24 14:00 12/25/24 13:54 100 MCG Sodium Chloride 1,000 ml @ 100 mls/hr Q10H IV 12/24/24 11:45 12/25/24 00:39 100 MLS/HR Atropine Sulfate 1 mg ONCE PRN IV 12/24/24 20:45 12/24/24 23:31 1 MG Lactulose 300 ml BID [place] 12/25/24 22:00 Dextrose 1,000 ml @ 50 mls/hr Q20H IV 12/25/24 12:00 12/25/24 21:59 12/25/24 12:59 50 MLS/HR Amino Acids 0 ml @ 0 mls/hr PER PHARMACY IV 12/25/24 14:30 Amino Acids/ Electrolytes/ Dextrose 1,000 ml @ 41 mls/hr DAILY@2200 IV 12/25/24 22:00 Laboratory Results Laboratory Tests 12/25/24 12:30 Chemistry Test 12/25/24 03:26 12/25/24 12:30 Albumin 2.1 g/dL (3.2-4.8) L Calcium Level 7.9 mg/dL (8.7-10.4) L 8.3 mg/dL (8.7-10.4) L Magnesium Level 1.8 mg/dL (1.6-2.6) 1.9 mg/dL (1.6-2.6) Total Protein 3.7 g/dL (5.7-8.2) L Phosphorus Level 2.8 mg/dL (2.4-5.1) Coagulation Test 12/25/24 12:30 Prothrombin Time 12.5 sec (9.3-11.8) H Prothrombin Time INR 1.20 (0.9-1.15) H Activated Partial Thromboplast Time 41.0 SEC (24.5-34.5) H LFT Test 12/25/24 03:26 Alanine Aminotransferase (ALT) 18 U/L (7-40) Alkaline Phosphatase 63 U/L (46-116) Aspartate Amino Transferase (AST) 35 U/L (13-40) Total Bilirubin 0.8 mg/dL (0.2-1.0) Urinalysis Test 12/13/24 06:00 Urine Color Yellow (Yellow) Urine Clarity Turbid (Clear) H Urine pH 5.5 (5.0-9.0) Urine Specific [place] 1.016 (1.001-1.035) Urine Protein Trace (Negative) H Urine Ketones Negative (Negative) Urine Blood Trace /uL (Negative) H Urine Nitrite Negative (Negative) Urine Bilirubin Negative (Negative) Urine Urobilinogen Normal mg/dL (Negative) Urine Leukocyte Esterase 3+ /uL (Negative) Urine RBC 2 /hpf (0 - 4) Urine WBC Clumps Present /hpf (None Seen) Urine Microscopic WBC 177 /HPF (0-5) H Urine Squamous Epithelial Cells Few /hpf (<5) Urine Bacteria Many /hpf (None Seen) H Urine Hyaline Casts Few /lpf (0 - 2) Urine Mucus Few (None Seen) Urine Creatinine 134.12 mg/dL (30.0-125.0) H Urine Protein/Creatinine Ratio 0.21 Urine Sodium < 10 mmol/L (40-220) L Urine Glucose Normal mg/dL (Normal) Urine Total Protein 27.9 mg/dL (1-14) H Blood Gas Results Test 12/25/24 08:09 Arterial Blood pH 7.392 (7.350-7.450) FiO2 % 21.0 Microbiology Microbiology Date/Time Source Procedure Growth Status 12/22/24 22:40 Ascities Fluid Gram Stain - Final Resulted 12/22/24 22:40 Ascities Fluid Body Fluid Culture - Preliminary Resulted 12/16/24 18:17 Bronchial Washings Gram Stain - Final Complete 12/16/24 18:17 Respiratory Culture - Final Escherichia coli - ESBL Complete 12/13/24 12:54 Nose MRSA Screen - Final Complete 12/13/24 06:00 Urine - [place] Urine Culture - Final Escherichia coli Complete 12/12/24 20:00 Blood Blood Culture - Final NO GROWTH AFTER 5 DAYS OF INCUBATION. Complete Assessment/Plan Assessment/Plan 74-year-old female with known history of end-stage liver disease, who initially presented to the hospital with a hematemesis altered mental status found to have 1. Acute hypoxic respiratory failure status post intubation, status post extubation currently on O2 supplementation continuous nasal cannula 2. Upper GI bleed with esophageal varices and severe gastropathy status post EGD, status post biopsy of the gastric polyp and snare polypectomy 3. Hepatic encephalopathy, improved significantly 4. ESBL pneumonia 5. ESBL UTI 6. Acute kidney injury suspected secondary to vasomotor nephropathy, improving 7. Moderate ascites status post paracentesis 8. Hyperammonemia, resolved 9. Hypernatremia, improved 10. Hypoglycemia currently on D10 drip 11. Difficulty in swallowing, we will start clinimix overnight -continue D10 drip, switch lactulose to rectal route, give a dose of Lasix 40 IV x1 -continue Protonix lactulose as tolerated follow up with GI recommendation follow up Pulmonary recommendations Continue antibiotics follow up Infectious Disease recommendations. Plan discussed with: Patient, Other My Orders Orders - JUMANA MANCILLA MD Procedure Category Date Status Time Abg W/ Co-Ox RT 12/25/24 Logged 07:50 Furosemide Injection PHA 12/25/24 In Process (Lasix Injection) 17:00 Date of Service: Dec 25, 2024 Billing Provider: JUMANA MANCILLA MD Common Visit Codes: NOT BILLABLE JUMANA MANCILLA MD Dec 25, 2024 16:15
[2024-12-25] MEDS: FUROSEMIDE 40 MG/4 ML VIAL IV ONE (17:14)
--- NOTE | 2024-12-25 19:58 | DVHPN2 ---
Consult Progress Note Date Seen: Dec 25, 2024 Subjective Patient reports: Other (altered today , is confused and lethargic , has an NG tube to get lactalose and remains off pressures . cathater site has some bleeding and is volume overloaded with crackles in lungs , swelling in arms and legs ) Objective vital signs Vital Sign Date Time Temp Pulse Resp B/P (MAP) Pulse Ox O2 Delivery O2 Flow Rate FiO2 12/25/24 18:00 83 10 92/68 (76) 97 12/25/24 18:00 Room Air* 0 21 12/25/24 16:00 97.8 97.8 Total Intake and Output 12/24/24 12/24/24 12/25/24 15:00 23:00 07:00 Intake Total 650 ml 1180 ml 800 ml Output Total 400 ml 250 ml Balance 650 ml 780 ml 550 ml medications Current Medications Medications Dose Ordered Sig/Leti Route Start Time Stop Time Status Last Admin Dose Admin Ondansetron HCl 4 mg Q4HP PRN IV 12/13/24 00:15 12/21/24 19:59 4 MG Nitroglycerin 0.4 mg Q5MINP PRN SL 12/13/24 00:15 Ceftriaxone Sodium 50 ml @ 100 mls/hr DAILY@2000 IV 12/13/24 20:00 Cancel Pantoprazole Sodium 40 mg BID IV 12/16/24 22:00 12/25/24 10:09 40 MG Flumazenil 0.2 mg ONCE STAT IV 12/17/24 20:22 12/17/24 20:23 Cancel Lactulose 30 ml BID NG 12/19/24 22:00 12/24/24 22:04 30 ML Diagnostic Test (Pha) 1 strip ACHS 12/19/24 17:00 12/25/24 16:42 1 STRIP Dextrose 50 ml UD PRN IV 12/19/24 16:45 12/25/24 06:55 50 ML Dextrose 1,000 ml @ 50 mls/hr Q20H IV 12/20/24 10:00 Cancel Potassium Chloride 100 ml @ 100 mls/hr DAILY@1100 IV 12/20/24 11:00 12/25/24 10:47 100 MLS/HR Enteral Nutritional Formula 1,000 ml 50ML/HR GT 12/20/24 12:30 12/22/24 09:31 1,000 ML Morphine Sulfate 2 mg Q4HPRN PRN IV 12/21/24 16:00 12/25/24 09:27 2 MG Purified Water 300 ml Q4HR GT 12/21/24 22:00 12/25/24 06:24 300 ML Piperacillin Sod/ Tazobactam Sod 100 ml @ 25 mls/hr Q12HR IV 12/21/24 22:00 UNV Ertapenem 0.5 gm/ Sodium Chloride 50 ml @ 100 mls/hr DAILY IV 12/22/24 10:00 12/25/24 10:09 100 MLS/HR Norepinephrine Bitartrate 250 ml @ 1.875 mls/ hr Q24H IV 12/22/24 00:00 12/22/24 17:59 1.875 MLS/HR Midodrine 10 mg TID@0600,1200,1800 PO 12/23/24 18:00 12/25/24 06:25 10 MG Octreotide Acetate 100 mcg TID SUBCUT 12/23/24 14:00 12/25/24 13:54 100 MCG Atropine Sulfate 1 mg ONCE PRN IV 12/24/24 20:45 12/24/24 23:31 1 MG Lactulose 300 ml BID [place] 12/25/24 22:00 Dextrose 1,000 ml @ 50 mls/hr Q20H IV 12/25/24 12:00 12/25/24 21:59 12/25/24 12:59 50 MLS/HR Amino Acids 0 ml @ 0 mls/hr PER PHARMACY IV 12/25/24 14:30 Amino Acids/ Electrolytes/ Dextrose 1,000 ml @ 41 mls/hr DAILY@2200 IV 12/25/24 22:00 Physical Exam: General: Patient is obtunded, only responsive to name. Neck: Supple. No masses. HEENT: PERRL. Normal lids and conjunctiva. Moist mucous membranes. Oropharynx without lesions, exudates or excessive erythema. Normal appearance of the external aspects of the nose and ears. Heart: Regular rhythm, normal rate. No murmur. No lower extremity edema. Lungs: Normal respiratory effort. Clear to auscultation bilaterally. No wheezes. No crackles. Abdomen: Distended abdomen with positive fluid wave. Msk: Diffuse edema in lower extremities. Skin: Mild jaundice, bruising on face. Neuro: Altered mental status; only alert to name. Psych: Unable to assess due to altered mental status. Oriented to person, place, time, and situation: No. laboratory and microbiology Laboratory Tests 12/25/24 12:30 Test 12/25/24 12:30 Range/Units Serum Glucose 84 74-106 mg/dL Problem List/Assessment/Plan Problems(with codes): (1) Gastropathy (2) Sputum culture positive for ESBL E. coli (3) Pneumonia (4) Hypotension (5) Thrombocytopenia (6) Pancytopenia (7) Liver cirrhosis (8) Ascites (9) Hyperammonemia (10) Anemia (11) Acute renal failure (12) Hepatic encephalopathy (13) Hematemesis Problem List/Assessment/Plan ID Problem List: - Decompensated liver cirrhosis - Hepatic encephalopathy - Esophageal varices - ESBL E. coli pneumonia - E. coli UTI - Acute hypoxic respiratory failure - Septic shock - GER vs. CKD - Thrombocytopenia - Anemia - Diabetes mellitus - Diarrhea - Altered mental status - Anasarca Assessment This is a 74 y.o. female with a past medical history of liver cirrhosis and diabetes mellitus, who presents with bloody vomiting and altered mental status. Patient was only alert to her name upon admission with an elevated ammonia level of 197. She exhibited large volume ascites, anemia (Hb 9.6), thrombocytopenia (platelets 75), and leukopenia (WBC 2.7). Imaging revealed a cirrhotic liver with large volume ascites, esophageal varices, and evidence of pneumonia. She underwent upper endoscopy revealing trace distal esophageal varices without stigmata of bleeding, moderate to severe gastropathy and gastritis with multiple areas of oozing, and removal of gastric polyps via hot snare polypectomy. BAL cultures are growing ESBL E. coli sensitive to ertapenem, gentamicin, meropenem, and Zosyn; resistant to cefepime. 12/18: sodium is 150 , BUN is 59 which is likely contributing to patients altered mental status 12/19: responding to antibiotic , diarrhea is likely related to refaxmen use and trying to improve mentation with adequate bowel movements 12/20: sodium is 153 12/21: sodium is 154 12/22: peritoneal fluid analysis shows 5pnms 29 wbcs which is not consistent with sbp 12/23: patients peritoneal fluid cultures are no growth to date , pneumonia appears resolving 12/25: patient is still struggling with intermitted waning and confusion Plan: - follow up on peritoneal cultures - continue ertapenem to reduce sodium for an additional 7 day course - Monitor renal function; defer management of GER to nephrology. - Continue aspiration precautions; keep patient upright at 30 degrees. - Follow up on blood cultures; low concern for SBP at this time. - Provide pressor support as needed to maintain MAP >65 mmHg. - Fluid restriction due to liver cirrhosis and recurrent ascites. - Defer management of hepatic encephalopathy to GI team and primary care team. - Monitor electrolyte levels; sodium is slowly rising. - Continue rifaximin for hepatic encephalopathy. - Monitor for signs of recurrent pneumonia; repeat sputum cultures and chest X- ray if needed. Authorized and Performed by: Anai Ureña Total critical care time: Approximately 76 minutes Due to a high probability of clinically significant, life threatening deterioration, the patient required my highest level of preparedness to intervene emergently and I personally spent this critical care time directly and personally managing the patient. This critical care time included obtaining a history; examining the patient; pulse oximetry; ordering and review of studies; arranging urgent treatment with development of a management plan; evaluation of patient's response to treatment; frequent reassessment; and, discussions with other providers. This critical care time was performed to assess and manage the high probability of imminent, life-threatening deterioration that could result in multi-organ failure. It was exclusive of separately billable procedures and treating other patients and teaching time. Isolation Precautions: contact ESBL Plan discussed with: Other Dietary Evaluation Review Comments: 1. Considering high propofol requirements, recommend EN initiation with trickle-tube feeds of Vital HP @ 15 ml/hr 2. Provide minimal free water flushes for tube patency of 30 ml Q6 hrs (120 ml total) or per MD discretion 3. Monitor BMP/lytes and replete to WNL/PRN Expected Outcomes/Goals: Improved nutritional status ANAI UREÑA MD Dec 25, 2024 19:58
[2024-12-25] MEDS: LACTULOSE 10g/15ml SOLN 473ML PR SCH (21:30)
[2024-12-25] MEDS: AMINO ACID INFUSION IN D10W 1,000 ML IV SCH (22:02)
--- NOTE | 2024-12-25 23:16 | DVHPN2 ---
Progress Note - Dictate Date Seen: Dec 25, 2024 Medical Necessity Reason Pt with a Central, PICC or Fol: Yes The following are medically ne: Waterman Catheter Reason for waterman catheter: Strict I&O Subjective Patient seen and examined at bedside. Breathing on room air Overnight events reviewed. vital signs Vital Sign Date Time Temp Pulse Resp B/P (MAP) Pulse Ox O2 Delivery O2 Flow Rate FiO2 12/25/24 20:00 10 96 Room Air* 0 21 12/25/24 20:00 77 12/25/24 18:00 92/68 (76) 12/25/24 16:00 97.8 97.8 Total Intake and Output 12/24/24 12/24/24 12/25/24 15:00 23:00 07:00 Intake Total 650 ml 1180 ml 800 ml Output Total 400 ml 250 ml Balance 650 ml 780 ml 550 ml medications Current Medications Medications Dose Ordered Sig/Leti Route Start Time Stop Time Status Last Admin Dose Admin Ondansetron HCl 4 mg Q4HP PRN IV 12/13/24 00:15 12/21/24 19:59 4 MG Nitroglycerin 0.4 mg Q5MINP PRN SL 12/13/24 00:15 Ceftriaxone Sodium 50 ml @ 100 mls/hr DAILY@2000 IV 12/13/24 20:00 Cancel Pantoprazole Sodium 40 mg BID IV 12/16/24 22:00 12/25/24 21:29 40 MG Flumazenil 0.2 mg ONCE STAT IV 12/17/24 20:22 12/17/24 20:23 Cancel Lactulose 30 ml BID NG 12/19/24 22:00 12/25/24 22:02 30 ML Diagnostic Test (Pha) 1 strip ACHS 12/19/24 17:00 12/25/24 21:53 1 STRIP Dextrose 50 ml UD PRN IV 12/19/24 16:45 12/25/24 06:55 50 ML Dextrose 1,000 ml @ 50 mls/hr Q20H IV 12/20/24 10:00 Cancel Potassium Chloride 100 ml @ 100 mls/hr DAILY@1100 IV 12/20/24 11:00 12/25/24 10:47 100 MLS/HR Enteral Nutritional Formula 1,000 ml 50ML/HR GT 12/20/24 12:30 12/22/24 09:31 1,000 ML Morphine Sulfate 2 mg Q4HPRN PRN IV 12/21/24 16:00 12/25/24 09:27 2 MG Purified Water 300 ml Q4HR GT 12/21/24 22:00 12/25/24 06:24 300 ML Piperacillin Sod/ Tazobactam Sod 100 ml @ 25 mls/hr Q12HR IV 12/21/24 22:00 UNV Ertapenem 0.5 gm/ Sodium Chloride 50 ml @ 100 mls/hr DAILY IV 12/22/24 10:00 12/25/24 10:09 100 MLS/HR Norepinephrine Bitartrate 250 ml @ 1.875 mls/ hr Q24H IV 12/22/24 00:00 12/22/24 17:59 1.875 MLS/HR Midodrine 10 mg TID@0600,1200,1800 PO 12/23/24 18:00 12/25/24 06:25 10 MG Octreotide Acetate 100 mcg TID SUBCUT 12/23/24 14:00 12/25/24 21:28 100 MCG Atropine Sulfate 1 mg ONCE PRN IV 12/24/24 20:45 12/24/24 23:31 1 MG Lactulose 300 ml BID NC 12/25/24 22:00 12/25/24 21:30 300 ML Amino Acids 0 ml @ 0 mls/hr PER PHARMACY IV 12/25/24 14:30 Amino Acids/ Electrolytes/ Dextrose 1,000 ml @ 41 mls/hr DAILY@2200 IV 12/25/24 22:00 12/25/24 22:02 41 MLS/HR objective Gen.: Patient lying in bed in no apparent distress. On room air. Head: Normocephalic, atraumatic. Eyes: EOMI/PERRLA. Ears: Normal hearing. Normal anatomy. Neck/trachea: Trachea midline, supple. Nose: Normal external anatomy. Mouth: Moist mucous membranes. Chest: Decreased air entry bilaterally. No wheezing or rhonchi. Cardiovascular: Positive S1, positive S2. Regular rate and rhythm. Abdomen: Positive bowel sounds in all 4 quadrants. Soft, non-tender, non- distended. : Deferred. Rectal: Deferred. Skin: Warm, dry. Intact. Extremities: 2+ radial pulses bilaterally. No lower extremity edema. Neuro: Awake, alert, oriented x2. No gross motor or sensory deficits. Cranial nerves II through XII intact. Gait not assessed laboratory and microbiology Laboratory Tests 12/25/24 12:30 Test 12/25/24 12:30 Range/Units Serum Glucose 84 74-106 mg/dL Assessment/Plan Impression: Acute hypoxic respiratory failure Hepatic encephalopathy Hyperammonemia Liver cirrhosis Large volume ascites Thrombocytopenia Anemia, chronic Acute on chronic kidney disease Lactic acidosis Metabolic acidosis Events: Remains on room air. Supplemental oxygen PRN Labs reviewed Accu-Cheks, monitor for hypoglycemia - glucose today 68 D10W started Started Clinimix for nutritional support ABG reviewed, compensated - metabolic acidosis w/ respiratory compensation. Head of bed elevation Aspiration precautions Supportive care Continue abx Check ammonia, improving. Off pressors - monitor hemodynamics Monitor hemoglobin -11.1 g/dL Protonix BID IV fluids with 1/2 NS at 100 ml/hr. Monitor renal function - Cr trending down to 1.91 Monitor electrolytes. Supplement as necessary. Potassium supplemented Nephrology recommendations appreciated. Metabolic acidosis - bicarb 18 On D5W. Tube feeds for nutritional support Status post paracentesis, removed 4.5 L on 12/22/24 Labs and imaging reviewed. Rest of plan as noted below. Plan: s/p extubation on 12/17/24 Supplemental oxygen PRN Titrate to keep O2 sats above 92%. Pressors if necessary for hemodynamic support. Titrate to keep MAP above 65 mmHg/SBP above 90 mmHg. Continue antibiotics. Follow up cultures Bronchial cultures grew ESBL E.coli Monitor renal function due to acute kidney injury. Monitor electrolytes. Supplement as necessary. Monitor ins and outs Nephrology recommendations appreciated. Metabolic acidosis - received one ampule of bicarbonate on 12/13. Status post paracentesis, albumin given. Nutritional support. Accu-Cheks, ISS. GI/DVT prophylaxis. Condition: Critical Prognosis: Guarded given multiple comorbidities. Rest of plan per hospitalist and other consultants. A total of 35 minutes of critical care time was spent reviewing the patient record, examining the patient, making a diagnostic and therapeutic plan, discussing this plan with the medical personnel, following up on diagnostic studies and following the patient for clinical stability excluding any and all procedures. At least 50% of this time was spent in direct, [id number] contact. Thank you MASSIEL Arias for allowing me to participate in this patient's care. Further recommendations will depend on patient's clinical course. Please do not hesitate to contact me if you have any questions or concerns. This medical document was created using an electronic medical record system with [employer] dictation system. Although this document has been carefully reviewed, there may still be some phonetic and typographical errors. These areas are purely typographical due to imperfections of the software programs, and do not reflect any compromise in the patient's medical care. Dietary Evaluation Review Comments: 1. Considering high propofol requirements, recommend EN initiation with trickle-tube feeds of Vital HP @ 15 ml/hr 2. Provide minimal free water flushes for tube patency of 30 ml Q6 hrs (120 ml total) or per MD discretion 3. Monitor BMP/lytes and replete to WNL/PRN Expected Outcomes/Goals: Improved nutritional status Plan discussed with: Patient, Other (GLADYS Garcai) Critical Care Time(min): 35 SCOTT NELSON MD Dec 25, 2024 23:16
[2024-12-26] VITALS (52 sets, daily range): BP systolic 93–128; BP diastolic 53–79; PULSE 57–92; RESP 9–73; TEMP 97.9–98.1; O2SAT 95–100
[2024-12-26 03:53] LABS: Basophils # (auto) 0.1 10 ^3/uL (0-0.2); Basophils % (auto) 2.1 % (0.0-2.0); Eosinophils # (auto) 0 10 ^3/uL (0-0.8); Eosinophils % (auto) 0.2 % (0.0-7.0); Hematocrit 29.6 % (36.0-46.0); Hemoglobin 9.7 g/dL (12.2-16.2); Lymphocytes # (auto) 0.7 10 ^3/uL (0.4-5.4); Lymphocytes % (auto) 20.7 % (10.0-50.0); Mean Corpuscular Hemoglobin 30.9 pg (28.0-32.0); Mean Corpuscular Hgb Conc. 32.8 g/dL (32.0-36.0); Mean Corpuscular Volume 94.1 fL (80.0-100.0); Monocytes # (auto) 0.3 10 ^3/uL (0-1.3); Monocytes % (auto) 8.8 % (0.0-12.0); Neutrophils # (auto) 2.3 10 ^3/uL (1.6-8.6); Neutrophils % (auto) 68.2 % (37.0-80.0); Nucleated Red Blood Cells % 0.1 %; Platelet Count (auto) 84 10^3/uL (140-450); Red Blood Cells 3.15 10^6/uL (4.0-5.20); White Blood Cell 3.4 10^3/uL (4.4-10.8)
[2024-12-26 04:02] LABS: Red Cell Distribution Width 29.6 % (11.8-14.3)
[2024-12-26 04:05] LABS: Sodium 140 mmol/L (136-145)
[2024-12-26 04:06] LABS: Anion Gap 7 (5-15)
[2024-12-26 04:11] LABS: BUN/Creatinine Ratio 19.3 (10.0-20.0); GFR African American 32 mL/min; GFR Non-African American 26 mL/min
[2024-12-26 04:12] LABS: Magnesium 1.8 mg/dL (1.6-2.6)
[2024-12-26 04:13] LABS: Phosphorus 2.6 mg/dL (2.4-5.1)
[2024-12-26 04:14] LABS: Albumin 2.2 g/dL (3.2-4.8); Blood Urea Nitrogen 38 mg/dL (9-23); Carbon Dioxide 20 mmol/L (20-31); Chloride 113 mmol/L (98-107); Glucose 180 mg/dL (74-106)
[2024-12-26 05:31] LABS: Anisocytosis Marked; Ovalocytes FEW; Platelet Estimate Decreased; Target Cell FEW
--- NOTE | 2024-12-26 12:44 | DVHPN2 ---
Progress Note Date Seen: Dec 26, 2024 Resident Creating Document: PATRICIA BRITTON RESIDENT Medical Necessity Reason Pt with a Central, PICC or Fol: Yes The following are medically ne: Waterman Catheter Reason for waterman catheter: Strict I&O Subjective Review of Systems patient is oriented and feeling better, waiting for swallow evaluation Patient reports: No new complaints, Feels better Objective vital signs Vital Sign Date Time Temp Pulse Resp B/P (MAP) Pulse Ox O2 Delivery O2 Flow Rate FiO2 12/26/24 11:45 72 10 98 12/26/24 10:00 Room Air* 0 21 12/26/24 08:00 98.0 98.0 Total Intake and Output 12/25/24 12/25/24 12/26/24 15:00 23:00 07:00 Intake Total 350 ml 241 ml 328 ml Output Total 100 ml 400 ml Balance 350 ml 141 ml -72 ml medications Current Medications Medications Dose Ordered Sig/Leti Route Start Time Stop Time Status Last Admin Dose Admin Ondansetron HCl 4 mg Q4HP PRN IV 12/13/24 00:15 12/21/24 19:59 4 MG Nitroglycerin 0.4 mg Q5MINP PRN SL 12/13/24 00:15 Ceftriaxone Sodium 50 ml @ 100 mls/hr DAILY@2000 IV 12/13/24 20:00 Cancel Pantoprazole Sodium 40 mg BID IV 12/16/24 22:00 12/26/24 10:11 40 MG Flumazenil 0.2 mg ONCE STAT IV 12/17/24 20:22 12/17/24 20:23 Cancel Lactulose 30 ml BID NG 12/19/24 22:00 12/25/24 22:02 30 ML Diagnostic Test (Pha) 1 strip ACHS 12/19/24 17:00 12/26/24 07:01 1 STRIP Dextrose 50 ml UD PRN IV 12/19/24 16:45 12/25/24 06:55 50 ML Dextrose 1,000 ml @ 50 mls/hr Q20H IV 12/20/24 10:00 Cancel Potassium Chloride 100 ml @ 100 mls/hr DAILY@1100 IV 12/20/24 11:00 12/25/24 10:47 100 MLS/HR Enteral Nutritional Formula 1,000 ml 50ML/HR GT 12/20/24 12:30 12/22/24 09:31 1,000 ML Morphine Sulfate 2 mg Q4HPRN PRN IV 12/21/24 16:00 12/25/24 09:27 2 MG Purified Water 300 ml Q4HR GT 12/21/24 22:00 12/25/24 06:24 300 ML Piperacillin Sod/ Tazobactam Sod 100 ml @ 25 mls/hr Q12HR IV 12/21/24 22:00 UNV Ertapenem 0.5 gm/ Sodium Chloride 50 ml @ 100 mls/hr DAILY IV 12/22/24 10:00 12/26/24 10:15 100 MLS/HR Norepinephrine Bitartrate 250 ml @ 1.875 mls/ hr Q24H IV 12/22/24 00:00 12/22/24 17:59 1.875 MLS/HR Midodrine 10 mg TID@0600,1200,1800 PO 12/23/24 18:00 12/25/24 06:25 10 MG Octreotide Acetate 100 mcg TID SUBCUT 12/23/24 14:00 12/26/24 06:16 100 MCG Atropine Sulfate 1 mg ONCE PRN IV 12/24/24 20:45 12/24/24 23:31 1 MG Lactulose 300 ml BID [place] 12/25/24 22:00 12/25/24 21:30 300 ML Amino Acids 0 ml @ 0 mls/hr PER PHARMACY IV 12/25/24 14:30 Amino Acids/ Electrolytes/ Dextrose 1,000 ml @ 41 mls/hr DAILY@2200 IV 12/25/24 22:00 12/25/24 22:02 41 MLS/HR Examination General Appearance: extubated, more awake arousable but still slightly altered. Pulmonary/Respiratory: Chest non-tender. Clear bilateral breath sounds Cardiovascular/Chest: Regular rate and rhythm. No murmurs. No JVD. Abdominal Exam: Abdomen is soft, nontender. Positive bowel sounds. Lower extremities: 2+ lower extremity edema, chronic venous stasis.; Multiple areas of ecchymosis and petechial hemorrhages on her chest Neuro/Mental Status: Alert, not answering question in words. laboratory and microbiology Laboratory Tests 12/26/24 03:36 Test 12/26/24 03:36 Range/Units Serum Glucose 180 H 74-106 mg/dL Microbiology Date/Time Source Procedure Growth Status 12/22/24 22:40 Ascities Fluid Gram Stain - Final Resulted 12/22/24 22:40 Ascities Fluid Body Fluid Culture - Preliminary Resulted 12/16/24 18:17 Bronchial Washings Gram Stain - Final Complete 12/16/24 18:17 Respiratory Culture - Final Escherichia coli - ESBL Complete 12/13/24 12:54 Nose MRSA Screen - Final Complete 12/13/24 06:00 Urine - Waterman [place] Urine Culture - Final Escherichia coli Complete 12/12/24 20:00 Blood Blood Culture - Final NO GROWTH AFTER 5 DAYS OF INCUBATION. Complete Problem List/Assessment/Plan Problem List/Assessment/Plan Liver cirrhosis Trace distal esophageal varices without bleeding Active upper GI bleed due to Severe gastropathy with gastritis Antral polyps of stomach Hepatic encephalopathy Esophageal variceal Moderate ascites Hypoalbuminemia Hyperammonemia Upper GI bleed Thrombocytopenia GER hemodynamically mediated UTI Plan/recommendation. Dr Foley Pending swallow evaluation, start puree diet once pass the evaluation. EGD on 12/14/2024:1. Patient had trace distal esophageal varices without stigmata of bleeding from the varices 2. Patient had a moderate amount of old blood in the stomach after this was aspirated patient was noted to have underlying [id number] gastropathy and gastritis with multiple areas of oozing from the stomach lining 3. There was a 1.5-2 cm pre-pyloric inflammatory antral polyp that was oozing, it was initially biopsied and then removed completely via hot snare polypectomy 4. There were three benign-appearing gastric polyps in the body of the that were seen and removed via hot snare polypectomy 5. Otherwise normal examination up to the 2nd and 3rd part of the duodenum -Puree diet, advance as tolerated. -continue Protonix 40 mg IV b.i.d. -1 unit of PRBC given hemoglobin less than eight, with active GI bleed. 2 PRBC has been given yesterday. -administration IV albumin given after paracentesis: Removed fluid around 6.9 L. -closely monitor fluid and electrolyte status, maintain map greater than 65. Can initiate vasopressor Levophed if needed. -we will continue to monitor and following up. Plan discussed with: Patient, Daughter Dietary Evaluation Review Comments: 1. Considering high propofol requirements, recommend EN initiation with trickle-tube feeds of Vital HP @ 15 ml/hr 2. Provide minimal free water flushes for tube patency of 30 ml Q6 hrs (120 ml total) or per MD discretion 3. Monitor BMP/lytes and replete to WNL/PRN Expected Outcomes/Goals: Improved nutritional status PATRICIA BRITTON RESIDENT Dec 26, 2024 12:43
--- NOTE | 2024-12-26 16:30 | DVHPN2 ---
Subjective This is a 74-year-old female with a known history of end-stage liver disease, hepatic encephalopathy who initially presented to the hospital with altered mental status eventually found to have hematemesis in the ER intubated for airway protection. Patient is currently extubated on continuous O2 supplementation by nasal cannula, patient's mental status is continues to improve. Overnight events noted. Patient's could not swallow today, also blood sugars were running low currently on D10 drip. Patient was blood sugars are better on D10 drip, patient was possible evaluation we will start on pureed diet. Reviewed: Care Plan Changes from previous H/P or p: No Changes Objective Vitals Vital Signs Date Time Temp Pulse Resp B/P (MAP) Pulse Ox O2 Delivery O2 Flow Rate FiO2 12/26/24 14:15 89 13 96 12/26/24 14:00 Room Air* 0 21 12/26/24 08:00 98.0 98.0 Intake/Output Intake and Output 12/26/24 07:00 Intake Total 919 ml Output Total 500 ml Balance 419 ml Intake Oral 0 ml IV Total 919 ml Output Urine Total 375 ml Stool Total 125 ml Exam HEENT pupils are reactive Neck is supple CVS S1-S2 regular rate and rhythm Respiratory diminished breath sounds bases GI positive bowel sounds positive ascites Extremity trace edema [employer]ATION [employer] patient minimally following commands Medications Current Medications Medications Dose Ordered Sig/Leti Route Start Time Stop Time Status Last Admin Dose Admin Ondansetron HCl 4 mg Q4HP PRN IV 12/13/24 00:15 12/21/24 19:59 4 MG Nitroglycerin 0.4 mg Q5MINP PRN SL 12/13/24 00:15 Ceftriaxone Sodium 50 ml @ 100 mls/hr DAILY@1999 IV 12/13/24 20:00 Cancel Pantoprazole Sodium 40 mg BID IV 12/16/24 22:00 12/26/24 10:11 40 MG Flumazenil 0.2 mg ONCE STAT IV 12/17/24 20:22 12/17/24 20:23 Cancel Lactulose 30 ml BID NG 12/19/24 22:00 12/26/24 12:57 30 ML Diagnostic Test (Pha) 1 strip ACHS 12/19/24 17:00 12/26/24 12:57 1 STRIP Dextrose 50 ml UD PRN IV 12/19/24 16:45 12/25/24 06:55 50 ML Dextrose 1,000 ml @ 50 mls/hr Q20H IV 12/20/24 10:00 Cancel Enteral Nutritional Formula 1,000 ml 50ML/HR GT 12/20/24 12:30 12/22/24 09:31 1,000 ML Morphine Sulfate 2 mg Q4HPRN PRN IV 12/21/24 16:00 12/25/24 09:27 2 MG Piperacillin Sod/ Tazobactam Sod 100 ml @ 25 mls/hr Q12HR IV 12/21/24 22:00 UNV Ertapenem 0.5 gm/ Sodium Chloride 50 ml @ 100 mls/hr DAILY IV 12/22/24 10:00 12/26/24 10:15 100 MLS/HR Norepinephrine Bitartrate 250 ml @ 1.875 mls/ hr Q24H IV 12/22/24 00:00 12/22/24 17:59 1.875 MLS/HR Midodrine 10 mg TID@0600,1200,1800 PO 12/23/24 18:00 12/26/24 13:45 10 MG Octreotide Acetate 100 mcg TID SUBCUT 12/23/24 14:00 12/26/24 13:49 100 MCG Atropine Sulfate 1 mg ONCE PRN IV 12/24/24 20:45 12/24/24 23:31 1 MG Amino Acids 0 ml @ 0 mls/hr PER PHARMACY IV 12/25/24 14:30 Amino Acids/ Electrolytes/ Dextrose 1,000 ml @ 41 mls/hr DAILY@2200 IV 12/25/24 22:00 12/25/24 22:02 41 MLS/HR Laboratory Results Laboratory Tests 12/26/24 03:36 Chemistry Test 12/26/24 03:36 Albumin 2.2 g/dL (3.2-4.8) L Calcium Level 8.0 mg/dL (8.7-10.4) L Magnesium Level 1.8 mg/dL (1.6-2.6) Phosphorus Level 2.6 mg/dL (2.4-5.1) Urinalysis Test 12/13/24 06:00 Urine Color Yellow (Yellow) Urine Clarity Turbid (Clear) H Urine pH 5.5 (5.0-9.0) Urine Specific [place] 1.016 (1.001-1.035) Urine Protein Trace (Negative) H Urine Ketones Negative (Negative) Urine Blood Trace /uL (Negative) H Urine Nitrite Negative (Negative) Urine Bilirubin Negative (Negative) Urine Urobilinogen Normal mg/dL (Negative) Urine Leukocyte Esterase 3+ /uL (Negative) Urine RBC 2 /hpf (0 - 4) Urine WBC Clumps Present /hpf (None Seen) Urine Microscopic WBC 177 /HPF (0-5) H Urine Squamous Epithelial Cells Few /hpf (<5) Urine Bacteria Many /hpf (None Seen) H Urine Hyaline Casts Few /lpf (0 - 2) Urine Mucus Few (None Seen) Urine Creatinine 134.12 mg/dL (30.0-125.0) H Urine Protein/Creatinine Ratio 0.21 Urine Sodium < 10 mmol/L (40-220) L Urine Glucose Normal mg/dL (Normal) Urine Total Protein 27.9 mg/dL (1-14) H Microbiology Microbiology Date/Time Source Procedure Growth Status 12/22/24 22:40 Ascities Fluid Gram Stain - Final Resulted 12/22/24 22:40 Ascities Fluid Body Fluid Culture - Preliminary Resulted 12/16/24 18:17 Bronchial Washings Gram Stain - Final Complete 12/16/24 18:17 Respiratory Culture - Final Escherichia coli - ESBL Complete 12/13/24 12:54 Nose MRSA Screen - Final Complete 12/13/24 06:00 Urine - [place] Urine Culture - Final Escherichia coli Complete 12/12/24 20:00 Blood Blood Culture - Final NO GROWTH AFTER 5 DAYS OF INCUBATION. Complete Assessment/Plan Assessment/Plan 74-year-old female with known history of end-stage liver disease, who initially presented to the hospital with a hematemesis altered mental status found to have 1. Acute hypoxic respiratory failure status post intubation, status post extubation currently on O2 supplementation continuous nasal cannula 2. Upper GI bleed with esophageal varices and severe gastropathy status post EGD, status post biopsy of the gastric polyp and snare polypectomy 3. Hepatic encephalopathy, improved significantly 4. ESBL pneumonia 5. ESBL UTI 6. Acute kidney injury suspected secondary to vasomotor nephropathy, improving 7. Moderate ascites status post paracentesis 8. Hyperammonemia, resolved 9. Hypernatremia, improved 10. Hypoglycemia currently on D10 drip 11. Difficulty in swallowing, currently passed swallow evaluation for. Right -continue D10 drip, -continue Protonix lactulose as tolerated follow up with GI recommendation follow up Pulmonary recommendations Continue antibiotics follow up Infectious Disease recommendations. Plan discussed with: Patient, Other My Orders Orders - JUMANA MANCILLA MD Procedure Category Date Status Time * Cord Cutter CONS 12/25/24 Transmitted Consult * Swallow Request ST 12/26/24 Transmitted 13:09 Pureed DIET 12/26/24 Transmitted Dinner Date of Service: Dec 26, 2024 Billing Provider: JUMANA MANCILLA MD Common Visit Codes: NOT BILLABLE JUMANA MANCILLA MD Dec 26, 2024 16:30
--- NOTE | 2024-12-26 22:59 | DVHPN2 ---
Progress Note - Dictate Date Seen: Dec 26, 2024 Medical Necessity Reason Pt with a Central, PICC or Fol: Yes The following are medically ne: Waterman Catheter Reason for waterman catheter: Strict I&O Subjective Patient seen and examined at bedside. Breathing on room air Overnight events reviewed. vital signs Vital Sign Date Time Temp Pulse Resp B/P (MAP) Pulse Ox O2 Delivery O2 Flow Rate FiO2 12/26/24 22:00 59 12/26/24 22:00 14 100 Room Air* 0 21 12/26/24 20:00 98.0 116/77 (90) 98.0 Total Intake and Output 12/25/24 12/25/24 12/26/24 15:00 23:00 07:00 Intake Total 350 ml 241 ml 328 ml Output Total 100 ml 400 ml Balance 350 ml 141 ml -72 ml medications Current Medications Medications Dose Ordered Sig/Leti Route Start Time Stop Time Status Last Admin Dose Admin Ondansetron HCl 4 mg Q4HP PRN IV 12/13/24 00:15 12/21/24 19:59 4 MG Nitroglycerin 0.4 mg Q5MINP PRN SL 12/13/24 00:15 Ceftriaxone Sodium 50 ml @ 100 mls/hr DAILY@2000 IV 12/13/24 20:00 Cancel Pantoprazole Sodium 40 mg BID IV 12/16/24 22:00 12/26/24 21:28 40 MG Flumazenil 0.2 mg ONCE STAT IV 12/17/24 20:22 12/17/24 20:23 Cancel Lactulose 30 ml BID NG 12/19/24 22:00 12/26/24 21:29 30 ML Diagnostic Test (Pha) 1 strip ACHS 12/19/24 17:00 12/26/24 21:29 1 STRIP Dextrose 50 ml UD PRN IV 12/19/24 16:45 12/25/24 06:55 50 ML Dextrose 1,000 ml @ 50 mls/hr Q20H IV 12/20/24 10:00 Cancel Enteral Nutritional Formula 1,000 ml 50ML/HR GT 12/20/24 12:30 12/22/24 09:31 1,000 ML Morphine Sulfate 2 mg Q4HPRN PRN IV 12/21/24 16:00 12/25/24 09:27 2 MG Piperacillin Sod/ Tazobactam Sod 100 ml @ 25 mls/hr Q12HR IV 12/21/24 22:00 UNV Ertapenem 0.5 gm/ Sodium Chloride 50 ml @ 100 mls/hr DAILY IV 12/22/24 10:00 12/26/24 10:15 100 MLS/HR Norepinephrine Bitartrate 250 ml @ 1.875 mls/ hr Q24H IV 12/22/24 00:00 12/22/24 17:59 1.875 MLS/HR Midodrine 10 mg TID@0600,1200,1800 PO 12/23/24 18:00 12/26/24 18:21 10 MG Octreotide Acetate 100 mcg TID SUBCUT 12/23/24 14:00 12/26/24 21:29 100 MCG Atropine Sulfate 1 mg ONCE PRN IV 12/24/24 20:45 12/24/24 23:31 1 MG Amino Acids 0 ml @ 0 mls/hr PER PHARMACY IV 12/25/24 14:30 Amino Acids/ Electrolytes/ Dextrose 1,000 ml @ 41 mls/hr DAILY@2200 IV 12/25/24 22:00 12/26/24 21:28 41 MLS/HR objective Gen.: Patient lying in bed in no apparent distress. On room air. Head: Normocephalic, atraumatic. Eyes: EOMI/PERRLA. Ears: Normal hearing. Normal anatomy. Neck/trachea: Trachea midline, supple. Nose: Normal external anatomy. Mouth: Moist mucous membranes. Chest: Decreased air entry bilaterally. No wheezing or rhonchi. Cardiovascular: Positive S1, positive S2. Regular rate and rhythm. Abdomen: Positive bowel sounds in all 4 quadrants. Soft, non-tender, non- distended. : Deferred. Rectal: Deferred. Skin: Warm, dry. Intact. Extremities: 2+ radial pulses bilaterally. No lower extremity edema. Neuro: Awake, alert, oriented x2. No gross motor or sensory deficits. Cranial nerves II through XII intact. Gait not assessed laboratory and microbiology Laboratory Tests 12/26/24 03:36 Test 12/26/24 03:36 Range/Units Serum Glucose 180 H 74-106 mg/dL Assessment/Plan Impression: Acute hypoxic respiratory failure Hepatic encephalopathy Hyperammonemia Liver cirrhosis Large volume ascites Thrombocytopenia Anemia, chronic Acute on chronic kidney disease Lactic acidosis Metabolic acidosis Events: Remains on room air. Supplemental oxygen PRN Labs reviewed Accu-Cheks, monitor for hypoglycemia On D10W Continue Clinimix for nutritional support Head of bed elevation Aspiration precautions Supportive care Continue abx Monitor hemoglobin Protonix BID Monitor renal function - Cr 1.91 Monitor electrolytes. Supplement as necessary. Nephrology recommendations appreciated. Tube feeds for nutritional support Status post paracentesis, removed 4.5 L on 12/22/24 Labs and imaging reviewed. Rest of plan as noted below. Plan: s/p extubation on 12/17/24 Supplemental oxygen PRN Titrate to keep O2 sats above 92%. Pressors if necessary for hemodynamic support. Titrate to keep MAP above 65 mmHg/SBP above 90 mmHg. Continue antibiotics. Follow up cultures Bronchial cultures grew ESBL E.coli Monitor renal function due to acute kidney injury. Monitor electrolytes. Supplement as necessary. Monitor ins and outs Nephrology recommendations appreciated. Metabolic acidosis - received one ampule of bicarbonate on 12/13. Status post paracentesis, albumin given. Nutritional support. Accu-Cheks, ISS. GI/DVT prophylaxis. Condition: Critical Prognosis: Guarded given multiple comorbidities. Rest of plan per hospitalist and other consultants. A total of 35 minutes of critical care time was spent reviewing the patient record, examining the patient, making a diagnostic and therapeutic plan, discussing this plan with the medical personnel, following up on diagnostic studies and following the patient for clinical stability excluding any and all procedures. At least 50% of this time was spent in direct, [id number] contact. Thank you MASSIEL Arias for allowing me to participate in this patient's care. Further recommendations will depend on patient's clinical course. Please do not hesitate to contact me if you have any questions or concerns. This medical document was created using an electronic medical record system with [employer] system. Although this document has been carefully reviewed, there may still be some phonetic and typographical errors. These areas are purely typographical due to imperfections of the software programs, and do not reflect any compromise in the patient's medical care. Dietary Evaluation Review Comments: 1. Considering high propofol requirements, recommend EN initiation with trickle-tube feeds of Vital HP @ 15 ml/hr 2. Provide minimal free water flushes for tube patency of 30 ml Q6 hrs (120 ml total) or per MD discretion 3. Monitor BMP/lytes and replete to WNL/PRN Expected Outcomes/Goals: Improved nutritional status Plan discussed with: Other (GLADYS Mullins) Critical Care Time(min): 35 SCOTT NELSON MD Dec 26, 2024 22:59
[2024-12-27] VITALS (22 sets, daily range): BP systolic 88–119; BP diastolic 48–71; PULSE 50–80; RESP 10–20; TEMP 97.7–98.7; O2SAT 90–100
[2024-12-27 04:27] LABS: Alanine Aminotransferase 23 U/L (7-40); Alkaline Phosphatase 65 U/L (46-116); Anion Gap 8 (5-15); Aspartate Aminotransferase 32 U/L (13-40); BUN/Creatinine Ratio 22.5 (10.0-20.0); Bilirubin, Total 0.7 mg/dL (0.2-1.0); Glucose 75 mg/dL (74-106); Magnesium 1.7 mg/dL (1.6-2.6); Potassium 3.8 mmol/L (3.5-5.1); Sodium 139 mmol/L (136-145); Triglycerides 56 mg/dL (< 150)
[2024-12-27 04:54] LABS: Blood Urea Nitrogen 43 mg/dL (9-23); Calcium 7.6 mg/dL (8.7-10.4); Carbon Dioxide 20 mmol/L (20-31); Chloride 111 mmol/L (98-107); Phosphorus 2.3 mg/dL (2.4-5.1); Total Protein 3.9 g/dL (5.7-8.2)
[2024-12-27 04:55] LABS: Albumin 2.1 g/dL (3.2-4.8)
--- NOTE | 2024-12-27 14:30 | DVHPN2 ---
Progress Note Date Seen: Dec 27, 2024 Resident Creating Document: PATRICIA BRITTON RESIDENT Medical Necessity Reason Pt with a Central, PICC or Fol: Yes The following are medically ne: Waterman Catheter Reason for waterman catheter: Strict I&O Subjective Review of Systems patient is oriented and feeling better, passed swallow test. Tolerating Diet. Objective vital signs Vital Sign Date Time Temp Pulse Resp B/P (MAP) Pulse Ox O2 Delivery O2 Flow Rate FiO2 12/27/24 13:00 57 10 108/59 (75) 95 12/27/24 12:00 98.1 98.1 12/27/24 12:00 Room Air* 0 21 Total Intake and Output 12/26/24 12/26/24 12/27/24 15:00 23:00 07:00 Intake Total 428 ml 378 ml 429 ml Output Total 250 ml 350 ml Balance 428 ml 128 ml 79 ml medications Current Medications Medications Dose Ordered Sig/Leti Route Start Time Stop Time Status Last Admin Dose Admin Ondansetron HCl 4 mg Q4HP PRN IV 12/13/24 00:15 12/21/24 19:59 4 MG Nitroglycerin 0.4 mg Q5MINP PRN SL 12/13/24 00:15 Ceftriaxone Sodium 50 ml @ 100 mls/hr DAILY@2000 IV 12/13/24 20:00 Cancel Pantoprazole Sodium 40 mg BID IV 12/16/24 22:00 12/27/24 09:32 40 MG Flumazenil 0.2 mg ONCE STAT IV 12/17/24 20:22 12/17/24 20:23 Cancel Lactulose 30 ml BID NG 12/19/24 22:00 12/27/24 09:32 30 ML Diagnostic Test (Pha) 1 strip ACHS 12/19/24 17:00 12/27/24 11:52 1 STRIP Dextrose 50 ml UD PRN IV 12/19/24 16:45 12/25/24 06:55 50 ML Dextrose 1,000 ml @ 50 mls/hr Q20H IV 12/20/24 10:00 Cancel Enteral Nutritional Formula 1,000 ml 50ML/HR GT 12/20/24 12:30 12/22/24 09:31 1,000 ML Morphine Sulfate 2 mg Q4HPRN PRN IV 12/21/24 16:00 12/25/24 09:27 2 MG Piperacillin Sod/ Tazobactam Sod 100 ml @ 25 mls/hr Q12HR IV 12/21/24 22:00 UNV Ertapenem 0.5 gm/ Sodium Chloride 50 ml @ 100 mls/hr DAILY IV 12/22/24 10:00 12/27/24 10:55 100 MLS/HR Norepinephrine Bitartrate 250 ml @ 1.875 mls/ hr Q24H IV 12/22/24 00:00 12/22/24 17:59 1.875 MLS/HR Midodrine 10 mg TID@0600,1200,1800 PO 12/23/24 18:00 12/27/24 11:51 10 MG Octreotide Acetate 100 mcg TID SUBCUT 12/23/24 14:00 12/27/24 06:04 100 MCG Atropine Sulfate 1 mg ONCE PRN IV 12/24/24 20:45 12/24/24 23:31 1 MG Amino Acids 0 ml @ 0 mls/hr PER PHARMACY IV 12/25/24 14:30 Amino Acids/ Electrolytes/ Dextrose 1,000 ml @ 41 mls/hr DAILY@2200 IV 12/25/24 22:00 12/26/24 21:28 41 MLS/HR Examination General Appearance: extubated, more awake arousable Pulmonary/Respiratory: Chest non-tender. Clear bilateral breath sounds Cardiovascular/Chest: Regular rate and rhythm. No murmurs. No JVD. Abdominal Exam: Abdomen is soft, nontender. Positive bowel sounds. Lower extremities: 2+ lower extremity edema, chronic venous stasis.; Multiple areas of ecchymosis and petechial hemorrhages on her chest Neuro/Mental Status: Alert,. laboratory and microbiology Laboratory Tests 12/27/24 03:20 12/26/24 03:36 Test 12/27/24 03:20 Range/Units Serum Glucose 75 74-106 mg/dL Microbiology Date/Time Source Procedure Growth Status 12/22/24 22:40 Ascities Fluid Gram Stain - Final Resulted 12/22/24 22:40 Ascities Fluid Body Fluid Culture - Preliminary Resulted 12/16/24 18:17 Bronchial Washings Gram Stain - Final Complete 12/16/24 18:17 Respiratory Culture - Final Escherichia coli - ESBL Complete 12/13/24 12:54 Nose MRSA Screen - Final Complete 12/13/24 06:00 Urine - [place] Urine Culture - Final Escherichia coli Complete 12/12/24 20:00 Blood Blood Culture - Final NO GROWTH AFTER 5 DAYS OF INCUBATION. Complete Problem List/Assessment/Plan Problem List/Assessment/Plan Liver cirrhosis Trace distal esophageal varices without bleeding Active upper GI bleed due to Severe gastropathy with gastritis Antral polyps of stomach Hepatic encephalopathy Esophageal variceal Moderate ascites Hypoalbuminemia Hyperammonemia Upper GI bleed Thrombocytopenia GER hemodynamically mediated UTI Plan/recommendation. Dr Foley Passed swallow evaluation, start puree diet , advance as toleration. EGD on 12/14/2024:1. Patient had trace distal esophageal varices without stigmata of bleeding from the varices 2. Patient had a moderate amount of old blood in the stomach after this was aspirated patient was noted to have underlying [id number] gastropathy and gastritis with multiple areas of oozing from the stomach lining 3. There was a 1.5-2 cm pre-pyloric inflammatory antral polyp that was oozing, it was initially biopsied and then removed completely via hot snare polypectomy 4. There were three benign-appearing gastric polyps in the body of the that were seen and removed via hot snare polypectomy 5. Otherwise normal examination up to the 2nd and 3rd part of the duodenum -Puree diet, advance as tolerated. -continue Protonix 40 mg IV b.i.d. -1 unit of PRBC given hemoglobin less than eight, with active GI bleed. 2 PRBC has been given yesterday. -administration IV albumin given after paracentesis: Removed fluid around 6.9 L. -closely monitor fluid and electrolyte status, maintain map greater than 65. Can initiate vasopressor Levophed if needed. -we will continue to monitor and following up. Downgraded to tele today Plan discussed with: Patient, Other (RN) Dietary Evaluation Review Comments: 1. Considering high propofol requirements, recommend EN initiation with trickle-tube feeds of Vital HP @ 15 ml/hr 2. Provide minimal free water flushes for tube patency of 30 ml Q6 hrs (120 ml total) or per MD discretion 3. Monitor BMP/lytes and replete to WNL/PRN Expected Outcomes/Goals: Improved nutritional status PATRICIA BRITTON RESIDENT Dec 27, 2024 14:30
--- NOTE | 2024-12-27 15:58 | DVHPN2 ---
Subjective This is a 74-year-old female with a known history of end-stage liver disease, hepatic encephalopathy who initially presented to the hospital with altered mental status eventually found to have hematemesis in the ER intubated for airway protection. Patient is currently extubated on continuous O2 supplementation by nasal cannula, patient's mental status is continues to improve. Overnight events noted. Patient's could not swallow today, also blood sugars were running low currently on D10 drip. Patient was blood sugars are better on D10 drip, patient was possible evaluation we will start on pureed diet. Reviewed: Care Plan Changes from previous H/P or p: No Changes Objective Vitals Vital Signs Date Time Temp Pulse Resp B/P (MAP) Pulse Ox O2 Delivery O2 Flow Rate FiO2 12/27/24 13:00 57 10 108/59 (75) 95 12/27/24 12:00 98.1 98.1 12/27/24 12:00 Room Air* 0 21 Intake/Output Intake and Output 12/27/24 07:00 Intake Total 1235 ml Output Total 600 ml Balance 635 ml Intake Oral 110 ml IV Total 1125 ml Output Urine Total 300 ml Stool Total 300 ml Exam HEENT pupils are reactive Neck is supple CVS S1-S2 regular rate and rhythm Respiratory diminished breath sounds bases GI positive bowel sounds positive ascites Extremity trace edema [employer] patient minimally following commands Medications Current Medications Medications Dose Ordered Sig/Leti Route Start Time Stop Time Status Last Admin Dose Admin Ondansetron HCl 4 mg Q4HP PRN IV 12/13/24 00:15 12/21/24 19:59 4 MG Nitroglycerin 0.4 mg Q5MINP PRN SL 12/13/24 00:15 Ceftriaxone Sodium 50 ml @ 100 mls/hr DAILY@1999 IV 12/13/24 20:00 Cancel Pantoprazole Sodium 40 mg BID IV 12/16/24 22:00 12/27/24 09:32 40 MG Flumazenil 0.2 mg ONCE STAT IV 12/17/24 20:22 12/17/24 20:23 Cancel Lactulose 30 ml BID NG 12/19/24 22:00 12/27/24 09:32 30 ML Diagnostic Test (Pha) 1 strip ACHS 12/19/24 17:00 12/27/24 11:52 1 STRIP Dextrose 50 ml UD PRN IV 12/19/24 16:45 12/25/24 06:55 50 ML Dextrose 1,000 ml @ 50 mls/hr Q20H IV 12/20/24 10:00 Cancel Enteral Nutritional Formula 1,000 ml 50ML/HR GT 12/20/24 12:30 12/22/24 09:31 1,000 ML Morphine Sulfate 2 mg Q4HPRN PRN IV 12/21/24 16:00 12/25/24 09:27 2 MG Piperacillin Sod/ Tazobactam Sod 100 ml @ 25 mls/hr Q12HR IV 12/21/24 22:00 UNV Ertapenem 0.5 gm/ Sodium Chloride 50 ml @ 100 mls/hr DAILY IV 12/22/24 10:00 12/27/24 10:55 100 MLS/HR Norepinephrine Bitartrate 250 ml @ 1.875 mls/ hr Q24H IV 12/22/24 00:00 12/22/24 17:59 1.875 MLS/HR Midodrine 10 mg TID@0600,1200,1800 PO 12/23/24 18:00 12/27/24 11:51 10 MG Octreotide Acetate 100 mcg TID SUBCUT 12/23/24 14:00 12/27/24 06:04 100 MCG Atropine Sulfate 1 mg ONCE PRN IV 12/24/24 20:45 12/24/24 23:31 1 MG Amino Acids 0 ml @ 0 mls/hr PER PHARMACY IV 12/25/24 14:30 Amino Acids/ Electrolytes/ Dextrose 1,000 ml @ 41 mls/hr DAILY@2200 IV 12/25/24 22:00 12/26/24 21:28 41 MLS/HR Laboratory Results Laboratory Tests 12/26/24 03:36 12/27/24 03:20 Chemistry Test 12/27/24 03:20 Albumin 2.1 g/dL (3.2-4.8) L Calcium Level 7.6 mg/dL (8.7-10.4) L Magnesium Level 1.7 mg/dL (1.6-2.6) Phosphorus Level 2.3 mg/dL (2.4-5.1) L Total Protein 3.9 g/dL (5.7-8.2) L Lipid panel Test 12/27/24 03:20 Triglycerides Level 56 mg/dL (< 150) LFT Test 12/27/24 03:20 Alanine Aminotransferase (ALT) 23 U/L (7-40) Alkaline Phosphatase 65 U/L (46-116) Aspartate Amino Transferase (AST) 32 U/L (13-40) Total Bilirubin 0.7 mg/dL (0.2-1.0) Urinalysis Test 12/13/24 06:00 Urine Color Yellow (Yellow) Urine Clarity Turbid (Clear) H Urine pH 5.5 (5.0-9.0) Urine Specific [place] 1.016 (1.001-1.035) Urine Protein Trace (Negative) H Urine Ketones Negative (Negative) Urine Blood Trace /uL (Negative) H Urine Nitrite Negative (Negative) Urine Bilirubin Negative (Negative) Urine Urobilinogen Normal mg/dL (Negative) Urine Leukocyte Esterase 3+ /uL (Negative) Urine RBC 2 /hpf (0 - 4) Urine WBC Clumps Present /hpf (None Seen) Urine Microscopic WBC 177 /HPF (0-5) H Urine Squamous Epithelial Cells Few /hpf (<5) Urine Bacteria Many /hpf (None Seen) H Urine Hyaline Casts Few /lpf (0 - 2) Urine Mucus Few (None Seen) Urine Creatinine 134.12 mg/dL (30.0-125.0) H Urine Protein/Creatinine Ratio 0.21 Urine Sodium < 10 mmol/L (40-220) L Urine Glucose Normal mg/dL (Normal) Urine Total Protein 27.9 mg/dL (1-14) H Microbiology Microbiology Date/Time Source Procedure Growth Status 12/22/24 22:40 Ascities Fluid Gram Stain - Final Resulted 12/22/24 22:40 Ascities Fluid Body Fluid Culture - Preliminary Resulted 12/16/24 18:17 Bronchial Washings Gram Stain - Final Complete 12/16/24 18:17 Respiratory Culture - Final Escherichia coli - ESBL Complete 12/13/24 12:54 Nose MRSA Screen - Final Complete 12/13/24 06:00 Urine - [place] Urine Culture - Final Escherichia coli Complete 12/12/24 20:00 Blood Blood Culture - Final NO GROWTH AFTER 5 DAYS OF INCUBATION. Complete Assessment/Plan Assessment/Plan 74-year-old female with known history of end-stage liver disease, who initially presented to the hospital with a hematemesis altered mental status found to have 1. Acute hypoxic respiratory failure status post intubation, status post extubation currently on O2 supplementation continuous nasal cannula 2. Upper GI bleed with esophageal varices and severe gastropathy status post EGD, status post biopsy of the gastric polyp and snare polypectomy 3. Hepatic encephalopathy, improved significantly 4. ESBL pneumonia 5. ESBL UTI 6. Acute kidney injury suspected secondary to vasomotor nephropathy, improving 7. Moderate ascites status post paracentesis 8. Hyperammonemia, resolved 9. Hypernatremia, improved 10. Hypoglycemia , improved 11. Difficulty in swallowing, currently passed swallow evaluation for. Right -diet as tolerated -continue Protonix lactulose as tolerated follow up with GI recommendation follow up Pulmonary recommendations Continue antibiotics follow up Infectious Disease recommendations. Plan discussed with: Patient, Other My Orders Orders - JUMANA MANCILLA MD Procedure Category Date Status Time Transfer Orders XFER 12/26/24 Transmitted 16:29 Date of Service: Dec 27, 2024 Billing Provider: JUMANA MANCILLA MD Common Visit Codes: NOT BILLABLE JUMANA MANCILLA MD Dec 27, 2024 15:58
--- NOTE | 2024-12-27 17:25 | DVHPN2 ---
Consult Progress Note Date Seen: Dec 26, 2024 Subjective Patient reports: Other (mentation is much better and had speech evaluation and is now on a puree diet , breathing well no crackles , has a distended abdomen with a positive fluid wave ) Objective vital signs Vital Sign Date Time Temp Pulse Resp B/P (MAP) Pulse Ox O2 Delivery O2 Flow Rate FiO2 12/27/24 16:30 98.7 50 20 119/71 (87) 90 98.7 12/27/24 12:00 Room Air* 0 21 Total Intake and Output 12/26/24 12/26/24 12/27/24 15:00 23:00 07:00 Intake Total 428 ml 378 ml 429 ml Output Total 250 ml 350 ml Balance 428 ml 128 ml 79 ml medications Current Medications Medications Dose Ordered Sig/Leti Route Start Time Stop Time Status Last Admin Dose Admin Ondansetron HCl 4 mg Q4HP PRN IV 12/13/24 00:15 12/21/24 19:59 4 MG Nitroglycerin 0.4 mg Q5MINP PRN SL 12/13/24 00:15 Ceftriaxone Sodium 50 ml @ 100 mls/hr DAILY@2000 IV 12/13/24 20:00 Cancel Pantoprazole Sodium 40 mg BID IV 12/16/24 22:00 12/27/24 09:32 40 MG Flumazenil 0.2 mg ONCE STAT IV 12/17/24 20:22 12/17/24 20:23 Cancel Lactulose 30 ml BID NG 12/19/24 22:00 12/27/24 09:32 30 ML Diagnostic Test (Pha) 1 strip ACHS 12/19/24 17:00 12/27/24 11:52 1 STRIP Dextrose 50 ml UD PRN IV 12/19/24 16:45 12/25/24 06:55 50 ML Dextrose 1,000 ml @ 50 mls/hr Q20H IV 12/20/24 10:00 Cancel Enteral Nutritional Formula 1,000 ml 50ML/HR GT 12/20/24 12:30 12/22/24 09:31 1,000 ML Morphine Sulfate 2 mg Q4HPRN PRN IV 12/21/24 16:00 12/25/24 09:27 2 MG Piperacillin Sod/ Tazobactam Sod 100 ml @ 25 mls/hr Q12HR IV 12/21/24 22:00 UNV Ertapenem 0.5 gm/ Sodium Chloride 50 ml @ 100 mls/hr DAILY IV 12/22/24 10:00 12/27/24 10:55 100 MLS/HR Norepinephrine Bitartrate 250 ml @ 1.875 mls/ hr Q24H IV 12/22/24 00:00 Hold 12/22/24 17:59 1.875 MLS/HR Midodrine 10 mg TID@0600,1200,1800 PO 12/23/24 18:00 12/27/24 11:51 10 MG Octreotide Acetate 100 mcg TID SUBCUT 12/23/24 14:00 12/27/24 06:04 100 MCG Atropine Sulfate 1 mg ONCE PRN IV 12/24/24 20:45 12/24/24 23:31 1 MG Amino Acids 0 ml @ 0 mls/hr PER PHARMACY IV 12/25/24 14:30 Amino Acids/ Electrolytes/ Dextrose 1,000 ml @ 41 mls/hr DAILY@2200 IV 12/25/24 22:00 12/26/24 21:28 41 MLS/HR Physical Exam: General: Patient is obtunded, only responsive to name. Neck: Supple. No masses. HEENT: PERRL. Normal lids and conjunctiva. Moist mucous membranes. Oropharynx without lesions, exudates or excessive erythema. Normal appearance of the external aspects of the nose and ears. Heart: Regular rhythm, normal rate. No murmur. No lower extremity edema. Lungs: Normal respiratory effort. Clear to auscultation bilaterally. No wheezes. No crackles. Abdomen: Distended abdomen with positive fluid wave. Msk: Diffuse edema in lower extremities. Skin: Mild jaundice, bruising on face. Neuro: Altered mental status; only alert to name. Psych: Unable to assess due to altered mental status. Oriented to person, place, time, and situation: No. laboratory and microbiology Laboratory Tests 12/27/24 03:20 12/26/24 03:36 Test 12/27/24 03:20 Range/Units Serum Glucose 75 74-106 mg/dL Problem List/Assessment/Plan Problems(with codes): (1) Gastropathy (2) Sputum culture positive for ESBL E. coli (3) Pneumonia (4) Hypotension (5) Thrombocytopenia (6) Pancytopenia (7) Liver cirrhosis (8) Ascites Problem List/Assessment/Plan ID Problem List: - Decompensated liver cirrhosis - Hepatic encephalopathy - Esophageal varices - ESBL E. coli pneumonia - E. coli UTI - Acute hypoxic respiratory failure - Septic shock - GER vs. CKD - Thrombocytopenia - Anemia - Diabetes mellitus - Diarrhea - Altered mental status - Anasarca Assessment This is a 74 y.o. female with a past medical history of liver cirrhosis and diabetes mellitus, who presents with bloody vomiting and altered mental status. Patient was only alert to her name upon admission with an elevated ammonia level of 197. She exhibited large volume ascites, anemia (Hb 9.6), thrombocytopenia (platelets 75), and leukopenia (WBC 2.7). Imaging revealed a cirrhotic liver with large volume ascites, esophageal varices, and evidence of pneumonia. She underwent upper endoscopy revealing trace distal esophageal varices without stigmata of bleeding, moderate to severe gastropathy and gastritis with multiple areas of oozing, and removal of gastric polyps via hot snare polypectomy. BAL cultures are growing ESBL E. coli sensitive to ertapenem, gentamicin, meropenem, and Zosyn; resistant to cefepime. 12/18: sodium is 150 , BUN is 59 which is likely contributing to patients altered mental status 12/19: responding to antibiotic , diarrhea is likely related to refaxmen use and trying to improve mentation with adequate bowel movements 12/20: sodium is 153 12/21: sodium is 154 12/22: peritoneal fluid analysis shows 5pnms 29 wbcs which is not consistent with sbp 12/23: patients peritoneal fluid cultures are no growth to date , pneumonia appears resolving 12/25: patient is still struggling with intermitted waning and confusion 12/26: having some mild cytopenias , platelets are slowly improving Plan: - follow up on peritoneal cultures - continue ertapenem to reduce sodium for an additional 7 day course - Monitor renal function; defer management of GER to nephrology. - Continue aspiration precautions; keep patient upright at 30 degrees. - Follow up on blood cultures; low concern for SBP at this time. - Provide pressor support as needed to maintain MAP >65 mmHg. - Fluid restriction due to liver cirrhosis and recurrent ascites. - Defer management of hepatic encephalopathy to GI team and primary care team. - Monitor electrolyte levels; sodium is slowly rising. - Continue rifaximin for hepatic encephalopathy. - Monitor for signs of recurrent pneumonia; repeat sputum cultures and chest X- ray if needed. Authorized and Performed by: Anai Ureña Total critical care time: Approximately 76 minutes Due to a high probability of clinically significant, life threatening deterioration, the patient required my highest level of preparedness to intervene emergently and I personally spent this critical care time directly and personally managing the patient. This critical care time included obtaining a history; examining the patient; pulse oximetry; ordering and review of studies; arranging urgent treatment with development of a management plan; evaluation of patient's response to treatment; frequent reassessment; and, discussions with other providers. This critical care time was performed to assess and manage the high probability of imminent, life-threatening deterioration that could result in multi-organ failure. It was exclusive of separately billable procedures and treating other patients and teaching time. Isolation Precautions: contact ESBL Plan discussed with: Other Dietary Evaluation Review Comments: 1. Considering high propofol requirements, recommend EN initiation with trickle-tube feeds of Vital HP @ 15 ml/hr 2. Provide minimal free water flushes for tube patency of 30 ml Q6 hrs (120 ml total) or per MD discretion 3. Monitor BMP/lytes and replete to WNL/PRN Expected Outcomes/Goals: Improved nutritional status ANAI UREÑA MD Dec 27, 2024 17:25
--- NOTE | 2024-12-27 17:25 | DVHPN2 ---
Consult Progress Note Date Seen: Dec 27, 2024 Subjective Patient reports: Other (occasionally patjaden gets bradycardic but is not symptomatic from it , ireegular heart rate ,SOB due to fluid redeloping on abdomen ) Objective vital signs Vital Sign Date Time Temp Pulse Resp B/P (MAP) Pulse Ox O2 Delivery O2 Flow Rate FiO2 12/27/24 16:30 98.7 50 20 119/71 (87) 90 98.7 12/27/24 12:00 Room Air* 0 21 Total Intake and Output 12/26/24 12/26/24 12/27/24 15:00 23:00 07:00 Intake Total 428 ml 378 ml 429 ml Output Total 250 ml 350 ml Balance 428 ml 128 ml 79 ml medications Current Medications Medications Dose Ordered Sig/Leti Route Start Time Stop Time Status Last Admin Dose Admin Ondansetron HCl 4 mg Q4HP PRN IV 12/13/24 00:15 12/21/24 19:59 4 MG Nitroglycerin 0.4 mg Q5MINP PRN SL 12/13/24 00:15 Ceftriaxone Sodium 50 ml @ 100 mls/hr DAILY@2000 IV 12/13/24 20:00 Cancel Pantoprazole Sodium 40 mg BID IV 12/16/24 22:00 12/27/24 09:32 40 MG Flumazenil 0.2 mg ONCE STAT IV 12/17/24 20:22 12/17/24 20:23 Cancel Lactulose 30 ml BID NG 12/19/24 22:00 12/27/24 09:32 30 ML Diagnostic Test (Pha) 1 strip ACHS 12/19/24 17:00 12/27/24 11:52 1 STRIP Dextrose 50 ml UD PRN IV 12/19/24 16:45 12/25/24 06:55 50 ML Dextrose 1,000 ml @ 50 mls/hr Q20H IV 12/20/24 10:00 Cancel Enteral Nutritional Formula 1,000 ml 50ML/HR GT 12/20/24 12:30 12/22/24 09:31 1,000 ML Morphine Sulfate 2 mg Q4HPRN PRN IV 12/21/24 16:00 12/25/24 09:27 2 MG Piperacillin Sod/ Tazobactam Sod 100 ml @ 25 mls/hr Q12HR IV 12/21/24 22:00 UNV Ertapenem 0.5 gm/ Sodium Chloride 50 ml @ 100 mls/hr DAILY IV 12/22/24 10:00 12/27/24 10:55 100 MLS/HR Norepinephrine Bitartrate 250 ml @ 1.875 mls/ hr Q24H IV 12/22/24 00:00 Hold 12/22/24 17:59 1.875 MLS/HR Midodrine 10 mg TID@0600,1200,1800 PO 12/23/24 18:00 12/27/24 11:51 10 MG Octreotide Acetate 100 mcg TID SUBCUT 12/23/24 14:00 12/27/24 06:04 100 MCG Atropine Sulfate 1 mg ONCE PRN IV 12/24/24 20:45 12/24/24 23:31 1 MG Amino Acids 0 ml @ 0 mls/hr PER PHARMACY IV 12/25/24 14:30 Amino Acids/ Electrolytes/ Dextrose 1,000 ml @ 41 mls/hr DAILY@2200 IV 12/25/24 22:00 12/26/24 21:28 41 MLS/HR Physical Exam: General: Patient is obtunded, only responsive to name. Neck: Supple. No masses. HEENT: PERRL. Normal lids and conjunctiva. Moist mucous membranes. Oropharynx without lesions, exudates or excessive erythema. Normal appearance of the external aspects of the nose and ears. Heart: Regular rhythm, normal rate. No murmur. No lower extremity edema. Lungs: Normal respiratory effort. Clear to auscultation bilaterally. No wheezes. No crackles. Abdomen: Distended abdomen with positive fluid wave. Msk: Diffuse edema in lower extremities. Skin: Mild jaundice, bruising on face. Neuro: Altered mental status; only alert to name. Psych: Unable to assess due to altered mental status. Oriented to person, place, time, and situation: No. laboratory and microbiology Laboratory Tests 12/27/24 03:20 12/26/24 03:36 Test 12/27/24 03:20 Range/Units Serum Glucose 75 74-106 mg/dL Problem List/Assessment/Plan Problems(with codes): (1) Gastropathy (2) Sputum culture positive for ESBL E. coli (3) Pneumonia (4) Hypotension (5) Thrombocytopenia (6) Pancytopenia (7) Liver cirrhosis Problem List/Assessment/Plan ID Problem List: - Decompensated liver cirrhosis - Hepatic encephalopathy - Esophageal varices - ESBL E. coli pneumonia - E. coli UTI - Acute hypoxic respiratory failure - Septic shock - GER vs. CKD - Thrombocytopenia - Anemia - Diabetes mellitus - Diarrhea - Altered mental status - Anasarca Assessment This is a 74 y.o. female with a past medical history of liver cirrhosis and diabetes mellitus, who presents with bloody vomiting and altered mental status. Patient was only alert to her name upon admission with an elevated ammonia level of 197. She exhibited large volume ascites, anemia (Hb 9.6), thrombocytopenia (platelets 75), and leukopenia (WBC 2.7). Imaging revealed a cirrhotic liver with large volume ascites, esophageal varices, and evidence of pneumonia. She underwent upper endoscopy revealing trace distal esophageal varices without stigmata of bleeding, moderate to severe gastropathy and gastritis with multiple areas of oozing, and removal of gastric polyps via hot snare polypectomy. BAL cultures are growing ESBL E. coli sensitive to ertapenem, gentamicin, meropenem, and Zosyn; resistant to cefepime. 12/18: sodium is 150 , BUN is 59 which is likely contributing to patients altered mental status 12/19: responding to antibiotic , diarrhea is likely related to refaxmen use and trying to improve mentation with adequate bowel movements 12/20: sodium is 153 12/21: sodium is 154 12/22: peritoneal fluid analysis shows 5pnms 29 wbcs which is not consistent with sbp 12/23: patients peritoneal fluid cultures are no growth to date , pneumonia appears resolving 12/25: patient is still struggling with intermitted waning and confusion 12/26: having some mild cytopenias , platelets are slowly improving 12/27: hemoglobin is stable , prior GI bleed has been resolved at this time Plan: - follow up on peritoneal cultures - continue ertapenem til 01/01/25 - recommend midline and ertapenum use if patient is discharged prior to 01/01/25 - Monitor renal function; defer management of GER to nephrology. - Continue aspiration precautions; keep patient upright at 30 degrees. - Follow up on blood cultures; low concern for SBP at this time. - Provide pressor support as needed to maintain MAP >65 mmHg. - Fluid restriction due to liver cirrhosis and recurrent ascites. - Defer management of hepatic encephalopathy to GI team and primary care team. - Monitor electrolyte levels; sodium is slowly rising. - Continue rifaximin for hepatic encephalopathy. - Monitor for signs of recurrent pneumonia; repeat sputum cultures and chest X- ray if needed. Authorized and Performed by: Anai Ureña Total critical care time: Approximately 76 minutes Due to a high probability of clinically significant, life threatening deterioration, the patient required my highest level of preparedness to intervene emergently and I personally spent this critical care time directly and personally managing the patient. This critical care time included obtaining a history; examining the patient; pulse oximetry; ordering and review of studies; arranging urgent treatment with development of a management plan; evaluation of patient's response to treatment; frequent reassessment; and, discussions with other providers. This critical care time was performed to assess and manage the high probability of imminent, life-threatening deterioration that could result in multi-organ failure. It was exclusive of separately billable procedures and treating other patients and teaching time. Isolation Precautions: contact ESBL Plan discussed with: Other Dietary Evaluation Review Comments: 1. Considering high propofol requirements, recommend EN initiation with trickle-tube feeds of Vital HP @ 15 ml/hr 2. Provide minimal free water flushes for tube patency of 30 ml Q6 hrs (120 ml total) or per MD discretion 3. Monitor BMP/lytes and replete to WNL/PRN Expected Outcomes/Goals: Improved nutritional status ANAI UREÑA MD Dec 27, 2024 17:25
[2024-12-27] MEDS: OCTREOTIDE ACETATE 100 MCG/ML VL SUBCUT SCH (19:16)
[2024-12-27] MEDS: SODIUM PHOSPHATES 13 MEQ in SODIUM CHL 0.9% 100 ML IV ONE (20:51)
--- NOTE | 2024-12-27 22:44 | DVHPN2 ---
Progress Note - Dictate Date Seen: Dec 27, 2024 Medical Necessity Reason Pt with a Central, PICC or Fol: Yes The following are medically ne: Waterman Catheter Reason for waterman catheter: Strict I&O Subjective Patient seen and examined at bedside. Breathing on room air Overnight events reviewed. vital signs Vital Sign Date Time Temp Pulse Resp B/P (MAP) Pulse Ox O2 Delivery O2 Flow Rate FiO2 12/27/24 21:00 97.7 50 16 95/58 (70) 97 97.7 12/27/24 20:00 Room Air* 0 21 Total Intake and Output 12/26/24 12/26/24 12/27/24 15:00 23:00 07:00 Intake Total 428 ml 378 ml 429 ml Output Total 250 ml 350 ml Balance 428 ml 128 ml 79 ml medications Current Medications Medications Dose Ordered Sig/Leti Route Start Time Stop Time Status Last Admin Dose Admin Ondansetron HCl 4 mg Q4HP PRN IV 12/13/24 00:15 12/21/24 19:59 4 MG Nitroglycerin 0.4 mg Q5MINP PRN SL 12/13/24 00:15 Ceftriaxone Sodium 50 ml @ 100 mls/hr DAILY@2000 IV 12/13/24 20:00 Cancel Pantoprazole Sodium 40 mg BID IV 12/16/24 22:00 12/27/24 21:28 40 MG Flumazenil 0.2 mg ONCE STAT IV 12/17/24 20:22 12/17/24 20:23 Cancel Lactulose 30 ml BID NG 12/19/24 22:00 12/27/24 21:28 30 ML Diagnostic Test (Pha) 1 strip ACHS 12/19/24 17:00 12/27/24 21:28 1 STRIP Dextrose 50 ml UD PRN IV 12/19/24 16:45 12/25/24 06:55 50 ML Dextrose 1,000 ml @ 50 mls/hr Q20H IV 12/20/24 10:00 Cancel Enteral Nutritional Formula 1,000 ml 50ML/HR GT 12/20/24 12:30 12/22/24 09:31 1,000 ML Morphine Sulfate 2 mg Q4HPRN PRN IV 12/21/24 16:00 12/25/24 09:27 2 MG Piperacillin Sod/ Tazobactam Sod 100 ml @ 25 mls/hr Q12HR IV 12/21/24 22:00 UNV Ertapenem 0.5 gm/ Sodium Chloride 50 ml @ 100 mls/hr DAILY IV 12/22/24 10:00 12/27/24 10:55 100 MLS/HR Norepinephrine Bitartrate 250 ml @ 1.875 mls/ hr Q24H IV 12/22/24 00:00 Hold 12/22/24 17:59 1.875 MLS/HR Midodrine 10 mg TID@0600,1200,1800 PO 12/23/24 18:00 12/27/24 11:51 10 MG Atropine Sulfate 1 mg ONCE PRN IV 12/24/24 20:45 12/24/24 23:31 1 MG Amino Acids 0 ml @ 0 mls/hr PER PHARMACY IV 12/25/24 14:30 Amino Acids/ Electrolytes/ Dextrose 1,000 ml @ 41 mls/hr DAILY@2200 IV 12/25/24 22:00 12/27/24 21:28 41 MLS/HR Octreotide Acetate 100 mcg Q8H SUBCUT 12/27/24 19:00 12/27/24 19:16 100 MCG objective Gen.: Patient lying in bed in no apparent distress. On room air. Head: Normocephalic, atraumatic. Eyes: EOMI/PERRLA. Ears: Normal hearing. Normal anatomy. Neck/trachea: Trachea midline, supple. Nose: Normal external anatomy. Mouth: Moist mucous membranes. Chest: Decreased air entry bilaterally. No wheezing or rhonchi. Cardiovascular: Positive S1, positive S2. Regular rate and rhythm. Abdomen: Positive bowel sounds in all 4 quadrants. Soft, non-tender, non- distended. : Deferred. Rectal: Deferred. Skin: Warm, dry. Intact. Extremities: 2+ radial pulses bilaterally. No lower extremity edema. Neuro: Awake, alert, oriented x2. No gross motor or sensory deficits. Cranial nerves II through XII intact. Gait not assessed laboratory and microbiology Laboratory Tests 12/27/24 03:20 12/26/24 03:36 Test 12/27/24 03:20 Range/Units Serum Glucose 75 74-106 mg/dL Assessment/Plan Impression: Acute hypoxic respiratory failure Hepatic encephalopathy Hyperammonemia Liver cirrhosis Large volume ascites Thrombocytopenia Anemia, chronic Acute on chronic kidney disease Lactic acidosis Metabolic acidosis Events: Remains on room air. Supplemental oxygen PRN Labs reviewed Accu-Cheks, monitor for hypoglycemia On D10W Continue Clinimix for nutritional support Head of bed elevation Aspiration precautions Supportive care Continue antibiotics ID recs appreciated On midodrine Monitor hemodynamics Monitor hemoglobin Protonix BID Octreotide TID On lactulose - titrate to 3-4 bowel movements. Monitor renal function - Cr 1.91 Monitor electrolytes. Supplement as necessary. Potassium supplemented Nephrology recommendations appreciated. Tube feeds for nutritional support Patient is stable from the pulmonary standpoint for downgrade. Status post paracentesis, removed 4.5 L on 12/22/24 Labs and imaging reviewed. Rest of plan as noted below. Plan: s/p extubation on 12/17/24 Supplemental oxygen PRN Titrate to keep O2 sats above 92%. Pressors if necessary for hemodynamic support. Titrate to keep MAP above 65 mmHg/SBP above 90 mmHg. Continue antibiotics. Follow up cultures Bronchial cultures grew ESBL E.coli Monitor renal function due to acute kidney injury. Monitor electrolytes. Supplement as necessary. Monitor ins and outs Nephrology recommendations appreciated. Metabolic acidosis - received one ampule of bicarbonate on 12/13. Status post paracentesis, albumin given. Nutritional support. Accu-Cheks, ISS. GI/DVT prophylaxis. Prognosis: Guarded given multiple comorbidities. Rest of plan per hospitalist and other consultants. Thank you MASSIEL Arias for allowing me to participate in this patient's care. Further recommendations will depend on patient's clinical course. Please do not hesitate to contact me if you have any questions or concerns. This medical document was created using an electronic medical record system with [employer] dictation system. Although this document has been carefully reviewed, there may still be some phonetic and typographical errors. These areas are purely typographical due to imperfections of the software programs, and do not reflect any compromise in the patient's medical care. Dietary Evaluation Review Comments: 1. Considering high propofol requirements, recommend EN initiation with trickle-tube feeds of Vital HP @ 15 ml/hr 2. Provide minimal free water flushes for tube patency of 30 ml Q6 hrs (120 ml total) or per MD discretion 3. Monitor BMP/lytes and replete to WNL/PRN Expected Outcomes/Goals: Improved nutritional status Plan discussed with: Patient, Other (GLADYS Escobedo) SCOTT NELSON MD Dec 27, 2024 22:44
[2024-12-28] VITALS (9 sets, daily range): BP systolic 95–108; BP diastolic 52–62; PULSE 53–64; RESP 14–18; TEMP 96.7–97.7; O2SAT 94–99
[2024-12-28 06:37] LABS: BUN/Creatinine Ratio 28.4 (10.0-20.0)
[2024-12-28 06:38] LABS: Magnesium 1.7 mg/dL (1.6-2.6)
[2024-12-28 06:39] LABS: Phosphorus 2.5 mg/dL (2.4-5.1)
[2024-12-28 06:41] LABS: Calcium 7.8 mg/dL (8.7-10.4)
--- NOTE | 2024-12-28 12:34 | DVHPN2 ---
Progress Note Date Seen: Dec 28, 2024 Resident Creating Document: PATRICIA BRITTON RESIDENT Medical Necessity Reason Pt with a Central, PICC or Fol: Yes The following are medically ne: Waterman Catheter Reason for waterman catheter: Strict I&O Subjective Review of Systems No new complaints. Patient is tolerating diet. Objective vital signs Vital Sign Date Time Temp Pulse Resp B/P (MAP) Pulse Ox O2 Delivery O2 Flow Rate FiO2 12/28/24 12:07 97.4 59 17 102/58 (73) 94 97.4 12/27/24 20:00 Room Air* 0 21 Total Intake and Output 12/27/24 12/27/24 12/28/24 15:00 23:00 07:00 Intake Total 316.5 ml 70 ml 100 ml Output Total 450 ml 200 ml Balance 316.5 ml -380 ml -100 ml medications Current Medications Medications Dose Ordered Sig/Leti Route Start Time Stop Time Status Last Admin Dose Admin Ondansetron HCl 4 mg Q4HP PRN IV 12/13/24 00:15 12/21/24 19:59 4 MG Nitroglycerin 0.4 mg Q5MINP PRN SL 12/13/24 00:15 Ceftriaxone Sodium 50 ml @ 100 mls/hr DAILY@2000 IV 12/13/24 20:00 Cancel Pantoprazole Sodium 40 mg BID IV 12/16/24 22:00 12/28/24 10:43 40 MG Flumazenil 0.2 mg ONCE STAT IV 12/17/24 20:22 12/17/24 20:23 Cancel Lactulose 30 ml BID NG 12/19/24 22:00 12/28/24 10:44 30 ML Diagnostic Test (Pha) 1 strip ACHS 12/19/24 17:00 12/28/24 11:37 1 STRIP Dextrose 50 ml UD PRN IV 12/19/24 16:45 12/25/24 06:55 50 ML Dextrose 1,000 ml @ 50 mls/hr Q20H IV 12/20/24 10:00 Cancel Enteral Nutritional Formula 1,000 ml 50ML/HR GT 12/20/24 12:30 12/22/24 09:31 1,000 ML Morphine Sulfate 2 mg Q4HPRN PRN IV 12/21/24 16:00 12/25/24 09:27 2 MG Piperacillin Sod/ Tazobactam Sod 100 ml @ 25 mls/hr Q12HR IV 12/21/24 22:00 UNV Ertapenem 0.5 gm/ Sodium Chloride 50 ml @ 100 mls/hr DAILY IV 12/22/24 10:00 12/28/24 11:39 100 MLS/HR Midodrine 10 mg TID@0600,1200,1800 PO 12/23/24 18:00 12/28/24 05:29 10 MG Atropine Sulfate 1 mg ONCE PRN IV 12/24/24 20:45 12/24/24 23:31 1 MG Amino Acids 0 ml @ 0 mls/hr PER PHARMACY IV 12/25/24 14:30 Amino Acids/ Electrolytes/ Dextrose 1,000 ml @ 41 mls/hr DAILY@2200 IV 12/25/24 22:00 12/27/24 21:28 41 MLS/HR Octreotide Acetate 100 mcg Q8H SUBCUT 12/27/24 19:00 12/28/24 10:43 100 MCG Examination General Appearance: extubated, more awake arousable Pulmonary/Respiratory: Chest non-tender. Clear bilateral breath sounds Cardiovascular/Chest: Regular rate and rhythm. No murmurs. No JVD. Abdominal Exam: Abdomen is soft, nontender. Positive bowel sounds. Lower extremities: 2+ lower extremity edema, chronic venous stasis.; Multiple areas of ecchymosis and petechial hemorrhages on her chest Neuro/Mental Status: Alert,. laboratory and microbiology Laboratory Tests 12/28/24 05:05 12/26/24 03:36 Test 12/28/24 05:05 Range/Units Serum Glucose 89 74-106 mg/dL Microbiology Date/Time Source Procedure Growth Status 12/22/24 22:40 Ascities Fluid Gram Stain - Final Complete 12/22/24 22:40 Ascities Fluid Body Fluid Culture - Final Complete 12/16/24 18:17 Bronchial Washings Gram Stain - Final Complete 12/16/24 18:17 Respiratory Culture - Final Escherichia coli - ESBL Complete 12/13/24 12:54 Nose MRSA Screen - Final Complete 12/13/24 06:00 Urine - [place] Urine Culture - Final Escherichia coli Complete 12/12/24 20:00 Blood Blood Culture - Final NO GROWTH AFTER 5 DAYS OF INCUBATION. Complete Problem List/Assessment/Plan Problem List/Assessment/Plan Liver cirrhosis Trace distal esophageal varices without bleeding Active upper GI bleed due to Severe gastropathy with gastritis Antral polyps of stomach Hepatic encephalopathy Esophageal variceal Moderate ascites Hypoalbuminemia Hyperammonemia Upper GI bleed Thrombocytopenia GER hemodynamically mediated UTI Plan/recommendation. Dr Foley EGD on 12/14/2024:1. Patient had trace distal esophageal varices without stigmata of bleeding from the varices 2. Patient had a moderate amount of old blood in the stomach after this was aspirated patient was noted to have underlying [id number] gastropathy and gastritis with multiple areas of oozing from the stomach lining 3. There was a 1.5-2 cm pre-pyloric inflammatory antral polyp that was oozing, it was initially biopsied and then removed completely via hot snare polypectomy 4. There were three benign-appearing gastric polyps in the body of the that were seen and removed via hot snare polypectomy 5. Otherwise normal examination up to the 2nd and 3rd part of the duodenum -Puree diet, advance as tolerated. -continue Protonix 40 mg IV b.i.d. -1 unit of PRBC given hemoglobin less than eight, with active GI bleed. 2 PRBC has been given yesterday. -administration IV albumin given after paracentesis: Removed fluid around 6.9 L. -closely monitor fluid and electrolyte status, maintain map greater than 65. Can initiate vasopressor Levophed if needed. -we will continue to monitor and following up. Plan discussed with: Patient, Other (RN) Dietary Evaluation Review Comments: 1. Considering high propofol requirements, recommend EN initiation with trickle-tube feeds of Vital HP @ 15 ml/hr 2. Provide minimal free water flushes for tube patency of 30 ml Q6 hrs (120 ml total) or per MD discretion 3. Monitor BMP/lytes and replete to WNL/PRN Expected Outcomes/Goals: Improved nutritional status PATRICIA BRITTON RESIDENT Dec 28, 2024 12:34
--- NOTE | 2024-12-28 15:10 | DVHPN2 ---
Subjective This is a 74-year-old female with a known history of end-stage liver disease, hepatic encephalopathy who initially presented to the hospital with altered mental status eventually found to have hematemesis in the ER intubated for airway protection. Patient is currently extubated on continuous O2 supplementation by nasal cannula, patient's mental status is continues to improve. Overnight events noted. Patient's could not swallow today, also blood sugars were running low currently on D10 drip. Patient was blood sugars are better on D10 drip, patient was possible evaluation we will start on pureed diet. Reviewed: Care Plan Changes from previous H/P or p: No Changes Objective Vitals Vital Signs Date Time Temp Pulse Resp B/P (MAP) Pulse Ox O2 Delivery O2 Flow Rate FiO2 12/28/24 12:07 97.4 59 17 102/58 (73) 94 97.4 12/27/24 20:00 Room Air* 0 21 Intake/Output Intake and Output 12/28/24 07:00 Intake Total 486.5 ml Output Total 650 ml Balance -163.5 ml Intake Oral 170 ml IV Total 316.5 ml Output Urine Total 250 ml Stool Total 400 ml Exam HEENT pupils are reactive Neck is supple CVS S1-S2 regular rate and rhythm Respiratory diminished breath sounds bases GI positive bowel sounds positive ascites Extremity trace edema EVALUATOR patient minimally following commands Medications Current Medications Medications Dose Ordered Sig/Leti Route Start Time Stop Time Status Last Admin Dose Admin Ondansetron HCl 4 mg Q4HP PRN IV 12/13/24 00:15 12/21/24 19:59 4 MG Nitroglycerin 0.4 mg Q5MINP PRN SL 12/13/24 00:15 Ceftriaxone Sodium 50 ml @ 100 mls/hr DAILY@1999 IV 12/13/24 20:00 Cancel Pantoprazole Sodium 40 mg BID IV 12/16/24 22:00 12/28/24 10:43 40 MG Flumazenil 0.2 mg ONCE STAT IV 12/17/24 20:22 12/17/24 20:23 Cancel Lactulose 30 ml BID NG 12/19/24 22:00 12/28/24 10:44 30 ML Diagnostic Test (Pha) 1 strip ACHS 12/19/24 17:00 12/28/24 11:37 1 STRIP Dextrose 50 ml UD PRN IV 12/19/24 16:45 12/25/24 06:55 50 ML Dextrose 1,000 ml @ 50 mls/hr Q20H IV 12/20/24 10:00 Cancel Morphine Sulfate 2 mg Q4HPRN PRN IV 12/21/24 16:00 12/25/24 09:27 2 MG Piperacillin Sod/ Tazobactam Sod 100 ml @ 25 mls/hr Q12HR IV 12/21/24 22:00 UNV Ertapenem 0.5 gm/ Sodium Chloride 50 ml @ 100 mls/hr DAILY IV 12/22/24 10:00 12/28/24 11:39 100 MLS/HR Midodrine 10 mg TID@0600,1200,1800 PO 12/23/24 18:00 12/28/24 05:29 10 MG Atropine Sulfate 1 mg ONCE PRN IV 12/24/24 20:45 12/24/24 23:31 1 MG Octreotide Acetate 100 mcg Q8H SUBCUT 12/27/24 19:00 12/28/24 10:43 100 MCG Laboratory Results Laboratory Tests 12/26/24 03:36 12/28/24 05:05 Chemistry Test 12/28/24 05:05 Albumin 2.0 g/dL (3.2-4.8) L Calcium Level 7.8 mg/dL (8.7-10.4) L Magnesium Level 1.7 mg/dL (1.6-2.6) Phosphorus Level 2.5 mg/dL (2.4-5.1) Urinalysis Test 12/13/24 06:00 Urine Color Yellow (Yellow) Urine Clarity Turbid (Clear) H Urine pH 5.5 (5.0-9.0) Urine Specific [place] 1.016 (1.001-1.035) Urine Protein Trace (Negative) H Urine Ketones Negative (Negative) Urine Blood Trace /uL (Negative) H Urine Nitrite Negative (Negative) Urine Bilirubin Negative (Negative) Urine Urobilinogen Normal mg/dL (Negative) Urine Leukocyte Esterase 3+ /uL (Negative) Urine RBC 2 /hpf (0 - 4) Urine WBC Clumps Present /hpf (None Seen) Urine Microscopic WBC 177 /HPF (0-5) H Urine Squamous Epithelial Cells Few /hpf (<5) Urine Bacteria Many /hpf (None Seen) H Urine Hyaline Casts Few /lpf (0 - 2) Urine Mucus Few (None Seen) Urine Creatinine 134.12 mg/dL (30.0-125.0) H Urine Protein/Creatinine Ratio 0.21 Urine Sodium < 10 mmol/L (40-220) L Urine Glucose Normal mg/dL (Normal) Urine Total Protein 27.9 mg/dL (1-14) H Microbiology Microbiology Date/Time Source Procedure Growth Status 12/22/24 22:40 Ascities Fluid Gram Stain - Final Complete 12/22/24 22:40 Ascities Fluid Body Fluid Culture - Final Complete 12/16/24 18:17 Bronchial Washings Gram Stain - Final Complete 12/16/24 18:17 Respiratory Culture - Final Escherichia coli - ESBL Complete 12/13/24 12:54 Nose MRSA Screen - Final Complete 12/13/24 06:00 Urine - [place] Urine Culture - Final Escherichia coli Complete 12/12/24 20:00 Blood Blood Culture - Final NO GROWTH AFTER 5 DAYS OF INCUBATION. Complete Assessment/Plan Assessment/Plan 74-year-old female with known history of end-stage liver disease, who initially presented to the hospital with a hematemesis altered mental status found to have 1. Acute hypoxic respiratory failure status post intubation, status post extubation currently on O2 supplementation continuous nasal cannula 2. Upper GI bleed with esophageal varices and severe gastropathy status post EGD, status post biopsy of the gastric polyp and snare polypectomy 3. Hepatic encephalopathy, improved significantly 4. ESBL pneumonia 5. ESBL UTI 6. Acute kidney injury suspected secondary to vasomotor nephropathy, improving 7. Moderate ascites status post paracentesis 8. Hyperammonemia, resolved 9. Hypernatremia, improved 10. Hypoglycemia , improved 11. Difficulty in swallowing, currently passed swallow evaluation for. Right -diet as tolerated -continue Protonix lactulose as tolerated follow up with GI recommendation follow up Pulmonary recommendations Continue antibiotics follow up Infectious Disease recommendations. -physical therapy evaluation and treatment, discharge plan likely to senior care facility Plan discussed with: Other Date of Service: Dec 28, 2024 Billing Provider: JUMANA MANCILLA MD Common Visit Codes: NOT BILLABLE JUMANA MANCILLA MD Dec 28, 2024 15:10
--- NOTE | 2024-12-28 22:49 | DVHPN2 ---
Progress Note - Dictate Date Seen: Dec 28, 2024 Medical Necessity Reason Pt with a Central, PICC or Fol: Yes The following are medically ne: Waterman Catheter Reason for waterman catheter: Strict I&O Subjective Patient seen and examined at bedside. Breathing on room air Overnight events reviewed. vital signs Vital Sign Date Time Temp Pulse Resp B/P (MAP) Pulse Ox O2 Delivery O2 Flow Rate FiO2 12/28/24 21:00 97.7 64 18 108/62 (77) 99 97.7 12/28/24 20:00 Room Air* 0 21 Total Intake and Output 12/27/24 12/27/24 12/28/24 15:00 23:00 07:00 Intake Total 316.5 ml 70 ml 100 ml Output Total 450 ml 200 ml Balance 316.5 ml -380 ml -100 ml medications Current Medications Medications Dose Ordered Sig/Leti Route Start Time Stop Time Status Last Admin Dose Admin Ondansetron HCl 4 mg Q4HP PRN IV 12/13/24 00:15 12/21/24 19:59 4 MG Nitroglycerin 0.4 mg Q5MINP PRN SL 12/13/24 00:15 Ceftriaxone Sodium 50 ml @ 100 mls/hr DAILY@2000 IV 12/13/24 20:00 Cancel Pantoprazole Sodium 40 mg BID IV 12/16/24 22:00 12/28/24 21:31 40 MG Flumazenil 0.2 mg ONCE STAT IV 12/17/24 20:22 12/17/24 20:23 Cancel Lactulose 30 ml BID NG 12/19/24 22:00 12/28/24 21:31 30 ML Diagnostic Test (Pha) 1 strip ACHS 12/19/24 17:00 12/28/24 21:31 1 STRIP Dextrose 50 ml UD PRN IV 12/19/24 16:45 12/25/24 06:55 50 ML Dextrose 1,000 ml @ 50 mls/hr Q20H IV 12/20/24 10:00 Cancel Morphine Sulfate 2 mg Q4HPRN PRN IV 12/21/24 16:00 12/25/24 09:27 2 MG Piperacillin Sod/ Tazobactam Sod 100 ml @ 25 mls/hr Q12HR IV 12/21/24 22:00 UNV Ertapenem 0.5 gm/ Sodium Chloride 50 ml @ 100 mls/hr DAILY IV 12/22/24 10:00 12/28/24 11:39 100 MLS/HR Midodrine 10 mg TID@0600,1200,1800 PO 12/23/24 18:00 12/28/24 19:47 10 MG Atropine Sulfate 1 mg ONCE PRN IV 12/24/24 20:45 12/24/24 23:31 1 MG Octreotide Acetate 100 mcg Q8H SUBCUT 12/27/24 19:00 12/28/24 21:30 100 MCG objective Gen.: Patient lying in bed in no apparent distress. On room air. Head: Normocephalic, atraumatic. Eyes: EOMI/PERRLA. Ears: Normal hearing. Normal anatomy. Neck/trachea: Trachea midline, supple. Nose: Normal external anatomy. Mouth: Moist mucous membranes. Chest: Decreased air entry bilaterally. No wheezing or rhonchi. Cardiovascular: Positive S1, positive S2. Regular rate and rhythm. Abdomen: Positive bowel sounds in all 4 quadrants. Soft, non-tender, non- distended. : Deferred. Rectal: Deferred. Skin: Warm, dry. Intact. Extremities: 2+ radial pulses bilaterally. No lower extremity edema. Neuro: Awake, alert, oriented x2. No gross motor or sensory deficits. Cranial nerves II through XII intact. Gait not assessed laboratory and microbiology Laboratory Tests 12/28/24 05:05 12/26/24 03:36 Test 12/28/24 05:05 Range/Units Serum Glucose 89 74-106 mg/dL Assessment/Plan Impression: Acute hypoxic respiratory failure Hepatic encephalopathy Hyperammonemia Liver cirrhosis Large volume ascites Thrombocytopenia Anemia, chronic Acute on chronic kidney disease Lactic acidosis Metabolic acidosis Events: Remains on room air. Supplemental oxygen PRN Continue Clinimix for nutritional support Head of bed elevation Aspiration precautions Supportive care Continue antibiotics ID recs appreciated On midodrine Monitor hemodynamics Monitor hemoglobin -9.7 g/dl Protonix BID Octreotide TID On lactulose - titrate to 3-4 bowel movements. Monitor renal function Monitor electrolytes. Supplement as necessary. Nephrology recommendations appreciated. Tube feeds for nutritional support Status post paracentesis, removed 4.5 L on 12/22/24 Labs and imaging reviewed. Rest of plan as noted below. Plan: s/p extubation on 12/17/24 Supplemental oxygen PRN Titrate to keep O2 sats above 92%. Pressors if necessary for hemodynamic support. Titrate to keep MAP above 65 mmHg/SBP above 90 mmHg. Continue antibiotics. Follow up cultures Bronchial cultures grew ESBL E.coli Monitor renal function due to acute kidney injury. Monitor electrolytes. Supplement as necessary. Monitor ins and outs Nephrology recommendations appreciated. Metabolic acidosis - received one ampule of bicarbonate on 12/13. Status post paracentesis, albumin given. Nutritional support. Accu-Cheks, ISS. GI/DVT prophylaxis. Prognosis: Guarded given multiple comorbidities. Rest of plan per hospitalist and other consultants. Thank you MASSEIL Arias for allowing me to participate in this patient's care. Further recommendations will depend on patient's clinical course. Please do not hesitate to contact me if you have any questions or concerns. This medical document was created using an electronic medical record system with [employer] dictation system. Although this document has been carefully reviewed, there may still be some phonetic and typographical errors. These areas are purely typographical due to imperfections of the software programs, and do not reflect any compromise in the patient's medical care. Dietary Evaluation Review Comments: 1. Considering high propofol requirements, recommend EN initiation with trickle-tube feeds of Vital HP @ 15 ml/hr 2. Provide minimal free water flushes for tube patency of 30 ml Q6 hrs (120 ml total) or per MD discretion 3. Monitor BMP/lytes and replete to WNL/PRN Expected Outcomes/Goals: Improved nutritional status Plan discussed with: Patient, Other (GLADYS Bowman) SCOTT NELSON MD Dec 28, 2024 22:49
[2024-12-29] VITALS (10 sets, daily range): BP systolic 98–119; BP diastolic 56–67; PULSE 51–68; RESP 16–20; TEMP 97.3–98.9; O2SAT 90–99
[2024-12-29 05:40] LABS: Potassium 3.9 mmol/L (3.5-5.1)
[2024-12-29 05:46] LABS: BUN/Creatinine Ratio 28.4 (10.0-20.0)
[2024-12-29 05:47] LABS: Magnesium 1.8 mg/dL (1.6-2.6)
[2024-12-29 05:49] LABS: Phosphorus 2.7 mg/dL (2.4-5.1)
[2024-12-29 06:30] LABS: Albumin 2.2 g/dL (3.2-4.8); Calcium 7.7 mg/dL (8.7-10.4)
--- NOTE | 2024-12-29 10:59 | DVHPN2 ---
Progress Note Date Seen: Dec 29, 2024 Resident Creating Document: PATRICIA BRITTON RESIDENT Medical Necessity Reason Pt with a Central, PICC or Fol: Yes The following are medically ne: Waterman Catheter Reason for waterman catheter: Strict I&O Subjective Review of Systems No new complaints. Patient is tolerating diet.going through PT Objective vital signs Vital Sign Date Time Temp Pulse Resp B/P (MAP) Pulse Ox O2 Delivery O2 Flow Rate FiO2 12/29/24 08:38 98.4 60 20 104/56 (72) 99 98.4 12/28/24 20:00 Room Air* 0 21 Total Intake and Output 12/28/24 12/28/24 12/29/24 15:00 23:00 07:00 Intake Total 50 ml 450 ml 200 ml Output Total 150 ml 550 ml Balance 50 ml 300 ml -350 ml medications Current Medications Medications Dose Ordered Sig/Leti Route Start Time Stop Time Status Last Admin Dose Admin Ondansetron HCl 4 mg Q4HP PRN IV 12/13/24 00:15 12/21/24 19:59 4 MG Nitroglycerin 0.4 mg Q5MINP PRN SL 12/13/24 00:15 Ceftriaxone Sodium 50 ml @ 100 mls/hr DAILY@2000 IV 12/13/24 20:00 Cancel Flumazenil 0.2 mg ONCE STAT IV 12/17/24 20:22 12/17/24 20:23 Cancel Lactulose 30 ml BID NG 12/19/24 22:00 12/29/24 09:38 30 ML Diagnostic Test (Pha) 1 strip ACHS 12/19/24 17:00 12/29/24 05:23 1 STRIP Dextrose 50 ml UD PRN IV 12/19/24 16:45 12/25/24 06:55 50 ML Dextrose 1,000 ml @ 50 mls/hr Q20H IV 12/20/24 10:00 Cancel Morphine Sulfate 2 mg Q4HPRN PRN IV 12/21/24 16:00 12/25/24 09:27 2 MG Piperacillin Sod/ Tazobactam Sod 100 ml @ 25 mls/hr Q12HR IV 12/21/24 22:00 UNV Ertapenem 0.5 gm/ Sodium Chloride 50 ml @ 100 mls/hr DAILY IV 12/22/24 10:00 12/29/24 10:39 100 MLS/HR Midodrine 10 mg TID@0600,1200,1800 PO 12/23/24 18:00 12/29/24 05:23 10 MG Atropine Sulfate 1 mg ONCE PRN IV 12/24/24 20:45 12/24/24 23:31 1 MG Octreotide Acetate 100 mcg Q8H SUBCUT 12/27/24 19:00 12/29/24 03:16 100 MCG Pantoprazole Sodium 40 mg HS IV 12/29/24 22:00 Enteral Nutritional Formula 240 ml TIDWM PO 12/29/24 12:00 UNV Examination General Appearance: [place], pleasant person, Pulmonary/Respiratory: Chest non-tender. Clear bilateral breath sounds Cardiovascular/Chest: Regular rate and rhythm. No murmurs. No JVD. Abdominal Exam: Abdomen is soft, nontender. Positive bowel sounds. Lower extremities: 2+ lower extremity edema, chronic venous stasis Multiple areas of ecchymosis and petechial hemorrhages on her chest Neuro/Mental Status: Alert, Alert *3 laboratory and microbiology Laboratory Tests 12/29/24 05:00 12/26/24 03:36 Test 12/29/24 05:00 Range/Units Serum Glucose 82 74-106 mg/dL Microbiology Date/Time Source Procedure Growth Status 12/22/24 22:40 Ascities Fluid Gram Stain - Final Complete 12/22/24 22:40 Ascities Fluid Body Fluid Culture - Final Complete 12/16/24 18:17 Bronchial Washings Gram Stain - Final Complete 12/16/24 18:17 Respiratory Culture - Final Escherichia coli - ESBL Complete 12/13/24 12:54 Nose MRSA Screen - Final Complete 12/13/24 06:00 Urine - [place] Urine Culture - Final Escherichia coli Complete 12/12/24 20:00 Blood Blood Culture - Final NO GROWTH AFTER 5 DAYS OF INCUBATION. Complete Problem List/Assessment/Plan Problem List/Assessment/Plan Liver cirrhosis Trace distal esophageal varices without bleeding Active upper GI bleed due to Severe gastropathy with gastritis Antral polyps of stomach Hepatic encephalopathy Esophageal variceal Moderate ascites Hypoalbuminemia Hyperammonemia Upper GI bleed Thrombocytopenia GER hemodynamically mediated UTI Plan/recommendation. Dr Foley EGD on 12/14/2024:1. Patient had trace distal esophageal varices without stigmata of bleeding from the varices 2. Patient had a moderate amount of old blood in the stomach after this was aspirated patient was noted to have underlying [id number] gastropathy and gastritis with multiple areas of oozing from the stomach lining 3. There was a 1.5-2 cm pre-pyloric inflammatory antral polyp that was oozing, it was initially biopsied and then removed completely via hot snare polypectomy 4. There were three benign-appearing gastric polyps in the body of the that were seen and removed via hot snare polypectomy 5. Otherwise normal examination up to the 2nd and 3rd part of the duodenum -Puree diet, advance as tolerated. Glucerna for protein intack. -continue Protonix 40 mg IV daily -1 unit of PRBC given hemoglobin less than eight, with active GI bleed. 2 PRBC has been given yesterday. -administration IV albumin given after paracentesis: Removed fluid around 6.9 L. -closely monitor fluid and electrolyte status, maintain map greater than 65. Can initiate vasopressor Levophed if needed. -we will continue to monitor and following up. Plan discussed with: Patient, Other (RN) My Orders My Orders Orders - PATRICIA BRITTON RESIDENT Procedure Category Date Status Time Pantoprazole PHA 12/29/24 Logged (Protonix) 22:00 Nutritional PHA 12/29/24 Logged Supplements (Glucerna 12:00 Dietary Evaluation Review Comments: 1. Considering high propofol requirements, recommend EN initiation with trickle-tube feeds of Vital HP @ 15 ml/hr 2. Provide minimal free water flushes for tube patency of 30 ml Q6 hrs (120 ml total) or per MD discretion 3. Monitor BMP/lytes and replete to WNL/PRN Expected Outcomes/Goals: Improved nutritional status PATRICIA BRITTON RESIDENT Dec 29, 2024 10:58
[2024-12-29] MEDS: Glucerna Carbsteady SHAKE Vanilla 8oz PO SCH (12:30)
--- NOTE | 2024-12-29 17:00 | DVHPN2 ---
Subjective This is a 74-year-old female with a known history of end-stage liver disease, hepatic encephalopathy who initially presented to the hospital with altered mental status eventually found to have hematemesis in the ER intubated for airway protection. Patient is currently extubated on continuous O2 supplementation by nasal cannula, patient's mental status is continues to improve. Overnight events noted. Patient's could not swallow today, also blood sugars were running low currently on D10 drip. Patient was blood sugars are better on D10 drip, patient was possible evaluation we will start on pureed diet. Reviewed: Care Plan Changes from previous H/P or p: No Changes Objective Vitals Vital Signs Date Time Temp Pulse Resp B/P (MAP) Pulse Ox O2 Delivery O2 Flow Rate FiO2 12/29/24 16:54 97.3 56 20 116/67 (83) 99 97.3 12/29/24 08:30 Room Air* 0 21 Intake/Output Intake and Output 12/29/24 07:00 Intake Total 700 ml Output Total 700 ml Balance 0 ml Intake Oral 650 ml IV Total 50 ml Output Urine Total 400 ml Stool Total 300 ml Exam HEENT pupils are reactive Neck is supple CVS S1-S2 regular rate and rhythm Respiratory diminished breath sounds bases GI positive bowel sounds positive ascites Extremity trace edema [employer] patient minimally following commands Medications Current Medications Medications Dose Ordered Sig/Leti Route Start Time Stop Time Status Last Admin Dose Admin Ondansetron HCl 4 mg Q4HP PRN IV 12/13/24 00:15 12/21/24 19:59 4 MG Nitroglycerin 0.4 mg Q5MINP PRN SL 12/13/24 00:15 Ceftriaxone Sodium 50 ml @ 100 mls/hr DAILY@1999 IV 12/13/24 20:00 Cancel Flumazenil 0.2 mg ONCE STAT IV 12/17/24 20:22 12/17/24 20:23 Cancel Lactulose 30 ml BID NG 12/19/24 22:00 12/29/24 09:38 30 ML Diagnostic Test (Pha) 1 strip ACHS 12/19/24 17:00 12/29/24 12:53 1 STRIP Dextrose 50 ml UD PRN IV 12/19/24 16:45 12/25/24 06:55 50 ML Dextrose 1,000 ml @ 50 mls/hr Q20H IV 12/20/24 10:00 Cancel Morphine Sulfate 2 mg Q4HPRN PRN IV 12/21/24 16:00 12/25/24 09:27 2 MG Piperacillin Sod/ Tazobactam Sod 100 ml @ 25 mls/hr Q12HR IV 12/21/24 22:00 UNV Ertapenem 0.5 gm/ Sodium Chloride 50 ml @ 100 mls/hr DAILY IV 12/22/24 10:00 12/29/24 10:39 100 MLS/HR Midodrine 10 mg TID@0600,1200,1800 PO 12/23/24 18:00 12/29/24 13:14 10 MG Atropine Sulfate 1 mg ONCE PRN IV 12/24/24 20:45 12/24/24 23:31 1 MG Pantoprazole Sodium 40 mg HS IV 12/29/24 22:00 Enteral Nutritional Formula 240 ml TIDWM PO 12/29/24 12:00 12/29/24 12:30 240 ML Laboratory Results Laboratory Tests 12/26/24 03:36 12/29/24 05:00 Chemistry Test 12/29/24 05:00 Albumin 2.2 g/dL (3.2-4.8) L Calcium Level 7.7 mg/dL (8.7-10.4) L Magnesium Level 1.8 mg/dL (1.6-2.6) Phosphorus Level 2.7 mg/dL (2.4-5.1) Urinalysis Test 12/13/24 06:00 Urine Color Yellow (Yellow) Urine Clarity Turbid (Clear) H Urine pH 5.5 (5.0-9.0) Urine Specific Valentine 1.016 (1.001-1.035) Urine Protein Trace (Negative) H Urine Ketones Negative (Negative) Urine Blood Trace /uL (Negative) H Urine Nitrite Negative (Negative) Urine Bilirubin Negative (Negative) Urine Urobilinogen Normal mg/dL (Negative) Urine Leukocyte Esterase 3+ /uL (Negative) Urine RBC 2 /hpf (0 - 4) Urine WBC Clumps Present /hpf (None Seen) Urine Microscopic WBC 177 /HPF (0-5) H Urine Squamous Epithelial Cells Few /hpf (<5) Urine Bacteria Many /hpf (None Seen) H Urine Hyaline Casts Few /lpf (0 - 2) Urine Mucus Few (None Seen) Urine Creatinine 134.12 mg/dL (30.0-125.0) H Urine Protein/Creatinine Ratio 0.21 Urine Sodium < 10 mmol/L (40-220) L Urine Glucose Normal mg/dL (Normal) Urine Total Protein 27.9 mg/dL (1-14) H Microbiology Microbiology Date/Time Source Procedure Growth Status 12/22/24 22:40 Ascities Fluid Gram Stain - Final Complete 12/22/24 22:40 Ascities Fluid Body Fluid Culture - Final Complete 12/16/24 18:17 Bronchial Washings Gram Stain - Final Complete 12/16/24 18:17 Respiratory Culture - Final Escherichia coli - ESBL Complete 12/13/24 12:54 Nose MRSA Screen - Final Complete 12/13/24 06:00 Urine - [place] Urine Culture - Final Escherichia coli Complete 12/12/24 20:00 Blood Blood Culture - Final NO GROWTH AFTER 5 DAYS OF INCUBATION. Complete Assessment/Plan Assessment/Plan 74-year-old female with known history of end-stage liver disease, who initially presented to the hospital with a hematemesis altered mental status found to have 1. Acute hypoxic respiratory failure status post intubation, status post extubation currently on O2 supplementation continuous nasal cannula 2. Upper GI bleed with esophageal varices and severe gastropathy status post EGD, status post biopsy of the gastric polyp and snare polypectomy 3. Hepatic encephalopathy, improved significantly 4. ESBL pneumonia 5. ESBL UTI 6. Acute kidney injury suspected secondary to vasomotor nephropathy, improving 7. Moderate ascites status post paracentesis 8. Hyperammonemia, resolved 9. Hypernatremia, improved 10. Hypoglycemia , improved 11. Difficulty in swallowing, currently passed swallow evaluation for. -diet as tolerated, -continue Protonix lactulose as tolerated follow up with GI recommendation follow up Pulmonary recommendations Continue antibiotics follow up Infectious Disease recommendations. -physical therapy evaluation and treatment, discharge plan likely to long term facility Plan discussed with: Patient, Other My Orders Orders - JUMANA MANCILLA MD Procedure Category Date Status Time * Telephone Exchange Operator CONS 12/29/24 Transmitted Consult Date of Service: Dec 29, 2024 Billing Provider: JUMANA MANCILLA MD Common Visit Codes: NOT BILLABLE JUMANA MANCILLA MD Dec 29, 2024 17:00
[2024-12-29] MEDS: PANTOPRAZOLE 40 MG/10 ML VIAL INJ IV SCH (21:46)
--- NOTE | 2024-12-29 22:31 | DVHPN2 ---
Progress Note - Dictate Date Seen: Dec 29, 2024 Medical Necessity Reason Pt with a Central, PICC or Fol: Yes The following are medically ne: Waterman Catheter Reason for waterman catheter: Strict I&O Subjective Patient seen and examined at bedside. Breathing on room air Overnight events reviewed. vital signs Vital Sign Date Time Temp Pulse Resp B/P (MAP) Pulse Ox O2 Delivery O2 Flow Rate FiO2 12/29/24 21:00 98.4 68 17 119/67 (84) 90 98.4 12/29/24 08:30 Room Air* 0 21 Total Intake and Output 12/28/24 12/28/24 12/29/24 15:00 23:00 07:00 Intake Total 50 ml 450 ml 200 ml Output Total 150 ml 550 ml Balance 50 ml 300 ml -350 ml medications Current Medications Medications Dose Ordered Sig/Leti Route Start Time Stop Time Status Last Admin Dose Admin Ondansetron HCl 4 mg Q4HP PRN IV 12/13/24 00:15 12/21/24 19:59 4 MG Nitroglycerin 0.4 mg Q5MINP PRN SL 12/13/24 00:15 Ceftriaxone Sodium 50 ml @ 100 mls/hr DAILY@2000 IV 12/13/24 20:00 Cancel Flumazenil 0.2 mg ONCE STAT IV 12/17/24 20:22 12/17/24 20:23 Cancel Lactulose 30 ml BID NG 12/19/24 22:00 12/29/24 21:46 30 ML Diagnostic Test (Pha) 1 strip ACHS 12/19/24 17:00 12/29/24 21:40 1 STRIP Dextrose 50 ml UD PRN IV 12/19/24 16:45 12/25/24 06:55 50 ML Dextrose 1,000 ml @ 50 mls/hr Q20H IV 12/20/24 10:00 Cancel Morphine Sulfate 2 mg Q4HPRN PRN IV 12/21/24 16:00 12/25/24 09:27 2 MG Piperacillin Sod/ Tazobactam Sod 100 ml @ 25 mls/hr Q12HR IV 12/21/24 22:00 UNV Ertapenem 0.5 gm/ Sodium Chloride 50 ml @ 100 mls/hr DAILY IV 12/22/24 10:00 12/29/24 10:39 100 MLS/HR Midodrine 10 mg TID@0600,1200,1800 PO 12/23/24 18:00 12/29/24 18:23 10 MG Atropine Sulfate 1 mg ONCE PRN IV 12/24/24 20:45 12/24/24 23:31 1 MG Pantoprazole Sodium 40 mg HS IV 12/29/24 22:00 12/29/24 21:46 40 MG Enteral Nutritional Formula 240 ml TIDWM PO 12/29/24 12:00 12/29/24 18:24 240 ML objective Gen.: Patient lying in bed in no apparent distress. On room air. Head: Normocephalic, atraumatic. Eyes: EOMI/PERRLA. Ears: Normal hearing. Normal anatomy. Neck/trachea: Trachea midline, supple. Nose: Normal external anatomy. Mouth: Moist mucous membranes. Chest: Decreased air entry bilaterally. No wheezing or rhonchi. Cardiovascular: Positive S1, positive S2. Regular rate and rhythm. Abdomen: Positive bowel sounds in all 4 quadrants. Soft, non-tender, non- distended. : Deferred. Rectal: Deferred. Skin: Warm, dry. Intact. Extremities: 2+ radial pulses bilaterally. No lower extremity edema. Neuro: Awake, alert, oriented x2. No gross motor or sensory deficits. Cranial nerves II through XII intact. Gait not assessed laboratory and microbiology Laboratory Tests 12/29/24 05:00 12/26/24 03:36 Test 12/29/24 05:00 Range/Units Serum Glucose 82 74-106 mg/dL Assessment/Plan Impression: Acute hypoxic respiratory failure Hepatic encephalopathy Hyperammonemia Liver cirrhosis Large volume ascites Thrombocytopenia Anemia, chronic Acute on chronic kidney disease Lactic acidosis Metabolic acidosis Events: Remains on room air. Supplemental oxygen PRN Head of bed elevation Aspiration precautions Supportive care Complete antibiotics ID recs appreciated On midodrine Monitor hemodynamics Monitor hemoglobin Protonix BID On lactulose - titrate to 3-4 bowel movements. Monitor renal function - creatinine 1.69 Monitor electrolytes. Supplement as necessary. Nephrology recommendations appreciated. Accu-Cheks, monitor for hypoglycemia Tube feeds for nutritional support Glucerna supplementation Status post paracentesis, removed 4.5 L on 12/22/24 Labs and imaging reviewed. Rest of plan as noted below. Plan: s/p extubation on 12/17/24 Supplemental oxygen PRN Titrate to keep O2 sats above 92%. Pressors if necessary for hemodynamic support. Titrate to keep MAP above 65 mmHg/SBP above 90 mmHg. Continue antibiotics. Follow up cultures Bronchial cultures grew ESBL E.coli Monitor renal function due to acute kidney injury. Monitor electrolytes. Supplement as necessary. Monitor ins and outs Nephrology recommendations appreciated. Nutritional support. Accu-Cheks, ISS. GI/DVT prophylaxis. Prognosis: Guarded given multiple comorbidities. Rest of plan per hospitalist and other consultants. A total of 51 minutes of clinical care time was spent reviewing the patient record, examining the patient, making a diagnostic and therapeutic plan, discussing this plan with the medical personnel, following up on diagnostic studies and following the patient for clinical stability excluding any and all procedures. At least 50% of this time was spent in direct, [id number] contact. Thank you MASSIEL Arias for allowing me to participate in this patient's care. Further recommendations will depend on patient's clinical course. Please do not hesitate to contact me if you have any questions or concerns. This medical document was created using an electronic medical record system with [employer] dictation system. Although this document has been carefully reviewed, there may still be some phonetic and typographical errors. These areas are purely typographical due to imperfections of the software programs, and do not reflect any compromise in the patient's medical care. Dietary Evaluation Review Comments: 1. Considering high propofol requirements, recommend EN initiation with trickle-tube feeds of Vital HP @ 15 ml/hr 2. Provide minimal free water flushes for tube patency of 30 ml Q6 hrs (120 ml total) or per MD discretion 3. Monitor BMP/lytes and replete to WNL/PRN Expected Outcomes/Goals: Improved nutritional status Plan discussed with: Patient, Other (GLADYS Bowman) SCOTT NELSON MD Dec 29, 2024 22:31
[2024-12-30] VITALS (7 sets, daily range): BP systolic 103–125; BP diastolic 51–74; PULSE 46–67; RESP 15–17; TEMP 97.6–98.2; O2SAT 94–100
--- NOTE | 2024-12-30 11:21 | DVHPN2 ---
Progress Note Date Seen: Dec 30, 2024 Resident Creating Document: PATRICIA BRITTON RESIDENT Medical Necessity Reason Pt with a Central, PICC or Fol: Yes The following are medically ne: Waterman Catheter Reason for waterman catheter: Strict I&O Subjective Review of Systems Patient seen and examined at bedside. More alert Feeling better Tolerating diet No nausea, vomiting. No GI bleed Objective vital signs Vital Sign Date Time Temp Pulse Resp B/P (MAP) Pulse Ox O2 Delivery O2 Flow Rate FiO2 12/30/24 09:00 97.6 51 16 111/54 (73) 98 97.6 12/29/24 20:00 Room Air* 0 21 Total Intake and Output 12/29/24 12/29/24 12/30/24 15:00 23:00 07:00 Intake Total 50 ml 100 ml 400 ml Output Total 950 ml 200 ml Balance 50 ml -850 ml 200 ml medications Current Medications Medications Dose Ordered Sig/Leti Route Start Time Stop Time Status Last Admin Dose Admin Ondansetron HCl 4 mg Q4HP PRN IV 12/13/24 00:15 12/21/24 19:59 4 MG Nitroglycerin 0.4 mg Q5MINP PRN SL 12/13/24 00:15 Ceftriaxone Sodium 50 ml @ 100 mls/hr DAILY@2000 IV 12/13/24 20:00 Cancel Flumazenil 0.2 mg ONCE STAT IV 12/17/24 20:22 12/17/24 20:23 Cancel Lactulose 30 ml BID NG 12/19/24 22:00 12/29/24 21:46 30 ML Diagnostic Test (Pha) 1 strip ACHS 12/19/24 17:00 12/30/24 06:23 1 STRIP Dextrose 50 ml UD PRN IV 12/19/24 16:45 12/25/24 06:55 50 ML Dextrose 1,000 ml @ 50 mls/hr Q20H IV 12/20/24 10:00 Cancel Morphine Sulfate 2 mg Q4HPRN PRN IV 12/21/24 16:00 12/25/24 09:27 2 MG Piperacillin Sod/ Tazobactam Sod 100 ml @ 25 mls/hr Q12HR IV 12/21/24 22:00 UNV Ertapenem 0.5 gm/ Sodium Chloride 50 ml @ 100 mls/hr DAILY IV 12/22/24 10:00 12/29/24 10:39 100 MLS/HR Midodrine 10 mg TID@0600,1200,1800 PO 12/23/24 18:00 12/30/24 06:26 10 MG Atropine Sulfate 1 mg ONCE PRN IV 12/24/24 20:45 12/24/24 23:31 1 MG Pantoprazole Sodium 40 mg HS IV 12/29/24 22:00 12/29/24 21:46 40 MG Enteral Nutritional Formula 240 ml TIDWM PO 12/29/24 12:00 12/30/24 08:00 240 ML Examination General Appearance: [place], pleasant person, Pulmonary/Respiratory: Chest non-tender. Clear bilateral breath sounds Cardiovascular/Chest: Regular rate and rhythm. No murmurs. No JVD. Abdominal Exam: Abdomen is soft, nontender. Positive bowel sounds. Lower extremities: 2+ lower extremity edema, chronic venous stasis Multiple areas of ecchymosis and petechial hemorrhages on her chest Neuro/Mental Status: Alert, Alert *3 laboratory and microbiology Laboratory Tests 12/29/24 05:00 12/26/24 03:36 Test 12/29/24 05:00 Range/Units Serum Glucose 82 74-106 mg/dL Microbiology Date/Time Source Procedure Growth Status 12/22/24 22:40 Ascities Fluid Gram Stain - Final Complete 12/22/24 22:40 Ascities Fluid Body Fluid Culture - Final Complete 12/16/24 18:17 Bronchial Washings Gram Stain - Final Complete 12/16/24 18:17 Respiratory Culture - Final Escherichia coli - ESBL Complete 12/13/24 12:54 Nose MRSA Screen - Final Complete 12/13/24 06:00 Urine - [place] Urine Culture - Final Escherichia coli Complete 12/12/24 20:00 Blood Blood Culture - Final NO GROWTH AFTER 5 DAYS OF INCUBATION. Complete Problem List/Assessment/Plan Problem List/Assessment/Plan Liver cirrhosis Trace distal esophageal varices without bleeding Active upper GI bleed due to Severe gastropathy with gastritis Antral polyps of stomach Hepatic encephalopathy Esophageal variceal Moderate ascites Hypoalbuminemia Hyperammonemia Upper GI bleed Thrombocytopenia GER hemodynamically mediated UTI Plan/recommendation. Dr Foley EGD on 12/14/2024:1. Patient had trace distal esophageal varices without stigmata of bleeding from the varices 2. Patient had a moderate amount of old blood in the stomach after this was aspirated patient was noted to have underlying [id number] gastropathy and gastritis with multiple areas of oozing from the stomach lining 3. There was a 1.5-2 cm pre-pyloric inflammatory antral polyp that was oozing, it was initially biopsied and then removed completely via hot snare polypectomy 4. There were three benign-appearing gastric polyps in the body of the that were seen and removed via hot snare polypectomy 5. Otherwise normal examination up to the 2nd and 3rd part of the duodenum -Puree diet, advance as tolerated. Glucerna for protein intack. -continue Protonix 40 mg IV daily -1 unit of PRBC given hemoglobin less than eight, with active GI bleed. 2 PRBC has been given yesterday. -administration IV albumin given after paracentesis: Removed fluid around 6.9 L. -closely monitor fluid and electrolyte status, maintain map greater than 65. Can initiate vasopressor Levophed if needed. -we will continue to monitor and following up. Plan discussed with: Patient, Other (RN) Dietary Evaluation Review Comments: 1. Considering high propofol requirements, recommend EN initiation with trickle-tube feeds of Vital HP @ 15 ml/hr 2. Provide minimal free water flushes for tube patency of 30 ml Q6 hrs (120 ml total) or per MD discretion 3. Monitor BMP/lytes and replete to WNL/PRN Expected Outcomes/Goals: Improved nutritional status PATRICIA BRITTON RESIDENT Dec 30, 2024 11:21
[2024-12-30] MEDS: FUROSEMIDE 20 MG TAB PO ONE (11:30)
[2024-12-30] MEDS: SPIRONOLACTONE 25 MG TAB PO ONE (11:30)
--- NOTE | 2024-12-30 16:30 | DVHDS2 ---
Discharge Summary Date of Admission Dec 13, 2024 at 00:02 Date of Discharge: Dec 30, 2024 Labs/Diagnostic Data: Laboratory Results Test 12/30/24 06:01 12/29/24 05:00 12/28/24 09:57 12/27/24 03:20 POC Glucose 68 mg/dl (70-106) Sodium Level 137 mmol/L (136-145) Potassium Level 3.9 mmol/L (3.5-5.1) Chloride Level 111 mmol/L (98-107) Carbon Dioxide Level 17 mmol/L (20-31) Anion Gap 9 (5-15) Blood Urea Nitrogen 48 mg/dL (9-23) Creatinine 1.69 mg/dL (0.550-1.02) Estimated GFR () 38 mL/min Estimated GFR (Non- 32 mL/min BUN/Creatinine Ratio 28.4 (10.0-20.0) Serum Glucose 82 mg/dL (74-106) Calcium Level 7.7 mg/dL (8.7-10.4) Phosphorus Level 2.7 mg/dL (2.4-5.1) Magnesium Level 1.8 mg/dL (1.6-2.6) Albumin 2.2 g/dL (3.2-4.8) Ammonia 42 umol/L (11-32) Glomerular Filtration Rate Calc 27 mL/min (>90) Total Bilirubin 0.7 mg/dL (0.2-1.0) Aspartate Amino Transferase (AST) 32 U/L (13-40) Alanine Aminotransferase (ALT) 23 U/L (7-40) Alkaline Phosphatase 65 U/L (46-116) Total Protein 3.9 g/dL (5.7-8.2) Triglycerides Level 56 mg/dL (< 150) Test 12/26/24 03:36 12/25/24 12:30 12/25/24 08:09 12/25/24 03:26 White Blood Count 3.4 10^3/uL (4.4-10.8) Red Blood Count 3.15 10^6/uL (4.0-5.20) Hemoglobin 9.7 g/dL (12.2-16.2) Hematocrit 29.6 % (36.0-46.0) Mean Corpuscular Volume 94.1 fL (80.0-100.0) Mean Corpuscular Hemoglobin 30.9 pg (28.0-32.0) Mean Corpuscular Hemoglobin Concent 32.8 g/dL (32.0-36.0) Red Cell Distribution Width 29.6 % (11.8-14.3) Platelet Count 84 10^3/uL (140-450) Mean Platelet Volume 8.6 fL (6.9-10.8) Neutrophils (%) (Auto) 68.2 % (37.0-80.0) Lymphocytes (%) (Auto) 20.7 % (10.0-50.0) Monocytes (%) (Auto) 8.8 % (0.0-12.0) Eosinophils (%) (Auto) 0.2 % (0.0-7.0) Basophils (%) (Auto) 2.1 % (0.0-2.0) Neutrophils # (Auto) 2.3 10 ^3/uL (1.6-8.6) Lymphocytes # (Auto) 0.7 10 ^3/uL (0.4-5.4) Monocytes # (Auto) 0.3 10 ^3/uL (0-1.3) Eosinophils # (Auto) 0 10 ^3/uL (0-0.8) Basophils # (Auto) 0.1 10 ^3/uL (0-0.2) Nucleated Red Blood Cells 0.1 % Platelet Estimate Decreased Poikilocytosis (manual) Slight Anisocytosis (manual) Marked Target Cells Few Ovalocytes Few Schistocytes Few Prothrombin Time 12.5 sec (9.3-11.8) Prothrombin Time INR 1.20 (0.9-1.15) Activated Partial Thromboplast Time 41.0 SEC (24.5-34.5) Blood Gas Specimen Type Arterial Blood Gas Sample Site Right radial Blood Gas Patient Temperature 37.0 Arterial Blood Date Drawn [id number] Arterial Blood pH 7.392 (7.350-7.450) Arterial Blood Partial Pressure CO2 27.8 mmHg (32.0-45.0) Arterial Blood Partial Pressure O2 61.2 mmHg (83.0-108.0) Arterial Blood HCO3 16.5 mmol/L (21.0-28.0) Arterial Blood Oxygen Saturation 90.7 % (94.0-98.0) Arterial Blood Base Excess -7.2 mmol/L (-2.0-3.0) Arterial Blood Oxyhemoglobin 90.1 % (94.0-98.0) Arterial Blood Carboxyhemoglobin 0.6 % (0.5-1.5) Arterial Blood Methemoglobin 0.1 % (0.0-1.5) Shivam Test Yes Blood Gas Total Hemoglobin 10.20 g/dL (12.0-16.0) Blood Gas Modality Room air FiO2 % 21.0 Tear Drop Cells Few Test 12/23/24 10:15 12/22/24 22:40 12/21/24 02:52 12/18/24 11:10 Large Platelets Few Microcytosis Slight Praful Cells Few Body Fluid Source Peritoneal fluid Body Fluid WBC (Manual) 200 CUMM (0-200) Body Fluid RBC (Manual) 1121 CUMM (0-2000) Body Fluid Mononuclear Cells 80 % Body Fluid Polymorphonuclear Cells 20 % (0-25) Body Fluid Glucose 112 mg/dL (.) Body Fluid Total Protein 1.3 g/dL (.) Body Fluid Albumin 0.8 g/dL (Not Estab.) Body Fluid Lactate Dehydrogenase 78 IU/L (.) Differential Total Cells Counted 100.0 (100) Neutrophils % (Manual) 77 (37.0-80.0) Band Neutrophils % (Manual) 0 Lymphocytes % (Manual) 13 (10.0-50.0) Monocytes % (Manual) 10 (0-12) Eosinophils % (Manual) 0 (0-7) Basophils % (Manual) 0 (0.0-2.0) Metamyelocytes % (manual) 0 Myelocytes % (Manual) 0 Promyelocytes % (Manual) 0 Blast Cells % (Manual) 0 Reactive Lymphocytes 0 Hypochromasia (manual) Slight Specimen Drawn By simon rt Test 12/18/24 07:29 12/18/24 03:30 12/17/24 20:40 12/17/24 13:26 Blood Gas Set Respiration Rate 12.0 Blood Gas Spontaneous Rate 12 Blood Gas Spontaneous Tidal Volume 397 Macrocytosis Slight Blood Gas EPAP 7 Blood Gas IPAP 12 Blood Gas Inspiratory Pressure 15.0 Blood Gas Pressure Support 8 Blood Gas PEEP or CPAP 5.0 Bl Gas Inspiratory/Expiratory Ratio 1:4.1 Test 12/17/24 06:38 12/15/24 02:53 12/14/24 11:21 12/13/24 16:43 Blood Gas Tidal Volume 400.0 Ferritin 422.7 ng/mL (10-291) Anti-Nuclear Antibody Screen Negative (Negative) Blood Gas Critical Value Read Back Yes Stool Occult Blood Positive (Negative) Stool Occult Blood Sample #3 (Negative) Test 12/13/24 11:57 12/13/24 10:15 12/13/24 06:00 12/13/24 04:10 Parathyroid Hormone (Intact) 140.8 pg/mL (18.4-80.1) Body Fluid pH 8.0 Urine Color Yellow (Yellow) Urine Clarity Turbid (Clear) Urine pH 5.5 (5.0-9.0) Urine Specific Lissie 1.016 (1.001-1.035) Urine Protein Trace (Negative) Urine Ketones Negative (Negative) Urine Blood Trace /uL (Negative) Urine Nitrite Negative (Negative) Urine Bilirubin Negative (Negative) Urine Urobilinogen Normal mg/dL (Negative) Urine Leukocyte Esterase 3+ /uL (Negative) Urine RBC 2 /hpf (0 - 4) Urine WBC Clumps Present /hpf (None Seen) Urine Microscopic WBC 177 /HPF (0-5) Urine Squamous Epithelial Cells Few /hpf (<5) Urine Bacteria Many /hpf (None Seen) Urine Hyaline Casts Few /lpf (0 - 2) Urine Mucus Few (None Seen) Urine Creatinine 134.12 mg/dL (30.0-125.0) Urine Protein/Creatinine Ratio 0.21 Urine Sodium < 10 mmol/L (40-220) Urine Glucose Normal mg/dL (Normal) Urine Total Protein 27.9 mg/dL (1-14) Blood Gas Liter Flow 2.00 Test 12/13/24 04:08 12/12/24 21:50 Vitamin D 25-Hydroxy 41.3 ng/mL (30.0-100) Hepatitis B Surface Antigen Negative (Negative) Hepatitis C Antibody Negative (Negative) Lactic Acid Level 2.1 mmol/L (0.4-2.0) Other Laboratory Tests 12/29/24 05:00 12/26/24 03:36 Brief Hx & Hospital Course: 74-year-old female with known history of end-stage liver disease, who initially presented to the hospital with a hematemesis altered mental status found to have acute hypoxic respiratory failure status post intubation status post extubation currently on nasal cannula. Patient also had upper GI bleed with a esophageal varices and severe gastropathy status post EGD status post biopsy of the gastric polyp and snare polypectomy. Patient's hepatic encephalopathy has been improved. Patient was treated with the IV antibiotics for ESBL pneumonia and ESBL UTI. Patient underwent paracentesis for moderate ascites. Patient did failed swallow evaluation few times requiring IV TPN/Clinimix. Patient also has a hypoglycemia requiring D10 drip during the hospital stay. Patient has subsequently improved and [facility] Condition at Discharge: Stable Final Diagnosis/Problems List 74-year-old female with known history of end-stage liver disease, who initially presented to the hospital with a hematemesis altered mental status found to have 1. Acute hypoxic respiratory failure status post intubation, status post extubation currently on O2 supplementation continuous nasal cannula 2. Upper GI bleed with esophageal varices and severe gastropathy status post EGD, status post biopsy of the gastric polyp and snare polypectomy 3. Hepatic encephalopathy, improved significantly 4. ESBL pneumonia 5. ESBL UTI 6. Acute kidney injury suspected secondary to vasomotor nephropathy, improving 7. Moderate ascites status post paracentesis 8. Hyperammonemia, resolved 9. Hypernatremia, improved 10. Hypoglycemia , improved 11. Difficulty in swallowing, currently passed swallow evaluation for. -diet as tolerated, Discharge Disposition: [facility] Discharge Will this Physician continue t: No Discharge Instruct/Medications Diet: See Comment Diet comment: 2 gm sodium puree diet Activity: See Comment Activity comment: as tolerated Follow Up/Referral: f/u with pcp Discharge Statement: "Patient was advised to return to the ER or call 911 if any headaches, dizziness, shortness of breath, chest pain, abdominal pain, bleeding, fevers, or worsening of medical condition. Patient was counseled about treatment plan, medications, possible side effects, patientverbalized understanding. All questions were answered to the best of my ability. This discharge took greater then 30 minutes in planning, reviewing documentation, counseling the patient, and discussing with other team members." ASSESSMENT ASSESSMENT Assessment 74-year-old female with known history of end-stage liver disease, who initially presented to the hospital with a hematemesis altered mental status found to have 1. Acute hypoxic respiratory failure status post intubation, status post extubation currently on O2 supplementation continuous nasal cannula 2. Upper GI bleed with esophageal varices and severe gastropathy status post EGD, status post biopsy of the gastric polyp and snare polypectomy 3. Hepatic encephalopathy, improved significantly 4. ESBL pneumonia 5. ESBL UTI 6. Acute kidney injury suspected secondary to vasomotor nephropathy, improving 7. Moderate ascites status post paracentesis 8. Hyperammonemia, resolved 9. Hypernatremia, improved 10. Hypoglycemia , improved 11. Difficulty in swallowing, currently passed swallow evaluation for. -diet as tolerated, Date of Service: Dec 30, 2024 Billing Provider: JUMANA MANCILLA MD Common Visit Codes: NOT BILLABLE JUMANA MANCILLA MD Dec 30, 2024 16:30
--- NOTE | 2024-12-30 19:03 | DVHPN2 ---
Consult Progress Note Date Seen: Dec 28, 2024 Subjective Patient reports: Other (patient is on a puree diet but is unable to eat anything due to altered mentation , has a distended abdomen with positive fluid wave and jaundice skin ) Objective vital signs Vital Sign Date Time Temp Pulse Resp B/P (MAP) Pulse Ox O2 Delivery O2 Flow Rate FiO2 12/30/24 16:58 97.9 47 15 125/69 (87) 100 97.9 12/30/24 08:00 Room Air* 0 21 Total Intake and Output 12/29/24 12/29/24 12/30/24 15:00 23:00 07:00 Intake Total 50 ml 100 ml 400 ml Output Total 950 ml 200 ml Balance 50 ml -850 ml 200 ml medications Current Medications Medications Dose Ordered Sig/Leti Route Start Time Stop Time Status Last Admin Dose Admin Ondansetron HCl 4 mg Q4HP PRN IV 12/13/24 00:15 12/21/24 19:59 4 MG Nitroglycerin 0.4 mg Q5MINP PRN SL 12/13/24 00:15 Ceftriaxone Sodium 50 ml @ 100 mls/hr DAILY@2000 IV 12/13/24 20:00 Cancel Flumazenil 0.2 mg ONCE STAT IV 12/17/24 20:22 12/17/24 20:23 Cancel Lactulose 30 ml BID NG 12/19/24 22:00 12/30/24 10:00 30 ML Diagnostic Test (Pha) 1 strip ACHS 12/19/24 17:00 12/30/24 17:00 1 STRIP Dextrose 50 ml UD PRN IV 12/19/24 16:45 12/25/24 06:55 50 ML Dextrose 1,000 ml @ 50 mls/hr Q20H IV 12/20/24 10:00 Cancel Piperacillin Sod/ Tazobactam Sod 100 ml @ 25 mls/hr Q12HR IV 12/21/24 22:00 UNV Ertapenem 0.5 gm/ Sodium Chloride 50 ml @ 100 mls/hr DAILY IV 12/22/24 10:00 12/30/24 15:00 100 MLS/HR Midodrine 10 mg TID@0600,1200,1800 PO 12/23/24 18:00 12/30/24 12:00 10 MG Atropine Sulfate 1 mg ONCE PRN IV 12/24/24 20:45 12/24/24 23:31 1 MG Pantoprazole Sodium 40 mg HS IV 12/29/24 22:00 12/29/24 21:46 40 MG Enteral Nutritional Formula 240 ml TIDWM PO 12/29/24 12:00 12/30/24 17:50 240 ML Furosemide 20 mg DAILY PO 12/31/24 10:00 Spironolactone 25 mg DAILY PO 12/31/24 10:00 Physical Exam: General: Patient is obtunded, only responsive to name. Neck: Supple. No masses. HEENT: PERRL. Normal lids and conjunctiva. Moist mucous membranes. Oropharynx without lesions, exudates or excessive erythema. Normal appearance of the external aspects of the nose and ears. Heart: Regular rhythm, normal rate. No murmur. No lower extremity edema. Lungs: Normal respiratory effort. Clear to auscultation bilaterally. No wheezes. No crackles. Abdomen: Distended abdomen with positive fluid wave. Msk: Diffuse edema in lower extremities. Skin: Mild jaundice, bruising on face. Neuro: Altered mental status; only alert to name. Psych: Unable to assess due to altered mental status. Oriented to person, place, time, and situation: No. laboratory and microbiology Laboratory Tests 12/29/24 05:00 12/26/24 03:36 Test 12/29/24 05:00 Range/Units Serum Glucose 82 74-106 mg/dL Problem List/Assessment/Plan Problems(with codes): (1) Gastropathy (2) Sputum culture positive for ESBL E. coli (3) Pneumonia (4) Hypotension (5) Thrombocytopenia (6) Pancytopenia (7) Liver cirrhosis (8) Ascites (9) Hyperammonemia Problem List/Assessment/Plan ID Problem List: - Decompensated liver cirrhosis - Hepatic encephalopathy - Esophageal varices - ESBL E. coli pneumonia - E. coli UTI - Acute hypoxic respiratory failure - Septic shock - GER vs. CKD - Thrombocytopenia - Anemia - Diabetes mellitus - Diarrhea - Altered mental status - Anasarca Assessment This is a 74 y.o. female with a past medical history of liver cirrhosis and diabetes mellitus, who presents with bloody vomiting and altered mental status. Patient was only alert to her name upon admission with an elevated ammonia level of 197. She exhibited large volume ascites, anemia (Hb 9.6), thrombocytopenia (platelets 75), and leukopenia (WBC 2.7). Imaging revealed a cirrhotic liver with large volume ascites, esophageal varices, and evidence of pneumonia. She underwent upper endoscopy revealing trace distal esophageal varices without stigmata of bleeding, moderate to severe gastropathy and gastritis with multiple areas of oozing, and removal of gastric polyps via hot snare polypectomy. BAL cultures are growing ESBL E. coli sensitive to ertapenem, gentamicin, meropenem, and Zosyn; resistant to cefepime. 12/18: sodium is 150 , BUN is 59 which is likely contributing to patients altered mental status 12/19: responding to antibiotic , diarrhea is likely related to refaxmen use and trying to improve mentation with adequate bowel movements 12/20: sodium is 153 12/21: sodium is 154 12/22: peritoneal fluid analysis shows 5pnms 29 wbcs which is not consistent with sbp 12/23: patients peritoneal fluid cultures are no growth to date , pneumonia appears resolving 12/25: patient is still struggling with intermitted waning and confusion 12/26: having some mild cytopenias , platelets are slowly improving 12/27: hemoglobin is stable , prior GI bleed has been resolved at this time 12/28: Patient appear to be hemodynamically stable but remains altered from hepatis encephalopathy Plan: - follow up on peritoneal cultures - continue ertapenem til 01/01/25 - recommend midline and ertapenem use if patient is discharged prior to 01/01/25 - Monitor renal function; defer management of GER to nephrology. - Continue aspiration precautions; keep patient upright at 30 degrees. - Follow up on blood cultures; low concern for SBP at this time. - Provide pressor support as needed to maintain MAP >65 mmHg. - Fluid restriction due to liver cirrhosis and recurrent ascites. - Defer management of hepatic encephalopathy to GI team and primary care team. - Monitor electrolyte levels; sodium is slowly rising. - Continue rifaximin for hepatic encephalopathy. - Monitor for signs of recurrent pneumonia; repeat sputum cultures and chest X- ray if needed. Isolation Precautions: contact ESBL Plan discussed with: Other Dietary Evaluation Review Comments: 1. Considering high propofol requirements, recommend EN initiation with trickle-tube feeds of Vital HP @ 15 ml/hr 2. Provide minimal free water flushes for tube patency of 30 ml Q6 hrs (120 ml total) or per MD discretion 3. Monitor BMP/lytes and replete to WNL/PRN Expected Outcomes/Goals: Improved nutritional status ANAI LAWTON MD Dec 30, 2024 19:03
--- NOTE | 2024-12-30 19:08 | DVHPN2 ---
Consult Progress Note Date Seen: Dec 30, 2024 Subjective Patient reports: Other (tolerating dient as well as oral medications , alert and wake , having bowel movements ) Objective vital signs Vital Sign Date Time Temp Pulse Resp B/P (MAP) Pulse Ox O2 Delivery O2 Flow Rate FiO2 12/30/24 16:58 97.9 47 15 125/69 (87) 100 97.9 12/30/24 08:00 Room Air* 0 21 Total Intake and Output 12/29/24 12/29/24 12/30/24 15:00 23:00 07:00 Intake Total 50 ml 100 ml 400 ml Output Total 950 ml 200 ml Balance 50 ml -850 ml 200 ml medications Current Medications Medications Dose Ordered Sig/Leti Route Start Time Stop Time Status Last Admin Dose Admin Ondansetron HCl 4 mg Q4HP PRN IV 12/13/24 00:15 12/21/24 19:59 4 MG Nitroglycerin 0.4 mg Q5MINP PRN SL 12/13/24 00:15 Ceftriaxone Sodium 50 ml @ 100 mls/hr DAILY@2000 IV 12/13/24 20:00 Cancel Flumazenil 0.2 mg ONCE STAT IV 12/17/24 20:22 12/17/24 20:23 Cancel Lactulose 30 ml BID NG 12/19/24 22:00 12/30/24 10:00 30 ML Diagnostic Test (Pha) 1 strip ACHS 12/19/24 17:00 12/30/24 17:00 1 STRIP Dextrose 50 ml UD PRN IV 12/19/24 16:45 12/25/24 06:55 50 ML Dextrose 1,000 ml @ 50 mls/hr Q20H IV 12/20/24 10:00 Cancel Piperacillin Sod/ Tazobactam Sod 100 ml @ 25 mls/hr Q12HR IV 12/21/24 22:00 UNV Ertapenem 0.5 gm/ Sodium Chloride 50 ml @ 100 mls/hr DAILY IV 12/22/24 10:00 12/30/24 15:00 100 MLS/HR Midodrine 10 mg TID@0600,1200,1800 PO 12/23/24 18:00 12/30/24 12:00 10 MG Atropine Sulfate 1 mg ONCE PRN IV 12/24/24 20:45 12/24/24 23:31 1 MG Pantoprazole Sodium 40 mg HS IV 12/29/24 22:00 12/29/24 21:46 40 MG Enteral Nutritional Formula 240 ml TIDWM PO 12/29/24 12:00 12/30/24 17:50 240 ML Furosemide 20 mg DAILY PO 12/31/24 10:00 Spironolactone 25 mg DAILY PO 12/31/24 10:00 Physical Exam: General: Patient is obtunded, only responsive to name. Neck: Supple. No masses. HEENT: PERRL. Normal lids and conjunctiva. Moist mucous membranes. Oropharynx without lesions, exudates or excessive erythema. Normal appearance of the external aspects of the nose and ears. Heart: Regular rhythm, normal rate. No murmur. No lower extremity edema. Lungs: Normal respiratory effort. Clear to auscultation bilaterally. No wheezes. No crackles. Abdomen: Distended abdomen with positive fluid wave. Msk: Diffuse edema in lower extremities. Skin: Mild jaundice, bruising on face. Neuro: Altered mental status; only alert to name. Psych: Unable to assess due to altered mental status. Oriented to person, place, time, and situation: No. laboratory and microbiology Laboratory Tests 12/29/24 05:00 12/26/24 03:36 Test 12/29/24 05:00 Range/Units Serum Glucose 82 74-106 mg/dL Problem List/Assessment/Plan Problems(with codes): (1) Anemia (2) Hyperammonemia (3) Ascites (4) Liver cirrhosis (5) Pancytopenia (6) Thrombocytopenia (7) Hypotension (8) Pneumonia (9) Sputum culture positive for ESBL E. coli (10) Gastropathy Problem List/Assessment/Plan ID Problem List: - Decompensated liver cirrhosis - Hepatic encephalopathy - Esophageal varices - ESBL E. coli pneumonia - E. coli UTI - Acute hypoxic respiratory failure - Septic shock - GER vs. CKD - Thrombocytopenia - Anemia - Diabetes mellitus - Diarrhea - Altered mental status - Anasarca Assessment This is a 74 y.o. female with a past medical history of liver cirrhosis and diabetes mellitus, who presents with bloody vomiting and altered mental status. Patient was only alert to her name upon admission with an elevated ammonia level of 197. She exhibited large volume ascites, anemia (Hb 9.6), thrombocytopenia (platelets 75), and leukopenia (WBC 2.7). Imaging revealed a cirrhotic liver with large volume ascites, esophageal varices, and evidence of pneumonia. She underwent upper endoscopy revealing trace distal esophageal varices without stigmata of bleeding, moderate to severe gastropathy and gastritis with multiple areas of oozing, and removal of gastric polyps via hot snare polypectomy. BAL cultures are growing ESBL E. coli sensitive to ertapenem, gentamicin, meropenem, and Zosyn; resistant to cefepime. 12/18: sodium is 150 , BUN is 59 which is likely contributing to patients altered mental status 12/19: responding to antibiotic , diarrhea is likely related to refaxmen use and trying to improve mentation with adequate bowel movements 12/20: sodium is 153 12/21: sodium is 154 12/22: peritoneal fluid analysis shows 5pnms 29 wbcs which is not consistent with sbp 12/23: patients peritoneal fluid cultures are no growth to date , pneumonia appears resolving 12/25: patient is still struggling with intermitted waning and confusion 12/26: having some mild cytopenias , platelets are slowly improving 12/27: hemoglobin is stable , prior GI bleed has been resolved at this time 12/28: Patient appear to be hemodynamically stable but remains altered from hepatis encephalopathy 12/29: patient is able to tolerate puree diet and received 2 units of blood yesterday 12/30: patient appears to be breathing well and pneumonia appears to be resolved at this time Plan: - follow up on peritoneal cultures - continue ertapenem til 01/01/25 - recommend midline and ertapenem use if patient is discharged prior to 01/01/25 - Monitor renal function; defer management of GER to nephrology. - Continue aspiration precautions; keep patient upright at 30 degrees. - Follow up on blood cultures; low concern for SBP at this time. - Provide pressor support as needed to maintain MAP >65 mmHg. - Fluid restriction due to liver cirrhosis and recurrent ascites. - Defer management of hepatic encephalopathy to GI team and primary care team. - Monitor electrolyte levels; sodium is slowly rising. - Continue rifaximin for hepatic encephalopathy. - Monitor for signs of recurrent pneumonia; repeat sputum cultures and chest X- ray if needed. Isolation Precautions: contact ESBL Plan discussed with: Other Dietary Evaluation Review Comments: 1. Considering high propofol requirements, recommend EN initiation with trickle-tube feeds of Vital HP @ 15 ml/hr 2. Provide minimal free water flushes for tube patency of 30 ml Q6 hrs (120 ml total) or per MD discretion 3. Monitor BMP/lytes and replete to WNL/PRN Expected Outcomes/Goals: Improved nutritional status ANAI LAWTON MD Dec 30, 2024 19:08
--- NOTE | 2024-12-30 23:11 | DVHPN2 ---
Progress Note - Dictate Date Seen: Dec 30, 2024 Medical Necessity Reason Pt with a Central, PICC or Fol: Yes The following are medically ne: Waterman Catheter Reason for waterman catheter: Strict I&O Subjective Patient seen and examined at bedside. Breathing on room air Overnight events reviewed. vital signs Vital Sign Date Time Temp Pulse Resp B/P (MAP) Pulse Ox O2 Delivery O2 Flow Rate FiO2 12/30/24 20:00 Room Air* 0 21 12/30/24 19:21 97.9 56 17 94 12/30/24 16:58 125/69 (87) Total Intake and Output 12/29/24 12/29/24 12/30/24 15:00 23:00 07:00 Intake Total 50 ml 100 ml 400 ml Output Total 950 ml 200 ml Balance 50 ml -850 ml 200 ml medications Current Medications Medications Dose Ordered Sig/Leti Route Start Time Stop Time Status Last Admin Dose Admin Ceftriaxone Sodium 50 ml @ 100 mls/hr DAILY@2000 IV 12/13/24 20:00 Cancel Flumazenil 0.2 mg ONCE STAT IV 12/17/24 20:22 12/17/24 20:23 Cancel Dextrose 1,000 ml @ 50 mls/hr Q20H IV 12/20/24 10:00 Cancel Piperacillin Sod/ Tazobactam Sod 100 ml @ 25 mls/hr Q12HR IV 12/21/24 22:00 UNV objective Gen.: Patient lying in bed in no apparent distress. On room air. Head: Normocephalic, atraumatic. Eyes: EOMI/PERRLA. Ears: Normal hearing. Normal anatomy. Neck/trachea: Trachea midline, supple. Nose: Normal external anatomy. Mouth: Moist mucous membranes. Chest: Decreased air entry bilaterally. No wheezing or rhonchi. Cardiovascular: Positive S1, positive S2. Regular rate and rhythm. Abdomen: Positive bowel sounds in all 4 quadrants. Soft, non-tender, non- distended. : Deferred. Rectal: Deferred. Skin: Warm, dry. Intact. Extremities: 2+ radial pulses bilaterally. No lower extremity edema. Neuro: Awake, alert, oriented x2. No gross motor or sensory deficits. Cranial nerves II through XII intact. Gait not assessed laboratory and microbiology Laboratory Tests 12/29/24 05:00 12/26/24 03:36 Test 12/29/24 05:00 Range/Units Serum Glucose 82 74-106 mg/dL Assessment/Plan Impression: Acute hypoxic respiratory failure Hepatic encephalopathy Hyperammonemia Liver cirrhosis Large volume ascites Thrombocytopenia Anemia, chronic Acute on chronic kidney disease Lactic acidosis Metabolic acidosis Events: Remains on room air. Supplemental oxygen PRN Head of bed elevation Aspiration precautions Supportive care Complete antibiotics ID recs appreciated S/p rectal tube removal On midodrine Monitor hemodynamics Monitor hemoglobin Protonix BID On lactulose - titrate to 3-4 bowel movements. Monitor renal function Monitor electrolytes. Supplement as necessary. Nephrology recommendations appreciated. Accu-Cheks, monitor for hypoglycemia Tube feeds for nutritional support Glucerna supplementation Awaiting SNF placement Status post paracentesis, removed 4.5 L on 12/22/24 Labs and imaging reviewed. Rest of plan as noted below. Plan: s/p extubation on 12/17/24 Supplemental oxygen PRN Titrate to keep O2 sats above 92%. Pressors if necessary for hemodynamic support. Titrate to keep MAP above 65 mmHg/SBP above 90 mmHg. Continue antibiotics. Follow up cultures Bronchial cultures grew ESBL E.coli Monitor renal function due to acute kidney injury. Monitor electrolytes. Supplement as necessary. Monitor ins and outs Nephrology recommendations appreciated. Nutritional support. Accu-Cheks, ISS. GI/DVT prophylaxis. Prognosis: Guarded given multiple comorbidities. Rest of plan per hospitalist and other consultants. A total of 51 minutes of clinical care time was spent reviewing the patient record, examining the patient, making a diagnostic and therapeutic plan, discussing this plan with the medical personnel, following up on diagnostic studies and following the patient for clinical stability excluding any and all procedures. At least 50% of this time was spent in direct, [id number] contact. Thank you MASSIEL Arias for allowing me to participate in this patient's care. Further recommendations will depend on patient's clinical course. Please do not hesitate to contact me if you have any questions or concerns. This medical document was created using an electronic medical record system with [employer] system. Although this document has been carefully reviewed, there may still be some phonetic and typographical errors. These areas are purely typographical due to imperfections of the software programs, and do not reflect any compromise in the patient's medical care. Dietary Evaluation Review Comments: 1. Considering high propofol requirements, recommend EN initiation with trickle-tube feeds of Vital HP @ 15 ml/hr 2. Provide minimal free water flushes for tube patency of 30 ml Q6 hrs (120 ml total) or per MD discretion 3. Monitor BMP/lytes and replete to WNL/PRN Expected Outcomes/Goals: Improved nutritional status Plan discussed with: Patient, Other (RN Cyndie) SCOTT NELSON MD Dec 30, 2024 23:11
[2024-12-31] MEDS ORDERED: FUROSEMIDE 20 MG TAB PO SCH (10:00)
[2024-12-31] MEDS ORDERED: SPIRONOLACTONE 25 MG TAB PO SCH (10:00)
== END 2024-12-30 20:22 | DRG 870 ==
LOC: EDBD 18:43 → ER 18:43 → TELE 12-13 00:02 → ICU WEST 12-13 12:45 → TELE-EAST 12-27 13:20
PROVIDERS: ADMIT Internal Medicine; ATTEND Internal Medicine
PROC: 06HY33Z Insertion of Infusion Device into Lower Vein, Percutaneous Approach (ICD-10-PCS; principal; 2024-12-13)
PROC: 5A1955Z Respiratory Ventilation, Greater than 96 Consecutive Hours (ICD-10-PCS; 2024-12-13)
PROC: 0BH17EZ Insertion of Endotracheal Airway into Trachea, Via Natural or Artificial Opening (ICD-10-PCS; 2024-12-13)
PROC: 0W9G3ZZ Drainage of Peritoneal Cavity, Percutaneous Approach (ICD-10-PCS; 2024-12-13)
PROC: 30233N1 Transfusion of Nonautologous Red Blood Cells into Peripheral Vein, Percutaneous Approach (ICD-10-PCS; 2024-12-13)
PROC: 30233K1 Transfusion of Nonautologous Frozen Plasma into Peripheral Vein, Percutaneous Approach (ICD-10-PCS; 2024-12-14)
PROC: 0DB98ZX Excision of Duodenum, Via Natural or Artificial Opening Endoscopic, Diagnostic (ICD-10-PCS; 2024-12-14)
PROC: 0DB68ZX Excision of Stomach, Via Natural or Artificial Opening Endoscopic, Diagnostic (ICD-10-PCS; 2024-12-14)
PROC: 0DB68ZZ Excision of Stomach, Via Natural or Artificial Opening Endoscopic (ICD-10-PCS; 2024-12-14)
PROC: 0DB78ZZ Excision of Stomach, Pylorus, Via Natural or Artificial Opening Endoscopic (ICD-10-PCS; 2024-12-14)
PROC: 0B9D8ZX Drainage of Right Middle Lung Lobe, Via Natural or Artificial Opening Endoscopic, Diagnostic (ICD-10-PCS; 2024-12-16)
PROC: 5A09357 Assistance with Respiratory Ventilation, Less than 24 Consecutive Hours, Continuous Positive Airway Pressure (ICD-10-PCS; 2024-12-17)
PROC: 0BJ08ZZ Inspection of Tracheobronchial Tree, Via Natural or Artificial Opening Endoscopic (ICD-10-PCS; 2024-12-17)
PROC: 5A09357 Assistance with Respiratory Ventilation, Less than 24 Consecutive Hours, Continuous Positive Airway Pressure (ICD-10-PCS; 2024-12-18)
PROC: 0W9G3ZZ Drainage of Peritoneal Cavity, Percutaneous Approach (ICD-10-PCS; 2024-12-22)
DX: A41.89 Other specified sepsis (principal); J96.01 Acute respiratory failure with hypoxia; R65.21 Severe sepsis with septic shock; J15.5 Pneumonia due to Escherichia coli; K76.7 Hepatorenal syndrome; I85.11 Secondary esophageal varices with bleeding; N17.0 Acute kidney failure with tubular necrosis; D61.818 Other pancytopenia; N39.0 Urinary tract infection, site not specified; R18.8 Other ascites; E87.4 Mixed disorder of acid-base balance; I13.0 Hypertensive heart and chronic kidney disease with heart failure and stage 1 through stage 4 chronic kidney disease, or unspecified chronic kidney disease; Z16.12 Extended spectrum beta lactamase (ESBL) resistance; E87.0 Hyperosmolality and hypernatremia; E87.1 Hypo-osmolality and hyponatremia; K76.82 Hepatic encephalopathy; E11.22 Type 2 diabetes mellitus with diabetic chronic kidney disease; N18.9 Chronic kidney disease, unspecified; E88.09 Other disorders of plasma-protein metabolism, not elsewhere classified; B96.20 Unspecified Escherichia coli [E. coli] as the cause of diseases classified elsewhere; I50.9 Heart failure, unspecified; J33.8 Other polyp of sinus; K29.70 Gastritis, unspecified, without bleeding; K31.7 Polyp of stomach and duodenum; K72.10 Chronic hepatic failure without coma; K44.9 Diaphragmatic hernia without obstruction or gangrene; E11.649 Type 2 diabetes mellitus with hypoglycemia without coma; R13.10 Dysphagia, unspecified; K74.60 Unspecified cirrhosis of liver; E87.6 Hypokalemia; Z82.0 Family history of epilepsy and other diseases of the nervous system; Z82.3 Family history of stroke; Z79.899 Other long term (current) drug therapy; Z99.81 Dependence on supplemental oxygen
CPT/HCPCS: 31500; 36415; 36430; 36556; 36600; 49083; 70450; 71045; 71250; 74176; 76700; 76775; 76942; 80048; 80053; 80069; 81001; 82140; 82270; 82306; 82570; 82728; 82805; 82962; 83605; 83735; 83970; 83986; 84100; 84132; 84156; 84300; 84478; 85007; 85014; 85018; 85025; 85027; 85610; 85730; 86038; 86803; 86850; 86900; 86901; 86920; 87040; 87070; 87077; 87081; 87086; 87088; 87186; 87205; 87340; 89051; 92507; 92610; 93005; 94002; 94003; 94640; 94660; 96365; 96375; 97110; 97116; 97163; 97530; 99291; G0378; J0171; J1335; J2003; J2185; J2405; J2470; J2704; J3430; J3480; J3490; J7060; P9047

== ENCOUNTER 2025-01-19 13:14 | Inpatient (IN) | payer OTHER, MEDICAID ==
[~2025-01-19] VITALS: Ht 160 cm; Wt 62.2 kg
[~2025-01-19 13:14] MED LIST: BUME2TAB5 PO; FERR325T20 PO; LACT10SO3 PO; MIDO10TA3 PO; OMEP20TA PO; RIFA550T PO; SPIR50TA5 PO; SUCR1TAB31 OR
--- NOTE | 2025-01-19 14:27 | ED.PDOC ---
GI ASSESSMENT HPI Comments 74y F who presents to the ED via EMS for chief complaint of abdominal pain. Pt had the following course of events: -Per EMS, pt is resident at [facility] and EMS was called after pt been having abdominal pain for the past 2 days with associated nausea and vomiting. - EMS states pt was otherwise stable with vitals in normal range and given pt 4 mg zofran and brought to the ED otherwise stable with no noted vomiting episode today - Pt in the ED, states she is having abdominal fullness with noted abdominal distention but otherwise denies nausea, vomiting, diarrhea, shortness of breath or any associated abdominal pain - pt has noted history of liver cirrhosis and states she last had paracentesis 1 month prior at - PMH: cirrhosis, hepatic encephalopathy, ascites, UTI, PSH: appendectomy allergies: levofloxacin social history: denies tobacco use, denies ETOH use, denies drug use [place]: HPI: Poor Historian. REVIEW OF SYSTEMS: CONSTITUTIONAL: Denies acute: fever, diaphoresis, chills, HEAD: Denies acute: headache, photophobia Eyes: Denies acute: Double vision, vision loss, eye pain, eye discharge. EARS: Denies acute: tinnitus, hearing loss, ear discharge, ear pain, THROAT: Denies acute: sore throat, swelling, difficulty swallowing , pain with swallowing, change in voice. NECK: Denies acute: neck pain, neck swelling, stiff neck. HEART: Denies acute : chest pain, palpitations, LUNGS: Denies acute: SOB, wheezing, cough, hemoptysis ABDOMEN: Denies acute: abdominal pain, Nausea, Vomiting, diarrhea, melena , hematemesis, hematochezia SKIN: Denies acute: rash, redness, lesions, itchiness. EXTREMITIES: Denies acute: calf pain, numbness, tingling, weakness, denies pain in extremity. Denies acute: Low back pain. Neuro: Denies acute: focal neurological deficit, motor or sensory focal neurological deficit, tremors, seizure like activity, confusion, dizziness, change in mental status, loss of bowel or bladder function, cauda equina like symptoms. : Denies acute: dysuria, hematuria, flank pain, increase in urinary frequency. PSYCH: Denies acute: hallucination, suicidal ideation, homicidal ideation. FEMALE: Denies acute: abnormal vaginal bleeding, foul odor, unusual discharge. PHYSICAL EXAM: General: no acute distress, awake and alert. Head: normocephalic, atraumatic. Neck: supple, trachea is midline, no swelling. Throat: Normal phonation. Eyes:, no erythema, no purulent discharge, no proptosis, no icterus. Heart: regular rate, regular rhythm, no significant murmur appreciated. Lungs: no apparent respiratory distress, Able to speak in full sentences. No wheezing, no rhonchi, no crackles. No stridors Clear to auscultation bilaterally. Abdomen: non tender to palpation, noted distention,, soft, no guarding, no rebound, + bowel sounds. Neuro: Awake, Alert, oriented to name, self, situation, follows commands GCS=15. Speech is normal. Skin: no petechia, no purpura, no cyanosis, non-pale, not jaundice. Lower extremities: --trace bilateral- Pitting edema no deformity, no focal swelling, no calf TTP. Makes eye contact. moves all four extremities. Face: no apparent facial droop. ED COURSE: Chief Complaint: Abdominal Pain Time Seen by MD: 14:15 Primary Care Provider: ASHLEY Reviewed Notes: Code Clerk Notes, Medications Allergies: Coded Allergies: NO KNOWN ALLERGIES (Unverified , 10/14/24) Home Meds Reported Medications Spironolactone (Spironolactone) 50 Mg Tab, 1 TAB PO BID, #30 TAB 5 Refills 12/13/24 Ferrous Sulfate (Ferosul) 325 Mg Tab, 325 MG PO DAILY, TAB 12/13/24 Bumetanide (Bumetanide) 2 Mg Tab, 2 MG PO BID for 30 Days, MG 12/13/24 Omeprazole (Gnp Omeprazole) 20 Mg Tab, 1 TAB PO DAILY, #90 TAB 1 Refill 12/13/24 Lactulose (Lactulose) 10 Gm/15 Ml Risa, 10 GM PO DAILY, ML 12/13/24 Sucralfate (CARAFATE) 1 Gm Tab, 1 GM OR ACHS, TAB 12/13/24 Rifaximin (Xifaxan) 550 Mg Tab, 1 TAB PO BID, #28 TAB 12/13/24 Midodrine Hcl (Midodrine Hcl) 10 Mg Tab, 10 MG PO BID, TAB 12/13/24 Information Source: Patient, Emergency Med Personnel Mode of Arrival: EMS Past Medical History PAST MEDICAL HISTORY: HTN, Liver 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 Was a procedure done?: No GI differential Dx Differential Diagnosis: Other (Ascites, SBP, volume overload, renal failure, liver failure, electrolyte abnormality) X-Ray, Labs, Meds, VS Vital Signs Date Time Temp Pulse Resp B/P (MAP) Pulse Ox O2 Delivery O2 Flow Rate FiO2 01/19/25 16:00 55 10 120/64 (82) 100 01/19/25 14:39 110/71 01/19/25 14:08 Room Air* 0 21 01/19/25 14:04 97.5 95 20 103/70 (81) 100 97.5 01/19/25 13:50 69 Lab Test 01/19/25 16:06 01/19/25 15:39 01/19/25 14:32 Range/Units Urine Color Light-yellow Yellow Urine Clarity Turbid H Clear Urine pH 5.0 5.0-9.0 Urine Specific Stem 1.007 1.001-1.035 Urine Protein Negative Negative Urine Ketones Negative Negative Urine Blood Trace H Negative /uL Urine Nitrite Negative Negative Urine Bilirubin Negative Negative Urine Urobilinogen Normal Negative mg/dL Urine Leukocyte Esterase 3+ Negative /uL Urine RBC <1 0 - 4 /hpf Urine Microscopic WBC 110 H 0-5 /HPF Urine Squamous Epithelial Cells None seen <5 /hpf Urine Bacteria Few H None Seen /hpf Urine Hyaline Casts Few 0 - 2 /lpf Urine Yeast (Budding) Occasional None Seen /hpf Urine Glucose Normal Normal mg/dL Troponin I High Sensitivity 128 *H 137 *H </=34 ng/L White Blood Count 2.8 L 4.4-10.8 10^3/uL Red Blood Count 2.89 L 4.0-5.20 10^6/uL Hemoglobin 9.7 L 12.2-16.2 g/dL Hematocrit 30.4 L 36.0-46.0 % Mean Corpuscular Volume 105.2 H 80.0-100.0 fL Mean Corpuscular Hemoglobin 33.6 H 28.0-32.0 pg Mean Corpuscular Hemoglobin Concent 31.9 L 32.0-36.0 g/dL Red Cell Distribution Width 25.8 H 11.8-14.3 % Platelet Count 82 L 140-450 10^3/uL Mean Platelet Volume 8.7 6.9-10.8 fL Neutrophils (%) (Auto) 68.8 37.0-80.0 % Lymphocytes (%) (Auto) 19.4 10.0-50.0 % Monocytes (%) (Auto) 7.3 0.0-12.0 % Eosinophils (%) (Auto) 1.7 0.0-7.0 % Basophils (%) (Auto) 2.8 H 0.0-2.0 % Neutrophils # (Auto) 1.9 1.6-8.6 10 ^3/uL Lymphocytes # (Auto) 0.5 0.4-5.4 10 ^3/uL Monocytes # (Auto) 0.2 0-1.3 10 ^3/uL Eosinophils # (Auto) 0 0-0.8 10 ^3/uL Basophils # (Auto) 0.1 0-0.2 10 ^3/uL Nucleated Red Blood Cells 0.2 % Prothrombin Time 11.4 9.3-11.8 sec Prothrombin Time INR 1.08 0.9-1.15 Activated Partial Thromboplast Time 38.6 H 24.5-34.5 SEC Sodium Level 145 136-145 mmol/L Potassium Level 4.4 3.5-5.1 mmol/L Chloride Level 119 H 98-107 mmol/L Carbon Dioxide Level 14 L 20-31 mmol/L Anion Gap 12 5-15 Blood Urea Nitrogen 45 H 9-23 mg/dL Creatinine 2.40 H 0.550-1.02 mg/dL Glomerular Filtration Rate Calc 21 >90 mL/min BUN/Creatinine Ratio 18.8 10.0-20.0 Serum Glucose 97 74-106 mg/dL Lactic Acid Level 2.1 *H 0.4-2.0 mmol/L Calcium Level 8.8 8.7-10.4 mg/dL Magnesium Level 2.2 1.6-2.6 mg/dL Total Bilirubin 0.5 0.2-1.0 mg/dL Aspartate Amino Transferase (AST) 39 13-40 U/L Alanine Aminotransferase (ALT) 29 7-40 U/L Alkaline Phosphatase 116 46-116 U/L Ammonia 54 H 11-32 umol/L B-Type Natriuretic Peptide 214.73 0-100 pg/mL Total Protein 5.2 L 5.7-8.2 g/dL Albumin 2.6 L 3.2-4.8 g/dL Lipase 62 H 12-53 U/L Current Medications Medications (Trade) Dose Ordered Sig/Leti Route Start Time Stop Time Status Last Admin Furosemide (Lasix Injection) 40 mg ONCE ONCE IV 01/19/25 14:30 01/19/25 14:31 DC 01/19/25 14:39 Ceftriaxone Sodium/Dextrose 50 ml @ 50 mls/hr ONCE ONCE IV 01/19/25 15:45 01/19/25 16:44 DC 01/19/25 16:[address] [address] Ph: [phone] DIAGNOSTIC IMAGING Diagnostic Imaging Report : [id number] Signed PATIENT: GEORGE ZUNIGA ACCT: [id number] UNIT: [id number] : 1950 LOC: ER ROOM / BED: / AGE / SEX: 74 / F ADM STATUS: REG ER SERVICE 27 ORDERING PHYSICIAN: KEVIN RYDER DO PROCEDURE(s): ABDL - ABDOMEN LIMITED REASON: EVAL ASCITES ORDER NUMBER(s): [id number], ACCESSION NUMBER(s): [id number] Ultrasound abdomen limited INDICATION: EVAL ASCITES Technique: 2-D real-time ultrasound was performed with axial and sagittal images submitted for evaluation. FINDINGS/IMPRESSION: Large amount of ascites is present in all 4 quadrants of the abdomen ATED BY: SUKH BANKS MD DICTATED DATE/TIME: 01/19/251442 SIGNED BY: SUKH BANKS MD SIGNED DATE/TIME: 01/19/251442 CC: [address] [address] Ph: [phone] DIAGNOSTIC IMAGING Diagnostic Imaging Report : [id number] Signed PATIENT: GEORGE ZUNIGA ACCT: [id number] UNIT: [id number] : 1950 LOC: ER ROOM / BED: / AGE / SEX: 74 / F ADM STATUS: REG ER SERVICE 1355 ORDERING PHYSICIAN: KEVIN RYDER DO PROCEDURE(s): ABPL - CT AB PEL WO CON-NO ORAL OR IV REASON: abd pain ORDER NUMBER(s): [id number], ACCESSION NUMBER(s): [id number] CLINICAL INFORMATION: Abdominal pain. TECHNIQUE: Axial CT images of the abdomen and pelvis were obtained without IV contrast. Coronal and sagittal reformatted images were obtained, reviewed, and stored. Evaluation of the parenchymal organs is limited without IV contrast. Evaluation of the bowel and mesentery is limited without oral contrast. All CT scans at this medical facility are performed using dose modulation techniques as appropriate to a performed exam including the following: Automated exposure control was utilized; adjustment of the MA and/or KV according to patient size; and use of iterative reconstruction technique. CTDIvol = 8.17 mGy DLP = 433.05 mGy-cm COMPARISON: CT CT AB PEL WO CON-NO ORAL OR IV on DOS: 12/12/24, CT CT AB PEL WO CON-NO ORAL OR IV on DOS: 10/14/24 FINDINGS: Lung bases: Small bilateral pleural effusions, left greater than right with overlying atelectasis respiratory motion artifact limits evaluation. Liver: Cirrhotic liver morphology. Biliary: Small calcified gallstones in the gallbladder. Spleen: Splenic varicosities of the hilum. Pancreas: Moderate atrophy. Adrenal glands: Unremarkable. No mass. Kidneys: No hydronephrosis. No renal or ureteral calculi. Lobulated contour of the mid to inferior pole of the right kidney, unchanged compared to the prior exam, possible exophytic lesion, not well characterized on noncontrast enhanced exam. Aorta/Vascular: Dense arterial calcification. No abdominal aortic aneurysm. Retroperitoneum: No mass or lymphadenopathy. Bowel/mesentery: Large amount of ascites. Appendix is not visualized. Scattered colonic diverticula. Unable to evaluate for diverticulitis due to the ascites obscuring visualization of the pericolonic fat. Pelvic organs: Anteverted uterus. Pessary in place, unchanged. Bladder: Unremarkable. No mass. Abdominal wall: Diffuse anasarca. Bones: No acute fracture or suspicious intraosseous lesion. IMPRESSION: 1. Large volume ascites. 2. Cirrhotic liver morphology. 3. Colonic diverticulosis. 4. Small bilateral pleural effusions, left greater than right with overlying atelectasis. 5. Anasarca. 6. Lobulated contour of the mid to inferior pole of the right kidney, possibly an exophytic lesion, although not well characterized on noncontrast enhanced exam. Unchanged compared to the prior CT. Ultrasound could be obtained to [facility] evaluate if clinically indicated. Ultrasound findings are inconclusive, renal mass protocol CT or MRI could be obtained. ATED BY: NIKOLAS ROGERS DO DICTATED DATE/TIME: 01/19/25 143 SIGNED BY: NIKOLAS ROGERS DO SIGNED DATE/TIME: 01/19/25 143 CC: Time of 1ST Reevaluation: 22:22 Reevaluation 1ST: Improved Patient Education/Counseling: Diagnosis, Treatment Family Education/Counseling: No Family Present Comments Patient presented with the above HPI.--abdominal distention/ascites----workup was initiated. patient was found with the above mentioned diagnosis. the following medications were ordered: please refer to order lists of meds and tests obtained by myself Dr. Ryder. Patient ED course and VS have been stabilized. Patient has been reassessed in the ED and remained in a stable condition. Pertinent incidental findings were discussed with the patient and/or family. Patient/family voices understanding and is agreeable with plan. Patient has been observed in the ED adequate length of time to insure improvement/stability. Escalation of care considered: Consideration of escalation to observation or admission Lactic acid was elevated. Patient was given empiric antibiotics. Patient was found with elevated troponin however she denies any chest pain or shortness of breath with Patient was ADMITTED to the medicine team for further evaluation and treatment of their presentation. All the reports of any imaging studies that were ordered by myself were reviewed by myself. Departure 1 Departure Time of Disposition: 15:08 Impression: Primary Impression: Ascites Additional Impressions: Thrombocytopenia Hypoalbuminemia Pleural effusion Elevated troponin Acute renal insufficiency Elevated lipase UTI (urinary tract infection) Yeast UTI Disposition: ADMITTED INPATIENT Admit to: Tele Condition: Guarded Discharged With: Self Critical Care Note Critical Care Time?: Yes (55 min-critical care time only) I personally scribed for KEVIN RYDER DO ([facility]) on 01/19/25 at 14:27. Electronically submitted by Jill[facility] Rankin ([facility] I personally scribed for KEVIN RYDER DO ([facility]) on 01/19/25 at 14:38. Electronically submitted by Jillian Rankin ([facility] I personally scribed for KEVIN RYDER DO ([facility]) on 01/19/25 at 21:48. Electronically submitted by Jillian Rankin ([facility] KEVIN RYDER DO Jan 19, 2025 14:27
--- NOTE | 2025-01-19 14:36 | DVH ---
CLINICAL INFORMATION: Abdominal pain. TECHNIQUE: Axial CT images of the abdomen and pelvis were obtained without IV contrast. Coronal and s agittal reformatted images were obtained, reviewed, and stored. Evaluation of the parenchymal organs is limited without IV contrast. Evaluation of the bowel and mesentery is limited without oral contras t. All CT scans at this medical facility are performed using dose modulation techniques as appropriat e to a performed exam including the following: Automated exposure control was utilized; adjustment of the MA and/or KV according to patient size; and use of iterative reconstruction technique. CTDIvol = 8.17 mGy DLP = 433.05 mGy-cm COMPARISON: CT CT AB PEL WO CON-NO ORAL OR IV on DOS: 12/12/24, CT CT AB PEL WO CON-NO ORAL OR IV on D OS: 10/14/24 FINDINGS: Lung bases: Small bilateral pleural effusions, left greater than right with overlying atelectasis res piratory motion artifact limits evaluation. Liver: Cirrhotic liver morphology. Biliary: Small calcified gallstones in the gallbladder. Spleen: Splenic varicosities of the hilum. Pancreas: Moderate atrophy. Adrenal glands: Unremarkable. No mass. Kidneys: No hydronephrosis. No renal or ureteral calculi. Lobulated contour of the mid to inferior po le of the right kidney, unchanged compared to the prior exam, possible exophytic lesion, not well neftali racterized on noncontrast enhanced exam. Aorta/Vascular: Dense arterial calcification. No abdominal aortic aneurysm. Retroperitoneum: No mass or lymphadenopathy. Bowel/mesentery: Large amount of ascites. Appendix is not visualized. Scattered colonic diverticula. Unable to evaluate for diverticulitis due to the ascites obscuring visualization of the pericolonic f at. Pelvic organs: Anteverted uterus. Pessary in place, unchanged. Bladder: Unremarkable. No mass. Abdominal wall: Diffuse anasarca. Bones: No acute fracture or suspicious intraosseous lesion. IMPRESSION: 1. Large volume ascites. 2. Cirrhotic liver morphology. 3. Colonic diverticulosis. 4. Small bilateral pleural effusions, left greater than right with overlying atelectasis. 5. Anasarca. 6. Lobulated contour of the mid to inferior pole of the right kidney, possibly an exophytic lesion, a lthough not well characterized on noncontrast enhanced exam. Unchanged compared to the prior CT. Ultr asound could be obtained to further evaluate if clinically indicated. Ultrasound findings are inconcl usive, renal mass protocol CT or MRI could be obtained.
[2025-01-19] MEDS: FUROSEMIDE 40 MG/4 ML VIAL IV ONE (14:39)
--- NOTE | 2025-01-19 14:45 | DVH ---
Ultrasound abdomen limited INDICATION: EVAL ASCITES Technique: 2-D real-time ultrasound was performed with axial and sagittal images submitted for evalu ation. FINDINGS/IMPRESSION: Large amount of ascites is present in all 4 quadrants of the abdomen
[2025-01-19 14:56] LABS: Basophils # (auto) 0.1 10 ^3/uL (0-0.2); Eosinophils # (auto) 0 10 ^3/uL (0-0.8); Eosinophils % (auto) 1.7 % (0.0-7.0); Hematocrit 30.4 % (36.0-46.0); Hemoglobin 9.7 g/dL (12.2-16.2); Monocytes # (auto) 0.2 10 ^3/uL (0-1.3); White Blood Cell 2.8 10^3/uL (4.4-10.8)
[2025-01-19 14:58] LABS: Basophils % (auto) 2.8 % (0.0-2.0); Lymphocytes # (auto) 0.5 10 ^3/uL (0.4-5.4); Lymphocytes % (auto) 19.4 % (10.0-50.0); Mean Corpuscular Hemoglobin 33.6 pg (28.0-32.0); Mean Corpuscular Hgb Conc. 31.9 g/dL (32.0-36.0); Mean Corpuscular Volume 105.2 fL (80.0-100.0); Monocytes % (auto) 7.3 % (0.0-12.0); Neutrophils # (auto) 1.9 10 ^3/uL (1.6-8.6); Neutrophils % (auto) 68.8 % (37.0-80.0); Nucleated Red Blood Cells % 0.2 %; Platelet Count (auto) 82 10^3/uL (140-450); Red Blood Cells 2.89 10^6/uL (4.0-5.20)
[2025-01-19 15:05] LABS: Red Cell Distribution Width 25.8 % (11.8-14.3)
[2025-01-19 15:21] LABS: INR 1.08 (0.9-1.15); Partial Thromboplastin Time 38.6 SEC (24.5-34.5); Prothrombin Time 11.4 sec (9.3-11.8)
[2025-01-19 15:22] LABS: Alanine Aminotransferase 29 U/L (7-40); Aspartate Aminotransferase 39 U/L (13-40); BUN/Creatinine Ratio 18.8 (10.0-20.0); Bilirubin, Total 0.5 mg/dL (0.2-1.0); Glucose 97 mg/dL (74-106); Magnesium 2.2 mg/dL (1.6-2.6)
[2025-01-19 15:31] LABS: Albumin 2.6 g/dL (3.2-4.8); Alkaline Phosphatase 116 U/L (46-116); Anion Gap 12 (5-15); Blood Urea Nitrogen 45 mg/dL (9-23); Calcium 8.8 mg/dL (8.7-10.4); Carbon Dioxide 14 mmol/L (20-31); Chloride 119 mmol/L (98-107); Lipase 62 U/L (12-53); Potassium 4.4 mmol/L (3.5-5.1); Sodium 145 mmol/L (136-145); Total Protein 5.2 g/dL (5.7-8.2)
[2025-01-19 15:39] LABS: Lactic Acid w/Reflex 2.1 mmol/L (0.4-2.0)
[2025-01-19] MEDS ORDERED: HYDROcodone-ACET 5/325MG TAB PO PRN (16:15)
[2025-01-19] MEDS ORDERED: ONDANSETRON HCL 4 MG/2 ML VIAL IV PRN (16:15)
[2025-01-19] MEDS ORDERED: MORPHINE SULFATE INJ 2 MG/ml SYRG IV PRN (16:15)
[2025-01-19] MEDS ORDERED: NITROGLYCERIN 0.4 MG SL TAB SL PRN (16:15)
[2025-01-19] MEDS: cefTRIAXone 2GM/50ML D5W 50 ML IV ONE (16:22)
[2025-01-19 17:02] LABS: Urine Bacteria FEW /hpf (None Seen); Urine Blood TRACE /uL (Negative); Urine Budding Yeast OCCASIONAL /hpf (None Seen); Urine Clarity Turbid (Clear); Urine Color Light-Yellow (Yellow); Urine Hyaline Cast FEW /lpf (0 - 2); Urine Protein, UAD Negative (Negative); Urine Specific Gravity 1.007 (1.001-1.035); Urine Squamous Epithelial Cell None Seen /hpf (<5); Urine Urobilinogen Normal (Negative); Urine WBC 110 /HPF (0-5)
[2025-01-19] MEDS: SUCRALFATE 1 GM TAB PO SCH (17:19)
[2025-01-19] MEDS: ALBUMIN 25% 100 ML IV SCH (17:58)
--- NOTE | 2025-01-19 18:52 | ECG ---
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
[2025-01-19 19:40] VITALS: PULSE 68; RESP 17; O2SAT 100
[2025-01-19 20:00] VITALS: PULSE 58; PULSE 70; RESP 16; O2SAT 100
[2025-01-19] MEDS: LACTULOSE 20Gm/30ML SOLN PO SCH (21:18)
[2025-01-19] MEDS: MIDODRINE HCL 10 MG TAB PO SCH (21:19)
[2025-01-19] MEDS: rifAXIMin 550 MG TAB PO SCH (21:23)
[2025-01-20] VITALS (7 sets, daily range): BP systolic 104–112; BP diastolic 61–65; PULSE 58–80; RESP 16–20; TEMP 97.3–97.4; O2SAT 98–100
--- NOTE | 2025-01-20 01:56 | DVHHP2 ---
JS ABDULLAHI ROLL SCALE MAN 01/20/25 0156: History of Present Illness Reason for Visit: Abdominal pain History of Present Illness Information in this HPI is limited due to the patient being poor historian. 74 Year old female with past medical history of liver cirrhosis Presents with complaints of abdominal pain and distention. Patient also endorsed nausea and vomiting. During the emergency department evaluation patient found to have large volume ascites. To have positive troponin levels ranging from 137 to 141. At this time patient denies fevers, chills, Shortness of breath, palpitations. Hepatobiliary: Cirrhosis Smoke: No ALCOHOL: none Drugs: None Lives: with Family Review of Systems Constitutional: No: Fever, Chills, Sweats, Weakness, Malaise, Other Eyes: No: Pain, Vision change, Conjunctivae inflammation, Eyelid inflammation, Other, Redness ENT: No: Ear pain, Ear discharge, Nose pain, Nose discharge, Nose congestion, Mouth pain, Mouth swelling, Throat pain, Throat swelling, Other Respiratory: No: Cough, Dry, Shortness of breath, SOB with excertion, Wheezing, Hemoptysis, Pleuritic Pain, Sputum, Wheezing, Other Cardiovascular: No: Chest Pain, Palpitations, Orthopnea, Paroxysmal Noc. Dyspnea, Edema, Lt Headedness, Other Gastrointestinal: Nausea, Vomiting, Abdominal Pain; No: Diarrhea, Constipation, Melena, Hematochezia, Other Genitourinary: No Dysuria, No Frequency, No Incontinence, No Hematuria, No Retention, No Other Musculoskeletal: No: other, neck pain, shoulder pain, arm pain, back pain, hand pain, leg pain, foot pain Skin: No: Rash, Lesions, Jaundice, Bruising, Other Neurological: No: Weakness, Numbness, Incoordination, Change in speech, Confusion, Seizures, Other Allergies: Coded Allergies: NO KNOWN ALLERGIES (Unverified , 10/14/24) Medications Current Medications Medications Dose Ordered Sig/Leti Route Start Time Stop Time Status Last Admin Dose Admin Nitroglycerin 0.4 mg Q5MINP PRN SL 01/19/25 16:15 Morphine Sulfate 2 mg Q30M PRN IV 01/19/25 16:15 Midodrine 10 mg BID PO 01/19/25 22:00 01/19/25 21:19 10 MG Rifaximin 550 mg BID PO 01/19/25 22:00 01/19/25 21:23 550 MG Sucralfate 1 gm ACHS PO 01/19/25 17:00 01/19/25 21:19 1 GM Ceftriaxone Sodium 50 ml @ 100 mls/hr DAILY@09 IV 01/20/25 09:00 Albumin Human 100 ml @ 100 mls/hr Q8H IV 01/19/25 16:15 01/20/25 09:14 01/20/25 01:34 100 MLS/HR Pantoprazole Sodium 40 mg DAILY@0600 PO 01/20/25 06:00 Lactulose 30 ml Q6HR PO 01/19/25 18:00 01/20/25 01:26 30 ML Ondansetron HCl 4 mg Q4HPRN PRN IV 01/19/25 16:15 Acetaminophen/ Hydrocodone Bitart 1 tab Q4HPRN PRN PO 01/19/25 16:15 Exam Vital Signs Vital Signs Date Time Temp Pulse Resp B/P (MAP) Pulse Ox O2 Delivery O2 Flow Rate FiO2 01/20/25 01:00 68 17 112/65 (81) 100 01/19/25 20:00 Room Air* 0 21 01/19/25 16:50 [id number] 36.4 General Appearance: Alert, Cooperative, mild distress HEENT: Atraumatic, PERRLA, EOMI Respiratory: Clear to auscultation, Normal air movement Cardiovascular: Regular rate, Normal S1, Normal S2 Abdominal: Normal bowel sounds, Soft Extremities: No clubbing, No cyanosis Neuro: Normal speech Psych/Mental Status: Mood NL Labs/Xrays Labs Test 01/19/25 20:34 01/19/25 16:06 01/19/25 14:32 Range/Units Lactic Acid Level 1.7 0.4-2.0 mmol/L Troponin I High Sensitivity 141 *H </=34 ng/L Urine Color Light-yellow Yellow Urine Clarity Turbid H Clear Urine pH 5.0 5.0-9.0 Urine Specific [place] 1.007 1.001-1.035 Urine Protein Negative Negative Urine Ketones Negative Negative Urine Blood Trace H Negative /uL Urine Nitrite Negative Negative Urine Bilirubin Negative Negative Urine Urobilinogen Normal Negative mg/dL Urine Leukocyte Esterase 3+ Negative /uL Urine RBC <1 0 - 4 /hpf Urine Microscopic WBC 110 H 0-5 /HPF Urine Squamous Epithelial Cells None seen <5 /hpf Urine Bacteria Few H None Seen /hpf Urine Hyaline Casts Few 0 - 2 /lpf Urine Yeast (Budding) Occasional None Seen /hpf Urine Glucose Normal Normal mg/dL White Blood Count 2.8 L 4.4-10.8 10^3/uL Red Blood Count 2.89 L 4.0-5.20 10^6/uL Hemoglobin 9.7 L 12.2-16.2 g/dL Hematocrit 30.4 L 36.0-46.0 % Mean Corpuscular Volume 105.2 H 80.0-100.0 fL Mean Corpuscular Hemoglobin 33.6 H 28.0-32.0 pg Mean Corpuscular Hemoglobin Concent 31.9 L 32.0-36.0 g/dL Red Cell Distribution Width 25.8 H 11.8-14.3 % Platelet Count 82 L 140-450 10^3/uL Mean Platelet Volume 8.7 6.9-10.8 fL Neutrophils (%) (Auto) 68.8 37.0-80.0 % Lymphocytes (%) (Auto) 19.4 10.0-50.0 % Monocytes (%) (Auto) 7.3 0.0-12.0 % Eosinophils (%) (Auto) 1.7 0.0-7.0 % Basophils (%) (Auto) 2.8 H 0.0-2.0 % Neutrophils # (Auto) 1.9 1.6-8.6 10 ^3/uL Lymphocytes # (Auto) 0.5 0.4-5.4 10 ^3/uL Monocytes # (Auto) 0.2 0-1.3 10 ^3/uL Eosinophils # (Auto) 0 0-0.8 10 ^3/uL Basophils # (Auto) 0.1 0-0.2 10 ^3/uL Nucleated Red Blood Cells 0.2 % Prothrombin Time 11.4 9.3-11.8 sec Prothrombin Time INR 1.08 0.9-1.15 Activated Partial Thromboplast Time 38.6 H 24.5-34.5 SEC Sodium Level 145 136-145 mmol/L Potassium Level 4.4 3.5-5.1 mmol/L Chloride Level 119 H 98-107 mmol/L Carbon Dioxide Level 14 L 20-31 mmol/L Anion Gap 12 5-15 Blood Urea Nitrogen 45 H 9-23 mg/dL Creatinine 2.40 H 0.550-1.02 mg/dL Glomerular Filtration Rate Calc 21 >90 mL/min BUN/Creatinine Ratio 18.8 10.0-20.0 Serum Glucose 97 74-106 mg/dL Calcium Level 8.8 8.7-10.4 mg/dL Magnesium Level 2.2 1.6-2.6 mg/dL Total Bilirubin 0.5 0.2-1.0 mg/dL Aspartate Amino Transferase (AST) 39 13-40 U/L Alanine Aminotransferase (ALT) 29 7-40 U/L Alkaline Phosphatase 116 46-116 U/L Ammonia 54 H 11-32 umol/L B-Type Natriuretic Peptide 214.73 0-100 pg/mL Total Protein 5.2 L 5.7-8.2 g/dL Albumin 2.6 L 3.2-4.8 g/dL Lipase 62 H 12-53 U/L Assessment/Plan Assessment/Plan Large volume ascites secondary to liver cirrhosis Elevated troponin Thrombocytopenia Elevated Ammonia level UTI Chronic renal insufficiency Plan Admit telemetry Cardiology consult. Echocardiogram. Serial troponin. Interventional radiology consult for paracentesis. IV Albumin IV ABX Monitor CBC. Monitor BMP. Trend BUN/creatinine. Correct electrolytes as needed GI ppx protonix / DVT ppx scd Plan discussed with: Patient Date of Service: Jan 20, 2025 Billing Provider: ABHISHEK FINE MD Common Visit Codes: NOT BILLABLE ABHISHEK FINE MD 01/20/25 1326: Review of Systems Allergies: Coded Allergies: NO KNOWN ALLERGIES (Unverified , 10/14/24) Assessment/Plan Assessment/Plan Patient's chart is reviewed and discussed with the nurse practitioner. Patient is seen and evaluated by me this afternoon and discussed with the patient's daughter at bedside. I agree with the nurse practitioner's evaluation, documentation, assessment and care plan as outlined. JS ABDULLAHI NP Jan 20, 2025 01:56 ABHISHEK FINE MD Jan 20, 2025 13:26
[2025-01-20] MEDS: PANTOPRAZOLE 40 MG TAB PO SCH (06:29)
[2025-01-20] MEDS: cefTRIAXone 1GM/50ML D5W 50 ML IV SCH (09:32)
--- NOTE | 2025-01-20 12:30 | DVHINCON2 ---
Date Seen: Jan 20, 2025 Referring Physician MD Sera Reason for Consultation Elevated troponin History of Present Illness This is a 74-year-old female patient who presents to emergency room for chief complaint of abdominal pain and distention. At the time of assessment, the patient is a poor historian and not able to answer very many questions. History obtained from medical records. Cardiology has been consulted at this time for elevated troponin level. Initial twelve lead electrocardiogram reveals normal sinus rhythm with nonspecific ST segment changes to inferior leads. Initial troponin level of 137ng/L with flat trend thereafter. Significant past medical history includes liver cirrhosis, anemia, and chronic kidney disease. Past Medical History Past medical history reviewed. No other significant than mentioned above. Past Surgical History Unable to obtain Family History: Alzheimer's disease Cerebrovascular accident (CVA) G8 SISTER G8 SISTER Family History Family history reviewed. Social History Denies the use of tobacco, alcohol or illicit drugs. Allergies: Coded Allergies: NO KNOWN ALLERGIES (Unverified , 10/14/24) Home Meds Active Scripts Omeprazole (Gnp Omeprazole) 20 Mg Tab, 1 TAB PO DAILY, #90 TAB 1 Refill Prov:ABHISHEK FINE MD 01/20/25 Lactulose (Lactulose) 10 Gm/15 Ml Risa, 30 ML PO BID, #1000 ML Prov:ABHISHEK FINE MD 01/20/25 Sucralfate (CARAFATE) 1 Gm Tab, 1 GM PO ACHS, #120 TAB Prov:ABHISHEK FINE MD 01/20/25 Rifaximin (Xifaxan) 550 Mg Tab, 1 TAB PO BID, #28 TAB Prov:ABHISHEK FINE MD 01/20/25 Midodrine Hcl (Midodrine Hcl) 10 Mg Tab, 10 MG PO BID, #120 TAB Prov:ABHISHEK FINE MD 01/20/25 Reported Medications Ferrous Sulfate (Ferosul) 325 Mg Tab, 325 MG PO DAILY, TAB 12/13/24 Discontinued Reported Medications Spironolactone (Spironolactone) 50 Mg Tab, 1 TAB PO BID, #30 TAB 5 Refills 12/13/24 Bumetanide (Bumetanide) 2 Mg Tab, 2 MG PO BID for 30 Days, MG 12/13/24 Home Meds Home medications reviewed. Current Medications Current Medications Medications (Trade) Dose Ordered Sig/Leti Route PRN Reason Start Time Stop Time Status Last Admin Nitroglycerin (Ntrostat Sublingual) 0.4 mg Q5MINP PRN SL FOR CHEST PAIN 01/19/25 16:15 Morphine Sulfate 2 mg Q30M PRN IV FOR CHEST PAIN 01/19/25 16:15 Midodrine (Proamatine Tablet) 10 mg BID PO 01/19/25 22:00 01/20/25 09:32 Rifaximin (Xifaxan) 550 mg BID PO 01/19/25 22:00 01/20/25 09:32 Sucralfate (Carafate Tab) 1 gm ACHS PO 01/19/25 17:00 01/20/25 06:29 Ceftriaxone Sodium 50 ml @ 100 mls/hr DAILY@09 IV 01/20/25 09:00 01/20/25 09:32 Albumin Human 100 ml @ 100 mls/hr Q8H IV 01/19/25 16:15 01/20/25 09:14 DC 01/20/25 08:28 Pantoprazole Sodium (Protonix Tablet) 40 mg DAILY@0600 PO 01/20/25 06:00 01/20/25 06:29 Lactulose 30 ml Q6HR PO 01/19/25 18:00 01/20/25 06:29 Ondansetron HCl (Zofran) 4 mg Q4HPRN PRN IV NAUSEA / VOMITING 01/19/25 16:15 Acetaminophen/ Hydrocodone Bitart ([place] 5/325MG Tab) 1 tab Q4HPRN PRN PO SEVERE PAIN (7-10 PAIN SCALE) 01/19/25 16:15 Review of Systems Constitutional: No symptom reported Ears, Nose, & Throat: No symptom reported Eyes: No symptom reported Neurological: No symptoms reported Pulmonary/Respiratory: No symptoms reported Cardiovascular: No symptom reported Gastrointestinal: Abdominal pain and distention Genitourinary: No symptom reported Musculoskeletal: No symptom reported Skin: No symptom reported Psychiatric: No symptom reported Endocrine: No symptom reported Hematologic/Lymphatic: No symptom reported Vital Signs Vital Signs Date Time Temp Pulse Resp B/P (MAP) Pulse Ox O2 Delivery O2 Flow Rate FiO2 01/20/25 12:15 97.3 68 16 106/64 (78) 100 97.3 01/20/25 08:00 Room Air* 0 21 Physical Exam General Appearance: Cooperative. Pulmonary/Respiratory: Clear, bilateral breaths sounds. Cardiovascular/Chest: Regular rate and rhythm. Peripheral Pulses: 2+ Radial (R). 2+ Radial (L). 2+ Pedal (R). 2+ Pedal (L) Abdominal Exam: Large, distended Ankle Exam: Negative ankle edema Lower extremities: Negative lower extremity edema Neuro/Mental Status: A/OX2, confused Thoughts/Psych: Normal thought pattern. Appearance: No acute distress. Skin Exam: Generalized ecchymosis. Normal color. Warm and dry. Labs/Diagnostic Data Labs Test 01/20/25 05:46 01/19/25 20:34 01/19/25 16:06 01/19/25 14:32 Range/Units Lactic Acid Level 1.7 0.4-2.0 mmol/L Troponin I High Sensitivity 141 *H </=34 ng/L Urine Color Light-yellow Yellow Urine Clarity Turbid H Clear Urine pH 5.0 5.0-9.0 Urine Specific [place] 1.007 1.001-1.035 Urine Protein Negative Negative Urine Ketones Negative Negative Urine Blood Trace H Negative /uL Urine Nitrite Negative Negative Urine Bilirubin Negative Negative Urine Urobilinogen Normal Negative mg/dL Urine Leukocyte Esterase 3+ Negative /uL Urine RBC <1 0 - 4 /hpf Urine Microscopic WBC 110 H 0-5 /HPF Urine Squamous Epithelial Cells None seen <5 /hpf Urine Bacteria Few H None Seen /hpf Urine Hyaline Casts Few 0 - 2 /lpf Urine Yeast (Budding) Occasional None Seen /hpf Urine Glucose Normal Normal mg/dL White Blood Count 2.8 L 4.4-10.8 10^3/uL Red Blood Count 2.89 L 4.0-5.20 10^6/uL Hemoglobin 9.7 L 12.2-16.2 g/dL Hematocrit 30.4 L 36.0-46.0 % Mean Corpuscular Volume 105.2 H 80.0-100.0 fL Mean Corpuscular Hemoglobin 33.6 H 28.0-32.0 pg Mean Corpuscular Hemoglobin Concent 31.9 L 32.0-36.0 g/dL Red Cell Distribution Width 25.8 H 11.8-14.3 % Platelet Count 82 L 140-450 10^3/uL Mean Platelet Volume 8.7 6.9-10.8 fL Neutrophils (%) (Auto) 68.8 37.0-80.0 % Lymphocytes (%) (Auto) 19.4 10.0-50.0 % Monocytes (%) (Auto) 7.3 0.0-12.0 % Eosinophils (%) (Auto) 1.7 0.0-7.0 % Basophils (%) (Auto) 2.8 H 0.0-2.0 % Neutrophils # (Auto) 1.9 1.6-8.6 10 ^3/uL Lymphocytes # (Auto) 0.5 0.4-5.4 10 ^3/uL Monocytes # (Auto) 0.2 0-1.3 10 ^3/uL Eosinophils # (Auto) 0 0-0.8 10 ^3/uL Basophils # (Auto) 0.1 0-0.2 10 ^3/uL Nucleated Red Blood Cells 0.2 % Prothrombin Time 11.4 9.3-11.8 sec Prothrombin Time INR 1.08 0.9-1.15 Activated Partial Thromboplast Time 38.6 H 24.5-34.5 SEC Sodium Level 145 136-145 mmol/L Potassium Level 4.4 3.5-5.1 mmol/L Chloride Level 119 H 98-107 mmol/L Carbon Dioxide Level 14 L 20-31 mmol/L Anion Gap 12 5-15 Blood Urea Nitrogen 45 H 9-23 mg/dL Creatinine 2.40 H 0.550-1.02 mg/dL Glomerular Filtration Rate Calc 21 >90 mL/min BUN/Creatinine Ratio 18.8 10.0-20.0 Serum Glucose 97 74-106 mg/dL Calcium Level 8.8 8.7-10.4 mg/dL Magnesium Level 2.2 1.6-2.6 mg/dL Total Bilirubin 0.5 0.2-1.0 mg/dL Aspartate Amino Transferase (AST) 39 13-40 U/L Alanine Aminotransferase (ALT) 29 7-40 U/L Alkaline Phosphatase 116 46-116 U/L Ammonia 54 H 11-32 umol/L B-Type Natriuretic Peptide 214.73 0-100 pg/mL Total Protein 5.2 L 5.7-8.2 g/dL Albumin 2.6 L 3.2-4.8 g/dL Lipase 62 H 12-53 U/L Assessment Liver cirrhosis with ascites Urosepsis NSTEMI, likely type II secondary to above Thrombocytopenia Acute on chronic anemia Chronic kidney disease Cachexia Plan/Recommendation We will continue with the following plan/recommendations (Dr. Castellanos): Case discussed with . We will proceed with obtaining a transthoracic echocardiogram to evaluate cardiac function. Elevated troponin level likely secondary phenomenon due to demand mismatch ischemia. In the setting of an unremarkable transthoracic echocardiogram, there is no further inpatient cardiac workup indicated at this time. Thank you for allowing us to care for this patient. Please call with any questions or concerns. Critical care time spent: 42 minutes This medical document was created using an electronic medical record system with voice recognition software and computerized dictation system. Although this document has been carefully reviewed, there might still be some phonetic and typographical errors. Occasional wrong-word or ``sound-alike substitutions may have occurred due to the inherent limitations of voice recognition software. These areas are purely typographical due to imperfections of the software programs and do not reflect any compromise in the patient's medical care. Please read the chart carefully and recognize, using context, where these substitutions have occurred. Plan discussed with: Patient NYHA Physical activity limitations: NA Date of Service: Jan 20, 2025 Billing Provider: BELLA SUTTON Cardiology Common Codes: 39796-[id number] INP/OBS CARE (High) Cardiology Consultation Codes: 30547-[id number] CONSULT <45MIN BELLA SUTTON Jan 20, 2025 12:30
--- NOTE | 2025-01-20 12:34 | DVH ---
US PARACENTESIS, HISTORY: ASCITES PROCEDURE: Informed consent was obtained. The patient was placed in supine position. A limited locali zation ultrasound of the abdomen was obtained, and the skin site over the largest pocket of fluid was marked and entry site was prepped with chlorhexidine which was allowed to dry and draped in the usua l sterile fashion. Time out was performed. Following administration of 1% lidocaine local anesthetic, a 5 [place] centesis needle catheter was percutaneously inserted into the peritoneal collection until fluid was aspirated. The catheter was advanced into the fluid collection and the needle removed. Abo ut 9600 cc of fluid was aspirated . The catheter was then removed and a sterile dressing applied. No immediate complication was identified. FINDINGS: Limited ultrasound imaging demonstrates moderate ascites. Aspirated fluid was clear and ser ous. IMPRESSION: US-guided paracentesis with 9.6L removed.
[2025-01-20] MEDS: ALBUMIN 25% 100 ML IV ONE (13:06)
[2025-01-20] MEDS ORDERED: MIDO10TA3 PO (13:26)
[2025-01-20] MEDS ORDERED: OMEP20TA PO (13:26)
[2025-01-20] MEDS ORDERED: RIFA550T PO (13:26)
[2025-01-20] MEDS ORDERED: LACT10SO3 PO (13:26)
[2025-01-20] MEDS ORDERED: SUCR1TAB31 PO (13:26)
--- NOTE | 2025-01-20 13:47 | DVHDS2 ---
Discharge Summary Date of Admission Jan 19, 2025 at 16:06 Date of Discharge: Jan 20, 2025 Labs/Diagnostic Data: Laboratory Results Test 01/20/25 12:42 01/20/25 05:46 01/19/25 20:34 01/19/25 16:06 Lactic Acid Level 1.7 mmol/L (0.4-2.0) Troponin I High Sensitivity 141 ng/L (</=34) Urine Color Light-yellow (Yellow) Urine Clarity Turbid (Clear) Urine pH 5.0 (5.0-9.0) Urine Specific [place] 1.007 (1.001-1.035) Urine Protein Negative (Negative) Urine Ketones Negative (Negative) Urine Blood Trace /uL (Negative) Urine Nitrite Negative (Negative) Urine Bilirubin Negative (Negative) Urine Urobilinogen Normal mg/dL (Negative) Urine Leukocyte Esterase 3+ /uL (Negative) Urine RBC <1 /hpf (0 - 4) Urine Microscopic WBC 110 /HPF (0-5) Urine Squamous Epithelial Cells None seen /hpf (<5) Urine Bacteria Few /hpf (None Seen) Urine Hyaline Casts Few /lpf (0 - 2) Urine Yeast (Budding) Occasional /hpf (None Urine Glucose Normal mg/dL (Normal) Test 01/19/25 14:32 White Blood Count 2.8 10^3/uL (4.4-10.8) Red Blood Count 2.89 10^6/uL (4.0-5.20) Hemoglobin 9.7 g/dL (12.2-16.2) Hematocrit 30.4 % (36.0-46.0) Mean Corpuscular Volume 105.2 fL (80.0-100.0) Mean Corpuscular Hemoglobin 33.6 pg (28.0-32.0) Mean Corpuscular Hemoglobin Concent 31.9 g/dL (32.0-36.0) Red Cell Distribution Width 25.8 % (11.8-14.3) Platelet Count 82 10^3/uL (140-450) Mean Platelet Volume 8.7 fL (6.9-10.8) Neutrophils (%) (Auto) 68.8 % (37.0-80.0) Lymphocytes (%) (Auto) 19.4 % (10.0-50.0) Monocytes (%) (Auto) 7.3 % (0.0-12.0) Eosinophils (%) (Auto) 1.7 % (0.0-7.0) Basophils (%) (Auto) 2.8 % (0.0-2.0) Neutrophils # (Auto) 1.9 10 ^3/uL (1.6-8.6) Lymphocytes # (Auto) 0.5 10 ^3/uL (0.4-5.4) Monocytes # (Auto) 0.2 10 ^3/uL (0-1.3) Eosinophils # (Auto) 0 10 ^3/uL (0-0.8) Basophils # (Auto) 0.1 10 ^3/uL (0-0.2) Nucleated Red Blood Cells 0.2 % Prothrombin Time 11.4 sec (9.3-11.8) Prothrombin Time INR 1.08 (0.9-1.15) Activated Partial Thromboplast Time 38.6 SEC (24.5-34.5) Sodium Level 145 mmol/L (136-145) Potassium Level 4.4 mmol/L (3.5-5.1) Chloride Level 119 mmol/L (98-107) Carbon Dioxide Level 14 mmol/L (20-31) Anion Gap 12 (5-15) Blood Urea Nitrogen 45 mg/dL (9-23) Creatinine 2.40 mg/dL (0.550-1.02) Glomerular Filtration Rate Calc 21 mL/min (>90) BUN/Creatinine Ratio 18.8 (10.0-20.0) Serum Glucose 97 mg/dL (74-106) Calcium Level 8.8 mg/dL (8.7-10.4) Magnesium Level 2.2 mg/dL (1.6-2.6) Total Bilirubin 0.5 mg/dL (0.2-1.0) Aspartate Amino Transferase (AST) 39 U/L (13-40) Alanine Aminotransferase (ALT) 29 U/L (7-40) Alkaline Phosphatase 116 U/L (46-116) Ammonia 54 umol/L (11-32) B-Type Natriuretic Peptide 214.73 pg/mL (0-100) Total Protein 5.2 g/dL (5.7-8.2) Albumin 2.6 g/dL (3.2-4.8) Lipase 62 U/L (12-53) Other Laboratory Tests 01/19/25 14:32 Brief Hx & Hospital Course: Information in this HPI is limited due to the patient being poor historian. 74 Year old female with past medical history of liver cirrhosis Presents with complaints of abdominal pain and distention. Patient also endorsed nausea and vomiting. During the emergency department evaluation patient found to have large volume ascites. To have positive troponin levels ranging from 137 to 141. At this time patient denies fevers, chills, Shortness of breath, palpitations. She is admitted and underwent a large volume therapeutic paracentesis. Patient is elevated troponins possibly felt secondary to liver congestion with a diastolic heart failure. Patient is seen and evaluated by Cardiology. Recommended no further interventions. Patient did not have any chest pain symptoms. Patient post paracentesis feeling better. She is back to baseline normal status. Therefore I have talked with the patient and her daughter at bedside regarding paracentesis and need for frequent paracentesis at least once a month as an outpatient basis. I have also talked to her regarding her troponins and 2D echocardiogram results. Overall given patient is feeling better having had necessary workup and evaluations it is felt she could be safely discharged home. Patient daughter verbalized understanding over hospital diagnosis, treatment she received, discharge medications, discharge instructions and agree with the discharge follow-up plan for care. Given her failure to thrive with end-stage liver disease she does appear to be hospice appropriate. This is discussed with the daughter however at present she declined hospice. Consults/Reason for consult Assessment Liver cirrhosis with ascites Urosepsis NSTEMI, likely type II secondary to above Thrombocytopenia Acute on chronic anemia Chronic kidney disease Cachexia Plan/Recommendation We will continue with the following plan/recommendations (Dr. Mukherjee): Case discussed with . We will proceed with obtaining a transthoracic echocardiogram to evaluate cardiac function. Elevated troponin level likely secondary phenomenon due to demand mismatch ischemia. In the setting of an unremarkable transthoracic echocardiogram, there is no further inpatient cardiac workup indicated at this time. Thank you for allowing us to care for this patient. Please call with any questions or concerns. Critical care time spent: 42 minutes This medical document was created using an electronic medical record system with voice recognition software and computerized dictation system. Although this document has been carefully reviewed, there might still be some phonetic and typographical errors. Occasional wrong-word or ``sound-alike substitutions may have occurred due to the inherent limitations of voice recognition software. These areas are purely typographical due to imperfections of the software programs and do not reflect any compromise in the patient's medical care. Please read the chart carefully and recognize, using context, where these substitutions have occurred. Plan discussed with: Patient NYHA 2 Physical activity limitations: NA Date of Service: Jan 20, 2025 Billing Provider: BELLA SUTTON Cardiology Common Codes: 03507-OIZLXVQ INP/OBS CARE (High) Cardiology Consultation Codes: 58983-[id number] CONSULT <45MIN Operations or Procedures ORDER NUMBER(s): [id number], ACCESSION NUMBER(s): [id number] US PARACENTESIS, HISTORY: ASCITES PROCEDURE: Informed consent was obtained. The patient was placed in supine position. A limited localization ultrasound of the abdomen was obtained, and the skin site over the largest pocket of fluid was marked and entry site was prepped with chlorhexidine which was allowed to dry and draped in the usual sterile fashion. Time out was performed. Following administration of 1% lidocaine local anesthetic, a 5 [place] centesis needle catheter was percutaneously inserted into the peritoneal collection until fluid was aspirated. The catheter was advanced into the fluid collection and the needle removed. About 9600 cc of fluid was aspirated . The catheter was then removed and a sterile dressing applied. No immediate complication was identified. FINDINGS: Limited ultrasound imaging demonstrates moderate ascites. Aspirated fluid was clear and serous. IMPRESSION: US-guided paracentesis with 9.6L removed. R NUMBER(s): [id number], ACCESSION NUMBER(s): [id number] APPROVED REPORT EXAM: Two-dimensional and M-mode echocardiogram with Doppler and color Doppler. Blood Pressure: 104/64 mmHg RISK FACTORS Height: 5'3", Weight: 137 DIMENSIONS LVDd 4.3 (3.8-5.7cm) LA (2D) 4.3 (1.9-4.0cm) Aortic Root (2.0- 3.7cm) LVDs 2.3 (2.5-4.0cm) LA (MM) (1.9-4.0cm) Aortic Cusp Exc (1.5- 2.0cm) EF (%) 79.7 (55-70%) Rt. Atrium 3.8 (1.9-4.0cm) Asc. Aorta cm IVSd 0.9 (0.7-1.1cm) RV (D) 3.9 (1.8-2.4cm) Mitral Valve Mitral Mitral Stenosis E wave 0.56m/s MV Mean GR. mmHg A wave 0.71m/s MV Peak GR. mmHg E/A ratio 0.8 2D MVA cm2 DECEL Time 239ms PRESS 1/2 Time ms Aortic Valve Aortic Valve Aortic Stenosis V1 1.11m/s AO Mean GR. 4mmHg V2 1.27m/s AO Peak GR. 6mmHg LVOT Diameter 2.0 (1.8-2.4cm) Doppler BOGDAN 2.74cm2 Other Information Quality : Technically Limited Rhythm : Technically limited study due to body habitus. Conclusion Off axis views. Right atrial enlargement. Right ventricular and left atrial enlargement. Valves appear to be structurally normal. EF of 75% with normal RV function. Doppler reveals mild TR. 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, elevated troponin unclear etiology Discharge Disposition: Home with Health Services Discharge Instruct/Medications Diet: Consistent carbohydrate, Cardiac 2g Na,low cholest Diet comment: Mechanical soft diet Activity: Light activity Activity comment: Fall precautions Follow Up/Referral: Primary care physician next week and to arrange outpatient monthly paracentesis with the [facility] radiology and further management of end-stage liver disease with a manager personal Medications: As prescribed per discharge med reconciliation list Changed Medications: Lactulose (Lactulose) 10 Gm/15 Ml Risa 30 ML PO BID, #1000 ML (Changed from: 10 GM; DAILY) Sucralfate (Carafate) 1 Gm Tab 1 GM PO ACHS, #120 TAB (Changed from: OR) Continued Medications: Ferrous Sulfate (Ferosul) 325 Mg Tab 325 MG PO DAILY, TAB Midodrine Hcl (Midodrine Hcl) 10 Mg Tab 10 MG PO BID, #120 TAB (This prescription has been renewed) Omeprazole (Gnp Omeprazole) 20 Mg Tab 1 TAB PO DAILY, #90 TAB 1 Refill (This prescription has been renewed) Rifaximin (Xifaxan) 550 Mg Tab 1 TAB PO BID, #28 TAB (This prescription has been renewed) Discontinued Medications: Bumetanide (Bumetanide) 2 Mg Tab 2 MG PO BID for 30 Days, MG Spironolactone (Spironolactone) 50 Mg Tab 1 TAB PO BID, #30 TAB 5 Refills Discharge Statement: "Patient was advised to return to the ER or call 911 if any headaches, dizziness, shortness of breath, chest pain, abdominal pain, bleeding, fevers, or worsening of medical condition. Patient was counseled about treatment plan, medications, possible side effects, patientverbalized understanding. All questions were answered to the best of my ability. 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
[2025-01-20 13:57] LABS: Body Fluid Polymorphonuclear 9 % (0-25); Body Fluid Red Blood Cells 29 CUMM (0-2000); Body Fluid White Blood Cells 29 CUMM (0-200)
[2025-01-20] MEDS ORDERED: LACTULOSE 20Gm/30ML SOLN PO SCH (22:00)
--- NOTE | 2025-01-21 13:33 | DVHSR ---
APPROVED REPORT EXAM: Two-dimensional and M-mode echocardiogram with Doppler and color Doppler. Blood Pressure: 104/64 mmHg RISK FACTORS Height: 5'3", Weight: 137 DIMENSIONS LVDd4.3 (3.8-5.7cm)LA (2D)4.3 (1.9-4.0cm)Aortic Root (2.0-3.7cm) LVDs2.3 (2.5-4.0cm)LA (MM) (1.9-4.0cm)Aortic Cusp Exc (1.5-2.0cm) EF (%) 79.7 (55-70%)Rt. Atrium3.8 (1.9-4.0cm)Asc. Aorta cm IVSd0.9 (0.7-1.1cm)RV (D)3.9 (1.8-2.4cm) Mitral Valve MitralMitral Stenosis E wave0.56m/sMV Mean GR.mmHg A wave0.71m/sMV Peak GR.mmHg E/A ratio0.82D MVAcm2 DECEL [id number] 1/2 [place] Aortic Valve Aortic ValveAortic Stenosis V11.11m/[place] Mean GR.4mmHg V21.27m/[place] Peak GR.6mmHg LVOT Diameter2.0 (1.8-2.4cm)Doppler AVA2.74cm2 Other Information Quality : Technically LimitedRhythm : Technically limited study due to body habitus. Conclusion Off axis views. Right atrial enlargement. Right ventricular and left atrial enlargement. Valves appear to be structurally normal. EF of 75% with normal RV function. Doppler reveals mild TR. No pericardial effusion masses or vegetations discernible
[2025-01-21 16:07] LABS: Protein, Body Fluid 1.4 g/dL (.)
== END 2025-01-20 17:50 | disposition home health service (06) | DRG 433 ==
LOC: ER 13:14 → EDBD 13:14 → EDUNIT# 13:14 → OVERFLOW 16:06 → TELE-WESTW 18:40
PROVIDERS: ADMIT Hospitalist; ATTEND Hospitalist
PROC: 0W9G3ZZ Drainage of Peritoneal Cavity, Percutaneous Approach (ICD-10-PCS; principal; 2025-01-20)
DX: K74.60 Unspecified cirrhosis of liver (principal); J90 Pleural effusion, not elsewhere classified; N30.00 Acute cystitis without hematuria; R64 Cachexia; R62.7 Adult failure to thrive; I12.9 Hypertensive chronic kidney disease with stage 1 through stage 4 chronic kidney disease, or unspecified chronic kidney disease; N18.9 Chronic kidney disease, unspecified; D69.6 Thrombocytopenia, unspecified; K72.10 Chronic hepatic failure without coma; D64.9 Anemia, unspecified; E88.09 Other disorders of plasma-protein metabolism, not elsewhere classified; Z88.1 Allergy status to other antibiotic agents; Z79.899 Other long term (current) drug therapy; Z79.2 Long term (current) use of antibiotics; Z82.0 Family history of epilepsy and other diseases of the nervous system; Z82.3 Family history of stroke; Z68.24 Body mass index [BMI] 24.0-24.9, adult
CPT/HCPCS: 36415; 49083; 74176; 76705; 76942; 80053; 81001; 82140; 83605; 83690; 83735; 83880; 83986; 84484; 85025; 85610; 85730; 87081; 87205; 89051; 93005; 93306; 96365; 96367; 96375; 99291; G0378; P9047

== ENCOUNTER 2025-01-31 19:40 | Inpatient (IN) | payer OTHER, MEDICAID ==
[~2025-01-31] VITALS: Ht 162.6 cm; Wt 44.8 kg
[~2025-01-31 19:40] MED LIST changes: -BUME2TAB5 PO; +FURO20TA4 PO; +OMEP1CAP70 PO; +SPIR25TA8 PO; -SPIR50TA5 PO; -SUCR1TAB31 OR; +SUCR1TAB31 PO
--- NOTE | 2025-01-31 19:55 | ED.PDOC ---
GI ASSESSMENT HPI Comments 74-year-old female who came to ER EMS for abdominal pain. 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 Patient states she still feels abdominal discomfort/ fullness with nausea. No fever noted. Chief Complaint: Abdominal Pain Time Seen by MD: 19:55 Primary Care Provider: UTO Reviewed Notes: Nurses Notes Allergies: Coded Allergies: NO KNOWN ALLERGIES (Unverified , 10/14/24) Home Meds Active Scripts Omeprazole (Gnp Omeprazole) 20 Mg Tab, 1 TAB PO DAILY, #90 TAB 1 Refill Prov:ABHISHEK FINE MD 01/20/25 Lactulose (Lactulose) 10 Gm/15 Ml Risa, 30 ML PO BID, #1000 ML Prov:ABHISHEK FINE MD 01/20/25 Sucralfate (CARAFATE) 1 Gm Tab, 1 GM PO ACHS, #120 TAB Prov:ABHISHEK FINE MD 01/20/25 Rifaximin (Xifaxan) 550 Mg Tab, 1 TAB PO BID, #28 TAB Prov:ABHISHEK FINE MD 01/20/25 Midodrine Hcl (Midodrine Hcl) 10 Mg Tab, 10 MG PO BID, #120 TAB Prov:ABHISHEK FINE MD 01/20/25 Reported Medications Ferrous Sulfate (Ferosul) 325 Mg Tab, 325 MG PO DAILY, TAB 12/13/24 Information Source: Patient, Emergency Med Personnel Mode of Arrival: EMS Timing: Days Duration: Intermittent Prehospital treatment: None Quality: Aching Vomitus: None Stool: Normal Severity: Moderate Recent Hx of: Liver Disease Pain Location: Diffuse Associated sign and symptoms: Nausea, Abdominal Pain Past Medical History PAST MEDICAL HISTORY: HTN, Liver Past Medical History (Other): Failure to thrive Surgical History: Denies all surgeries GENERATION ENGINEERING TECHNOLOGIST History: Denies all GENERATION ENGINEERING TECHNOLOGIST Hx Family History Family History: Reviewed,noncontributory to illness Social History Smoker: Non-Smoker Alcohol: Denies ETOH Use Drugs: Denies Drug Use Lives In: Home Constitutional: denies: chills, diaphoresis, fatigue, fever, malaise, sweats, weakness, others EENTM: denies: blurred vision, double vision, ear bleeding, ear discharge, ear drainage, ear pain, ear ringing, eye pain, eye redness, hearing loss, mouth pain, mouth swelling, nasal discharge, nose bleeding, nose congestion, nose pain, photophobia, tearing, throat pain, throat swelling, voice changes, others Respiratory: denies: cough, hemoptysis, orthopnea, SOB at rest, shortness of breath, SOB with excertion, stridor, wheezing, others Cardiovascular: denies: chest pain, dizzy spells, diaphoresis, Dyspnea on exertion, edema, irregular heart beat, left arm pain, lightheadedness, palpitations, PND, syncope, others Gastrointestinal: reports: abdomen distended, abdominal pain, nausea; denies: blood streaked bowels, constipated, diarrhea, dysphagia, difficulty swallowing, hematemesis, melena, poor appetite, poor fluid intake, rectal bleeding, rectal pain, vomiting, others Genitourinary: denies: abnormal vagina bleeding, burning, dyspareunia, dysuria, flank pain, frequency, hematuria, incontinence, pain, , vagina discharge, urgency, others Neurological: denies: dizziness, fainting, headache, left sided numbness, left sided weakness, numbness, paresthesia, pre-existing deficit, right sided numbness, right sided weakness, seizure, speech problems, tingling, tremors, wea kness, others Musculoskeletal: denies: back pain, gout, joint pain, joint swelling, muscle pain, muscle stiffness, neck pain, others Integumetry: denies: bruises, change in color, change in hair/nails, dryness, l aceration, lesions, lumps, rash, wounds, others Allergic/Immunocompromised: denies: Difficulty Healing, Frequent Infections, Hives, Itching, others Hematologic/Lymphatic: denies: anemia, blood clots, easy bleeding, easy bruising, swollen glands, others Endocrine: denies: excessive hunger, excessive sweating, excessive thirst, excessive urination, flushing, intolerance to cold, intolerance to heat, unexplained weight gain, unexplained weight loss, others Psychiatric: denies: anxiety, bipolar disorder, depression, hopeless, panic disorder, schizophrenia, sleepless, suicidal, others Physical Exam General Appearance: No Apparent Distress, Normal HEENT: Normal ENT Inspection, Pharynx Normal, TMs Normal Neck: Full Range of Motion, Non-Tender, Normal, Normal Inspection Respiratory: Chest Non-Tender, Lungs Clear, No Accessory Muscle Use, No Respiratory Distress, Normal Breath Sounds Cardiovascular: No Edema, No JVD, No Murmur, No Gallop, Normal Peripheral Pulses, Regular Rate/Rhythm Breast Exam: Deferred Gastrointestinal: No Organomegaly, Non Tender, No Pulsatile Mass, Normal Bowel Sounds, Soft Genitalia: Deferred Pelvic: Deferred Rectal: Deferred Extremities: No calf tenderness, Normal capillary refill, Normal inspection, Normal range of motion, Non-tender, No pedal edema Musculoskeletal : Apperance: Normal Neurologic: Alert, foundry melt supervisor II-XII nml as Tested, No Motor Deficits, Normal Affect, Normal Mood, No Sensory Deficits Cerebellar Function: Normal Reflexes: Normal Skin: Dry, Normal Color, Warm Lymphatic: No Adenopathy EKG EKG : Pulse Rate (adult): 84 Cardiac Rhythm: NSR Was a procedure done? Was a procedure done?: No GI differential Dx Differential Diagnosis: Gastritis/PUD, Gastroenteritis, Hepatitis, Dehydration, Electrolyte Imbalance, Anemia X-Ray, Labs, Meds, VS Vital Signs Date Time Temp Pulse Resp B/P (MAP) Pulse Ox O2 Delivery O2 Flow Rate FiO2 01/31/25 23:09 98.3 73 13 131/90 (104) 100 98.3 01/31/25 20:01 84 01/31/25 19:58 84 01/31/25 19:45 98.4 102 18 128/84 (99) 100 98.4 Lab Test 01/31/25 20:08 Range/Units White Blood Count 3.0 L 4.4-10.8 10^3/uL Red Blood Count 2.31 L 4.0-5.20 10^6/uL Hemoglobin 8.0 L 12.2-16.2 g/dL Hematocrit 24.4 L 36.0-46.0 % Mean Corpuscular Volume 105.7 H 80.0-100.0 fL Mean Corpuscular Hemoglobin 34.5 H 28.0-32.0 pg Mean Corpuscular Hemoglobin Concent 32.6 32.0-36.0 g/dL Red Cell Distribution Width 22.9 H 11.8-14.3 % Platelet Count 113 L 140-450 10^3/uL Mean Platelet Volume 7.8 6.9-10.8 fL Neutrophils (%) (Auto) 65.5 37.0-80.0 % Lymphocytes (%) (Auto) 21.6 10.0-50.0 % Monocytes (%) (Auto) 9.1 0.0-12.0 % Eosinophils (%) (Auto) 1.8 0.0-7.0 % Basophils (%) (Auto) 2.0 0.0-2.0 % Neutrophils # (Auto) 2.0 1.6-8.6 10 ^3/uL Lymphocytes # (Auto) 0.6 0.4-5.4 10 ^3/uL Monocytes # (Auto) 0.3 0-1.3 10 ^3/uL Eosinophils # (Auto) 0.1 0-0.8 10 ^3/uL Basophils # (Auto) 0.1 0-0.2 10 ^3/uL Nucleated Red Blood Cells 0.2 % Prothrombin Time 11.7 9.3-11.8 sec Prothrombin Time INR 1.12 0.9-1.15 Activated Partial Thromboplast Time 37.8 H 24.5-34.5 SEC Sodium Level 142 136-145 mmol/L Potassium Level 5.2 H 3.5-5.1 mmol/L Chloride Level 117 H 98-107 mmol/L Carbon Dioxide Level 14 L 20-31 mmol/L Anion Gap 11 5-15 Blood Urea Nitrogen 51 H 9-23 mg/dL Creatinine 1.90 H 0.550-1.02 mg/dL Glomerular Filtration Rate Calc 28 >90 mL/min BUN/Creatinine Ratio 26.8 H 10.0-20.0 Serum Glucose 93 74-106 mg/dL Calcium Level 8.6 L 8.7-10.4 mg/dL Magnesium Level 2.1 1.6-2.6 mg/dL Total Bilirubin 0.5 0.2-1.0 mg/dL Aspartate Amino Transferase (AST) 30 13-40 U/L Alanine Aminotransferase (ALT) 23 7-40 U/L Alkaline Phosphatase 107 46-116 U/L Ammonia 135 *H 11-32 umol/L Total Protein 5.4 L 5.7-8.2 g/dL Albumin 3.0 L 3.2-4.8 g/dL Lipase 61 H 12-53 U/L Current Medications Medications (Trade) Dose Ordered Sig/Leti Route Start Time Stop Time Status Last Admin Sodium Chloride 500 ml @ 500 mls/hr Q1H ONCE IVB 01/31/25 20:00 01/31/25 20:59 DC 01/31/25 20:00 Time of 1ST Reevaluation: 19:52 Reevaluation 1ST: Unchanged Patient Education/Counseling: Diagnosis, Treatment Family Education/Counseling: No Family Present Sepsis focused exam: focus exam completed, time: (0) Departure 1 Departure Time of Disposition: 23:37 Impression: Primary Impression: Liver cirrhosis Additional Impressions: Ascites Hepatic encephalopathy Acute renal injury Disposition: ADMITTED INPATIENT Admit to: Med Surg Condition: Guarded Discharged With: Self Comments Weakness and Altered Mental Status in Setting of Hepatic Encephalopathy Chief Complaint: Generalized weakness and discomfort History of Present Illness: 74-year-old female with known history of liver cirrhosis and ascites presents to the Emergency Department with a 2-day history of generalized weakness and abnormal discomfort. Patient has evidence of hepatic encephalopathy with elevated ammonia levels and concurrent acute kidney injury. Laboratory studies also demonstrate stable pancytopenia and mild hyperkalemia. Review of Systems: Constitutional: Positive for generalized weakness Neurological: Altered mental status consistent with hepatic encephalopathy Past Medical History: 1. Liver cirrhosis 2. Ascites 3. Chronic pancytopenia Lab Results: WBC: 3.0 K/uL (Low) Hemoglobin: 8.24 g/dL (Low) Platelets: 113 K/uL (Low) Ammonia: 135 (Elevated) BUN: 51 mg/dL (Elevated) Creatinine: 1.9 mg/dL (Elevated) Potassium: 5.2 mEq/L (Elevated) Imaging and Other Relevant Results: No imaging studies documented in business coordinator Medical Decision Making: Summary Statement: 74-year-old female with history of cirrhosis presenting with altered mental status, acute kidney injury, and electrolyte abnormalities requiring urgent intervention. Problem List: 1. Hepatic encephalopathy 2. Acute kidney injury 3. Hyperkalemia 4. Pancytopenia 5. Cirrhosis with ascites Differential Diagnosis: 1. Hepatic encephalopathy 2. Prerenal acute kidney injury 3. Hepatorenal syndrome 4. Medication-induced kidney injury 5. Volume depletion ED Course: Patient received judicious IV fluid administration. Decision made to admit for management of hepatic encephalopathy and acute kidney injury. Assessment and Plan: 1. Hepatic Encephalopathy: - Elevated ammonia level of 135 - Admit for IV lactulose administration and close monitoring 2. Acute Kidney Injury with Hyperkalemia: - Creatinine 1.9, BUN 51, Potassium 5.2 - Careful fluid management initiated - Will require close monitoring of renal function and electrolytes 3. Pancytopenia: - Currently stable - Will monitor trending of counts during admission 4. Disposition: - Admission to Medicine service - Requires close monitoring of mental status, renal function, and electrolytes Billing Information: ICD-10: K72.90 - Hepatic failure, unspecified without coma ICD-10: N17.9 - Acute kidney failure, unspecified ICD-10: E87.5 - Hyperkalemia ICD-10: D61.818 - Other pancytopenia ICD-10: K76.6 - Portal hypertension Critical Care Note Critical Care Time?: Yes (35 min-critical care time only) Critical care comment: Total critical care time: Approximately 36 minutes Due to a high probability of clinically significant, life threatening deterioration, the patient required my highest level of preparedness to intervene emergently and I personally spent this critical care time directly and personally managing the patient. This critical care time included obtaining a history; examining the patient; pulse oximetry; ordering and review of studies; arranging urgent treatment with development of a management plan; evaluation of patient's response to treatment; frequent reassessment; and, discussions with other providers. This critical care time was performed to assess and manage the high probability of imminent, life-threatening deterioration that could result in multi-organ failure. It was exclusive of separately billable procedures and treating other patients. Stability Stability form required: No Heart Score Heart Score: Heart Score Response (Comments) Value History N/A 0 EKG N/A 0 Age N/A 0 Risk Factors N/A 0 Troponin N/A 0 Total 0 I personally scribed for IVANA CONTRERAS MD ([email or web address]) on 01/31/25 at 19:55. Electronically submitted by Wes Gallo ([email or web address]). I personally scribed for IVANA CONTRERAS MD ([email or web address]) on 01/31/25 at 20:01. Electronically submitted by Wes Gallo ([email or web address]). IVANA CONTRERAS MD Jan 31, 2025 19:55
[2025-01-31] MEDS: SODIUM CHLORIDE 0.9% 500 ML IVB ONE (20:00)
[2025-01-31] MEDS: IOHEXOL 300 MG/ML 100ML BOTTLE IJ ONE (20:18)
[2025-01-31 20:24] LABS: Basophils # (auto) 0.1 10 ^3/uL (0-0.2); Eosinophils # (auto) 0.1 10 ^3/uL (0-0.8); Hematocrit 24.4 % (36.0-46.0); Lymphocytes # (auto) 0.6 10 ^3/uL (0.4-5.4); Monocytes # (auto) 0.3 10 ^3/uL (0-1.3)
[2025-01-31 20:25] LABS: Eosinophils % (auto) 1.8 % (0.0-7.0); Lymphocytes % (auto) 21.6 % (10.0-50.0); Mean Corpuscular Hemoglobin 34.5 pg (28.0-32.0); Mean Corpuscular Hgb Conc. 32.6 g/dL (32.0-36.0); Mean Corpuscular Volume 105.7 fL (80.0-100.0); Monocytes % (auto) 9.1 % (0.0-12.0); Neutrophils % (auto) 65.5 % (37.0-80.0); Nucleated Red Blood Cells % 0.2 %; Platelet Count (auto) 113 10^3/uL (140-450); Red Blood Cells 2.31 10^6/uL (4.0-5.20)
[2025-01-31 20:26] LABS: Red Cell Distribution Width 22.9 % (11.8-14.3)
[2025-01-31 20:45] LABS: Alanine Aminotransferase 23 U/L (7-40); Alkaline Phosphatase 107 U/L (46-116); Anion Gap 11 (5-15); Aspartate Aminotransferase 30 U/L (13-40); BUN/Creatinine Ratio 26.8 (10.0-20.0); Glucose 93 mg/dL (74-106); Magnesium 2.1 mg/dL (1.6-2.6); Sodium 142 mmol/L (136-145)
[2025-01-31 20:46] LABS: Bilirubin, Total 0.5 mg/dL (0.2-1.0)
[2025-01-31 20:48] LABS: Blood Urea Nitrogen 51 mg/dL (9-23); Calcium 8.6 mg/dL (8.7-10.4); Carbon Dioxide 14 mmol/L (20-31); Chloride 117 mmol/L (98-107); Lipase 61 U/L (12-53); Potassium 5.2 mmol/L (3.5-5.1); Total Protein 5.4 g/dL (5.7-8.2)
[2025-01-31 20:49] LABS: INR 1.12 (0.9-1.15); Partial Thromboplastin Time 37.8 SEC (24.5-34.5); Prothrombin Time 11.7 sec (9.3-11.8)
--- NOTE | 2025-01-31 20:56 | ECG ---
[facility] Test Date: 2025-01-31 Test Time: 19:58:23 Pat Name: GEORGE ZUNIGA Department: ED Room: 0275 Gender: F Medical Charge Entry Specialist: MAURICE : 1950 Requested By: IVANA CONTRERAS Order Number: [id number] Reading MD: Al Castellanos Measurements Intervals [place] Rate: 84 P: 63 MS: 127 QRS: -5 QRSD: 91 T: 43 QT: 446 QTc: 528 Interpretive Statements Sinus rhythm Low voltage, precordial leads Abnormal R-wave progression, early transition Consider anterolateral infarct Prolonged QT interval Artifact in lead(s) I,II,III,aVR,aVL,aVF,V1,V2,V6 Electronically Signed On 02-01-2025 22:14:35 PDT by Al Castellanos Please click the below link to view image of tracing.
--- NOTE | 2025-01-31 22:09 | DVH ---
CHEST RADIOGRAPH Indication: SOB Technique: Single frontal view of the chest was obtained Comparison: XY CHEST XRAY 1 VIEW on DOS: 12/19/24, XY CHEST XRAY 1 VIEW on DOS: 12/17/24, XY CHEST XRAY 1 VIEW on DOS: 12/16/24 FINDINGS: Lines and Tubes: None Lungs: Clear Pleura: No effusion. No pneumothorax. Cardiomediastinal contours: Unremarkable Bones: Unremarkable IMPRESSION: Clear lungs. Overlying left upper extremity limits evaluation.
--- NOTE | 2025-01-31 22:19 | DVH ---
Exam: CT CT AB PEL WO CON-NO ORAL OR IV History: abd pain, h/o cirrhosis Comparison Study: January 19, 2025 Technique: Multidetector spiral CT of the abdomen was performed from lung bases to pubic symphysis. I maging was performed without IV contrast. Axial, coronal and sagittal multiplanar reformats were obta ined from the axial data set by the technologist. Radiation Dose : 1. Abdomen/Pelvis: CTDIvol 8 mGy, DLP 411 mGy*cm. Findings: Evaluation of solid organs is limited due to lack of intravenous contrast use. Lung Bases: No acute or significant lung base finding. Normal heart size. No pleural or pericardial effusion. Liver: Cirrhotic shrunken liver Gallbladder and Biliary Tree: High density material layering in the gallbladder most likely represent gallstones Spleen: Unremarkable Pancreas: The pancreas is grossly normal in appearance. Adrenal Glands: Unremarkable Kidneys: Kidneys are grossly normal without calculi or hydronephrosis. Bladder: Grossly unremarkable for degree of distention. Bowel: Moderate hiatal hernia. Small bowel and colon are normal in caliber and distribution. The appe ndix is not visualized. Ascites: Large ascites Lymphadenopathy: No mesenteric, retroperitoneal or periportal lymphadenopathy. Abdominal Wall and Mesentery: Mild diffuse anasarca. Vasculature: The visualized abdominal aorta is normal in size and caliber. Evaluation of abdominal a nd pelvic vessels is limited due to lack of intravenous contrast. Pelvic Organs: Intact pessary Musculoskeletal: No aggressive focal bony lesions, acute fractures or dislocation. IMPRESSION: Compared to most recent prior CT abdomen pelvis from January 19, 2025 no significant interval change. Large ascites with cirrhotic appearing liver. Layering tiny gallstones. Other ancillary findings desc ribed above.
[2025-01-31 23:41] VITALS: PULSE 73; RESP 13; O2SAT 100
[2025-02-01 08:00] VITALS: PULSE 54; RESP 17; O2SAT 98
[2025-02-01 10:21] LABS: Urine Bacteria FEW /hpf (None Seen); Urine Blood 2+ /uL (Negative); Urine Budding Yeast FEW /hpf (None Seen); Urine Clarity Ex.Turbid (Clear); Urine Color Colorless (Yellow); Urine Protein, UAD TRACE (Negative); Urine Specific Gravity 1.013 (1.001-1.035); Urine Squamous Epithelial Cell FEW /hpf (<5); Urine Urobilinogen Normal (Negative); Urine WBC 1317 /HPF (0-5); Urine WBC Clumps PRESENT /hpf (None Seen); Urine pH 5.5 (5.0-9.0)
[2025-02-01] MEDS ORDERED: MORPHINE SULFATE INJ 2 MG/ml SYRG IV PRN (14:15)
[2025-02-01] MEDS ORDERED: DOCUSATE SOD 100 MG CAP PO PRN (14:15)
[2025-02-01] MEDS: SODIUM CHLORIDE 0.9% 1,000 ML IV ONE (15:20)
[2025-02-01] MEDS: LACTULOSE 20Gm/30ML SOLN PO SCH (15:25)
[2025-02-01 16:13] VITALS: BP 99/70; PULSE 65; RESP 14; O2SAT 100
--- NOTE | 2025-02-01 16:24 | DVHHP2 ---
History of Present Illness Reason for Visit: Abdominal ascites History of Present Illness 74-year-old female with a known history of advanced liver cirrhosis with recurrent ascites presented to the hospital with the abdominal pain and abdominal distention. Patient is currently confused ammonia level is more than 100. Admission was recommended for hepatic encephalopathy. Denies known family member with daughter at bedside at this point of time. Most of the history obtained from ER records. Hepatobiliary: Cirrhosis Past Surgical History: None Review of Systems Review of Systems Review of system can not be obtained as patient is currently altered. Allergies: Coded Allergies: NO KNOWN ALLERGIES (Unverified , 10/14/24) Medications Current Medications Medications Dose Ordered Sig/Leti Route Start Time Stop Time Status Last Admin Dose Admin Acetaminophen/ Hydrocodone Bitart 1 tab Q4HP PRN PO 02/01/25 14:15 Ondansetron HCl 4 mg Q4HP PRN IV 02/01/25 14:15 Docusate Sodium 100 mg BIDPRN PRN PO 02/01/25 14:15 Acetaminophen 650 mg Q6HP PRN PO 02/01/25 14:15 Morphine Sulfate 2 mg Q4HPRN PRN IV 02/01/25 14:15 Lactulose 30 ml Q4H PO 02/01/25 15:00 02/01/25 15:25 30 ML Exam Vital Signs Vital Signs Date Time Temp Pulse Resp B/P (MAP) Pulse Ox O2 Delivery O2 Flow Rate FiO2 02/01/25 15:00 73 12 100/73 (82) 100 02/01/25 12:05 98.1 98.1 02/01/25 08:00 Room Air* 0 21 Exam HEENT pupils are reactive Neck is supple CV is S1-S2 regular rate and rhythm Diminished breath sounds bases GI positive bowel sounds positive ascites 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 Labs/Xrays Labs Test 02/01/25 09:25 01/31/25 20:08 Range/Units Urine Color Colorless Yellow Urine Clarity Ex.turbid Clear Urine pH 5.5 5.0-9.0 Urine Specific [place] 1.013 1.001-1.035 Urine Protein Trace H Negative Urine Ketones Negative Negative Urine Blood 2+ H Negative /uL Urine Nitrite Negative Negative Urine Bilirubin Negative Negative Urine Urobilinogen Normal Negative mg/dL Urine Leukocyte Esterase 3+ Negative /uL Urine RBC 24 0 - 4 /hpf Urine WBC Clumps Present None Seen /hpf Urine Microscopic WBC 1317 H 0-5 /HPF Urine Squamous Epithelial Cells Few <5 /hpf Urine Bacteria Few H None Seen /hpf Urine Yeast (Budding) Few None Seen /hpf Urine Glucose Normal Normal mg/dL White Blood Count 3.0 L 4.4-10.8 10^3/uL Red Blood Count 2.31 L 4.0-5.20 10^6/uL Hemoglobin 8.0 L 12.2-16.2 g/dL Hematocrit 24.4 L 36.0-46.0 % Mean Corpuscular Volume 105.7 H 80.0-100.0 fL Mean Corpuscular Hemoglobin 34.5 H 28.0-32.0 pg Mean Corpuscular Hemoglobin Concent 32.6 32.0-36.0 g/dL Red Cell Distribution Width 22.9 H 11.8-14.3 % Platelet Count 113 L 140-450 10^3/uL Mean Platelet Volume 7.8 6.9-10.8 fL Neutrophils (%) (Auto) 65.5 37.0-80.0 % Lymphocytes (%) (Auto) 21.6 10.0-50.0 % Monocytes (%) (Auto) 9.1 0.0-12.0 % Eosinophils (%) (Auto) 1.8 0.0-7.0 % Basophils (%) (Auto) 2.0 0.0-2.0 % Neutrophils # (Auto) 2.0 1.6-8.6 10 ^3/uL Lymphocytes # (Auto) 0.6 0.4-5.4 10 ^3/uL Monocytes # (Auto) 0.3 0-1.3 10 ^3/uL Eosinophils # (Auto) 0.1 0-0.8 10 ^3/uL Basophils # (Auto) 0.1 0-0.2 10 ^3/uL Nucleated Red Blood Cells 0.2 % Prothrombin Time 11.7 9.3-11.8 sec Prothrombin Time INR 1.12 0.9-1.15 Activated Partial Thromboplast Time 37.8 H 24.5-34.5 SEC Sodium Level 142 136-145 mmol/L Potassium Level 5.2 H 3.5-5.1 mmol/L Chloride Level 117 H 98-107 mmol/L Carbon Dioxide Level 14 L 20-31 mmol/L Anion Gap 11 5-15 Blood Urea Nitrogen 51 H 9-23 mg/dL Creatinine 1.90 H 0.550-1.02 mg/dL Glomerular Filtration Rate Calc 28 >90 mL/min BUN/Creatinine Ratio 26.8 H 10.0-20.0 Serum Glucose 93 74-106 mg/dL Calcium Level 8.6 L 8.7-10.4 mg/dL Magnesium Level 2.1 1.6-2.6 mg/dL Total Bilirubin 0.5 0.2-1.0 mg/dL Aspartate Amino Transferase (AST) 30 13-40 U/L Alanine Aminotransferase (ALT) 23 7-40 U/L Alkaline Phosphatase 107 46-116 U/L Ammonia 135 *H 11-32 umol/L Total Protein 5.4 L 5.7-8.2 g/dL Albumin 3.0 L 3.2-4.8 g/dL Lipase 61 H 12-53 U/L Assessment/Plan Assessment/Plan 74-year-old female with a end-stage liver disease with recurrent ascites presented to the hospital with the abdominal distention found to have 1. Recurrent ascites 2. End-stage liver disease with liver cirrhosis 3. Pancytopenia secondary to liver disease 4. Hyperammonemia 5. Acute kidney injury suspected secondary to vasomotor nephropathy 6. Metabolic acidosis secondary to acute kidney injury -admit to med surge, gentle IV hydration for metabolic acidosis, IR consult for paracentesis, lactulose, -repeat ammonia level. Plan discussed with: Other My Orders Orders - JUMANA MANCILLA MD Procedure Category Date Status Time Admit ADMIT 02/01/25 Transmitted 14:13 Code Status CODE 02/01/25 Transmitted 14:13 2 Gm Sodium Diet DIET 02/01/25 Transmitted Dinner Hydrocodone-Acet PHA 02/01/25 In Process 5/325mg Tab ([place] 14:15 Ondansetron Hcl PHA 02/01/25 In Process (Zofran) 14:15 Docusate Sodium PHA 02/01/25 In Process Capsule (Colace 14:15 Fall Risk Precautions ARCHANA 02/01/[address] 14:13 Condition: Fair ARCHANA 02/01/25 In Process 14:13 Acetaminophen Tablet PHA 02/01/25 In Process (Tylenol Tablet) 14:15 Morphine Sulfate PHA 02/01/25 In Process Injection 14:15 Lactulose Oral PHA 02/01/25 In Process 15:00 Ammonia LAB 02/02/25 Verified 04:00 * Radiologist Consult CONS 02/01/25 Transmitted 14:52 Sodium Chloride 0.9% PHA 02/01/25 In Process 15:00 Basic Metabolic Panel LAB 02/01/25 Transmitted 16:20 Date of Service: Feb 01, 2025 Billing Provider: JUMANA MANCILLA MD Common Visit Codes: NOT BILLABLE JUMANA MANCILLA MD Feb 01, 2025 16:24
[2025-02-01] MEDS ORDERED: LACT10PA2 PO (17:00)
[2025-02-01 17:47] LABS: Basophils # (auto) 0.1 10 ^3/uL (0-0.2); Eosinophils # (auto) 0.1 10 ^3/uL (0-0.8); Hematocrit 25.3 % (36.0-46.0); Hemoglobin 7.9 g/dL (12.2-16.2); Lymphocytes # (auto) 0.6 10 ^3/uL (0.4-5.4); Monocytes # (auto) 0.2 10 ^3/uL (0-1.3); Platelet Count (auto) 93 10^3/uL (140-450); Red Blood Cells 2.23 10^6/uL (4.0-5.20)
[2025-02-01 17:49] LABS: Basophils % (auto) 2.9 % (0.0-2.0); Eosinophils % (auto) 3.4 % (0.0-7.0); Mean Corpuscular Hemoglobin 35.3 pg (28.0-32.0); Mean Corpuscular Hgb Conc. 31.1 g/dL (32.0-36.0); Mean Corpuscular Volume 113.7 fL (80.0-100.0); Monocytes % (auto) 10.6 % (0.0-12.0); Neutrophils # (auto) 1.2 10 ^3/uL (1.6-8.6); Neutrophils % (auto) 56.1 % (37.0-80.0); Nucleated Red Blood Cells % 0.2 %; White Blood Cell 2.2 10^3/uL (4.4-10.8)
[2025-02-01 17:52] LABS: Anion Gap 9 (5-15); Potassium 4.6 mmol/L (3.5-5.1); Sodium 144 mmol/L (136-145)
[2025-02-01 17:53] LABS: Calcium 8.7 mg/dL (8.7-10.4)
[2025-02-01 17:58] LABS: BUN/Creatinine Ratio 21.6 (10.0-20.0); Glucose 100 mg/dL (74-106)
[2025-02-01 18:09] LABS: Red Cell Distribution Width 23.5 % (11.8-14.3)
[2025-02-01 18:10] LABS: Blood Urea Nitrogen 43 mg/dL (9-23); Carbon Dioxide 16 mmol/L (20-31); Chloride 119 mmol/L (98-107)
[2025-02-01 20:00] VITALS: PULSE 84; RESP 19; O2SAT 100
[2025-02-01 21:00] VITALS: BP 121/60; PULSE 84; RESP 19; TEMP 97.4; O2SAT 100
[2025-02-01] MEDS: ONDANSETRON HCL 4 MG/2 ML VIAL IV PRN (21:28)
[2025-02-02 01:00] VITALS: BP 139/76; PULSE 76; RESP 19; TEMP 97.6; O2SAT 97
[2025-02-02 05:00] VITALS: BP 117/66; PULSE 96; RESP 20; TEMP 97.7; O2SAT 100
[2025-02-02 08:00] VITALS: PULSE 84; O2SAT 96
[2025-02-02 09:00] VITALS: BP 117/79; PULSE 88; RESP 16; TEMP 97.6; O2SAT 92
--- NOTE | 2025-02-02 10:44 | DVHINCON2 ---
Date of service: Feb 02, 2025 Referring Physician rose marie Reason for Consultation Acute kidney injury History of Present Illness 74 years old history of liver cirrhosis ascites, Chronic kidney disease four presented with chief complaints abdominal pain and abdominal distention, and confusion found to have elevated ammonia levels and very low bicarb Past Medical History As per HPI Allergies: Coded Allergies: NO KNOWN ALLERGIES (Unverified , 10/14/24) Home Meds Active Scripts Omeprazole (Gnp Omeprazole) 20 Mg Tab, 1 TAB PO DAILY, #90 TAB 1 Refill Prov:ABHISHEK FINE MD 01/20/25 Sucralfate (CARAFATE) 1 Gm Tab, 1 GM PO ACHS, #120 TAB Prov:ABHISHEK FINE MD 01/20/25 Rifaximin (Xifaxan) 550 Mg Tab, 1 TAB PO BID, #28 TAB Prov:ABHISHEK FINE MD 01/20/25 Midodrine Hcl (Midodrine Hcl) 10 Mg Tab, 10 MG PO BID, #120 TAB Prov:ABHISHEK FINE MD 01/20/25 Reported Medications Spironolactone (Spironolactone) 25 Mg Tab, 1 TAB PO DAILY, #90 TAB 1 Refill 02/01/25 Lactulose (Lactulose) 10 Gm Ceasar, 15 GM PO TID, PACK 02/01/25 Ferrous Sulfate (Ferosul) 325 Mg Tab, 325 MG PO DAILY, TAB 12/13/24 Current Medications Current Medications Medications (Trade) Dose Ordered Sig/Leti Route PRN Reason Start Time Stop Time Status Last Admin Acetaminophen/ Hydrocodone Bitart ([place] 5/325MG Tab) 1 tab Q4HP PRN PO MODERATE PAIN (4-6 PAIN SCALE) 02/01/25 14:15 Ondansetron HCl (Zofran) 4 mg Q4HP PRN IV NAUSEA / VOMITING 02/01/25 14:15 02/02/25 06:19 Docusate Sodium (Colace Capsule) 100 mg BIDPRN PRN PO FOR CONSTIPATION 02/01/25 14:15 Acetaminophen (Tylenol Tablet) 650 mg Q6HP PRN PO PAIN SCALE 1-3 OR TEMP>100.4 02/01/25 14:15 Morphine Sulfate 2 mg Q4HPRN PRN IV SEVERE PAIN (7-10 PAIN SCALE) 02/01/25 14:15 Lactulose 30 ml Q4H PO 02/01/25 15:00 02/02/25 06:31 Family History: Alzheimer's disease Cerebrovascular accident (CVA) G8 SISTER G8 SISTER Review of Systems Unknown exactly H&P Exam Vital Signs/I&O Vital Sign Date Time Temp Pulse Resp B/P (MAP) Pulse Ox O2 Delivery O2 Flow Rate FiO2 02/02/25 05:00 97.7 96 20 117/66 (83) 100 97.7 02/01/25 20:00 Room Air* 0 21 Intake and Output 02/01/25 02/02/25 19:00 07:00 Intake Total 1680 ml Balance 1680 ml Intake Oral 300 ml IV Total 1380 ml # Voids 1 3 # Bowel Movements 1 Physical Exam abd -distended confused Labs/Diagnostic Data Labs/Diagnostic Data Laboratory Tests Test 02/02/25 05:18 02/01/25 17:20 02/01/25 09:25 01/31/25 20:08 Range/Units Ammonia 89 H 135 *H 11-32 umol/L White Blood Count 2.2 L 3.0 L 4.4-10.8 10^3/uL Red Blood Count 2.23 L 2.31 L 4.0-5.20 10^6/uL Hemoglobin 7.9 L 8.0 L 12.2-16.2 g/dL Hematocrit 25.3 L 24.4 L 36.0-46.0 % Mean Corpuscular Volume 113.7 #H 105.7 H 80.0-100.0 fL Mean Corpuscular Hemoglobin 35.3 H 34.5 H 28.0-32.0 pg Mean Corpuscular Hemoglobin Concent 31.1 L 32.6 32.0-36.0 g/dL Red Cell Distribution Width 23.5 H 22.9 H 11.8-14.3 % Platelet Count 93 L 113 L 140-450 10^3/uL Mean Platelet Volume 7.8 7.8 6.9-10.8 fL Neutrophils (%) (Auto) 56.1 65.5 37.0-80.0 % Lymphocytes (%) (Auto) 27.0 21.6 10.0-50.0 % Monocytes (%) (Auto) 10.6 9.1 0.0-12.0 % Eosinophils (%) (Auto) 3.4 1.8 0.0-7.0 % Basophils (%) (Auto) 2.9 H 2.0 0.0-2.0 % Neutrophils # (Auto) 1.2 L 2.0 1.6-8.6 10 ^3/uL Lymphocytes # (Auto) 0.6 0.6 0.4-5.4 10 ^3/uL Monocytes # (Auto) 0.2 0.3 0-1.3 10 ^3/uL Eosinophils # (Auto) 0.1 0.1 0-0.8 10 ^3/uL Basophils # (Auto) 0.1 0.1 0-0.2 10 ^3/uL Nucleated Red Blood Cells 0.2 0.2 % Sodium Level 144 142 136-145 mmol/L Potassium Level 4.6 5.2 H 3.5-5.1 mmol/L Chloride Level 119 H 117 H 98-107 mmol/L Carbon Dioxide Level 16 L 14 L 20-31 mmol/L Anion Gap 9 11 5-15 Blood Urea Nitrogen 43 H 51 H 9-23 mg/dL Creatinine 1.99 H 1.90 H 0.550-1.02 mg/dL Glomerular Filtration Rate Calc 26 28 >90 mL/min BUN/Creatinine Ratio 21.6 H 26.8 H 10.0-20.0 Serum Glucose 100 93 74-106 mg/dL Calcium Level 8.7 8.6 L 8.7-10.4 mg/dL Urine Color Colorless Yellow Urine Clarity Ex.turbid Clear Urine pH 5.5 5.0-9.0 Urine Specific [place] 1.013 1.001-1.035 Urine Protein Trace H Negative Urine Ketones Negative Negative Urine Blood 2+ H Negative /uL Urine Nitrite Negative Negative Urine Bilirubin Negative Negative Urine Urobilinogen Normal Negative mg/dL Urine Leukocyte Esterase 3+ Negative /uL Urine RBC 24 0 - 4 /hpf Urine WBC Clumps Present None Seen /hpf Urine Microscopic WBC 1317 H 0-5 /HPF Urine Squamous Epithelial Cells Few <5 /hpf Urine Bacteria Few H None Seen /hpf Urine Yeast (Budding) Few None Seen /hpf Urine Glucose Normal Normal mg/dL Prothrombin Time 11.7 9.3-11.8 sec Prothrombin Time INR 1.12 0.9-1.15 Activated Partial Thromboplast Time 37.8 H 24.5-34.5 SEC Magnesium Level 2.1 1.6-2.6 mg/dL Total Bilirubin 0.5 0.2-1.0 mg/dL Aspartate Amino Transferase (AST) 30 13-40 U/L Alanine Aminotransferase (ALT) 23 7-40 U/L Alkaline Phosphatase 107 46-116 U/L Total Protein 5.4 L 5.7-8.2 g/dL Albumin 3.0 L 3.2-4.8 g/dL Lipase 61 H 12-53 U/L Assessment Acute kidney injury on Chronic kidney disease 4 hemodynamic etiology Metabolic acidosis End-stage liver disease with cirrhosis ascites Pancytopenia Recommendations Bicarb drip 1 L Paracentesis Midodrine and octreotide Plan discussed with: Other BRENDA HANSON MD Feb 02, 2025 10:44
[2025-02-02] MEDS: SODIUM BICARB 50mEq/50ml Vial 150 ML in D5W 5% 1,000 ML IV ONE (11:00)
--- NOTE | 2025-02-02 11:20 | DVH ---
US PARACENTESIS, HISTORY: ASCITES PROCEDURE: Informed consent was obtained. The patient was placed in supine position. A limited locali zation ultrasound of the abdomen was obtained, and the skin site over the largest pocket of fluid was marked and entry site was prepped with chlorhexidine which was allowed to dry and draped in the usua l sterile fashion. Time out was performed. Following administration of 1% lidocaine local anesthetic, a 5 [place] centesis needle catheter was percutaneously inserted into the peritoneal collection until fluid was aspirated. The catheter was advanced into the fluid collection and the needle removed. Abo ut 8400 cc of fluid was aspirated and specimen sent for appropriate cultures/cytology/cultures and cy tology. The catheter was then removed and a sterile dressing applied. No immediate complication was identified. FINDINGS: Limited ultrasound imaging demonstrates moderate ascites. Aspirated fluid was clear and ser ous. IMPRESSION: US-guided paracentesis with 8.4L removed.
[2025-02-02] MEDS: MIDODRINE HCL 10 MG TAB PO SCH (11:30)
[2025-02-02] MEDS: ACETAMINOPHEN 325 MG TAB PO PRN (11:45)
[2025-02-02 12:20] LABS: Body Fluid Red Blood Cells 21 CUMM (0-2000); Body Fluid White Blood Cells 269 CUMM (0-200)
[2025-02-02] MEDS: HYDROcodone-ACET 5/325MG TAB PO PRN (12:26)
[2025-02-02 13:00] VITALS: BP 110/42; PULSE 55; RESP 16; TEMP 97.4; O2SAT 99
[2025-02-02] MEDS: OCTREOTIDE ACETATE 100 MCG/ML VL SUBCUT SCH (15:56)
--- NOTE | 2025-02-02 16:14 | DVHPN2 ---
Subjective Overnight events noted. Patient underwent paracentesis in which 800 was removed Reviewed: Care Plan Changes from previous H/P or p: No Changes Objective Vitals Vital Signs Date Time Temp Pulse Resp B/P (MAP) Pulse Ox O2 Delivery O2 Flow Rate FiO2 02/02/25 09:00 97.6 88 16 117/79 (92) 92 97.6 02/01/25 20:00 Room Air* 0 21 Intake/Output Intake and Output 02/02/25 07:00 Intake Total 1680 ml Balance 1680 ml Intake Oral 300 ml IV Total 1380 ml # Voids 4 # Bowel Movements 1 Exam HEENT pupils are reactive , cachexia Neck is supple CV is S1-S2 regular rate and rhythm Respiratory diminished BS on bases GI positive bowel sounds , ostial mg ascites Extremity no edema CONSULTING INTERN no motor deficit Medications Current Medications Medications Dose Ordered Sig/Leti Route Start Time Stop Time Status Last Admin Dose Admin Acetaminophen/ Hydrocodone Bitart 1 tab Q4HP PRN PO 02/01/25 14:15 02/02/25 12:26 1 TAB Ondansetron HCl 4 mg Q4HP PRN IV 02/01/25 14:15 02/02/25 11:30 4 MG Docusate Sodium 100 mg BIDPRN PRN PO 02/01/25 14:15 Acetaminophen 650 mg Q6HP PRN PO 02/01/25 14:15 02/02/25 11:45 650 MG Morphine Sulfate 2 mg Q4HPRN PRN IV 02/01/25 14:15 Lactulose 30 ml Q4H PO 02/01/25 15:00 02/02/25 11:16 30 ML Midodrine 10 mg TID@0600,1200,1800 PO 02/02/25 12:00 02/02/25 11:30 10 MG Octreotide Acetate 100 mcg TID SUBCUT 02/02/25 14:00 Laboratory Results Laboratory Tests 02/01/25 17:20 Chemistry Test 02/01/25 17:20 Calcium Level 8.7 mg/dL (8.7-10.4) Urinalysis Test 02/01/25 09:25 Urine Color Colorless (Yellow) Urine Clarity Ex.turbid (Clear) Urine pH 5.5 (5.0-9.0) Urine Specific [place] 1.013 (1.001-1.035) Urine Protein Trace (Negative) H Urine Ketones Negative (Negative) Urine Blood 2+ /uL (Negative) H Urine Nitrite Negative (Negative) Urine Bilirubin Negative (Negative) Urine Urobilinogen Normal mg/dL (Negative) Urine Leukocyte Esterase 3+ /uL (Negative) Urine RBC 24 /hpf (0 - 4) Urine WBC Clumps Present /hpf (None Seen) Urine Microscopic WBC 1317 /HPF (0-5) H Urine Squamous Epithelial Cells Few /hpf (<5) Urine Bacteria Few /hpf (None Seen) H Urine Yeast (Budding) Few /hpf (None Seen) Urine Glucose Normal mg/dL (Normal) Assessment/Plan Assessment/Plan 74-year-old female with a end-stage liver disease with recurrent ascites presented to the hospital with the abdominal distention found to have 1. Recurrent ascites status post paracentesis 2. End-stage liver disease with liver cirrhosis 3. Pancytopenia secondary to liver disease 4. Hepatic encephalopathy 5. Acute kidney injury suspected secondary to vasomotor nephropathy 6. Metabolic acidosis secondary to acute kidney injury -IV albumin, gentle IV hydration for metabolic acidosis, lactulose, -repeat ammonia level. Plan discussed with: Patient My Orders Orders - JUMANA MANCILLA MD Procedure Category Date Status Time *Dr. [facility] CONS 02/01/25 Transmitted -[place] 16:21 * Wound Consult CONS 02/01/25 Transmitted * Dietary Consult CONS 02/02/25 Transmitted 06:48 * Radiologist Consult CONS 02/02/25 Transmitted 07:56 Paracentesis US 02/02/25 Resulted 08:26 Cleanse Wound With ARCHANA 02/02/25 In Process Mild Soap A 11:20 Notify Provider NOTICE 02/02/25 Transmitted Malnutrition 13:40 Nutritional NOURISH 02/02/25 Transmitted Supplements 13:40 Increase Calorie NOURISH 02/02/25 Transmitted Intake 13:40 Dietary NOTICE 02/02/25 Transmitted Recommendations 13:40 Date of Service: Feb 02, 2025 Billing Provider: JUMANA MANCILLA MD Common Visit Codes: NOT BILLABLE JUMANA MANCILLA MD Feb 02, 2025 16:14
[2025-02-02] MEDS: ALBUMIN 25% 50 ML IV SCH (17:31)
[2025-02-02 21:00] VITALS: BP 104/76; PULSE 82; RESP 17; TEMP 97.9; O2SAT 92
[2025-02-03] VITALS (8 sets, daily range): BP systolic 107–120; BP diastolic 44–72; PULSE 49–95; RESP 17–19; TEMP 97.4–98.7; O2SAT 92–100
[2025-02-03 08:39] LABS: Potassium 4.9 mmol/L (3.5-5.1); Sodium 143 mmol/L (136-145)
[2025-02-03 08:40] LABS: Anion Gap 9 (5-15)
[2025-02-03 08:41] LABS: Calcium 8.3 mg/dL (8.7-10.4); Carbon Dioxide 17 mmol/L (20-31); Chloride 117 mmol/L (98-107)
[2025-02-03 08:45] LABS: BUN/Creatinine Ratio 19.4 (10.0-20.0)
[2025-02-03 08:48] LABS: Blood Urea Nitrogen 38 mg/dL (9-23); Glucose 165 mg/dL (74-106)
[2025-02-03 13:07] LABS: Protein, Body Fluid 1.5 g/dL (.)
[2025-02-03] MEDS: cefTRIAXone 1GM/50ML D5W 50 ML IV ONE (17:53)
--- NOTE | 2025-02-03 18:03 | DVHPN2 ---
Subjective Overnight events noted. Patient is status post paracentesis, currently daughter at bedside was updated regarding current plan of care patient is more confused today. 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 Medications Current Medications Medications Dose Ordered Sig/Leti Route Start Time Stop Time Status Last Admin Dose Admin Acetaminophen/ Hydrocodone Bitart 1 tab Q4HP PRN PO 02/01/25 14:15 02/03/25 12:33 1 TAB Ondansetron HCl 4 mg Q4HP PRN IV 02/01/25 14:15 02/02/25 11:30 4 MG Docusate Sodium 100 mg BIDPRN PRN PO 02/01/25 14:15 Acetaminophen 650 mg Q6HP PRN PO 02/01/25 14:15 02/02/25 11:45 650 MG Morphine Sulfate 2 mg Q4HPRN PRN IV 02/01/25 14:15 Lactulose 30 ml Q4H PO 02/01/25 15:00 02/03/25 15:08 30 ML Midodrine 10 mg TID@0600,1200,1800 PO 02/02/25 12:00 02/03/25 11:13 10 MG Octreotide Acetate 100 mcg TID SUBCUT 02/02/25 14:00 02/03/25 15:12 100 MCG Ceftriaxone Sodium 50 ml @ 100 mls/hr DAILY@09 IV 02/04/25 09:00 Laboratory Results Laboratory Tests 02/01/25 17:20 02/03/25 05:25 Chemistry Test 02/03/25 05:25 Calcium Level 8.3 mg/dL (8.7-10.4) L Urinalysis Test 02/01/25 09:25 Urine Color Colorless (Yellow) Urine Clarity Ex.turbid (Clear) Urine pH 5.5 (5.0-9.0) Urine Specific [place] 1.013 (1.001-1.035) Urine Protein Trace (Negative) H Urine Ketones Negative (Negative) Urine Blood 2+ /uL (Negative) H Urine Nitrite Negative (Negative) Urine Bilirubin Negative (Negative) Urine Urobilinogen Normal mg/dL (Negative) Urine Leukocyte Esterase 3+ /uL (Negative) Urine RBC 24 /hpf (0 - 4) Urine WBC Clumps Present /hpf (None Seen) Urine Microscopic WBC 1317 /HPF (0-5) H Urine Squamous Epithelial Cells Few /hpf (<5) Urine Bacteria Few /hpf (None Seen) H Urine Yeast (Budding) Few /hpf (None Seen) Urine Glucose Normal mg/dL (Normal) Microbiology Microbiology Date/Time Source Procedure Growth Status 02/02/25 10:58 Ascities Fluid Gram Stain - Final Resulted 02/02/25 10:58 Ascities Fluid Body Fluid Culture - Preliminary Resulted Assessment/Plan Assessment/Plan 74-year-old female with a end-stage liver disease with recurrent ascites presented to the hospital with the abdominal distention found to have 1. Recurrent ascites status post paracentesis 2. End-stage liver disease with liver cirrhosis 3. Pancytopenia secondary to liver disease 4. Hepatic encephalopathy 5. Acute kidney injury suspected secondary to vasomotor nephropathy 6. Metabolic acidosis secondary to acute kidney injury 7. UTI -IV antibiotics, follow up urine culture - gentle IV hydration for metabolic acidosis, lactulose, -repeat ammonia level. Plan discussed with: Patient, Daughter My Orders Orders - JUMANA MANCILLA MD Procedure Category Date Status Time Ceftriaxone 1gm/50ml PHA 02/04/25 In Process D5w (Rocephin) 09:00 Urine Dip ED NURSING 02/03/25 Transmitted Urine Bacterial BERT 02/03/25 Logged Culture 17:26 Date of Service: Feb 03, 2025 Billing Provider: JUMANA MANCILLA MD Common Visit Codes: NOT BILLABLE JUMANA MANCILLA MD Feb 03, 2025 18:03
[2025-02-04] VITALS (7 sets, daily range): BP systolic 104–130; BP diastolic 57–71; PULSE 74–109; RESP 18–19; TEMP 97.5–98.1; O2SAT 99–100
[2025-02-04 06:57] LABS: Anion Gap 12 (5-15); Potassium 4.6 mmol/L (3.5-5.1); Sodium 143 mmol/L (136-145)
[2025-02-04 06:58] LABS: Calcium 9.1 mg/dL (8.7-10.4)
[2025-02-04 07:03] LABS: BUN/Creatinine Ratio 15.4 (10.0-20.0)
[2025-02-04 07:07] LABS: Blood Urea Nitrogen 35 mg/dL (9-23); Carbon Dioxide 15 mmol/L (20-31); Chloride 116 mmol/L (98-107); Glucose 108 mg/dL (74-106)
[2025-02-04] MEDS: cefTRIAXone 1GM/50ML D5W 50 ML IV SCH (09:24)
[2025-02-04] MEDS: SODIUM BICARB 50mEq/50ml Vial 150 ML in D5W 5% 1,000 ML IV ONE (15:02)
--- NOTE | 2025-02-04 15:27 | DVHPN2 ---
Subjective Overnight events noted. Ammonia level is pending, acute kidney injury is getting worse all the patient is more awake alert today. Reviewed: Care Plan Changes from previous H/P or p: No Changes Objective Vitals Vital Signs Date Time Temp Pulse Resp B/P (MAP) Pulse Ox O2 Delivery O2 Flow Rate FiO2 02/04/25 13:32 97.6 79 19 122/71 (88) 100 97.6 02/04/25 08:00 Room Air* 0 21 Intake/Output Intake and Output 02/04/25 07:00 Intake Total 700 ml Balance 700 ml Intake Oral 700 ml # Voids 4 # Bowel Movements 1 Exam HEENT pupils are reactive , cachexia Neck is supple CV is S1-S2 regular rate and rhythm Respiratory diminished BS on bases GI positive bowel sounds , ostial mg ascites Extremity no edema [employer] no motor deficit Medications Current Medications Medications Dose Ordered Sig/Leti Route Start Time Stop Time Status Last Admin Dose Admin Acetaminophen/ Hydrocodone Bitart 1 tab Q4HP PRN PO 02/01/25 14:15 02/03/25 12:33 1 TAB Ondansetron HCl 4 mg Q4HP PRN IV 02/01/25 14:15 02/02/25 11:30 4 MG Docusate Sodium 100 mg BIDPRN PRN PO 02/01/25 14:15 Acetaminophen 650 mg Q6HP PRN PO 02/01/25 14:15 02/02/25 11:45 650 MG Morphine Sulfate 2 mg Q4HPRN PRN IV 02/01/25 14:15 Lactulose 30 ml Q4H PO 02/01/25 15:00 02/04/25 11:38 30 ML Midodrine 10 mg TID@0600,1200,1800 PO 02/02/25 12:00 02/04/25 06:47 10 MG Octreotide Acetate 100 mcg TID SUBCUT 02/02/25 14:00 02/04/25 14:02 100 MCG Ceftriaxone Sodium 50 ml @ 100 mls/hr DAILY@09 IV 02/04/25 09:00 02/04/25 09:24 100 MLS/HR Laboratory Results Laboratory Tests 02/01/25 17:20 02/04/25 05:50 Chemistry Test 02/04/25 05:50 Calcium Level 9.1 mg/dL (8.7-10.4) Urinalysis Test 02/01/25 09:25 Urine Color Colorless (Yellow) Urine Clarity Ex.turbid (Clear) Urine pH 5.5 (5.0-9.0) Urine Specific [place] 1.013 (1.001-1.035) Urine Protein Trace (Negative) H Urine Ketones Negative (Negative) Urine Blood 2+ /uL (Negative) H Urine Nitrite Negative (Negative) Urine Bilirubin Negative (Negative) Urine Urobilinogen Normal mg/dL (Negative) Urine Leukocyte Esterase 3+ /uL (Negative) Urine RBC 24 /hpf (0 - 4) Urine WBC Clumps Present /hpf (None Seen) Urine Microscopic WBC 1317 /HPF (0-5) H Urine Squamous Epithelial Cells Few /hpf (<5) Urine Bacteria Few /hpf (None Seen) H Urine Yeast (Budding) Few /hpf (None Seen) Urine Glucose Normal mg/dL (Normal) Microbiology Microbiology Date/Time Source Procedure Growth Status 02/02/25 10:58 Ascities Fluid Gram Stain - Final Resulted 02/02/25 10:58 Ascities Fluid Body Fluid Culture - Preliminary Resulted Assessment/Plan Assessment/Plan 74-year-old female with a end-stage liver disease with recurrent ascites presented to the hospital with the abdominal distention found to have 1. Recurrent ascites status post paracentesis 2. End-stage liver disease with liver cirrhosis 3. Pancytopenia secondary to liver disease 4. Hepatic encephalopathy 5. Acute kidney injury suspected secondary to vasomotor nephropathy 6. Metabolic acidosis secondary to acute kidney injury 7. UTI -IV antibiotics, IV bicarb drip -titrate lactulose for3-4 soft bowel movements, -repeat ammonia level. -follow up with the Nephrology, physical therapy evaluation and treatment Plan discussed with: Patient My Orders Orders - JUMANA MANCILLA MD Procedure Category Date Status Time Ceftriaxone 1gm/50ml PHA 02/04/25 In Process D5w (Rocephin) 09:00 Urine Dip ED NURSING 02/03/25 Transmitted Urine Bacterial BERT 02/03/25 Logged Culture 17:26 Ammonia LAB 02/04/25 In Process 12:16 Basic Metabolic Panel LAB 02/05/25 Verified 06:00 Complete Blood Count LAB 02/05/25 Verified 06:00 Magnesium LAB 02/05/25 Verified 06:00 Ammonia LAB 02/05/25 Verified 04:00 Date of Service: Feb 04, 2025 Billing Provider: JUMANA MANCILLA MD Common Visit Codes: NOT BILLABLE JUMANA MANCILLA MD Feb 04, 2025 15:27
--- NOTE | 2025-02-04 15:49 | DVHPN2 ---
Progress Note Date Seen: Feb 04, 2025 Medical Necessity Reason Pt with a Central, PICC or Fol: No Subjective Patient reports: Other Objective vital signs Vital Sign Date Time Temp Pulse Resp B/P (MAP) Pulse Ox O2 Delivery O2 Flow Rate FiO2 02/04/25 13:32 97.6 79 19 122/71 (88) 100 97.6 02/04/25 08:00 Room Air* 0 21 Total Intake and Output 02/03/25 02/03/25 02/04/25 15:00 23:00 07:00 Intake Total 600 ml 100 ml Balance 600 ml 100 ml medications Current Medications Medications Dose Ordered Sig/Leti Route Start Time Stop Time Status Last Admin Dose Admin Acetaminophen/ Hydrocodone Bitart 1 tab Q4HP PRN PO 02/01/25 14:15 02/03/25 12:33 1 TAB Ondansetron HCl 4 mg Q4HP PRN IV 02/01/25 14:15 02/02/25 11:30 4 MG Docusate Sodium 100 mg BIDPRN PRN PO 02/01/25 14:15 Acetaminophen 650 mg Q6HP PRN PO 02/01/25 14:15 02/02/25 11:45 650 MG Morphine Sulfate 2 mg Q4HPRN PRN IV 02/01/25 14:15 Lactulose 30 ml Q4H PO 02/01/25 15:00 02/04/25 15:38 30 ML Midodrine 10 mg TID@0600,1200,1800 PO 02/02/25 12:00 02/04/25 06:47 10 MG Octreotide Acetate 100 mcg TID SUBCUT 02/02/25 14:00 02/04/25 14:02 100 MCG Ceftriaxone Sodium 50 ml @ 100 mls/hr DAILY@09 IV 02/04/25 09:00 02/04/25 09:24 100 MLS/HR Examination: NEURO:Abnormal laboratory and microbiology Laboratory Tests 02/04/25 05:50 02/01/25 17:20 Test 02/04/25 05:50 Range/Units Serum Glucose 108 H 74-106 mg/dL Microbiology Date/Time Source Procedure Growth Status 02/02/25 10:58 Ascities Fluid Gram Stain - Final Resulted 02/02/25 10:58 Ascities Fluid Body Fluid Culture - Preliminary Resulted Problem List/Assessment/Plan Problem List/Assessment/Plan Acute kidney injury on Chronic kidney disease 4 hemodynamic etiology/hepatorenal etiology Metabolic acidosis End-stage liver disease with cirrhosis ascites Pancytopenia Hepatic encephalopathy Recommendations Bicarb drip 1 L Paracentesis Low bicarb secondary to diarrhea from lactulose Midodrine and octreotide Urine workup not done due ordered because she is having multiple bowel movements mixed with urine as she is incontinent Plan discussed with: Patient My Orders My Orders Orders - BRENDA HANSON MD Procedure Category Date Status Time Sodium Bicarb PHA 02/04/25 In Process 50meq/50ml Vial 09:15 Urine Creatinine LAB 02/04/25 Logged 09:08 Urine Protein LAB 02/04/25 Logged 09:08 Urine Sodium LAB 02/04/25 Logged 09:08 Dietary Evaluation Review Recommendations by RD: Increase Calorie Intake Comments: 1. Continue liberalizing diet 2. Ensure enlive 240ml BID 3. Marcos 1 pk daily. MVI 1 tab daily, VitC 500mg BID, zinc sulfate 220mg daily x 10 days 4. Continue current plan of care Expected Outcomes/Goals: Pt will meet >75% estimated needs Fu 3-5 days Interpretation of weight loss: up to 7.5% in 3 months Body Fat Depletion (Severe): Mod to Severe Depletion Muscle Mass (Severe): Mod to Severe Depletion Protein Calorie Malnutrition: Severe Is there a minimum of two crit: Yes BRENDA HANSON MD Feb 04, 2025 15:49
[2025-02-04 17:33] LABS: Protein, Urine 96.6 mg/dL (1-14)
[2025-02-04 17:36] LABS: Creatinine, Urine 118.04 mg/dL (30.0-125.0)
[2025-02-05] VITALS (7 sets, daily range): BP systolic 106–129; BP diastolic 60–86; PULSE 74–109; RESP 15–18; TEMP 97.2–98.3; O2SAT 98–100
[2025-02-05 06:54] LABS: Basophils # (auto) 0.1 10 ^3/uL (0-0.2); Basophils % (auto) 1.4 % (0.0-2.0); Eosinophils # (auto) 0.1 10 ^3/uL (0-0.8); Eosinophils % (auto) 1.6 % (0.0-7.0); Hemoglobin 8.4 g/dL (12.2-16.2); Lymphocytes # (auto) 0.7 10 ^3/uL (0.4-5.4); Lymphocytes % (auto) 19.3 % (10.0-50.0); Mean Corpuscular Hemoglobin 35.8 pg (28.0-32.0); Mean Corpuscular Hgb Conc. 32.5 g/dL (32.0-36.0); Mean Corpuscular Volume 110.2 fL (80.0-100.0); Monocytes # (auto) 0.5 10 ^3/uL (0-1.3); Monocytes % (auto) 12.9 % (0.0-12.0); Neutrophils # (auto) 2.5 10 ^3/uL (1.6-8.6); Neutrophils % (auto) 64.8 % (37.0-80.0); Nucleated Red Blood Cells % 0.2 %; Platelet Count (auto) 70 10^3/uL (140-450); Red Blood Cells 2.36 10^6/uL (4.0-5.20); Red Cell Distribution Width 21.9 % (11.8-14.3); White Blood Cell 3.8 10^3/uL (4.4-10.8)
[2025-02-05 07:02] LABS: Anion Gap 10 (5-15); Potassium 4.2 mmol/L (3.5-5.1); Sodium 142 mmol/L (136-145)
[2025-02-05 07:05] LABS: Calcium 8.5 mg/dL (8.7-10.4); Carbon Dioxide 19 mmol/L (20-31); Chloride 113 mmol/L (98-107)
[2025-02-05 07:08] LABS: BUN/Creatinine Ratio 16.2 (10.0-20.0)
[2025-02-05 07:10] LABS: Blood Urea Nitrogen 36 mg/dL (9-23); Glucose 108 mg/dL (74-106)
[2025-02-05] MEDS ORDERED: SODI650T PO (15:03)
[2025-02-05] MEDS ORDERED: HYDR-4902 PO (15:03)
[2025-02-05] MEDS ORDERED: CEFD300C2 PO (15:08)
--- NOTE | 2025-02-05 15:10 | DVHDS2 ---
Discharge Summary Date of Admission Feb 01, 2025 at 14:13 Date of Discharge: Feb 05, 2025 Labs/Diagnostic Data: Laboratory Results Test 02/05/25 06:28 02/04/25 17:18 02/02/25 10:58 02/01/25 09:25 White Blood Count 3.8 10^3/uL (4.4-10.8) Red Blood Count 2.36 10^6/uL (4.0-5.20) Hemoglobin 8.4 g/dL (12.2-16.2) Hematocrit 26.0 % (36.0-46.0) Mean Corpuscular Volume 110.2 fL (80.0-100.0) Mean Corpuscular Hemoglobin 35.8 pg (28.0-32.0) Mean Corpuscular Hemoglobin Concent 32.5 g/dL (32.0-36.0) Red Cell Distribution Width 21.9 % (11.8-14.3) Platelet Count 70 10^3/uL (140-450) Mean Platelet Volume 8.2 fL (6.9-10.8) Neutrophils (%) (Auto) 64.8 % (37.0-80.0) Lymphocytes (%) (Auto) 19.3 % (10.0-50.0) Monocytes (%) (Auto) 12.9 % (0.0-12.0) Eosinophils (%) (Auto) 1.6 % (0.0-7.0) Basophils (%) (Auto) 1.4 % (0.0-2.0) Neutrophils # (Auto) 2.5 10 ^3/uL (1.6-8.6) Lymphocytes # (Auto) 0.7 10 ^3/uL (0.4-5.4) Monocytes # (Auto) 0.5 10 ^3/uL (0-1.3) Eosinophils # (Auto) 0.1 10 ^3/uL (0-0.8) Basophils # (Auto) 0.1 10 ^3/uL (0-0.2) Nucleated Red Blood Cells 0.2 % Sodium Level 142 mmol/L (136-145) Potassium Level 4.2 mmol/L (3.5-5.1) Chloride Level 113 mmol/L (98-107) Carbon Dioxide Level 19 mmol/L (20-31) Anion Gap 10 (5-15) Blood Urea Nitrogen 36 mg/dL (9-23) Creatinine 2.22 mg/dL (0.550-1.02) Glomerular Filtration Rate Calc 23 mL/min (>90) BUN/Creatinine Ratio 16.2 (10.0-20.0) Serum Glucose 108 mg/dL (74-106) Calcium Level 8.5 mg/dL (8.7-10.4) Magnesium Level 2.0 mg/dL (1.6-2.6) Ammonia 22 umol/L (11-32) Urine Creatinine 118.04 mg/dL (30.0-125.0) Urine Sodium 35 mmol/L (40-220) Urine Total Protein 96.6 mg/dL (1-14) Body Fluid Source Peritoneal fluid Body Fluid pH 7.0 Body Fluid WBC (Manual) 269 CUMM (0-200) Body Fluid RBC (Manual) 21 CUMM (0-2000) Body Fluid Mononuclear Cells 10 % Body Fluid Polymorphonuclear Cells 90 % (0-25) Body Fluid Glucose 78 mg/dL (.) Body Fluid Total Protein 1.5 g/dL (.) Body Fluid Lactate Dehydrogenase 86 IU/L (.) Urine Color Colorless (Yellow) Urine Clarity Ex.turbid (Clear) Urine pH 5.5 (5.0-9.0) Urine Specific [place] 1.013 (1.001-1.035) Urine Protein Trace (Negative) Urine Ketones Negative (Negative) Urine Blood 2+ /uL (Negative) Urine Nitrite Negative (Negative) Urine Bilirubin Negative (Negative) Urine Urobilinogen Normal mg/dL (Negative) Urine Leukocyte Esterase 3+ /uL (Negative) Urine RBC 24 /hpf (0 - 4) Urine WBC Clumps Present /hpf (None Seen) Urine Microscopic WBC 1317 /HPF (0-5) Urine Squamous Epithelial Cells Few /hpf (<5) Urine Bacteria Few /hpf (None Seen) Urine Yeast (Budding) Few /hpf (None Seen) Urine Glucose Normal mg/dL (Normal) Test 01/31/25 20:08 Prothrombin Time 11.7 sec (9.3-11.8) Prothrombin Time INR 1.12 (0.9-1.15) Activated Partial Thromboplast Time 37.8 SEC (24.5-34.5) Total Bilirubin 0.5 mg/dL (0.2-1.0) Aspartate Amino Transferase (AST) 30 U/L (13-40) Alanine Aminotransferase (ALT) 23 U/L (7-40) Alkaline Phosphatase 107 U/L (46-116) Total Protein 5.4 g/dL (5.7-8.2) Albumin 3.0 g/dL (3.2-4.8) Lipase 61 U/L (12-53) Other Laboratory Tests 02/05/25 06:28 Brief Hx & Hospital Course: 74-year-old female with a end-stage liver disease with recurrent ascites presented to the hospital with the abdominal distention found to have recurrent ascites status post paracentesis. But patient has a advanced end-stage liver disease with a recurrent ascites. Patient's pancytopenia is also secondary to underlying liver disease. Patient's hepatic encephalopathy resolved with the lactulose. Patient's acute kidney injury improved after bicarb drip. Patient's UTI was treated with the IV antibiotics which will be switched to p.o. antibiotics. Patient's daughter Nani requested some [place] for home for her as she was having crampy pain. Patient will be discharged under stable condition. [employer] returned case inspector has been called for outpatient follow up with the Radiology Department for scheduled ascitic tap. Condition at Discharge: Stable Final Diagnosis/Problems List 1. Massive ascites status post paracentesis 2. Advanced liver cirrhosis with recurrent ascites, 3. Metabolic acidosis secondary to acute kidney injury 4. Acute kidney injury suspected secondary to vasomotor nephropathy with underlying CKD, improved 5. Metabolic/hepatic encephalopathy, currently at baseline 6. UTI treated with the IV antibiotics will be switched to p.o. antibiotics Discharge Disposition: Home with [facility] Discharge Will this Physician continue t: No Discharge Instruct/Medications Diet: Cardiac 2g Na,low cholest Activity: See Comment Activity comment: No driving, no playing on heavy machinery, no signing legal documents while on narcotics. Follow Up/Referral: Follow up with the PCP in less than one week, follow up on the final urine culture sensitivity. Follow up with the GI if needed Follow up with the Radiology Department at [facility] or [facility] with the next 10 days, [employer] returned case inspector has been called who will arrange it and call the family. Medications: [place] and sodium bicarb as prescribed Discharge Statement: "Patient was advised to return to the ER or call 911 if any headaches, dizziness, shortness of breath, chest pain, abdominal pain, bleeding, fevers, or worsening of medical condition. Patient was counseled about treatment plan, medications, possible side effects, patientverbalized understanding. All questions were answered to the best of my ability. This discharge took greater then 30 minutes in planning, reviewing documentation, counseling the patient, and discussing with other team members." ASSESSMENT ASSESSMENT Assessment 1. Massive ascites status post paracentesis 2. Advanced liver cirrhosis with recurrent ascites, 3. Metabolic acidosis secondary to acute kidney injury 4. Acute kidney injury suspected secondary to vasomotor nephropathy with underlying CKD, improved 5. Metabolic/hepatic encephalopathy, currently at baseline Date of Service: Feb 05, 2025 Billing Provider: JUMANA MANCILLA MD Common Visit Codes: NOT BILLABLE JUMANA MANCILLA MD Feb 05, 2025 15:10
--- NOTE | 2025-02-05 16:04 | DVHPN2 ---
Progress Note Date Seen: Feb 05, 2025 Medical Necessity Reason Pt with a Central, PICC or Fol: No Subjective Review of Systems: Deferred Objective vital signs Vital Sign Date Time Temp Pulse Resp B/P (MAP) Pulse Ox O2 Delivery O2 Flow Rate FiO2 02/05/25 13:00 98.3 82 16 106/64 (78) 100 98.3 02/05/25 08:00 Room Air* 0 21 Total Intake and Output 02/04/25 02/04/25 02/05/25 15:00 23:00 07:00 Intake Total 50 ml 1532 ml 800 ml Output Total 200 ml Balance 50 ml 1332 ml 800 ml medications Current Medications Medications Dose Ordered Sig/Leti Route Start Time Stop Time Status Last Admin Dose Admin Acetaminophen/ Hydrocodone Bitart 1 tab Q4HP PRN PO 02/01/25 14:15 02/03/25 12:33 1 TAB Ondansetron HCl 4 mg Q4HP PRN IV 02/01/25 14:15 02/02/25 11:30 4 MG Docusate Sodium 100 mg BIDPRN PRN PO 02/01/25 14:15 Acetaminophen 650 mg Q6HP PRN PO 02/01/25 14:15 02/02/25 11:45 650 MG Morphine Sulfate 2 mg Q4HPRN PRN IV 02/01/25 14:15 Lactulose 30 ml Q4H PO 02/01/25 15:00 02/05/25 10:08 30 ML Midodrine 10 mg TID@0600,1200,1800 PO 02/02/25 12:00 02/05/25 11:48 10 MG Octreotide Acetate 100 mcg TID SUBCUT 02/02/25 14:00 02/04/25 14:02 100 MCG Ceftriaxone Sodium 50 ml @ 100 mls/hr DAILY@09 IV 02/04/25 09:00 02/05/25 10:07 100 MLS/HR laboratory and microbiology Laboratory Tests 02/05/25 06:28 Test 02/05/25 06:28 Range/Units Serum Glucose 108 H 74-106 mg/dL Microbiology Date/Time Source Procedure Growth Status 02/04/25 17:18 Voided Urine Urine Culture - Preliminary Resulted 02/02/25 10:58 Ascities Fluid Gram Stain - Final Resulted 02/02/25 10:58 Ascities Fluid Body Fluid Culture - Preliminary Resulted Problem List/Assessment/Plan Problem List/Assessment/Plan Acute kidney injury on Chronic kidney disease 4 hemodynamic etiology/hepatorenal etiology Metabolic acidosis End-stage liver disease with cirrhosis ascites Pancytopenia Hepatic encephalopathy Recommendations Bicarb drip 1 L Paracentesis Low bicarb secondary to diarrhea from lactulose Midodrine and octreotide Plan discussed with: Other Dietary Evaluation Review Recommendations by RD: Increase Calorie Intake Comments: 1. Continue liberalizing diet 2. Ensure enlive 240ml BID 3. Marcos 1 pk daily. MVI 1 tab daily, VitC 500mg BID, zinc sulfate 220mg daily x 10 days 4. Continue current plan of care Expected Outcomes/Goals: Pt will meet >75% estimated needs Fu 3-5 days Interpretation of weight loss: up to 7.5% in 3 months Body Fat Depletion (Severe): Mod to Severe Depletion Muscle Mass (Severe): Mod to Severe Depletion Protein Calorie Malnutrition: Severe Is there a minimum of two crit: Yes BRENDA HANSON MD Feb 05, 2025 16:04
== END 2025-02-05 21:25 | disposition home health service (06) | DRG 441 ==
LOC: EDSEX 19:40 → ER 19:40 → EDBD 19:40 → OVERFLOW 02-01 14:13 → WEST WING 02-01 15:49
PROVIDERS: ADMIT Internal Medicine; ATTEND Internal Medicine
PROC: 0W9G3ZZ Drainage of Peritoneal Cavity, Percutaneous Approach (ICD-10-PCS; principal; 2025-02-02)
DX: K76.82 Hepatic encephalopathy (principal); G93.41 Metabolic encephalopathy; N17.0 Acute kidney failure with tubular necrosis; R18.8 Other ascites; D61.818 Other pancytopenia; E87.20 Acidosis, unspecified; N39.0 Urinary tract infection, site not specified; Z68.1 Body mass index [BMI] 19.9 or less, adult; K74.60 Unspecified cirrhosis of liver; E87.5 Hyperkalemia; K72.10 Chronic hepatic failure without coma; N18.9 Chronic kidney disease, unspecified; R62.7 Adult failure to thrive; I12.9 Hypertensive chronic kidney disease with stage 1 through stage 4 chronic kidney disease, or unspecified chronic kidney disease; Z79.899 Other long term (current) drug therapy; Z79.2 Long term (current) use of antibiotics; Z82.0 Family history of epilepsy and other diseases of the nervous system; Z82.3 Family history of stroke
CPT/HCPCS: 36415; 49083; 71045; 74176; 76942; 80048; 80053; 81001; 82140; 82570; 83690; 83735; 83986; 84156; 84300; 85025; 85610; 85730; 87086; 87205; 89051; 93005; 97163; 99291; G0378; J2405

== ENCOUNTER 2025-05-17 14:25 | Inpatient (IN) | payer OTHER, MEDICAID ==
[~2025-05-17] VITALS: Ht 162.6 cm; Wt 43.4 kg
[~2025-05-17 14:25] MED LIST changes: +CEFD300C2 PO; +HYDR-4902 PO; +LACT10PA2 PO; -LACT10SO3 PO; -OMEP20TA PO; +SODI650T PO
--- NOTE | 2025-05-17 14:57 | ED.PDOC ---
Altered Mental Status HPI Comments This is a 75 year old female BIBA presenting to the ED with chief complaint of ALOC. EMS reports that the patient had an abdominal drain placed last , however, she has recently been having an uncontrolled fever with associated abdominal distention and ALOC. EMS relays that the patient only knows her name, but is not answering questions properly when asked. EMS notes patient's BG was at 208 and BP was 99 systolic until 400mL of fluids was given, going up to 111 systolic. Patient unable to provide any further history at this time. Chief Complaint: ALOC Time Seen by MD: 14:54 Primary Care Provider: ASHLEY Reviewed Notes: Nurses Notes, Auto Damage Adjuster Notes, Medications, Allergies Allergies: Coded Allergies: NO KNOWN ALLERGIES (Unverified , 10/14/24) Home Meds Active Scripts Cefdinir (Cefdinir) 300 Mg Cap, 1 CAP PO BID for 3 Days, #6 CAP Prov:JUMANA MANCILLA MD 02/05/25 Sodium Bicarbonate (Sodium Bicarbonate) 650 Mg Tab, 650 MG PO TID for 14 Days, #42 TAB Prov:JUMANA MANCILLA MD 02/05/25 Hydrocodone-Acetaminophen (Hydrocodone Bitartrate/AC 5-325 mg) 1 Tab Tab, 1 TAB PO Q8HPRN PRN, #14 TAB Prov:JUMANA MANCILLA MD 02/05/25 Sucralfate (CARAFATE) 1 Gm Tab, 1 GM PO ACHS, #120 TAB Prov:ABHISHEK FINE MD 01/20/25 Rifaximin (Xifaxan) 550 Mg Tab, 1 TAB PO BID, #28 TAB Prov:ABHISHEK FINE MD 01/20/25 Midodrine Hcl (Midodrine Hcl) 10 Mg Tab, 10 MG PO BID, #120 TAB Prov:ABHISHEK FINE MD 01/20/25 Reported Medications Furosemide (Furosemide) 20 Mg Tab, 1 TAB PO DAILY for 31 Days, #31 02/02/25 Omeprazole (Omeprazole Dr) 20 Mg Cap, 1 CAP PO DAILY for 90 Days, #90 02/02/25 Spironolactone (Spironolactone) 25 Mg Tab, 1 TAB PO DAILY for 31 Days, #31 02/01/25 Lactulose (Lactulose) 10 Gm Ceasar, 15 GM PO TID, PACK 02/01/25 Ferrous Sulfate (Ferosul) 325 Mg Tab, 325 MG PO DAILY, TAB 12/13/24 Information Source: Emergency Med Personnel Mode of Arrival: EMS Severity: Severe, Unresponsive Timing: Hours Duration: Since onset Prehospital treatment: None Quality: Decreased Alertness, Change in Behavior, Confusion Recent: Fever History of: Other (ESRD) Past Medical History PAST MEDICAL HISTORY: ESRD, HTN, Liver Surgical History: Denies all surgeries WOODS LABORER History: Denies all WOODS LABORER Hx Family History Family History: Reviewed,noncontributory to illness Social History Smoker: Non-Smoker Alcohol: Denies ETOH Use Drugs: Denies Drug Use Lives In: Home Constitutional: reports: fever; denies: chills, diaphoresis, fatigue, malaise, sweats, weakness, others EENTM: denies: blurred vision, double vision, ear bleeding, ear discharge, ear drainage, ear pain, ear ringing, eye pain, eye redness, hearing loss, mouth pain, mouth swelling, nasal discharge, nose bleeding, nose congestion, nose pain, photophobia, tearing, throat pain, throat swelling, voice changes, others Respiratory: denies: cough, hemoptysis, orthopnea, SOB at rest, shortness of breath, SOB with excertion, stridor, wheezing, others Cardiovascular: denies: chest pain, dizzy spells, diaphoresis, Dyspnea on exertion, edema, irregular heart beat, left arm pain, lightheadedness, palpitations, PND, syncope, others Gastrointestinal: reports: abdomen distended; denies: abdominal pain, blood streaked bowels, constipated, diarrhea, dysphagia, difficulty swallowing, hematemesis, melena, nausea, poor appetite, poor fluid intake, rectal bleeding, rectal pain, vomiting, others Genitourinary: denies: abnormal vagina bleeding, burning, dyspareunia, dysuria, flank pain, frequency, hematuria, incontinence, pain, , vagina discharge, urgency, others Neurological: denies: dizziness, fainting, headache, left sided numbness, left sided weakness, numbness, paresthesia, pre-existing deficit, right sided numbness, right sided weakness, seizure, speech problems, tingling, tremors, weakness, others Musculoskeletal: denies: back pain, gout, joint pain, joint swelling, muscle pain, muscle stiffness, neck pain, others Integumetry: denies: bruises, change in color, change in hair/nails, dryness, laceration, lesions, lumps, rash, wounds, others Allergic/Immunocompromised: denies: Difficulty Healing, Frequent Infections, Hives, Itching, others Hematologic/Lymphatic: denies: anemia, blood clots, easy bleeding, easy bruising, swollen glands, others Endocrine: denies: excessive hunger, excessive sweating, excessive thirst, excessive urination, flushing, intolerance to cold, intolerance to heat, unexplained weight gain, unexplained weight loss, others Psychiatric: denies: anxiety, bipolar disorder, depression, hopeless, panic disorder, schizophrenia, sleepless, suicidal, others Unable to Obtain due to: Altered Mental Status All Other Systems: Reviewed and Negative Physical Exam General Appearance: No Apparent Distress, Normal, Other (Pleasantly confused) HEENT: Normal ENT Inspection, Pharynx Normal, TMs Normal Neck: Full Range of Motion, Non-Tender, Normal, Normal Inspection Respiratory: Chest Non-Tender, Lungs Clear, No Accessory Muscle Use, No Respiratory Distress, Normal Breath Sounds Cardiovascular: No Edema, No JVD, No Murmur, No Gallop, Normal Peripheral Pulses, Regular Rate/Rhythm Breast Exam: Deferred Gastrointestinal: No Organomegaly, No Pulsatile Mass, Normal Bowel Sounds, Other (Abdominal distention with drain tube in place) Genitalia: Deferred Pelvic: Deferred Rectal: Deferred Extremities: No calf tenderness, Normal capillary refill, Normal inspection, Normal range of motion, Non-tender, No pedal edema Musculoskeletal : Apperance: Normal Neurologic: Alert, construction specialist II-XII nml as Tested, No Motor Deficits, Normal Affect, Normal Mood, No Sensory Deficits Cerebellar Function: Normal Reflexes: Normal Skin: Dry, Normal Color, Warm Lymphatic: No Adenopathy Was a procedure done? Was a procedure done?: Yes Sedation Sedation?: No Other Procedure Procedure Paracentesis Indication Ascites Anesthetic None Prep Chlorhexidine Success Patient tolerated the procedure without complications Informed consent obtained: Yes Risks, benefits, and alternati: Yes Notes Utilized patient's abdominal drain to remove 2 L the fluid from the out on. Fluid was straw-colored not hazy in appearance. We will Differential Diagnosis (ALOC) Differential Diagnosis: Dehydration, DKA, Encephalopathy, Sepsis X-Ray, Labs, Meds, VS Vital Signs Date Time Temp Pulse Resp B/P (MAP) Pulse Ox O2 Delivery O2 Flow Rate FiO2 05/17/25 17:00 80 16 97/49 (65) 96 05/17/25 16:00 92 05/17/25 15:20 98.5 92 16 134/63 (86) 100 98.5 05/17/25 14:28 96 05/17/25 14:28 97.4 94 20 111/69 (83) 98 97.4 Lab Test 05/17/25 17:50 05/17/25 16:35 05/17/25 16:03 Range/Units Lactic Acid Level Pending 4.3 *H 0.4-2.0 mmol/L Ammonia Pending Troponin I High Sensitivity Pending 153 *H </=34 ng/L POC Glucose 160 H 70-106 mg/dl White Blood Count 9.5 4.4-10.8 10^3/uL Red Blood Count 3.89 L 4.0-5.20 10^6/uL Hemoglobin 12.2 12.2-16.2 g/dL Hematocrit 37.4 36.0-46.0 % Mean Corpuscular Volume 96.0 80.0-100.0 fL Mean Corpuscular Hemoglobin 31.3 28.0-32.0 pg Mean Corpuscular Hemoglobin Concent 32.6 32.0-36.0 g/dL Red Cell Distribution Width 13.4 11.8-14.3 % Platelet Count 124 L 140-450 10^3/uL Mean Platelet Volume 8.2 6.9-10.8 fL Neutrophils (%) (Auto) 94.0 H 37.0-80.0 % Lymphocytes (%) (Auto) 3.0 L 10.0-50.0 % Monocytes (%) (Auto) 2.7 0.0-12.0 % Eosinophils (%) (Auto) 0.0 0.0-7.0 % Basophils (%) (Auto) 0.3 0.0-2.0 % Neutrophils # (Auto) 9.0 H 1.6-8.6 10 ^3/uL Lymphocytes # (Auto) 0.3 L 0.4-5.4 10 ^3/uL Monocytes # (Auto) 0.3 0-1.3 10 ^3/uL Eosinophils # (Auto) 0 0-0.8 10 ^3/uL Basophils # (Auto) 0 0-0.2 10 ^3/uL Nucleated Red Blood Cells 0.0 % Prothrombin Time 12.5 H 9.3-11.8 sec Prothrombin Time INR 1.20 H 0.9-1.15 Activated Partial Thromboplast Time 38.2 H 24.5-34.5 SEC Sodium Level 135 L 136-145 mmol/L Potassium Level 3.7 3.5-5.1 mmol/L Chloride Level 102 98-107 mmol/L Carbon Dioxide Level 21 20-31 mmol/L Anion Gap 12 5-15 Blood Urea Nitrogen 62 H 9-23 mg/dL Creatinine 2.60 H 0.550-1.02 mg/dL Glomerular Filtration Rate Calc 19 >90 mL/min BUN/Creatinine Ratio 23.8 H 10.0-20.0 Serum Glucose 161 H 74-106 mg/dL Calcium Level 7.8 L 8.7-10.4 mg/dL Total Bilirubin 0.5 0.2-1.0 mg/dL Aspartate Amino Transferase (AST) 28 13-40 U/L Alanine Aminotransferase (ALT) 16 7-40 U/L Alkaline Phosphatase 88 46-116 U/L Total Protein 5.0 L 5.7-8.2 g/dL Albumin 2.3 L 3.2-4.8 g/dL Current Medications Medications (Trade) Dose Ordered Sig/Leti Route Start Time Stop Time Status Last Admin Cefepime HCl 50 ml @ 12.5 mls/hr ONCE ONCE IV 05/17/25 14:45 05/17/25 18:44 05/17/25 17:30 Vancomycin HCl 200 ml @ 200 mls/hr ONCE ONCE IV 05/17/25 14:45 05/17/25 15:44 DC 05/17/25 16:15 Time of 1ST Reevaluation: 15:54 Reevaluation 1ST: Unchanged Patient Education/Counseling: Diagnosis, Treatment Family Education/Counseling: No Family Present SEPSIS Sepsis Screen Physician Orders Electrocardigram (05/17/25 14:33) Blood Culture (05/17/25 14:37) Troponin-I Hs (05/17/25 15:37) Troponin-I Hs (05/17/25 17:37) Cefepime 2gm/50ml Ns (Maxipime 2gm/50ml) (05/17/25 14:45) Ammonia (05/17/25 17:10) Albumin 25% (Albutein) (05/17/25 18:15) Vital Signs Date Time Temp Pulse Resp B/P (MAP) Pulse Ox O2 Delivery O2 Flow Rate FiO2 05/17/25 17:00 80 16 97/49 (65) 96 05/17/25 16:00 92 05/17/25 15:20 98.5 92 16 134/63 (86) 100 98.5 05/17/25 14:28 96 05/17/25 14:28 97.4 94 20 111/69 (83) 98 97.4 Laboratory Tests Test 05/17/25 16:03 05/17/25 17:50 Lactic Acid Level 4.3 mmol/L (0.4-2.0) *H Pending White Blood Count 9.5 10^3/uL (4.4-10.8) Medications Medications Dose Ordered Sig/Leti Route Start Time Stop Time Status Last Admin Dose Admin Cefepime HCl 50 ml @ 12.5 mls/hr ONCE ONCE IV 05/17/25 14:45 05/17/25 18:44 05/17/25 17:30 Vancomycin HCl 200 ml @ 200 mls/hr ONCE ONCE IV 05/17/25 14:45 05/17/25 15:44 DC 05/17/25 16:15 Departure 1 Departure Time of Disposition: 18:20 (Patient presenting with the acute altered mental status likely secondary to sepsis. Patient has a was tense and I drained 2 L the patient's blood. We will send patient is followed for ascites studies. Empirically cover patient with antibiotics. Did not give the patient a fall volume bolus because patient appears clinically volume overloaded. We will admit patient for further workup) Impression: Primary Impression: Acute metabolic encephalopathy Additional Impressions: Sepsis Qualified Codes: A41.9 - Sepsis, unspecified organism; R65.21 - Severe sepsis with septic shock; G93.41 - Metabolic encephalopathy Ascites Qualified Codes: R18.8 - Other ascites Disposition: ADMITTED INPATIENT Admit to: Med Surg Condition: Guarded Critical Care Note Critical Care Time?: Yes Critical care comment: Concern for sepsis Authorized and Performed by: Bobby Otero MD Total critical care time: Approximately 48 minutes Due to a high probability of clinically significant, life threatening deterioration, the patient required my highest level of preparedness to intervene emergently and I personally spent this critical care time directly and personally managing the patient. This critical care time included obtaining a history; examining the patient; pulse oximetry; ordering and review of studies; arranging urgent treatment with development of a management plan; evaluation of patient's response to treatment; frequent reassessment; and, discussions with other providers. This critical care time was performed to assess and manage the high probability of imminent, life-threatening deterioration that could result in multi-organ failure. It was exclusive of separately billable procedures and treating other patients and teaching time. Please see my other sections and the rest of the note for further information on patient assessment and treatment. Stability Stability form required: No Heart Score Heart Score: Heart Score Response (Comments) Value History N/A 0 EKG N/A 0 Age N/A 0 Risk Factors N/A 0 Troponin N/A 0 Total 0 I personally scribed for BOBBY OTERO MD ([email or web address]) on 05/17/25 at 14:57. Electronically submitted by Ari Michael ([email or web address]). BOBBY OTERO MD May 17, 2025 14:57
[2025-05-17] MEDS: VANCOMYCIN 1GM/200ML PM 200 ML IV ONE (16:15)
[2025-05-17] MEDS: SODIUM CHLORIDE 0.9% 1,000 ML IV ONE (16:21)
[2025-05-17 16:40] LABS: Hematocrit 37.4 % (36.0-46.0); Hemoglobin 12.2 g/dL (12.2-16.2); Mean Corpuscular Hemoglobin 31.3 pg (28.0-32.0); Mean Corpuscular Volume 96.0 fL (80.0-100.0); Nucleated Red Blood Cells % 0.0 %
[2025-05-17 16:53] LABS: Alanine Aminotransferase 16 U/L (7-40); Alkaline Phosphatase 88 U/L (46-116); Anion Gap 12 (5-15); BUN/Creatinine Ratio 23.8 (10.0-20.0); Bilirubin, Total 0.5 mg/dL (0.2-1.0); Blood Urea Nitrogen 62 mg/dL (9-23); Calcium 7.8 mg/dL (8.7-10.4); Carbon Dioxide 21 mmol/L (20-31); Chloride 102 mmol/L (98-107); Glucose 161 mg/dL (74-106); Potassium 3.7 mmol/L (3.5-5.1); Sodium 135 mmol/L (136-145)
[2025-05-17 16:54] LABS: Albumin 2.3 g/dL (3.2-4.8); Total Protein 5.0 g/dL (5.7-8.2)
[2025-05-17 16:55] LABS: INR 1.2 (0.9-1.15); Partial Thromboplastin Time 38.2 SEC (24.5-34.5); Prothrombin Time 12.5 sec (9.3-11.8)
[2025-05-17 16:59] LABS: Lactic Acid w/Reflex 4.3 mmol/L (0.4-2.0)
[2025-05-17] MEDS: CEFEPIME 2GM/50ML NS 50 ML IV ONE (17:30)
[2025-05-17 17:39] VITALS: PULSE 80; RESP 16; O2SAT 100
[2025-05-17] MEDS: ALBUMIN 25% 100 ML IV ONE (18:18)
[2025-05-17] MEDS: SODIUM CHLORIDE 0.9% 500 ML IV ONE (19:31)
--- NOTE | 2025-05-17 21:36 | DVHHP2 ---
History of Present Illness History of Present Illness Patient is 75 years old female with past medical history of hypertension, cirrhosis of liver, CKD, uterine prolapse was brought in due to altered mental status. As per daughter Nani [phone] patient was noticed to be have confusion today morning and her blood pressure was difficulty measure at home. Daughter also reported patient had fever at home but could not mention the exact temperature. Daughter also reported patient had port placed in her abdomen for paracentesis on last 05/11/2025 at [facility] [place] and paracentesis was done. Due to patient's confusion and unable to measure blood pressure EMS was called and patient was brought to the ER. On arrival of EMS At the scene patient's blood sugar was 208 and blood pressure was systolic 99, 400 mL of IV fluid was given and systolic blood pressure went up to 111. At the ER paracentesis was done and 2 L fluid was removed. Patient with a history of recurrent paracentesis due to malignant ascites due to cirrhosis of liver. Initial lab workup revealed thrombocytopenia with platelet 124, serum creatinine 2.60, BUN 62, GFR 19, lactic acid 4.3, trop I 153> 136> 125, ammonia 16>67, INR 1.38. Doppler Study of the left upper extremity is negative for DVT. Past Medical History hypertension, cirrhosis of liver, CKD, uterine prolapse Past Surgical History None Family History Hypertension, aneurysm Past Social History Denies smoking/alcoholism/drug abuse, lives with Review of Systems Review of Systems Allergy- NKDA Patient was seen today at the bedside. Cardiovascular- deny acute chest pain or shortness of breath or cough or palpitation Respiratory denies cough or short of breath or wheezing Gastrointestinal- denies any rectal bleeding, nausea or vomiting Musculoskeletal-denies acute joint swelling or tenderness or redness Neurological- denies acute dysarthria, dysphagia, change in vision Psychiatry- denies depression or SI or HI Skin- ecchymosis on bilateral upper extremity, bilateral upper extremity swollen Allergies: Coded Allergies: NO KNOWN ALLERGIES (Unverified , 10/14/24) Medications Current Medications Medications Dose Ordered Sig/Leti Route Start Time Stop Time Status Last Admin Dose Admin Norepinephrine Bitartrate 250 ml @ 3.75 mls/hr Q24H IV 05/17/25 20:15 Sodium Chloride 10 ml Q8HR IV 05/17/25 22:00 UNV Exam Vital Signs Vital Signs Date Time Temp Pulse Resp B/P (MAP) Pulse Ox O2 Delivery O2 Flow Rate FiO2 05/17/25 18:00 68 13 79/46 (57) 98 05/17/25 17:39 Nasal Cannula* 2 28 05/17/25 15:20 98.5 98.5 Exam General examination- awake, alert, conversant HEENT- PEERLA, no acute nasal discharge Cardiovascular- S1-S2 audible, rate and rhythm regular, no murmur Respiratory- CTAB, no wheeze or rhonchi Gastrointestinal-++ abdomen distended, Musculoskeletal-no acute joint swelling or tenderness or redness extremity- left upper extremity swollen, ecchymosis on bilateral upper extremity Neurological- cranial nerves intact, no acute dysarthria or dysphagia Psychiatry- denies depression or SI or HI Skin- no acute rash or purpura Labs/Xrays Labs Test 05/17/25 20:30 05/17/25 17:50 05/17/25 16:35 05/17/25 16:03 Range/Units Troponin I High Sensitivity 125 *H </=34 ng/L Lactic Acid Level 3.2 *H 0.4-2.0 mmol/L Ammonia 18 11-32 umol/L POC Glucose 160 H 70-106 mg/dl White Blood Count 9.5 4.4-10.8 10^3/uL Red Blood Count 3.89 L 4.0-5.20 10^6/uL Hemoglobin 12.2 12.2-16.2 g/dL Hematocrit 37.4 36.0-46.0 % Mean Corpuscular Volume 96.0 80.0-100.0 fL Mean Corpuscular Hemoglobin 31.3 28.0-32.0 pg Mean Corpuscular Hemoglobin Concent 32.6 32.0-36.0 g/dL Red Cell Distribution Width 13.4 11.8-14.3 % Platelet Count 124 L 140-450 10^3/uL Mean Platelet Volume 8.2 6.9-10.8 fL Neutrophils (%) (Auto) 94.0 H 37.0-80.0 % Lymphocytes (%) (Auto) 3.0 L 10.0-50.0 % Monocytes (%) (Auto) 2.7 0.0-12.0 % Eosinophils (%) (Auto) 0.0 0.0-7.0 % Basophils (%) (Auto) 0.3 0.0-2.0 % Neutrophils # (Auto) 9.0 H 1.6-8.6 10 ^3/uL Lymphocytes # (Auto) 0.3 L 0.4-5.4 10 ^3/uL Monocytes # (Auto) 0.3 0-1.3 10 ^3/uL Eosinophils # (Auto) 0 0-0.8 10 ^3/uL Basophils # (Auto) 0 0-0.2 10 ^3/uL Nucleated Red Blood Cells 0.0 % Prothrombin Time 12.5 H 9.3-11.8 sec Prothrombin Time INR 1.20 H 0.9-1.15 Activated Partial Thromboplast Time 38.2 H 24.5-34.5 SEC Sodium Level 135 L 136-145 mmol/L Potassium Level 3.7 3.5-5.1 mmol/L Chloride Level 102 98-107 mmol/L Carbon Dioxide Level 21 20-31 mmol/L Anion Gap 12 5-15 Blood Urea Nitrogen 62 H 9-23 mg/dL Creatinine 2.60 H 0.550-1.02 mg/dL Glomerular Filtration Rate Calc 19 >90 mL/min BUN/Creatinine Ratio 23.8 H 10.0-20.0 Serum Glucose 161 H 74-106 mg/dL Calcium Level 7.8 L 8.7-10.4 mg/dL Total Bilirubin 0.5 0.2-1.0 mg/dL Aspartate Amino Transferase (AST) 28 13-40 U/L Alanine Aminotransferase (ALT) 16 7-40 U/L Alkaline Phosphatase 88 46-116 U/L Total Protein 5.0 L 5.7-8.2 g/dL Albumin 2.3 L 3.2-4.8 g/dL SEPSIS Sepsis Screen Date sepsis recognized/suspect: May 17, 2025 Time Sepsis recognized/suspect: 1427 Recent Procedure: Yes On Antibiotic Therapy: No Respiratory Rate >20: No Heart Rate >90: Yes Temp<36 C (96.8 F) or >38.3 C: No SBP <90 or MAP <65 mmHG: No New Acute Mental Status Change: No Is the patient on CPAP, BIPAP,: No Physician Orders Electrocardigram (05/17/25 14:33) Blood Culture (05/17/25 14:37) Norepinephrine 8 Mg/250ml Kit (Levophed) (05/17/25 20:15) Admit (05/17/25 21:32) Code Status (05/17/25 21:32) Sodium Chloride Lock (Saline Lock Ns) (05/17/25 22:00) Complete Blood Count (05/18/25 04:00) Comprehensive Metabolic Panel (05/18/25 04:00) Notify Of Changes From Base (05/17/25 21:32) Business Analytics Faculty Member For 24 Hours (05/17/25 21:32) Vital Signs Date Time Temp Pulse Resp B/P (MAP) Pulse Ox O2 Delivery O2 Flow Rate FiO2 05/17/25 18:00 68 13 79/46 (57) 98 05/17/25 17:39 80 16 100 Nasal Cannula* 2 28 05/17/25 17:00 80 16 97/49 (65) 96 05/17/25 16:00 92 05/17/25 15:20 98.5 92 16 134/63 (86) 100 98.5 05/17/25 14:28 96 05/17/25 14:28 97.4 94 20 111/69 (83) 98 97.4 Laboratory Tests Test 05/17/25 16:03 05/17/25 17:50 Lactic Acid Level 4.3 mmol/L (0.4-2.0) *H 3.2 mmol/L (0.4-2.0) *H White Blood Count 9.5 10^3/uL (4.4-10.8) Medications Medications Dose Ordered Sig/Leti Route Start Time Stop Time Status Last Admin Dose Admin Albumin Human 100 ml @ 100 mls/hr ONCE ONCE IV 05/17/25 18:15 05/17/25 19:14 DC 05/17/25 18:18 100 MLS/HR Cefepime HCl 50 ml @ 12.5 mls/hr ONCE ONCE IV 05/17/25 14:45 05/17/25 18:44 DC 05/17/25 17:30 12.5 MLS/HR Sodium Chloride 500 ml @ 500 mls/hr Q1H ONCE IV 05/17/25 19:30 05/17/25 20:29 DC 05/17/25 19:31 500 MLS/HR Vancomycin HCl 200 ml @ 200 mls/hr ONCE ONCE IV 05/17/25 14:45 05/17/25 15:44 DC 05/17/25 16:15 200 MLS/HR Assessment/Plan Assessment/Plan Assessment and plan # hypovolemic shock/septic shock -patient on Levophed and dopamine -ordered blood culture, urine culture -continue cefepime and vancomycin prescribed -maintain intake output chart # Spontaneous bacterial peritonitis # metabolic encephalopathy # malignant ascites due to cirrhosis of liver -status post paracentesis of 2 L fluid at ER -continue cefepime and vancomycin prescribed -continue rifaximin 550 mg p.o. b.i.d. -pending blood culture, urine culture -lactulose 30 mL p.o. b.i.d. -avoid dehydration and hepatotoxic drugs # malignant ascites -status post paracentesis-2 L paracentesis was done at ER # GER on CKD likely due to VMN -avoid dehydration and nephrotoxic drugs # Bradycardia -patient's heart rate at times went down to asa low as 34 -EKG sinus rhythm -ordered cardiology consult -pending echo 2D # protein calorie malnutrition -pending dietary consult # lactic acidosis -continue current conservative management # non STEMI likely type 2 likely due to demand led ischemia -continue current conservative management # history of hypertension - antihypertensive medication on hold Goals of care, Code status full code ; discussed with >15 minutes PUD prophylaxis: Pantoprazole DVT prophylaxis: SCD Plan discussed with Dr. Moon , nursing staff, Total time spent on patient evaluation, chart review, assessment and plan, discussion discussion >35 minutes Plan discussed with: Patient, Daughter, Other (RN) My Orders Orders - JOVON GIBBS RESIDENT Procedure Category Date Status Time Admit ADMIT 05/17/25 Transmitted 21:32 Code Status CODE 05/17/25 Transmitted 21:32 Sodium Chloride Lock PHA 05/17/25 Logged (Saline Lock Ns) 22:00 Complete Blood Count LAB 05/18/25 Verified 04:00 Comprehensive LAB 05/18/25 Verified Metabolic Panel 04:00 Notify Of Changes [facility] 05/17/25 In Process From Base 21:32 Business Analytics Faculty Member For [facility] 05/17/25 In Process 24 Hours 21:32 Date of Service: May 17, 2025 Billing Provider: MYA MOON MD Common Visit Codes: 07385-[id number] INP/OBS CARE (HIGH) Secondary Visit Codes: 32122-[id number] CARE PLAN 30 MINUTES JOVON GIBBS RESIDENT May 17, 2025 21:36
[2025-05-17] MEDS ORDERED: LACTULOSE 20Gm/30ML SOLN PO ONE (21:45)
--- NOTE | 2025-05-17 21:52 | DVHNC2 ---
Central Line Recorder of insertion practice: Lining Printer Occupation of health information systems technician: Other medical staff (resident physician) Indication: Hypotension, Volume resuscitation, Inability to obtain IV Room prepared for procedure: Yes Lining Printer performed hand hygien: Yes Maximal sterile barrier precau: Mask/Eye shield, Sterile gown, Cap, Sterlie gloves, Large sterlie drape Skin Preparation: Providine iodine Skin preparation completely dr: Yes Insertion site: Right, Internal jugular Central line catheter type: [id number] dialysis Number of lumens: 3 Post Assessment: Chest X-Ray, Proper placement Informed consent obtained: Yes Date of Service: May 17, 2025 Billing Provider: CHINO CAN MD Common Visit Codes: PROCEDURE ONLY LITO MAYA RESIDENT May 17, 2025 21:52
[2025-05-17] MEDS: SODIUM CHLOR 0.9% PF (SALINE LOCK) 10ML VIAL/SYR IV SCH (22:02)
[2025-05-17] MEDS: NOREPINEPHRINE 8 MG/250ML KIT 250 ML IV SCH (22:02)
[2025-05-17 22:05] LABS: INR 1.38 (0.9-1.15); Partial Thromboplastin Time 50.6 SEC (24.5-34.5); Prothrombin Time 14.2 sec (9.3-11.8)
--- NOTE | 2025-05-17 22:15 | DVH ---
CHEST RADIOGRAPH Indication: CENTRAL LINEPLACEMENT Technique: Single frontal view of the chest was obtained Comparison: XY CHEST PORTABLE on DOS: 01/31/25, XY CHEST XRAY 1 VIEW on DOS: 12/19/24, XY CHEST XRAY 1 V IEW on DOS: 12/17/24 FINDINGS: Lines and Tubes: There is a central line in place in the right internal jugular vein with the at the cavoatrial junction. Lungs: No focal consolidation. Pleura: No effusion. No pneumothorax. Cardiomediastinal contours: Unremarkable Bones: No acute osseous abnormality. IMPRESSION: 1. Central line in place from the right with the tip at the cavoatrial junction or distal superior ve na cava.
[2025-05-17] MEDS: MIDODRINE HCL 10 MG TAB PO SCH (22:25)
[2025-05-17] MEDS: PANTOPRAZOLE 40 MG/10 ML VIAL INJ IV ONE (22:25)
[2025-05-17] MEDS: LACTULOSE 20Gm/30ML SOLN PO SCH (22:28)
[2025-05-17] MEDS: cefTRIAXone 2GM/50ML D5W 50 ML IV ONE (23:54)
[2025-05-18] VITALS (23 sets, daily range): BP systolic 90–135; BP diastolic 59–88; PULSE 47–87; RESP 11–21; TEMP 97.6–97.8; O2SAT 97–100
--- NOTE | 2025-05-18 02:02 | DVH ---
LEFT UPPER EXTREMITY VENOUS ULTRASOUND CLINICAL HISTORY: Pain. Rule out DVT. COMPARISON: None TECHNIQUE: Grayscale ultrasound with compression, color Doppler, and spectral Doppler of the deep juana ous system of the left upper extremity from the base of the neck through the elbow performed. FINDINGS: Left internal jugular vein: Negative Left subclavian vein: Negative Left axillary vein: Negative Left brachial veins: Negative Left basilic vein: Negative Left cephalic vein: Negative IMPRESSION: No sonographic evidence of deep venous thrombosis in the left upper extremity at this time. HS:Y
[2025-05-18] MEDS: SODIUM CHLORIDE 0.9% 250 ML IV ONE (02:52)
[2025-05-18] MEDS: ALBUMIN 25% 100 ML IV ONE (04:49)
[2025-05-18] MEDS: DOPamine 1600MCG/ML D5W 250 ML IV SCH (05:07)
[2025-05-18] MEDS ORDERED: VANCOMYCIN PER PHARMACY 0 MG IV SCH (05:15)
[2025-05-18 05:26] LABS: Hematocrit 30.9 % (36.0-46.0); Hemoglobin 9.9 g/dL (12.2-16.2); Mean Corpuscular Hemoglobin 31.2 pg (28.0-32.0); Mean Corpuscular Volume 97.7 fL (80.0-100.0); Nucleated Red Blood Cells % 0.1 %
[2025-05-18 05:42] LABS: Alanine Aminotransferase 11 U/L (7-40); Alkaline Phosphatase 59 U/L (46-116); Anion Gap 11 (5-15); BUN/Creatinine Ratio 24.8 (10.0-20.0); Sodium 137 mmol/L (136-145)
[2025-05-18 05:43] LABS: Bilirubin, Total 0.3 mg/dL (0.2-1.0)
[2025-05-18 05:47] LABS: Albumin 2.1 g/dL (3.2-4.8); Blood Urea Nitrogen 55 mg/dL (9-23); Calcium 7.7 mg/dL (8.7-10.4); Carbon Dioxide 19 mmol/L (20-31); Chloride 107 mmol/L (98-107); Glucose 147 mg/dL (74-106); Potassium 3.3 mmol/L (3.5-5.1); Total Protein 4.1 g/dL (5.7-8.2)
[2025-05-18 06:08] LABS: Lipase 22 U/L (12-53)
[2025-05-18] MEDS: FUROSEMIDE 40 MG TAB PO SCH (06:17)
[2025-05-18 06:26] LABS: INR 1.34 (0.9-1.15); Partial Thromboplastin Time 51.3 SEC (24.5-34.5); Prothrombin Time 13.8 sec (9.3-11.8)
[2025-05-18] MEDS ORDERED: POTASSIUM EFFERVESENT TAB 25 MEQ GT ONE (06:30)
[2025-05-18 06:35] LABS: Iron 20.0 ug/dL (50-170); Total Iron Binding Capacity 162.0 ug/dL (250-425)
[2025-05-18] MEDS: POTASSIUM EFFERVESENT TAB 25 MEQ PO ONE (06:58)
--- NOTE | 2025-05-18 09:53 | ECG ---
[facility] Test Date: 2025-05-17 Test Time: 14:28:00 Pat Name: GEORGE ZUNIGA Department: ER Room: [address] [place] [address] Gender: F Winchman/Crane Operator: BLAKE : 1950 Requested By: BOBBY OTERO Order Number: [id number] Reading MD: Al Castellanos Measurements Intervals [place] Rate: 96 P: 32 GA: 151 QRS: -26 QRSD: 90 T: 73 QT: 365 QTc: 462 Interpretive Statements Sinus rhythm Atrial premature complex Borderline left axis deviation Low voltage, extremity and precordial leads Posterior infarct, old Artifact in lead(s) V1,V2,V3 Electronically Signed On 05-24-2025 15:31:42 PDT by Al Castellanos Please click the below link to view image of tracing.
[2025-05-18] MEDS ORDERED: FERROUS SULFATE 325mg EC TAB PO SCH (10:00)
[2025-05-18] MEDS ORDERED: cefTRIAXone 2GM/50ML D5W 50 ML IV SCH (10:00)
[2025-05-18] MEDS ORDERED: SPIRONOLACTONE 25 MG TAB PO SCH (10:00)
--- NOTE | 2025-05-18 10:45 | DVHINCON2 ---
Date Seen: May 18, 2025 Referring Physician MD Hair resident Reason for Consultation Bradycardia History of Present Illness This is a 75-year-old Bulgarian-speaking female patient who presents to emergency room with chief complaint of altered level of mentation. At the time of assessment, the patient is alert and oriented and able to answer all questions appropriately. Cardiology has been consulted at this time for bradycardia. Initial twelve lead electrocardiogram reveals normal sinus rhythm with artifact and many leads and low voltage study. Initial troponin level of 153ng/L with down trend thereafter. The patient denies any cardiac symptoms. At time of assessment, the patient is on a low-dose dopamine and Levophed drip. The patient was initiated on a low-dose dopamine drip per attending resident overnight. potline monitor reviewed, patient noted to have episodes of sinus bradycardia without any pauses or atrioventricular blocks. Significant past medical history includes liver cirrhosis, end-stage liver disease with ascites, frequent paracentesis, and chronic kidney disease. The patient also reports recently having a peritoneal port placed on 05/11/2025. Past Medical History Past medical history reviewed. No other significant than mentioned above. Past Surgical History Denies Family History: Alzheimer's disease Cerebrovascular accident (CVA) G8 SISTER G8 SISTER Family History Family history reviewed. Social History Denies the use of tobacco, alcohol or illicit drugs. Allergies: Coded Allergies: NO KNOWN ALLERGIES (Unverified , 10/14/24) Home Meds Active Scripts Cefdinir (Cefdinir) 300 Mg Cap, 1 CAP PO BID for 3 Days, #6 CAP Prov:JUMANA MANCILLA MD 02/05/25 Sodium Bicarbonate (Sodium Bicarbonate) 650 Mg Tab, 650 MG PO TID for 14 Days, #42 TAB Prov:JUMANA MANCILLA MD 02/05/25 Hydrocodone-Acetaminophen (Hydrocodone Bitartrate/AC 5-325 mg) 1 Tab Tab, 1 TAB PO Q8HPRN PRN, #14 TAB Prov:JUMANA MANCILLA MD 02/05/25 Sucralfate (CARAFATE) 1 Gm Tab, 1 GM PO ACHS, #120 TAB Prov:ABHISHEK FINE MD 01/20/25 Rifaximin (Xifaxan) 550 Mg Tab, 1 TAB PO BID, #28 TAB Prov:ABHISHEK FINE MD 01/20/25 Midodrine Hcl (Midodrine Hcl) 10 Mg Tab, 10 MG PO BID, #120 TAB Prov:ABHISHEK FINE MD 01/20/25 Reported Medications Furosemide (Furosemide) 20 Mg Tab, 1 TAB PO DAILY for 31 Days, #31 02/02/25 Omeprazole (Omeprazole Dr) 20 Mg Cap, 1 CAP PO DAILY for 90 Days, #90 02/02/25 Spironolactone (Spironolactone) 25 Mg Tab, 1 TAB PO DAILY for 31 Days, #31 02/01/25 Lactulose (Lactulose) 10 Gm Ceasar, 15 GM PO TID, PACK 02/01/25 Ferrous Sulfate (Ferosul) 325 Mg Tab, 325 MG PO DAILY, TAB 12/13/24 Home Meds Home medications reviewed. Current Medications Current Medications Medications (Trade) Dose Ordered Sig/Leti Route PRN Reason Start Time Stop Time Status Last Admin Norepinephrine Bitartrate 250 ml @ 3.75 mls/hr Q24H IV 05/17/25 20:15 05/17/25 22:02 Sodium Chloride (Saline Lock Ns) 10 ml Q8HR IV 05/17/25 22:00 05/18/25 06:05 Ceftriaxone Sodium/Dextrose 50 ml @ 50 mls/hr DAILY IV 05/18/25 10:00 05/18/25 05:08 DC Lactulose 30 ml BID PO 05/17/25 22:00 05/17/25 22:28 Pantoprazole Sodium (Protonix) 40 mg DAILY IV 05/18/25 10:00 Midodrine (Proamatine Tablet) 10 mg BID PO 05/17/25 22:00 05/18/25 04:41 DC 05/17/25 22:25 Spironolactone (Aldactone) 25 mg DAILY PO 05/18/25 10:00 05/18/25 05:56 DC Ferrous Sulfate 325 mg DAILY PO 05/18/25 10:00 05/18/25 05:59 DC Rifaximin (Xifaxan) 550 mg BID PO 05/17/25 22:00 05/17/25 22:25 Dopamine HCl/ Dextrose 250 ml @ 4.256 mls/ hr Q24H IV 05/18/25 05:00 05/18/25 05:07 Cefepime HCl 50 ml @ 12.5 mls/hr Q24H IV 05/18/25 17:30 Vancomycin HCl 0 ml @ 0 mls/hr UD IV 05/18/25 05:15 Furosemide (Lasix Tablet) 20 mg BIDD PO 05/18/25 06:00 05/18/25 06:17 Review of Systems Constitutional: No symptom reported Ears, Nose, & Throat: No symptom reported Eyes: No symptom reported Neurological: Altered level of mentation Pulmonary/Respiratory: No symptoms reported Cardiovascular: No symptom reported Gastrointestinal: No symptom reported Genitourinary: No symptom reported Musculoskeletal: No symptom reported Skin: No symptom reported Psychiatric: No symptom reported Endocrine: No symptom reported Hematologic/Lymphatic: No symptom reported Vital Signs Vital Signs Date Time Temp Pulse Resp B/P (MAP) Pulse Ox O2 Delivery O2 Flow Rate FiO2 05/18/25 08:00 62 05/18/25 07:00 12 115/74 (88) 97 05/18/25 06:15 97.5 97.5 05/18/25 01:17 Nasal Cannula* 2 28 Physical Exam General Appearance: Cooperative. Thin Pulmonary/Respiratory: Clear, bilateral breaths sounds. Cardiovascular/Chest: Regular rate and rhythm. Peripheral Pulses: 2+ Radial (R). 2+ Radial (L). 2+ Pedal (R). 2+ Pedal (L) Abdominal Exam: Normal bowel sounds. Large, distended abdomen. Peritoneal p ort on abdomen. Ankle Exam: Negative ankle edema Lower extremities: Negative lower extremity edema Neuro/Mental Status: A/OX3, coherent. Thoughts/Psych: Normal thought pattern. Appropriate mood and affect. Good judgment and insight. Appearance: No acute distress. Skin Exam: Generalized ecchymosis especially to bilateral arms Labs/Diagnostic Data Labs Test 05/18/25 03:35 05/17/25 23:10 05/17/25 20:30 05/17/25 17:50 Range/Units White Blood Count 5.6 # 4.4-10.8 10^3/uL Red Blood Count 3.17 L 4.0-5.20 10^6/uL Hemoglobin 9.9 #L 12.2-16.2 g/dL Hematocrit 30.9 #L 36.0-46.0 % Mean Corpuscular Volume 97.7 80.0-100.0 fL Mean Corpuscular Hemoglobin 31.2 28.0-32.0 pg Mean Corpuscular Hemoglobin Concent 31.9 L 32.0-36.0 g/dL Red Cell Distribution Width 13.6 11.8-14.3 % Platelet Count 86 L 140-450 10^3/uL Mean Platelet Volume 8.3 6.9-10.8 fL Neutrophils (%) (Auto) 88.4 H 37.0-80.0 % Lymphocytes (%) (Auto) 6.2 L 10.0-50.0 % Monocytes (%) (Auto) 5.0 0.0-12.0 % Eosinophils (%) (Auto) 0.2 0.0-7.0 % Basophils (%) (Auto) 0.2 0.0-2.0 % Neutrophils # (Auto) 5.0 1.6-8.6 10 ^3/uL Lymphocytes # (Auto) 0.4 0.4-5.4 10 ^3/uL Monocytes # (Auto) 0.3 0-1.3 10 ^3/uL Eosinophils # (Auto) 0 0-0.8 10 ^3/uL Basophils # (Auto) 0 0-0.2 10 ^3/uL Nucleated Red Blood Cells 0.1 % Prothrombin Time 13.8 H 9.3-11.8 sec Prothrombin Time INR 1.34 H 0.9-1.15 Activated Partial Thromboplast Time 51.3 H 24.5-34.5 SEC Sodium Level 137 136-145 mmol/L Potassium Level 3.3 L 3.5-5.1 mmol/L Chloride Level 107 98-107 mmol/L Carbon Dioxide Level 19 L 20-31 mmol/L Anion Gap 11 5-15 Blood Urea Nitrogen 55 H 9-23 mg/dL Creatinine 2.22 H 0.550-1.02 mg/dL Glomerular Filtration Rate Calc 23 >90 mL/min BUN/Creatinine Ratio 24.8 H 10.0-20.0 Serum Glucose 147 H 74-106 mg/dL Calcium Level 7.7 L 8.7-10.4 mg/dL Iron Level 20 L 50-170 ug/dL Total Iron Binding Capacity 162 L 250-425 ug/dL Percent Iron Saturation 12.3 L 15-50 % Ferritin 119.0 10-291 ng/mL Total Bilirubin 0.3 0.2-1.0 mg/dL Aspartate Amino Transferase (AST) 24 13-40 U/L Alanine Aminotransferase (ALT) 11 7-40 U/L Alkaline Phosphatase 59 46-116 U/L Total Protein 4.1 L 5.7-8.2 g/dL Albumin 2.1 L 3.2-4.8 g/dL Lipase 22 12-53 U/L Vitamin B12 Level 141 L 211-911 pg/mL Vitamin D 25-Hydroxy 30.6 30.0-100 ng/mL Folic Acid 11.12 >5.38 ng/mL Ammonia 67 H 11-32 umol/L Magnesium Level 2.0 1.6-2.6 mg/dL Troponin I High Sensitivity 125 *H </=34 ng/L Thyroid Stimulating Hormone (TSH) 3.55 0.55-4.78 uIU/mL Lactic Acid Level 3.2 *H 0.4-2.0 mmol/L Test 05/17/25 16:35 Range/Units POC Glucose 160 H 70-106 mg/dl Microbiology Date/Time Source Procedure Growth Status 05/17/25 16:03 Blood Blood Culture - Preliminary Resulted Assessment Sinus bradycardia likely in the setting of severe hypothermia Septic shock NSTEMI, type II secondary to above Liver cirrhosis with ascites Chronic kidney disease Acute on chronic anemia Thrombocytopenia Hypokalemia Plan/Recommendation We will continue with the following plan/recommendations (Dr. Castellanos): Case discussed with . A transthoracic echocardiogram from 01/20/2025 reveals EF of 75% without any valvular or wall motion abnormalities. At the time of assessment, the patient is on a low-dose dopamine and Levophed drip. Heart rate sustaining normal sinus rhythm in the 70s. Upon physical assessment, unable to check patient's temperature with regular thermometer. Bedside RN Madeleine placed rectal thermometer which revealed a core temperature of 93.4F. Initiate Bear Hugger and warming measures. Slowly taper off dopamine drip as chronotropic response improves with increased temperature. Continue with close cardiac surveillance. Notify cardiology team immediately for any ECG changes. Thank you for allowing us to care for this patient. Please call with any questions or concerns. Critical care time spent: 44 minutes This medical document was created using an electronic medical record system with voice recognition software and computerized dictation system. Although this document has been carefully reviewed, there might still be some phonetic and typographical errors. Occasional wrong-word or ``sound-alike substitutions may have occurred due to the inherent limitations of voice recognition software. These areas are purely typographical due to imperfections of the software programs and do not reflect any compromise in the patient's medical care. Please read the chart carefully and recognize, using context, where these substitutions have occurred. Plan discussed with: Patient NYHA Physical activity limitations: NA Date of Service: May 18, 2025 Billing Provider: BELLA SUTTON Cardiology Common Codes: 11492-RHOGEAY INP/OBS CARE (High) Cardiology Consultation Codes: 99588-[id number] CONSULT <45MIN BELLA SUTTON May 18, 2025 10:45
[2025-05-18] MEDS: PANTOPRAZOLE 40 MG/10 ML VIAL INJ IV SCH (11:17)
--- NOTE | 2025-05-18 11:27 | DVHPN2 ---
Subjective Still confused; nursing staff translated; discussed the patient's current critical clinical status with the patient's daughters Reviewed: Care Plan, H&P, Labs, Medications, Previous Orders, Radiology Changes from previous H/P or p: No Changes Objective Vitals Vital Signs Date Time Temp Pulse Resp B/P (MAP) Pulse Ox O2 Delivery O2 Flow Rate FiO2 05/18/25 08:00 62 05/18/25 07:21 16 97 Room Air* 0 21 05/18/25 07:21 126/83 (97) 05/18/25 06:15 97.5 97.5 Intake/Output Intake and Output 05/18/25 07:00 Intake Total 407.50 ml Balance 407.50 ml Intake IV Total 407.50 ml General Appearance: Alert, moderate distress, Other (Oriented to self and daughters) HEENT: Atraumatic Lungs: Clear to auscultation, Normal air movement Cardiovascular: Normal S1, Normal S2, Other (Bradycardia) Abdomen: Other (Decreased bowel sounds with ascites; peritoneal drain in place with a clean dressing; no signs of infection/bleeding) Rectal: Deferred Genitourinary: Other (Issa's in place with minimal urine output) FOOD PRODUCTS TESTER: Other (To be done by Dr. Carey) Extremities: Other (Discolored extremities with the skin wounds/lesions) Neuro: Normal speech, Cranial nerves 3-12 NL, Other (Confused; oriented to self and daughters) Skin: Breakdown, Bruising, Significant Lesion, Wounds, Other (More details as per wound care nurse) Psych/Mental Status: Other (Confused) Medications Current Medications Medications Dose Ordered Sig/Leti Route Start Time Stop Time Status Last Admin Dose Admin Norepinephrine Bitartrate 250 ml @ 3.75 mls/hr Q24H IV 05/17/25 20:15 05/17/25 22:02 3.75 MLS/HR Sodium Chloride 10 ml Q8HR IV 05/17/25 22:00 05/18/25 06:05 10 ML Lactulose 30 ml BID PO 05/17/25 22:00 05/18/25 11:17 30 ML Pantoprazole Sodium 40 mg DAILY IV 05/18/25 10:00 05/18/25 11:17 40 MG Rifaximin 550 mg BID PO 05/17/25 22:00 05/18/25 11:17 550 MG Dopamine HCl/ Dextrose 250 ml @ 4.256 mls/ hr Q24H IV 05/18/25 05:00 05/18/25 05:07 4.256 MLS/HR Cefepime HCl 50 ml @ 12.5 mls/hr Q24H IV 05/18/25 17:30 Vancomycin HCl 0 ml @ 0 mls/hr UD IV 05/18/25 05:15 Furosemide 20 mg BIDD PO 05/18/25 06:00 05/18/25 06:17 20 MG Laboratory Results Laboratory Tests 05/18/25 03:35 Chemistry Test 05/17/25 16:03 05/17/25 20:30 05/18/25 03:35 Albumin 2.3 g/dL (3.2-4.8) L 2.1 g/dL (3.2-4.8) L Calcium Level 7.8 mg/dL (8.7-10.4) L 7.7 mg/dL (8.7-10.4) L Total Protein 5.0 g/dL (5.7-8.2) L 4.1 g/dL (5.7-8.2) L Magnesium Level 2.0 mg/dL (1.6-2.6) Coagulation Test 05/17/25 16:03 05/17/25 20:30 05/18/25 03:35 Prothrombin Time 12.5 sec (9.3-11.8) H 14.2 sec (9.3-11.8) H 13.8 sec (9.3-11.8) H Prothrombin Time INR 1.20 (0.9-1.15) H 1.38 (0.9-1.15) H 1.34 (0.9-1.15) H Activated Partial Thromboplast Time 38.2 SEC (24.5-34.5) H 50.6 SEC (24.5-34.5) H 51.3 SEC (24.5-34.5) H Lipid panel Test 05/18/25 03:35 Lipase 22 U/L (12-53) LFT Test 05/17/25 16:03 05/18/25 03:35 Alanine Aminotransferase (ALT) 16 U/L (7-40) 11 U/L (7-40) Alkaline Phosphatase 88 U/L (46-116) 59 U/L (46-116) Aspartate Amino Transferase (AST) 28 U/L (13-40) 24 U/L (13-40) Total Bilirubin 0.5 mg/dL (0.2-1.0) 0.3 mg/dL (0.2-1.0) HgA1c, TSH Test 05/17/25 20:30 Thyroid Stimulating Hormone (TSH) 3.55 uIU/mL (0.55-4.78) Microbiology Microbiology Date/Time Source Procedure Growth Status 05/17/25 16:03 Blood Blood Culture - Preliminary Resulted Labs and/or images reviewed: Labs reviewed by me, Image(s) reviewed by me Assessment/Plan Assessment/Plan A 75-year-old female patient; with multiple comorbidities; who was on home hospice due to decompensated cirrhotic liver failure; who presented to the emergency department with altered mental status. #Acute hepatic/metabolic/toxic encephalopathy in the setting of decompensated cirrhotic liver failure and septic shock #Septic shock with lactic acidosis due to suspected infected vaginal ring #Decompensating cirrhotic liver failure with coagulopathy, thrombocytopenia, hyperammonemia, and acute hepatic encephalopathy #Diffuse skin discoloration and skin lesions #GER; can not rule out vasomotor nephropathy; suspected hepatorenal syndrome #Hypothermia due to septic shock #Bradycardia in the setting of septic shock #NSTEMI; most likely type 2 AL; demand ischemia in the setting of septic shock #Iron-deficiency anemia with an element of inflammatory anemia #Hypokalemia; most likely diuretic induced #Severe protein malnutrition Reviewed the available lab work and imaging studies Ordered and reviewed abdomen/pelvis CT without contrast Urology consulted for placement of Issa's catheter in the setting of difficult insertion of Issa's catheter due to uterine/vaginal prolapse Gynecology consulted for removal of suspected infected vaginal ring Continue broad-spectrum IV antibiotics No signs of infection of the peritoneal catheter; will send peritoneal fluid for Gram stain and culture Urine and blood cultures pending Continue IV vasopressor as indicated Continue IV dopamine as indicated Continue warming the patient with warming blanket Cardiology is following Reviewed EKG Telemetry No DVT prophylaxis in the setting of coagulopathy and thrombocytopenia Will continue with IV fluid boluses To replace electrolytes as needed To avoid hepato/nephrotoxic agents Restarted iron orally Stopped all diuretics Wound care team consulted Coupler consulted Rolling Mill Plugger consulted Strict inputs and outputs monitoring Continue lactulose Continue close monitoring Goals of care discussed with the patient and her daughters for 48 minutes; full code ( is not involved in the care of the patient) 160 minutes of critical care time Late Entry. This medical document was created using an electronic medical record system with computerized dictation system. Although this document has been carefully reviewed, there might still be some phonetic and typographical errors. These areas are purely typographical due to imperfections of the software programs, and do not reflect any compromise in the patient's medical care. Plan discussed with: Patient, Daughter, Other (Nurses and daughters) My Orders Orders - MACKENZIE LUNSFORD MD Procedure Category Date Status Time * Urology Consult CONS 05/18/25 Transmitted 11:09 Date of Service: May 18, 2025 Billing Provider: MACKENZIE LUNSFORD MD Common Visit Codes: 94130-NSWQGLYO CARE 30-74 MIN (160 minutes), 15661-[id number] CARE-EACH +30MIN Secondary Visit Codes: 83669-FFCNOTUO CARE PLAN 30 MINUTES (48 minutes), 55516- ADVANCED CARE PLAN ADDL 30MIN MACKENZIE LUNSFORD MD May 18, 2025 11:27
[2025-05-18] MEDS: POTASSIUM CHL 20MEQ/100ML 100 ML IV SCH (12:32)
[2025-05-18 12:56] LABS: Urine Budding Yeast MODERATE /hpf (None Seen); Urine Protein, UAD TRACE (Negative); Urine WBC Clumps PRESENT /hpf (None Seen)
--- NOTE | 2025-05-18 13:49 | DVH ---
Indication: Suspected abdominal abscess. Thank You! Technique: CT axial images of the abdomen and pelvis are obtained without contrast. Coronal and sagit lyssa reformats were obtained. Radiation Dose Information: CTDI volume is 427.03 mGy. Dose-length product is 419.19 mGy*cm Comparison: CT CT AB PEL WO CON-NO ORAL OR IV on DOS: 01/31/25, FINDINGS: There is limited interpretation of the abdomen and pelvis without administration of intravenous contr ast. Lung bases demonstrate bibasilar atelectasis/developing consolidation. Small bilateral pleural effusi ons. Adrenal glands, spleen and pancreas unremarkable in shape. Cirrhotic morphology liver. Cholelithiasi s. Kidneys demonstrate no hydronephrosis / nephrolithiasis. Stomach partially distended. Small bowel loops are normal in caliber. Moderate volume stool in the colon. Bowel wall thickening of the large bowel. Large volume of ascites fluid. Abdominal aortic atherosclerotic disease. There is a tunneled peritone al catheter which terminates in the left mid abdomen. There is a large scar like density in the pelvic cul-de-sac region, just anterior to the rectum that is radiopaque. [id number] bilateral sacroiliac degenerative joint disease. Moderate to severe thoracolumbar de generative disc disease. S shaped curvature of the thoracolumbar spine. IMPRESSION: Limited evaluation without contrast. Cirrhotic morphology liver and large volume of ascites fluid. Tunneled peritoneal catheter as described above. There is a large radiopaque density in the pelvis just anterior to the rectum that has square-shaped. Correlate clinically with surgical history and exclude any type of foreign body retention. Bowel wall thickening of the large bowel which can be secondary to portal hypertension related entero brian, colitis, inflammatory bowel disease. Small bilateral pleural effusions and bibasilar developing consolidation/atelectasis. Cholelithiasis. Soft tissue edema / anasarca. Other findings as described.
[2025-05-18] MEDS: SODIUM CHLORIDE 0.9% 1,000 ML IV ONE (14:34)
[2025-05-18 16:02] LABS: Lactic Acid w/Reflex 2.4 mmol/L (0.4-2.0)
[2025-05-18] MEDS: FERROUS SULFATE 325mg EC TAB PO SCH (16:07)
[2025-05-18] MEDS: FLUCONAZOLE 200MG/100ML 100 ML IV SCH (17:11)
[2025-05-18] MEDS: CEFEPIME 2GM/50ML NS 50 ML IV SCH (17:42)
[2025-05-18] MEDS: VANCOMYCIN 500mg/100mL 100 ML IV ONE (21:01)
[2025-05-18] MEDS: NYSTATIN TOPICAL POWDER 15GM TOP SCH (21:29)
[2025-05-19] VITALS (97 sets, daily range): BP systolic 77–118; BP diastolic 47–80; PULSE 55–110; RESP 9–25; TEMP 97.6–99.6; O2SAT 96–100
[2025-05-19] MEDS: MORPHINE SULFATE INJ 2 MG/ml SYRG IV PRN (01:40)
[2025-05-19 03:25] LABS: Hematocrit 31.2 % (36.0-46.0); Hemoglobin 10.4 g/dL (12.2-16.2); Mean Corpuscular Hemoglobin 31.3 pg (28.0-32.0); Mean Corpuscular Volume 93.8 fL (80.0-100.0); Nucleated Red Blood Cells % 0.0 %
[2025-05-19 03:39] LABS: Alanine Aminotransferase 13 U/L (7-40); Alkaline Phosphatase 59 U/L (46-116); Anion Gap 12 (5-15); BUN/Creatinine Ratio 23.9 (10.0-20.0); Magnesium 2.1 mg/dL (1.6-2.6); Potassium 3.7 mmol/L (3.5-5.1); Sodium 140 mmol/L (136-145)
[2025-05-19 03:40] LABS: Bilirubin, Total 0.3 mg/dL (0.2-1.0)
[2025-05-19 04:11] LABS: Albumin 2.4 g/dL (3.2-4.8); Blood Urea Nitrogen 52 mg/dL (9-23); Calcium 7.8 mg/dL (8.7-10.4); Carbon Dioxide 18 mmol/L (20-31); Chloride 110 mmol/L (98-107); Glucose 115 mg/dL (74-106); Total Protein 4.4 g/dL (5.7-8.2)
--- NOTE | 2025-05-19 09:06 | DVH ---
INDICATION: Unreliable historian/Pelvic inflamation TECHNIQUE: Multiple real-time grayscale transabdominal sonographic images along with color and duplex Doppler of the uterus and ovaries were obtained. COMPARISON: CT scan of the abdomen pelvis dated 05/18/2025. FINDINGS: The uterus measures 4.8 x 4.9 x 2.7 cm. The uterus is homogenous in echotexture. The endome trial stripe measures 0.3 cm. Radiodense object described in the pelvis on prior CT from 05/18/2025 i s not visualized. The ovaries are not visualized. Large volume ascites noted. IMPRESSION: 1. Uterus and endometrium are unremarkable. 2. Bilateral ovaries not visualized. 3. Large volume ascites.
[2025-05-19] MEDS: HYDROcodone-ACET 5/325MG TAB PO PRN (09:37)
--- NOTE | 2025-05-19 10:59 | DVHPN2 ---
Subjective Feeling better this morning and enjoying her breakfast; did not share any complaints Reviewed: Care Plan, H&P, Labs, Medications, Previous Orders, Radiology, Other (Consultation) Changes from previous H/P or p: Changes Objective Vitals Vital Signs Date Time Temp Pulse Resp B/P (MAP) Pulse Ox O2 Delivery O2 Flow Rate FiO2 05/19/25 10:45 90 14 88/64 (72) 97 05/19/25 08:00 97.6 97.6 05/19/25 08:00 Room Air* 0 21 Intake/Output Intake and Output 05/19/25 07:00 Intake Total 2258.75 ml Output Total 330 ml Balance 1928.75 ml Intake Oral 760 ml IV Total 1498.75 ml Output Urine Total 330 ml # Bowel Movements 2 General Appearance: Alert, No acute distress, Other (Oriented to self and daughters; continues to be confused) HEENT: Atraumatic Lungs: Clear to auscultation, Normal air movement Cardiovascular: Regular rate, Normal S1, Normal S2 Abdomen: Other (Decreased bowel sounds with ascites; peritoneal drain in place with a clean dressing; no signs of infection/bleeding) Rectal: Deferred Genitourinary: Other (Issa's in place with more urine output) TRAMPOLINE TEAM COACH: Other (Vaginal ring was removed by Gynecology team) Extremities: Other (Discolored extremities with the skin wounds/lesions) Neuro: Normal speech, Cranial nerves 3-12 NL, Other (Confused; oriented to self and daughters) Skin: Breakdown, Bruising, Significant Lesion, Wounds, Other (More details as per wound care nurse) Psych/Mental Status: Other (Confused) Medications Current Medications Medications Dose Ordered Sig/Leti Route Start Time Stop Time Status Last Admin Dose Admin Norepinephrine Bitartrate 250 ml @ 3.75 mls/hr Q24H IV 05/17/25 20:15 05/17/25 22:02 3.75 MLS/HR Sodium Chloride 10 ml Q8HR IV 05/17/25 22:00 05/19/25 05:23 10 ML Lactulose 30 ml BID PO 05/17/25 22:00 05/18/25 21:29 30 ML Pantoprazole Sodium 40 mg DAILY IV 05/18/25 10:00 05/19/25 09:36 40 MG Rifaximin 550 mg BID PO 05/17/25 22:00 05/19/25 09:37 550 MG Cefepime HCl 50 ml @ 12.5 mls/hr Q24H IV 05/18/25 17:30 05/18/25 17:42 12.5 MLS/HR Vancomycin HCl 0 ml @ 0 mls/hr UD IV 05/18/25 05:15 Acetaminophen/ Hydrocodone Bitart 1 tab Q6HPRN PRN PO 05/18/25 14:30 05/19/25 09:37 1 TAB Morphine Sulfate 1 mg Q6HP PRN IV 05/18/25 14:30 05/19/25 01:40 1 MG Ferrous Sulfate 325 mg DAILY PO 05/18/25 14:45 05/19/25 09:37 325 MG Nystatin 1 applic TID TOP 05/18/25 22:00 05/19/25 05:23 1 APPLIC Metronidazole 100 ml @ 100 mls/hr BID IV 05/19/25 10:00 05/26/25 10:00 05/19/25 10:42 100 MLS/HR Laboratory Results Laboratory Tests 05/19/25 02:44 05/19/25 02:46 Chemistry Test 05/19/25 02:46 Albumin 2.4 g/dL (3.2-4.8) L Calcium Level 7.8 mg/dL (8.7-10.4) L Magnesium Level 2.1 mg/dL (1.6-2.6) Total Protein 4.4 g/dL (5.7-8.2) L LFT Test 05/19/25 02:46 Alanine Aminotransferase (ALT) 13 U/L (7-40) Alkaline Phosphatase 59 U/L (46-116) Aspartate Amino Transferase (AST) 33 U/L (13-40) Total Bilirubin 0.3 mg/dL (0.2-1.0) Urinalysis Test 05/18/25 12:45 Urine Color Light-brown (Yellow) Urine Clarity Ex.turbid (Clear) Urine pH 5.5 (5.0-9.0) Urine Specific [employer] 1.013 (1.001-1.035) Urine Protein Trace (Negative) H Urine Ketones Negative (Negative) Urine Blood 1+ /uL (Negative) H Urine Nitrite Negative (Negative) Urine Bilirubin Negative (Negative) Urine Urobilinogen Normal mg/dL (Negative) Urine Leukocyte Esterase 3+ /uL (Negative) Urine RBC 5 /hpf (0 - 4) Urine WBC Clumps Present /hpf (None Seen) Urine Microscopic WBC 741 /HPF (0-5) H Urine Squamous Epithelial Cells None seen /hpf (<5) Urine Bacteria Many /hpf (None Seen) H Urine Mucus Few (None Seen) Urine Yeast (Budding) Moderate /hpf (None Seen) Urine Glucose Normal mg/dL (Normal) Microbiology Microbiology Date/Time Source Procedure Growth Status 05/18/25 07:01 Nose MRSA Screen - Final Complete 05/18/25 06:00 Voided Urine Urine Culture - Preliminary Resulted 05/17/25 16:03 Blood Blood Culture - Preliminary Resulted Labs and/or images reviewed: Labs reviewed by me, Image(s) reviewed by me Assessment/Plan Assessment/Plan A 75-year-old female patient; with multiple comorbidities; who was on home hospice due to decompensated cirrhotic liver failure; who presented to the emergency department with altered mental status. #Acute hepatic/metabolic/toxic encephalopathy in the setting of decompensated cirrhotic liver failure and septic shock #Septic shock with lactic acidosis due to infected vaginal ring; infected vaginal ring was removed by Gynecology team #Decompensating cirrhotic liver failure with coagulopathy, thrombocytopenia, hyperammonemia, and acute hepatic encephalopathy #Diffuse skin discoloration and skin lesions #GER; can not rule out vasomotor nephropathy; suspected hepatorenal syndrome #Hypothermia due to septic shock; controlled with heating blanket #Bradycardia in the setting of septic shock; resolved; off dopamine drip #NSTEMI; most likely type 2 NH; demand ischemia in the setting of septic shock #Iron-deficiency anemia with an element of inflammatory anemia #Hypokalemia; most likely diuretic induced #Severe protein malnutrition Reviewed the available lab work and imaging studies Urology placed the Issa's catheter in the setting of difficult insertion of Issa's catheter due to uterine/vaginal prolapse Continue broad-spectrum IV antibiotics No signs of infection of the peritoneal catheter; will send peritoneal fluid for Gram stain and culture Urine and blood cultures pending Continue IV vasopressor as indicated Continue warming the patient with warming blanket Cardiology is following Reviewed EKG Telemetry No DVT prophylaxis in the setting of coagulopathy and thrombocytopenia Will continue with IV fluid boluses as needed To replace electrolytes as needed To avoid hepato/nephrotoxic agents Continue iron orally Continue holding all diuretics Wound care team; Cattle Trader; and Telecommunications Clerk are following Strict inputs and outputs monitoring Continue lactulose Continue close monitoring Goals of care discussed with the patient and her daughter Nani for 20 minutes; full code ( is not involved in the care of the patient) 66 minutes of critical care time This medical document was created using an electronic medical record system with computerized dictation system. Although this document has been carefully reviewed, there might still be some phonetic and typographical errors. These areas are purely typographical due to imperfections of the software programs, and do not reflect any compromise in the patient's medical care. Plan discussed with: Patient, Daughter (Nani), Other (Nurse) My Orders Orders - MACKENZIE LUNSFORD MD Procedure Category Date Status Time Ct Ab Pel Wo Con-No CT 05/18/25 Resulted Oral Or Iv 11:30 Cardiac DIET 05/18/25 Transmitted Diet-2gna,Lofat,Lochol Lunch * Manager Port Consultation CONS 05/18/25 Transmitted 14:27 Hydrocodone-Acet PHA 05/18/25 In Process 5/325mg Tab (Sargeant 14:30 Morphine Sulfate PHA 05/18/25 In Process Injection 14:30 Ferrous Sulfate Tablet PHA 05/18/25 In Process 14:45 Complete Blood Count LAB 05/20/25 Verified 05:00 Complete Blood Count LAB 05/21/25 Verified 05:00 Complete Blood Count LAB 05/22/25 Verified 05:00 Complete Blood Count LAB 05/23/25 Verified 05:00 Comprehensive LAB 05/20/25 Verified Metabolic Panel 05:00 Consult For Nutrition NOURISH 05/18/25 Transmitted 14:48 * Telecommunications Clerk CONS 05/18/25 Transmitted Consult Body Fluid Culture W/ BERT 05/18/25 Logged GS 14:59 Blood Culture BERT 05/18/25 In Process 15:05 Date of Service: May 19, 2025 Billing Provider: MACKENZIE LUNSFORD MD Common Visit Codes: [id number] CARE 30-74 MIN (66 minutes) Secondary Visit Codes: [id number] CARE PLAN 30 MINUTES (20 minutes) MACKENZIE LUNSFORD MD May 19, 2025 10:59
[2025-05-19] MEDS: ALBUMIN 25% 100 ML IV ONE (14:08)
--- NOTE | 2025-05-19 14:08 | DVHINCON2 ---
Date of service: May 19, 2025 Referring Physician hospitalist Reason for Consultation infected vagina w/pessary History of Present Illness pt is admitted for aloc due to sepsis,consultation was requested due to suspected vaginal infection and pessary in place.limited information was obtained for history from record Past Medical History htn,cirrhosis,ckd,uterine prolapse Past Surgical History unknown Family History na Social History unknown Patient Family History: Alzheimer's disease Cerebrovascular accident (CVA) G8 SISTER G8 SISTER Allergies: Coded Allergies: NO KNOWN ALLERGIES (Unverified , 10/14/24) Home Meds Active Scripts Cefdinir (Cefdinir) 300 Mg Cap, 1 CAP PO BID for 3 Days, #6 CAP Prov:JUMANA MANCILLA MD 02/05/25 Sodium Bicarbonate (Sodium Bicarbonate) 650 Mg Tab, 650 MG PO TID for 14 Days, #42 TAB Prov:JUMANA MANCILLA MD 02/05/25 Hydrocodone-Acetaminophen (Hydrocodone Bitartrate/AC 5-325 mg) 1 Tab Tab, 1 TAB PO Q8HPRN PRN, #14 TAB Prov:JUMANA MANCILLA MD 02/05/25 Sucralfate (CARAFATE) 1 Gm Tab, 1 GM PO ACHS, #120 TAB Prov:ABHISHEK FINE MD 01/20/25 Rifaximin (Xifaxan) 550 Mg Tab, 1 TAB PO BID, #28 TAB Prov:ABHISHEK FINE MD 01/20/25 Midodrine Hcl (Midodrine Hcl) 10 Mg Tab, 10 MG PO BID, #120 TAB Prov:ABHISHEK FINE MD 01/20/25 Reported Medications Furosemide (Furosemide) 20 Mg Tab, 1 TAB PO DAILY for 31 Days, #31 02/02/25 Omeprazole (Omeprazole Dr) 20 Mg Cap, 1 CAP PO DAILY for 90 Days, #90 02/02/25 Spironolactone (Spironolactone) 25 Mg Tab, 1 TAB PO DAILY for 31 Days, #31 02/01/25 Lactulose (Lactulose) 10 Gm Ceasar, 15 GM PO TID, PACK 02/01/25 Ferrous Sulfate (Ferosul) 325 Mg Tab, 325 MG PO DAILY, TAB 12/13/24 Current Medications Current Medications Medications (Trade) Dose Ordered Sig/Leti Route PRN Reason Start Time Stop Time Status Last Admin Cefepime HCl 50 ml @ 12.5 mls/hr Q24H IV 05/18/25 17:30 05/18/25 17:42 Acetaminophen/ Hydrocodone Bitart ([place] 5/325MG Tab) 1 tab Q6HPRN PRN PO MODERATE PAIN (4-6 PAIN SCALE) 05/18/25 14:30 05/19/25 09:37 Morphine Sulfate 1 mg Q6HP PRN IV SEVERE PAIN (7-10 PAIN SCALE) 05/18/25 14:30 05/19/25 01:40 Ferrous Sulfate 325 mg DAILY PO 05/18/25 14:45 05/19/25 09:37 Nystatin (Mycostatin Powder) 1 applic TID TOP 05/18/25 22:00 05/19/25 05:23 Fluconazole 100 ml @ 100 mls/hr DAILY IV 05/18/25 17:00 05/19/25 09:25 DC 05/18/25 17:11 Metronidazole 100 ml @ 100 mls/hr BID IV 05/19/25 10:00 05/26/25 10:00 05/19/25 10:42 Review of Systems Constitutional: no fever, chill, weight loss HEENT: no eye pain, no hearing loss, no oral lesion, no scleral icterus Heart: no chest pain, no chest pressure Lung: no cough, no dyspnea with exertion Abdomen: see HPI : no pain with urination, normal appearing urine Musculoskeletal: no joint pain, no muscle pain Neurological: no seizure, no loss of sensation, no weakness in extremities Pysch: no depression, no anxiety Derm: no rash, no jaundice Vital Signs Vital Signs Date Time Temp Pulse Resp B/P (MAP) Pulse Ox O2 Delivery O2 Flow Rate FiO2 05/19/25 12:30 69 13 79/53 (62) 97 05/19/25 12:17 97.7 97.7 05/19/25 12:00 Room Air* 0 21 Physical Exam SKIN: [ecchymosis of upper extremities NECK: [nl] CARDIAC: [becky rate] PULMONARY: [cta] ABDOMEN: [pos bs ,distended pelvic- vulva erthamatous,cx and vag atrophic,pessary embedded removed compelet prolapse of uterus noted] Labs/Diagnostic Data Labs Test 05/19/25 02:46 05/19/25 02:44 05/18/25 15:13 05/18/25 12:45 Range/Units Sodium Level 140 136-145 mmol/L Potassium Level 3.7 3.5-5.1 mmol/L Chloride Level 110 H 98-107 mmol/L Carbon Dioxide Level 18 L 20-31 mmol/L Anion Gap 12 5-15 Blood Urea Nitrogen 52 H 9-23 mg/dL Creatinine 2.18 H 0.550-1.02 mg/dL Glomerular Filtration Rate Calc 23 >90 mL/min BUN/Creatinine Ratio 23.9 H 10.0-20.0 Serum Glucose 115 H 74-106 mg/dL Calcium Level 7.8 L 8.7-10.4 mg/dL Magnesium Level 2.1 1.6-2.6 mg/dL Total Bilirubin 0.3 0.2-1.0 mg/dL Aspartate Amino Transferase (AST) 33 13-40 U/L Alanine Aminotransferase (ALT) 13 7-40 U/L Alkaline Phosphatase 59 46-116 U/L Total Protein 4.4 L 5.7-8.2 g/dL Albumin 2.4 L 3.2-4.8 g/dL White Blood Count 5.9 4.4-10.8 10^3/uL Red Blood Count 3.33 L 4.0-5.20 10^6/uL Hemoglobin 10.4 L 12.2-16.2 g/dL Hematocrit 31.2 L 36.0-46.0 % Mean Corpuscular Volume 93.8 80.0-100.0 fL Mean Corpuscular Hemoglobin 31.3 28.0-32.0 pg Mean Corpuscular Hemoglobin Concent 33.4 32.0-36.0 g/dL Red Cell Distribution Width 13.7 11.8-14.3 % Platelet Count 80 L 140-450 10^3/uL Mean Platelet Volume 9.3 6.9-10.8 fL Neutrophils (%) (Auto) 84.6 H 37.0-80.0 % Lymphocytes (%) (Auto) 5.4 L 10.0-50.0 % Monocytes (%) (Auto) 6.2 0.0-12.0 % Eosinophils (%) (Auto) 3.3 0.0-7.0 % Basophils (%) (Auto) 0.5 0.0-2.0 % Neutrophils # (Auto) 5.0 1.6-8.6 10 ^3/uL Lymphocytes # (Auto) 0.3 L 0.4-5.4 10 ^3/uL Monocytes # (Auto) 0.4 0-1.3 10 ^3/uL Eosinophils # (Auto) 0.2 0-0.8 10 ^3/uL Basophils # (Auto) 0 0-0.2 10 ^3/uL Nucleated Red Blood Cells 0.0 % Ammonia 28 11-32 umol/L Random Vancomycin Level 21.4 H 5-10 ug/mL Lactic Acid Level 2.4 *H 0.4-2.0 mmol/L Urine Color Light-brown Yellow Urine Clarity Ex.turbid Clear Urine pH 5.5 5.0-9.0 Urine Specific [place] 1.013 1.001-1.035 Urine Protein Trace H Negative Urine Ketones Negative Negative Urine Blood 1+ H Negative /uL Urine Nitrite Negative Negative Urine Bilirubin Negative Negative Urine Urobilinogen Normal Negative mg/dL Urine Leukocyte Esterase 3+ Negative /uL Urine RBC 5 0 - 4 /hpf Urine WBC Clumps Present None Seen /hpf Urine Microscopic WBC 741 H 0-5 /HPF Urine Squamous Epithelial Cells None seen <5 /hpf Urine Bacteria Many H None Seen /hpf Urine Mucus Few None Seen Urine Yeast (Budding) Moderate None Seen /hpf Urine Glucose Normal Normal mg/dL Test 05/18/25 03:35 05/17/25 20:30 05/17/25 16:35 Range/Units Prothrombin Time 13.8 H 9.3-11.8 sec Prothrombin Time INR 1.34 H 0.9-1.15 Activated Partial Thromboplast Time 51.3 H 24.5-34.5 SEC Iron Level 20 L 50-170 ug/dL Total Iron Binding Capacity 162 L 250-425 ug/dL Percent Iron Saturation 12.3 L 15-50 % Ferritin 119.0 10-291 ng/mL Lipase 22 12-53 U/L Vitamin B12 Level 141 L 211-911 pg/mL Vitamin D 25-Hydroxy 30.6 30.0-100 ng/mL Folic Acid 11.12 >5.38 ng/mL Troponin I High Sensitivity 125 *H </=34 ng/L Thyroid Stimulating Hormone (TSH) 3.55 0.55-4.78 uIU/mL POC Glucose 160 H 70-106 mg/dl Microbiology Date/Time Source Procedure Growth Status 05/18/25 07:01 Nose MRSA Screen - Final Complete 05/18/25 06:00 Voided Urine Urine Culture - Preliminary Resulted 05/17/25 16:03 Blood Blood Culture - Preliminary Resulted Primary Diagnosis aloc due to sepsis 2' Diagnosis/Comorbidities procedentia ,s/p pessary removal with bacterial vaginitis Plan recommend flagyl iv,nystatin powder externally bid ,diflucan pessary removed,will follow if needed thank you Plan discussed with: Other Visit Coding OBGYN Date of Service: May 19, 2025 Billing Provider: BECKY STEVENS DO [employer] Common Visit Codes: [id number] OBS CARE (HIGH) B[employer] P[employer]ER Consultation Codes: [id number]/U INPATIENT CONSULT (HIGH) BECKY STEVENS DO May 19, 2025 14:08
[2025-05-20] VITALS (96 sets, daily range): BP systolic 77–124; BP diastolic 52–80; PULSE 56–122; RESP 8–30; TEMP 97.5–97.9; O2SAT 96–100
[2025-05-20 03:30] LABS: Hematocrit 28.5 % (36.0-46.0); Hemoglobin 9.6 g/dL (12.2-16.2); Mean Corpuscular Hemoglobin 31.5 pg (28.0-32.0); Mean Corpuscular Volume 93.8 fL (80.0-100.0); Nucleated Red Blood Cells % 0.1 %
[2025-05-20 03:44] LABS: Alanine Aminotransferase 11 U/L (7-40); Alkaline Phosphatase 50 U/L (46-116); Anion Gap 9 (5-15); BUN/Creatinine Ratio 23.6 (10.0-20.0); Bilirubin, Total 0.3 mg/dL (0.2-1.0); Potassium 3.6 mmol/L (3.5-5.1); Sodium 139 mmol/L (136-145)
[2025-05-20 03:53] LABS: Albumin 2.4 g/dL (3.2-4.8); Blood Urea Nitrogen 49 mg/dL (9-23); Calcium 8.2 mg/dL (8.7-10.4); Carbon Dioxide 19 mmol/L (20-31); Chloride 111 mmol/L (98-107); Glucose 118 mg/dL (74-106); Total Protein 4.0 g/dL (5.7-8.2)
--- NOTE | 2025-05-20 10:27 | DVHPN2 ---
Consult Progress Note Date Seen: May 20, 2025 Subjective Other Systems: No overnight cardiac events Objective vital signs Vital Sign Date Time Temp Pulse Resp B/P (MAP) Pulse Ox O2 Delivery O2 Flow Rate FiO2 05/20/25 09:15 91 13 102/73 (83) 98 05/20/25 08:00 97.8 97.8 05/20/25 08:00 Room Air* 0 21 Total Intake and Output 05/19/25 05/19/25 05/20/25 15:00 23:00 07:00 Intake Total 743.75 ml 5595.55 ml 280.0 ml Output Total 125 ml 300 ml Balance 743.75 ml 5470.55 ml -20.0 ml medications Current Medications Medications Dose Ordered Sig/Leti Route Start Time Stop Time Status Last Admin Dose Admin Norepinephrine Bitartrate 250 ml @ 3.75 mls/hr Q24H IV 05/17/25 20:15 05/20/25 01:23 7.5 MLS/HR Sodium Chloride 10 ml Q8HR IV 05/17/25 22:00 05/20/25 05:56 10 ML Lactulose 30 ml BID PO 05/17/25 22:00 05/20/25 09:58 30 ML Pantoprazole Sodium 40 mg DAILY IV 05/18/25 10:00 05/20/25 09:58 40 MG Rifaximin 550 mg BID PO 05/17/25 22:00 05/20/25 09:58 550 MG Cefepime HCl 50 ml @ 12.5 mls/hr Q24H IV 05/18/25 17:30 05/19/25 17:04 12.5 MLS/HR Vancomycin HCl 0 ml @ 0 mls/hr UD IV 05/18/25 05:15 Acetaminophen/ Hydrocodone Bitart 1 tab Q6HPRN PRN PO 05/18/25 14:30 05/19/25 09:37 1 TAB Morphine Sulfate 1 mg Q6HP PRN IV 05/18/25 14:30 05/19/25 01:40 1 MG Ferrous Sulfate 325 mg DAILY PO 05/18/25 14:45 05/20/25 09:58 325 MG Nystatin 1 applic TID TOP 05/18/25 22:00 05/20/25 05:56 1 APPLIC Metronidazole 100 ml @ 100 mls/hr BID IV 05/19/25 10:00 05/26/25 10:00 05/20/25 10:00 100 MLS/HR Examination: LUNGS:Normal, CVS:Normal (Sinus bradycardia at rest), NEURO:Normal laboratory and microbiology Laboratory Tests 05/20/25 02:45 Test 05/20/25 02:45 Range/Units Serum Glucose 118 H 74-106 mg/dL Problem List/Assessment/Plan Problem List/Assessment/Plan Septic shock Hypothermia induced bradycardia NSTEMI, type II secondary to above Liver cirrhosis with ascites Chronic kidney disease Acute on chronic anemia Thrombocytopenia Hypokalemia Plan/Recommendation (Dr. Castellanos) A transthoracic echocardiogram from 01/20/2025 reveals EF of 75% without any valvular or wall motion abnormalities. Presented with hypothermia induced bradycardia. Patient off chronotropic agents sustaining a stable heart rate. There are no sinus pauses or atrioventricular blocks present. Continue regular rectal temperature checks. There is no further cardiac work-up indicated at this time. Thank you for allowing us to care for this patient. Please call with any questions or concerns. Critical care time: 30 min. This medical document was created using an electronic medical record system with voice recognition software and computerized dictation system. Although this document has been carefully reviewed, there might still be some phonetic and typographical errors. Occasional wrong-word or ``sound-alike substitutions may have occurred due to the inherent limitations of voice recognition software. These areas are purely typographical due to imperfections of the software programs and do not reflect any compromise in the patient's medical care. Please read the chart carefully and recognize, using context, where these substitutions have occurred. Plan discussed with: Other Dietary Evaluation Review Recommendations by RD: Increase Calorie Intake, Protein Supplementation Comments: Pt meets criteria of severe protein-calorie malnutrition in the setting of chronic illness based on moderate muscle wasting, mild fat depletion and moderate fluid accumulation (ascites). Nutrition Recommendation 1) Liberalize diet to 2 gm Na diet 2) Ensure high protein 240ml TID 3) Monitor lab values, wt trend, I/O Expected Outcomes/Goals: To gain/maintain dry weight Intake to meet 75% estimated needs FU 3-5 days Body Fat Depletion (Non Severe: Mild Depletion Muscle Mass (Severe): Mod to Severe Depletion Fluid Accumulation (Severe): Moderate Fluid Retention Is there a minimum of two crit: Yes Date of Service: May 20, 2025 Billing Provider: MORENO GALLARDO Cardiology Common Codes: [id number] CARE 30-74 MIN MORENO GALLARDO May 20, 2025 10:27
--- NOTE | 2025-05-20 11:16 | DVHPN2 ---
Subjective Feeling better with no complaints; staff helped with translation Reviewed: Care Plan, H&P, Labs, Medications, Previous Orders, Radiology, Other (Consultation) Changes from previous H/P or p: Changes Objective Vitals Vital Signs Date Time Temp Pulse Resp B/P (MAP) Pulse Ox O2 Delivery O2 Flow Rate FiO2 05/20/25 10:00 12 99 Room Air* 0 21 05/20/25 10:00 74 05/20/25 09:15 102/73 (83) 05/20/25 08:00 97.8 97.8 Intake/Output Intake and Output 05/20/25 07:00 Intake Total 6619.30 ml Output Total 425 ml Balance 6194.30 ml Intake Oral 1140 ml IV Total 479.30 ml Intraperitoneal 5000 ml Output Urine Total 425 ml # Bowel Movements 2 General Appearance: Alert, No acute distress, Other (Oriented to self and daughters; continues to be confused) HEENT: Atraumatic Lungs: Clear to auscultation, Normal air movement Cardiovascular: Regular rate, Normal S1, Normal S2 Abdomen: Other (Active bowel sounds with decreased ascites; peritoneal drain in place with a clean dressing; no signs of infection/bleeding) Rectal: Deferred Genitourinary: Other (Issa's in place with more urine output) ROD STRAIGHTENER: Other (Vaginal ring was removed by Gynecology team) Extremities: Other (Discolored extremities with the skin wounds/lesions) Neuro: Normal speech, Cranial nerves 3-12 NL, Other (Confused; oriented to self and daughters) Skin: Breakdown, Bruising, Significant Lesion, Wounds, Other (More details as per wound care nurse) Psych/Mental Status: Other (Confused) Medications Current Medications Medications Dose Ordered Sig/Leti Route Start Time Stop Time Status Last Admin Dose Admin Norepinephrine Bitartrate 250 ml @ 3.75 mls/hr Q24H IV 05/17/25 20:15 05/20/25 01:23 7.5 MLS/HR Sodium Chloride 10 ml Q8HR IV 05/17/25 22:00 05/20/25 05:56 10 ML Lactulose 30 ml BID PO 05/17/25 22:00 05/20/25 09:58 30 ML Pantoprazole Sodium 40 mg DAILY IV 05/18/25 10:00 05/20/25 09:58 40 MG Rifaximin 550 mg BID PO 05/17/25 22:00 05/20/25 09:58 550 MG Cefepime HCl 50 ml @ 12.5 mls/hr Q24H IV 05/18/25 17:30 05/19/25 17:04 12.5 MLS/HR Vancomycin HCl 0 ml @ 0 mls/hr UD IV 05/18/25 05:15 Acetaminophen/ Hydrocodone Bitart 1 tab Q6HPRN PRN PO 05/18/25 14:30 05/19/25 09:37 1 TAB Morphine Sulfate 1 mg Q6HP PRN IV 05/18/25 14:30 05/19/25 01:40 1 MG Ferrous Sulfate 325 mg DAILY PO 05/18/25 14:45 05/20/25 09:58 325 MG Nystatin 1 applic TID TOP 05/18/25 22:00 05/20/25 05:56 1 APPLIC Metronidazole 100 ml @ 100 mls/hr BID IV 05/19/25 10:00 05/26/25 10:00 05/20/25 10:00 100 MLS/HR Laboratory Results Laboratory Tests 05/20/25 02:45 Chemistry Test 05/20/25 02:45 Albumin 2.4 g/dL (3.2-4.8) L Calcium Level 8.2 mg/dL (8.7-10.4) L Total Protein 4.0 g/dL (5.7-8.2) L LFT Test 05/20/25 02:45 Alanine Aminotransferase (ALT) 11 U/L (7-40) Alkaline Phosphatase 50 U/L (46-116) Aspartate Amino Transferase (AST) 23 U/L (13-40) Total Bilirubin 0.3 mg/dL (0.2-1.0) Urinalysis Test 05/18/25 12:45 Urine Color Light-brown (Yellow) Urine Clarity Ex.turbid (Clear) Urine pH 5.5 (5.0-9.0) Urine Specific [place] 1.013 (1.001-1.035) Urine Protein Trace (Negative) H Urine Ketones Negative (Negative) Urine Blood 1+ /uL (Negative) H Urine Nitrite Negative (Negative) Urine Bilirubin Negative (Negative) Urine Urobilinogen Normal mg/dL (Negative) Urine Leukocyte Esterase 3+ /uL (Negative) Urine RBC 5 /hpf (0 - 4) Urine WBC Clumps Present /hpf (None Seen) Urine Microscopic WBC 741 /HPF (0-5) H Urine Squamous Epithelial Cells None seen /hpf (<5) Urine Bacteria Many /hpf (None Seen) H Urine Mucus Few (None Seen) Urine Yeast (Budding) Moderate /hpf (None Seen) Urine Glucose Normal mg/dL (Normal) Microbiology Microbiology Date/Time Source Procedure Growth Status 05/19/25 14:59 Ascities Fluid Gram Stain Pending Resulted 05/19/25 14:59 Ascities Fluid Body Fluid Culture - Preliminary Resulted 05/18/25 16:10 Blood Blood Culture - Preliminary NO GROWTH AFTER 24 HOURS OF INCUBATION. Resulted 05/18/25 07:01 Nose MRSA Screen - Final Complete 05/18/25 06:00 Voided Urine Urine Culture - Final Complete Labs and/or images reviewed: Labs reviewed by me, Image(s) reviewed by me Assessment/Plan Assessment/Plan A 75-year-old female patient; with multiple comorbidities; who was on home hospice due to decompensated cirrhotic liver failure; who presented to the emergency department with altered mental status. #Acute hepatic/metabolic/toxic encephalopathy in the setting of decompensated cirrhotic liver failure and septic shock #Septic shock with lactic acidosis due to infected vaginal pessary and Proteus mirabilis bacteremia; infected vaginal pessary was removed by Gynecology team #Proteus mirabilis bacteremia; repeat blood cultures with no growth #Decompensating cirrhotic liver failure with coagulopathy, thrombocytopenia, hyperammonemia, ascites, and acute hepatic encephalopathy #Diffuse skin discoloration and skin lesions #GER; can not rule out vasomotor nephropathy; suspected hepatorenal syndrome #Hypothermia due to septic shock; controlled with heating blanket #Bradycardia in the setting of septic shock; resolved; off dopamine drip #NSTEMI; most likely type 2 [place]; demand ischemia in the setting of septic shock #Iron-deficiency anemia with an element of inflammatory anemia #Ascites with peritoneal catheter in place; status post paracentesis on May 19, 2025 of 5 L; albumin was given #Hypokalemia; most likely diuretic induced #Severe protein malnutrition Reviewed the available lab work and imaging studies Urology placed the Issa's catheter in the setting of difficult insertion of Issa's catheter due to uterine/vaginal prolapse Continue broad-spectrum IV antibiotics No signs of infection of the peritoneal catheter; no organism seen on Gram stain and culture Urine and blood cultures reviewed Continue IV vasopressor as indicated Continue warming the patient with warming blanket Cardiology is following Reviewed EKG Telemetry No DVT prophylaxis in the setting of coagulopathy and thrombocytopenia Will continue with IV fluid boluses as needed To replace electrolytes as needed To avoid hepato/nephrotoxic agents Continue iron orally Continue holding all diuretics Wound care team; Machine Tank Operator; and Bus Washer are following Strict inputs and outputs monitoring Continue lactulose Continue close monitoring Goals of care discussed with the patient and her daughter Nani for 20 minutes; still full code ( is not involved in the care of the patient) 55 minutes of critical care time This medical document was created using an electronic medical record system with computerized dictation system. Although this document has been carefully reviewed, there might still be some phonetic and typographical errors. These areas are purely typographical due to imperfections of the software programs, and do not reflect any compromise in the patient's medical care. Plan discussed with: Patient, Daughter, Other My Orders Orders - MACKENZIE LUNSFORD MD Procedure Category Date Status Time Notify Provider NOTICE 05/19/25 Transmitted Malnutrition 11:38 Nutritional NOURISH 05/19/25 Transmitted Supplements 11:38 Increase Calorie NOURISH 05/19/25 Transmitted Intake 11:38 Date of Service: May 20, 2025 Billing Provider: MACKENZIE LUNSFORD MD Common Visit Codes: [id number] CARE 30-74 MIN (55 minutes) Secondary Visit Codes: [id number] CARE PLAN 30 MINUTES (20 minutes) MACKENZIE LUNSFORD MD May 20, 2025 11:16
[2025-05-20] MEDS: VANCOMYCIN 500mg/100mL 100 ML IV ONE (17:05)
[2025-05-21] VITALS (96 sets, daily range): BP systolic 81–139; BP diastolic 50–87; PULSE 46–117; RESP 11–25; TEMP 97.6–98.3; O2SAT 95–100
[2025-05-21 03:20] LABS: Hematocrit 29.7 % (36.0-46.0); Hemoglobin 9.9 g/dL (12.2-16.2); Mean Corpuscular Hemoglobin 31.2 pg (28.0-32.0); Mean Corpuscular Volume 93.3 fL (80.0-100.0); Nucleated Red Blood Cells % 0.1 %
[2025-05-21 03:35] LABS: Alanine Aminotransferase 11 U/L (7-40); Alkaline Phosphatase 48 U/L (46-116); Anion Gap 10 (5-15); BUN/Creatinine Ratio 21.1 (10.0-20.0); Glucose 102 mg/dL (74-106); Potassium 3.6 mmol/L (3.5-5.1); Sodium 139 mmol/L (136-145)
[2025-05-21 03:36] LABS: Bilirubin, Total 0.3 mg/dL (0.2-1.0)
[2025-05-21 03:39] LABS: Albumin 2.2 g/dL (3.2-4.8); Blood Urea Nitrogen 42 mg/dL (9-23); Calcium 7.5 mg/dL (8.7-10.4); Carbon Dioxide 18 mmol/L (20-31); Chloride 111 mmol/L (98-107); Total Protein 3.9 g/dL (5.7-8.2)
--- NOTE | 2025-05-21 05:54 | DVH ---
EXAM: XY CHEST PORTABLE Indication: FOLLOW UP Technique: Single frontal view of the chest was obtained Comparison: XY CHEST XRAY 1 VIEW on DOS: 05/17/25, XY CHEST PORTABLE on DOS: 01/31/25, XY CHEST XRAY 1 V IEW on DOS: 12/19/24, XY CHEST XRAY 1 VIEW on DOS: 12/17/24, XY CHEST XRAY 1 VIEW on DOS: 12/16/24 FINDINGS: Lines and Tubes: Right internal jugular central venous catheter tip projects over the cavoatrial junc tion. Lungs: No focal consolidation. Low lung volumes. Pleura: No effusion. No pneumothorax. Cardiomediastinal contours: Unremarkable Bones: No acute osseous abnormality. IMPRESSION: Low lung volumes. No significant change compared to prior exam. No acute cardiopulmonary disease.
--- NOTE | 2025-05-21 10:57 | DVHPN2 ---
Subjective Feeling fine with no complaints; staff helped with translation Reviewed: Care Plan, H&P, Labs, Medications, Previous Orders, Radiology, Other (Consultation) Changes from previous H/P or p: No Changes Objective Vitals Vital Signs Date Time Temp Pulse Resp B/P (MAP) Pulse Ox O2 Delivery O2 Flow Rate FiO2 05/21/25 10:45 96 11 87/65 (72) 97 05/21/25 10:00 Room Air* 0 21 05/21/25 08:00 97.8 97.8 Intake/Output Intake and Output 05/21/25 07:00 Intake Total 1412.50 ml Output Total 500 ml Balance 912.50 ml Intake Oral 920 ml IV Total 492.50 ml Output Urine Total 500 ml # Bowel Movements 1 General Appearance: Alert, No acute distress, Other (Oriented to self and daughters; continues to be confused) HEENT: Atraumatic Lungs: Clear to auscultation, Normal air movement Cardiovascular: Regular rate, Normal S1, Normal S2 Abdomen: Other (Active bowel sounds with decreased ascites; peritoneal drain in place with a clean dressing; no signs of infection/bleeding) Rectal: Deferred Genitourinary: Other (Issa's in place with more urine output) DISEASE AND INSECT CONTROL BOSS: Other (Vaginal ring was removed by Gynecology team) Extremities: Other (Discolored extremities with the skin wounds/lesions) Neuro: Normal speech, Cranial nerves 3-12 NL, Other (Confused; oriented to self and daughters) Skin: Breakdown, Bruising, Significant Lesion, Wounds, Other (More details as per wound care nurse) Psych/Mental Status: Other (Confused) Medications Current Medications Medications Dose Ordered Sig/Leti Route Start Time Stop Time Status Last Admin Dose Admin Sodium Chloride 10 ml Q8HR IV 05/17/25 22:00 05/21/25 06:10 10 ML Lactulose 30 ml BID PO 05/17/25 22:00 05/21/25 09:39 30 ML Pantoprazole Sodium 40 mg DAILY IV 05/18/25 10:00 05/21/25 09:39 40 MG Rifaximin 550 mg BID PO 05/17/25 22:00 05/21/25 09:39 550 MG Cefepime HCl 50 ml @ 12.5 mls/hr Q24H IV 05/18/25 17:30 05/20/25 17:01 12.5 MLS/HR Vancomycin HCl 0 ml @ 0 mls/hr UD IV 05/18/25 05:15 Acetaminophen/ Hydrocodone Bitart 1 tab Q6HPRN PRN PO 05/18/25 14:30 05/20/25 17:01 1 TAB Morphine Sulfate 1 mg Q6HP PRN IV 05/18/25 14:30 05/19/25 01:40 1 MG Ferrous Sulfate 325 mg DAILY PO 05/18/25 14:45 05/21/25 09:39 325 MG Nystatin 1 applic TID TOP 05/18/25 22:00 05/21/25 06:10 1 APPLIC Metronidazole 100 ml @ 100 mls/hr BID IV 05/19/25 10:00 05/26/25 10:00 05/21/25 09:40 100 MLS/HR Midodrine 10 mg TID@0600,1200,1800 PO 05/21/25 12:00 UNV Norepinephrine Bitartrate 250 ml @ 0.938 mls/ hr Q24H IV 05/21/25 10:30 UNV Laboratory Results Laboratory Tests 05/21/25 02:33 Chemistry Test 05/21/25 02:33 Albumin 2.2 g/dL (3.2-4.8) L Calcium Level 7.5 mg/dL (8.7-10.4) L Total Protein 3.9 g/dL (5.7-8.2) L LFT Test 05/21/25 02:33 Alanine Aminotransferase (ALT) 11 U/L (7-40) Alkaline Phosphatase 48 U/L (46-116) Aspartate Amino Transferase (AST) 23 U/L (13-40) Total Bilirubin 0.3 mg/dL (0.2-1.0) Urinalysis Test 05/18/25 12:45 Urine Color Light-brown (Yellow) Urine Clarity Ex.turbid (Clear) Urine pH 5.5 (5.0-9.0) Urine Specific [place] 1.013 (1.001-1.035) Urine Protein Trace (Negative) H Urine Ketones Negative (Negative) Urine Blood 1+ /uL (Negative) H Urine Nitrite Negative (Negative) Urine Bilirubin Negative (Negative) Urine Urobilinogen Normal mg/dL (Negative) Urine Leukocyte Esterase 3+ /uL (Negative) Urine RBC 5 /hpf (0 - 4) Urine WBC Clumps Present /hpf (None Seen) Urine Microscopic WBC 741 /HPF (0-5) H Urine Squamous Epithelial Cells None seen /hpf (<5) Urine Bacteria Many /hpf (None Seen) H Urine Mucus Few (None Seen) Urine Yeast (Budding) Moderate /hpf (None Seen) Urine Glucose Normal mg/dL (Normal) Microbiology Microbiology Date/Time Source Procedure Growth Status 05/19/25 14:59 Ascities Fluid Gram Stain - Final Resulted 05/19/25 14:59 Ascities Fluid Body Fluid Culture - Preliminary Resulted 05/18/25 16:10 Blood Blood Culture - Preliminary NO GROWTH AFTER 48 HOURS OF INCUBATION. Resulted 05/18/25 07:01 Nose MRSA Screen - Final Complete 05/18/25 06:00 Voided Urine Urine Culture - Final Complete Labs and/or images reviewed: Labs reviewed by me, Image(s) reviewed by me Assessment/Plan Assessment/Plan A 75-year-old female patient; with multiple comorbidities; who was on home hospice due to decompensated cirrhotic liver failure; who presented to the emergency department with altered mental status. #Acute hepatic/metabolic/toxic encephalopathy in the setting of decompensated cirrhotic liver failure and septic shock #Septic shock with lactic acidosis due to infected vaginal pessary and Proteus mirabilis bacteremia; infected vaginal pessary was removed by Gynecology team #Proteus mirabilis bacteremia; repeat blood cultures with no growth #Decompensating cirrhotic liver failure with coagulopathy, thrombocytopenia, hyperammonemia, ascites, and acute hepatic encephalopathy #Diffuse skin discoloration and skin lesions #GER; can not rule out vasomotor nephropathy; suspected hepatorenal syndrome #Hypothermia due to septic shock; controlled with heating blanket #Bradycardia in the setting of septic shock; resolved; off dopamine drip #NSTEMI; most likely type 2 [place]; demand ischemia in the setting of septic shock #Iron-deficiency anemia with an element of inflammatory anemia #Ascites with peritoneal catheter in place; status post paracentesis on May 19, 2025 of 5 L; albumin was given #Hypokalemia; most likely diuretic induced #Severe protein malnutrition Reviewed the available lab work and imaging studies Urology placed the Issa's catheter in the setting of difficult insertion of Issa's catheter due to uterine/vaginal prolapse Continue broad-spectrum IV antibiotics No signs of infection of the peritoneal catheter; no organism seen on Gram stain and culture Urine and blood cultures reviewed Continue IV vasopressor as indicated; will start midodrine to wean off IV vasopressor Continue warming the patient with warming blanket Cardiology is following Reviewed EKG Telemetry No DVT prophylaxis in the setting of coagulopathy and thrombocytopenia Will continue with IV fluid boluses as needed To replace electrolytes as needed To avoid hepato/nephrotoxic agents Continue iron orally Continue holding all diuretics Wound care team; Digital Associate; and Inshore Undersea Warfare Officer are following Strict inputs and outputs monitoring Continue lactulose Continue close monitoring Goals of care discussed with the patient and her daughter Nani for 20 minutes; full code ( is not involved in the care of the patient) 45 minutes of critical care time This medical document was created using an electronic medical record system with computerized dictation system. Although this document has been carefully reviewed, there might still be some phonetic and typographical errors. These areas are purely typographical due to imperfections of the software programs, and do not reflect any compromise in the patient's medical care. Plan discussed with: Patient, Daughter, Other (Nurse) My Orders Orders - MACKENZIE LUNSFORD MD Procedure Category Date Status Time Apply Barrier Cream ARCHANA 05/20/25 In Process 13:40 * Dietary Consult CONS 05/20/25 Transmitted 15:30 Chest Portable XY 05/21/25 Resulted 04:00 Midodrine Tablet PHA 05/21/25 Logged (Proamatine Tablet) 12:00 Norepinephrine 8 PHA 05/21/25 Logged Mg/250ml Kit 10:30 Complete Blood Count LAB 05/22/25 Verified 04:00 Comprehensive LAB 05/22/25 Verified Metabolic Panel 04:00 Date of Service: May 21, 2025 Billing Provider: MACEKNZIE LUNSFORD MD Common Visit Codes: [id number] CARE 30-74 MIN (45 minutes) Secondary Visit Codes: [id number] CARE PLAN 30 MINUTES (20 minutes) MACKENZIE LUNSFORD MD May 21, 2025 10:57
[2025-05-21] MEDS: MIDODRINE HCL 10 MG TAB PO SCH (11:34)
[2025-05-21 16:06] LABS: Albumin, Body Fluid 0.7 g/dL (Not Estab.); Glucose, Body Fluid 151.0 mg/dL (.); LD, Body Fluid 59.0 IU/L (.)
[2025-05-21] MEDS: NOREPINEPHRINE 8 MG/250ML KIT 250 ML IV SCH (16:58)
[2025-05-21] MEDS: VANCOMYCIN 500mg/100mL 100 ML IV ONE (17:00)
[2025-05-22] VITALS (81 sets, daily range): BP systolic 73–139; BP diastolic 42–86; PULSE 43–87; RESP 10–23; TEMP 95.3–98.8; O2SAT 96–100
[2025-05-22 03:55] LABS: Hematocrit 29.2 % (36.0-46.0); Hemoglobin 9.9 g/dL (12.2-16.2); Mean Corpuscular Hemoglobin 31.7 pg (28.0-32.0); Mean Corpuscular Volume 93.3 fL (80.0-100.0); Nucleated Red Blood Cells % 0.0 %
[2025-05-22 03:56] LABS: Alanine Aminotransferase 11 U/L (7-40); Alkaline Phosphatase 48 U/L (46-116); Anion Gap 11 (5-15); BUN/Creatinine Ratio 23.1 (10.0-20.0); Bilirubin, Total 0.4 mg/dL (0.2-1.0); Glucose 94 mg/dL (74-106); Potassium 3.7 mmol/L (3.5-5.1); Sodium 141 mmol/L (136-145)
[2025-05-22 04:37] LABS: Albumin 2.2 g/dL (3.2-4.8); Blood Urea Nitrogen 42 mg/dL (9-23); Calcium 7.4 mg/dL (8.7-10.4); Carbon Dioxide 17 mmol/L (20-31); Chloride 113 mmol/L (98-107); Total Protein 4.0 g/dL (5.7-8.2)
[2025-05-22] MEDS: ALBUMIN 25% 100 ML IV ONE (16:27)
[2025-05-22] MEDS: ONDANSETRON HCL 4 MG/2 ML VIAL ONE (18:52)
[2025-05-22] MEDS ORDERED: ONDANSETRON HCL 4 MG/2 ML VIAL IV PRN (19:00)
--- NOTE | 2025-05-22 22:49 | DVHPNRES ---
Progress Note Date Seen: May 22, 2025 Resident Creating Document: GEORGE REICH RESIDENT Has the PT tested + for MRSA If YES, has PT been informed?: No Medical Necessity Reason Pt with a Central, PICC or Fol: Yes Subjective Review of Systems 75F with past medical history of hypertension, end-stage liver disease (ESLD) of unclear etiology (non-alcoholic, hepatitis panel negative), CKD, uterine prolapse, and recurrent ascites requiring serial paracentesis, BIBA with progressive confusion and hypotension. EMS noted BG 208 and SBP 99 that improved after 400 cc IVF. Per family, she had a drain placed 05/11/25 and has had fevers since. Daughter reported she was only responsive to name. Upon arrival, lactate was 4.3, ammonia 67, Trop I low but elevated, creatinine 2.6, WBC 4.2, Hgb 6.9, and Plt 76. CT abdomen showed large volume ascites, cirrhotic morphology, pleural effusions, and colitis. UA with pyuria and hematuria. Urine culture with mixed sade; blood cultures grew Proteus mirabilis on 05/17, then negative. Ascitic fluid culture negative; PMN < 250. CXR and CT with bibasilar changes. Peritoneal drain in place, currently draining 5.5 L. Pessary removed due to suspected local infection. Initially on vancomycin, cefepime, metronidazole; today de-escalated to ceftriaxone and metronidazole. Currently on norepinephrine at 2.5 mcg/kg/min. Full code status per family discussion; plan for hospice re- enrollment. PAST MEDICAL HISTORY ESLD, HTN, CKD, uterine prolapse, recurrent ascites, T2DM PAST SURGICAL HISTORY Uterine prolapse repair, pessary SOCIAL HISTORY Denies alcohol/drug use. Lives with . No smoking. HOME MEDICATIONS Lactulose, rifaximin, omeprazole, midodrine, cefdinir, sucralfate, acetaminophen-hydrocodone, furosemide, sodium bicarbonate, ferrous sulfate, iron Objective vital signs Vital Sign Date Time Temp Pulse Resp B/P (MAP) Pulse Ox O2 Delivery O2 Flow Rate FiO2 05/22/25 20:30 90/50 05/22/25 18:00 15 100 Room Air* 0 21 05/22/25 18:00 70 05/22/25 14:15 97.7 97.7 Total Intake and Output 05/21/25 05/21/25 05/22/25 15:00 23:00 07:00 Intake Total 474.690 ml 602.814 ml 276.566 ml Output Total 225 ml 225 ml Balance 474.690 ml 377.814 ml 51.566 ml medications Current Medications Medications Dose Ordered Sig/Leti Route Start Time Stop Time Status Last Admin Dose Admin Sodium Chloride 10 ml Q8HR IV 05/17/25 22:00 05/22/25 14:00 10 ML Lactulose 30 ml BID PO 05/17/25 22:00 05/21/25 21:57 30 ML Pantoprazole Sodium 40 mg DAILY IV 05/18/25 10:00 05/22/25 10:09 40 MG Rifaximin 550 mg BID PO 05/17/25 22:00 05/22/25 10:09 550 MG Acetaminophen/ Hydrocodone Bitart 1 tab Q6HPRN PRN PO 05/18/25 14:30 05/20/25 17:01 1 TAB Morphine Sulfate 1 mg Q6HP PRN IV 05/18/25 14:30 05/19/25 01:40 1 MG Ferrous Sulfate 325 mg DAILY PO 05/18/25 14:45 05/22/25 10:09 325 MG Nystatin 1 applic TID TOP 05/18/25 22:00 05/22/25 14:30 1 APPLIC Metronidazole 100 ml @ 100 mls/hr BID IV 05/19/25 10:00 05/26/25 10:00 05/22/25 10:09 100 MLS/HR Norepinephrine Bitartrate 250 ml @ 0.938 mls/ hr Q24H IV 05/21/25 10:30 05/21/25 16:58 4.688 MLS/HR Ceftriaxone Sodium/Dextrose 50 ml @ 50 mls/hr DAILY IV 05/23/25 10:00 Ondansetron HCl 4 mg Q4HPRN PRN IV 05/22/25 19:00 Examination A&O x1, RIJ line clean +ascites, mild scleral icterus, bibasilar crackles, no LE edema, ecchymosis necrotic wound in the right heel laboratory and microbiology Laboratory Tests 05/22/25 03:00 Test 05/22/25 03:00 Range/Units Serum Glucose 94 74-106 mg/dL Microbiology Date/Time Source Procedure Growth Status 05/19/25 14:59 Ascities Fluid Gram Stain - Final Resulted 05/19/25 14:59 Ascities Fluid Body Fluid Culture - Preliminary Resulted 05/18/25 16:10 Blood Blood Culture - Preliminary NO GROWTH AFTER 72 HOURS OF INCUBATION. Resulted 05/18/25 07:01 Nose MRSA Screen - Final Complete 05/18/25 06:00 Voided Urine Urine Culture - Final Complete Problem List/Assessment/Plan Problem List/Assessment/Plan Neurologic #Acute metabolic encephalopathy, likely multifactorial (hepatic encephalopathy vs septic shock) Continue lactulose and rifaximin. Monitor ammonia 18, 67, 28 #Dementia baseline? Per daughter, patient is alert and oriented when ammonia is normal Cardiovascular #Septic shock secondary to Proteus mirabilis bacteremia and UTI #NSTEMI type 2 #Bradycardia due to hypothermia Continue norepinephrine (currently 2.5 mcg/kg/min). Was previously on dopamine. Monitor MAP, lactate clearance, Echo: EF 70%, RA/RV enlargement. Trend systolic for weaning more than diastolic Patient was on midodrine at home, continue Respiratory: #Acute Hypoxic respiratory failure likely secondary to volume overload/pleural effusions and pneumonia #Possible gram positive gram negative pneumonia Continue O2 via NC. Monitor for worsening respiratory status. Monitor CXR. No ventilator support currently required. GI / Hepatic #[id number] liver failure (ESLD with recurrent ascites) #SBP ruled out #cholelithiasis #Ascites #sp tunneled catheter #Portal hypertension? No antibiotics needed for SBP as ascitic PMN <250 and culture negative. Continue to monitor fluid characteristics. Today ascites drainage 5.5 lt through tunneled cateter Continue hepatic encephalopathy treatment. Cholelithiasis incidental, no current intervention needed. Renal #GER due to VMN on CKD, creatinine peaked at 2.6 (baseline unknown) #Possible hepatorenal syndrome Monitor renal function. Her GER is improving but her urine output is low Infectious Disease #Proteus mirabilis bacteremia (likely UTI source), negative repeat cultures, polymicrobial colonization of urine Continue metronidazole and ceftriaxone. Monitor cultures. Blood cultures from 05/18 negative. / Reproductive #UTI with mixed sade, #pessary-related vaginal infection metronidazole iv Pessary removed. Continue antibiotics. Monitor UA and cultures. Maintain hygiene. Gyne follow-up not required unless symptoms worsen. Hematologic # Anemia (likely chronic, iron deficiency), #thrombocytopenia (PLT 76), INR 1.38 Transfuse PRBCs if Hgb <7. Continue iron. Monitor coags. Avoid unnecessary anticoagulation. No active bleeding. Patient was on iron supplement at home Endocrine / Metabolic #Diabettes mellitus type 2, hab1c pending #hypokalemia #hypothermia Monitor glucose levels (last BG 118), maintain euglycemia, no need of isnuli right now Replete potassium as needed. Monitor temp. warming measures for hypothermia. MSK / Skin #Pressure ulcers in back and foot the wound in the heel of the right foot look necrotic possible hoisting engineer pile driving f/u after stabilization Case discussed with Dr Walls Full code during hospitalization. Hospice will continue up to [place] Time spent on critical care 93 min, excluding procedures discussion with daughter Plan discussed with: Patient, Daughter My Orders My Orders Orders - GEORGE REICH RESIDENT Procedure Category Date Status Time Ceftriaxone 2gm/50ml PHA 05/23/25 In Process D5w (Rocephin 2gm/5 10:00 Ondansetron Hcl PHA 05/22/25 In Process (Zofran) 19:00 Dietary Evaluation Review Recommendations by RD: Increase Calorie Intake, Protein Supplementation Comments: Pt meets criteria of severe protein-calorie malnutrition in the setting of chronic illness based on moderate muscle wasting, mild fat depletion and moderate fluid accumulation (ascites). Nutrition Recommendation 1) Liberalize diet to 2 gm Na diet 2) Ensure high protein 240ml TID 3) Monitor lab values, wt trend, I/O Expected Outcomes/Goals: To gain/maintain dry weight Intake to meet 75% estimated needs FU 3-5 days Body Fat Depletion (Non Severe: Mild Depletion Muscle Mass (Severe): Mod to Severe Depletion Fluid Accumulation (Severe): Moderate Fluid Retention Is there a minimum of two crit: Yes Date of Service: May 22, 2025 Billing Provider: PHILLY WALLS MD Common Visit Codes: [id number] CARE 30-74 MIN, [id number] CARE-EACH +30MIN GEORGE REICH May 22, 2025 22:49 PHILLY WALLS MD May 23, 2025 14:35
[2025-05-23] VITALS (93 sets, daily range): BP systolic 65–132; BP diastolic 40–79; PULSE 46–130; RESP 3–27; TEMP 89.1–99.9; O2SAT 97–100
[2025-05-23 03:36] LABS: Hematocrit 29.2 % (36.0-46.0); Hemoglobin 9.8 g/dL (12.2-16.2); Mean Corpuscular Hemoglobin 31.2 pg (28.0-32.0); Mean Corpuscular Volume 92.9 fL (80.0-100.0); Nucleated Red Blood Cells % 0.0 %
[2025-05-23 03:49] LABS: Alanine Aminotransferase 12 U/L (7-40); Anion Gap 12 (5-15); BUN/Creatinine Ratio 24.3 (10.0-20.0); INR 1.36 (0.9-1.15); Partial Thromboplastin Time 49.2 SEC (24.5-34.5); Potassium 3.6 mmol/L (3.5-5.1); Prothrombin Time 14.0 sec (9.3-11.8); Sodium 142 mmol/L (136-145)
[2025-05-23 03:50] LABS: Bilirubin, Total 0.4 mg/dL (0.2-1.0)
[2025-05-23 03:54] LABS: Albumin 2.5 g/dL (3.2-4.8); Alkaline Phosphatase 43 U/L (46-116); Blood Urea Nitrogen 44 mg/dL (9-23); Calcium 7.8 mg/dL (8.7-10.4); Carbon Dioxide 17 mmol/L (20-31); Chloride 113 mmol/L (98-107); Glucose 123 mg/dL (74-106); Total Protein 4.3 g/dL (5.7-8.2)
--- NOTE | 2025-05-23 04:36 | DVH ---
CHEST RADIOGRAPH Indication: pneumonia Technique: Single frontal view of the chest was obtained COMPARISON: XY CHEST PORTABLE on DOS: 05/21/25, XY CHEST XRAY 1 VIEW on DOS: 05/17/25, XY CHEST PORTABL E on DOS: 01/31/25, XY CHEST XRAY 1 VIEW on DOS: 12/19/24, XY CHEST XRAY 1 VIEW on DOS: 12/17/24 FINDINGS: Lines and Tubes: Right internal jugular central venous catheter stable in position. Lungs: Stable chronic appearing bilateral interstitial pulmonary markings without evidence of focal c onsolidation. Pleura: No effusion. No pneumothorax. Cardiomediastinal contours: Unremarkable. Atherosclerotic vascular calcifications. Bones: Unremarkable IMPRESSION: 1. No acute disease. 2. Chronic appearing bilateral interstitial pulmonary markings. 3. Right internal jugular central venous catheter.
[2025-05-23] MEDS: MIDODRINE HCL 10 MG TAB PO SCH ×2 (09:44→18:25)
[2025-05-23] MEDS: cefTRIAXone 2GM/50ML D5W 50 ML IV SCH (09:45)
--- NOTE | 2025-05-23 13:55 | MEDREC ---
[facility] ASP Intervention Section I [facility] Intervention: Review courses of therapy (PER MD NOTE AND MICROBIOLOGY OF ASCITIC FLUID, MD BOSWELL REQUESTED NOT TO START ABX FOR ASCITES. CONSIDER DC METRONIDAZOLE. NO GROWTH ON CULUTURE. ) CHAZ ADAN [facility] RESIDENT May 23, 2025 13:55
--- NOTE | 2025-05-23 17:57 | DVHPNRES ---
Progress Note Date Seen: May 23, 2025 Resident Creating Document: GEROGE REICH RESIDENT Has the PT tested + for MRSA If YES, has PT been informed?: No Medical Necessity Reason Pt with a Central, PICC or Fol: Yes Subjective Review of Systems 75F with past medical history of hypertension, end-stage liver disease (ESLD) of unclear etiology (non-alcoholic, hepatitis panel negative), CKD, uterine prolapse, and recurrent ascites requiring serial paracentesis, BIBA with progressive confusion and hypotension. EMS noted BG 208 and SBP 99 that improved after 400 cc IVF. Per family, she had a drain placed 05/11/25 and has had fevers since. Daughter reported she was only responsive to name. Upon arrival, lactate was 4.3, ammonia 67, Trop I low but elevated, creatinine 2.6, WBC 4.2, Hgb 6.9, and Plt 76. CT abdomen showed large volume ascites, cirrhotic morphology, pleural effusions, and colitis. UA with pyuria and hematuria. Urine culture with mixed sade; blood cultures grew Proteus mirabilis on 05/17, then negative. Ascitic fluid culture negative; PMN < 250. CXR and CT with bibasilar changes. Peritoneal drain in place, currently draining 5.5 L. Pessary removed due to suspected local infection. Initially on vancomycin, cefepime, metronidazole; today de-escalated to ceftriaxone and metronidazole. Currently on norepinephrine at 2.5 mcg/kg/min. Full code status per family discussion; plan for hospice re- enrollment. PAST MEDICAL HISTORY ESLD, HTN, CKD, uterine prolapse, recurrent ascites, T2DM PAST SURGICAL HISTORY Uterine prolapse repair, pessary SOCIAL HISTORY Denies alcohol/drug use. Lives with . No smoking. HOME MEDICATIONS Lactulose, rifaximin, omeprazole, midodrine, cefdinir, sucralfate, acetaminophen-hydrocodone, furosemide, sodium bicarbonate, ferrous sulfate, iron 05/23/25: today, ammonia 43 and more encephalopathic, increase dose of lactulose TID, due to bradycardia, midodrine 5 mg TID, albumin, start PT, siene maker is consulted due to heel ulcer. Objective vital signs Vital Sign Date Time Temp Pulse Resp B/P (MAP) Pulse Ox O2 Delivery O2 Flow Rate FiO2 05/23/25 16:45 98.2 47 11 106/64 (78) 99 208.8 05/23/25 16:00 Room Air* 0 21 Total Intake and Output 05/22/25 05/22/25 05/23/25 15:00 23:00 07:00 Intake Total 257.504 ml 290.314 ml 467.504 ml Output Total 5800 ml 220 ml Balance 257.504 ml -5509.686 ml 247.504 ml medications Current Medications Medications Dose Ordered Sig/Leti Route Start Time Stop Time Status Last Admin Dose Admin Sodium Chloride 10 ml Q8HR IV 05/17/25 22:00 05/23/25 14:35 10 ML Pantoprazole Sodium 40 mg DAILY IV 05/18/25 10:00 05/23/25 09:45 40 MG Rifaximin 550 mg BID PO 05/17/25 22:00 05/23/25 09:44 550 MG Acetaminophen/ Hydrocodone Bitart 1 tab Q6HPRN PRN PO 05/18/25 14:30 05/23/25 14:43 1 TAB Morphine Sulfate 1 mg Q6HP PRN IV 05/18/25 14:30 05/19/25 01:40 1 MG Ferrous Sulfate 325 mg DAILY PO 05/18/25 14:45 05/23/25 09:44 325 MG Nystatin 1 applic TID TOP 05/18/25 22:00 05/23/25 14:37 1 APPLIC Metronidazole 100 ml @ 100 mls/hr BID IV 05/19/25 10:00 05/26/25 10:00 05/23/25 09:45 100 MLS/HR Norepinephrine Bitartrate 250 ml @ 0.938 mls/ hr Q24H IV 05/21/25 10:30 05/23/25 11:39 7.5 MLS/HR Ceftriaxone Sodium/Dextrose 50 ml @ 50 mls/hr DAILY IV 05/23/25 10:00 05/23/25 09:45 50 MLS/HR Ondansetron HCl 4 mg Q4HPRN PRN IV 05/22/25 19:00 Midodrine 5 mg TID@0600,1200,1800 PO 05/23/25 18:00 Lactulose 30 ml TID PO 05/23/25 22:00 UNV Examination A&O x1, RIJ line clean +ascites, mild scleral icterus, bibasilar crackles, no LE edema, ecchymosis necrotic wound in the right heel laboratory and microbiology Laboratory Tests 05/23/25 02:53 Test 05/23/25 02:53 Range/Units Serum Glucose 123 H 74-106 mg/dL Microbiology Date/Time Source Procedure Growth Status 05/19/25 14:59 Ascities Fluid Gram Stain - Final Resulted 05/19/25 14:59 Ascities Fluid Body Fluid Culture - Preliminary Resulted 05/18/25 16:10 Blood Blood Culture - Final NO GROWTH AFTER 5 DAYS OF INCUBATION. Complete 05/18/25 07:01 Nose MRSA Screen - Final Complete 05/18/25 06:00 Voided Urine Urine Culture - Final Complete Problem List/Assessment/Plan Problem List/Assessment/Plan Neurologic #Acute metabolic encephalopathy, likely multifactorial (hepatic encephalopathy vs septic shock) Continue lactulose and rifaximin: increase lactulose TID Monitor ammonia 18, 67, 28, 43 #Dementia baseline? Per daughter, patient is alert and oriented when ammonia is normal Cardiovascular #Septic shock secondary to Proteus mirabilis bacteremia and UTI #NSTEMI type 2 #Bradycardia due to hypothermia Continue norepinephrine 3 mcg Was previously on dopamine. Monitor MAP, lactate clearance, Echo: EF 70%, RA/RV enlargement. Trend systolic for weaning more than diastolic Patient was on midodrine at home, 5 mg TID, one dose fo albumin Respiratory: #Acute Hypoxic respiratory failure likely secondary to volume overload/pleural effusions and pneumonia resolved #Possible gram positive gram negative pneumonia Room air Monitor for worsening respiratory status. Monitor CXR. No ventilator support currently required. GI / Hepatic #[id number] liver failure (ESLD with recurrent ascites) #SBP ruled out #cholelithiasis #Ascites #sp tunneled catheter #Portal hypertension? No antibiotics needed for SBP as ascitic PMN <250 and culture negative. Continue to monitor fluid characteristics. 05/22/25 ascites drainage 5.5 lt through tunneled catheter Continue hepatic encephalopathy treatment. Cholelithiasis incidental, no current intervention needed. Renal #GER due to VMN on CKD, creatinine peaked at 2.6 (baseline unknown) #Possible hepatorenal syndrome Monitor renal function. her urine output is low Infectious Disease #Proteus mirabilis bacteremia (likely UTI source), negative repeat cultures, polymicrobial colonization of urine Continue metronidazole and ceftriaxone. Monitor cultures. Blood cultures from 05/18 negative. / Reproductive #UTI with mixed sade, #pessary-related vaginal infection metronidazole iv Pessary removed. Continue antibiotics. Monitor UA and cultures. Maintain hygiene. Gyne follow-up not required unless symptoms worsen. Hematologic # Anemia (likely chronic, iron deficiency), #thrombocytopenia (PLT 76), INR 1.38 Transfuse PRBCs if Hgb <7. Continue iron.. Avoid unnecessary anticoagulation. No active bleeding. Patient was on iron supplement at home Endocrine / Metabolic #Diabetes mellitus type 2, hab1c 5.3 #hypokalemia #hypothermia Monitor glucose levels (last BG 118), maintain euglycemia, no need of insulin right now Replete potassium as needed. Monitor temp. warming measures for hypothermia. MSK / Skin #Pressure ulcers in back and foot the wound in the heel of the right foot look necrotic siene maker consult Case discussed with Dr Pawan Vega code during hospitalization. Hospice will continue up to DC Time spent on critical care 67 min, excluding procedures discussion with daughter Plan discussed with: Daughter My Orders My Orders Orders - GEORGE REICH RESIDENT Procedure Category Date Status Time Ondansetron Hcl PHA 05/22/25 In Process (Zofran) 19:00 Chest Xray 1 View XY 05/23/25 Resulted 04:00 Pt Request For Service PT 05/23/25 Logged 10:53 *Podiatry Consult CONS 05/23/25 Transmitted Musson([facility]) 14:40 Communication Order ORDERS 05/23/25 Transmitted 14:43 Midodrine Tablet PHA 05/23/25 In Process (Proamatine Tablet) 18:00 Lactulose Oral PHA 05/23/25 Logged 22:00 Complete Blood Count LAB 05/24/25 Verified 04:00 Comprehensive LAB 05/24/25 Verified Metabolic Panel 04:00 Chest Xray 1 View XY 05/24/25 Logged 04:00 Dietary Evaluation Review Recommendations by RD: Increase Calorie Intake, Protein Supplementation Comments: Pt meets criteria of severe protein-calorie malnutrition in the setting of chronic illness based on moderate muscle wasting, mild fat depletion and moderate fluid accumulation (ascites). Nutrition Recommendation 1) Liberalize diet to 2 gm Na diet 2) Ensure high protein 240ml TID 3) Monitor lab values, wt trend, I/O Expected Outcomes/Goals: To gain/maintain dry weight Intake to meet 75% estimated needs FU 3-5 days Body Fat Depletion (Non Severe: Mild Depletion Muscle Mass (Severe): Mod to Severe Depletion Fluid Accumulation (Severe): Moderate Fluid Retention Is there a minimum of two crit: Yes Date of Service: May 23, 2025 Billing Provider: PHILLY WALLS MD Common Visit Codes: [id number] CARE 30-74 MIN GEORGE REICH RESIDENT May 23, 2025 17:57 PHILLY WALLS MD May 24, 2025 11:10
[2025-05-23] MEDS: ALBUMIN 25% 50 ML IV ONE (18:26)
[2025-05-23] MEDS: LACTULOSE 20Gm/30ML SOLN PO SCH (22:08)
[2025-05-24] VITALS (99 sets, daily range): BP systolic 81–132; BP diastolic 47–76; PULSE 43–86; RESP 11–20; TEMP 95.5–99.5; O2SAT 97–100
[2025-05-24 03:37] LABS: Hematocrit 25.9 % (36.0-46.0); Hemoglobin 8.9 g/dL (12.2-16.2); Mean Corpuscular Hemoglobin 31.7 pg (28.0-32.0); Mean Corpuscular Volume 92.6 fL (80.0-100.0); Nucleated Red Blood Cells % 0.0 %
[2025-05-24 03:52] LABS: Alkaline Phosphatase 47 U/L (46-116); Anion Gap 13 (5-15); BUN/Creatinine Ratio 20.9 (10.0-20.0); Potassium 3.7 mmol/L (3.5-5.1); Sodium 144 mmol/L (136-145)
[2025-05-24 03:53] LABS: Alanine Aminotransferase < 9 U/L (7-40); Albumin 2.5 g/dL (3.2-4.8); Bilirubin, Total 0.2 mg/dL (0.2-1.0); Blood Urea Nitrogen 43 mg/dL (9-23); Calcium 7.7 mg/dL (8.7-10.4); Carbon Dioxide 16 mmol/L (20-31); Chloride 115 mmol/L (98-107); Glucose 108 mg/dL (74-106); Total Protein 4.1 g/dL (5.7-8.2)
--- NOTE | 2025-05-24 04:31 | DVH ---
CHEST RADIOGRAPH Indication: intubated Technique: Single frontal view of the chest was obtained COMPARISON: XY CHEST XRAY 1 VIEW on DOS: 05/23/25, XY CHEST PORTABLE on DOS: 05/21/25, XY CHEST XRAY 1 VIEW on DOS: 05/17/25, XY CHEST PORTABLE on DOS: 01/31/25, XY CHEST XRAY 1 VIEW on DOS: 12/19/24 FINDINGS: Lines and Tubes: Right internal jugular central venous catheter unchanged. Lungs: Clear Pleura: No effusion. No pneumothorax. Cardiomediastinal contours: Unremarkable. Atherosclerotic vascular calcifications. Bones: Unremarkable IMPRESSION: 1. No acute disease. 2. Right IJ central venous catheter.
[2025-05-24] MEDS: ALBUMIN 25% 100 ML IV ONE (11:41)
--- NOTE | 2025-05-24 15:11 | DVHPNRES ---
Progress Note Date Seen: May 24, 2025 Resident Creating Document: GEORGE REICH RESIDENT Has the PT tested + for MRSA If YES, has PT been informed?: No Medical Necessity Reason Pt with a Central, PICC or Fol: Yes Subjective Review of Systems 75F with past medical history of hypertension, end-stage liver disease (ESLD) of unclear etiology (non-alcoholic, hepatitis panel negative), CKD, uterine prolapse, and recurrent ascites requiring serial paracentesis, BIBA with progressive confusion and hypotension. EMS noted BG 208 and SBP 99 that improved after 400 cc IVF. Per family, she had a drain placed 05/11/25 and has had fevers since. Daughter reported she was only responsive to name. Upon arrival, lactate was 4.3, ammonia 67, Trop I low but elevated, creatinine 2.6, WBC 4.2, Hgb 6.9, and Plt 76. CT abdomen showed large volume ascites, cirrhotic morphology, pleural effusions, and colitis. UA with pyuria and hematuria. Urine culture with mixed sade; blood cultures grew Proteus mirabilis on 05/17, then negative. Ascitic fluid culture negative; PMN < 250. CXR and CT with bibasilar changes. Peritoneal drain in place, currently draining 5.5 L. Pessary removed due to suspected local infection. Initially on vancomycin, cefepime, metronidazole; today de-escalated to ceftriaxone and metronidazole. Currently on norepinephrine at 2.5 mcg/kg/min. Full code status per family discussion; plan for hospice re- enrollment. PAST MEDICAL HISTORY ESLD, HTN, CKD, uterine prolapse, recurrent ascites, T2DM PAST SURGICAL HISTORY Uterine prolapse repair, pessary SOCIAL HISTORY Denies alcohol/drug use. Lives with . No smoking. HOME MEDICATIONS Lactulose, rifaximin, omeprazole, midodrine, cefdinir, sucralfate, acetaminophen-hydrocodone, furosemide, sodium bicarbonate, ferrous sulfate, iron 05/23/25: today, ammonia 43 and more encephalopathic, increase dose of lactulose TID, due to bradycardia, midodrine 5 mg TID, albumin, start PT, marine erector is consulted due to heel ulcer. 05/24/25: patient still having bradycardia, levophed 2 mcg, extra dose of albumin and cortisol am was ordered Objective vital signs Vital Sign Date Time Temp Pulse Resp B/P (MAP) Pulse Ox O2 Delivery O2 Flow Rate FiO2 05/24/25 15:00 51 13 108/60 (76) 100 05/24/25 14:45 95.9 204.6 05/24/25 14:00 Room Air* 0 21 Total Intake and Output 05/23/25 05/23/25 05/24/25 15:00 23:00 07:00 Intake Total 357.815 ml 387.504 ml 282.814 ml Output Total 100 ml 151 ml Balance 357.815 ml 287.504 ml 131.814 ml medications Current Medications Medications Dose Ordered Sig/Leti Route Start Time Stop Time Status Last Admin Dose Admin Sodium Chloride 10 ml Q8HR IV 05/17/25 22:00 05/24/25 13:14 10 ML Pantoprazole Sodium 40 mg DAILY IV 05/18/25 10:00 05/24/25 09:34 40 MG Rifaximin 550 mg BID PO 05/17/25 22:00 05/24/25 09:30 550 MG Acetaminophen/ Hydrocodone Bitart 1 tab Q6HPRN PRN PO 05/18/25 14:30 05/23/25 14:43 1 TAB Morphine Sulfate 1 mg Q6HP PRN IV 05/18/25 14:30 05/19/25 01:40 1 MG Ferrous Sulfate 325 mg DAILY PO 05/18/25 14:45 05/24/25 09:30 325 MG Nystatin 1 applic TID TOP 05/18/25 22:00 05/24/25 13:14 1 APPLIC Metronidazole 100 ml @ 100 mls/hr BID IV 05/19/25 10:00 05/26/25 10:00 05/24/25 10:28 100 MLS/HR Norepinephrine Bitartrate 250 ml @ 0.938 mls/ hr Q24H IV 05/21/25 10:30 05/24/25 11:42 3.75 MLS/HR Ceftriaxone Sodium/Dextrose 50 ml @ 50 mls/hr DAILY IV 05/23/25 10:00 05/24/25 09:32 50 MLS/HR Ondansetron HCl 4 mg Q4HPRN PRN IV 05/22/25 19:00 Midodrine 5 mg TID@0600,1200,1800 PO 05/23/25 18:00 05/24/25 11:41 5 MG Lactulose 30 ml TID PO 05/23/25 22:00 05/24/25 13:14 30 ML Examination A&O x1, RIJ line clean +ascites, mild scleral icterus, bibasilar crackles, no LE edema, ecchymosis necrotic wound in the right heel laboratory and microbiology Laboratory Tests 05/24/25 02:30 Test 05/24/25 02:30 Range/Units Serum Glucose 108 H 74-106 mg/dL Microbiology Date/Time Source Procedure Growth Status 05/19/25 14:59 Ascities Fluid Gram Stain - Final Complete 05/19/25 14:59 Ascities Fluid Body Fluid Culture - Final Complete 05/18/25 16:10 Blood Blood Culture - Final NO GROWTH AFTER 5 DAYS OF INCUBATION. Complete 05/18/25 07:01 Nose MRSA Screen - Final Complete 05/18/25 06:00 Voided Urine Urine Culture - Final Complete Problem List/Assessment/Plan Problem List/Assessment/Plan Neurologic #Acute metabolic encephalopathy, likely multifactorial (hepatic encephalopathy vs septic shock) Continue lactulose and rifaximin and lactulose TID Monitor ammonia 18, 67, 28, 43 #Dementia baseline? Per daughter, patient is alert and oriented when ammonia is normal Cardiovascular #Septic shock secondary to Proteus mirabilis bacteremia and UTI #NSTEMI type 2 #Bradycardia due to hypothermia Continue norepinephrine 2 mcg Was previously on dopamine. Monitor MAP, lactate clearance, Echo: EF 70%, RA/RV enlargement. Trend systolic for weaning more than diastolic Patient was on midodrine at home, 5 mg TID, one dose fo albumin today again Respiratory: #Acute Hypoxic respiratory failure likely secondary to volume overload/pleural effusions and pneumonia resolved #Possible gram positive gram negative pneumonia Room air Monitor for worsening respiratory status. Monitor CXR. No ventilator support currently required. GI / Hepatic #[id number] liver failure (ESLD with recurrent ascites) #SBP ruled out #cholelithiasis #Ascites #sp tunneled catheter #Portal hypertension? No antibiotics needed for SBP as ascitic PMN <250 and culture negative. Continue to monitor fluid characteristics. 05/22/25 ascites drainage 5.5 lt through tunneled catheter Continue hepatic encephalopathy treatment. Cholelithiasis incidental, no current intervention needed. Renal #GER due to VMN on CKD stage 4? #Possible hepatorenal syndrome Monitor renal function. her urine output is low Infectious Disease #Proteus mirabilis bacteremia (likely UTI source), negative repeat cultures, polymicrobial colonization of urine Continue metronidazole and ceftriaxone. Monitor cultures. Blood cultures from 05/18 negative. / Reproductive #UTI with mixed sade, #pessary-related vaginal infection metronidazole iv Pessary removed. Continue antibiotics. Monitor UA and cultures. Maintain hygiene. Gyne follow-up not required unless symptoms worsen. Hematologic # Anemia (likely chronic, iron deficiency), #thrombocytopenia (PLT 93), INR 1.36 Transfuse PRBCs if Hgb <7. Continue iron.. Avoid unnecessary anticoagulation. No active bleeding. Patient was on iron supplement at home Endocrine / Metabolic #Diabetes mellitus type 2, hab1c 5.3 #hypokalemia #hypothermia Monitor glucose levels (last BG 118), maintain euglycemia, no need of insulin right now Replete potassium as needed. Monitor temp. warming measures for hypothermia. MSK / Skin #Pressure ulcers in back and foot the wound in the heel of the right foot look necrotic marine erector consult Case discussed with Dr Walls Full code during hospitalization. Hospice will continue up to [place] Time spent on critical care 66 min, excluding procedures discussion with daughter Plan discussed with: Daughter My Orders My Orders Orders - GEORGE REICH Procedure Category Date Status Time Midodrine Tablet PHA 05/23/25 In Process (Proamatine Tablet) 18:00 Lactulose Oral PHA 05/23/25 In Process 22:00 Chest Xray 1 View XY 05/24/25 Resulted 04:00 Cortisol Am LAB 05/25/25 Verified 04:00 Dietary Evaluation Review Recommendations by RD: Increase Calorie Intake, Protein Supplementation Comments: Pt meets criteria of severe protein-calorie malnutrition in the setting of chronic illness based on moderate muscle wasting, mild fat depletion and moderate fluid accumulation (ascites). Nutrition Recommendation 1) Liberalize diet to 2 gm Na diet 2) Ensure high protein 240ml TID 3) Monitor lab values, wt trend, I/O Expected Outcomes/Goals: To gain/maintain dry weight Intake to meet 75% estimated needs FU 3-5 days Body Fat Depletion (Non Severe: Mild Depletion Muscle Mass (Severe): Mod to Severe Depletion Fluid Accumulation (Severe): Moderate Fluid Retention Is there a minimum of two crit: Yes Date of Service: May 24, 2025 Billing Provider: PHILLY WALLS MD Common Visit Codes: [id number] CARE 30-74 MIN GEORGE REICH May 24, 2025 15:11 PHILLY WALLS MD May 25, 2025 11:41
[2025-05-25] VITALS (100 sets, daily range): BP systolic 67–107; BP diastolic 30–68; PULSE 44–108; RESP 8–24; TEMP 91–99.3; O2SAT 96–100
[2025-05-25 03:13] LABS: Hematocrit 25.6 % (36.0-46.0); Hemoglobin 8.7 g/dL (12.2-16.2); Mean Corpuscular Hemoglobin 32.1 pg (28.0-32.0); Mean Corpuscular Volume 95.1 fL (80.0-100.0); Nucleated Red Blood Cells % 0.1 %
[2025-05-25 03:28] LABS: Anion Gap 11 (5-15); BUN/Creatinine Ratio 21.7 (10.0-20.0); Glucose 75 mg/dL (74-106); Potassium 3.6 mmol/L (3.5-5.1)
[2025-05-25 03:31] LABS: Alkaline Phosphatase 40 U/L (46-116); Blood Urea Nitrogen 43 mg/dL (9-23); Carbon Dioxide 18 mmol/L (20-31); Chloride 118 mmol/L (98-107); Sodium 147 mmol/L (136-145)
[2025-05-25 03:32] LABS: Alanine Aminotransferase < 9 U/L (7-40); Albumin 2.7 g/dL (3.2-4.8); Bilirubin, Total 0.3 mg/dL (0.2-1.0); Calcium 8.1 mg/dL (8.7-10.4); Total Protein 4.3 g/dL (5.7-8.2)
--- NOTE | 2025-05-25 12:09 | DVHINCON2 ---
Date Seen: May 25, 2025 Reason for Consultation Left heel wound History of Present Illness Patient is 75 years old female with past medical history of hypertension, cirrhosis of liver, CKD, uterine prolapse was brought in due to altered mental status. As per daughter Nani [phone] patient was noticed to be have confusion today morning and her blood pressure was difficulty measure at home. Daughter also reported patient had fever at home but could not mention the exact temperature. Daughter also reported patient had port placed in her abdomen for paracentesis on last 05/11/2025 at [facility] [place] and paracentesis was done. Due to patient's confusion and unable to measure blood pressure EMS was called and patient was brought to the ER. On arrival of EMS At the scene patient's blood sugar was 208 and blood pressure was systolic 99, 400 mL of IV fluid was given and systolic blood pressure went up to 111. At the ER paracentesis was done and 2 L fluid was removed. Patient with a history of recurrent paracentesis due to malignant ascites due to cirrhosis of liver. Initial lab workup revealed thrombocytopenia with platelet 124, serum creatinine 2.60, BUN 62, GFR 19, lactic acid 4.3, trop I 153> 136> 125, ammonia 16>67, INR 1.38. Doppler Study of the left upper extremity is negative for DVT. Past Medical History See H&P Past Surgical History See H&P Family History: Alzheimer's disease Cerebrovascular accident (CVA) G8 SISTER G8 SISTER Allergies: Coded Allergies: NO KNOWN ALLERGIES (Unverified , 10/14/24) Home Meds Active Scripts Cefdinir (Cefdinir) 300 Mg Cap, 1 CAP PO BID for 3 Days, #6 CAP Prov:JUMANA MANCILLA MD 02/05/25 Sodium Bicarbonate (Sodium Bicarbonate) 650 Mg Tab, 650 MG PO TID for 14 Days, #42 TAB Prov:JUMANA MANCILLA MD 02/05/25 Hydrocodone-Acetaminophen (Hydrocodone Bitartrate/AC 5-325 mg) 1 Tab Tab, 1 TAB PO Q8HPRN PRN, #14 TAB Prov:JUMANA MANCILLA MD 02/05/25 Sucralfate (CARAFATE) 1 Gm Tab, 1 GM PO ACHS, #120 TAB Prov:ABHISHEK FINE MD 01/20/25 Rifaximin (Xifaxan) 550 Mg Tab, 1 TAB PO BID, #28 TAB Prov:ABHISHEK FINE MD 01/20/25 Midodrine Hcl (Midodrine Hcl) 10 Mg Tab, 10 MG PO BID, #120 TAB Prov:ABHISHEK FINE MD 01/20/25 Reported Medications Furosemide (Furosemide) 20 Mg Tab, 1 TAB PO DAILY for 31 Days, #31 02/02/25 Omeprazole (Omeprazole Dr) 20 Mg Cap, 1 CAP PO DAILY for 90 Days, #90 02/02/25 Spironolactone (Spironolactone) 25 Mg Tab, 1 TAB PO DAILY for 31 Days, #31 02/01/25 Lactulose (Lactulose) 10 Gm Ceasar, 15 GM PO TID, PACK 02/01/25 Ferrous Sulfate (Ferosul) 325 Mg Tab, 325 MG PO DAILY, TAB 12/13/24 Current Medications Current Medications Medications (Trade) Dose Ordered Sig/Leti Route PRN Reason Start Time Stop Time Status Last Admin Oxycodone HCl 5 mg Q6HP PRN PO MODERATE PAIN (4-6 PAIN SCALE) 05/25/25 09:45 Vital Signs Vital Signs Date Time Temp Pulse Resp B/P (MAP) Pulse Ox O2 Delivery O2 Flow Rate FiO2 05/25/25 11:45 81/56 05/25/25 11:00 96.6 49 19 100 205.9 05/25/25 10:00 Room Air* 0 21 Physical Exam Dermatological: Skin is dry with mild erythema and some maceration around the wound site No gross deformities noted Mild non-pitting edema present bilaterally Left lateral heel with stable eschar Vascular: Dorsalis pedis and posterior tibial pulses are 1+ bilaterally Capillary refill is under 2 seconds Skin temperature is warm bilaterally Neurologic: Protective sensation is absent on the plantar forefoot bilaterally Monofilament testing reveals decreased sensation in multiple plantar sites Musculoskeletal: Range of motion at the ankle and MTP joints is within normal limits. Strength is 5/5 in all tested muscle groups. Gait is antalgic due to offloading of the affected limb. Labs/Diagnostic Data Labs Test 05/25/25 02:30 05/23/25 02:53 05/22/25 03:00 05/19/25 14:30 Range/Units White Blood Count 3.0 L 4.4-10.8 10^3/uL Red Blood Count 2.70 L 4.0-5.20 10^6/uL Hemoglobin 8.7 L 12.2-16.2 g/dL Hematocrit 25.6 L 36.0-46.0 % Mean Corpuscular Volume 95.1 80.0-100.0 fL Mean Corpuscular Hemoglobin 32.1 H 28.0-32.0 pg Mean Corpuscular Hemoglobin Concent 33.8 32.0-36.0 g/dL Red Cell Distribution Width 13.8 11.8-14.3 % Platelet Count 98 L 140-450 10^3/uL Mean Platelet Volume 8.6 6.9-10.8 fL Neutrophils (%) (Auto) 59.9 37.0-80.0 % Lymphocytes (%) (Auto) 17.0 10.0-50.0 % Monocytes (%) (Auto) 11.6 0.0-12.0 % Eosinophils (%) (Auto) 9.0 H 0.0-7.0 % Basophils (%) (Auto) 2.5 H 0.0-2.0 % Neutrophils # (Auto) 1.8 1.6-8.6 10 ^3/uL Lymphocytes # (Auto) 0.5 0.4-5.4 10 ^3/uL Monocytes # (Auto) 0.3 0-1.3 10 ^3/uL Eosinophils # (Auto) 0.3 0-0.8 10 ^3/uL Basophils # (Auto) 0.1 0-0.2 10 ^3/uL Nucleated Red Blood Cells 0.1 % Sodium Level 147 H 136-145 mmol/L Potassium Level 3.6 3.5-5.1 mmol/L Chloride Level 118 H 98-107 mmol/L Carbon Dioxide Level 18 L 20-31 mmol/L Anion Gap 11 5-15 Blood Urea Nitrogen 43 H 9-23 mg/dL Creatinine 1.98 H 0.550-1.02 mg/dL Glomerular Filtration Rate Calc 26 >90 mL/min BUN/Creatinine Ratio 21.7 H 10.0-20.0 Serum Glucose 75 74-106 mg/dL Calcium Level 8.1 L 8.7-10.4 mg/dL Total Bilirubin 0.3 0.2-1.0 mg/dL Aspartate Amino Transferase (AST) 17 13-40 U/L Alanine Aminotransferase (ALT) < 9 7-40 U/L Alkaline Phosphatase 40 L 46-116 U/L Ammonia 19 11-32 umol/L Total Protein 4.3 L 5.7-8.2 g/dL Albumin 2.7 L 3.2-4.8 g/dL Cortisol AM Sample 9.13 5.27-22.45 ug/dL Prothrombin Time 14.0 H 9.3-11.8 sec Prothrombin Time INR 1.36 H 0.9-1.15 Activated Partial Thromboplast Time 49.2 H 24.5-34.5 SEC Hemoglobin A1c 5.3 <5.7 % A1C Random Vancomycin Level 22.0 H 5-10 ug/mL Body Fluid Source Ascities fluid Body Fluid pH 8 Body Fluid WBC (Manual) 102 0-200 CUMM Body Fluid RBC (Manual) 0 0-2000 CUMM Body Fluid Mononuclear Cells 92 % Body Fluid Polymorphonuclear Cells 8 0-25 % Body Fluid Glucose 151 . mg/dL Body Fluid Total Protein 1.2 . g/dL Body Fluid Albumin 0.7 Not Estab. g/dL Body Fluid Lactate Dehydrogenase 59 . IU/L Test 05/19/25 02:46 05/18/25 15:13 05/18/25 12:45 05/18/25 03:35 Range/Units Magnesium Level 2.1 1.6-2.6 mg/dL Lactic Acid Level 2.4 *H 0.4-2.0 mmol/L Urine Color Light-brown Yellow Urine Clarity Ex.turbid Clear Urine pH 5.5 5.0-9.0 Urine Specific [place] 1.013 1.001-1.035 Urine Protein Trace H Negative Urine Ketones Negative Negative Urine Blood 1+ H Negative /uL Urine Nitrite Negative Negative Urine Bilirubin Negative Negative Urine Urobilinogen Normal Negative mg/dL Urine Leukocyte Esterase 3+ Negative /uL Urine RBC 5 0 - 4 /hpf Urine WBC Clumps Present None Seen /hpf Urine Microscopic WBC 741 H 0-5 /HPF Urine Squamous Epithelial Cells None seen <5 /hpf Urine Bacteria Many H None Seen /hpf Urine Mucus Few None Seen Urine Yeast (Budding) Moderate None Seen /hpf Urine Glucose Normal Normal mg/dL Iron Level 20 L 50-170 ug/dL Total Iron Binding Capacity 162 L 250-425 ug/dL Percent Iron Saturation 12.3 L 15-50 % Ferritin 119.0 10-291 ng/mL Lipase 22 12-53 U/L Vitamin B12 Level 141 L 211-911 pg/mL Vitamin D 25-Hydroxy 30.6 30.0-100 ng/mL Folic Acid 11.12 >5.38 ng/mL Test 05/17/25 20:30 05/17/25 16:35 Range/Units Troponin I High Sensitivity 125 *H </=34 ng/L Thyroid Stimulating Hormone (TSH) 3.55 0.55-4.78 uIU/mL POC Glucose 160 H 70-106 mg/dl Microbiology Date/Time Source Procedure Growth Status 05/19/25 14:59 Ascities Fluid Gram Stain - Final Complete 05/19/25 14:59 Ascities Fluid Body Fluid Culture - Final Complete 05/18/25 16:10 Blood Blood Culture - Final NO GROWTH AFTER 5 DAYS OF INCUBATION. Complete 05/18/25 07:01 Nose MRSA Screen - Final Complete 05/18/25 06:00 Voided Urine Urine Culture - Final Complete Problems(with codes): (1) Hematemesis (2) Acute renal failure (3) Anemia (4) Hyperammonemia (5) Pancytopenia (6) Hypotension (7) Pneumonia (8) Sputum culture positive for ESBL E. coli (9) Gastropathy (10) Acute renal insufficiency (11) Pleural effusion (12) Thrombocytopenia (13) Hypoalbuminemia (14) UTI (urinary tract infection) (15) Elevated troponin (16) Yeast UTI (17) Elevated lipase (18) Acute renal injury (19) Hepatic encephalopathy (20) Liver cirrhosis (21) Sepsis (22) Acute metabolic encephalopathy (23) Ascites Plan/Recommendation ASSESSMENT: Patient is a 75-year-old seen with the left heel ulcer PLAN: - The patients chart was reviewed, clinical findings were discussed with the abdelrahman mishra, the etiologies of the conditions were discussed in detail, and a treatment plan was agreed to at this time, with both oral and written instructions provided. - reviewed advanced imaging - conservative treatment recommended at this point - Betadine gauze Kerlix around the heel - appears to be stable at this point - no surgical intervention required All questions were answered and concerns addressed to the patient's satisfaction. The patient was given the phone number to the clinic and was told how to make contact with the clinic should any concerns or questions arise. Patient understands that if any questions or concerns arise prior to the next appointment, we should be contacted immediately. FOLLOW-UP: Continue to follow while inpatient Plan discussed with: Patient Date of Service: May 25, 2025 Billing Provider: JEROD MONET DPM Common Visit Codes: CONSULT ONLY Consultation Codes: [id number] CONSULT <80MIN JEROD MONET DPM May 25, 2025 12:09
[2025-05-25] MEDS: SODIUM CHLORIDE 0.9% 250 ML IV ONE (12:30)
[2025-05-25] MEDS: MIDODRINE HCL 10 MG TAB PO ONE (13:35)
[2025-05-25] MEDS: LACTULOSE 20Gm/30ML SOLN PO SCH (13:36)
--- NOTE | 2025-05-25 18:11 | DVHPNRES ---
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 EMS noted BG 208 and SBP 99 that improved after 400 cc IVF. Per family, she had a drain placed 05/11/25 and has had fevers since. Daughter reported she was only responsive to name. Upon arrival, lactate was 4.3, ammonia 67, Trop I low but elevated, creatinine 2.6, WBC 4.2, Hgb 6.9, and Plt 76. CT abdomen showed large volume ascites, cirrhotic morphology, pleural effusions, and colitis. UA with pyuria and hematuria. Urine culture with mixed sade; blood cultures grew Proteus mirabilis on 05/17, then negative. Ascitic fluid culture negative; PMN < 250. CXR and CT with bibasilar changes. Peritoneal drain in place, currently draining 5.5 L. Pessary removed due to suspected local infection. Initially on vancomycin, cefepime, metronidazole; today de-escalated to ceftriaxone and metronidazole. Currently on norepinephrine at 2.5 mcg/kg/min. Full code status per family discussion; plan for hospice re- enrollment. PAST MEDICAL HISTORY ESLD, HTN, CKD, uterine prolapse, recurrent ascites, T2DM PAST SURGICAL HISTORY Uterine prolapse repair, pessary SOCIAL HISTORY Denies alcohol/drug use. Lives with . No smoking. 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 05/24/25: patient still having bradycardia, levophed 2 mcg, extra dose of albumin and cortisol am was ordered 05/25/25: cortisol borderline, patient was able to be wean off levophed, IVF needed, multiple bowel movements, lactulose BID, midodrine 10 mg TID Objective vital signs Vital Sign Date Time Temp Pulse Resp B/P (MAP) Pulse Ox O2 Delivery O2 Flow Rate FiO2 05/25/25 17:30 98.4 74 20 73/52 (59) 99 209.1 05/25/25 16:00 Room Air* 0 21 Total Intake and Output 05/24/25 05/24/25 05/25/25 15:00 23:00 07:00 Intake Total 182.814 ml 283.777 ml 122.441 ml Output Total 250 ml 150 ml Balance 182.814 ml 33.777 ml -27.559 ml medications Current Medications Medications Dose Ordered Sig/Leti Route Start Time Stop Time Status Last Admin Dose Admin Sodium Chloride 10 ml Q8HR IV 05/17/25 22:00 05/25/25 13:36 10 ML Pantoprazole Sodium 40 mg DAILY IV 05/18/25 10:00 05/25/25 09:49 40 MG Rifaximin 550 mg BID PO 05/17/25 22:00 05/25/25 09:41 550 MG Morphine Sulfate 1 mg Q6HP PRN IV 05/18/25 14:30 05/19/25 01:40 1 MG Ferrous Sulfate 325 mg DAILY PO 05/18/25 14:45 05/25/25 09:41 325 MG Nystatin 1 applic TID TOP 05/18/25 22:00 05/25/25 13:36 1 APPLIC Metronidazole 100 ml @ 100 mls/hr BID IV 05/19/25 10:00 05/26/25 10:00 05/25/25 10:49 100 MLS/HR Norepinephrine Bitartrate 250 ml @ 0.938 mls/ hr Q24H IV 05/21/25 10:30 05/24/25 11:42 3.75 MLS/HR Ceftriaxone Sodium/Dextrose 50 ml @ 50 mls/hr DAILY IV 05/23/25 10:00 05/25/25 09:44 50 MLS/HR Ondansetron HCl 4 mg Q4HPRN PRN IV 05/22/25 19:00 Oxycodone HCl 5 mg Q6HP PRN PO 05/25/25 09:45 Lactulose 30 ml BID PO 05/25/25 12:30 05/25/25 13:36 30 ML Midodrine 10 mg TID@0600,1200,1800 PO 05/25/25 18:00 Examination A&O x1, RIJ line clean +ascites, mild scleral icterus, bibasilar crackles, no LE edema, ecchymosis necrotic wound in the right heel laboratory and microbiology Laboratory Tests 05/25/25 02:30 Test 05/25/25 02:30 Range/Units Serum Glucose 75 74-106 mg/dL Microbiology Date/Time Source Procedure Growth Status 05/19/25 14:59 Ascities Fluid Gram Stain - Final Complete 05/19/25 14:59 Ascities Fluid Body Fluid Culture - Final Complete 05/18/25 16:10 Blood Blood Culture - Final NO GROWTH AFTER 5 DAYS OF INCUBATION. Complete 05/18/25 07:01 Nose MRSA Screen - Final Complete 05/18/25 06:00 Voided Urine Urine Culture - Final Complete Problem List/Assessment/Plan Problem List/Assessment/Plan Neurologic #Acute metabolic encephalopathy, likely multifactorial (hepatic encephalopathy vs septic shock) Continue lactulose and rifaximin and lactulose TID Monitor ammonia 18, 67, 28, 43, 19, 21 #Dementia baseline? Per daughter, patient is alert and oriented when ammonia is normal Cardiovascular #Septic shock secondary to Proteus mirabilis bacteremia and UTI #NSTEMI type 2 #Bradycardia due to hypothermia Continue norepinephrine 2 mcg Was previously on dopamine. Monitor MAP, lactate clearance, Echo: EF 70%, RA/RV enlargement. Trend systolic for weaning more than diastolic Patient was on midodrine at home, 5 mg TID, one dose fo albumin today again Respiratory: #Acute Hypoxic respiratory failure likely secondary to volume overload/pleural effusions and pneumonia resolved #Possible gram positive gram negative pneumonia Room air Monitor for worsening respiratory status. Monitor CXR. No ventilator support currently required. GI / Hepatic #Loped-ga-dhtgtla liver failure (ESLD with recurrent ascites) #SBP ruled out #cholelithiasis #Ascites #sp tunneled catheter #Portal hypertension? No antibiotics needed for SBP as ascitic PMN <250 and culture negative. Continue to monitor fluid characteristics. 05/22/25 ascites drainage 5.5 lt through tunneled catheter Continue hepatic encephalopathy treatment. Cholelithiasis incidental, no current intervention needed. 05/25/25: cortisol borderline, patient was able to be wean off levophed, IVF needed, multiple bowel movements, lactulose BID, midodrine 10 mg TID Renal #GER due to VMN on CKD stage 4? #Possible hepatorenal syndrome Monitor renal function. her urine output is low Infectious Disease #Proteus mirabilis bacteremia (likely UTI source), negative repeat cultures, polymicrobial colonization of urine Continue metronidazole and ceftriaxone. Monitor cultures. Blood cultures from 05/18 negative. / Reproductive #UTI with mixed sade, #pessary-related vaginal infection metronidazole iv Pessary removed. Continue antibiotics. Monitor UA and cultures. Maintain hygiene. Gyne follow-up not required unless symptoms worsen. Hematologic # Anemia (likely chronic, iron deficiency), #thrombocytopenia (PLT 94), INR 1.36 Transfuse PRBCs if Hgb <7. Continue iron.. Avoid unnecessary anticoagulation. No active bleeding. Patient was on iron supplement at home Endocrine / Metabolic #Diabetes mellitus type 2, hab1c 5.3 #hypokalemia #hypothermia Monitor glucose levels (last BG 118), maintain euglycemia, no need of insulin right now Replete potassium as needed. Monitor temp. warming measures for hypothermia. 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 Hospice will continue up to DC Time spent on critical care 57 min, excluding procedures discussion with daughter Plan discussed with: Daughter My Orders My Orders Orders - GEORGE REICH RESIDENT Procedure Category Date Status Time Oxycodone Immediate PHA 05/25/25 In Process Rel Tablet 09:45 Dietary Evaluation Review Recommendations by RD: Increase Calorie Intake, Protein Supplementation Comments: Pt meets criteria of severe protein-calorie malnutrition in the setting of chronic illness based on moderate muscle wasting, mild fat depletion and moderate fluid accumulation (ascites). Nutrition Recommendation 1) Liberalize diet to 2 gm Na diet 2) Ensure high protein 240ml TID 3) Monitor lab values, wt trend, I/O Expected Outcomes/Goals: To gain/maintain dry weight Intake to meet 75% estimated needs FU 3-5 days Body Fat Depletion (Non Severe: Mild Depletion Muscle Mass (Severe): Mod to Severe Depletion Fluid Accumulation (Severe): Moderate Fluid Retention Is there a minimum of two crit: Yes Date of Service: May 25, 2025 Billing Provider: PHILLY WALLS MD Common Visit Codes: [id number] CARE 30-74 MIN GEORGE REICH May 25, 2025 18:10 PHILLY WALLS MD May 27, 2025 12:52
[2025-05-25] MEDS: MIDODRINE HCL 10 MG TAB PO SCH (18:13)
[2025-05-26] VITALS (79 sets, daily range): BP systolic 64–93; BP diastolic 29–59; PULSE 48–91; RESP 10–26; TEMP 96.4–99.1; O2SAT 93–100
[2025-05-26 03:52] LABS: Mean Corpuscular Hemoglobin 31.7 pg (28.0-32.0)
[2025-05-26 03:55] LABS: Hematocrit 24.0 % (36.0-46.0); Hemoglobin 8.1 g/dL (12.2-16.2); Mean Corpuscular Volume 93.6 fL (80.0-100.0); Nucleated Red Blood Cells % 0.0 %
[2025-05-26 04:12] LABS: Anion Gap 12 (5-15); BUN/Creatinine Ratio 26.0 (10.0-20.0); Potassium 3.9 mmol/L (3.5-5.1)
[2025-05-26 04:24] LABS: Alanine Aminotransferase < 9 U/L (7-40); Albumin 2.4 g/dL (3.2-4.8); Alkaline Phosphatase 42 U/L (46-116); Bilirubin, Total 0.2 mg/dL (0.2-1.0); Blood Urea Nitrogen 54 mg/dL (9-23); Calcium 8.0 mg/dL (8.7-10.4); Carbon Dioxide 17 mmol/L (20-31); Chloride 117 mmol/L (98-107); Glucose 74 mg/dL (74-106); Sodium 146 mmol/L (136-145); Total Protein 4.1 g/dL (5.7-8.2)
--- NOTE | 2025-05-26 22:16 | DVHDSRES ---
Discharge Summary Date of Admission Resident Creating Document: GEORGE REICH RESIDENT May 17, 2025 at 21:32 Date of Discharge: May 26, 2025 Admitting Diagnosis septic shock due to bacteremia Wounds: Labs/Diagnostic Data: Laboratory Results Test 05/26/25 03:00 05/25/25 02:30 05/23/25 02:53 05/22/25 03:00 White Blood Count 2.6 10^3/uL (4.4-10.8) Red Blood Count 2.57 10^6/uL (4.0-5.20) Hemoglobin 8.1 g/dL (12.2-16.2) Hematocrit 24.0 % (36.0-46.0) Mean Corpuscular Volume 93.6 fL (80.0-100.0) Mean Corpuscular Hemoglobin 31.7 pg (28.0-32.0) Mean Corpuscular Hemoglobin Concent 33.8 g/dL (32.0-36.0) Red Cell Distribution Width 13.7 % (11.8-14.3) Platelet Count 94 10^3/uL (140-450) Mean Platelet Volume 8.6 fL (6.9-10.8) Neutrophils (%) (Auto) 65.1 % (37.0-80.0) Lymphocytes (%) (Auto) 16.8 % (10.0-50.0) Monocytes (%) (Auto) 10.1 % (0.0-12.0) Eosinophils (%) (Auto) 6.6 % (0.0-7.0) Basophils (%) (Auto) 1.4 % (0.0-2.0) Neutrophils # (Auto) 1.7 10 ^3/uL (1.6-8.6) Lymphocytes # (Auto) 0.4 10 ^3/uL (0.4-5.4) Monocytes # (Auto) 0.3 10 ^3/uL (0-1.3) Eosinophils # (Auto) 0.2 10 ^3/uL (0-0.8) Basophils # (Auto) 0 10 ^3/uL (0-0.2) Nucleated Red Blood Cells 0.0 % Sodium Level 146 mmol/L (136-145) Potassium Level 3.9 mmol/L (3.5-5.1) Chloride Level 117 mmol/L (98-107) Carbon Dioxide Level 17 mmol/L (20-31) Anion Gap 12 (5-15) Blood Urea Nitrogen 54 mg/dL (9-23) Creatinine 2.08 mg/dL (0.550-1.02) Glomerular Filtration Rate Calc 25 mL/min (>90) BUN/Creatinine Ratio 26.0 (10.0-20.0) Serum Glucose 74 mg/dL (74-106) Calcium Level 8.0 mg/dL (8.7-10.4) Total Bilirubin 0.2 mg/dL (0.2-1.0) Aspartate Amino Transferase (AST) 19 U/L (13-40) Alanine Aminotransferase (ALT) < 9 U/L (7-40) Alkaline Phosphatase 42 U/L (46-116) Ammonia 21 umol/L (11-32) Total Protein 4.1 g/dL (5.7-8.2) Albumin 2.4 g/dL (3.2-4.8) Cortisol AM Sample 9.13 ug/dL (5.27-22.45) Prothrombin Time 14.0 sec (9.3-11.8) Prothrombin Time INR 1.36 (0.9-1.15) Activated Partial Thromboplast Time 49.2 SEC (24.5-34.5) Hemoglobin A1c 5.3 % A1C (<5.7) Random Vancomycin Level 22.0 ug/mL (5-10) Test 05/19/25 14:30 05/19/25 02:46 05/18/25 15:13 05/18/25 12:45 Body Fluid Source Ascities fluid Body Fluid pH 8 Body Fluid WBC (Manual) 102 CUMM (0-200) Body Fluid RBC (Manual) 0 CUMM (0-2000) Body Fluid Mononuclear Cells 92 % Body Fluid Polymorphonuclear Cells 8 % (0-25) Body Fluid Glucose 151 mg/dL (.) Body Fluid Total Protein 1.2 g/dL (.) Body Fluid Albumin 0.7 g/dL (Not Estab.) Body Fluid Lactate Dehydrogenase 59 IU/L (.) Magnesium Level 2.1 mg/dL (1.6-2.6) Lactic Acid Level 2.4 mmol/L (0.4-2.0) Urine Color Light-brown (Yellow) Urine Clarity Ex.turbid (Clear) Urine pH 5.5 (5.0-9.0) Urine Specific [place] 1.013 (1.001-1.035) Urine Protein Trace (Negative) Urine Ketones Negative (Negative) Urine Blood 1+ /uL (Negative) Urine Nitrite Negative (Negative) Urine Bilirubin Negative (Negative) Urine Urobilinogen Normal mg/dL (Negative) Urine Leukocyte Esterase 3+ /uL (Negative) Urine RBC 5 /hpf (0 - 4) Urine WBC Clumps Present /hpf (None Seen) Urine Microscopic WBC 741 /HPF (0-5) Urine Squamous Epithelial Cells None seen /hpf (<5) Urine Bacteria Many /hpf (None Seen) Urine Mucus Few (None Seen) Urine Yeast (Budding) Moderate /hpf (None Seen) Urine Glucose Normal mg/dL (Normal) Test 05/18/25 03:35 05/17/25 20:30 05/17/25 16:35 Iron Level 20 ug/dL (50-170) Total Iron Binding Capacity 162 ug/dL (250-425) Percent Iron Saturation 12.3 % (15-50) Ferritin 119.0 ng/mL (10-291) Lipase 22 U/L (12-53) Vitamin B12 Level 141 pg/mL (211-911) Vitamin D 25-Hydroxy 30.6 ng/mL (30.0-100) Folic Acid 11.12 ng/mL (>5.38) Troponin I High Sensitivity 125 ng/L (</=34) Thyroid Stimulating Hormone (TSH) 3.55 uIU/mL (0.55-4.78) POC Glucose 160 mg/dl (70-106) Other Laboratory Tests 05/26/25 03:00 Brief Hx & Hospital Course: This is a 75-year-old female with a history of ESLD of unclear etiology (non- alcoholic, 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 Initial labs revealed hyperammonemia (ammonia 67), elevated lactate (4.3), leukocytosis, and thrombocytopenia. CT findings were consistent with cirrhotic morphology and colitis. UA showed pyuria/hematuria; blood cultures grew Proteus mirabilis. Ascitic fluid analysis revealed PMN <250; no evidence of spontaneous bacterial peritonitis (SBP). The patient was started on broad-spectrum antibiotics (initially vancomycin, cefepime, and metronidazole; later de-escalated to ceftriaxone and metronidazole). The pessary was removed due to concern for local infection. Midodrine and norepinephrine were used for hemodynamic support; however, she was successfully weaned off vasopressors by hospital day 4. She was treated for hepatic encephalopathy with lactulose and rifaximin, and ammonia levels showed downtrend over time. Her course was complicated by bradycardia attributed to hypothermia. A tunneled peritoneal drain placed prior to admission continued to drain large volumes of ascitic fluid. The patient remained hemodynamically stable after vasopressor weaning and did not require mechanical ventilation. A podiatry consult was obtained for heel ulcer, and conservative wound care was advised. Her clinical picture was consistent with multifactorial encephalopathy (hepatic and septic), Proteus UTI/bacteremia, type 2 NSTEMI, and GER on CKD stage 4, likely prerenal and possibly hepatorenal. Discussions with the family highlighted that although she stabilized from a hemodynamic standpoint, her long-term prognosis remained poor given ESLD, chronic renal dysfunction, and frequent infectious complications. Episodes of UTI and decompensation are expected to recur. Discharge Condition: Stable. Off vasopressors. Awake and alert. Tolerating PO. Continuing peritoneal drainage per GI, gastro group. Discharge Disposition: Home with hospice. Extensive discussion held with both daughters. Family understands prognosis and agreed to continue hospice care at home. Follow-Up Plan: Hospice to continue care and monitor for comfort needs. Family educated on natural course of ESLD and possibility of recurrent infections. No further labs or imaging required unless change in condition. No additional subspecialty follow-up planned unless requested by hospice team. Case discussed with Dr Shirley Consults/Reason for consult truck and transport mechanic due to wound obgyn due to pessary infection Operations or Procedures Indication: Suspected abdominal abscess. Thank You! Technique: CT axial images of the abdomen and pelvis are obtained without contrast. Coronal and sagittal reformats were obtained. Radiation Dose Information: CTDI volume is 427.03 mGy. Dose-length product is 419.19 mGy*cm Comparison: CT CT AB PEL WO CON-NO ORAL OR IV on DOS: 01/31/25, FINDINGS: There is limited interpretation of the abdomen and pelvis without administration of intravenous contrast. Lung bases demonstrate bibasilar atelectasis/developing consolidation. Small bilateral pleural effusions. Adrenal glands, spleen and pancreas unremarkable in shape. Cirrhotic morphology liver. Cholelithiasis. Kidneys demonstrate no hydronephrosis / nephrolithiasis. Stomach partially distended. Small bowel loops are normal in caliber. Moderate volume stool in the colon. Bowel wall thickening of the large bowel. Large volume of ascites fluid. Abdominal aortic atherosclerotic disease. There is a tunneled peritoneal catheter which terminates in the left mid abdomen. There is a large scar like density in the pelvic cul-de-sac region, just anterior to the rectum that is radiopaque. [id number] bilateral sacroiliac degenerative joint disease. Moderate to severe thoracolumbar degenerative disc disease. S shaped curvature of the thoracolumbar spine. IMPRESSION: Limited evaluation without contrast. Cirrhotic morphology liver and large volume of ascites fluid. Tunneled peritoneal catheter as described above. There is a large radiopaque density in the pelvis just anterior to the rectum that has square-shaped. Correlate clinically with surgical history and exclude any type of foreign body retention. Bowel wall thickening of the large bowel which can be secondary to portal hypertension related enteropathy, colitis, inflammatory bowel disease. Small bilateral pleural effusions and bibasilar developing consolidation/atelectasis. Cholelithiasis. Soft tissue edema / anasarca. Other findings as described. Condition at Discharge: Stable Final Diagnosis/Problems List #Acute metabolic encephalopathy, likely multifactorial (hepatic encephalopathy vs septic shock) #Hepatic encephalopahty #Dementia baseline? #Septic shock secondary to Proteus mirabilis bacteremia and UTI #NSTEMI type 2 #Bradycardia due to hypothermia #Acute Hypoxic respiratory failure likely secondary to volume resolved overload/pleural effusions and pneumonia resolved #Possible gram positive gram negative pneumonia #[id number] liver failure (ESLD with recurrent ascites) #SBP ruled out #cholelithiasis #Ascites #sp tunneled catheter #Portal hypertension? #GER due to VMN on CKD stage 4? #Possible hepatorenal syndrome #Proteus mirabilis bacteremia (likely UTI source), #UTI with mixed sade, #pessary-related vaginal infection # Anemia (likely chronic, iron deficiency), #thrombocytopenia (PLT 94), INR 1.36 #Diabetes mellitus type 2, hab1c 5.3 #hypokalemia #hypothermia #Pressure ulcers in back and foot: foot necrotic addressed by truck and transport mechanic conservative managment, back stage 1-2, conservative managment Discharge Disposition: Hospice - Home Discharge Instruct/Medications Diet: See Comment Diet comment: hepatic diet Activity: No Restrictions, As Tolerated Follow Up/Referral: per hospice Medications: per hospice, resume home meds Scheduled Ferrous Sulfate (Ferosul), 325 MG PO DAILY, (Reported) Lactulose (Lactulose), 15 GM PO TID, (Reported) Midodrine Hcl (Midodrine Hcl), 10 MG PO BID Rifaximin (Xifaxan), 1 TAB PO BID Sodium Bicarbonate (Sodium Bicarbonate), 650 MG PO TID Spironolactone (Spironolactone), 1 TAB PO DAILY, (Reported) Discharge Statement: "Patient was advised to return to the ER or call 911 if any headaches, dizziness, shortness of breath, chest pain, abdominal pain, bleeding, fevers, or worsening of medical condition. Patient was counseled about treatment plan, medications, possible side effects, patientverbalized understanding. All questions were answered to the best of my ability. This discharge took greater then 30 minutes in planning, reviewing documentation, counseling the patient, and discussing with other team members." ASSESSMENT ASSESSMENT Assessment septic shock due to bacteremia and UTI, resolved End stage liver disease GEORGE REICH RESIDENT May 26, 2025 22:16
--- NOTE | 2025-05-29 13:01 | ECG ---
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
== END 2025-05-26 18:50 | disposition hospice, home (50) | DRG 871 ==
LOC: EDUNIT# 14:25 → ER 14:25 → EDBD 14:25 → OVERFLOW 21:32 → ICU WEST 05-18 16:48
PROVIDERS: ADMIT Internal Medicine Pulmonary Disease; ATTEND Emergency Medicine
PROC: 0W9G3ZZ Drainage of Peritoneal Cavity, Percutaneous Approach (ICD-10-PCS; principal; 2025-05-17)
PROC: 02HV33Z Insertion of Infusion Device into Superior Vena Cava, Percutaneous Approach (ICD-10-PCS; 2025-05-17)
DX: A41.9 Sepsis, unspecified organism (principal); E43 Unspecified severe protein-calorie malnutrition; G92.8 Other toxic encephalopathy; N17.0 Acute kidney failure with tubular necrosis; K76.7 Hepatorenal syndrome; R65.21 Severe sepsis with septic shock; R57.1 Hypovolemic shock; J96.01 Acute respiratory failure with hypoxia; J15.69 Pneumonia due to other Gram-negative bacteria; N18.6 End stage renal disease; I21.A1 Myocardial infarction type 2; J15.9 Unspecified bacterial pneumonia; J90 Pleural effusion, not elsewhere classified; E87.20 Acidosis, unspecified; R18.0 Malignant ascites; D68.9 Coagulation defect, unspecified; I12.0 Hypertensive chronic kidney disease with stage 5 chronic kidney disease or end stage renal disease; L97.428 Non-pressure chronic ulcer of left heel and midfoot with other specified severity; K76.6 Portal hypertension; K72.10 Chronic hepatic failure without coma; K76.82 Hepatic encephalopathy; L89.619 Pressure ulcer of right heel, unspecified stage; F02.80 Dementia in other diseases classified elsewhere, unspecified severity, without behavioral disturbance, psychotic disturbance, mood disturbance, and anxiety; D69.6 Thrombocytopenia, unspecified; K74.60 Unspecified cirrhosis of liver; G30.9 Alzheimer's disease, unspecified; D50.9 Iron deficiency anemia, unspecified; E87.6 Hypokalemia; R00.1 Bradycardia, unspecified; K80.20 Calculus of gallbladder without cholecystitis without obstruction; N76.0 Acute vaginitis; Z82.49 Family history of ischemic heart disease and other diseases of the circulatory system; Z82.3 Family history of stroke; Z82.0 Family history of epilepsy and other diseases of the nervous system; B96.4 Proteus (mirabilis) (morganii) as the cause of diseases classified elsewhere
CPT/HCPCS: 36415; 36556; 49082; 71045; 74176; 76856; 80053; 80202; 81001; 82140; 82306; 82533; 82607; 82728; 82746; 82962; 83036; 83540; 83550; 83605; 83690; 83735; 83986; 84443; 84484; 85025; 85610; 85730; 87040; 87077; 87081; 87086; 87186; 87205; 89051; 93005; 93971; 96365; 96375; 97110; 97163; 97530; 99291; G0378; J0692; J1450; J2405; J2470; J3480; J3490; P9047

== ENCOUNTER 2025-07-14 14:10 | Inpatient (IN) | payer OTHER, MEDICAID ==
[~2025-07-14] VITALS: Ht 160 cm; Wt 54.3 kg
[~2025-07-14 14:10] MED LIST changes: -CEFD300C2 PO; -FURO20TA4 PO; -HYDR-4902 PO; -OMEP1CAP70 PO; -SUCR1TAB31 PO
--- NOTE | 2025-07-14 14:44 | ED.PDOC ---
GI ASSESSMENT HPI Comments This is a 75 year old female BIBA and accompanied by daughter presenting to the ED with chief complaint of abdominal pain. EMS reports patient's abdomen has been increasingly more distended over the past 3 weeks along with 8/10 abdominal burning with associated chest pain, nausea, and vomiting occurring over the past 3 hours. Daughter relays that the patient has history of liver cirrhosis and last had a paracentesis performed 3 weeks ago. Daughter states patient was on hospice before, however, she was taken off of it due to lack of care for the patient. Patient denies any diarrhea, SOB, fever, or chills. Chief Complaint: Abdominal Pain Time Seen by MD: 14:41 Primary Care Provider: KWAMEO Reviewed Notes: Nurses Notes, Plugger Worker Notes, Medications, Allergies Allergies: Coded Allergies: NO KNOWN ALLERGIES (Unverified , 10/14/24) Home Meds Active Scripts Sodium Bicarbonate (Sodium Bicarbonate) 650 Mg Tab, 650 MG PO TID for 14 Days, #42 TAB Prov:JUMANA MANCILLA MD 02/05/25 Rifaximin (Xifaxan) 550 Mg Tab, 1 TAB PO BID, #28 TAB Prov:ABHISHEK FINE MD 01/20/25 Midodrine Hcl (Midodrine Hcl) 10 Mg Tab, 10 MG PO BID, #120 TAB Prov:ABHISHEK FINE MD 01/20/25 Reported Medications Spironolactone (Spironolactone) 25 Mg Tab, 1 TAB PO DAILY for 31 Days, #31 02/01/25 Lactulose (Lactulose) 10 Gm Ceasar, 15 GM PO TID, PACK 02/01/25 Ferrous Sulfate (Ferosul) 325 Mg Tab, 325 MG PO DAILY, TAB 12/13/24 Information Source: Patient, Relative (Child), Emergency Med Personnel Mode of Arrival: EMS Timing: Hours Duration: Since onset Prehospital treatment: None Quality: Burning Vomitus: Watery Stool: Normal Severity: Moderate Recent: None Recent Hx of: Liver Disease Pain Location: Diffuse Modifying Factors: Nothing Associated sign and symptoms: Nausea, Vomiting, Abdominal Pain Past Medical History PAST MEDICAL HISTORY: ESRD, HTN, Liver Surgical History: Denies all surgeries MEDICINE TEACHER History: Denies all MEDICINE TEACHER Hx Family History Family History: Reviewed,noncontributory to illness Social History Smoker: Non-Smoker Alcohol: Denies ETOH Use Drugs: Denies Drug Use Lives In: Home Constitutional: denies: chills, diaphoresis, fatigue, fever, malaise, sweats, weakness, others EENTM: denies: blurred vision, double vision, ear bleeding, ear discharge, ear drainage, ear pain, ear ringing, eye pain, eye redness, hearing loss, mouth pain, mouth swelling, nasal discharge, nose bleeding, nose congestion, nose pain, photophobia, tearing, throat pain, throat swelling, voice changes, others Respiratory: denies: cough, hemoptysis, orthopnea, SOB at rest, shortness of breath, SOB with excertion, stridor, wheezing, others Cardiovascular: reports: chest pain; denies: dizzy spells, diaphoresis, Dyspnea on exertion, edema, irregular heart beat, left arm pain, lightheadedness, palpitations, PND, syncope, others Gastrointestinal: reports: abdomen distended ( ), abdominal pain, nausea, vomiting; denies: blood streaked bowels, constipated, diarrhea, dysphagia, difficulty swallowing, hematemesis, melena, poor appetite, poor fluid intake, rectal bleeding, rectal pain, others Genitourinary: denies: abnormal vagina bleeding, burning, dyspareunia, dysuria, flank pain, frequency, hematuria, incontinence, pain, , vagina discharge, urgency, others Neurological: denies: dizziness, fainting, headache, left sided numbness, left sided weakness, numbness, paresthesia, pre-existing deficit, right sided numbness, right sided weakness, seizure, speech problems, tingling, tremors, weakness, others Musculoskeletal: denies: back pain, gout, joint pain, joint swelling, muscle pain, muscle stiffness, neck pain, others Integumetry: denies: bruises, change in color, change in hair/nails, dryness, laceration, lesions, lumps, rash, wounds, others Allergic/Immunocompromised: denies: Difficulty Healing, Frequent Infections, Hives, Itching, others Hematologic/Lymphatic: denies: anemia, blood clots, easy bleeding, easy bruising, swollen glands, others Endocrine: denies: excessive hunger, excessive sweating, excessive thirst, excessive urination, flushing, intolerance to cold, intolerance to heat, unexplained weight gain, unexplained weight loss, others Psychiatric: denies: anxiety, bipolar disorder, depression, hopeless, panic disorder, schizophrenia, sleepless, suicidal, others All Other Systems: Reviewed and Negative Physical Exam General Appearance: Moderate Distress, Thin HEENT: Normal ENT Inspection, Pharynx Normal, TMs Normal Neck: Full Range of Motion, Non-Tender, Normal, Normal Inspection Respiratory: Chest Non-Tender, Lungs Clear, No Accessory Muscle Use, No Respiratory Distress, Normal Breath Sounds Cardiovascular: No Edema, No JVD, No Murmur, No Gallop, Normal Peripheral Pulses, Regular Rate/Rhythm Breast Exam: Deferred Gastrointestinal: Distended, No Organomegaly, Non Tender, No Pulsatile Mass, Normal Bowel Sounds, Soft Genitalia: Deferred Pelvic: Deferred Rectal: Deferred Extremities: No calf tenderness, Non-tender, No pedal edema Musculoskeletal : Apperance: Normal Neurologic: Alert, colorer machine II-XII nml as Tested, No Motor Deficits, Normal Affect, Normal Mood, No Sensory Deficits Cerebellar Function: NOT DONE Reflexes: NOT DONE Skin: Dry, Pallor, Warm Peripheral Pulses: 3+ Radial (R), 3+ Radial (L) Lymphatic: No Adenopathy Was a procedure done? Was a procedure done?: No GI differential Dx Differential Diagnosis: Constipation, Diverticular disease, Esophagitis, Gastritis/PUD, Gastroenteritis X-Ray, Labs, Meds, VS Vital Signs Date Time Temp Pulse Resp B/P (MAP) Pulse Ox O2 Delivery O2 Flow Rate FiO2 07/14/25 15:30 96 Room Air* 0 21 07/14/25 15:15 107 20 96 Room Air* 0 21 07/14/25 15:14 98.3 107 20 123/83 (96) 96 98.3 07/14/25 14:14 97.6 113 20 99/66 94 97.6 Lab Test 07/14/25 15:09 Range/Units POC Glucose 156 H 70-106 mg/dl Patient abdomen is distended. She has not had paracentesis. Blood pressure within normal limits. Heart rate is increased. Blood sugar elevated. She does have liver disease with ascites. Continue monitoring. Time of 1ST Reevaluation: 15:40 Reevaluation 1ST: Unchanged Patient Education/Counseling: Diagnosis, Treatment Family Education/Counseling: No Family Present SEPSIS Sepsis Screen Date sepsis recognized/suspect: Jul 14, 2025 Time Sepsis recognized/suspect: 1414 Recent Procedure: No On Antibiotic Therapy: No Respiratory Rate >20: No Heart Rate >90: Yes Temp<36 C (96.8 F) or >38.3 C: No SBP <90 or MAP <65 mmHG: No New Acute Mental Status Change: No Is the patient on CPAP, BIPAP,: No Vital Signs Date Time Temp Pulse Resp B/P (MAP) Pulse Ox O2 Delivery O2 Flow Rate FiO2 07/14/25 15:30 96 Room Air* 0 21 07/14/25 15:15 107 20 96 Room Air* 0 21 07/14/25 15:14 98.3 107 20 123/83 (96) 96 98.3 07/14/25 14:14 97.6 113 20 99/66 94 97.6 Departure 1 Departure Time of Disposition: 16:41 Impression: Primary Impression: Cirrhosis of liver with ascites Qualified Codes: K70.31 - Alcoholic cirrhosis of liver with ascites Disposition: ADMITTED INPATIENT Admit to: Med Surg Condition: Guarded Critical Care Note Critical Care Time?: Yes (90 min-critical care time only) Stability Stability form required: No Heart Score Heart Score: Heart Score Response (Comments) Value History N/A 0 EKG N/A 0 Age N/A 0 Risk Factors N/A 0 Troponin N/A 0 Total 0 I personally scribed for BERE BENDER MD ([email or web address]) on 07/14/25 at 14:44. Electronically submitted by Ari Michael ([email or web address]). BERE BENDER MD Jul 14, 2025 14:44
[2025-07-14 15:15] VITALS: PULSE 107; RESP 20; O2SAT 96
--- NOTE | 2025-07-14 17:02 | DVH ---
Technique: Real-time ultrasound imaging of the abdomen was performed with grayscale imaging Indication: FLUID CHECK Comparison: US ABDOMEN LIMITED on DOS: 01/19/25, Findings: Large volume of ascites fluid. Impression: Large volume of ascites fluid
[2025-07-14 17:07] LABS: Hematocrit 32.2 % (36.0-46.0); Hemoglobin 11.1 g/dL (12.2-16.2); Mean Corpuscular Hemoglobin 32.6 pg (28.0-32.0); Mean Corpuscular Volume 94.8 fL (80.0-100.0); Nucleated Red Blood Cells % 0.1 %
[2025-07-14 17:24] LABS: INR 1.08 (0.9-1.15); Prothrombin Time 11.4 sec (9.3-11.8)
[2025-07-14 17:25] LABS: Alanine Aminotransferase 16 U/L (7-40); Alkaline Phosphatase 92 U/L (46-116); Carbon Dioxide 24 mmol/L (20-31); Chloride 104 mmol/L (98-107)
[2025-07-14 17:26] LABS: Albumin 2.4 g/dL (3.2-4.8); Anion Gap 13 (5-15); BUN/Creatinine Ratio 33.9 (10.0-20.0); Bilirubin, Total 0.4 mg/dL (0.2-1.0); Blood Urea Nitrogen 59 mg/dL (9-23); Calcium 7.6 mg/dL (8.7-10.4); Glucose 143 mg/dL (74-106); Potassium 3.9 mmol/L (3.5-5.1); Sodium 141 mmol/L (136-145); Total Protein 5.6 g/dL (5.7-8.2)
[2025-07-14] MEDS ORDERED: ONDANSETRON HCL 4 MG/2 ML VIAL IV PRN (21:30)
[2025-07-14] MEDS ORDERED: IBUPROFEN 600 MG TAB PO PRN (21:30)
[2025-07-14] MEDS ORDERED: DEXTROSE (50%) 50ML SYRG IV PRN (21:30)
[2025-07-14] MEDS ORDERED: DOCUSATE SOD 100 MG CAP PO PRN (21:30)
--- NOTE | 2025-07-14 21:49 | DVHHP2 ---
History of Present Illness Reason for Visit: Cirrhosis of liver with ascites History of Present Illness The patient is a 75-year-old female with past medical history of end-stage renal disease on peritoneal dialysis, hypertension, and liver disease who presented to [facility] ED with complaint of abdominal pain. Patient reports she has been having abdominal distention, associated with nausea, vomiting, chest pressure, getting worse that prompted this visit. Patient reports last paracentesis 3 weeks ago. Patient was seen and evaluated in the ED, laboratory data shows WBC 3.9, hemoglobin 11.1, hematocrit 32.2, platelets 164, sodium 141, potassium 3.9, BUN 59, creatinine 1.74, glucose 143, calcium 7.6, protein 2.6, albumin 2.4, blood pressure 97/71, heart rate 94, temperature 97.9 F, O2 saturation 96% on room air. Abdomen/pelvis CT revealing large volume of ascites fluid. Please see medication orders section in the computer. On my assessment, patient denied chest pain, no headache, no dizziness, no diaphoresis, no diarrhea, no nausea or vomiting at this moment, no fever, no chills. Patient was admitted for further evaluation and medical management. Past Medical History ESRD, HTN, Liver disease Past Surgical History Denies all surgeries Family History Reviewed, noncontributory to the management of this case. Past Social History The patient lives at home, denies smoking, alcohol or illicit drugs abuse. Review of Systems Constitutional: Yes: Weakness; No: Fever, Chills, Sweats, Malaise, Other Eyes: No: Pain, Vision change, Conjunctivae inflammation, Eyelid inflammation, Other, Redness ENT: No: Ear pain, Ear discharge, Nose pain, Nose discharge, Nose congestion, Mouth pain, Mouth swelling, Throat pain, Throat swelling, Other Respiratory: No: Cough, Dry, Shortness of breath, SOB with excertion, Wheezing, Hemoptysis, Pleuritic Pain, Sputum, Wheezing, Other Cardiovascular: Chest Pain; No: Palpitations, Orthopnea, Paroxysmal Noc. Dyspnea, Edema, Lt Headedness, Other Gastrointestinal: Nausea, Vomiting, Abdominal Pain, Other (Abdominal distention); No: Diarrhea, Constipation, Melena, Hematochezia Genitourinary: No Dysuria, No Frequency, No Incontinence, No Hematuria, No Retention; Other (Peritoneal dialysis ) Musculoskeletal: No: other, neck pain, shoulder pain, arm pain, back pain, hand pain, leg pain, foot pain Skin: No: Rash, Lesions, Jaundice, Bruising, Other Neurological: No: Weakness, Numbness, Incoordination, Change in speech, Confusion, Seizures, Other Allergies: Coded Allergies: NO KNOWN ALLERGIES (Unverified , 10/14/24) Medications Current Medications Medications Dose Ordered Sig/Leti Route Start Time Stop Time Status Last Admin Dose Admin Midodrine 10 mg TID@0600,1200,1800 PO 07/15/25 06:00 Lactulose 30 ml BID PO 07/14/25 22:00 Spironolactone 25 mg DAILY PO 07/15/25 10:00 Ibuprofen 400 mg Q6HP PRN PO 07/14/25 21:30 Hold Diagnostic Test (Pha) 1 strip ACHS 07/14/25 22:00 Insulin Human Regular ACHS SC 07/14/25 22:00 Dextrose 50 ml UD PRN IV 07/14/25 21:30 Sodium Chloride 10 ml Q8HR IV 07/14/25 22:00 Acetaminophen/ Hydrocodone Bitart 1 tab Q4HP PRN PO 07/14/25 21:30 Ondansetron HCl 4 mg Q4HP PRN IV 07/14/25 21:30 Docusate Sodium 100 mg BIDPRN PRN PO 07/14/25 21:30 Exam Vital Signs Vital Signs Date Time Temp Pulse Resp B/P (MAP) Pulse Ox O2 Delivery O2 Flow Rate FiO2 07/14/25 20:00 97.9 94 20 97/71 (80) 96 97.9 07/14/25 15:30 Room Air* 0 21 General Appearance: Alert, Oriented X3, Cooperative, No acute distress HEENT: Atraumatic, PERRLA, EOMI, Mucous membr. moist/pink Respiratory: Normal air movement Cardiovascular: Regular rate, Normal S1, Normal S2, No murmurs Abdominal: Normal bowel sounds, Soft, No hepatospenomegaly, No masses, Other (Distended abdomen) Extremities: No clubbing, No cyanosis, No edema, Normal pulses, No tend erness/swelling Skin: No rashes, No significant lesion Neuro: Normal speech, Normal tone, Sensation intact, Cranial nerves 3-12 NL, Reflexes 2+, Other (Generalized weakness) Psych/Mental Status: Mental status NL, Mood NL Labs/Xrays Labs Test 07/14/25 16:51 07/14/25 15:09 Range/Units White Blood Count 3.9 L 4.4-10.8 10^3/uL Red Blood Count 3.40 L 4.0-5.20 10^6/uL Hemoglobin 11.1 L 12.2-16.2 g/dL Hematocrit 32.2 L 36.0-46.0 % Mean Corpuscular Volume 94.8 80.0-100.0 fL Mean Corpuscular Hemoglobin 32.6 H 28.0-32.0 pg Mean Corpuscular Hemoglobin Concent 34.4 32.0-36.0 g/dL Red Cell Distribution Width 17.5 H 11.8-14.3 % Platelet Count 164 140-450 10^3/uL Mean Platelet Volume 8.2 6.9-10.8 fL Neutrophils (%) (Auto) 85.8 H 37.0-80.0 % Lymphocytes (%) (Auto) 6.9 L 10.0-50.0 % Monocytes (%) (Auto) 6.2 0.0-12.0 % Eosinophils (%) (Auto) 0.7 0.0-7.0 % Basophils (%) (Auto) 0.4 0.0-2.0 % Neutrophils # (Auto) 3.3 1.6-8.6 10 ^3/uL Lymphocytes # (Auto) 0.3 L 0.4-5.4 10 ^3/uL Monocytes # (Auto) 0.2 0-1.3 10 ^3/uL Eosinophils # (Auto) 0 0-0.8 10 ^3/uL Basophils # (Auto) 0 0-0.2 10 ^3/uL Nucleated Red Blood Cells 0.1 % Prothrombin Time 11.4 9.3-11.8 sec Prothrombin Time INR 1.08 0.9-1.15 Sodium Level 141 136-145 mmol/L Potassium Level 3.9 3.5-5.1 mmol/L Chloride Level 104 98-107 mmol/L Carbon Dioxide Level 24 20-31 mmol/L Anion Gap 13 5-15 Blood Urea Nitrogen 59 H 9-23 mg/dL Creatinine 1.74 H 0.550-1.02 mg/dL Glomerular Filtration Rate Calc 30 >90 mL/min BUN/Creatinine Ratio 33.9 H 10.0-20.0 Serum Glucose 143 H 74-106 mg/dL Calcium Level 7.6 L 8.7-10.4 mg/dL Total Bilirubin 0.4 0.2-1.0 mg/dL Aspartate Amino Transferase (AST) 31 13-40 U/L Alanine Aminotransferase (ALT) 16 7-40 U/L Alkaline Phosphatase 92 46-116 U/L Total Protein 5.6 L 5.7-8.2 g/dL Albumin 2.4 L 3.2-4.8 g/dL POC Glucose 156 H 70-106 mg/dl PATIENT: GEORGE ZUNIGA ACCT: [id number] UNIT: [id number] : 1950 LOC: ER ROOM / BED: / AGE / SEX: 75 / F ADM STATUS: REG ER SERVICE 0000 ORDERING PHYSICIAN: BERE BENDER MD PROCEDURE(s): ABDL - ABDOMEN LIMITED REASON: FLUID CHECK ORDER NUMBER(s): [id number], ACCESSION NUMBER(s): [id number] Technique: Real-time ultrasound imaging of the abdomen was performed with grayscale imaging Indication: FLUID CHECK Comparison: US ABDOMEN LIMITED on DOS: 01/19/25, Findings: Large volume of ascites fluid. Impression: Large volume of ascites fluid SEPSIS Sepsis Screen Date sepsis recognized/suspect: Jul 14, 2025 Time Sepsis recognized/suspect: 1529 Recent Procedure: No On Antibiotic Therapy: No Respiratory Rate >20: No Heart Rate >90: No Temp<36 C (96.8 F) or >38.3 C: No SBP <90 or MAP <65 mmHG: No New Acute Mental Status Change: No Is the patient on CPAP, BIPAP,: No Physician Orders Urinalysis (07/14/25 16:34) Abdomen Limited (07/14/25 ) Paracentesis (07/17/25 08:00) Midodrine Tablet (Proamatine Tablet) (07/15/25 06:00) Lactulose Oral (07/14/25 22:00) Spironolactone (Aldactone) (07/15/25 10:00) Ibuprofen Tablet (Motrin Tablet) (07/14/25 21:30) Glucose Blood (Accu-Chek Comfort Curve T (07/14/25 22:00) Insulin R (Human) (Insulin R) (07/14/25 22:00) Dextrose 50% Syringe (07/14/25 21:30) Allergies (07/14/25:) Code Status (07/14/25:) Renal Standard(2gna,3gk,Lopho) (07/15/25 Breakfast) Sodium Chloride Lock (Saline Lock Ns) (07/14/25 22:00) Oxygen Per Hour (07/14/25:) Hydrocodone-Acet 5/325mg Tab ([place] 5/32 (07/14/25 21:30) Ondansetron Hcl (Zofran) (07/14/25 21:30) Docusate Sodium Capsule (Colace Capsule) (07/14/25 21:30) Fall Risk Precautions In Place QSHIFT (07/14/25:) Complete Blood Count (07/15/25 04:00) Comprehensive Metabolic Panel (07/15/25 04:00) Condition: Serious (07/14/25:) Maintain Bed Rest (07/14/25:) Sequential Compression Device (07/14/25 ) Pharmacy Clarification: (07/14/25 21:44) *Dr. Deborah Ascencio -Da Mirian (07/14/25 21:46) Admit (07/14/25 21:46) Nitroglycerin Sublingual (Ntrostat Subli (07/14/25 22:00) Morphine Sulfate Injection (07/14/25 22:00) Stat Ekg For Chest Pain (07/14/25 21:46) Notify Md Of Changes From Base (07/14/25 21:46) Import Clerk For 24 Hours (07/14/25 21:46) Emergency Dysrhythmia Protocol (07/14/25 21:46) Rhythm Strips Once Every Shift (07/14/25 21:46) Oxygen By Nasal Cannula (07/14/25 21:46) Vital Signs Date Time Temp Pulse Resp B/P (MAP) Pulse Ox O2 Delivery O2 Flow Rate FiO2 07/14/25 20:00 97.9 94 20 97/71 (80) 96 97.9 07/14/25 18:00 102 20 88/65 (73) 95 07/14/25 16:00 101 20 102/72 (82) 94 07/14/25 15:30 96 Room Air* 0 21 07/14/25 15:15 107 20 96 Room Air* 0 21 07/14/25 15:14 98.3 107 20 123/83 (96) 96 98.3 07/14/25 14:14 97.6 113 20 99/66 94 97.6 Laboratory Tests Test 07/14/25 16:51 White Blood Count 3.9 10^3/uL (4.4-10.8) L Assessment/Plan Assessment/Plan Cirrhosis of liver with ascites Alcoholic cirrhosis of liver with ascites Electrolyte imbalance Generalized weakness Anemia of chronic disease End-stage renal disease on peritoneal dialysis Plan 1. Admit to telemetry unit 2. Breathing treatment 3. Pain control management 4. Management of fluids and electrolytes 5. Consultation for Nephrology 6. Diagnostic tests single organ ultrasound 7. DVT prophylaxis-on SCDs 8. Repeat labs CBC, CMP in a.m. 9. Continue with current medical management 10. Treatment plan discussed with patient and RN. Patient verbalized understanding. Plan discussed with: Patient, Other (RN) My Orders Orders - MALLORY PEDRO DNP Procedure Category Date Status Time Midodrine Tablet PHA 07/15/25 In Process (Proamatine Tablet) 06:00 Lactulose Oral PHA 07/14/25 In Process 22:00 Spironolactone PHA 07/15/25 In Process (Aldactone) 10:00 Ibuprofen Tablet PHA 07/14/25 In Process (Motrin Tablet) 21:30 Glucose Blood PHA 07/14/25 In Process (Accu-Chek Comfort 22:00 Insulin R (Human) PHA 07/14/25 In Process (Insulin R) 22:00 Dextrose 50% Syringe PHA 07/14/25 In Process 21:30 Allergies ARCHANA 07/14/25 In Process 21:27 Code Status CODE 07/14/25 Transmitted 21:27 Renal DIET 07/15/25 Transmitted Standard(2gna,3gk,Lopho) Breakfast Sodium Chloride Lock PHA 07/14/25 In Process (Saline Lock Ns) 22:00 Oxygen Per Hour RT 07/14/25 Transmitted 21:27 Hydrocodone-Acet PHA 07/14/25 In Process 5/325mg Tab ([place] 21:30 Ondansetron Hcl PHA 07/14/25 In Process (Zofran) 21:30 Docusate Sodium PHA 07/14/25 In Process Capsule (Colace 21:30 Fall Risk Precautions [facility] 07/14/[address] 21:27 Complete Blood Count LAB 07/15/25 Verified 04:00 Comprehensive LAB 07/15/25 Verified Metabolic Panel 04:00 Condition: Serious [facility] 07/14/25 In Process 21:27 Maintain Bed Rest [facility] 07/14/25 In Process 21:27 Sequential [facility] 07/14/25 In Process Compression Device Pharmacy [facility] 07/14/25 In Process Clarification: 21:44 *Dr. Deborah Ascencio -Da CONS 07/14/25 Verified Mirian 21:46 Admit ADMIT 07/14/25 Verified 21:46 Nitroglycerin [facility] 07/14/25 Verified Sublingual (Ntrostat 22:00 Morphine Sulfate [facility] 07/14/25 Verified Injection 22:00 Stat Ekg For Chest [facility] 07/14/25 Verified Pain 21:46 Notify Md Of Changes [facility] 07/14/25 Verified From Base 21:46 Import Clerk For [facility] 07/14/25 Verified 24 Hours 21:46 Emergency Dysrhythmia [facility] 07/14/25 Verified Protocol 21:46 Rhythm Strips Once [facility] 07/14/25 Verified Every Shift 21:46 Oxygen By Nasal RT 07/14/25 Verified Cannula 21:46 Problem List: (1) Cirrhosis of liver with ascites (2) Alcoholic cirrhosis of liver with ascites (3) Electrolyte imbalance (4) Generalized weakness (5) Anemia of chronic disease (6) End-stage renal disease on peritoneal dialysis Date of Service: Jul 14, 2025 Billing Provider: MALLORY PEDRO DNP Common Visit Codes: [id number] INP/OBS CARE (HIGH) MALLORY PEDRO DNP Jul 14, 2025 21:49
[2025-07-14] MEDS: InsuLIN REG 1unit/0.01ml Soln (100units/ml) SC SCH (22:00)
[2025-07-14] MEDS ORDERED: MORPHINE SULFATE INJ 2 MG/ml SYRG IV PRN (22:00)
[2025-07-14] MEDS ORDERED: NITROGLYCERIN 0.4 MG SL TAB SL PRN (22:00)
[2025-07-14] MEDS: SODIUM CHLOR 0.9% PF (SALINE LOCK) 10ML VIAL/SYR IV SCH (22:18)
[2025-07-14] MEDS: ACCU-CHEK COMFORT CURVE STRIP VI SCH (22:19)
[2025-07-14] MEDS: LACTULOSE 20Gm/30ML SOLN PO SCH (22:20)
[2025-07-14] MEDS: CALCIUM GLUC 1,000mg/50ml-NS 50 ML IV ONE (22:47)
[2025-07-14] MEDS: ALBUMIN 25% 100 ML IV ONE (22:47)
[2025-07-15] VITALS (9 sets, daily range): BP systolic 91–110; BP diastolic 58–70; PULSE 42–88; RESP 15–21; TEMP 96.8–98.2; O2SAT 94–98
[2025-07-15] MEDS: MIDODRINE HCL 10 MG TAB PO ONE (01:48)
[2025-07-15 04:52] LABS: Hematocrit 29.8 % (36.0-46.0); Hemoglobin 9.9 g/dL (12.2-16.2); Mean Corpuscular Hemoglobin 32.3 pg (28.0-32.0); Mean Corpuscular Volume 97.0 fL (80.0-100.0); Nucleated Red Blood Cells % 0.2 %
[2025-07-15 05:05] LABS: Alanine Aminotransferase 13 U/L (7-40); Alkaline Phosphatase 64 U/L (46-116); Anion Gap 12 (5-15); BUN/Creatinine Ratio 28.2 (10.0-20.0); Bilirubin, Total 0.6 mg/dL (0.2-1.0); Carbon Dioxide 25 mmol/L (20-31); Chloride 104 mmol/L (98-107); Glucose 96 mg/dL (74-106); Potassium 3.6 mmol/L (3.5-5.1); Sodium 141 mmol/L (136-145)
[2025-07-15 05:08] LABS: Albumin 2.5 g/dL (3.2-4.8); Blood Urea Nitrogen 49 mg/dL (9-23); Calcium 8.2 mg/dL (8.7-10.4); Total Protein 5.4 g/dL (5.7-8.2)
[2025-07-15] MEDS: MIDODRINE HCL 10 MG TAB PO SCH (05:43)
[2025-07-15] MEDS: SPIRONOLACTONE 25 MG TAB PO SCH (09:19)
--- NOTE | 2025-07-15 10:45 | DVHINCON2 ---
Date of service: Jul 15, [address] Castle Reason for Consultation Acute kidney injury History of Present Illness Patient is a 75-year-old female with past medical history of end-stage liver disease and ascites with a history of peritoneal drainage patient brought in by her daughter because of increased abdominal distention and pain daughter stated that the peritoneal drain is broken and she could not drain her ascites at home. On admission patient found to have elevated BUN creatinine nephrology is consulted Past Medical History End-stage liver cirrhosis Past Surgical History Peritoneal drain Allergies: Coded Allergies: NO KNOWN ALLERGIES (Unverified , 10/14/24) Home Meds Active Scripts Sodium Bicarbonate (Sodium Bicarbonate) 650 Mg Tab, 650 MG PO TID for 14 Days, #42 TAB Prov:JUMANA MANCILLA MD 02/05/25 Rifaximin (Xifaxan) 550 Mg Tab, 1 TAB PO BID, #28 TAB Prov:ABHISHEK FINE MD 01/20/25 Midodrine Hcl (Midodrine Hcl) 10 Mg Tab, 10 MG PO BID, #120 TAB Prov:ABHISHEK FINE MD 01/20/25 Reported Medications Spironolactone (Spironolactone) 25 Mg Tab, 1 TAB PO DAILY for 31 Days, #31 02/01/25 Lactulose (Lactulose) 10 Gm Ceasar, 15 GM PO TID, PACK 02/01/25 Ferrous Sulfate (Ferosul) 325 Mg Tab, 325 MG PO DAILY, TAB 12/13/24 Current Medications Current Medications Medications (Trade) Dose Ordered Sig/Leti Route PRN Reason Start Time Stop Time Status Last Admin Midodrine (Proamatine Tablet) 10 mg TID@0600,1200,1800 PO 07/15/25 06:00 07/15/25 05:43 Lactulose 30 ml BID PO 07/14/25 22:00 07/15/25 09:21 Spironolactone (Aldactone) 25 mg DAILY PO 07/15/25 10:00 07/15/25 09:19 Ibuprofen (Motrin Tablet) 400 mg Q6HP PRN PO PAIN SCALE 1-3 OR TEMP>100.4 07/14/25 21:30 Hold Diagnostic Test (Pha) (Accu-Chek Comfort Curve T) 1 strip ACHS 07/14/25 22:00 07/15/25 06:10 Insulin Human Regular (InsuLIN R) ACHS SC 07/14/25 22:00 Dextrose 50 ml UD PRN IV Blood Sugar LESS THAN 60 07/14/25 21:30 Sodium Chloride (Saline Lock Ns) 10 ml Q8HR IV 07/14/25 22:00 07/15/25 05:41 Acetaminophen/ Hydrocodone Bitart ([place] 5/325MG Tab) 1 tab Q4HP PRN PO MODERATE PAIN (4-6 PAIN SCALE) 07/14/25 21:30 Ondansetron HCl (Zofran) 4 mg Q4HP PRN IV NAUSEA / VOMITING 07/14/25 21:30 Docusate Sodium (Colace Capsule) 100 mg BIDPRN PRN PO FOR CONSTIPATION 07/14/25 21:30 Nitroglycerin (Ntrostat Sublingual) 0.4 mg Q5MINP PRN SL FOR CHEST PAIN 07/14/25 22:00 Morphine Sulfate 2 mg Q30M PRN IV FOR CHEST PAIN 07/14/25 22:00 Family History: Alzheimer's disease Cerebrovascular accident (CVA) G8 SISTER G8 SISTER Hypertension G8 SISTER G8 SISTER Review of Systems All 12 item review of systems reviewed with the patient nonsignificant except what is mentioned in the history of present illness H&P Exam Vital Signs/I&O Vital Sign Date Time Temp Pulse Resp B/P (MAP) Pulse Ox O2 Delivery O2 Flow Rate FiO2 07/15/25 09:00 97.5 71 15 93/59 (70) 94 97.5 07/15/25 08:20 Room Air* 0 21 Physical Exam Patient is a cachectic lying in bed appears in no acute distress Lungs clear to auscultation bilaterally Cardiac exam regular rate and rhythm GI abdomen distended was normal Extremities no clubbing cyanosis or edema Neuro patient is awake and alert Labs/Diagnostic Data Labs/Diagnostic Data Laboratory Tests Test 07/15/25 05:39 07/15/25 04:10 07/14/25 22:18 07/14/25 16:51 Range/Units POC Glucose 93 109 H 70-106 mg/dl White Blood Count 3.3 L 3.9 L 4.4-10.8 10^3/uL Red Blood Count 3.07 L 3.40 L 4.0-5.20 10^6/uL Hemoglobin 9.9 L 11.1 L 12.2-16.2 g/dL Hematocrit 29.8 L 32.2 L 36.0-46.0 % Mean Corpuscular Volume 97.0 94.8 80.0-100.0 fL Mean Corpuscular Hemoglobin 32.3 H 32.6 H 28.0-32.0 pg Mean Corpuscular Hemoglobin Concent 33.3 34.4 32.0-36.0 g/dL Red Cell Distribution Width 17.5 H 17.5 H 11.8-14.3 % Platelet Count 135 L 164 140-450 10^3/uL Mean Platelet Volume 8.1 8.2 6.9-10.8 fL Neutrophils (%) (Auto) 70.2 85.8 H 37.0-80.0 % Lymphocytes (%) (Auto) 13.2 6.9 L 10.0-50.0 % Monocytes (%) (Auto) 9.8 6.2 0.0-12.0 % Eosinophils (%) (Auto) 5.8 0.7 0.0-7.0 % Basophils (%) (Auto) 1.0 0.4 0.0-2.0 % Neutrophils # (Auto) 2.3 3.3 1.6-8.6 10 ^3/uL Lymphocytes # (Auto) 0.4 0.3 L 0.4-5.4 10 ^3/uL Monocytes # (Auto) 0.3 0.2 0-1.3 10 ^3/uL Eosinophils # (Auto) 0.2 0 0-0.8 10 ^3/uL Basophils # (Auto) 0 0 0-0.2 10 ^3/uL Nucleated Red Blood Cells 0.2 0.1 % Sodium Level 141 141 136-145 mmol/L Potassium Level 3.6 3.9 3.5-5.1 mmol/L Chloride Level 104 104 98-107 mmol/L Carbon Dioxide Level 25 24 20-31 mmol/L Anion Gap 12 13 5-15 Blood Urea Nitrogen 49 #H 59 H 9-23 mg/dL Creatinine 1.74 H 1.74 H 0.550-1.02 mg/dL Glomerular Filtration Rate Calc 30 30 >90 mL/min BUN/Creatinine Ratio 28.2 H 33.9 H 10.0-20.0 Serum Glucose 96 143 H 74-106 mg/dL Calcium Level 8.2 L 7.6 L 8.7-10.4 mg/dL Total Bilirubin 0.6 0.4 0.2-1.0 mg/dL Aspartate Amino Transferase (AST) 27 31 13-40 U/L Alanine Aminotransferase (ALT) 13 16 7-40 U/L Alkaline Phosphatase 64 92 46-116 U/L Total Protein 5.4 L 5.6 L 5.7-8.2 g/dL Albumin 2.5 L 2.4 L 3.2-4.8 g/dL Prothrombin Time 11.4 9.3-11.8 sec Prothrombin Time INR 1.08 0.9-1.15 Test 07/14/25 15:09 Range/Units POC Glucose 156 H 70-106 mg/dl Assessment Acute kidney injury superimposed Chronic Kidney Disease secondary hemodynamic mediated Decompensated liver cirrhosis Ascites Hypotension Anemia of chronic kidney disease Recommendation Closely monitor fluid and electrolytes Avoid nephrotoxic medication Strict I&Os Albumin IV piggyback Midodrine 10 mg p.o. t.i.d. Octreotide Paracentesis Check urine analysis urine electrolytes and protein excretion Check kidney ultrasound We will continue to follow Patient seen and examined by myself. I discussed my plan of care with the patient, her daughter and the primary nurse at the bedside I would like to thank Dr. acstle for the consult, will follow up Plan discussed with: Patient, Daughter ZAINAB QUIJANO MD Jul 15, 2025 10:45
[2025-07-15 11:12] LABS: Magnesium 2.3 mg/dL (1.6-2.6)
--- NOTE | 2025-07-15 11:20 | DVH ---
Renal ultrasound HISTORY: elieser TECHNIQUE: 2 D ultrasound was performed with transaxial and longitudinal images. FINDINGS: The kidneys are echogenic. Right kidney measures 7 cm and left kidney measures 6.5 cm. No r enal masses, stones or hydronephrosis. Urinary bladder unremarkable. Ascites is present in the pelvis and lower abdomen IMPRESSION: 1. No evidence of obstruction. 2. Renal atrophy 3. Ascites.
[2025-07-15 13:10] LABS: Protein, Urine 7.8 mg/dL (1-14)
--- NOTE | 2025-07-15 13:17 | DVHPN2 ---
Reviewed: Care Plan, H&P, Labs, Medications, Previous Orders, Radiology Changes from previous H/P or p: No Changes Eyes: No Pain, No Vision change, No Conjunctivae inflammation, No Eyelid inflammation, No Other, No Redness ENT: No Ear pain, No Ear discharge, No Nose pain, No Nose discharge, No Nose congestion, No Mouth pain, No Mouth swelling, No Throat pain, No Throat swelling, No Other Cardiovascular: Chest Pain; No Palpitations, No Orthopnea, No Paroxysmal Noc. Dyspnea, No Edema, No Lt Headedness, No Other Respiratory: No Cough, No Dry, No Shortness of breath, No SOB with excertion, No Wheezing, No Hemoptysis, No Pleuritic Pain, No Sputum, No Other Gastrointestinal: Nausea, Vomiting, Abdominal Pain; No Diarrhea, No Constipation, No Melena, No Hematochezia; Other (Abdominal distention) Genitourinary: No Dysuria, No Frequency, No Incontinence, No Hematuria, No Retention; Other (Peritoneal dialysis ) Musculoskeletal: No other, No neck pain, No shoulder pain, No arm pain, No back pain, No hand pain, No leg pain, No foot pain Skin: No Rash, No Lesions, No Jaundice, No Bruising, No Other Objective Vitals Vital Signs Date Time Temp Pulse Resp B/P (MAP) Pulse Ox O2 Delivery O2 Flow Rate FiO2 07/15/25 13:00 97.5 61 15 106/68 (81) 98 97.5 07/15/25 08:20 Room Air* 0 21 Medications Current Medications Medications Dose Ordered Sig/Leti Route Start Time Stop Time Status Last Admin Dose Admin Midodrine 10 mg TID@0600,1200,1800 PO 07/15/25 06:00 07/15/25 11:28 10 MG Lactulose 30 ml BID PO 07/14/25 22:00 07/15/25 09:21 30 ML Spironolactone 25 mg DAILY PO 07/15/25 10:00 07/15/25 09:19 25 MG Ibuprofen 400 mg Q6HP PRN PO 07/14/25 21:30 Hold Diagnostic Test (Pha) 1 strip ACHS 07/14/25 22:00 07/15/25 11:28 1 STRIP Insulin Human Regular ACHS SC 07/14/25 22:00 Dextrose 50 ml UD PRN IV 07/14/25 21:30 Sodium Chloride 10 ml Q8HR IV 07/14/25 22:00 07/15/25 05:41 10 ML Acetaminophen/ Hydrocodone Bitart 1 tab Q4HP PRN PO 07/14/25 21:30 Ondansetron HCl 4 mg Q4HP PRN IV 07/14/25 21:30 Docusate Sodium 100 mg BIDPRN PRN PO 07/14/25 21:30 Nitroglycerin 0.4 mg Q5MINP PRN SL 07/14/25 22:00 Morphine Sulfate 2 mg Q30M PRN IV 07/14/25 22:00 Octreotide Acetate 100 mcg TID SUBCUT 07/15/25 14:00 Laboratory Results Laboratory Tests 07/15/25 04:10 Chemistry Test 07/14/25 16:51 07/15/25 04:10 Albumin 2.4 g/dL (3.2-4.8) L 2.5 g/dL (3.2-4.8) L Calcium Level 7.6 mg/dL (8.7-10.4) L 8.2 mg/dL (8.7-10.4) L Total Protein 5.6 g/dL (5.7-8.2) L 5.4 g/dL (5.7-8.2) L Magnesium Level 2.3 mg/dL (1.6-2.6) Phosphorus Level 3.9 mg/dL (2.4-5.1) Coagulation Test 07/14/25 16:51 Prothrombin Time 11.4 sec (9.3-11.8) Prothrombin Time INR 1.08 (0.9-1.15) LFT Test 07/14/25 16:51 07/15/25 04:10 Alanine Aminotransferase (ALT) 16 U/L (7-40) 13 U/L (7-40) Alkaline Phosphatase 92 U/L (46-116) 64 U/L (46-116) Aspartate Amino Transferase (AST) 31 U/L (13-40) 27 U/L (13-40) Total Bilirubin 0.4 mg/dL (0.2-1.0) 0.6 mg/dL (0.2-1.0) Urinalysis Test 07/15/25 12:45 Urine Color Pending Urine Clarity Pending Urine pH Pending Urine Specific [place] Pending Urine Protein Pending Urine Ketones Pending Urine Blood Pending Urine Nitrite Pending Urine Bilirubin Pending Urine Urobilinogen Pending Urine Leukocyte Esterase Pending Urine RBC Pending Urine Microscopic WBC Pending Urine Squamous Epithelial Cells Pending Urine Bacteria Pending Urine Creatinine Pending Urine Protein/Creatinine Ratio Pending Urine Sodium Pending Urine Glucose Pending Urine Total Protein Pending Labs and/or images reviewed: Labs reviewed by me, Image(s) reviewed by me Assessment/Plan Assessment/Plan Cirrhosis of liver with ascites Alcoholic cirrhosis of liver with ascites Electrolyte imbalance Generalized weakness midodrine octreotide Anemia of chronic disease Large ascites Radiology consult for paracentesis End-stage renal disease on peritoneal dialysis: Consult by Nephrology appreciated Check ammonia level Critical care time 70 minutes Advanced care planning time 20 minutes Patient is full code Condition guarded Plan discussed with: Patient Date of Service: Jul 15, 2025 Billing Provider: JAS GOMEZ MD Common Visit Codes: [id number] CARE 30-74 MIN JAS GOMEZ MD Jul 15, 2025 13:17
[2025-07-15 13:23] LABS: Urine Protein, UAD Negative (Negative)
[2025-07-15] MEDS: HYDROcodone-ACET 5/325MG TAB PO PRN (13:50)
[2025-07-15] MEDS: OCTREOTIDE ACETATE 100 MCG/ML VL SUBCUT SCH (13:51)
[2025-07-16] VITALS (8 sets, daily range): BP systolic 94–121; BP diastolic 46–84; PULSE 56–79; RESP 16–19; TEMP 97–97.9; O2SAT 93–97
--- NOTE | 2025-07-16 07:59 | DVHPN2 ---
Reviewed: Care Plan, H&P, Labs, Medications, Previous Orders, Radiology Changes from previous H/P or p: No Changes Eyes: No Pain, No Vision change, No Conjunctivae inflammation, No Eyelid inflammation, No Other, No Redness ENT: No Ear pain, No Ear discharge, No Nose pain, No Nose discharge, No Nose congestion, No Mouth pain, No Mouth swelling, No Throat pain, No Throat swelling, No Other Cardiovascular: Chest Pain; No Palpitations, No Orthopnea, No Paroxysmal Noc. Dyspnea, No Edema, No Lt Headedness, No Other Respiratory: No Cough, No Dry, No Shortness of breath, No SOB with excertion, No Wheezing, No Hemoptysis, No Pleuritic Pain, No Sputum, No Other Gastrointestinal: Nausea, Vomiting, Abdominal Pain; No Diarrhea, No Constipation, No Melena, No Hematochezia; Other (Abdominal distention) Genitourinary: No Dysuria, No Frequency, No Incontinence, No Hematuria, No Retention; Other (Peritoneal dialysis ) Musculoskeletal: No other, No neck pain, No shoulder pain, No arm pain, No back pain, No hand pain, No leg pain, No foot pain Skin: No Rash, No Lesions, No Jaundice, No Bruising, No Other Objective Vitals Vital Signs Date Time Temp Pulse Resp B/P (MAP) Pulse Ox O2 Delivery O2 Flow Rate FiO2 07/16/25 05:00 97.0 79 18 94/46 (62) 93 97.0 07/15/25 20:00 Room Air* 0 21 Medications Current Medications Medications Dose Ordered Sig/Leti Route Start Time Stop Time Status Last Admin Dose Admin Midodrine 10 mg TID@0600,1200,1800 PO 07/15/25 06:00 07/16/25 05:30 10 MG Lactulose 30 ml BID PO 07/14/25 22:00 07/15/25 21:30 30 ML Spironolactone 25 mg DAILY PO 07/15/25 10:00 07/15/25 09:19 25 MG Ibuprofen 400 mg Q6HP PRN PO 07/14/25 21:30 Hold Diagnostic Test (Pha) 1 strip ACHS 07/14/25 22:00 07/16/25 06:26 1 STRIP Insulin Human Regular ACHS SC 07/14/25 22:00 Dextrose 50 ml UD PRN IV 07/14/25 21:30 Sodium Chloride 10 ml Q8HR IV 07/14/25 22:00 07/16/25 05:32 10 ML Acetaminophen/ Hydrocodone Bitart 1 tab Q4HP PRN PO 07/14/25 21:30 07/15/25 13:50 1 TAB Ondansetron HCl 4 mg Q4HP PRN IV 07/14/25 21:30 Docusate Sodium 100 mg BIDPRN PRN PO 07/14/25 21:30 Nitroglycerin 0.4 mg Q5MINP PRN SL 07/14/25 22:00 Morphine Sulfate 2 mg Q30M PRN IV 07/14/25 22:00 Octreotide Acetate 100 mcg TID SUBCUT 07/15/25 14:00 07/15/25 13:51 100 MCG Laboratory Results Laboratory Tests 07/15/25 04:10 Urinalysis Test 07/15/25 12:45 Urine Color Yellow (Yellow) Urine Clarity Turbid (Clear) H Urine pH 5.5 (5.0-9.0) Urine Specific [place] 1.014 (1.001-1.035) Urine Protein Negative (Negative) Urine Ketones Negative (Negative) Urine Blood 2+ /uL (Negative) H Urine Nitrite Negative (Negative) Urine Bilirubin Negative (Negative) Urine Urobilinogen Normal mg/dL (Negative) Urine Leukocyte Esterase 3+ /uL (Negative) Urine RBC 5 /hpf (0 - 4) Urine Microscopic WBC 56 /HPF (0-5) H Urine Squamous Epithelial Cells Few /hpf (<5) Urine Bacteria Mod /hpf (None Seen) H Urine Mucus Few (None Seen) Urine Creatinine 70.21 mg/dL (30.0-125.0) Urine Protein/Creatinine Ratio 0.11 Urine Sodium < 10 mmol/L (40-220) L Urine Glucose Normal mg/dL (Normal) Urine Total Protein 7.8 mg/dL (1-14) Labs and/or images reviewed: Labs reviewed by me, Image(s) reviewed by me Assessment/Plan Assessment/Plan Alcoholic cirrhosis of liver with ascites Acute hepatic encephalopathy Electrolyte imbalance Generalized weakness midodrine octreotide Anemia of chronic disease Large ascites Radiology consult for paracentesis End-stage renal disease on peritoneal dialysis: Consult by Nephrology appreciated Ammonia level normal Critical care time 55 minutes Advanced care planning time 20 minutes Patient is full code Condition guarded Noncompliance per patient the peritoneal dialysis machine broke down and waiting for the new machine Patient is hospice revoked Lives with her daughter and Plan discussed with: Patient My Orders Orders - JAS GOMEZ MD Procedure Category Date Status Time * Radiologist Consult CONS 07/15/25 Transmitted 13:17 Communication Order ORDERS 07/15/25 Transmitted 15:44 * Wound Consult CONS 07/16/25 Transmitted 05:31 Date of Service: Jul 16, 2025 Billing Provider: JAS GOMEZ MD Common Visit Codes: [id number] INP/OBS CARE(HIGH) JAS GOMEZ MD Jul 16, 2025 07:59
--- NOTE | 2025-07-16 10:24 | DVHPN2 ---
Progress Note Date Seen: Jul 16, 2025 Medical Necessity Reason Pt with a Central, PICC or Fol: No Subjective Review of Systems: GI:Abnormal Other Systems: Patient seen and examined by myself today in follow-up Objective vital signs Vital Sign Date Time Temp Pulse Resp B/P (MAP) Pulse Ox O2 Delivery O2 Flow Rate FiO2 07/16/25 09:00 97.4 70 16 111/79 (90) 94 97.4 07/16/25 08:00 Room Air* 0 21 medications Current Medications Medications Dose Ordered Sig/Leti Route Start Time Stop Time Status Last Admin Dose Admin Midodrine 10 mg TID@0600,1200,1800 PO 07/15/25 06:00 07/16/25 05:30 10 MG Lactulose 30 ml BID PO 07/14/25 22:00 07/16/25 09:40 30 ML Spironolactone 25 mg DAILY PO 07/15/25 10:00 07/16/25 09:40 25 MG Ibuprofen 400 mg Q6HP PRN PO 07/14/25 21:30 Hold Sodium Chloride 10 ml Q8HR IV 07/14/25 22:00 07/16/25 05:32 10 ML Acetaminophen/ Hydrocodone Bitart 1 tab Q4HP PRN PO 07/14/25 21:30 07/15/25 13:50 1 TAB Ondansetron HCl 4 mg Q4HP PRN IV 07/14/25 21:30 Docusate Sodium 100 mg BIDPRN PRN PO 07/14/25 21:30 Nitroglycerin 0.4 mg Q5MINP PRN SL 07/14/25 22:00 Morphine Sulfate 2 mg Q30M PRN IV 07/14/25 22:00 Octreotide Acetate 100 mcg TID SUBCUT 07/15/25 14:00 07/15/25 13:51 100 MCG Examination: LUNGS:Normal, ABDOMEN:Abnormal, MSK:Normal laboratory and microbiology Laboratory Tests 07/15/25 04:10 Test 07/15/25 04:10 Range/Units Serum Glucose 96 74-106 mg/dL Problem List/Assessment/Plan Problem List/Assessment/Plan Acute kidney injury superimposed Chronic Kidney Disease stage IIIB secondary hemodynamic mediated, FeNa <1% Hepatorenal syndrome Decompensated liver cirrhosis Ascites Rule out spontaneous bacterial peritonitis Hypotension Anemia of chronic kidney disease Dysfunctional peritoneal drain catheter Recommendation Serum creatinine remained stable No urine output charted Strict I&Os Albumin IV piggyback Midodrine 10 mg p.o. t.i.d. Octreotide Paracentesis Check ascitic fluid for white blood cell and culture and sensitivity kidney ultrasound bilateral atrophic small kidneys We will continue to follow Plan discussed with: Patient, Daughter My Orders My Orders Orders - ZAINAB QUIJANO MD Procedure Category Date Status Time *Dr. [facility] CONS 07/15/25 Transmitted -[place] 10:30 Kidney US 07/15/25 Resulted 10:39 Vitamin D, 25-Hydroxy LAB 07/15/25 In Process 10:39 Hepatitis C Antibody LAB 07/15/25 In Process 10:39 Hepatitis B Surface LAB 07/15/25 In Process Antigen 10:39 Octreotide Acetate PHA 07/15/25 In Process (Sandostatin) 14:00 Dietary Evaluation Review Comments: 1) Initiate Nephro-Harper @ 1 tb qd 2) Consider adding 80g Pro hepatic restriction to renal diet 3) Encourage optimal PO intake 4) Follow-up with nephrology and hepatology 5) Continue to monitor I&O, labs, and skin integrity Expected Outcomes/Goals: 1) appetite and labs to improve 2) GI symptoms to resolve 3) Ciaran Score to improve 4) f/u in 3-5 days ZAINAB QUIJANO MD Jul 16, 2025 10:24
--- NOTE | 2025-07-16 11:20 | DVHINCON2 ---
Date of service: Jul 16, [address] Declan Azar Reason for Consultation Cirrhosis History of Present Illness Patient is a 75-year-old female with past medical history of end-stage liver disease and ascites with a history of peritoneal drainage patient brought in by her daughter because of increased abdominal distention and pain daughter stated that the peritoneal drain is broken and she could not drain her ascites at home. Abdomen/pelvis CT revealing large volume of ascites fluid. Past Medical History Past Medical History ESRD, HTN, Liver disease Past Surgical History Past Surgical History PD catheter Family History: Alzheimer's disease Cerebrovascular accident (CVA) G8 SISTER G8 SISTER Hypertension G8 SISTER G8 SISTER Family History Family History Reviewed, noncontributory to the management of this case. Social History Past Social History The patient lives at home, denies smoking, alcohol or illicit drugs abuse. Allergies: Coded Allergies: NO KNOWN ALLERGIES (Unverified , 10/14/24) Home Meds Active Scripts Sodium Bicarbonate (Sodium Bicarbonate) 650 Mg Tab, 650 MG PO TID for 14 Days, #42 TAB Prov:JUMANA MANCILLA MD 02/05/25 Rifaximin (Xifaxan) 550 Mg Tab, 1 TAB PO BID, #28 TAB Prov:ABHISHEK FINE MD 01/20/25 Midodrine Hcl (Midodrine Hcl) 10 Mg Tab, 10 MG PO BID, #120 TAB Prov:ABHISHEK FINE MD 01/20/25 Reported Medications Spironolactone (Spironolactone) 25 Mg Tab, 1 TAB PO DAILY for 31 Days, #31 02/01/25 Lactulose (Lactulose) 10 Gm Ceasar, 15 GM PO TID, PACK 02/01/25 Ferrous Sulfate (Ferosul) 325 Mg Tab, 325 MG PO DAILY, TAB 12/13/24 Current Medications Current Medications Medications (Trade) Dose Ordered Sig/Leti Route PRN Reason Start Time Stop Time Status Last Admin Octreotide Acetate (SandoSTATIN) 100 mcg TID SUBCUT 07/15/25 14:00 07/15/25 13:51 Vital Signs Vital Signs Date Time Temp Pulse Resp B/P (MAP) Pulse Ox O2 Delivery O2 Flow Rate FiO2 07/16/25 09:00 97.4 70 16 111/79 (90) 94 97.4 07/16/25 08:00 Room Air* 0 21 Physical Exam Examination: LUNGS:Normal, ABDOMEN:Abnormal, MSK:Normal Labs/Diagnostic Data Labs Test 07/16/25 06:19 07/15/25 12:45 07/15/25 11:51 07/15/25 04:10 Range/Units POC Glucose 86 70-106 mg/dl Urine Color Yellow Yellow Urine Clarity Turbid H Clear Urine pH 5.5 5.0-9.0 Urine Specific [place] 1.014 1.001-1.035 Urine Protein Negative Negative Urine Ketones Negative Negative Urine Blood 2+ H Negative /uL Urine Nitrite Negative Negative Urine Bilirubin Negative Negative Urine Urobilinogen Normal Negative mg/dL Urine Leukocyte Esterase 3+ Negative /uL Urine RBC 5 0 - 4 /hpf Urine Microscopic WBC 56 H 0-5 /HPF Urine Squamous Epithelial Cells Few <5 /hpf Urine Bacteria Mod H None Seen /hpf Urine Mucus Few None Seen Urine Creatinine 70.21 30.0-125.0 mg/dL Urine Protein/Creatinine Ratio 0.11 Urine Sodium < 10 L 40-220 mmol/L Urine Glucose Normal Normal mg/dL Urine Total Protein 7.8 1-14 mg/dL Ammonia 29 11-32 umol/L White Blood Count 3.3 L 4.4-10.8 10^3/uL Red Blood Count 3.07 L 4.0-5.20 10^6/uL Hemoglobin 9.9 L 12.2-16.2 g/dL Hematocrit 29.8 L 36.0-46.0 % Mean Corpuscular Volume 97.0 80.0-100.0 fL Mean Corpuscular Hemoglobin 32.3 H 28.0-32.0 pg Mean Corpuscular Hemoglobin Concent 33.3 32.0-36.0 g/dL Red Cell Distribution Width 17.5 H 11.8-14.3 % Platelet Count 135 L 140-450 10^3/uL Mean Platelet Volume 8.1 6.9-10.8 fL Neutrophils (%) (Auto) 70.2 37.0-80.0 % Lymphocytes (%) (Auto) 13.2 10.0-50.0 % Monocytes (%) (Auto) 9.8 0.0-12.0 % Eosinophils (%) (Auto) 5.8 0.0-7.0 % Basophils (%) (Auto) 1.0 0.0-2.0 % Neutrophils # (Auto) 2.3 1.6-8.6 10 ^3/uL Lymphocytes # (Auto) 0.4 0.4-5.4 10 ^3/uL Monocytes # (Auto) 0.3 0-1.3 10 ^3/uL Eosinophils # (Auto) 0.2 0-0.8 10 ^3/uL Basophils # (Auto) 0 0-0.2 10 ^3/uL Nucleated Red Blood Cells 0.2 % Sodium Level 141 136-145 mmol/L Potassium Level 3.6 3.5-5.1 mmol/L Chloride Level 104 98-107 mmol/L Carbon Dioxide Level 25 20-31 mmol/L Anion Gap 12 5-15 Blood Urea Nitrogen 49 #H 9-23 mg/dL Creatinine 1.74 H 0.550-1.02 mg/dL Glomerular Filtration Rate Calc 30 >90 mL/min BUN/Creatinine Ratio 28.2 H 10.0-20.0 Serum Glucose 96 74-106 mg/dL Calcium Level 8.2 L 8.7-10.4 mg/dL Phosphorus Level 3.9 2.4-5.1 mg/dL Magnesium Level 2.3 1.6-2.6 mg/dL Total Bilirubin 0.6 0.2-1.0 mg/dL Aspartate Amino Transferase (AST) 27 13-40 U/L Alanine Aminotransferase (ALT) 13 7-40 U/L Alkaline Phosphatase 64 46-116 U/L Total Protein 5.4 L 5.7-8.2 g/dL Albumin 2.5 L 3.2-4.8 g/dL Test 07/14/25 16:51 Range/Units Prothrombin Time 11.4 9.3-11.8 sec Prothrombin Time INR 1.08 0.9-1.15 Abd USG Impression: Large volume of ascites fluid Problems(with codes): (1) Alcoholic cirrhosis of liver with ascites (2) End-stage renal disease on peritoneal dialysis (3) Generalized weakness (4) Anemia of chronic disease (5) Cirrhosis of liver with ascites Plan/Recommendation Assessment and plan Patient's liver disease appears to be well compensated Her liver enzymes are normal PT INR is currently within normal limits I believe her ascites is mostly nephrogenic recently worse because of failed PD Previously hepatitis panel and JORGE have also been negative Her MELD score is 21 points which is predictive of 19.6% three-month mortality Continue supportive care, continue peritoneal dialysis Nephrology is following No further acute GI intervention Plan discussed with: Other (Declan azar) LINA DIAZ MD Jul 16, 2025 11:20
[2025-07-17] VITALS (9 sets, daily range): BP systolic 96–117; BP diastolic 57–87; PULSE 41–61; RESP 14–18; TEMP 97.5–98.3; O2SAT 94–98
--- NOTE | 2025-07-17 08:37 | DVHPN2 ---
Reviewed: Care Plan, H&P, Labs, Medications, Previous Orders, Radiology Changes from previous H/P or p: No Changes Eyes: No Pain, No Vision change, No Conjunctivae inflammation, No Eyelid inflammation, No Other, No Redness ENT: No Ear pain, No Ear discharge, No Nose pain, No Nose discharge, No Nose congestion, No Mouth pain, No Mouth swelling, No Throat pain, No Throat swelling, No Other Cardiovascular: Chest Pain; No Palpitations, No Orthopnea, No Paroxysmal Noc. Dyspnea, No Edema, No Lt Headedness, No Other Respiratory: No Cough, No Dry, No Shortness of breath, No SOB with excertion, No Wheezing, No Hemoptysis, No Pleuritic Pain, No Sputum, No Other Gastrointestinal: Nausea, Vomiting, Abdominal Pain; No Diarrhea, No Constipation, No Melena, No Hematochezia; Other (Abdominal distention) Genitourinary: No Dysuria, No Frequency, No Incontinence, No Hematuria, No Retention; Other (Peritoneal dialysis ) Musculoskeletal: No other, No neck pain, No shoulder pain, No arm pain, No back pain, No hand pain, No leg pain, No foot pain Skin: No Rash, No Lesions, No Jaundice, No Bruising, No Other Objective Vitals Vital Signs Date Time Temp Pulse Resp B/P (MAP) Pulse Ox O2 Delivery O2 Flow Rate FiO2 07/17/25 05:00 97.5 53 16 101/69 (80) 96 97.5 07/16/25 20:00 Room Air* 0 21 Medications Current Medications Medications Dose Ordered Sig/Leti Route Start Time Stop Time Status Last Admin Dose Admin Midodrine 10 mg TID@0600,1200,1800 PO 07/15/25 06:00 07/17/25 05:12 10 MG Lactulose 30 ml BID PO 07/14/25 22:00 07/16/25 21:40 30 ML Spironolactone 25 mg DAILY PO 07/15/25 10:00 07/16/25 09:40 25 MG Sodium Chloride 10 ml Q8HR IV 07/14/25 22:00 07/17/25 05:12 10 ML Acetaminophen/ Hydrocodone Bitart 1 tab Q4HP PRN PO 07/14/25 21:30 07/15/25 13:50 1 TAB Ondansetron HCl 4 mg Q4HP PRN IV 07/14/25 21:30 Docusate Sodium 100 mg BIDPRN PRN PO 07/14/25 21:30 Nitroglycerin 0.4 mg Q5MINP PRN SL 07/14/25 22:00 Morphine Sulfate 2 mg Q30M PRN IV 07/14/25 22:00 Octreotide Acetate 100 mcg TID SUBCUT 07/15/25 14:00 07/17/25 05:13 100 MCG Laboratory Results Laboratory Tests 07/15/25 04:10 Urinalysis Test 07/15/25 12:45 Urine Color Yellow (Yellow) Urine Clarity Turbid (Clear) H Urine pH 5.5 (5.0-9.0) Urine Specific [place] 1.014 (1.001-1.035) Urine Protein Negative (Negative) Urine Ketones Negative (Negative) Urine Blood 2+ /uL (Negative) H Urine Nitrite Negative (Negative) Urine Bilirubin Negative (Negative) Urine Urobilinogen Normal mg/dL (Negative) Urine Leukocyte Esterase 3+ /uL (Negative) Urine RBC 5 /hpf (0 - 4) Urine Microscopic WBC 56 /HPF (0-5) H Urine Squamous Epithelial Cells Few /hpf (<5) Urine Bacteria Mod /hpf (None Seen) H Urine Mucus Few (None Seen) Urine Creatinine 70.21 mg/dL (30.0-125.0) Urine Protein/Creatinine Ratio 0.11 Urine Sodium < 10 mmol/L (40-220) L Urine Glucose Normal mg/dL (Normal) Urine Total Protein 7.8 mg/dL (1-14) Labs and/or images reviewed: Labs reviewed by me, Image(s) reviewed by me Assessment/Plan Assessment/Plan Acute kidney injury superimposed Chronic Kidney Disease stage IIIB secondary hemodynamic mediated, FeNa <1% Hepatorenal syndrome: On midodrine and octreotide Decompensated liver cirrhosis: GI consult by Dr. Sylvain Foley appreciated, meld score 21 predictive mortality of 20 percent in three months Ascites Rule out spontaneous bacterial peritonitis Hypotension Anemia of chronic kidney disease Dysfunctional peritoneal drain catheter: Radiology consult placed for replacement of the peritoneal drain Patient's daughter Nani [phone] at bedside and requesting [facility] facility placement for physical therapy medication management and to monitor her liver enzymes Patient is hospice revoked Lives with her daughter and Plan discussed with: Patient My Orders Orders - JAS GOMEZ MD Procedure Category Date Status Time * Radiologist Consult CONS 07/16/25 Transmitted 10:23 * Gi [facility] Helper CONS 07/16/25 Transmitted 10:24 Pt Request For Service PT 07/16/25 Logged 11:49 Date of Service: Jul 17, 2025 Billing Provider: JAS GOMEZ MD Common Visit Codes: [id number] INP/OBS CARE(HIGH) JAS GOMEZ MD Jul 17, 2025 08:37
--- NOTE | 2025-07-17 09:37 | DVHDS2 ---
Discharge Summary Date of Admission Jul 14, 2025 at 21:46 Date of Discharge: Jul 17, 2025 Admitting Diagnosis Altered mental status and generalized weakness Wounds: None Labs/Diagnostic Data: Laboratory Results Test 07/16/25 06:19 07/15/25 12:45 07/15/25 11:51 07/15/25 04:10 POC Glucose 86 mg/dl (70-106) Urine Color Yellow (Yellow) Urine Clarity Turbid (Clear) Urine pH 5.5 (5.0-9.0) Urine Specific [place] 1.014 (1.001-1.035) Urine Protein Negative (Negative) Urine Ketones Negative (Negative) Urine Blood 2+ /uL (Negative) Urine Nitrite Negative (Negative) Urine Bilirubin Negative (Negative) Urine Urobilinogen Normal mg/dL (Negative) Urine Leukocyte Esterase 3+ /uL (Negative) Urine RBC 5 /hpf (0 - 4) Urine Microscopic WBC 56 /HPF (0-5) Urine Squamous Epithelial Cells Few /hpf (<5) Urine Bacteria Mod /hpf (None Seen) Urine Mucus Few (None Seen) Urine Creatinine 70.21 mg/dL (30.0-125.0) Urine Protein/Creatinine Ratio 0.11 Urine Sodium < 10 mmol/L (40-220) Urine Glucose Normal mg/dL (Normal) Urine Total Protein 7.8 mg/dL (1-14) Ammonia 29 umol/L (11-32) White Blood Count 3.3 10^3/uL (4.4-10.8) Red Blood Count 3.07 10^6/uL (4.0-5.20) Hemoglobin 9.9 g/dL (12.2-16.2) Hematocrit 29.8 % (36.0-46.0) Mean Corpuscular Volume 97.0 fL (80.0-100.0) Mean Corpuscular Hemoglobin 32.3 pg (28.0-32.0) Mean Corpuscular Hemoglobin Concent 33.3 g/dL (32.0-36.0) Red Cell Distribution Width 17.5 % (11.8-14.3) Platelet Count 135 10^3/uL (140-450) Mean Platelet Volume 8.1 fL (6.9-10.8) Neutrophils (%) (Auto) 70.2 % (37.0-80.0) Lymphocytes (%) (Auto) 13.2 % (10.0-50.0) Monocytes (%) (Auto) 9.8 % (0.0-12.0) Eosinophils (%) (Auto) 5.8 % (0.0-7.0) Basophils (%) (Auto) 1.0 % (0.0-2.0) Neutrophils # (Auto) 2.3 10 ^3/uL (1.6-8.6) Lymphocytes # (Auto) 0.4 10 ^3/uL (0.4-5.4) Monocytes # (Auto) 0.3 10 ^3/uL (0-1.3) Eosinophils # (Auto) 0.2 10 ^3/uL (0-0.8) Basophils # (Auto) 0 10 ^3/uL (0-0.2) Nucleated Red Blood Cells 0.2 % Sodium Level 141 mmol/L (136-145) Potassium Level 3.6 mmol/L (3.5-5.1) Chloride Level 104 mmol/L (98-107) Carbon Dioxide Level 25 mmol/L (20-31) Anion Gap 12 (5-15) Blood Urea Nitrogen 49 mg/dL (9-23) Creatinine 1.74 mg/dL (0.550-1.02) Glomerular Filtration Rate Calc 30 mL/min (>90) BUN/Creatinine Ratio 28.2 (10.0-20.0) Serum Glucose 96 mg/dL (74-106) Calcium Level 8.2 mg/dL (8.7-10.4) Phosphorus Level 3.9 mg/dL (2.4-5.1) Magnesium Level 2.3 mg/dL (1.6-2.6) Total Bilirubin 0.6 mg/dL (0.2-1.0) Aspartate Amino Transferase (AST) 27 U/L (13-40) Alanine Aminotransferase (ALT) 13 U/L (7-40) Alkaline Phosphatase 64 U/L (46-116) Total Protein 5.4 g/dL (5.7-8.2) Albumin 2.5 g/dL (3.2-4.8) Test 07/14/25 16:51 Prothrombin Time 11.4 sec (9.3-11.8) Prothrombin Time INR 1.08 (0.9-1.15) Other Laboratory Tests 07/15/25 04:10 Brief Hx & Hospital Course: 75-year-old female with a alcoholic cirrhosis chronic ascites with the peritoneal drainage catheter in place came in for abdominal pain generalized weakness and altered mental status. Patient was found to have acute kidney injury superimposed on chronic kidney disease stage 3 secondary to hemodynamic mediated. Seen by Nephrology Dr. Boyce placed on midodrine and octreotide . Per patient's daughter the peritoneal drainage catheter was blocked for the last three weeks. Seen by GI Dr. Sylvain Foley who felt the patient has a MELD score of 21 with a predicted mortality of 20 percent in three months. The daughter was advised accordingly. Patient was placed on midodrine octreotide The patient is very weak and fragile and failure to thrive. Mental status slightly improved ammonia level normal patient is on lactulose. Patient is being discharged to [facility] facility for physical therapy medication management peritoneal fluid drainage and periodic labs. The plan is acceptable with the patient's daughter Nani at bed side. Consults/Reason for consult GI Dr. Sylvain Foley Nephrology Dr. Strong Radiologist Operations or Procedures CT abdomen pelvis without contrast, replacement of the peritoneal drainage catheter Condition at Discharge: Fair Final Diagnosis/Problems List Acute kidney injury superimposed Chronic Kidney Disease stage IIIB secondary hemodynamic mediated, FeNa <1% Hepatorenal syndrome: On midodrine and octreotide Decompensated liver cirrhosis: GI consult by Dr. Sylvain Foley appreciated, meld score 21 predictive mortality of 20 percent in three months Ascites Rule out spontaneous bacterial peritonitis Hypotension Anemia of chronic kidney disease Dysfunctional peritoneal drain catheter: Radiology consult placed for replacement of the peritoneal drain Discharge Disposition: [facility]irement Facility Discharge Instruct/Medications Diet: Renal Activity: Light activity Follow Up/Referral: Follow up with the [facility] Medications: see list Scheduled Ferrous Sulfate (Ferosul), 325 MG PO DAILY, (Reported) Lactulose (Lactulose), 15 GM PO TID, (Reported) Midodrine Hcl (Midodrine Hcl), 10 MG PO BID Rifaximin (Xifaxan), 1 TAB PO BID Sodium Bicarbonate (Sodium Bicarbonate), 650 MG PO TID Spironolactone (Spironolactone), 1 TAB PO DAILY, (Reported) 39 (Time taken for discharge summary 39 minutes) Discharge Statement: "Patient was advised to return to the ER or call 911 if any headaches, dizziness, shortness of breath, chest pain, abdominal pain, bleeding, fevers, or worsening of medical condition. Patient was counseled about treatment plan, medications, possible side effects, patientverbalized understanding. All questions were answered to the best of my ability. This discharge took greater then 30 minutes in planning, reviewing documentation, counseling the patient, and discussing with other team members." ASSESSMENT ASSESSMENT Hospital Course Improved marginally Assessment Acute kidney injury superimposed Chronic Kidney Disease stage IIIB secondary hemodynamic mediated, FeNa <1% Hepatorenal syndrome: On midodrine and octreotide Decompensated liver cirrhosis: GI consult by Dr. Sylvain Foley appreciated, meld score 21 predictive mortality of 20 percent in three months Ascites Rule out spontaneous bacterial peritonitis Hypotension Anemia of chronic kidney disease Dysfunctional peritoneal drain catheter: Radiology consult placed for replacement of the peritoneal drain Failure to thrive Date of Service: Jul 17, 2025 Billing Provider: JAS GOMEZ MD Common Visit Codes: [id number] DISCH DAY >30min JAS GOMEZ MD Jul 17, 2025 09:37
[2025-07-17 11:09] LABS: Hepatitis B Surface Antigen Negative (Negative); Hepatitis C Antibody Negative (Negative)
[2025-07-17 11:22] LABS: Anion Gap 15 (5-15); Carbon Dioxide 23 mmol/L (20-31); Chloride 103 mmol/L (98-107); Potassium 4.4 mmol/L (3.5-5.1); Sodium 141 mmol/L (136-145)
[2025-07-17 11:28] LABS: BUN/Creatinine Ratio 22.1 (10.0-20.0)
[2025-07-17 11:34] LABS: Blood Urea Nitrogen 47 mg/dL (9-23); Calcium 7.9 mg/dL (8.7-10.4); Glucose 136 mg/dL (74-106)
[2025-07-17] MEDS: LIDOCAINE 2%HCL (LOCAL ANESTH.) INJ 20ML MDV ONE (13:03)
--- NOTE | 2025-07-17 13:12 | DVHPN2 ---
Subjective Patient has paracentesis today No other complaints Reviewed: Care Plan, H&P, Labs, Medications, Previous Orders, Radiology Changes from previous H/P or p: No Changes Eyes: No Pain, No Vision change, No Conjunctivae inflammation, No Eyelid inflammation, No Other, No Redness ENT: No Ear pain, No Ear discharge, No Nose pain, No Nose discharge, No Nose congestion, No Mouth pain, No Mouth swelling, No Throat pain, No Throat swelling, No Other Cardiovascular: Chest Pain; No Palpitations, No Orthopnea, No Paroxysmal Noc. Dyspnea, No Edema, No Lt Headedness, No Other Respiratory: No Cough, No Dry, No Shortness of breath, No SOB with excertion, No Wheezing, No Hemoptysis, No Pleuritic Pain, No Sputum, No Other Gastrointestinal: Nausea, Vomiting, Abdominal Pain; No Diarrhea, No Constipation, No Melena, No Hematochezia; Other (Abdominal distention) Genitourinary: No Dysuria, No Frequency, No Incontinence, No Hematuria, No Retention; Other (Peritoneal dialysis ) Musculoskeletal: No other, No neck pain, No shoulder pain, No arm pain, No back pain, No hand pain, No leg pain, No foot pain Skin: No Rash, No Lesions, No Jaundice, No Bruising, No Other Objective Vitals Vital Signs Date Time Temp Pulse Resp B/P (MAP) Pulse Ox O2 Delivery O2 Flow Rate FiO2 07/17/25 12:49 98.3 61 14 101/72 (82) 94 98.3 07/17/25 08:00 Room Air* 0 21 General Appearance: Alert, Oriented X3, Cooperative, No acute distress, mild distress, moderate distress, severe distress, Other Lungs: Clear to auscultation, Normal air movement, Other Chest/Breasts: Discharge, Lesions, Lumps, Nipple Changes, Pruritis, R ashes/Redness, Symmetry, Tumors, Other Cardiovascular: Regular rate, Normal S1, Normal S2, No murmurs, Gallops, Rubs, Other Abdomen: Normal bowel sounds, Soft, No tenderness, No hepatospenomegaly, No masses, Other Medications Current Medications Medications Dose Ordered Sig/Leti Route Start Time Stop Time Status Last Admin Dose Admin Midodrine 10 mg TID@0600,1200,1800 PO 07/15/25 06:00 07/17/25 05:12 10 MG Lactulose 30 ml BID PO 07/14/25 22:00 07/17/25 10:22 30 ML Spironolactone 25 mg DAILY PO 07/15/25 10:00 07/17/25 10:22 25 MG Sodium Chloride 10 ml Q8HR IV 07/14/25 22:00 07/17/25 05:12 10 ML Acetaminophen/ Hydrocodone Bitart 1 tab Q4HP PRN PO 07/14/25 21:30 07/15/25 13:50 1 TAB Ondansetron HCl 4 mg Q4HP PRN IV 07/14/25 21:30 Docusate Sodium 100 mg BIDPRN PRN PO 07/14/25 21:30 Nitroglycerin 0.4 mg Q5MINP PRN SL 07/14/25 22:00 Morphine Sulfate 2 mg Q30M PRN IV 07/14/25 22:00 Octreotide Acetate 100 mcg TID SUBCUT 07/15/25 14:00 07/17/25 05:13 100 MCG Laboratory Results Laboratory Tests 07/15/25 04:10 07/17/25 10:02 Chemistry Test 07/17/25 10:02 Calcium Level 7.9 mg/dL (8.7-10.4) L Urinalysis Test 07/15/25 12:45 Urine Color Yellow (Yellow) Urine Clarity Turbid (Clear) H Urine pH 5.5 (5.0-9.0) Urine Specific [place] 1.014 (1.001-1.035) Urine Protein Negative (Negative) Urine Ketones Negative (Negative) Urine Blood 2+ /uL (Negative) H Urine Nitrite Negative (Negative) Urine Bilirubin Negative (Negative) Urine Urobilinogen Normal mg/dL (Negative) Urine Leukocyte Esterase 3+ /uL (Negative) Urine RBC 5 /hpf (0 - 4) Urine Microscopic WBC 56 /HPF (0-5) H Urine Squamous Epithelial Cells Few /hpf (<5) Urine Bacteria Mod /hpf (None Seen) H Urine Mucus Few (None Seen) Urine Creatinine 70.21 mg/dL (30.0-125.0) Urine Protein/Creatinine Ratio 0.11 Urine Sodium < 10 mmol/L (40-220) L Urine Glucose Normal mg/dL (Normal) Urine Total Protein 7.8 mg/dL (1-14) Labs and/or images reviewed: Labs reviewed by me, Image(s) reviewed by me Assessment/Plan Assessment/Plan Liver cirrhosis Ascites Generalized weakness Anemia of chronic disease Plan Discussed with Dr. Foley Paracentesis today No further acute GI intervention at this time Patient has tentative plan to be discharged home today Outpatient GI follow-up recommended in next available appointment Plan discussed with: Patient Date of Service: Jul 17, 2025 Billing Provider: JERARDO GOMEZ Common Visit Codes: [id number] INP/OBS CARE(HIGH) JERARDO GOMEZ Jul 17, 2025 13:12
[2025-07-17] MEDS: MIDAZOLAM HCL 2MG/2ML 2ml VIAL (1mg/ml) ONE (14:22)
[2025-07-17] MEDS: fentaNYL CITRATE 100 MCG/2 ML VL ONE (14:22)
[2025-07-17] MEDS: ceFAZolin 1GM/50ML 50 ML IV ONE (14:37)
--- NOTE | 2025-07-17 15:47 | DVH ---
IONA PERCUTANEOUS PL. , US US GUIDANCE FOR NEEDLE PLACEME, HISTORY: PLUERX DRAIN PL due to the old Pleurx catheter being broken. PROCEDURE: Informed consent was obtained. Patient was positioned supine on the interventional table. 1 gram of Ancef was given IV. A limited ultrasound of the right lower quadrant was performed. The abd omen was prepped with chlorhexidine which was allowed to dry and draped in sterile fashion. Time out was performed. The entry site was infiltrated with 1% lidocaine. The old tunneled peritoneal catheter was removed and a stitch applied and a sterile dressing. The peritoneal cavity was accessed using a centesis needle sheath and a wire coiled in the fluid. About 7-10 cm subcutaneous tract from the upp er outer quadrant was infiltrated with Lidocaine with epinephrine. A 15.5 [place] Pleurx drain was servando neled subcutaneously. The peritoneal entry site was serially dilated up to a 16 [place] peel-away andrew th. The drain was advanced through the sheath as it was removed. Catheter position was confirmed by r eturn of fluid and fluoroscopic imaging. A total of 4000 mL clear serous fluid was aspirated. The cat heter was sutured to the skin surface and the peritoneal entry site closed with 2-0 Vicryl and sealed with Dermabond. No immediate complication was identified. Air Kerma 4 mGy FLUOROSCOPY TIME: 1.0 minutes. SEDATION: Dr. Riana Donnelly was personally responsible for the administration of moderate sedation during the procedure performed, including the use of an independent trained observer who had no other duties during the procedure. The drugs utilized were IV fentanyl and versed (see nursing log for details). The total time of supervision by the attending physician was approximately 30 minutes. FINDINGS: Initial ultrasound image demonstrates moderate to large ascites. Post-placement images show s the catheter extending across the peritoneal cavity space with the tip in the pelvis. IMPRESSION: Successful replacement of 15.5 [place] Pleurx tunneled drain for recurrent ascites. 4L ascites was re moved. Plan: Continue to drain ascites daily as needed.
--- NOTE | 2025-07-17 19:19 | DVHPN2 ---
Progress Note Date Seen: Jul 17, 2025 Medical Necessity Reason Pt with a Central, PICC or Fol: No Subjective Patient reports: No new complaints Objective vital signs Vital Sign Date Time Temp Pulse Resp B/P (MAP) Pulse Ox O2 Delivery O2 Flow Rate FiO2 07/17/25 17:40 98.1 51 16 95 07/17/25 16:40 108/83 (91) 07/17/25 08:00 Room Air* 0 21 laboratory and microbiology Laboratory Tests 07/17/25 10:02 07/15/25 04:10 Test 07/17/25 10:02 Range/Units Serum Glucose 136 H 74-106 mg/dL Problem List/Assessment/Plan Problem List/Assessment/Plan Acute kidney injury superimposed Chronic Kidney Disease stage IIIB secondary hemodynamic mediated, FeNa <1% Hepatorenal syndrome Decompensated liver cirrhosis Ascites Rule out spontaneous bacterial peritonitis Hypotension Anemia of chronic kidney disease Dysfunctional peritoneal drain catheter recs labs noted slightly worse will f/u Plan discussed with: Patient Dietary Evaluation Review Comments: 1) Initiate Nephro-Harper @ 1 tb qd 2) Consider adding 80g Pro hepatic restriction to renal diet 3) Encourage optimal PO intake 4) Follow-up with nephrology and hepatology 5) Continue to monitor I&O, labs, and skin integrity Expected Outcomes/Goals: 1) appetite and labs to improve 2) GI symptoms to resolve 3) Ciaran Score to improve 4) f/u in 3-5 days BRENDA HANSON MD Jul 17, 2025 19:19
== END 2025-07-17 18:43 | DRG 919 ==
LOC: EDBD 14:10 → ER 14:10 → OVERFLOW 21:46 → TELE-CENTR 07-15 15:51
PROVIDERS: ADMIT Family Medicine; ATTEND Family Medicine
PROC: 0JH83XZ Insertion of Tunneled Vascular Access Device into Abdomen Subcutaneous Tissue and Fascia, Percutaneous Approach (ICD-10-PCS; principal; 2025-07-17)
PROC: 0WPFX0Z Removal of Drainage Device from Abdominal Wall, External Approach (ICD-10-PCS; 2025-07-17)
DX: T85.598A Other mechanical complication of other gastrointestinal prosthetic devices, implants and grafts, initial encounter (principal); K65.2 Spontaneous bacterial peritonitis; K76.7 Hepatorenal syndrome; N18.6 End stage renal disease; N17.9 Acute kidney failure, unspecified; I12.0 Hypertensive chronic kidney disease with stage 5 chronic kidney disease or end stage renal disease; K70.31 Alcoholic cirrhosis of liver with ascites; D63.1 Anemia in chronic kidney disease; I95.9 Hypotension, unspecified; K76.82 Hepatic encephalopathy; R62.7 Adult failure to thrive; Z79.2 Long term (current) use of antibiotics; Z82.49 Family history of ischemic heart disease and other diseases of the circulatory system; Z82.3 Family history of stroke; Z68.21 Body mass index [BMI] 21.0-21.9, adult; Z82.0 Family history of epilepsy and other diseases of the nervous system; Z99.2 Dependence on renal dialysis; Z91.199 Patient's noncompliance with other medical treatment and regimen due to unspecified reason; Y84.8 Other medical procedures as the cause of abnormal reaction of the patient, or of later complication, without mention of misadventure at the time of the procedure; Y92.89 Other specified places as the place of occurrence of the external cause
CPT/HCPCS: 36415; 76705; 76775; 76942; 80048; 80053; 81001; 82140; 82306; 82570; 82962; 83735; 83970; 84100; 84156; 84300; 85025; 85610; 86803; 87340; 96365; 97110; 97116; 97163; 99152; 99291; 99292; A4300; G0378; J2250; P9047

== ENCOUNTER 2025-07-21 13:10 | Inpatient (IN) | payer OTHER, MEDICAID ==
[~2025-07-21] VITALS: Ht 149.9 cm; Wt 52.8 kg
--- NOTE | 2025-07-21 13:20 | ED.PDOC ---
HPI Comments This is a 75 year old female BIBA and accompanied by daughter presenting to the ED with chief complaint of chest pain. EMS reports patient has been at [facility] for the past 5 days when she suddenly had sharp, 8/10 chest pain this morning with associated bilateral leg pain. EMS relays that the patient's chest pain and leg pain has since resolved, but patient's BP was at 97 systolic, so they started IVF. EMS states patient is A/O x1 at baseline. Patient denies any SOB, dizziness, N/V, abdominal pain, headache, or fever. Chief Complaint: Chest Pain Time Seen by MD: 13:18 Primary Care Provider: ASHLEY Reviewed Notes: Nurses Notes, [employer] Account Assistant Notes, Medications, Allergies Allergies: Coded Allergies: NO KNOWN ALLERGIES (Unverified , 10/14/24) Home Meds Active Scripts Sodium Bicarbonate (Sodium Bicarbonate) 650 Mg Tab, 650 MG PO TID for 14 Days, #42 TAB Prov:JUMANA MANCILLA MD 02/05/25 Rifaximin (Xifaxan) 550 Mg Tab, 1 TAB PO BID, #28 TAB Prov:ABHISHEK FINE MD 01/20/25 Midodrine Hcl (Midodrine Hcl) 10 Mg Tab, 10 MG PO BID, #120 TAB Prov:ABHISHEK FINE MD 01/20/25 Reported Medications Spironolactone (Spironolactone) 25 Mg Tab, 1 TAB PO DAILY for 31 Days, #31 02/01/25 Lactulose (Lactulose) 10 Gm Ceasar, 15 GM PO TID, PACK 02/01/25 Ferrous Sulfate (Ferosul) 325 Mg Tab, 325 MG PO DAILY, TAB 12/13/24 Information Source: Patient, Relative (Child), Emergency Med Personnel Mode of Arrival: EMS Severity: Moderate Timing: Hours Duration: Since onset Prehospital treatment: None Location: Chest (L) Radiation: No Radiation Quality: Sharp Onset: At Rest Cardiac Risk Factors: HTN Past Medical History PAST MEDICAL HISTORY: Cancer, ESRD, HTN, Liver Surgical History (Other): Stomach tumor removal DIGITAL MANAGER History: Denies all DIGITAL MANAGER Hx Family History Family History: Reviewed,noncontributory to illness Social History Smoker: Non-Smoker Alcohol: Denies ETOH Use Drugs: Denies Drug Use Lives In: Assisted Care Constitutional: denies: chills, diaphoresis, fatigue, fever, malaise, sweats, weakness, others EENTM: denies: blurred vision, double vision, ear bleeding, ear discharge, ear drainage, ear pain, ear ringing, eye pain, eye redness, hearing loss, mouth pain, mouth swelling, nasal discharge, nose bleeding, nose congestion, nose pain, photophobia, tearing, throat pain, throat swelling, voice changes, others Respiratory: denies: cough, hemoptysis, orthopnea, SOB at rest, shortness of breath, SOB with excertion, stridor, wheezing, others Cardiovascular: reports: chest pain; denies: dizzy spells, diaphoresis, Dyspnea on exertion, edema, irregular heart beat, left arm pain, lightheadedness, palpitations, PND, syncope, others Gastrointestinal: denies: abdomen distended, abdominal pain, blood streaked bowels, constipated, diarrhea, dysphagia, difficulty swallowing, hematemesis, melena, nausea, poor appetite, poor fluid intake, rectal bleeding, rectal pain, vomiting, others Genitourinary: denies: abnormal vagina bleeding, burning, dyspareunia, dysuria, flank pain, frequency, hematuria, incontinence, pain, , vagina discharge, urgency, others Neurological: denies: dizziness, fainting, headache, left sided numbness, left sided weakness, numbness, paresthesia, pre-existing deficit, right sided numbness, right sided weakness, seizure, speech problems, tingling, tremors, weakness, others Musculoskeletal: reports: others (Leg pain); denies: back pain, gout, joint pain, joint swelling, muscle pain, muscle stiffness, neck pain Integumetry: denies: bruises, change in color, change in hair/nails, dryness, laceration, lesions, lumps, rash, wounds, others Allergic/Immunocompromised: denies: Difficulty Healing, Frequent Infections, Hives, Itching, others Hematologic/Lymphatic: denies: anemia, blood clots, easy bleeding, easy bruising, swollen glands, others Endocrine: denies: excessive hunger, excessive sweating, excessive thirst, excessive urination, flushing, intolerance to cold, intolerance to heat, unexplained weight gain, unexplained weight loss, others Psychiatric: denies: anxiety, bipolar disorder, depression, hopeless, panic disorder, schizophrenia, sleepless, suicidal, others All Other Systems: Reviewed and Negative Physical Exam General Appearance: Moderate Distress, Thin HEENT: Normal ENT Inspection, Pharynx Normal, TMs Normal Neck: Full Range of Motion, Non-Tender, Normal, Normal Inspection Respiratory: Chest Non-Tender, Lungs Clear, No Accessory Muscle Use, No Respiratory Distress, Normal Breath Sounds Cardiovascular: No Edema, No JVD, No Murmur, No Gallop, Normal Peripheral P ulses, Regular Rate/Rhythm Breast Exam: Deferred Gastrointestinal: No Organomegaly, Non Tender, No Pulsatile Mass, Normal Bowel Sounds, Soft Genitalia: Deferred Pelvic: Deferred Rectal: Deferred Extremities: No calf tenderness, Normal capillary refill, No pedal edema Musculoskeletal : Apperance: Normal Neurologic: structural designer II-XII nml as Tested, Motor Weakness, Normal Affect, Normal Mood, No Sensory Deficits Cerebellar Function: Unable to Test Reflexes: Normal Skin: Dry, Pallor, Warm Lymphatic: No Adenopathy EKG EKG : Pulse Rate (adult): 97 [place]: Normal Cardiac Rhythm: NSR Block: None Hypertrophy: None ST: Normal Comments Low voltage Was a procedure done? Was a procedure done?: No CP Differential Dx Differential Diagnosis: Angina, NC, PSVT, Pulmonary Embolus Differential Diagnosis: CHF X-Ray, Labs, Meds, VS Vital Signs Date Time Temp Pulse Resp B/P (MAP) Pulse Ox O2 Delivery O2 Flow Rate FiO2 07/21/25 13:20 97 07/21/25 13:14 98.3 100 18 100/69 97 98.3 07/21/25 13:12 97 Lab Test 07/21/25 13:41 Range/Units White Blood Count 4.8 # 4.4-10.8 10^3/uL Red Blood Count 3.42 L 4.0-5.20 10^6/uL Hemoglobin 10.8 L 12.2-16.2 g/dL Hematocrit 32.9 #L 36.0-46.0 % Mean Corpuscular Volume 96.4 80.0-100.0 fL Mean Corpuscular Hemoglobin 31.6 28.0-32.0 pg Mean Corpuscular Hemoglobin Concent 32.8 32.0-36.0 g/dL Red Cell Distribution Width 17.1 H 11.8-14.3 % Platelet Count 137 L 140-450 10^3/uL Mean Platelet Volume 7.8 6.9-10.8 fL Neutrophils (%) (Auto) 77.9 37.0-80.0 % Lymphocytes (%) (Auto) 8.6 L 10.0-50.0 % Monocytes (%) (Auto) 11.2 0.0-12.0 % Eosinophils (%) (Auto) 2.2 0.0-7.0 % Basophils (%) (Auto) 0.1 0.0-2.0 % Neutrophils # (Auto) 3.8 1.6-8.6 10 ^3/uL Lymphocytes # (Auto) 0.4 0.4-5.4 10 ^3/uL Monocytes # (Auto) 0.5 0-1.3 10 ^3/uL Eosinophils # (Auto) 0.1 0-0.8 10 ^3/uL Basophils # (Auto) 0 0-0.2 10 ^3/uL Nucleated Red Blood Cells 0.1 % Sodium Level 138 136-145 mmol/L Potassium Level 4.1 3.5-5.1 mmol/L Chloride Level 105 98-107 mmol/L Carbon Dioxide Level 24 20-31 mmol/L Anion Gap 9 5-15 Blood Urea Nitrogen 59 H 9-23 mg/dL Creatinine 1.80 H 0.550-1.02 mg/dL Glomerular Filtration Rate Calc 29 >90 mL/min BUN/Creatinine Ratio 32.8 H 10.0-20.0 Serum Glucose 139 H 74-106 mg/dL Calcium Level 7.2 L 8.7-10.4 mg/dL Ammonia 11 11-32 umol/L Troponin I High Sensitivity 130 *H </=34 ng/L IV Hep-Lock was established The CBC shows anemia with a hemoglobin of 10.8 hematocrit of 32.9 The rest of the chemistry panel is within normal limits The BUN is 59 and the creatinine is 1.80 The troponin level x1 is 130 at this time The patient's ammonia level is within normal limits The patient is being admitted with a diagnosis of acute chest pain and elevated troponin level The patient understands and agrees with the management. We have discussed the findings with the patient and her daughter Images Reviewed?: Images reviewed and evaluated by me Time of 1ST Reevaluation: 14:22 Reevaluation 1ST: Unchanged Patient Education/Counseling: Diagnosis, Treatment, Prognosis Family Education/Counseling: Diagnosis, Treatment, Prognosis SEPSIS Sepsis Screen Physician Orders Electrocardigram (07/21/25 14:15) Electrocardigram (07/21/25 16:15) Chest Portable (07/21/25 13:19) Heplock Iv (07/21/25 13:19) Him Clerk (07/21/25 13:19) Blood Pressure (07/21/25 13:19) Pulse Oximetry (07/21/25 13:19) Urinalysis (07/21/25 13:19) Troponin-I Hs (07/21/25 14:19) Troponin-I Hs (07/21/25 16:19) Vital Signs Date Time Temp Pulse Resp B/P (MAP) Pulse Ox O2 Delivery O2 Flow Rate FiO2 07/21/25 13:20 97 07/21/25 13:14 98.3 100 18 100/69 97 98.3 07/21/25 13:12 97 Laboratory Tests Test 07/21/25 13:41 White Blood Count 4.8 10^3/uL (4.4-10.8) # Departure 1 Departure Time of Disposition: 14:22 Impression: Primary Impression: Acute chest pain Additional Impressions: Acute coronary syndrome Elevated troponin level Disposition: ADMITTED INPATIENT [facility]mit to: [facility] Condition: Fair Critical Care Note Critical Care Time?: Yes (45 min-critical care time only) Stability Stability form required: Yes Unstable for transfer: Telemetry monitoring (Telemetry monitoring required), ED Physician Assesment (Clinical assesment) Heart Score Heart Score: Heart Score Response (Comments) Value History Moderate Suspicious 1 EKG Normal 0 Age >65 2 Risk Factors >3 or Hx ASHD 2 Troponin 1-2 x's Normal limit 1 Total 6 I personally scribed for KENNEDY HILARIO MD ([email or web address]) on 07/21/25 at 13:20. Electronically submitted by Ari Michael ([email or web address]). KENNEDY HILARIO MD Jul 21, 2025 13:20
[2025-07-21 13:53] LABS: Hematocrit 32.9 % (36.0-46.0); Hemoglobin 10.8 g/dL (12.2-16.2); Mean Corpuscular Hemoglobin 31.6 pg (28.0-32.0); Mean Corpuscular Volume 96.4 fL (80.0-100.0); Nucleated Red Blood Cells % 0.1 %
[2025-07-21 13:56] VITALS: PULSE 88; RESP 16; O2SAT 94
[2025-07-21 14:02] LABS: Chloride 105 mmol/L (98-107); Potassium 4.1 mmol/L (3.5-5.1); Sodium 138 mmol/L (136-145)
[2025-07-21 14:03] LABS: Anion Gap 9 (5-15); Carbon Dioxide 24 mmol/L (20-31)
[2025-07-21 14:07] LABS: Calcium 7.2 mg/dL (8.7-10.4)
--- NOTE | 2025-07-21 14:07 | DVH ---
EXAM: XY CHEST PORTABLE Indication: cp Technique: Single frontal view of the chest was obtained Comparison: XY CHEST XRAY 1 VIEW on DOS: 05/24/25, XY CHEST XRAY 1 VIEW on DOS: 05/23/25, XY CHEST PORT ABLE on DOS: 05/21/25, XY CHEST XRAY 1 VIEW on DOS: 05/17/25, XY CHEST PORTABLE on DOS: 01/31/25 FINDINGS: Lines and Tubes: None Lungs: Low lung volumes with diffuse interstitial opacities. Pleura: No effusion. No pneumothorax. Cardiomediastinal contours: Unremarkable. Atherosclerotic vascular calcifications of the thoracic ao rta are noted. Bones: No acute osseous abnormality. IMPRESSION: Low lung volumes with diffuse interstitial opacities.
[2025-07-21 14:08] LABS: BUN/Creatinine Ratio 32.8 (10.0-20.0); Blood Urea Nitrogen 59 mg/dL (9-23); Glucose 139 mg/dL (74-106)
--- NOTE | 2025-07-21 14:15 | ECG ---
[facility] Test Date: 2025-07-21 Test Time: 14:13:56 Pat Name: GEORGE ZUNIGA Department: Room: 0291T Gender: F Parachute/Combatant Diver Officer: CINTHIA : 1950 Requested By: KENNEDY HILARIO Order Number: [id number] Reading MD: Al Castellanos Measurements Intervals [place] Rate: 87 P: 63 [place]: 145 QRS: -3 QRSD: 63 T: 0 QT: 458 QTc: 551 Interpretive Statements Sinus rhythm Low voltage, precordial leads Prolonged QT interval Electronically Signed On 07-24-2025 18:48:05 PDT by Al Castellanos Please click the below link to view image of tracing.
--- NOTE | 2025-07-21 16:06 | ECG ---
[facility] Test Date: 2025-07-21 Test Time: 16:03:38 Pat Name: GEORGE ZUNIGA Department: Room: 0291T Gender: F Film Writer: MORELIA : 1950 Requested By: KENNEDY HILARIO Order Number: [id number] Reading MD: Al Castellanos Measurements Intervals [place] Rate: 92 P: 40 [place]: 150 QRS: -22 QRSD: 61 T: 0 QT: 451 QTc: 559 Interpretive Statements Sinus rhythm Borderline left axis deviation Low voltage, precordial leads Probable anteroseptal infarct, old Prolonged QT interval Electronically Signed On 07-24-2025 18:48:39 PDT by Al Castellanos Please click the below link to view image of tracing.
--- NOTE | 2025-07-21 16:30 | ECG ---
[facility] Test Date: 2025-07-21 Test Time: 13:11:08 Pat Name: GEORGE ZUNIGA Department: Room: 0291T Gender: F Older Adult Social Work Specialist: MORELIA : 1950 Requested By: KENNEDY HILARIO Order Number: [id number] Reading MD: Al Castellanos Measurements Intervals [place] Rate: 97 P: 22 [place]: 149 QRS: -2 QRSD: 66 T: 0 QT: 434 QTc: 552 Interpretive Statements Sinus rhythm Low voltage, precordial leads Nonspecific T abnormalities, lateral leads Prolonged QT interval Electronically Signed On 07-24-2025 18:47:44 PDT by Al Castellanos Please click the below link to view image of tracing.
[2025-07-21 19:44] VITALS: PULSE 96; RESP 18; O2SAT 97
--- NOTE | 2025-07-21 22:57 | DVHHP2 ---
History of Present Illness Reason for Visit: Acute chest pain History of Present Illness The patient is a 75-year-old female with past medical history of cancer, ESRD, hypertension, and liver disease who presented to [facility] ED with complaint of chest pain. EMS reports patient has been at [facility] for the past 5 days when she suddenly had sharp, 8/10 chest pain this morning with associated bilateral leg pain. Patient was seen and evaluated in the ED, laboratory data shows WBC 4.8, hemoglobin 10.8, hematocrit 32.9, platelets 137, sodium 138, potassium 4.1, BUN 59, creatinine 1.80, glucose 139, calcium 7.2, troponin 137, ammonia 11, blood pressure 92/59, heart rate 96, temperature 98.1 F, O2 saturation 97% on room air. Chest x-ray revealing low lung volumes with diffuse interstitial opacities. Please see medication orders section in the computer. On my assessment, patient denies chest pain at this moment, no headache, no dizziness, no shortness of breaths, no nausea, no vomiting, no fever, no chills. Patient was admitted for further evaluation and medical management. Past Medical History Cancer, ESRD, HTN, Liver disease Past Surgical History Stomach tumor removal Family History Reviewed, noncontributory to the management of this case. Past Social History The patient lives at home, denies smoking, alcohol or illicit drugs abuse. Review of Systems Constitutional: Yes: Weakness; No: Fever, Chills, Sweats, Malaise, Other Eyes: No: Pain, Vision change, Conjunctivae inflammation, Eyelid inflammation, Other, Redness ENT: No: Ear pain, Ear discharge, Nose pain, Nose discharge, Nose congestion, Mouth pain, Mouth swelling, Throat pain, Throat swelling, Other Respiratory: No: Cough, Dry, Shortness of breath, SOB with excertion, Wheezing, Hemoptysis, Pleuritic Pain, Sputum, Wheezing, Other Cardiovascular: Chest Pain; No: Palpitations, Orthopnea, Paroxysmal Noc. Dyspnea, Edema, Lt Headedness, Other Gastrointestinal: No: Nausea, Vomiting, Abdominal Pain, Diarrhea, Constipation, Melena, Hematochezia, Other Genitourinary: No Dysuria, No Frequency, No Incontinence, No Hematuria, No Retention, No Other Musculoskeletal: other (Leg pain); No: neck pain, shoulder pain, arm pain, back pain, hand pain, leg pain, foot pain Skin: No: Rash, Lesions, Jaundice, Bruising, Other Neurological: No: Weakness, Numbness, Incoordination, Change in speech, Confusion, Seizures, Other Allergies: Coded Allergies: NO KNOWN ALLERGIES (Unverified , 10/14/24) Exam Vital Signs Vital Signs Date Time Temp Pulse Resp B/P (MAP) Pulse Ox O2 Delivery O2 Flow Rate FiO2 07/21/25 19:44 98.1 96 18 92/59 (70) 97 98.1 07/21/25 19:44 Room Air* 0 21 General Appearance: Alert, Cooperative, No acute distress, Other (Oriented x2) HEENT: Atraumatic, PERRLA, EOMI, Mucous membr. moist/pink Respiratory: Normal air movement Cardiovascular: Regular rate, Normal S1, Normal S2, No murmurs Abdominal: Normal bowel sounds, Soft, No tenderness, No hepatospenomegaly, No masses Extremities: No clubbing, No cyanosis, No edema, Normal pulses, No tenderness/swelling Skin: No rashes, No significant lesion Neuro: Normal speech, Normal tone, Sensation intact, Cranial nerves 3-12 NL, Reflexes 2+, Other (Generalized weakness) Psych/Mental Status: Mental status NL, Mood NL Labs/Xrays Labs Test 07/21/25 16:57 07/21/25 13:41 Range/Units Troponin I High Sensitivity 137 *H </=34 ng/L White Blood Count 4.8 # 4.4-10.8 10^3/uL Red Blood Count 3.42 L 4.0-5.20 10^6/uL Hemoglobin 10.8 L 12.2-16.2 g/dL Hematocrit 32.9 #L 36.0-46.0 % Mean Corpuscular Volume 96.4 80.0-100.0 fL Mean Corpuscular Hemoglobin 31.6 28.0-32.0 pg Mean Corpuscular Hemoglobin Concent 32.8 32.0-36.0 g/dL Red Cell Distribution Width 17.1 H 11.8-14.3 % Platelet Count 137 L 140-450 10^3/uL Mean Platelet Volume 7.8 6.9-10.8 fL Neutrophils (%) (Auto) 77.9 37.0-80.0 % Lymphocytes (%) (Auto) 8.6 L 10.0-50.0 % Monocytes (%) (Auto) 11.2 0.0-12.0 % Eosinophils (%) (Auto) 2.2 0.0-7.0 % Basophils (%) (Auto) 0.1 0.0-2.0 % Neutrophils # (Auto) 3.8 1.6-8.6 10 ^3/uL Lymphocytes # (Auto) 0.4 0.4-5.4 10 ^3/uL Monocytes # (Auto) 0.5 0-1.3 10 ^3/uL Eosinophils # (Auto) 0.1 0-0.8 10 ^3/uL Basophils # (Auto) 0 0-0.2 10 ^3/uL Nucleated Red Blood Cells 0.1 % Sodium Level 138 136-145 mmol/L Potassium Level 4.1 3.5-5.1 mmol/L Chloride Level 105 98-107 mmol/L Carbon Dioxide Level 24 20-31 mmol/L Anion Gap 9 5-15 Blood Urea Nitrogen 59 H 9-23 mg/dL Creatinine 1.80 H 0.550-1.02 mg/dL Glomerular Filtration Rate Calc 29 >90 mL/min BUN/Creatinine Ratio 32.8 H 10.0-20.0 Serum Glucose 139 H 74-106 mg/dL Calcium Level 7.2 L 8.7-10.4 mg/dL Ammonia 11 11-32 umol/L PATIENT: GEORGE ZUNIGA ACCT: [id number] UNIT: [id number] : 1950 LOC: ER ROOM / BED: / AGE / SEX: 75 / F ADM STATUS: REG ER SERVICE [id number] ORDERING PHYSICIAN: KENNEDY HILARIO MD PROCEDURE(s): CXRP - CHEST PORTABLE REASON: cp ORDER NUMBER(s): [id number], ACCESSION NUMBER(s): [id number] EXAM: XY CHEST PORTABLE Indication: cp Technique: Single frontal view of the chest was obtained Comparison: XY CHEST XRAY 1 VIEW on DOS: 05/24/25, XY CHEST XRAY 1 VIEW on DOS: 05/23/25, XY CHEST PORTABLE on DOS: 05/21/25, XY CHEST XRAY 1 VIEW on DOS: 05/17/25, XY CHEST PORTABLE on DOS: 01/31/25 FINDINGS: Lines and Tubes: None Lungs: Low lung volumes with diffuse interstitial opacities. Pleura: No effusion. No pneumothorax. Cardiomediastinal contours: Unremarkable. Atherosclerotic vascular calcifications of the thoracic aorta are noted. Bones: No acute osseous abnormality. IMPRESSION: Low lung volumes with diffuse interstitial opacities. SEPSIS Sepsis Screen Date sepsis recognized/suspect: Jul 21, 2025 Time Sepsis recognized/suspect: 1946 Recent Procedure: No On Antibiotic Therapy: No Respiratory Rate >20: No Heart Rate >90: No Temp<36 C (96.8 F) or >38.3 C: No SBP <90 or MAP <65 mmHG: No New Acute Mental Status Change: No Is the patient on CPAP, BIPAP,: No Physician Orders Spironolactone (Aldactone) (07/22/25 10:00) Lactulose Oral (07/22/25 10:00) Vital Signs Date Time Temp Pulse Resp B/P (MAP) Pulse Ox O2 Delivery O2 Flow Rate FiO2 07/21/25 19:44 98.1 96 18 92/59 (70) 97 98.1 07/21/25 19:44 96 18 97 Room Air* 0 21 07/21/25 18:00 97.9 83 15 97/65 (76) 99 97.9 07/21/25 17:00 81 13 93/61 (72) 99 07/21/25 16:05 92 07/21/25 16:00 89 07/21/25 15:00 85 19 97/65 (76) 97 Laboratory Tests Test 07/21/25 13:41 White Blood Count 4.8 10^3/uL (4.4-10.8) # Assessment/Plan Assessment/Plan Acute chest pain Acute coronary syndrome Elevated troponin level Generalized weakness End-stage renal disease on peritoneal dialysis Plan 1. Admit to telemetry unit 2. Breathing treatment 3. Pain control management 4. Management of fluids and electrolytes 5. Consultation for Cardiology 6. Diagnostic tests chest x-ray 7. DVT prophylaxis-on aspirin 8. Repeat labs CBC, CMP in a.m. 9. Continue with current medical management 10. Treatment plan discussed with patient and RN. Patient verbalized understanding. Plan discussed with: Patient, Other (RN) My Orders Orders - MALLORY PEDRO DNP Procedure Category Date Status Time Spironolactone PHA 07/22/25 Verified (Aldactone) 10:00 Lactulose Oral PHA 07/22/25 Verified 10:00 Problem List: (1) Acute chest pain (2) Elevated troponin level (3) Acute coronary syndrome (4) Generalized weakness (5) End-stage renal disease on peritoneal dialysis Date of Service: Jul 21, 2025 Billing Provider: MALLORY PEDRO DNP Common Visit Codes: [id number] INP/OBS CARE (HIGH) MALLORY PEDRO DNP Jul 21, 2025 22:57
[2025-07-21] MEDS ORDERED: DOCUSATE SOD 100 MG CAP PO PRN (23:00)
[2025-07-21] MEDS ORDERED: MORPHINE SULFATE INJ 2 MG/ml SYRG IV PRN (23:00)
[2025-07-21] MEDS ORDERED: ONDANSETRON HCL 4 MG/2 ML VIAL IV PRN (23:00)
[2025-07-21] MEDS ORDERED: NITROGLYCERIN 0.4 MG SL TAB SL PRN (23:00)
--- NOTE | 2025-07-21 23:01 | DVHHP2 ---
History of Present Illness Reason for Visit: Acute chest pain Review of Systems Allergies: Coded Allergies: NO KNOWN ALLERGIES (Unverified , 10/14/24) Medications Current Medications Medications Dose Ordered Sig/Leti Route Start Time Stop Time Status Last Admin Dose Admin Spironolactone 25 mg DAILY PO 07/22/25 10:00 UNV Lactulose 30 ml BID PO 07/22/25 10:00 UNV Aspirin 81 mg DAILY PO 07/22/25 10:00 UNV Midodrine 10 mg TID@0600,1200,1800 PO 07/22/25 06:00 UNV Sodium Chloride 10 ml Q8HR IV 07/22/25 06:00 UNV Ondansetron HCl 4 mg Q4HP PRN IV 07/21/25 23:00 UNV Docusate Sodium 100 mg BIDPRN PRN PO 07/21/25 23:00 UNV Nitroglycerin 0.4 mg Q5MINP PRN SL 07/21/25 23:00 UNV Morphine Sulfate 2 mg Q30M PRN IV 07/21/25 23:00 UNV Exam Vital Signs Vital Signs Date Time Temp Pulse Resp B/P (MAP) Pulse Ox O2 Delivery O2 Flow Rate FiO2 07/21/25 19:44 98.1 96 18 92/59 (70) 97 98.1 07/21/25 19:44 Room Air* 0 21 Labs/Xrays Labs Test 07/21/25 16:57 07/21/25 13:41 Range/Units Troponin I High Sensitivity 137 *H </=34 ng/L White Blood Count 4.8 # 4.4-10.8 10^3/uL Red Blood Count 3.42 L 4.0-5.20 10^6/uL Hemoglobin 10.8 L 12.2-16.2 g/dL Hematocrit 32.9 #L 36.0-46.0 % Mean Corpuscular Volume 96.4 80.0-100.0 fL Mean Corpuscular Hemoglobin 31.6 28.0-32.0 pg Mean Corpuscular Hemoglobin Concent 32.8 32.0-36.0 g/dL Red Cell Distribution Width 17.1 H 11.8-14.3 % Platelet Count 137 L 140-450 10^3/uL Mean Platelet Volume 7.8 6.9-10.8 fL Neutrophils (%) (Auto) 77.9 37.0-80.0 % Lymphocytes (%) (Auto) 8.6 L 10.0-50.0 % Monocytes (%) (Auto) 11.2 0.0-12.0 % Eosinophils (%) (Auto) 2.2 0.0-7.0 % Basophils (%) (Auto) 0.1 0.0-2.0 % Neutrophils # (Auto) 3.8 1.6-8.6 10 ^3/uL Lymphocytes # (Auto) 0.4 0.4-5.4 10 ^3/uL Monocytes # (Auto) 0.5 0-1.3 10 ^3/uL Eosinophils # (Auto) 0.1 0-0.8 10 ^3/uL Basophils # (Auto) 0 0-0.2 10 ^3/uL Nucleated Red Blood Cells 0.1 % Sodium Level 138 136-145 mmol/L Potassium Level 4.1 3.5-5.1 mmol/L Chloride Level 105 98-107 mmol/L Carbon Dioxide Level 24 20-31 mmol/L Anion Gap 9 5-15 Blood Urea Nitrogen 59 H 9-23 mg/dL Creatinine 1.80 H 0.550-1.02 mg/dL Glomerular Filtration Rate Calc 29 >90 mL/min BUN/Creatinine Ratio 32.8 H 10.0-20.0 Serum Glucose 139 H 74-106 mg/dL Calcium Level 7.2 L 8.7-10.4 mg/dL Ammonia 11 11-32 umol/L SEPSIS Sepsis Screen Date sepsis recognized/suspect: Jul 21, 2025 Time Sepsis recognized/suspect: 1946 Recent Procedure: No On Antibiotic Therapy: No Respiratory Rate >20: No Heart Rate >90: No Temp<36 C (96.8 F) or >38.3 C: No SBP <90 or MAP <65 mmHG: No New Acute Mental Status Change: No Is the patient on CPAP, BIPAP,: No Physician Orders Spironolactone (Aldactone) (07/22/25 10:00) Lactulose Oral (07/22/25 10:00) Midodrine Tablet (Proamatine Tablet) (07/22/25 06:00) Admit (07/21/25 22:49) Allergies (07/21/25 22:49) Code Status (07/21/25 22:49) Sodium Chloride Lock (Saline Lock Ns) (07/22/25 06:00) Oxygen Per Hour (07/21/25 22:49) Ondansetron Hcl (Zofran) (07/21/25 23:00) Docusate Sodium Capsule (Colace Capsule) (07/21/25 23:00) Fall Risk Precautions In Place QSHIFT (07/21/25 22:49) Complete Blood Count (07/22/25 04:00) Comprehensive Metabolic Panel (07/22/25 04:00) Cardiac Diet-2gna,Lofat,Lochol (07/22/25 Breakfast) Condition: Serious (07/21/25 22:49) Maintain Bed Rest (07/21/25 22:49) Sequential Compression Device (07/21/25 ) Nitroglycerin Sublingual (Ntrostat Subli (07/21/25 23:00) Morphine Sulfate Injection (07/21/25 23:00) Stat Ekg For Chest Pain (07/21/25 22:49) Notify Md Of Changes From Base (07/21/25 22:49) Candy Counter Clerk For 24 Hours (07/21/25 22:49) Emergency Dysrhythmia Protocol (07/21/25 22:49) Rhythm Strips Once Every Shift (07/21/25 22:49) Oxygen By Nasal Cannula (07/21/25 22:49) Aspirin Tablet (07/22/25 10:00) Aspirin Tablet (07/21/25 23:00) Vital Signs Date Time Temp Pulse Resp B/P (MAP) Pulse Ox O2 Delivery O2 Flow Rate FiO2 07/21/25 19:44 98.1 96 18 92/59 (70) 97 98.1 07/21/25 19:44 96 18 97 Room Air* 0 21 07/21/25 18:00 97.9 83 15 97/65 (76) 99 97.9 07/21/25 17:00 81 13 93/61 (72) 99 07/21/25 16:05 92 07/21/25 16:00 89 Laboratory Tests Test 07/21/25 13:41 White Blood Count 4.8 10^3/uL (4.4-10.8) # Assessment/Plan My Orders Orders - MALLORY PEDRO DNP Procedure Category Date Status Time Spironolactone PHA 07/22/25 Logged (Aldactone) 10:00 Lactulose Oral PHA 07/22/25 Logged 10:00 Midodrine Tablet PHA 07/22/25 Logged (Proamatine Tablet) 06:00 Admit ADMIT 07/21/25 Transmitted 22:49 Allergies ARCHANA 07/21/25 In Process 22:49 Code Status CODE 07/21/25 Transmitted 22:49 Sodium Chloride Lock PHA 07/22/25 Logged (Saline Lock Ns) 06:00 Oxygen Per Hour RT 07/21/25 Transmitted 22:49 Ondansetron Hcl PHA 07/21/25 Logged (Zofran) 23:00 Docusate Sodium PHA 07/21/25 Logged Capsule (Colace 23:00 Fall Risk Precautions AR[facility]NA 07/21/[address] 22:49 Complete Blood Count LAB 07/22/25 Verified 04:00 Comprehensive LAB 07/22/25 Verified Metabolic Panel 04:00 Cardiac DIET 07/22/25 Transmitted Diet-2gna,Lofat,Lochol Breakfast Condition: Serious ARCHANA 07/21/25 In Process 22:49 Maintain Bed Rest [facility]NA 07/21/25 In Process 22:49 Sequential [facility] 07/21/25 In Process Compression Device Nitroglycerin [facility] 07/21/25 Logged Sublingual (Ntrostat 23:00 Morphine Sulfate [facility] 07/21/25 Logged Injection 23:00 Stat Ekg For Chest [facility] 07/21/25 In Process Pain 22:49 Notify Of Changes [facility] 07/21/25 In Process From Base 22:49 Candy Counter Clerk For [facility] 07/21/25 In Process 24 Hours 22:49 Emergency Dysrhythmia [facility] 07/21/25 In Process Protocol 22:49 Rhythm Strips Once [facility] 07/21/25 In Process Every Shift 22:49 Oxygen By Nasal RT 07/21/25 Transmitted Cannula 22:49 Aspirin Tablet PHA 07/22/25 Logged 10:00 Aspirin Tablet [facility] 07/21/25 Logged 23:00 MALLORY PEDRO DNP Jul 21, 2025 23:01
[2025-07-22] VITALS (11 sets, daily range): BP systolic 92–113; BP diastolic 58–64; PULSE 56–77; RESP 16–18; TEMP 97.5–98.5; O2SAT 96–99
[2025-07-22] MEDS: CALCIUM GLUC 1,000mg/50ml-NS 50 ML IV ONE (01:10)
[2025-07-22 04:12] LABS: Hematocrit 28.6 % (36.0-46.0); Hemoglobin 9.8 g/dL (12.2-16.2); Mean Corpuscular Hemoglobin 32.0 pg (28.0-32.0); Mean Corpuscular Volume 93.9 fL (80.0-100.0); Nucleated Red Blood Cells % 0.0 %
[2025-07-22 04:57] LABS: Alkaline Phosphatase 58 U/L (46-116); Anion Gap 9 (5-15); BUN/Creatinine Ratio 30.7 (10.0-20.0); Carbon Dioxide 23 mmol/L (20-31); Chloride 103 mmol/L (98-107); Glucose 91 mg/dL (74-106); Potassium 4.1 mmol/L (3.5-5.1)
[2025-07-22 04:58] LABS: Bilirubin, Total 0.4 mg/dL (0.2-1.0)
[2025-07-22 05:00] LABS: Alanine Aminotransferase 9 U/L (7-40); Albumin 2.0 g/dL (3.2-4.8); Blood Urea Nitrogen 47 mg/dL (9-23); Calcium 7.6 mg/dL (8.7-10.4); Sodium 135 mmol/L (136-145); Total Protein 4.5 g/dL (5.7-8.2)
[2025-07-22] MEDS: MIDODRINE HCL 10 MG TAB PO SCH (05:52)
[2025-07-22] MEDS: SODIUM CHLOR 0.9% PF (SALINE LOCK) 10ML VIAL/SYR IV SCH (05:55)
[2025-07-22] MEDS: LACTULOSE 20Gm/30ML SOLN PO SCH (09:51)
[2025-07-22] MEDS: SPIRONOLACTONE 25 MG TAB PO SCH (09:51)
[2025-07-23] VITALS (9 sets, daily range): BP systolic 92–108; BP diastolic 60–76; PULSE 53–80; RESP 16–17; TEMP 95.8–98.2; O2SAT 94–100
[2025-07-24 01:00] VITALS: BP 105/75; PULSE 58; RESP 16; TEMP 97; O2SAT 99
[2025-07-24 05:00] VITALS: BP 96/71; PULSE 59; RESP 16; TEMP 96.9; O2SAT 97
[2025-07-24 08:00] VITALS: PULSE 73
[2025-07-24 09:00] VITALS: BP 100/69; PULSE 65; RESP 14; TEMP 97.4; O2SAT 96
[2025-07-24 12:49] VITALS: BP 100/68; PULSE 98; RESP 16; TEMP 97.3; O2SAT 99
--- NOTE | 2025-07-24 13:48 | DVHDS2 ---
Discharge Summary Date of Admission Jul 21, 2025 at 22:49 Date of Discharge: Jul 24, 2025 Labs/Diagnostic Data: Laboratory Results Test 07/22/25 03:47 07/21/25 16:57 07/21/25 13:41 White Blood Count 4.8 10^3/uL (4.4-10.8) Red Blood Count 3.05 10^6/uL (4.0-5.20) Hemoglobin 9.8 g/dL (12.2-16.2) Hematocrit 28.6 % (36.0-46.0) Mean Corpuscular Volume 93.9 fL (80.0-100.0) Mean Corpuscular Hemoglobin 32.0 pg (28.0-32.0) Mean Corpuscular Hemoglobin Concent 34.1 g/dL (32.0-36.0) Red Cell Distribution Width 16.3 % (11.8-14.3) Platelet Count 119 10^3/uL (140-450) Mean Platelet Volume 7.5 fL (6.9-10.8) Neutrophils (%) (Auto) 71.4 % (37.0-80.0) Lymphocytes (%) (Auto) 9.8 % (10.0-50.0) Monocytes (%) (Auto) 11.7 % (0.0-12.0) Eosinophils (%) (Auto) 6.7 % (0.0-7.0) Basophils (%) (Auto) 0.4 % (0.0-2.0) Neutrophils # (Auto) 3.4 10 ^3/uL (1.6-8.6) Lymphocytes # (Auto) 0.5 10 ^3/uL (0.4-5.4) Monocytes # (Auto) 0.6 10 ^3/uL (0-1.3) Eosinophils # (Auto) 0.3 10 ^3/uL (0-0.8) Basophils # (Auto) 0 10 ^3/uL (0-0.2) Nucleated Red Blood Cells 0.0 % Sodium Level 135 mmol/L (136-145) Potassium Level 4.1 mmol/L (3.5-5.1) Chloride Level 103 mmol/L (98-107) Carbon Dioxide Level 23 mmol/L (20-31) Anion Gap 9 (5-15) Blood Urea Nitrogen 47 mg/dL (9-23) Creatinine 1.53 mg/dL (0.550-1.02) Glomerular Filtration Rate Calc 35 mL/min (>90) BUN/Creatinine Ratio 30.7 (10.0-20.0) Serum Glucose 91 mg/dL (74-106) Calcium Level 7.6 mg/dL (8.7-10.4) Total Bilirubin 0.4 mg/dL (0.2-1.0) Aspartate Amino Transferase (AST) 33 U/L (13-40) Alanine Aminotransferase (ALT) 9 U/L (7-40) Alkaline Phosphatase 58 U/L (46-116) Total Protein 4.5 g/dL (5.7-8.2) Albumin 2.0 g/dL (3.2-4.8) Troponin I High Sensitivity 137 ng/L (</=34) Ammonia 11 umol/L (11-32) Other Laboratory Tests 07/22/25 03:47 Brief Hx & Hospital Course: Final diagnoses: Liver disease Cirrhosis Ascites CKD The patient is a 75-year-old female with past medical history of CKD, hypertension, and liver disease with recurrent ascites who was at home on hospice who presented to [facility] ED with complaint of chest pain. Troponins were slightly high but plataue No chest pain now She has a peritoneal catheter to drain the ascites fluid Patient is stable for discharge Discussed with daughter Nani, wants her to come home back on hospice Condition at Discharge: Poor Final Diagnosis/Problems List Liver disease Cirrhosis Ascites Discharge Disposition: Hospice - Home SNF Discharge Will this Physician continue t: No Discharge Instruct/Medications Diet: Regular Activity: No Restrictions, As Tolerated Follow Up/Referral: Hospice at home Medications: Per hospice Scheduled Ferrous Sulfate (Ferosul), 325 MG PO DAILY, (Reported) Lactulose (Lactulose), 15 GM PO TID, (Reported) Midodrine Hcl (Midodrine Hcl), 10 MG PO BID Rifaximin (Xifaxan), 1 TAB PO BID Sodium Bicarbonate (Sodium Bicarbonate), 650 MG PO TID Spironolactone (Spironolactone), 1 TAB PO DAILY, (Reported) Discharge Statement: "Patient was advised to return to the ER or call 911 if any headaches, dizziness, shortness of breath, chest pain, abdominal pain, bleeding, fevers, or worsening of medical condition. Patient was counseled about treatment plan, medications, possible side effects, patientverbalized understanding. All questions were answered to the best of my ability. This discharge took greater then 30 minutes in planning, reviewing documentation, counseling the patient, and discussing with other team members." ASSESSMENT ASSESSMENT Assessment Liver disease Cirrhosis Ascites Date of Service: Jul 24, 2025 Billing Provider: DAVY ZAZUETA MD Common Visit Codes: [id number] DISCH DAY >30min DAVY ZAZUETA MD Jul 24, 2025 13:48
[2025-07-24 16:57] VITALS: BP 107/79; PULSE 90; RESP 16; TEMP 97.8; O2SAT 97
== END 2025-07-24 20:44 | disposition hospice, home (50) | DRG 432 ==
LOC: ER 13:10 → EDBD 13:10 → OVERFLOW 22:49 → TELE-WESTW 07-22 04:45
PROVIDERS: ADMIT Internal Medicine Geriatric Medicine; ATTEND Internal Medicine Geriatric Medicine
DX: K74.60 Unspecified cirrhosis of liver (principal); E43 Unspecified severe protein-calorie malnutrition; L89.613 Pressure ulcer of right heel, stage 3; R18.8 Other ascites; I24.9 Acute ischemic heart disease, unspecified; Z68.1 Body mass index [BMI] 19.9 or less, adult; Z51.5 Encounter for palliative care; Z99.2 Dependence on renal dialysis; Z79.899 Other long term (current) drug therapy; I12.9 Hypertensive chronic kidney disease with stage 1 through stage 4 chronic kidney disease, or unspecified chronic kidney disease; N18.30 Chronic kidney disease, stage 3 unspecified; R79.89 Other specified abnormal findings of blood chemistry
CPT/HCPCS: 36415; 71045; 80048; 80053; 82140; 84484; 85025; 93005; 99291; G0378